=== PATIENT | male | born 1935 | race Caucasian/White ===

== ENCOUNTER 2016-07-12 19:54 | Inpatient (IN) | payer OTHER, BC ==
--- NOTE | 2016-07-12 19:59 | PDOC ---
History of Present Illness - General History Source: Family Exam Limitations: Other - History of Present Illness Initial Comments: 07/12/16 20:17 The patient is a 80 year old male, here with his and daughters with a significant past medical history of HTN, hypercholesterolemia, gout, anxiety, TIA, GI bleed, and depression, who presents to the emergency department with altered mental status since yesterday. The patients reports yesterday that the patient had an episode of choking where he turned blue. She reports the patient having respiratory distress and coughing during/after the choking episode. The notes that at around 10am today the patient was sleeping. His daughters later note that at around 4:00pm today they started to notice the patient was completely lethargic and had a lack of energy. It was also around this time where the daughter noticed the patient has had slurred/difficulty with speech since that was worse than his normal baseline. He denies chest pain and shortness of breath. He denies fever, chills, headache and dizziness. He denies nausea, vomit, diarrhea and constipation. He denies dysuria, frequency, urgency and hematuria. Allergies: Penicillin Social History: Nonsmoker PCP: Dr.Thomas Sears [phone] <Christopher Gallagher - Last Filed: 07/12/16 21:49> <Bobby Smith - Last Filed: 07/12/16 23:20> - General Stated Complaint: AMS Time Seen by Provider: 07/12/16 19:58 Past History <Christopher Gallagher - Last Filed: 07/12/16 21:49> - Past Medical History CVA: (TIA) GI Disorders: Yes (GI bleed) HTN: Yes Hypercholesterolemia: Yes Psychiatric Problems: Yes (AXIETY, DEPRESSION) - Immunization History Immunization Up to Date: Yes - Psycho/Social/Smoking Cessation Hx Anxiety: No Suicidal Ideation: No Smoking Status: No Smoking History: Never smoked Have you smoked in the past 12 months: No Number of Cigarettes Smoked Daily: 0 Hx Alcohol Use: No Drug/Substance Use Hx: No Substance Use Type: None Hx Substance Use Treatment: No <Bobby Smith - Last Filed: 07/12/16 23:20> - Past Medical History Allergies/Adverse Reactions: Allergies Allergy/AdvReac Type Severity Reaction Status Date / Time Penicillins Allergy Mild Nausea Verified 06/29/16 14:57 Home Medications: Ambulatory Orders Allopurinol [Zyloprim -] 300 mg PO DAILY 09/24/14 Atorvastatin Ca [Lipitor] 20 mg PO HS 09/24/14 Acetaminophen [Tylenol .Regular Strength -] 650 mg PO Q4H PRN #0 tablet Amlodipine Besylate [Norvasc -] 10 mg PO DAILY tablet 07/11/16 Aspirin [ASA -] 81 mg PO DAILY #0 tab.chew 07/11/16 Carvedilol [Coreg -] 25 mg PO BID #0 tablet 07/11/16 Fluoxetine HCl Liquid [Prozac 20mg/5mL Oral Solution -] 40 mg PO DAILY #0 ml Hydroxyurea [Hydrea 500Mg Capsule -] 500 mg PO BID@0600,1800 #0 capsule Risperidone [Risperdal -] 1 mg PO BID #0 tablet 07/11/16 Valsartan [Diovan] 160 mg PO DAILY #0 tablet 07/11/16 Alprazolam [Xanax] 1 mg PO QID PRN 07/12/16 Review of Systems - Review of Systems Comments:: 07/12/16 20:17 CONSTITUTIONAL: Yes: lethargic. No fever, no chills, no fatigue EYES: No visual changes ENT: No ear pain, no sore throat CARDIOVASCULAR: No chest pain, no palpitations RESPIRATORY: No cough, no SOB GI: No abdominal pain, no nausea, no vomiting, no constipation, no diarrhea GENITOURINARY: No dysuria, no frequency, no hematuria MUSKULOSKELETAL: No backpain, no joint pain, no myalgias SKIN: No rash NEURO: Yes: AMS. No headache <Christopher Gallagher - Last Filed: 07/12/16 21:49> *Physical Exam - Vital Signs Last Vital Signs Temp Pulse Resp BP Pulse Ox 99.8 F H 64 26 H 110/64 92 L 07/12/16 19:59 07/12/16 19:59 07/12/16 19:59 07/12/16 19:59 07/12/16 19:59 <Christopher Gallagher - Last Filed: 07/12/16 21:49> - Physical Exam Comments: 07/12/16 20:28 EXAMINATION CONSTITUTIONAL: Lethargic but arousable, moaning incoherently, morbidly obese, and mild to moderate respiratory distress HEAD: Normocephalic; atraumatic EYES: PERRL; EOM intact; no scleral icterus; conjunctivae were pink; ENMT: External appears normal; mm-dry NECK: Supple; non-tender; no bruits CARD: Normal S1, S2; no murmurs, rubs, or gallops RESP: Shallow respirations; + bilateral rhonchi (worse at the bases); ABD: Soft, non-distended; non-tender; no palpable organomegaly, no palpable hernias EXT: No edema; no deformity, non-tender to palpation; distal pulses intact SKIN: Warm, dry, no petechia NEURO: Patient is lethargic but arousable, moaning incoherently; follows simple Commands; I'm unable to test cranial nerves; + pronation drift on the left; motor: Right upper extremity-5/5; left upper extremity-4/5; right lower extremity-5/5; left lower extremity -3/5; Babinski is positive on the left; gait -deferred. <Bobby Smith - Last Filed: 07/12/16 23:20> Heart Score/ECG Review - ECG Impressions Comment:: 07/12/16 20:52 EKG impressions reported by at 8:43pm: Normal sinus rhythm at 64 bpm OR interval at 194 ms QTc 445 ms <Christopher Gallagher - Last Filed: 07/12/16 21:49> ED Treatment Course - LABORATORY CBC & Chemistry Diagram: 07/12/16 20:15 07/12/16 20:15 - RADIOLOGY Radiograph Interpretation: 07/12/16 21:49 EXAM: HEAD CT WITHOUT CONTRAST impression reported by Dr.[place] Byrd FINDINGS: No acute intracranial hemorrhage, midline shift or extra-axial collection. No acute territorial infarction. There is a small vessel ischemic change and atrophy. Bilateral ethmoid and maxillary sinus because of thickening. No acute calvarial fracture. EXAM: CT abdomen and CT pelvis without contrast impressions reported by Dr.[place] Byrd FINDINGS: Cardiomegaly. No pericardial effusion. No aortic aneurysm. The right lower lobe infiltrate and/or atelectasis. Atelectatic changes left base. Trace bilateral pleural effusions. 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 Patient had experienced a choking episode 24 hours previously during which he was noted to turn cyanotic. In the ER, patient is lethargic but arousable, moaning coherently, follows simple commands. Differential diagnoses includes aspiration pneumonia versus PE versus recurrent CVA. Patient is not a TPA candidate at this time given that last known well was approximately 18-24 hours prior to presentation. Will obtain repeat CT of head to rule out recurrent infarction. We'll perform a septic workup to evaluate for possible aspiration pneumonia. We will administer Combivent therapy. Will reassess. Likely admission. 07/12/16 22:41 Patient reassessed. Patient appears much more alert and awake, with more legible speech although it is still slurred. Patient follows commands. CT of head shows no evidence of acute intracranial pathology. CT of chest shows right lower lobe infiltrate, cardiomegaly and bilateral small pleural effusions. CBC reveals mild leukocytosis as well as persistent thrombocytosis. CMP reveals worsening BUN and creatinine likely related to acute renal insufficiency. Urinalysis within normal limit. ABG reveals severe hypoxemia on room air. I suspect aspiration pneumonia at this time. I discussed the case with Dr. Rishi eason. He recommends administration of ertapenem. Will admit to noncardiac telemetry for further treatment. <Bobby Smith - Last Filed: 07/12/16 23:20> *DC/Admit/Observation/Transfer - Attestations Scribe Attestion: 07/12/16 20:18 Documentation prepared by Christopher Gallagher, acting as biomedical manager for Bobby Smith MD. <Christopher Gallagher - Last Filed: 07/12/16 21:49> - Discharge Dispostion Admit: Yes - Attestations Physician Attestion: 07/12/16 20:58 The documentation was prepared by the scribe under my direct supervision. I have reviewed the documentation which correctly represents the findings, medical decision-making and critical action taken by me. <Bobby Smith - Last Filed: 07/12/16 23:20> Diagnosis at time of Disposition: Acute renal insufficiency Altered mental status Qualifiers: Altered mental status type: transient alteration of awareness Qualified Code(s) : R40.4 - Transient alteration of awareness Pneumonia Qualifiers: Pneumonia type: aspiration pneumonia Aspiration pneumonia type: unspecified Laterality: right Lung location: lower lobe of lung Qualified Code(s): J69.0 - Pneumonitis due to inhalation of food and vomit - Discharge Dispostion Condition at time of disposition: Guarded - Referrals Referrals: Homero Proctor MD [Primary Care Provider] -
[2016-07-12] MEDS ORDERED: SODIUM CHLORIDE 0.9% 1000 ML INFUS.BAG IV PRN (20:09)
[2016-07-12] MEDS ORDERED: ALBUTEROL SO4 2.5/IPRATROPIUM 0.5 INH SOL 3 ML VIAL.NEB. NEB ONE (20:10)
[2016-07-12 20:15] VITALS: BMI 31.0
[2016-07-12 20:31] LABS: WHITE BLOOD COUNT 14.3 K/mm3 (4.0-10.0)
[2016-07-12 20:37] LABS: VENOUS PH 7.29 (7.31-7.41)
[2016-07-12 20:39] LABS: VENOUS BLOOD GAS HCO3 23.1 meq/L (22-29)
[2016-07-12 20:45] LABS: INR 1.12 (0.82-1.09); PROTHROMBIN TIME (PATIENT) 12.4 SEC (9.98-11.88)
[2016-07-12 20:46] LABS: MCH 30.1 pg (25.7-33.7); MCHC 32.4 g/dl (32.0-35.9); MEAN CELL VOLUME 93.1 fl (80-96); MEAN PLT VOLUME 8.8 fl (7.5-11.1); PLATELET COUNT 638 K/MM3 (134-434)
[2016-07-12 20:48] LABS: ACTIVATED PTT 31.9 SECONDS (26.9-34.4)
[2016-07-12 20:56] LABS: ALBUMIN 3.1 g/dl (3.4-5.0); BILIRUBIN,TOTAL 0.6 mg/dL (0.2-1.0); CALCIUM 8.9 mg/dL (8.5-10.1); CREATININE 2.6 mg/dL (0.7-1.3); TOT PROT 6.7 g/dl (6.4-8.2)
[2016-07-12 20:58] LABS: TROPONIN I 0.02 ng/ml (0.00-0.05)
[2016-07-12 20:59] LABS: URINE APPEARANCE CLEAR; URINE BILIRUBIN NEGATIVE (NEGATIVE); URINE BLOOD NEGATIVE (NEGATIVE); URINE COLOR YELLOW; URINE GLUCOSE (UA) NEGATIVE (NEGATIVE); URINE KETONE NEGATIVE (NEGATIVE); URINE LEUK ESTERASE NEGATIVE (NEGATIVE); URINE NITRITE NEGATIVE (NEGATIVE); URINE PROTEIN NEGATIVE (NEGATIVE); URINE UROBILINOGEN 2.0 E.U/dl E.U./dl (0.2-1.0)
[2016-07-12 21:53] LABS: PLATELET COMMENT2 NO CLOTTING DETECTED; PLATELET COMMENT3 FEW LARGE PLTS; PLATELET ESTIMATE INCREASED (NORMAL)
[2016-07-12 21:57] LABS: ARTERIAL BLD GAS O2 SATURATION 84.9 % (90-98.9); ARTERIAL BLOOD GAS HCO3 25.8 meq/L (22-26); ARTERIAL BLOOD GAS pH 7.38 (7.35-7.45)
[2016-07-12 21:58] LABS: ALLENS TEST POSITIVE; METHEMOGLOBIN 1.4 % (0.4-1.5)
[2016-07-12 21:59] LABS: ART PUNCT SITE RIGHT RADIAL; LPM/O2% 21%; PT. ON O2? NO; TYPE OF O2 ROOM AIR
[2016-07-12 22:00] LABS: ARTERIAL BLOOD GAS PO2 52.3 mmHg (70-100)
[2016-07-12] MEDS ORDERED: SODIUM CHLORIDE 500 ML IV STA (22:08)
[2016-07-12] MEDS ORDERED: ERTAPENEM SODIUM 1 GM in SODIUM CHLORIDE 50 ML IVPB ONE (22:16)
[2016-07-12] MEDS ORDERED: ERTAPENEM SODIUM 1 GM VIAL ONE (22:39)
[2016-07-12] MEDS ORDERED: ALPRAZolam 2 MG TABLET ONE (22:55)
[2016-07-12] MEDS ORDERED: ATORVASTATIN CA 40 MG TABLET (FP) ONE (22:56)
--- NOTE | 2016-07-12 23:08 | PN ---
Teaching Attending Note Name of Resident: Rosa Pina ATTENDING PHYSICIAN STATEMENT I saw and evaluated the patient. I reviewed the resident's note and discussed the case with the resident. I agree with the resident's findings and plan as documented. SUBJECTIVE: OBJECTIVE: ASSESSMENT AND PLAN:
[2016-07-12] MEDS ORDERED: ATORVASTATIN CA 20 MG TABLET (FP) PO ONE (23:15)
[2016-07-13] MEDS ORDERED: D5-1/2NS+20 MEQ KCL - 1,000 ML IV SCH (00:50)
[2016-07-13 07:21] LABS: BASOPHIL 1.1 % (0-2.0); EOSINOPHIL 5.7 % (0-4.5); MCH 31.7 pg (25.7-33.7); MCHC 33.4 g/dl (32.0-35.9); MEAN CELL VOLUME 94.9 fl (80-96); MEAN PLT VOLUME 8.5 fl (7.5-11.1); NEUTROPHILS 62.6 % (42.8-82.8); PLATELET COUNT 573 K/MM3 (134-434); RDW 14.2 % (11.9-15.9); WHITE BLOOD COUNT 10.7 K/mm3 (4.0-10.0)
[2016-07-13 07:42] LABS: ALBUMIN 2.8 g/dl (3.4-5.0); CALCIUM 7.9 mg/dL (8.5-10.1); CREATININE 2.2 mg/dL (0.7-1.3)
[2016-07-13 07:45] LABS: BILIRUBIN,TOTAL 0.5 mg/dL (0.2-1.0); TOT PROT 6.1 g/dl (6.4-8.2); TROPONIN I 0.02 ng/ml (0.00-0.05)
--- NOTE | 2016-07-13 08:34 | PN ---
Progress Note, Physician Chief Complaint: ID Poorly responsive Sats in the low 90s Gave Ertepenem after discussion wit ER - Current Medication List Current Medications: Active Medications Potassium Chloride/Dextrose/Sod Cl (D5-1/2ns+20 Meq Kcl -) 1,000 mls @ 75 mls/ hr IV ASDIR LORENE Last Admin: 07/13/16 03:22 Dose: 75 mls/hr Ertapenem 1 gm/ Sodium (Chloride) 50 mls @ 100 mls/hr IVPB DAILY LORENE Influenza Virus Vaccine (Fluvirin) 45 mcg IM .ONCE ONE Stop: 07/13/16 09:01 Pneumococcal 13-Valent Conj Vacc (Prevnar 13 Syringe -) 0.5 ml IM .ONCE ONE Stop: 07/13/16 09:01 - Objective Vital Signs: Vital Signs Temperature 98.2 F 07/13/16 08:11 Pulse Rate 65 07/13/16 08:11 Respiratory Rate 20 07/13/16 08:11 Blood Pressure 124/67 07/13/16 08:11 O2 Sat by Pulse Oximetry (%) 92 L 07/13/16 01:41 Constitutional: Yes: Other (Unresponsive) Neck: Yes: WNL, Supple Cardiovascular: Yes: S1, S2, Varicosities Respiratory: Yes: WNL, CTA Bilaterally Gastrointestinal: Yes: WNL, Normal Bowel Sounds, Soft Edema: No Labs: CBC, BMP 07/13/16 06:00 07/13/16 06:00 INR, PTT INR 1.12 (0.82-1.09) 07/12/16 20:15 Problem List - Problems (1) Altered mental status Code(s): R41.82 - ALTERED MENTAL STATUS, UNSPECIFIED Qualifiers: Altered mental status type: transient alteration of awareness Qualified Code(s): R40.4 - Transient alteration of awareness (2) Sepsis Code(s): A41.9 - SEPSIS, UNSPECIFIED ORGANISM (3) Aspiration pneumonia Code(s): J69.0 - PNEUMONITIS DUE TO INHALATION OF FOOD AND VOMIT Assessment/Plan Laboratory Tests 07/12/16 07/12/16 07/12/16 20:15 20:15 20:15 WBC 14.3 H RBC 4.39 Hct 40.9 Plt Count 638 H ABG pH ABG pCO2 at Pt Temp ABG pO2 at Pt Temp POC VBG pCO2 49.2 BUN 45 H D Creatinine 2.6 H D Creat Clearance w eGFR 23.99 Lactic Acid 07/12/16 07/13/16 21:45 03:30 WBC RBC Hct Plt Count ABG pH 7.38 ABG pCO2 at Pt Temp 44.5 ABG pO2 at Pt Temp 52.3 L D POC VBG pCO2 BUN Creatinine Creat Clearance w eGFR Lactic Acid 4.142 H* Assessment Altered mental status toxic metabolic encephalopathy Aspiration PNA ANSELMO Thrombocytosis Plan Ertepenem Plan Ertepenem 1 gr daily PCN allergic Consider neuro evaluation and ICU transfer Ritu ÁLVAREZ
[2016-07-13] MEDS ORDERED: PNEUMOC 13-VAL CONJ-DIP CRM/PF 0.5 ML DISP.SYRIN IM ONE (09:00)
[2016-07-13] MEDS ORDERED: INFLUENZA VACCINE 45 MCG/0.5 ML (MDV 16-17) IM ONE (09:00)
--- NOTE | 2016-07-13 09:14 | HP ---
Admitting History and Physical - Admission History of Present Illness: 80 year old male with a significant past medical history of HTN, hypercholesterolemia, gout, anxiety, TIA, GI bleed, and depression, who presents to the emergency department with altered mental status since yesterday. The patients reports that the patient had an episode of choking where he turned blue. She reports the patient having respiratory distress and coughing during/after the choking episode. Due to lethargy and had a lack of energy he was sent to er. 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 Cardiovascular: Yes: HTN, Hyperlipdemia Psych: Yes: Anxiety, Depression - Smoking History Smoking history: Never smoked Have you smoked in the past 12 months: No Aproximately how many cigarettes per day: 0 - Alcohol/Substance Use Hx Alcohol Use: No Home Medications - Allergies Allergies/Adverse Reactions: Allergies Allergy/AdvReac Type Severity Reaction Status Date / Time Penicillins Allergy Mild Nausea Verified 06/29/16 14:57 - Home Medications Home Medications: Ambulatory Orders Allopurinol [Zyloprim -] 300 mg PO DAILY 09/24/14 Atorvastatin Ca [Lipitor] 20 mg PO HS 09/24/14 Acetaminophen [Tylenol .Regular Strength -] 650 mg PO Q4H PRN #0 tablet Amlodipine Besylate [Norvasc -] 10 mg PO DAILY tablet 07/11/16 Aspirin [ASA -] 81 mg PO DAILY #0 tab.chew 07/11/16 Carvedilol [Coreg -] 25 mg PO BID #0 tablet 07/11/16 Fluoxetine HCl Liquid [Prozac 20mg/5mL Oral Solution -] 40 mg PO DAILY #0 ml Hydroxyurea [Hydrea 500Mg Capsule -] 500 mg PO BID@0600,1800 #0 capsule Risperidone [Risperdal -] 1 mg PO BID #0 tablet 07/11/16 Valsartan [Diovan] 160 mg PO DAILY #0 tablet 07/11/16 Alprazolam [Xanax] 1 mg PO QID PRN 07/12/16 Review of Systems - Review of Systems Constitutional: reports: Lethargy Respiratory: reports: Cough Neurological: reports: Change in LOC, Weakness Physical Examination Vital Signs: Vital Signs Temperature 98.2 F 07/13/16 08:11 Pulse Rate 65 07/13/16 08:11 Respiratory Rate 20 07/13/16 08:11 Blood Pressure 124/67 07/13/16 08:11 O2 Sat by Pulse Oximetry (%) 92 L 07/13/16 01:41 Neck: Yes: Supple Cardiovascular: Yes: Regular Rate and Rhythm Respiratory: Yes: Rhonchi Gastrointestinal: Yes: Normal Bowel Sounds, Soft. No: Tenderness Edema: No Labs: CBC, BMP 07/13/16 06:00 07/13/16 06:00 Problem List - Problems (1) Sepsis Assessment/Plan: IV ABX MONITOR LACTIC ACID ID ON BOARD HYDRATION ICU EVAL Code(s): A41.9 - SEPSIS, UNSPECIFIED ORGANISM (2) Acute renal insufficiency Assessment/Plan: IVF WILL INCREASE FLUIDS TO DNS @ 125 MONITOR Code(s): N28.9 - DISORDER OF KIDNEY AND URETER, UNSPECIFIED (3) Altered mental status Assessment/Plan: MONITOR ON FLUIDS AND ABX AWAIT OFFICIAL CT RESULTS Code(s): R41.82 - ALTERED MENTAL STATUS, UNSPECIFIED Qualifiers: Altered mental status type: transient alteration of awareness Qualified Code(s): R40.4 - Transient alteration of awareness (4) Pneumonia Assessment/Plan: IV ABX D/W DR STREETER MONITOR LACTIC ACID Code(s): J18.9 - PNEUMONIA, UNSPECIFIED ORGANISM Qualifiers: Pneumonia type: aspiration pneumonia Aspiration pneumonia type: unspecified Laterality: right Lung location: lower lobe of lung Qualified Code(s): J69.0 - Pneumonitis due to inhalation of food and vomit (5) Anxiety and depression Assessment/Plan: HOLD MEDS DUE TO LETHARGY Code(s): F41.9 - ANXIETY DISORDER, UNSPECIFIED F32.9 - MAJOR DEPRESSIVE DISORDER, SINGLE EPISODE, UNSPECIFIED (6) DVT prophylaxis Assessment/Plan: SQ HEPARIN Code(s): [id number] - (7) Thrombocytosis Assessment/Plan: CONTINUE WIT MEDS Code(s): D47.3 - ESSENTIAL (HEMORRHAGIC) THROMBOCYTHEMIA
[2016-07-13] MEDS: FLUoxetine HCL 20 MG CAPSULE (FP) PO SCH (09:44)
[2016-07-13] MEDS: CARVEDILOL 25 MG TABLET (FP) PO SCH ×2 (09:44→21:44)
[2016-07-13] MEDS: ASPIRIN 81 MG CHEWABLE TABLETS PO SCH (09:44)
[2016-07-13] MEDS: ALLOPURINOL 300 MG TABLET (FP) PO SCH (09:45)
[2016-07-13] MEDS ORDERED: ERTAPENEM SODIUM 1 GM in SODIUM CHLORIDE 50 ML IVPB SCH (10:00)
[2016-07-13] MEDS: ERTAPENEM SODIUM 1 GM in SODIUM CHLORIDE 50 ML IVPB SCH (10:52)
[2016-07-13] MEDS: POTASSIUM CHLORIDE 10 MEQ in DEXTROSE 5%-NORMAL SALINE 1,000 ML IVPB SCH ×2 (10:52→19:45)
--- NOTE | 2016-07-13 11:41 | CONS ---
DATE OF CONSULTATION: DATE OF DICTATION: 07/13/2016 This is a 80-year-old male who I am asked to see, having discussed the case with Dr. Smith in the ER, for sepsis syndrome and pneumonia. The patient has a history of a thrombocytosis, for which he was recently seen and evaluated and discharged only several days ago to a half-way. He apparently has a history of an esophageal disorder with swallowing difficulty and is on a puree diet. Yesterday, he apparently tried to eat solid food and started choking and subsequently developed respiratory distress. He was then noted to be extremely lethargic and brought to the emergency room with the ER note indicating slurred and difficult speech. He had a CT scan of the head done, which is currently pending the report. He was also noted to be in respiratory failure with pneumonia and given a dose of ertapenem in the face of a PENICILLIN allergy. PAST MEDICAL HISTORY: Hypertension, hyperlipidemia, gout, TIA, GI bleeding, depression, and primary thrombocytosis. MEDICATIONS: Allopurinol, atorvastatin, amlodipine, aspirin, carvedilol, Prozac, hydroxyurea, Risperdal, Diovan, and Xanax. ALLERGIES: PENICILLIN. SOCIAL HISTORY: . Never smoked. No history of substance abuse. FAMILY HISTORY: Reviewed and noncontributory. REVIEW OF SYSTEMS: Respiratory: Tachypnea. No cough or hemoptysis. Cardiac: No chest pain, palpitations, syncope, murmur. Gastrointestinal: No abdominal pain, vomiting. Positive choking episode. No blood per rectum. Genitourinary: Currently incontinent of urine. No gross hematuria noted. PHYSICAL EXAMINATION: General: He was an elderly male, poorly responsive to verbal stimuli. Vital Signs: His temperature maximum was 99.8, but currently afebrile. Pulse 61, blood pressure 116/59, respirations 18, O2 saturation 92% on nasal cannula 2 L. Neck: Supple. Lungs: Clear to percussion and auscultation. Heart: S1, S2, regular rhythm without audible murmur. Abdomen: Soft, nontender without hepatosplenomegaly. Extremities: Without clubbing, cyanosis, or edema. The white count was 14.3, hemoglobin 13.2, platelets of 638 with 78% polyps, 5 lymphs, 5 monos, 6 eosinophils, 5 reactive lymphocytes. INR 1.2. ABG 7.38, 44, 58 on room air. BUN 40, creatinine 2.2. Liver enzymes within normal limits. Urinalysis screening negative for nitrites and leukocyte esterase. Two sets of blood cultures, urine culture pending. CT scan of the chest was reviewed and shows bilateral infiltrates, more pronounced on the right side with air bronchograms. CT of the head report pending. ASSESSMENT: A 80-year-old male recently discharged with history of subacute cerebrovascular accident and primary thrombocytosis, presents now following a choking episode on solid food, during which he probably aspirated. 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 He is PENICILLIN allergic and has been given ertapenem after discussion with Dr. Smith. At this point in time, we will await blood and urine cultures, continue ertapenem 1 g IV every 24 hours. Case was discussed with Dr. De Leon regarding the possible need for ICU transfer, in view of his depressed sensorium and severe hypoxemia. Neurology consult is considered. Awaiting head CT report. JEFFREY HORVATH M.D. [id number]
--- NOTE | 2016-07-13 12:36 | CONSULT ---
Consult Consult Specialty:: PULMONARY Reason for Consultation:: PNEUMONIA - History of Present Illness Chief Complaint: SOB/COUGH History of Present Illness: The patient is a 80 year old male, here with his and daughters with a significant past medical history of HTN, hypercholesterolemia, gout, anxiety, TIA, GI bleed, and depression, who presents to the emergency department with altered mental status since yesterday. The patients reports yesterday that the patient had an episode of choking where he turned blue. She reports the patient having respiratory distress and coughing during/after the choking episode. The notes that at around 10am today the patient was sleeping. His daughters later note that at around 4:00pm today they started to notice the patient was completely lethargic and had a lack of energy. It was also around this time where the daughter noticed the patient has had slurred/difficulty with speech since that was worse than his normal baseline. He denies chest pain and shortness of breath. He denies fever, chills, headache and dizziness. He denies nausea, vomit, diarrhea and constipation. He denies dysuria, frequency, urgency and hematuria. 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 Cardio/Vascular: Yes: HTN, Hyperlipdemia Psych: Yes: Anxiety, Depression - Alcohol/Substance Use Hx Alcohol Use: No - Smoking History Smoking history: Never smoked Have you smoked in the past 12 months: No Aproximately how many cigarettes per day: 0 - Social History Usual Living Arrangement: With Spouse Home Medications - Allergies Allergies/Adverse Reactions: Allergies Allergy/AdvReac Type Severity Reaction Status Date / Time Penicillins Allergy Mild Nausea Verified 06/29/16 14:57 - Home Medications Home Medications: Ambulatory Orders Allopurinol [Zyloprim -] 300 mg PO DAILY 09/24/14 Atorvastatin Ca [Lipitor] 20 mg PO HS 09/24/14 Acetaminophen [Tylenol .Regular Strength -] 650 mg PO Q4H PRN #0 tablet Amlodipine Besylate [Norvasc -] 10 mg PO DAILY tablet 07/11/16 Aspirin [ASA -] 81 mg PO DAILY #0 tab.chew 07/11/16 Carvedilol [Coreg -] 25 mg PO BID #0 tablet 07/11/16 Fluoxetine HCl Liquid [Prozac 20mg/5mL Oral Solution -] 40 mg PO DAILY #0 ml Hydroxyurea [Hydrea 500Mg Capsule -] 500 mg PO BID@0600,1800 #0 capsule Risperidone [Risperdal -] 1 mg PO BID #0 tablet 07/11/16 Valsartan [Diovan] 160 mg PO DAILY #0 tablet 07/11/16 Alprazolam [Xanax] 1 mg PO QID PRN 07/12/16 Family Disease History - Family Disease History Family History: Unable to Obtain Review of Systems Unable to obtain ROS, reason: UNABLE Physical Exam Vital Sings: Vital Signs Temperature 98.2 F 07/13/16 08:11 Pulse Rate 65 07/13/16 08:11 Respiratory Rate 20 07/13/16 08:11 Blood Pressure 124/67 07/13/16 08:11 O2 Sat by Pulse Oximetry (%) 92 L 07/13/16 01:41 Constitutional: Yes: Calm Eyes: Yes: EOM Intact HENT: Yes: Normocephalic Neck: Yes: Trachea Midline Cardiovascular: Yes: S1, S2 Respiratory: Yes: Diminished Gastrointestinal: Yes: Soft Edema: No Neurological: Yes: Pre-Existing Deficit Labs: CBC, BMP 07/13/16 06:00 07/13/16 06:00 ABG Results ABG pH 7.38 (7.35-7.45) 07/12/16 21:45 ABG pCO2 at Pt Temp 44.5 mmHg (35-45) 07/12/16 21:45 ABG pO2 at Pt Temp 52.3 mmHg (70-100) L D 07/12/16 21:45 ABG HCO3 25.8 meq/L (22-26) 07/12/16 21:45 ABG O2 Sat (Measured) 84.9 % (90-98.9) L 07/12/16 21:45 ABG O2 Content 14.4 % vol (15-22) L 07/12/16 21:45 ABG Base Excess 1.0 meq/l (-2-2) 07/12/16 21:45 Imaging - Results Chest X-ray: Image Reviewed Cat Scan: Image Reviewed Problem List - Problems (1) Acute renal insufficiency Code(s): N28.9 - DISORDER OF KIDNEY AND URETER, UNSPECIFIED (2) Altered mental status Code(s): R41.82 - ALTERED MENTAL STATUS, UNSPECIFIED Qualifiers: Altered mental status type: transient alteration of awareness Qualified Code(s): R40.4 - Transient alteration of awareness (3) Aspiration pneumonia Code(s): J69.0 - PNEUMONITIS DUE TO INHALATION OF FOOD AND VOMIT (4) Pneumonia Code(s): J18.9 - PNEUMONIA, UNSPECIFIED ORGANISM Qualifiers: Pneumonia type: aspiration pneumonia Aspiration pneumonia type: unspecified Laterality: right Lung location: lower lobe of lung Qualified Code(s): J69.0 - Pneumonitis due to inhalation of food and vomit (5) Sepsis Code(s): A41.9 - SEPSIS, UNSPECIFIED ORGANISM (6) Anxiety and depression Code(s): F41.9 - ANXIETY DISORDER, UNSPECIFIED F32.9 - MAJOR DEPRESSIVE DISORDER, SINGLE EPISODE, UNSPECIFIED Assessment/Plan GIVEN CLINICAL SCENARIO I AGREE WITH PRESUMPTIVE DIAGNOSIS OF ASPIRATION PNEUMONIA H/O HTN/TIA/HPL/GOUT/ANXIETY-DEPRESSIVE DISORDER/GI BLD AWAIT OFFICIAL REPORTS CT BRAIN/CHEST AGREE WITH ANTIBIOTICS/SUPPLEMENTAL O2/BRONCHODILATORS MONITOR ON TELE/CULTURES PENDING WILL FOLLOW Micah MCCORMICK MD
--- NOTE | 2016-07-13 13:20 | EKG ---
Test Reason : Blood Pressure : / mmHG Vent. Rate : 064 BPM Atrial Rate : 064 BPM P-R Int : 194 ms QRS Dur : 108 ms QT Int : 432 ms P-R-T Axes : 033 -24 109 degrees QTc Int : 445 ms NORMAL SINUS RHYTHM MINIMAL VOLTAGE CRITERIA FOR LVH, MAY BE NORMAL VARIANT T WAVE ABNORMALITY, CONSIDER LATERAL ISCHEMIA ABNORMAL ECG WHEN COMPARED WITH ECG OF 29-JUN-2016 14:55, MINIMAL CRITERIA FOR SEPTAL INFARCT ARE NO LONGER PRESENT Confirmed by MD MAJOR, PADMA ([id number]) on 07/13/2016 1:19:43 PM Referred By: Overread By: PADMA GONSALVES MD
--- NOTE | 2016-07-13 13:25 | EKG ---
Test Reason : Blood Pressure : / mmHG Vent. Rate : 064 BPM Atrial Rate : 064 BPM P-R Int : 192 ms QRS Dur : 108 ms QT Int : 420 ms P-R-T Axes : 034 -26 096 degrees QTc Int : 433 ms NORMAL SINUS RHYTHM T WAVE ABNORMALITY, CONSIDER LATERAL ISCHEMIA ABNORMAL ECG WHEN COMPARED WITH ECG OF 12-JUL-2016 20:40, NO SIGNIFICANT CHANGE WAS FOUND Confirmed by MD MAJOR, PADMA ([id number]) on 07/13/2016 1:25:17 PM Referred By: AILYN EID Overread By: PADMA GONSALVES MD
--- NOTE | 2016-07-13 18:35 | CONSULT ---
Consult Consult Specialty:: NEUROLOGY Reason for Consultation:: confusion, aphasia, lethargy - History of Present Illness History of Present Illness: 80 year old male,with a significant past medical history of right thalamic stroke two weeks ago, HTN, hypercholesterolemia, gout, anxiety, TIA, GI bleed, and depression, who presents to the emergency department with altered mental status for two days. The patients reports yesterday that the patient had an episode of choking where he turned blue. She reports the patient having respiratory distress and coughing during/after the choking episode. The notes that at around 10am today the patient was sleeping. His daughters later note that at around 4:00pm today they started to notice the patient was completely lethargic and had a lack of energy. It was also around this time where the daughter noticed the patient has had slurred/difficulty with speech since that was worse than his normal baseline. To note this patient was seen in [facility] two weeks ago on 2015 and MRI /MRA brain at that time was read as acute hemmorhagic infarct right peduncle and right thalamus. There are also chronic hypodensities bilaterally suggestive of chronic lacunar strokes. Per family they were not aware in the past ( before june) of patient having a stroke. 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, TIA Cardio/Vascular: Yes: HTN, Hyperlipdemia Psych: Yes: Anxiety, Depression - Alcohol/Substance Use Hx Alcohol Use: No - Smoking History Smoking history: Never smoked Have you smoked in the past 12 months: No Aproximately how many cigarettes per day: 0 - Social History Usual Living Arrangement: With Spouse Home Medications - Allergies Allergies/Adverse Reactions: Allergies Allergy/AdvReac Type Severity Reaction Status Date / Time Penicillins Allergy Mild Nausea Verified 06/29/16 14:57 - Home Medications Home Medications: Ambulatory Orders Allopurinol [Zyloprim -] 300 mg PO DAILY 09/24/14 Atorvastatin Ca [Lipitor] 20 mg PO HS 09/24/14 Acetaminophen [Tylenol .Regular Strength -] 650 mg PO Q4H PRN #0 tablet Amlodipine Besylate [Norvasc -] 10 mg PO DAILY tablet 07/11/16 Aspirin [ASA -] 81 mg PO DAILY #0 tab.chew 07/11/16 Carvedilol [Coreg -] 25 mg PO BID #0 tablet 07/11/16 Fluoxetine HCl Liquid [Prozac 20mg/5mL Oral Solution -] 40 mg PO DAILY #0 ml Hydroxyurea [Hydrea 500Mg Capsule -] 500 mg PO BID@0600,1800 #0 capsule Risperidone [Risperdal -] 1 mg PO BID #0 tablet 07/11/16 Valsartan [Diovan] 160 mg PO DAILY #0 tablet 07/11/16 Alprazolam [Xanax] 1 mg PO QID PRN 07/12/16 Review of Systems - Review of Systems Constitutional: reports: Chills, Diaphoresis, Fever, Lethargy Eyes: reports: No Symptoms HENT: reports: No Symptoms Neck: reports: No Symptoms Cardiovascular: reports: Edema Respiratory: reports: Cough Gastrointestinal: reports: No Symptoms Genitourinary: reports: No Symptoms Breasts: reports: No Symptoms Reported Musculoskeletal: reports: No Symptoms Neurological: reports: Change in LOC, Change in Speech, Confusion, Pre-Existing Deficit Endocrine: reports: No Symptoms Hematology/Lymphatic: reports: No Symptoms Psychiatric: reports: Other (confused, memory problems) Physical Exam-Neuro Vital Signs: Vital Signs Temperature 98.3 F 07/13/16 15:00 Pulse Rate 68 07/13/16 15:00 Respiratory Rate 20 07/13/16 15:00 Blood Pressure 133/72 07/13/16 15:00 O2 Sat by Pulse Oximetry (%) 92 L 07/13/16 01:41 Constitutional: Yes: Mild Distress Neck: Yes: Supple, Trachea Midline Cardiovascular: Yes: Regular Rate and Rhythm, S1, S2 Respiratory: Yes: Regular, CTA Bilaterally Gastrointestinal: Yes: Normal Bowel Sounds, Soft Renal/: Yes: WNL Musculoskeletal: Yes: WNL Edema: Yes Edema: LLE: 1+, RLE: 1+ Psychiatric: Yes: Alert Labs: CBC, BMP 07/13/16 06:00 07/13/16 06:00 INR, PTT INR 1.12 (0.82-1.09) 07/12/16 20:15 - Neuro Exam Level Of Consciousness: Yes: Alert, Oriented to Person Eyes: Yes: PERRLA Speech: Broca's Aphasia Dominant Hand: Right Cranial Nerves II-XII Intact: Yes Gag: Present DTR's: 1+ Left Bicep, 1+ Right Bicep, 1+ Left Tricep, 1+ Right Tricep, 1+ Left Brachioradialis, 1+ Right Brachioradialis, 1+ Left Achilles, 1+ Right Achilles Babinski: Absent Response to light touch: Normal Response to pain prick: Normal Response to temperature: Normal Movement Disorders: Spasticity Coordination: Normal: Finger to Nose (ataxia. NIHS is 7 p 2p ataxia FTN 1p one command, 1p one question answered, 1p aphasia, 1p dysarthria. 1p extinction) Motor Strength: 5/5: Left Arm, Right Arm, Left Leg, Right Leg Gait: Deferred Imaging - Results Ultrasound: Report Reviewed MRI: Report Reviewed, Image Reviewed EKG: Report Reviewed Problem List - Problems (1) Aspiration pneumonia Code(s): J69.0 - PNEUMONITIS DUE TO INHALATION OF FOOD AND VOMIT (2) Aphasia as late effect of cerebrovascular accident Code(s): I69.320 - APHASIA FOLLOWING CEREBRAL INFARCTION (3) Confusion state Code(s): F44.89 - OTHER DISSOCIATIVE AND CONVERSION DISORDERS (4) Dementia Code(s): F03.90 - UNSPECIFIED DEMENTIA WITHOUT BEHAVIORAL DISTURBANCE (5) Delirium due to another medical condition Code(s): F05 - DELIRIUM DUE TO KNOWN PHYSIOLOGICAL CONDITION Assessment/Plan 80 year old male,with a significant past medical history of right thalamic stroke two weeks ago, HTN, hypercholesterolemia, gout, anxiety, TIA, GI bleed, and depression, who presents to the emergency department with altered mental status for two days. The patients reports yesterday that the patient had an episode of choking where he turned blue. She reports the patient having respiratory distress and coughing during/after the choking episode. The notes that at around 10am today the patient was sleeping. His daughters later note that at around 4:00pm today they started to notice the patient was completely lethargic and had a lack of energy. It was also around this time where the daughter noticed the patient has had slurred/difficulty with speech since that was worse than his normal baseline. To note this patient was seen in [facility] two weeks ago on 2015 and MRI /MRA brain at that time was read as acute hemmorhagic infarct right peduncle and right thalamus. There are also chronic hypodensities bilaterally suggestive of chronic lacunar strokes. Per family they were not aware in the past ( before june) of patient having a stroke. Neurologic exam: patient is confused, expressive and receptive aphasia, follows intermittent one step commands. NIHS is 7p 1p for answering one question, 1p for follows one commands, 2p ataxia bilaterally UE. 1p aphasia, 1p dysarthria 1p extinction Impression: - global aphasia, delirium, baseline dementia, metabolic encephalopathy - possible new stroke ischemic. Plan: - repeat MRI brain stroke protocol but I would recommand contrast. I would request a radiology review of the MRI films as the lesion in the right peduncle is hyperintense on all modalities , which is not typical for hemmorhagic stroke. - PT/OT/ST - EEG to rule out seizures. - aspirations precautions - treat infection per medical team. - continues asa, statin, coreg. control BP - DVT prophylaxis. - echocardiogram, he already have stroke work up two weeks ago but he was never was evaluated by a neurologist. Thank you for this consult.
[2016-07-13] MEDS: ATORVASTATIN CA 20 MG TABLET (FP) PO SCH (21:44)
[2016-07-14] MEDS: POTASSIUM CHLORIDE 10 MEQ in DEXTROSE 5%-NORMAL SALINE 1,000 ML IVPB SCH ×3 (04:07→17:37)
[2016-07-14] MEDS: HYDROXYUREA 500 MG CAPSULE PO SCH ×4 (06:06→22:52)
[2016-07-14 06:57] LABS: BASOPHIL 1.4 % (0-2.0); EOSINOPHIL 7.4 % (0-4.5); MCH 31.6 pg (25.7-33.7); MCHC 33.2 g/dl (32.0-35.9); MEAN PLT VOLUME 8.5 fl (7.5-11.1); NEUTROPHILS 58.4 % (42.8-82.8); PLATELET COUNT 566 K/MM3 (134-434); WHITE BLOOD COUNT 8.4 K/mm3 (4.0-10.0)
[2016-07-14 07:20] LABS: ALBUMIN 2.8 g/dl (3.4-5.0); BILIRUBIN,TOTAL 0.6 mg/dL (0.2-1.0); CALCIUM 8.2 mg/dL (8.5-10.1); CREATININE 1.5 mg/dL (0.7-1.3); TOT PROT 6.4 g/dl (6.4-8.2)
[2016-07-14 07:22] LABS: TROPONIN I 0.02 ng/ml (0.00-0.05)
[2016-07-14] MEDS ORDERED: PT OWN MED DRAWER 7, Y5N ONE (09:09)
[2016-07-14] MEDS: FLUoxetine HCL 20 MG CAPSULE (FP) PO SCH (09:25)
[2016-07-14] MEDS: ALLOPURINOL 300 MG TABLET (FP) PO SCH (09:25)
[2016-07-14] MEDS: ERTAPENEM SODIUM 1 GM in SODIUM CHLORIDE 50 ML IVPB SCH (09:25)
[2016-07-14] MEDS: ASPIRIN 81 MG CHEWABLE TABLETS PO SCH (09:25)
[2016-07-14] MEDS: CARVEDILOL 25 MG TABLET (FP) PO SCH ×2 (09:25→22:52)
--- NOTE | 2016-07-14 09:37 | PN ---
Progress Note, Physician History of Present Illness: more awake periods of agitation - Current Medication List Current Medications: Active Medications Acetaminophen (Tylenol -) 650 mg PO Q4H PRN PRN Reason: FEVER OR PAIN Allopurinol (Zyloprim -) 300 mg PO DAILY [facility] Last Admin: 07/14/16 09:25 Dose: 300 mg Aspirin (Asa -) 81 mg PO DAILY [facility] Last Admin: 07/14/16 09:25 Dose: 81 mg Atorvastatin Calcium (Lipitor -) 20 mg PO HS [facility] Last Admin: 07/13/16 21:44 Dose: 20 mg Carvedilol (Coreg -) 25 mg PO BID [facility] Last Admin: 07/14/16 09:25 Dose: 25 mg Fluoxetine HCl (Prozac -) 40 mg PO DAILY [facility] Last Admin: 07/14/16 09:25 Dose: 40 mg Hydroxyurea (Hydrea -) 500 mg PO BID@0600,1800 [facility] Last Admin: 07/14/16 06:06 Dose: 500 mg Ertapenem 1 gm/ Sodium (Chloride) 50 mls @ 100 mls/hr IVPB DAILY [facility] Last Admin: 07/14/16 09:25 Dose: 100 mls/hr Potassium Chloride 10 meq/ (Dextrose/Sodium Chloride) 1,005 mls @ 125 mls/hr IVPB Q8H [facility] Last Admin: 07/14/16 08:55 Dose: Not Given - Objective Vital Signs: Vital Signs Temperature 97.8 F 07/14/16 06:00 Pulse Rate 72 07/14/16 06:00 Respiratory Rate 18 07/14/16 06:00 Blood Pressure 148/74 07/14/16 06:00 O2 Sat by Pulse Oximetry (%) 92 L 07/13/16 21:00 Cardiovascular: Yes: Regular Rate and Rhythm Respiratory: Yes: Diminished, On Nasal O2 Gastrointestinal: Yes: Normal Bowel Sounds, Soft Labs: CBC, BMP 07/14/16 05:00 07/14/16 05:00 INR, PTT INR 1.12 (0.82-1.09) 07/12/16 20:15 Problem List - Problems (1) Sepsis Assessment/Plan: IV ABX MONITOR LACTIC ACID ID ON BOARD HYDRATION ICU EVAL Code(s): A41.9 - SEPSIS, UNSPECIFIED ORGANISM (2) Acute renal insufficiency Assessment/Plan: IVF WILL INCREASE FLUIDS TO DNS @ 125 MONITOR Code(s): N28.9 - DISORDER OF KIDNEY AND URETER, UNSPECIFIED (3) Altered mental status Assessment/Plan: MONITOR ON FLUIDS AND ABX NEURO NOTED AWAIT MRI Code(s): R41.82 - ALTERED MENTAL STATUS, UNSPECIFIED Qualifiers: Altered mental status type: transient alteration of awareness Qualified Code(s): R40.4 - Transient alteration of awareness (4) Pneumonia Assessment/Plan: IV ABX D/W DR STREETER MONITOR LACTIC ACID Code(s): J18.9 - PNEUMONIA, UNSPECIFIED ORGANISM Qualifiers: Pneumonia type: aspiration pneumonia Aspiration pneumonia type: unspecified Laterality: right Lung location: lower lobe of lung Qualified Code(s): J69.0 - Pneumonitis due to inhalation of food and vomit (5) Anxiety and depression Assessment/Plan: RESUME SSRI HOLD RESPIRADOL MEDS DUE TO LETHARGY Code(s): F41.9 - ANXIETY DISORDER, UNSPECIFIED F32.9 - MAJOR DEPRESSIVE DISORDER, SINGLE EPISODE, UNSPECIFIED (6) DVT prophylaxis Assessment/Plan: SQ HEPARIN Code(s): [id number] - (7) Thrombocytosis Assessment/Plan: CONTINUE WIT MEDS Code(s): D47.3 - ESSENTIAL (HEMORRHAGIC) THROMBOCYTHEMIA (8) CVA (cerebral vascular accident) Assessment/Plan: R/O NEW EVENT MRI Code(s): I63.9 - CEREBRAL INFARCTION, UNSPECIFIED
--- NOTE | 2016-07-14 10:57 | PN ---
Progress Note, Physician History of Present Illness: pulmonary alert,comfortable,-resp distress - Current Medication List Current Medications: Active Medications Acetaminophen (Tylenol -) 650 mg PO Q4H PRN PRN Reason: FEVER OR PAIN Allopurinol (Zyloprim -) 300 mg PO DAILY [facility] Last Admin: 07/14/16 09:25 Dose: 300 mg Aspirin (Asa -) 81 mg PO DAILY [facility] Last Admin: 07/14/16 09:25 Dose: 81 mg Atorvastatin Calcium (Lipitor -) 20 mg PO HS [facility] Last Admin: 07/13/16 21:44 Dose: 20 mg Carvedilol (Coreg -) 25 mg PO BID [facility] Last Admin: 07/14/16 09:25 Dose: 25 mg Fluoxetine HCl (Prozac -) 40 mg PO DAILY [facility] Last Admin: 07/14/16 09:25 Dose: 40 mg Hydroxyurea (Hydrea -) 500 mg PO BID@0600,1800 [facility] Last Admin: 07/14/16 06:06 Dose: 500 mg Ertapenem 1 gm/ Sodium (Chloride) 50 mls @ 100 mls/hr IVPB DAILY [facility] Last Admin: 07/14/16 09:25 Dose: 100 mls/hr Potassium Chloride 10 meq/ (Dextrose/Sodium Chloride) 1,005 mls @ 125 mls/hr IVPB Q8H [facility] Last Admin: 07/14/16 08:55 Dose: Not Given - Objective Vital Signs: Vital Signs Temperature 98.1 F 07/14/16 09:00 Pulse Rate 65 07/14/16 09:00 Respiratory Rate 22 07/14/16 09:00 Blood Pressure 131/75 07/14/16 09:00 O2 Sat by Pulse Oximetry (%) 97 07/14/16 09:00 Constitutional: Yes: Well Nourished, Calm Eyes: Yes: WNL HENT: Yes: WNL Neck: Yes: WNL Cardiovascular: Yes: Regular Rate and Rhythm, S1, S2 Respiratory: Yes: Rales (bibasilar crackles) Gastrointestinal: Yes: Normal Bowel Sounds, Soft Extremities: Yes: WNL Edema: No Labs: CBC, BMP 07/14/16 05:00 07/14/16 05:00 INR, PTT INR 1.12 (0.82-1.09) 07/12/16 20:15 Problem List - Problems (1) Acute renal insufficiency Code(s): N28.9 - DISORDER OF KIDNEY AND URETER, UNSPECIFIED (2) Altered mental status Code(s): R41.82 - ALTERED MENTAL STATUS, UNSPECIFIED Qualifiers: Altered mental status type: transient alteration of awareness Qualified Code(s): R40.4 - Transient alteration of awareness (3) Aspiration pneumonia Code(s): J69.0 - PNEUMONITIS DUE TO INHALATION OF FOOD AND VOMIT (4) Pneumonia Code(s): J18.9 - PNEUMONIA, UNSPECIFIED ORGANISM Qualifiers: Pneumonia type: aspiration pneumonia Aspiration pneumonia type: unspecified Laterality: right Lung location: lower lobe of lung Qualified Code(s): J69.0 - Pneumonitis due to inhalation of food and vomit (5) Sepsis Code(s): A41.9 - SEPSIS, UNSPECIFIED ORGANISM (6) Anxiety and depression Code(s): F41.9 - ANXIETY DISORDER, UNSPECIFIED F32.9 - MAJOR DEPRESSIVE DISORDER, SINGLE EPISODE, UNSPECIFIED Assessment/Plan GIVEN CLINICAL SCENARIO I AGREE WITH PRESUMPTIVE DIAGNOSIS OF ASPIRATION PNEUMONIA H/O HTN/TIA/HPL/GOUT/ANXIETY-DEPRESSIVE DISORDER/GI BLD AWAIT OFFICIAL REPORTS CT BRAIN/CHEST AGREE WITH ANTIBIOTICS/SUPPLEMENTAL O2/BRONCHODILATORS MONITOR ON TELE/CULTURES PENDING WILL FOLLOW Micah MCCORMICK MD - ....Imaging Cat Scan: Report Reviewed, Image Reviewed Problem List - Problems (1) Acute respiratory failure with hypoxia Code(s): J96.01 - ACUTE RESPIRATORY FAILURE WITH HYPOXIA Assessment/Plan Problem List - Problems (1) Acute renal insufficiency Code(s): N28.9 - DISORDER OF KIDNEY AND URETER, UNSPECIFIED (2) Altered mental status Code(s): R41.82 - ALTERED MENTAL STATUS, UNSPECIFIED Qualifiers: Altered mental status type: transient alteration of awareness Qualified Code(s): R40.4 - Transient alteration of awareness (3) Aspiration pneumonia Code(s): J69.0 - PNEUMONITIS DUE TO INHALATION OF FOOD AND VOMIT (4) Pneumonia Code(s): J18.9 - PNEUMONIA, UNSPECIFIED ORGANISM Qualifiers: Pneumonia type: aspiration pneumonia Aspiration pneumonia type: unspecified Laterality: right Lung location: lower lobe of lung Qualified Code(s): J69.0 - Pneumonitis due to inhalation of food and vomit (5) Sepsis Code(s): A41.9 - SEPSIS, UNSPECIFIED ORGANISM (6) Anxiety and depression Code(s): F41.9 - ANXIETY DISORDER, UNSPECIFIED F32.9 - MAJOR DEPRESSIVE DISORDER, SINGLE EPISODE, UNSPECIFIED Assessment/Plan ACUTE HYPOXEMIC RESPIRATORY FAILURE LIKELY ASPIRATION PNEUMONIA HTN TIA HPL GOUT ANXIETY-DEPRESSIVE DISORDER GI BLD ANTIBIOTICS SUPPLEMENTAL O2 INHALED BRONCHODILATORS MONITOR ON TELE/CULTURES PENDING DR PRITCHARD
--- NOTE | 2016-07-14 11:10 | PN ---
Progress Note, Physician History of Present Illness: pulmonary awake,alert,comfortable,-resp distress - Current Medication List Current Medications: Active Medications Acetaminophen (Tylenol -) 650 mg PO Q4H PRN PRN Reason: FEVER OR PAIN Allopurinol (Zyloprim -) 300 mg PO DAILY [facility] Last Admin: 07/14/16 09:25 Dose: 300 mg Aspirin (Asa -) 81 mg PO DAILY [facility] Last Admin: 07/14/16 09:25 Dose: 81 mg Atorvastatin Calcium (Lipitor -) 20 mg PO HS [facility] Last Admin: 07/13/16 21:44 Dose: 20 mg Carvedilol (Coreg -) 25 mg PO BID [facility] Last Admin: 07/14/16 09:25 Dose: 25 mg Fluoxetine HCl (Prozac -) 40 mg PO DAILY [facility] Last Admin: 07/14/16 09:25 Dose: 40 mg Hydroxyurea (Hydrea -) 500 mg PO BID@0600,1800 [facility] Last Admin: 07/14/16 06:06 Dose: 500 mg Ertapenem 1 gm/ Sodium (Chloride) 50 mls @ 100 mls/hr IVPB DAILY [facility] Last Admin: 07/14/16 09:25 Dose: 100 mls/hr Potassium Chloride 10 meq/ (Dextrose/Sodium Chloride) 1,005 mls @ 125 mls/hr IVPB Q8H [facility] Last Admin: 07/14/16 08:55 Dose: Not Given - Objective Vital Signs: Vital Signs Temperature 98.1 F 07/14/16 09:00 Pulse Rate 65 07/14/16 09:00 Respiratory Rate 22 07/14/16 09:00 Blood Pressure 131/75 07/14/16 09:00 O2 Sat by Pulse Oximetry (%) 97 07/14/16 09:00 Constitutional: Yes: Well Nourished, Calm Eyes: Yes: WNL HENT: Yes: WNL Neck: Yes: WNL Cardiovascular: Yes: Regular Rate and Rhythm, S1, S2 Respiratory: Yes: Rales (BIBASILAR CRACKLES) Gastrointestinal: Yes: Normal Bowel Sounds, Soft Extremities: Yes: WNL Edema: No Labs: CBC, BMP 07/14/16 05:00 07/14/16 05:00 INR, PTT INR 1.12 (0.82-1.09) 07/12/16 20:15 Laboratory Tests 07/14/16 05:00 Lactic Acid 0.877 Problem List - Problems (1) Acute respiratory failure with hypoxia Code(s): J96.01 - ACUTE RESPIRATORY FAILURE WITH HYPOXIA (2) Acute respiratory failure with hypoxemia Code(s): J96.01 - ACUTE RESPIRATORY FAILURE WITH HYPOXIA Assessment/Plan Problem List - Problems (1) Acute renal insufficiency Code(s): N28.9 - DISORDER OF KIDNEY AND URETER, UNSPECIFIED (2) Altered mental status Code(s): R41.82 - ALTERED MENTAL STATUS, UNSPECIFIED Qualifiers: Altered mental status type: transient alteration of awareness Qualified Code(s): R40.4 - Transient alteration of awareness (3) Aspiration pneumonia Code(s): J69.0 - PNEUMONITIS DUE TO INHALATION OF FOOD AND VOMIT (4) Pneumonia Code(s): J18.9 - PNEUMONIA, UNSPECIFIED ORGANISM Qualifiers: Pneumonia type: aspiration pneumonia Aspiration pneumonia type: unspecified Laterality: right Lung location: lower lobe of lung Qualified Code(s): J69.0 - Pneumonitis due to inhalation of food and vomit (5) Sepsis Code(s): A41.9 - SEPSIS, UNSPECIFIED ORGANISM (6) Anxiety and depression Code(s): F41.9 - ANXIETY DISORDER, UNSPECIFIED F32.9 - MAJOR DEPRESSIVE DISORDER, SINGLE EPISODE, UNSPECIFIED Assessment/Plan ACUTE HYPOXEMIC RESPIRATORY FAILURE LIKELY ASPIRATION PNEUMONIA HTN TIA HPL GOUT ANXIETY-DEPRESSIVE DISORDER GI BLD PLAN ANTIBIOTICS SUPPLEMENTAL O2 INHALED BRONCHODILATORS F/U CHEST X-RAYS DR PRITCHARD
[2016-07-14] MEDS: ACETAMINOPHEN 325 MG TABLET (FP) PO PRN (12:02)
--- NOTE | 2016-07-14 12:18 | CONSULT ---
Admitting History and Physical - Primary Care Physician PCP: Jose De Leon - Admission History of Present Illness: - History of Present Illness History of Present Illness: 80 year old male,with a significant past medical history of right thalamic stroke two weeks ago, HTN, hypercholesterolemia, gout, anxiety, TIA, GI bleed, and depression, who presents to the emergency department with altered mental status for two days. The patients reports yesterday that the patient had an episode of choking where he turned blue. She reports the patient having respiratory distress and coughing during/after the choking episode. The notes that at around 10am today the patient was sleeping. His daughters later note that at around 4:00pm today they started to notice the patient was completely lethargic and had a lack of energy. It was also around this time where the daughter noticed the patient has had slurred/difficulty with speech since that was worse than his normal baseline. To note this patient was seen in [facility] two weeks ago on 2015 and MRI /MRA brain at that time was read as acute hemorrhagic infarct right peduncle and right thalamus. There are also chronic hypodensities bilaterally suggestive of chronic lacunar strokes. Per family they were not aware in the past ( before June 30, 2016) of patient having a stroke. Pt was recently d/c'd from [facility] on Dys ground/puree and nectar thick liquid.I contacted his , and pt's reported choking on diced chicken and diced carrots in bed. Turned blue and short of breath. The next day, his noted that he was disoriented. 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, TIA Cardiovascular: Yes: HTN, Hyperlipdemia Psych: Yes: Anxiety, Depression - Smoking History Smoking history: Never smoked Have you smoked in the past 12 months: No Aproximately how many cigarettes per day: 0 - Alcohol/Substance Use Hx Alcohol Use: No History - Admission Reason For Visit: ACUTE RENAL INSUFFICIENCY AMS PNEUMONI - Diagnostics CT Scan: Report Reviewed (RML consolidation) MRI: Pending - General Mental Status: Alert and Oriented (seems to vary?), Awake and Alert, Able to Follow Commands Attention: Distractible, Mild Impairment, Moderate Impairment Ability to Follow Directions: Good Head/Neck Control: Fair - Hearing Hearing: Normal Hearing Aide: No With Patient: No Speech Evaluation - Communication Primary Language: MONGOLIAN Communication: Yes: Dysarthria Oral Expression Ability: Yes: Mild Impairment, Moderate Impairment - Speech Production Dysarthria: Yes: Ataxic Able to Make Needs Known: Yes: Mildly Impaired, Moderately Impaired Intelligibility: Yes: Mildly Impaired, Moderately Impaired - Speech Characteristics Voice Loudness: Mildly Soft/Quiet Voice Pitch: Yes: Normal Voice Phonatory-based Quality: Yes: Normal Speech Pattern: Impaired Speech Clarity: < 50% Nasal Resonance: Normal Articulation: Yes: Imprecise Rate of Speech: Too Fast - Language/Auditory Comprehension Follows: Yes: 1 Stage Simple Commands Observation: Able to respond to yes/no queries: Yes, Yes/No Confusion: No, Comprehends Conversational Speech: Yes - Language/Verbal Expression Able to Communicate Wants and Needs: Yes: Mildly Impaired, Moderately Impaired Functional Communication Status: Yes: Mildly Impaired, Moderately Impaired - Memory/Perception FCI Memory: Yes: WNL Short Term Memory: Yes: WNL - Swallow Evaluation/Bedside Assessment Current Nutritional Intake: NPO Oral Secretions: Yes: WFL Dentition: Yes: Edentulous Facial Symmetry at Rest: Symmetrical Facial Symmetry on Retraction: Symmetrical Facial Movement: Controlled Pucker Lips: Normal Smile: Normal Lingual Movement: Normal Lingual Movement Characteristics: Normal Laryngeal Elevation: Impaired Laryngeal Movement: Able to Palpate, Labored,delay initiation Labial Seal: WFL Oral Prep Time: Increased A-P Transit: Impaired Timing of Swallow: Delayed Coughing/Throat Clear: No Change in Voice: No Recommendations - Speech Evaluation, Impression/Plan Impression: Recent MBS,06/30/16, with silent aspiration on thin liquid. Today, pt is awake, ataxic dysarthria. Delayed swallow onset. MRI results pending.RML cxonsolidation. Choked at [facility] on diced chicken, per pt's . - Dysphagia Impressions/Plan Swallowing Skills: Impaired Dysphagia Impressions: Ongoing Evaluation *Silent aspiration: cannot be R/O at bedside Recommendations: Modified Barium Swallow (repeat. r/o aspiration) - Recommendations Medication Administration: Crushed with applesauce
--- NOTE | 2016-07-14 12:18 | PN ---
Progress Note, Physician Chief Complaint: came back from MRIi In bed no distress - Current Medication List Current Medications: Active Medications Acetaminophen (Tylenol -) 650 mg PO Q4H PRN PRN Reason: FEVER OR PAIN Last Admin: 07/14/16 12:02 Dose: 650 mg Allopurinol (Zyloprim -) 300 mg PO DAILY [facility] Last Admin: 07/14/16 09:25 Dose: 300 mg Aspirin (Asa -) 81 mg PO DAILY [facility] Last Admin: 07/14/16 09:25 Dose: 81 mg Atorvastatin Calcium (Lipitor -) 20 mg PO HS [facility] Last Admin: 07/13/16 21:44 Dose: 20 mg Carvedilol (Coreg -) 25 mg PO BID [facility] Last Admin: 07/14/16 09:25 Dose: 25 mg Fluoxetine HCl (Prozac -) 40 mg PO DAILY [facility] Last Admin: 07/14/16 09:25 Dose: 40 mg Hydroxyurea (Hydrea -) 500 mg PO BID@0600,1800 [facility] Last Admin: 07/14/16 06:06 Dose: 500 mg Ertapenem 1 gm/ Sodium (Chloride) 50 mls @ 100 mls/hr IVPB DAILY [facility] Last Admin: 07/14/16 09:25 Dose: 100 mls/hr Potassium Chloride 10 meq/ (Dextrose/Sodium Chloride) 1,005 mls @ 125 mls/hr IVPB Q8H [facility] Last Admin: 07/14/16 08:55 Dose: Not Given - Objective Vital Signs: Vital Signs Temperature 98.1 F 07/14/16 09:00 Pulse Rate 65 07/14/16 09:00 Respiratory Rate 22 07/14/16 09:00 Blood Pressure 131/75 07/14/16 09:00 O2 Sat by Pulse Oximetry (%) 97 07/14/16 09:00 Constitutional: Yes: Calm Neck: Yes: Trachea Midline Cardiovascular: Yes: Regular Rate and Rhythm, S1, S2 Respiratory: Yes: CTA Bilaterally Gastrointestinal: Yes: Normal Bowel Sounds, Soft Edema: No Neurological: Yes: Alert, Confusion Labs: CBC, BMP 07/14/16 05:00 07/14/16 05:00 INR, PTT INR 1.12 (0.82-1.09) 07/12/16 20:15 Problem List - Problems (1) Altered mental status Assessment/Plan: possible sec to PNA vs intracranial pathology MRI done today report pendig iv abx wbc trending down so far cultures negative ct chest shows right mid lobe consolidation Code(s): R41.82 - ALTERED MENTAL STATUS, UNSPECIFIED Qualifiers: Altered mental status type: transient alteration of awareness Qualified Code(s): R40.4 - Transient alteration of awareness (2) Aspiration pneumonia Assessment/Plan: gurmeet angulo consult will order MBS if possible Code(s): J69.0 - PNEUMONITIS DUE TO INHALATION OF FOOD AND VOMIT (3) Depression Assessment/Plan: prozac Code(s): F32.9 - MAJOR DEPRESSIVE DISORDER, SINGLE EPISODE, UNSPECIFIED (4) Acute renal insufficiency Assessment/Plan: improved with hydration Code(s): N28.9 - DISORDER OF KIDNEY AND URETER, UNSPECIFIED (5) CVA (cerebral vascular accident) Assessment/Plan: PT eval neuro on board echo ordered Code(s): I63.9 - CEREBRAL INFARCTION, UNSPECIFIED
--- NOTE | 2016-07-14 13:16 | EKG ---
Test Reason : Blood Pressure : / mmHG Vent. Rate : 061 BPM Atrial Rate : 061 BPM P-R Int : 186 ms QRS Dur : 106 ms QT Int : 426 ms P-R-T Axes : 046 -32 099 degrees QTc Int : 428 ms NORMAL SINUS RHYTHM LEFT AXIS DEVIATION ABNORMAL QRS-T ANGLE, CONSIDER PRIMARY T WAVE ABNORMALITY ABNORMAL ECG WHEN COMPARED WITH ECG OF 13-JUL-2016 10:11, NO SIGNIFICANT CHANGE WAS FOUND Confirmed by BEATRICE ÁLVAREZ, RONDA ([id number]) on 07/14/2016 1:15:27 PM Referred By: Franky BARROW Overread By: RONDA BARRON MD
--- NOTE | 2016-07-14 14:37 | PN ---
Progress Note, Physician History of Present Illness: Awake but mildly confused Offers no complaints No acute distress Afebrile WBC improved- WNL Tolerating antibiotic without adverse rxn - Current Medication List Current Medications: Active Medications Acetaminophen (Tylenol -) 650 mg PO Q4H PRN PRN Reason: FEVER OR PAIN Last Admin: 07/14/16 12:02 Dose: 650 mg Allopurinol (Zyloprim -) 300 mg PO DAILY [facility] Last Admin: 07/14/16 09:25 Dose: 300 mg Aspirin (Asa -) 81 mg PO DAILY [facility] Last Admin: 07/14/16 09:25 Dose: 81 mg Atorvastatin Calcium (Lipitor -) 20 mg PO HS [facility] Last Admin: 07/13/16 21:44 Dose: 20 mg Carvedilol (Coreg -) 25 mg PO BID [facility] Last Admin: 07/14/16 09:25 Dose: 25 mg Fluoxetine HCl (Prozac -) 40 mg PO DAILY [facility] Last Admin: 07/14/16 09:25 Dose: 40 mg Hydroxyurea (Hydrea -) 500 mg PO BID@0600,1800 [facility] Last Admin: 07/14/16 06:06 Dose: 500 mg Ertapenem 1 gm/ Sodium (Chloride) 50 mls @ 100 mls/hr IVPB DAILY [facility] Last Admin: 07/14/16 09:25 Dose: 100 mls/hr Potassium Chloride 10 meq/ (Dextrose/Sodium Chloride) 1,005 mls @ 125 mls/hr IVPB Q8H [facility] Last Admin: 07/14/16 08:55 Dose: Not Given - Objective Vital Signs: Vital Signs Temperature 98.1 F 07/14/16 09:00 Pulse Rate 65 07/14/16 09:00 Respiratory Rate 22 07/14/16 09:00 Blood Pressure 131/75 07/14/16 09:00 O2 Sat by Pulse Oximetry (%) 97 07/14/16 09:00 Constitutional: Yes: No Distress Eyes: Yes: Conjunctiva Clear Cardiovascular: Yes: Regular Rate and Rhythm, S1, S2 Respiratory: Yes: CTA Bilaterally Gastrointestinal: Yes: Normal Bowel Sounds, Soft, Abdomen, Obese. No: Tenderness Edema: No Labs: CBC, BMP 07/14/16 05:00 07/14/16 05:00 INR, PTT INR 1.12 (0.82-1.09) 07/12/16 20:15 Assessment/Plan Probable aspiration RML pneumonia S/P CVA Possible toxic-metabolic encephalopathy PCN allergy Await c/s Continue empiric ertapenem
[2016-07-14] MEDS: ATORVASTATIN CA 20 MG TABLET (FP) PO SCH (22:52)
[2016-07-15] MEDS: POTASSIUM CHLORIDE 10 MEQ in DEXTROSE 5%-NORMAL SALINE 1,000 ML IVPB SCH ×2 (05:30→10:16)
[2016-07-15 07:26] LABS: BASOPHIL 1.8 % (0-2.0); EOSINOPHIL 8.1 % (0-4.5); MCH 31.7 pg (25.7-33.7); MCHC 33.4 g/dl (32.0-35.9); MEAN CELL VOLUME 94.9 fl (80-96); MEAN PLT VOLUME 8.2 fl (7.5-11.1); NEUTROPHILS 52.4 % (42.8-82.8); PLATELET COUNT 549 K/MM3 (134-434); RDW 14.1 % (11.9-15.9)
[2016-07-15] MEDS: HYDROXYUREA 500 MG CAPSULE PO SCH ×2 (07:27→17:48)
[2016-07-15 08:04] LABS: ALBUMIN 2.8 g/dl (3.4-5.0); BILIRUBIN,TOTAL 0.6 mg/dL (0.2-1.0); CALCIUM 8.5 mg/dL (8.5-10.1); CREATININE 1.3 mg/dL (0.7-1.3); TOT PROT 6.4 g/dl (6.4-8.2)
[2016-07-15] MEDS: ALLOPURINOL 300 MG TABLET (FP) PO SCH (10:16)
[2016-07-15] MEDS: CARVEDILOL 25 MG TABLET (FP) PO SCH ×2 (10:16→22:08)
[2016-07-15] MEDS: ASPIRIN 81 MG CHEWABLE TABLETS PO SCH (10:16)
[2016-07-15] MEDS: FLUoxetine HCL 20 MG CAPSULE (FP) PO SCH (10:16)
--- NOTE | 2016-07-15 12:15 | PN ---
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 Reviewed with nursing. Selected Entries 07/12/16 07/13/16 07/13/16 19:59 01:41 06:00 Breakfast Lunch Supper Temperature 99.8 F H 97.4 F L 97.8 F 07/13/16 07/13/16 07/13/16 08:11 15:00 17:00 Breakfast Lunch Supper Temperature 98.2 F 98.3 F 97.8 F 07/14/16 07/14/16 07/14/16 02:00 06:00 09:00 Breakfast NPO Lunch Supper Temperature 98.0 F 97.8 F 98.1 F 07/14/16 07/14/16 07/15/16 12:31 19:35 02:00 Breakfast NPO Lunch NPO Supper NPO Temperature 97.4 F L 07/15/16 08:38 Breakfast Lunch Supper Temperature 98.7 F MRI noted-acute cva periventricular region.
[2016-07-15] MEDS ORDERED: DEXTROSE 5%-0.45% SALINE 1,000 ML IV SCH (12:30)
--- NOTE | 2016-07-15 12:31 | PN ---
Progress Note, Physician Chief Complaint: got back from EEG MRI noted acute non hemorhagic infarct in right periventricular region getting ECHO now afebrile normal wbc - Current Medication List Current Medications: Active Medications Acetaminophen (Tylenol -) 650 mg PO Q4H PRN PRN Reason: FEVER OR PAIN Last Admin: 07/14/16 12:02 Dose: 650 mg Allopurinol (Zyloprim -) 300 mg PO DAILY [facility] Last Admin: 07/15/16 10:16 Dose: 300 mg Aspirin (Asa -) 81 mg PO DAILY [facility] Last Admin: 07/15/16 10:16 Dose: 81 mg Atorvastatin Calcium (Lipitor -) 20 mg PO HS [facility] Last Admin: 07/14/16 22:52 Dose: 20 mg Carvedilol (Coreg -) 25 mg PO BID [facility] Last Admin: 07/15/16 10:16 Dose: 25 mg Fluoxetine HCl (Prozac -) 40 mg PO DAILY [facility] Last Admin: 07/15/16 10:16 Dose: 40 mg Hydroxyurea (Hydrea -) 500 mg PO BID@0600,1800 [facility] Last Admin: 07/15/16 07:27 Dose: 500 mg Ertapenem 1 gm/ Sodium (Chloride) 50 mls @ 100 mls/hr IVPB DAILY [facility] Last Admin: 07/14/16 09:25 Dose: 100 mls/hr Potassium Chloride 10 meq/ (Dextrose/Sodium Chloride) 1,005 mls @ 125 mls/hr IVPB Q8H [facility] Last Admin: 07/15/16 10:16 Dose: 125 mls/hr - Objective Vital Signs: Vital Signs Temperature 98.7 F 07/15/16 08:38 Pulse Rate 68 07/15/16 08:38 Respiratory Rate 18 07/15/16 08:49 Blood Pressure 145/97 07/15/16 08:38 O2 Sat by Pulse Oximetry (%) 96 07/15/16 08:49 Constitutional: Yes: Calm Neck: Yes: Trachea Midline Cardiovascular: Yes: Regular Rate and Rhythm, S1, S2 Respiratory: Yes: CTA Bilaterally Gastrointestinal: Yes: Normal Bowel Sounds, Soft Neurological: Yes: Alert, Oriented (to name) Labs: CBC, BMP 07/15/16 05:35 07/15/16 05:35 INR, PTT INR 1.12 (0.82-1.09) 07/12/16 20:15 Problem List - Problems (1) Altered mental status Assessment/Plan: possible sec to PNA vs intracranial pathology MRI done acute non hemorhagic infarct in right periventricular region iv abx per ID wbc trending down so far cultures negative ct chest shows right mid lobe consolidation - to get MBS tmw Code(s): R41.82 - ALTERED MENTAL STATUS, UNSPECIFIED Qualifiers: Altered mental status type: transient alteration of awareness Qualified Code(s): R40.4 - Transient alteration of awareness (2) Aspiration pneumonia Assessment/Plan: gurmeet angulo consult will order MBS if possible afebrle wbc now normal will change to po abx once MBS is done Code(s): J69.0 - PNEUMONITIS DUE TO INHALATION OF FOOD AND VOMIT (3) Depression Assessment/Plan: prozac Code(s): F32.9 - MAJOR DEPRESSIVE DISORDER, SINGLE EPISODE, UNSPECIFIED (4) Acute renal insufficiency Assessment/Plan: improved with hydration Code(s): N28.9 - DISORDER OF KIDNEY AND URETER, UNSPECIFIED (5) CVA (cerebral vascular accident) Assessment/Plan: PT eval neuro on board echo ordered- getting done now got eeg today MRI noted acute non hemorhagic infarct in right periventricular region on iv fluids right now till gets MBS Code(s): I63.9 - CEREBRAL INFARCTION, UNSPECIFIED
--- NOTE | 2016-07-15 12:34 | PN ---
Progress Note, Physician History of Present Illness: Awake, responsive No complaints No acute distress Afebrile WBC WNL Blood, urine c/s no growth - Current Medication List Current Medications: Active Medications Acetaminophen (Tylenol -) 650 mg PO Q4H PRN PRN Reason: FEVER OR PAIN Last Admin: 07/14/16 12:02 Dose: 650 mg Allopurinol (Zyloprim -) 300 mg PO DAILY [facility] Last Admin: 07/15/16 10:16 Dose: 300 mg Aspirin (Asa -) 81 mg PO DAILY [facility] Last Admin: 07/15/16 10:16 Dose: 81 mg Atorvastatin Calcium (Lipitor -) 20 mg PO HS [facility] Last Admin: 07/14/16 22:52 Dose: 20 mg Carvedilol (Coreg -) 25 mg PO BID [facility] Last Admin: 07/15/16 10:16 Dose: 25 mg Fluoxetine HCl (Prozac -) 40 mg PO DAILY [facility] Last Admin: 07/15/16 10:16 Dose: 40 mg Hydroxyurea (Hydrea -) 500 mg PO BID@0600,1800 [facility] Last Admin: 07/15/16 07:27 Dose: 500 mg Ertapenem 1 gm/ Sodium (Chloride) 50 mls @ 100 mls/hr IVPB DAILY [facility] Last Admin: 07/14/16 09:25 Dose: 100 mls/hr Dextrose/Sodium Chloride (D5-1/2ns -) 1,000 mls @ 75 mls/hr IV ASDIR [facility] - Objective Vital Signs: Vital Signs Temperature 98.7 F 07/15/16 08:38 Pulse Rate 68 07/15/16 08:38 Respiratory Rate 18 07/15/16 08:49 Blood Pressure 145/97 07/15/16 08:38 O2 Sat by Pulse Oximetry (%) 96 07/15/16 08:49 Constitutional: Yes: No Distress Eyes: Yes: Conjunctiva Clear Cardiovascular: Yes: Regular Rate and Rhythm, S1, S2 Respiratory: Yes: CTA Bilaterally Gastrointestinal: Yes: Normal Bowel Sounds, Soft. No: Tenderness Edema: No Labs: CBC, BMP 07/15/16 05:35 07/15/16 05:35 INR, PTT INR 1.12 (0.82-1.09) 07/12/16 20:15 Assessment/Plan Probable aspiration RML pneumonia S/P CVA Possible toxic-metabolic encephalopathy-improved PCN allergy Awaiting swallow evaluation- switch to po antibiotics Continue empiric ertapenem
[2016-07-15] MEDS ORDERED: PT OWN MED DRAWER 7, Y5N ONE (13:21)
[2016-07-15] MEDS: ERTAPENEM SODIUM 1 GM in SODIUM CHLORIDE 50 ML IVPB SCH (13:24)
--- NOTE | 2016-07-15 13:27 | PN ---
Progress Note (short form) - Note Progress Note: NAD on NC O2. Awake and responsive. No acute events overnight. Intake & Output 07/12/16 07/13/16 07/14/16 07/15/16 23:59 23:59 23:59 23:59 Intake Total 1125 675 Balance 1125 675 Weight 210 lb 210 lb Last Vital Signs Temp Pulse Resp BP Pulse Ox 98.7 F 68 18 145/97 96 07/15/16 08:38 07/15/16 08:38 07/15/16 08:49 07/15/16 08:38 07/15/16 08:49 Active Medications Acetaminophen (Tylenol -) 650 mg PO Q4H PRN PRN Reason: FEVER OR PAIN Last Admin: 07/14/16 12:02 Dose: 650 mg Allopurinol (Zyloprim -) 300 mg PO DAILY [facility] Last Admin: 07/15/16 10:16 Dose: 300 mg Aspirin (Asa -) 81 mg PO DAILY [facility] Last Admin: 07/15/16 10:16 Dose: 81 mg Atorvastatin Calcium (Lipitor -) 20 mg PO HS [facility] Last Admin: 07/14/16 22:52 Dose: 20 mg Carvedilol (Coreg -) 25 mg PO BID [facility] Last Admin: 07/15/16 10:16 Dose: 25 mg Fluoxetine HCl (Prozac -) 40 mg PO DAILY [facility] Last Admin: 07/15/16 10:16 Dose: 40 mg Hydroxyurea (Hydrea -) 500 mg PO BID@0600,1800 [facility] Last Admin: 07/15/16 07:27 Dose: 500 mg Ertapenem 1 gm/ Sodium (Chloride) 50 mls @ 100 mls/hr IVPB DAILY [facility] Last Admin: 07/15/16 13:24 Dose: 100 mls/hr Dextrose/Sodium Chloride (D5-1/2ns -) 1,000 mls @ 75 mls/hr IV ASDIR [facility] Last Admin: 07/15/16 13:24 Dose: 75 mls/hr Constitutional: Yes: NAD Eyes: Yes: WNL HENT: Yes: WNL Neck: Yes: WNL Cardiovascular: Yes: Regular Rate and Rhythm, S1, S2 Respiratory: Yes: Bibasilar rhonchi Gastrointestinal: Yes: Normal Bowel Sounds, Soft Extremities: Yes: WNL Edema: No Labs: Laboratory Results - last 24 hr 07/12/16 07/15/16 07/15/16 20:02 05:35 05:35 WBC 7.0 RBC 4.04 Hgb 12.8 Hct 38.3 MCV 94.9 MCHC 33.4 RDW 14.1 Plt Count 549 H MPV 8.2 Neutrophils % 52.4 Lymphocytes % 25.0 D Monocytes % 12.7 H Eosinophils % 8.1 H Basophils % 1.8 Sodium 144 Potassium 4.8 Chloride 108 H Carbon Dioxide 30 Anion Gap 6 L BUN 21 H Creatinine 1.3 Creat Clearance w eGFR 53.39 POC Glucometer 119.79404 Random Glucose 79 Calcium 8.5 Total Bilirubin 0.6 AST 24 ALT 21 Alkaline Phosphatase 61 Total Protein 6.4 Albumin 2.8 L Problem List - Problems (1) Acute respiratory failure with hypoxia Code(s): J96.01 - ACUTE RESPIRATORY FAILURE WITH HYPOXIA (2) Acute renal insufficiency Code(s): N28.9 - DISORDER OF KIDNEY AND URETER, UNSPECIFIED (3) Altered mental status Code(s): R41.82 - ALTERED MENTAL STATUS, UNSPECIFIED Qualifiers: Altered mental status type: transient alteration of awareness Qualified Code(s): R40.4 - Transient alteration of awareness (4) Aspiration pneumonia Code(s): J69.0 - PNEUMONITIS DUE TO INHALATION OF FOOD AND VOMIT (5) Pneumonia Code(s): J18.9 - PNEUMONIA, UNSPECIFIED ORGANISM Qualifiers: Pneumonia type: aspiration pneumonia Aspiration pneumonia type: unspecified Laterality: right Lung location: lower lobe of lung Qualified Code(s): J69.0 - Pneumonitis due to inhalation of food and vomit (6) Sepsis Code(s): A41.9 - SEPSIS, UNSPECIFIED ORGANISM (7) Anxiety and depression Code(s): F41.9 - ANXIETY DISORDER, UNSPECIFIED F32.9 - MAJOR DEPRESSIVE DISORDER, SINGLE EPISODE, UNSPECIFIED Assessment/Plan ACUTE HYPOXEMIC RESPIRATORY FAILURE LIKELY ASPIRATION PNEUMONIA HTN TIA HPL GOUT ANXIETY-DEPRESSIVE DISORDER GI BLEED PLAN ANTIBIOTICS PER ID SUPPLEMENTAL O2 INHALED BRONCHODILATORS ASPIRATION PRECAUTIONS Dr Brooks
--- NOTE | 2016-07-15 13:41 | PN ---
Progress Note, Physician History of Present Illness: pt out of room for testing medical chart reviewed. 80 yo admitted with acute respiratory failure and likely aspiration pneumonia. The initial neurological consultation noted. The patient was recently discharged following an acute ICH due to infarct in the right thalamus. Recent MRI (07/15/15) demonstrated acute lacunar infarct in the right teer-ventricular while matter, likely related to long standing SMD associated with HTN and DM. - Current Medication List Current Medications: Active Medications Acetaminophen (Tylenol -) 650 mg PO Q4H PRN PRN Reason: FEVER OR PAIN Last Admin: 07/14/16 12:02 Dose: 650 mg Allopurinol (Zyloprim -) 300 mg PO DAILY [facility] Last Admin: 07/15/16 10:16 Dose: 300 mg Aspirin (Asa -) 81 mg PO DAILY [facility] Last Admin: 07/15/16 10:16 Dose: 81 mg Atorvastatin Calcium (Lipitor -) 20 mg PO HS [facility] Last Admin: 07/14/16 22:52 Dose: 20 mg Carvedilol (Coreg -) 25 mg PO BID [facility] Last Admin: 07/15/16 10:16 Dose: 25 mg Fluoxetine HCl (Prozac -) 40 mg PO DAILY [facility] Last Admin: 07/15/16 10:16 Dose: 40 mg Hydroxyurea (Hydrea -) 500 mg PO BID@0600,1800 [facility] Last Admin: 07/15/16 07:27 Dose: 500 mg Ertapenem 1 gm/ Sodium (Chloride) 50 mls @ 100 mls/hr IVPB DAILY [facility] Last Admin: 07/15/16 13:24 Dose: 100 mls/hr Dextrose/Sodium Chloride (D5-1/2ns -) 1,000 mls @ 75 mls/hr IV ASDIR [facility] Last Admin: 07/15/16 13:24 Dose: 75 mls/hr - Objective Vital Signs: Vital Signs Temperature 98.7 F 07/15/16 08:38 Pulse Rate 68 07/15/16 08:38 Respiratory Rate 18 07/15/16 08:49 Blood Pressure 145/97 07/15/16 08:38 O2 Sat by Pulse Oximetry (%) 96 07/15/16 08:49 Labs: CBC, BMP 07/15/16 05:35 07/15/16 05:35 INR, PTT INR 1.12 (0.82-1.09) 07/12/16 20:15 Assessment/Plan 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
[2016-07-15] MEDS: ACETAMINOPHEN 325 MG TABLET (FP) PO PRN (14:48)
--- NOTE | 2016-07-15 20:46 | CONSULT ---
Consult - text type - Consultation Consultation Note: NEUROLOGY CONSULTATION is greatly appreciated: Dr. Mensah's coverage consultation is greatly appreciated. Events reviewed. Patient examined with his grandson at the bedside. This 80 yo RH m man with h/o HTN, Chol, gout and thrombocytosis had his first stroke more than 10 years ago with excellent recovery. Admitted here 2-3 weeks ago with Right thalamic CVA and left sided complaints. At [place] developed difficulty swallowing and "turned blue." CT of head (reviewed) showed moderate, diffuse atrophy and diffuse, extensive confluent microvascular changes in both cerebral hemisphere white matter. MRI of brain (reviewed shows the atrophy and white matter changes as well as 2 discrete R cerebellar infarcts, a subacute Lacunar infarct in the R el[place], and R pyramidal tract in the mesencephalon and subacute R thalamic and BG infarcts with minimal hemorrhagic conversion. Admission WBC was 14.3. Started on imepenum. Platelet count was 638 K. On ASA 81 mg. GOVIND: No bruits. Cor reg. NEURO: Dysarthric. Decreased gag but swallows sips H2O without difficulty. Full EOM's Min Left drift. Prominent Left (sensory) hemidystaxia. Sl increased reflexes on Left. Toes downgoing. extinguishes DSS on Left leg. IMP: Progressive posterior fossa ischemia suggesting vertebrobasilar insufficency. Quantitative/qualitative platelet dysfunction may be contributing. Suggest: MR Angio or CT Angio of brain. Att: vertebrobasilar circulation. Hematology consultation Re: Thrombocytosis and possible Rx. Would expand antiplatelet Rx or even consider anticoagulation depending on the MRA and heme opinion. PM&R consultation for directed PT Out of bed to chair. After swallowing study can be fed a soft diet seated OO Bed in chair and observed. With unusual Left sided sensory dystaxia Patient will require transfer to [place] to regain useful function. Thank you very much, Osmani Hernandez MD
[2016-07-15] MEDS: ATORVASTATIN CA 20 MG TABLET (FP) PO SCH (22:08)
[2016-07-16] MEDS: HYDROXYUREA 500 MG CAPSULE PO SCH ×2 (06:39→17:56)
[2016-07-16 07:26] LABS: BASOPHIL 3.1 % (0-2.0); EOSINOPHIL 9.4 % (0-4.5); MCH 31.4 pg (25.7-33.7); MCHC 33.1 g/dl (32.0-35.9); MEAN CELL VOLUME 94.9 fl (80-96); NEUTROPHILS 50.9 % (42.8-82.8); PLATELET COUNT 523 K/MM3 (134-434); RDW 14.2 % (11.9-15.9); WHITE BLOOD COUNT 6.1 K/mm3 (4.0-10.0)
[2016-07-16 08:11] LABS: CALCIUM 8.8 mg/dL (8.5-10.1)
[2016-07-16 08:17] LABS: BILIRUBIN,TOTAL 0.7 mg/dL (0.2-1.0); CREATININE 1.2 mg/dL (0.7-1.3); TOT PROT 6.6 g/dl (6.4-8.2)
[2016-07-16] MEDS ORDERED: PT OWN MED DRAWER 7, Y5N ONE ×2 (08:21→22:16)
--- NOTE | 2016-07-16 09:32 | PN ---
Progress Note, Physician - Current Medication List Current Medications: Active Medications Acetaminophen (Tylenol -) 650 mg PO Q4H PRN PRN Reason: FEVER OR PAIN Last Admin: 07/15/16 14:48 Dose: 650 mg Allopurinol (Zyloprim -) 300 mg PO DAILY [facility] Last Admin: 07/15/16 10:16 Dose: 300 mg Aspirin (Asa -) 81 mg PO DAILY [facility] Last Admin: 07/15/16 10:16 Dose: 81 mg Atorvastatin Calcium (Lipitor -) 20 mg PO HS [facility] Last Admin: 07/15/16 22:08 Dose: 20 mg Carvedilol (Coreg -) 25 mg PO BID [facility] Last Admin: 07/15/16 22:08 Dose: 25 mg Fluoxetine HCl (Prozac -) 40 mg PO DAILY [facility] Last Admin: 07/15/16 10:16 Dose: 40 mg Hydroxyurea (Hydrea -) 500 mg PO BID@0600,1800 [facility] Last Admin: 07/16/16 06:39 Dose: 500 mg Ertapenem 1 gm/ Sodium (Chloride) 50 mls @ 100 mls/hr IVPB DAILY [facility] Last Admin: 07/15/16 13:24 Dose: 100 mls/hr - Objective Vital Signs: Vital Signs Temperature 97.9 F 07/16/16 07:53 Pulse Rate 75 07/16/16 07:53 Respiratory Rate 20 07/16/16 07:53 Blood Pressure 147/93 07/16/16 07:53 O2 Sat by Pulse Oximetry (%) 95 07/15/16 21:00 Labs: CBC, BMP 07/16/16 05:35 07/16/16 05:35 INR, PTT INR 1.12 (0.82-1.09) 07/12/16 20:15 Problem List - Problems (1) Sepsis Code(s): A41.9 - SEPSIS, UNSPECIFIED ORGANISM (2) Acute renal insufficiency Code(s): N28.9 - DISORDER OF KIDNEY AND URETER, UNSPECIFIED (3) Altered mental status Code(s): R41.82 - ALTERED MENTAL STATUS, UNSPECIFIED Qualifiers: Altered mental status type: transient alteration of awareness Qualified Code(s): R40.4 - Transient alteration of awareness (4) Pneumonia Code(s): J18.9 - PNEUMONIA, UNSPECIFIED ORGANISM Qualifiers: Pneumonia type: aspiration pneumonia Aspiration pneumonia type: unspecified Laterality: right Lung location: lower lobe of lung Qualified Code(s): J69.0 - Pneumonitis due to inhalation of food and vomit (5) Anxiety and depression Code(s): F41.9 - ANXIETY DISORDER, UNSPECIFIED F32.9 - MAJOR DEPRESSIVE DISORDER, SINGLE EPISODE, UNSPECIFIED (6) DVT prophylaxis Code(s): [id number] - (7) Thrombocytosis Code(s): D47.3 - ESSENTIAL (HEMORRHAGIC) THROMBOCYTHEMIA (8) CVA (cerebral vascular accident) Code(s): I63.9 - CEREBRAL INFARCTION, UNSPECIFIED Assessment/Plan - Problems (1) Altered mental status Assessment/Plan: possible sec to PNA vs intracranial pathology MRI done acute non hemorrhagic infarct in right periventricular region iv abx per ID wbc trending down so far cultures negative ct chest shows right mid lobe consolidation - to get MBS Code(s): R41.82 - ALTERED MENTAL STATUS, UNSPECIFIED Qualifiers: Altered mental status type: transient alteration of awareness Qualified Code(s): R40.4 - Transient alteration of awareness (2) Aspiration pneumonia Assessment/Plan: gurmeet angulo consult will order MBS if possible afebrle wbc now normal will change to po abx once MBS is done Code(s): J69.0 - PNEUMONITIS DUE TO INHALATION OF FOOD AND VOMIT (3) Depression Assessment/Plan: prozac add buspar for anxiety Code(s): F32.9 - MAJOR DEPRESSIVE DISORDER, SINGLE EPISODE, UNSPECIFIED (4) Acute renal insufficiency Assessment/Plan: improved with hydration Code(s): N28.9 - DISORDER OF KIDNEY AND URETER, UNSPECIFIED (5) CVA (cerebral vascular accident) Assessment/Plan: PT eval neuro on board echo noted got eeg today MRI noted acute non hemorhagic infarct in right periventricular region dc iv fluids Code(s): I63.9 - CEREBRAL INFARCTION, UNSPECIFIED
[2016-07-16] MEDS: FLUoxetine HCL 20 MG CAPSULE (FP) PO SCH (09:52)
[2016-07-16] MEDS: ASPIRIN 81 MG CHEWABLE TABLETS PO SCH (09:52)
[2016-07-16] MEDS: CARVEDILOL 25 MG TABLET (FP) PO SCH ×2 (09:52→23:00)
[2016-07-16] MEDS: ALLOPURINOL 300 MG TABLET (FP) PO SCH (09:53)
[2016-07-16] MEDS: ERTAPENEM SODIUM 1 GM in SODIUM CHLORIDE 50 ML IVPB SCH (12:26)
--- NOTE | 2016-07-16 12:45 | PN ---
Progress Note, Physician History of Present Illness: PULMONARY ALERT,NAD,-SOB,-COUGH,O2 SAT 98% RA - Current Medication List Current Medications: Active Medications Acetaminophen (Tylenol -) 650 mg PO Q4H PRN PRN Reason: FEVER OR PAIN Last Admin: 07/15/16 14:48 Dose: 650 mg Allopurinol (Zyloprim -) 300 mg PO DAILY [facility] Last Admin: 07/16/16 09:53 Dose: 300 mg Aspirin (Asa -) 81 mg PO DAILY [facility] Last Admin: 07/16/16 09:52 Dose: 81 mg Atorvastatin Calcium (Lipitor -) 20 mg PO HS [facility] Last Admin: 07/15/16 22:08 Dose: 20 mg Buspirone HCl (Buspar -) 5 mg PO TID [facility] Carvedilol (Coreg -) 25 mg PO BID [facility] Last Admin: 07/16/16 09:52 Dose: 25 mg Fluoxetine HCl (Prozac -) 40 mg PO DAILY [facility] Last Admin: 07/16/16 09:52 Dose: 40 mg Hydroxyurea (Hydrea -) 500 mg PO BID@0600,1800 [facility] Last Admin: 07/16/16 06:39 Dose: 500 mg Ertapenem 1 gm/ Sodium (Chloride) 50 mls @ 100 mls/hr IVPB DAILY [facility] Last Admin: 07/16/16 12:26 Dose: 100 mls/hr - Objective Vital Signs: Vital Signs Temperature 97.9 F 07/16/16 07:53 Pulse Rate 75 07/16/16 07:53 Respiratory Rate 20 07/16/16 07:53 Blood Pressure 147/93 07/16/16 07:53 O2 Sat by Pulse Oximetry (%) 95 07/15/16 21:00 Constitutional: Yes: Well Nourished, Calm Eyes: Yes: WNL HENT: Yes: WNL Neck: Yes: WNL Cardiovascular: Yes: Regular Rate and Rhythm, S1, S2 Respiratory: Yes: CTA Bilaterally Gastrointestinal: Yes: WNL Extremities: Yes: WNL Edema: No Labs: CBC, BMP 07/16/16 05:35 07/16/16 05:35 INR, PTT INR 1.12 (0.82-1.09) 07/12/16 20:15 Problem List - Problems (1) Acute respiratory failure with hypoxia Code(s): J96.01 - ACUTE RESPIRATORY FAILURE WITH HYPOXIA (2) Acute respiratory failure with hypoxemia Code(s): J96.01 - ACUTE RESPIRATORY FAILURE WITH HYPOXIA Assessment/Plan Problem List - Problems (1) Acute renal insufficiency Code(s): N28.9 - DISORDER OF KIDNEY AND URETER, UNSPECIFIED (2) Altered mental status Code(s): R41.82 - ALTERED MENTAL STATUS, UNSPECIFIED Qualifiers: Altered mental status type: transient alteration of awareness Qualified Code(s): R40.4 - Transient alteration of awareness (3) Aspiration pneumonia Code(s): J69.0 - PNEUMONITIS DUE TO INHALATION OF FOOD AND VOMIT (4) Pneumonia Code(s): J18.9 - PNEUMONIA, UNSPECIFIED ORGANISM Qualifiers: Pneumonia type: aspiration pneumonia Aspiration pneumonia type: unspecified Laterality: right Lung location: lower lobe of lung Qualified Code(s): J69.0 - Pneumonitis due to inhalation of food and vomit (5) Sepsis Code(s): A41.9 - SEPSIS, UNSPECIFIED ORGANISM (6) Anxiety and depression Code(s): F41.9 - ANXIETY DISORDER, UNSPECIFIED F32.9 - MAJOR DEPRESSIVE DISORDER, SINGLE EPISODE, UNSPECIFIED Assessment/Plan ACUTE HYPOXEMIC RESPIRATORY FAILURE IMPROVED LIKELY ASPIRATION PNEUMONIA HTN TIA HPL GOUT ANXIETY-DEPRESSIVE DISORDER GI BLD PLAN ANTIBIOTICS SUPPLEMENTAL O2 INHALED BRONCHODILATORS F/U CHEST X-RAYS DR PRITCHARD
[2016-07-16] MEDS: busPIRone HCL 5 MG TABLET PO SCH ×2 (14:05→23:00)
--- NOTE | 2016-07-16 16:29 | CONSULT ---
Consult - text type - Consultation Consultation Note: The patient is a 80 year old male, with a significant past medical history of HTN, hypercholesterolemia, gout, anxiety, TIA, GI bleed, and depression, who presents to the emergency department with altered mental status. The patients reports yesterday that the patient had an episode of choking where he turned blue. She reports the patient was having respiratory distress and coughing during/after the choking episode. He denies chest pain and shortness of breath. He denies fever, chills, headache and dizziness. He denies nausea, vomiting, diarrhea and constipation. He denies dysuria, frequency, urgency and hematuria. - History Source History Provided By: Patient, Family Member, Medical Record Limitations to Obtaining History: Clinical Condition - Past Medical History GIVING OFFICER: Yes: CVA, TIA Cardio/Vascular: Yes: HTN, Hyperlipdemia Psych: Yes: Anxiety, Depression dementia - Smoking History Smoking history: Never smoked - Social History Usual Living Arrangement: With Spouse Home Medications - Allergies Allergies/Adverse Reactions: Allergies Allergy/AdvReac Type Severity Reaction Status Date / Time Penicillins Allergy Mild Nausea Verified 06/29/16 14:57 - Home Medications Home Medications: Ambulatory Orders Allopurinol [Zyloprim -] 300 mg PO DAILY 09/24/14 Atorvastatin Ca [Lipitor] 20 mg PO HS 09/24/14 Acetaminophen [Tylenol .Regular Strength -] 650 mg PO Q4H PRN #0 tablet Amlodipine Besylate [Norvasc -] 10 mg PO DAILY tablet 07/11/16 Aspirin [ASA -] 81 mg PO DAILY #0 tab.chew 07/11/16 Carvedilol [Coreg -] 25 mg PO BID #0 tablet 07/11/16 Fluoxetine HCl Liquid [Prozac 20mg/5mL Oral Solution -] 40 mg PO DAILY #0 ml Hydroxyurea [Hydrea 500Mg Capsule -] 500 mg PO BID@0600,1800 #0 capsule Risperidone [Risperdal -] 1 mg PO BID #0 tablet 07/11/16 Valsartan [Diovan] 160 mg PO DAILY #0 tablet 07/11/16 Alprazolam [Xanax] 1 mg PO QID PRN 07/12/16 Current Medications Acetaminophen (Tylenol -) 650 mg PO Q4H PRN PRN Reason: FEVER OR PAIN Last Admin: 07/15/16 14:48 Dose: 650 mg Allopurinol (Zyloprim -) 300 mg PO DAILY [facility] Last Admin: 07/16/16 09:53 Dose: 300 mg Aspirin (Asa -) 81 mg PO DAILY [facility] Last Admin: 07/16/16 09:52 Dose: 81 mg Atorvastatin Calcium (Lipitor -) 20 mg PO HS [facility] Last Admin: 07/15/16 22:08 Dose: 20 mg Buspirone HCl (Buspar -) 5 mg PO TID [facility] Last Admin: 07/16/16 14:05 Dose: 5 mg Carvedilol (Coreg -) 25 mg PO BID [facility] Last Admin: 07/16/16 09:52 Dose: 25 mg Fluoxetine HCl (Prozac -) 40 mg PO DAILY [facility] Last Admin: 07/16/16 09:52 Dose: 40 mg Hydroxyurea (Hydrea -) 500 mg PO BID@0600,1800 [facility] Last Admin: 07/16/16 06:39 Dose: 500 mg Ertapenem 1 gm/ Sodium (Chloride) 50 mls @ 100 mls/hr IVPB DAILY [facility] Last Admin: 07/16/16 12:26 Dose: 100 mls/hr Family Disease History - Family Disease History Family History: Unable to Obtain Review of Systems Unable to obtain ROS, reason: UNABLE Physical Exam Vital Sings: Last Vital Signs Temp Pulse Resp BP Pulse Ox 97.6 F 74 20 146/94 95 07/16/16 14:43 07/16/16 14:43 07/16/16 14:43 07/16/16 14:43 07/15/16 21:00 Constitutional: Yes: Calm Eyes: Yes: EOM Intact HENT: Yes: Normocephalic Neck: Yes: Trachea Midline Cardiovascular: Yes: S1, S2 Respiratory: Yes: Diminished Gastrointestinal: Yes: Soft Abnormal Lab Results 07/16/16 07/16/16 05:35 05:35 Plt Count 523 H Monocytes % 11.4 H Eosinophils % 9.4 H Basophils % 3.1 H Anion Gap 6 L Albumin 3.0 L Imaging - Results Chest X-ray: Image Reviewed Cat Scan: Image Reviewed Problem List - Problems (1) Acute renal insufficiency Code(s): N28.9 - DISORDER OF KIDNEY AND URETER, UNSPECIFIED (2) Altered mental status Code(s): R41.82 - ALTERED MENTAL STATUS, UNSPECIFIED Qualifiers: Altered mental status type: transient alteration of awareness Qualified Code(s): R40.4 - Transient alteration of awareness (3) Aspiration pneumonia Code(s): J69.0 - PNEUMONITIS DUE TO INHALATION OF FOOD AND VOMIT (4) Pneumonia Code(s): J18.9 - PNEUMONIA, UNSPECIFIED ORGANISM Qualifiers: Pneumonia type: aspiration pneumonia Aspiration pneumonia type: unspecified Laterality: right Lung location: lower lobe of lung Qualified Code(s): J69.0 - Pneumonitis due to inhalation of food and vomit (5) Sepsis Code(s): A41.9 - SEPSIS, UNSPECIFIED ORGANISM (6) Anxiety and depression Code(s): F41.9 - ANXIETY DISORDER, UNSPECIFIED F32.9 - MAJOR DEPRESSIVE DISORDER, SINGLE EPISODE, UNSPECIFIED Assessment/Plan 80 y/o patient with h/o HTN, hyperlipidemia, gout, anxiety, TIA, recent admission for lacunar infarcts with petechial hemorrhages, also recently diagnosed with myeloproliferative disorder. Was discharged to intermediate-- choked on food--sent in for aspiration pneumonia. Treated with broad spectrum antibiotics MRI shows subacute , resolving hemorrhagic infarct right thalamus/cerebral peduncles and now nonhemorrhagic infarct in rt. periventricular region HAs been on hydrea since 07/05 Platelt count trending down 523,000 WBC also trending down --will change hydrea to 500mg daily On ASA VWF activity >100% will discuss with neurology
--- NOTE | 2016-07-16 18:20 | PN ---
Progress Note, Physician History of Present Illness: Awake, alert Eating soft diet No c/o dyspnea/ cough No fever/ chills - Current Medication List Current Medications: Active Medications Acetaminophen (Tylenol -) 650 mg PO Q4H PRN PRN Reason: FEVER OR PAIN Last Admin: 07/15/16 14:48 Dose: 650 mg Allopurinol (Zyloprim -) 300 mg PO DAILY [facility] Last Admin: 07/16/16 09:53 Dose: 300 mg Aspirin (Asa -) 81 mg PO DAILY [facility] Last Admin: 07/16/16 09:52 Dose: 81 mg Atorvastatin Calcium (Lipitor -) 20 mg PO HS [facility] Last Admin: 07/15/16 22:08 Dose: 20 mg Buspirone HCl (Buspar -) 5 mg PO TID [facility] Last Admin: 07/16/16 14:05 Dose: 5 mg Carvedilol (Coreg -) 25 mg PO BID [facility] Last Admin: 07/16/16 09:52 Dose: 25 mg Fluoxetine HCl (Prozac -) 40 mg PO DAILY [facility] Last Admin: 07/16/16 09:52 Dose: 40 mg Hydroxyurea (Hydrea -) 500 mg PO BID@0600,1800 [facility] Last Admin: 07/16/16 17:56 Dose: 500 mg Ertapenem 1 gm/ Sodium (Chloride) 50 mls @ 100 mls/hr IVPB DAILY [facility] Last Admin: 07/16/16 12:26 Dose: 100 mls/hr - Objective Vital Signs: Vital Signs Temperature 97.6 F 07/16/16 14:43 Pulse Rate 74 07/16/16 14:43 Respiratory Rate 20 07/16/16 14:43 Blood Pressure 146/94 07/16/16 14:43 O2 Sat by Pulse Oximetry (%) 95 07/15/16 21:00 Constitutional: Yes: No Distress Eyes: Yes: Conjunctiva Clear Cardiovascular: Yes: Regular Rate and Rhythm, S1, S2 Respiratory: Yes: Diminished Gastrointestinal: Yes: Normal Bowel Sounds, Soft, Abdomen, Obese. No: Tenderness Edema: Yes Labs: CBC, BMP 07/16/16 05:35 07/16/16 05:35 INR, PTT INR 1.12 (0.82-1.09) 07/12/16 20:15 Assessment/Plan Probable aspiration RML pneumonia S/P CVA Possible toxic-metabolic encephalopathy-improved PCN allergy Substitute po antibiotic am
[2016-07-16] MEDS: ATORVASTATIN CA 20 MG TABLET (FP) PO SCH (23:00)
[2016-07-17] MEDS: HYDROXYUREA 500 MG CAPSULE PO SCH ×2 (06:48→17:36)
[2016-07-17] MEDS: busPIRone HCL 5 MG TABLET PO SCH ×3 (06:48→21:16)
[2016-07-17 07:30] LABS: BASOPHIL 1.2 % (0-2.0); EOSINOPHIL 8.6 % (0-4.5); MCH 31.7 pg (25.7-33.7); MCHC 33.9 g/dl (32.0-35.9); MEAN CELL VOLUME 93.4 fl (80-96); MEAN PLT VOLUME 8.3 fl (7.5-11.1); NEUTROPHILS 59.4 % (42.8-82.8); PLATELET COUNT 531 K/MM3 (134-434); RDW 14.3 % (11.9-15.9); WHITE BLOOD COUNT 6.3 K/mm3 (4.0-10.0)
--- NOTE | 2016-07-17 07:59 | PN ---
Progress Note, Physician History of Present Illness: more awake periods of agitation at night at bedside - Current Medication List Current Medications: Active Medications Acetaminophen (Tylenol -) 650 mg PO Q4H PRN PRN Reason: FEVER OR PAIN Last Admin: 07/15/16 14:48 Dose: 650 mg Allopurinol (Zyloprim -) 300 mg PO DAILY [facility] Last Admin: 07/16/16 09:53 Dose: 300 mg Aspirin (Asa -) 81 mg PO DAILY [facility] Last Admin: 07/16/16 09:52 Dose: 81 mg Atorvastatin Calcium (Lipitor -) 20 mg PO HS [facility] Last Admin: 07/16/16 23:00 Dose: 20 mg Buspirone HCl (Buspar -) 5 mg PO TID [facility] Last Admin: 07/17/16 06:48 Dose: 5 mg Carvedilol (Coreg -) 25 mg PO BID [facility] Last Admin: 07/16/16 23:00 Dose: 25 mg Fluoxetine HCl (Prozac -) 40 mg PO DAILY [facility] Last Admin: 07/16/16 09:52 Dose: 40 mg Hydroxyurea (Hydrea -) 500 mg PO BID@0600,1800 [facility] Last Admin: 07/17/16 06:48 Dose: 500 mg Ertapenem 1 gm/ Sodium (Chloride) 50 mls @ 100 mls/hr IVPB DAILY [facility] Last Admin: 07/16/16 12:26 Dose: 100 mls/hr - Objective Vital Signs: Vital Signs Temperature 98.0 F 07/17/16 07:36 Pulse Rate 70 07/17/16 07:36 Respiratory Rate 20 07/17/16 07:36 Blood Pressure 143/79 07/17/16 07:36 O2 Sat by Pulse Oximetry (%) 98 07/17/16 07:32 Cardiovascular: Yes: Regular Rate and Rhythm Respiratory: Yes: Regular, CTA Bilaterally Gastrointestinal: Yes: Normal Bowel Sounds, Soft Labs: CBC, BMP 07/17/16 05:35 INR, PTT INR 1.12 (0.82-1.09) 07/12/16 20:15 Problem List - Problems (1) Sepsis Assessment/Plan: IV ABX LACTIC ACID Laboratory Tests 07/14/16 05:00 Lactic Acid 0.877 ID ON BOARD HYDRATION Code(s): A41.9 - SEPSIS, UNSPECIFIED ORGANISM (2) Acute renal insufficiency Assessment/Plan: dc IVF MONITOR Code(s): N28.9 - DISORDER OF KIDNEY AND URETER, UNSPECIFIED (3) Altered mental status Assessment/Plan: MONITOR IMPROVED BUT NOW WITH AGITATION--TRIAL OF SERAQUEL HS NEURO NOTED Code(s): R41.82 - ALTERED MENTAL STATUS, UNSPECIFIED Qualifiers: Altered mental status type: transient alteration of awareness Qualified Code(s): R40.4 - Transient alteration of awareness (4) Pneumonia Assessment/Plan: IV ABX ID F/O--PO? MONITOR LACTIC ACID Code(s): J18.9 - PNEUMONIA, UNSPECIFIED ORGANISM Qualifiers: Pneumonia type: aspiration pneumonia Aspiration pneumonia type: unspecified Laterality: right Lung location: lower lobe of lung Qualified Code(s): J69.0 - Pneumonitis due to inhalation of food and vomit (5) Anxiety and depression Assessment/Plan: RESUME SSRI AND START BUSPAR HOLD RESPIRADOL MEDS DUE TO LETHARGY Code(s): F41.9 - ANXIETY DISORDER, UNSPECIFIED F32.9 - MAJOR DEPRESSIVE DISORDER, SINGLE EPISODE, UNSPECIFIED (6) DVT prophylaxis Assessment/Plan: SQ HEPARIN Code(s): PRT0677 - (7) Thrombocytosis Assessment/Plan: CONTINUE WIT MEDS HEM ON BOARD DOSE ADJUSTED Code(s): D47.3 - ESSENTIAL (HEMORRHAGIC) THROMBOCYTHEMIA (8) CVA (cerebral vascular accident) Assessment/Plan: MRI CT AND NEURO NOTED Code(s): I63.9 - CEREBRAL INFARCTION, UNSPECIFIED
[2016-07-17 08:03] LABS: ALBUMIN 3.1 g/dl (3.4-5.0); CREATININE 1.3 mg/dL (0.7-1.3)
[2016-07-17 08:05] LABS: BILIRUBIN,TOTAL 0.8 mg/dL (0.2-1.0); TOT PROT 6.8 g/dl (6.4-8.2)
[2016-07-17] MEDS: ALLOPURINOL 300 MG TABLET (FP) PO SCH (09:40)
[2016-07-17] MEDS: CARVEDILOL 25 MG TABLET (FP) PO SCH ×2 (09:40→21:15)
[2016-07-17] MEDS: FLUoxetine HCL 20 MG CAPSULE (FP) PO SCH (09:40)
[2016-07-17] MEDS: ERTAPENEM SODIUM 1 GM in SODIUM CHLORIDE 50 ML IVPB SCH (09:40)
[2016-07-17] MEDS: ASPIRIN 81 MG CHEWABLE TABLETS PO SCH (09:40)
--- NOTE | 2016-07-17 10:27 | PN ---
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 Selected Entries 07/16/16 07/16/16 07/17/16 07:53 20:09 02:00 Breakfast Supper NPO 75% Temperature 98.2 F 07/17/16 07/17/16 06:00 07:36 Breakfast 100% Supper Temperature 97.4 F L Laboratory Tests 07/17/16 05:35 WBC 6.3 Needs assistance with all meals due to impulsivity and aspiration risk. Pt with impaired insight and memory. Speech production skills vary significantly b/n sessions. Monitor for increasing congestion, fever, elevated WBC,cough, throat clearing. Continue speech/swallowing tx upon discharge.
--- NOTE | 2016-07-17 11:35 | PN ---
Progress Note, Physician History of Present Illness: Awake, responsive No complaints Denies dyspnea/ cough No c/o fever/chills - Current Medication List Current Medications: Active Medications Acetaminophen (Tylenol -) 650 mg PO Q4H PRN PRN Reason: FEVER OR PAIN Last Admin: 07/15/16 14:48 Dose: 650 mg Allopurinol (Zyloprim -) 300 mg PO DAILY [facility] Last Admin: 07/17/16 09:40 Dose: 300 mg Aspirin (Asa -) 81 mg PO DAILY [facility] Last Admin: 07/17/16 09:40 Dose: 81 mg Atorvastatin Calcium (Lipitor -) 20 mg PO HS [facility] Last Admin: 07/16/16 23:00 Dose: 20 mg Buspirone HCl (Buspar -) 5 mg PO TID [facility] Last Admin: 07/17/16 06:48 Dose: 5 mg Carvedilol (Coreg -) 25 mg PO BID [facility] Last Admin: 07/17/16 09:40 Dose: 25 mg Fluoxetine HCl (Prozac -) 40 mg PO DAILY [facility] Last Admin: 07/17/16 09:40 Dose: 40 mg Hydroxyurea (Hydrea -) 500 mg PO BID@0600,1800 [facility] Last Admin: 07/17/16 06:48 Dose: 500 mg Ertapenem 1 gm/ Sodium (Chloride) 50 mls @ 100 mls/hr IVPB DAILY [facility] Last Admin: 07/17/16 09:40 Dose: 100 mls/hr Quetiapine Fumarate (Seroquel -) 25 mg PO [facility] - Objective Vital Signs: Vital Signs Temperature 98.0 F 07/17/16 07:36 Pulse Rate 70 07/17/16 07:36 Respiratory Rate 20 07/17/16 07:36 Blood Pressure 143/79 07/17/16 07:36 O2 Sat by Pulse Oximetry (%) 98 07/17/16 07:32 Constitutional: Yes: No Distress Eyes: Yes: Conjunctiva Clear Cardiovascular: Yes: Regular Rate and Rhythm, S1, S2 Respiratory: Yes: Diminished Gastrointestinal: Yes: Normal Bowel Sounds, Soft. No: Tenderness Edema: No Labs: CBC, BMP 07/17/16 05:35 07/17/16 05:35 INR, PTT INR 1.12 (0.82-1.09) 07/12/16 20:15 Assessment/Plan Probable aspiration RML pneumonia S/P CVA Possible toxic-metabolic encephalopathy-improved PCN allergy Day # 6 ertapenem Substitute po levaquin 500mg qd x 4d
--- NOTE | 2016-07-17 15:10 | PN ---
Progress Note (short form) - Note Progress Note: Resting in NAD. No acute events overnight. Intake & Output 07/14/16 07/15/16 07/16/16 07/17/16 23:59 23:59 23:59 23:59 Intake Total 675 0 490 900 Balance 675 0 490 900 Last Vital Signs Temp Pulse Resp BP Pulse Ox 98 F 66 20 162/86 98 07/17/16 15:02 07/17/16 15:02 07/17/16 15:02 07/17/16 15:02 07/17/16 07:32 Active Medications Acetaminophen (Tylenol -) 650 mg PO Q4H PRN PRN Reason: FEVER OR PAIN Last Admin: 07/15/16 14:48 Dose: 650 mg Allopurinol (Zyloprim -) 300 mg PO DAILY [facility] Last Admin: 07/17/16 09:40 Dose: 300 mg Aspirin (Asa -) 81 mg PO DAILY [facility] Last Admin: 07/17/16 09:40 Dose: 81 mg Atorvastatin Calcium (Lipitor -) [address] [facility] Last Admin: 07/16/16 23:00 Dose: 20 mg Buspirone HCl (Buspar -) 5 mg PO TID [facility] Last Admin: 07/17/16 13:39 Dose: 5 mg Carvedilol (Coreg -) 25 mg PO BID [facility] Last Admin: 07/17/16 09:40 Dose: 25 mg Fluoxetine HCl (Prozac -) 40 mg PO DAILY [facility] Last Admin: 07/17/16 09:40 Dose: 40 mg Hydroxyurea (Hydrea -) 500 mg PO BID@0600,1800 [facility] Last Admin: 07/17/16 06:48 Dose: 500 mg Levofloxacin (Levaquin -) 500 mg PO DAILY@0600 [facility] Quetiapine Fumarate (Seroquel -) [address] [facility] Constitutional: Yes: NAD Eyes: Yes: WNL HENT: Yes: WNL Neck: Yes: WNL Cardiovascular: Yes: Regular Rate and Rhythm, S1, S2 Respiratory: Yes: scattered rhonchi, no wheeze Gastrointestinal: Yes: WNL Extremities: Yes: WNL Edema: No Labs: Laboratory Results - last 24 hr 07/17/16 07/17/16 05:35 05:35 WBC 6.3 RBC 4.33 Hgb 13.7 Hct 40.5 MCV 93.4 MCHC 33.9 RDW 14.3 Plt Count 531 H MPV 8.3 Neutrophils % 59.4 Lymphocytes % 20.0 D Monocytes % 10.8 H Eosinophils % 8.6 H Basophils % 1.2 Sodium 137 Potassium 4.5 Chloride 103 Carbon Dioxide 29 Anion Gap 5 L BUN 18 Creatinine 1.3 Creat Clearance w eGFR 53.39 Random Glucose 78 Calcium 9.0 Total Bilirubin 0.8 AST 39 H D ALT 27 Alkaline Phosphatase 69 Total Protein 6.8 Albumin 3.1 L Assessment/Plan Problem List - Problems (1) Acute renal insufficiency Code(s): N28.9 - DISORDER OF KIDNEY AND URETER, UNSPECIFIED (2) Altered mental status Code(s): R41.82 - ALTERED MENTAL STATUS, UNSPECIFIED Qualifiers: Altered mental status type: transient alteration of awareness Qualified Code(s): R40.4 - Transient alteration of awareness (3) Aspiration pneumonia Code(s): J69.0 - PNEUMONITIS DUE TO INHALATION OF FOOD AND VOMIT (4) Pneumonia Code(s): J18.9 - PNEUMONIA, UNSPECIFIED ORGANISM Qualifiers: Pneumonia type: aspiration pneumonia Aspiration pneumonia type: unspecified Laterality: right Lung location: lower lobe of lung Qualified Code(s): J69.0 - Pneumonitis due to inhalation of food and vomit (5) Sepsis Code(s): A41.9 - SEPSIS, UNSPECIFIED ORGANISM (6) Anxiety and depression Code(s): F41.9 - ANXIETY DISORDER, UNSPECIFIED F32.9 - MAJOR DEPRESSIVE DISORDER, SINGLE EPISODE, UNSPECIFIED Assessment/Plan ACUTE HYPOXEMIC RESPIRATORY FAILURE IMPROVED LIKELY ASPIRATION PNEUMONIA HTN TIA HPL GOUT ANXIETY-DEPRESSIVE DISORDER GI BLEED PLAN ANTIBIOTICS PER SUPPLEMENTAL O2 INHALED BRONCHODILATORS D/C PLANNING DR BARRERA
--- NOTE | 2016-07-17 20:28 | PN ---
Progress Note (short form) - Note Progress Note: Patient seen and examined No new c/o had insomnia Last Vital Signs Temp Pulse Resp BP Pulse Ox 98.0 F 71 20 160/80 96 07/17/16 22:00 07/17/16 22:00 07/17/16 22:00 07/17/16 22:00 07/17/16 21:00 HEENT: ARMANDO, EOM Intact Cor: RSR, No murmurs, No gallops Lungs: Clear to P&A Abd: Soft, Normal bowel sounds, No organomegaly Ext:No significant edema Skin: No rashes, Integument intact Abnormal Lab Results 07/17/16 07/17/16 05:35 05:35 Plt Count 531 H Monocytes % 10.8 H Eosinophils % 8.6 H Anion Gap 5 L AST 39 H D Albumin 3.1 L Current Medications Acetaminophen (Tylenol -) 650 mg PO Q4H PRN PRN Reason: FEVER OR PAIN Last Admin: 07/17/16 21:16 Dose: 650 mg Allopurinol (Zyloprim -) 300 mg PO DAILY [facility] Last Admin: 07/17/16 09:40 Dose: 300 mg Aspirin (Asa -) 81 mg PO DAILY [facility] Last Admin: 07/17/16 09:40 Dose: 81 mg Atorvastatin Calcium (Lipitor -) 20 mg PO HS [facility] Last Admin: 07/17/16 21:16 Dose: 20 mg Buspirone HCl (Buspar -) 5 mg PO TID [facility] Last Admin: 07/17/16 21:16 Dose: 5 mg Carvedilol (Coreg -) 25 mg PO BID [facility] Last Admin: 07/17/16 21:15 Dose: 25 mg Fluoxetine HCl (Prozac -) 40 mg PO DAILY [facility] Last Admin: 07/17/16 09:40 Dose: 40 mg Hydroxyurea (Hydrea -) 500 mg PO BID@0600,1800 [facility] Last Admin: 07/17/16 17:36 Dose: 500 mg Levofloxacin (Levaquin -) 500 mg PO DAILY@0600 [facility] Quetiapine Fumarate (Seroquel -) 25 mg PO HS [facility] Last Admin: 07/17/16 21:17 Dose: 25 mg A/P 80 y/o patient with h/o HTN, hyperlipidemia, gout, anxiety, TIA, recent admission for lacunar infarcts with petechial hemorrhages, also recently diagnosed with myeloproliferative disorder. Was discharged to long-term-- choked on food--sent in for aspiration pneumonia. Treated with broad spectrum antibiotics MRI shows subacute , resolving hemorrhagic infarct right thalamus/cerebral peduncles and new nonhemorrhagic infarct in rt. periventricular region HAs been on hydrea since 07/05 Platelt count still [id number]--ncba increase to 1500mg daily WBC trended down but stable/ monitor On ASA VWF activity >100% will discuss with neurology discussed with family at bed side
[2016-07-17] MEDS: ATORVASTATIN CA 20 MG TABLET (FP) PO SCH (21:16)
[2016-07-17] MEDS: ACETAMINOPHEN 325 MG TABLET (FP) PO PRN (21:16)
[2016-07-17] MEDS: QUEtiapine FUMARATE 25 MG TABLET (FP) PO SCH (21:17)
[2016-07-18] MEDS: LEVOFLOXACIN 500 MG TABLET (FP) PO SCH (07:58)
[2016-07-18] MEDS: busPIRone HCL 5 MG TABLET PO SCH ×3 (08:00→21:34)
[2016-07-18] MEDS: HYDROXYUREA 500 MG CAPSULE PO SCH ×2 (08:00→17:24)
[2016-07-18] MEDS ORDERED: PT OWN MED DRAWER 7, Y5N ONE (08:00)
--- NOTE | 2016-07-18 08:38 | CONS ---
DATE OF CONSULTATION: 07/17/2016 PHYSICAL MEDICINE REHABILITATION CONSULTATION HISTORY OF PRESENT ILLNESS: The patient is 80-year-old male with past medical history of TIA, gout, anxiety and hypertension, who was seen in rehabilitation evaluation after admission from the halfway facility. The patient evidently had been admitted 3 weeks ago, on June 29, and was found to have an acute CVA. The patient subsequently was stabilized and transferred to a halfway facility, where he developed respiratory distress and was readmitted after only a day or two in the halfway facility. The patient underwent evaluation, including an MRI/MRA, as well as a modified barium swallow. The patient is on a limited diet due to dysphagia, and has had 2 discrete right cerebellar infarcts, a subacute lacunar infarct in the right eldon and right thalamic region, as well as basal ganglia infarcts with minimal hemorrhagic conversion. Currently the patient feels fairly well. Blood work had elevation in WBCs on admission of 14.3, but currently 6.3. Hemoglobin is stable, currently 13.7. Platelet count slightly elevated at 531. INR 1.12 on admission. Recent chemistry: On admission, the patient had elevation in BUN 40, creatinine 2.2, which have improved. Current BUN 18 and creatinine 1.3. AST is slightly elevated at 39. Chemistry also showed low albumin at 3.1. The patient was evaluated by Physical Therapy. He has limited mobility due to poor control of his left upper and left lower extremities. When seen today, the patient is moderate assist of two for standing only, minimal assist for transfer supine to sit. The patient also noted to have dysarthria and gargled speech at times. The patient is now seen in rehabilitation evaluation. PAST MEDICAL AND SURGICAL HISTORY: Review of past medical and surgical history as above. History of hypertension, gout, thrombocytosis, multiple CVAs, including recent right thalamic. SOCIAL HISTORY: Lives with his in a private house. There are a few steps to get into the home, and then there is a stair lift inside the house. Premorbidly he was using a cane, but currently unable to ambulate, as above. REVIEW OF SYSTEMS: No headache. No lightheadedness or dizziness. No blurry vision or double vision noted. No nausea or vomiting. He does demonstrate difficulty swallowing as well as some speech abnormalities. Difficulty controlling the left upper and left lower extremity. No right-sided weakness. No chest pain or current shortness of breath. No dyspnea on exertion, bowel or bladder incontinence, fever or chills. No complaints of numbness or tingling in the upper or lower extremities. No real joint arthralgias or underlying osteoarthritis, but he has had problems with his knees and toes due to gout in the past. PHYSICAL EXAMINATION: General: The patient is seen lying in bed. He is awake and cooperative. HEENT: He is normocephalic and atraumatic. His extraocular muscles appear intact. His speech is dysarthric. Extremities: Without any calf tenderness or pitting edema. Neuromuscular: He is awake, alert, oriented x3. He has diminished gag reflex, otherwise 2 through 12 appear grossly intact. He has good motor power in the upper and lower extremities but poor control involving the left upper, with poor [id number] in the left upper extremity, normal [id number] in the right upper extremity. He also has difficulty doing zhzy-iq-rnaz on the left and has flailing movements involving his left lower extremity at times. He has diminished sensation in both lower extremities distally. Unable to stand or ambulate him at this point. No gross arthritic change in the upper or lower extremities. OVERALL IMPRESSION: 1. Deficits in mobility and activities of daily living. 2. Left-sided discoordination with history of cerebrovascular accident, with 2 discrete infarcts in the right cerebellum, as well as subacute lacunar infarct in the right eldon and basal ganglia and right thalamic infarct. 3. Dysphagia. 4. Thrombocytosis. 5. Status post leukocytosis. 6. Status post acute renal insufficiency, resolving. 7. Elevated risk for deep venous thrombosis. 8. History of hypertension. 9. History of gout. 10. History of cerebrovascular accident in the past, which he apparently recovered from quite well. PLAN AND SUGGESTIONS: 1. Continue physical therapy while inpatient. 2. Speech pathology followup. 3. Dysphagia: Pureed diet with single sips of nectar-thickened liquids. 4. DVT prophylaxis per Hematology/Oncology. 5. Skin precautions. Monitor sacrum and heels. 6. Monitor bowels. 7. The patient will need further inpatient rehabilitation for physical and occupational therapy, as well as speech therapy. Thank you for this consultation. KATHLEEN MUJICA M.D. [id number]
[2016-07-18 09:02] LABS: BASOPHIL 0.9 % (0-2.0); EOSINOPHIL 5.4 % (0-4.5); MCH 31.2 pg (25.7-33.7); MCHC 33.4 g/dl (32.0-35.9); MEAN CELL VOLUME 93.6 fl (80-96); MEAN PLT VOLUME 7.8 fl (7.5-11.1); NEUTROPHILS 74.1 % (42.8-82.8); PLATELET COUNT 478 K/MM3 (134-434); WHITE BLOOD COUNT 7.2 K/mm3 (4.0-10.0)
--- NOTE | 2016-07-18 09:20 | PN ---
Progress Note, Physician History of Present Illness: more awake periods of agitation at night at bedside VOMITED YESTERDAY --NONE SINCE THEN - Current Medication List Current Medications: Active Medications Acetaminophen (Tylenol -) 650 mg PO Q4H PRN PRN Reason: FEVER OR PAIN Last Admin: 07/17/16 21:16 Dose: 650 mg Allopurinol (Zyloprim -) 300 mg PO DAILY [facility] Last Admin: 07/17/16 09:40 Dose: 300 mg Aspirin (Asa -) 81 mg PO DAILY [facility] Last Admin: 07/17/16 09:40 Dose: 81 mg Atorvastatin Calcium (Lipitor -) 20 mg PO [facility] Last Admin: 07/17/16 21:16 Dose: 20 mg Buspirone HCl (Buspar -) 5 mg PO TID [facility] Last Admin: 07/18/16 08:00 Dose: 5 mg Carvedilol (Coreg -) 25 mg PO BID [facility] Last Admin: 07/17/16 21:15 Dose: 25 mg Fluoxetine HCl (Prozac -) 40 mg PO DAILY [facility] Last Admin: 07/17/16 09:40 Dose: 40 mg Hydroxyurea (Hydrea -) 500 mg PO BID@0600,1800 [facility] Last Admin: 07/18/16 08:00 Dose: 500 mg Levofloxacin (Levaquin -) 500 mg PO DAILY@0600 [facility] Last Admin: 07/18/16 07:58 Dose: 500 mg Pantoprazole Sodium (Protonix -) 40 mg PO DAILY [facility] Quetiapine Fumarate (Seroquel -) 25 mg PO [facility] Last Admin: 07/17/16 21:17 Dose: 25 mg - Objective Vital Signs: Vital Signs Temperature 98.3 F 07/18/16 07:41 Pulse Rate 68 07/18/16 07:41 Respiratory Rate 20 07/18/16 07:46 Blood Pressure 154/80 07/18/16 07:41 O2 Sat by Pulse Oximetry (%) 100 07/18/16 07:46 Cardiovascular: Yes: Regular Rate and Rhythm Respiratory: Yes: Regular, CTA Bilaterally Gastrointestinal: Yes: Normal Bowel Sounds, Soft. No: Tenderness Labs: CBC, BMP 07/18/16 08:40 INR, PTT INR 1.12 (0.82-1.09) 07/12/16 20:15 Problem List - Problems (1) Sepsis Code(s): A41.9 - SEPSIS, UNSPECIFIED ORGANISM (2) Acute renal insufficiency Code(s): N28.9 - DISORDER OF KIDNEY AND URETER, UNSPECIFIED (3) Altered mental status Code(s): R41.82 - ALTERED MENTAL STATUS, UNSPECIFIED Qualifiers: Altered mental status type: transient alteration of awareness Qualified Code(s): R40.4 - Transient alteration of awareness (4) Pneumonia Code(s): J18.9 - PNEUMONIA, UNSPECIFIED ORGANISM Qualifiers: Pneumonia type: aspiration pneumonia Aspiration pneumonia type: unspecified Laterality: right Lung location: lower lobe of lung Qualified Code(s): J69.0 - Pneumonitis due to inhalation of food and vomit (5) Anxiety and depression Code(s): F41.9 - ANXIETY DISORDER, UNSPECIFIED F32.9 - MAJOR DEPRESSIVE DISORDER, SINGLE EPISODE, UNSPECIFIED (6) DVT prophylaxis Code(s): MHX3998 - (7) Thrombocytosis Code(s): D47.3 - ESSENTIAL (HEMORRHAGIC) THROMBOCYTHEMIA (8) CVA (cerebral vascular accident) Code(s): I63.9 - CEREBRAL INFARCTION, UNSPECIFIED Assessment/Plan - Problems (1) Altered mental status Assessment/Plan: possible sec to PNA vs intracranial pathology MRI done acute non hemorrhagic infarct in right periventricular region iv abx per ID wbc trending down so far cultures negative ct chest shows right mid lobe consolidation - to get MBS Code(s): R41.82 - ALTERED MENTAL STATUS, UNSPECIFIED Qualifiers: Altered mental status type: transient alteration of awareness Qualified Code(s): R40.4 - Transient alteration of awareness (2) Aspiration pneumonia Assessment/Plan: gurmeet angulo consult MBS NOTED--DIET ORDERED afebrle wbc now normal changed to po abx Code(s): J69.0 - PNEUMONITIS DUE TO INHALATION OF FOOD AND VOMIT (3) Depression Assessment/Plan: prozac buspar 10 tid for anxiety seraquel for agitation Code(s): F32.9 - MAJOR DEPRESSIVE DISORDER, SINGLE EPISODE, UNSPECIFIED (4) Acute renal insufficiency Assessment/Plan: improved with hydration Code(s): N28.9 - DISORDER OF KIDNEY AND URETER, UNSPECIFIED (5) CVA (cerebral vascular accident) Assessment/Plan: PT eval neuro on board echo noted got eeg today MRI noted acute non hemorhagic infarct in right periventricular region dc iv fluids Code(s): I63.9 - CEREBRAL INFARCTION, UNSPECIFIED
[2016-07-18 09:24] LABS: ALBUMIN 3.1 g/dl (3.4-5.0); BILIRUBIN,TOTAL 0.7 mg/dL (0.2-1.0); CALCIUM 8.9 mg/dL (8.5-10.1); CREATININE 1.6 mg/dL (0.7-1.3); TOT PROT 6.7 g/dl (6.4-8.2)
[2016-07-18] MEDS: FLUoxetine HCL 20 MG CAPSULE (FP) PO SCH (09:46)
[2016-07-18] MEDS: ALLOPURINOL 300 MG TABLET (FP) PO SCH (09:47)
[2016-07-18] MEDS: CARVEDILOL 25 MG TABLET (FP) PO SCH ×2 (09:47→21:34)
[2016-07-18] MEDS: ASPIRIN 81 MG CHEWABLE TABLETS PO SCH (09:47)
[2016-07-18] MEDS: PANTOPRAZOLE 40 MG TABLET (FP) PO SCH (09:50)
--- NOTE | 2016-07-18 15:59 | PN ---
Progress Note, SENIOR CENTER MANAGER - Note Progress Note: 80 yo male seen bedside for follow up dysphagia eval. Pt is at risk for aspiration secondary to impulsively. multimedia programmer Adiee reported that pt had an incident of vomiting (07/17/16) and was placed on clear liquids. This a.m. pt was placed on puree and nectar thicken liquids. Lunch intake was 100%. Pt given po trials of puree, thin and thicken liquids with assistance revealed good acceptance, bolus formation and transport is adequate. Pharyngeal swallow appears timely at this time. Recommendation Continue puree and nectar thicken liquids as tolerated. Slow rate of intake secondary to vomiting and risk of aspiration. Crush meds in puddings puree. Monitor nutritional intake and pulmonary status. SENIOR CENTER MANAGER to follow up for diet tolerate and possible upgrade.
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
[2016-07-18] MEDS: ACETAMINOPHEN 325 MG TABLET (FP) PO PRN (21:34)
[2016-07-18] MEDS: QUEtiapine FUMARATE 25 MG TABLET (FP) PO SCH (21:34)
[2016-07-18] MEDS: ATORVASTATIN CA 20 MG TABLET (FP) PO SCH (21:34)
[2016-07-19] MEDS: METOCLOPRAMIDE HCL 10 MG TABLET (FP) PO SCH ×3 (06:09→17:02)
[2016-07-19] MEDS: LEVOFLOXACIN 500 MG TABLET (FP) PO SCH (06:09)
[2016-07-19] MEDS: busPIRone HCL 5 MG TABLET PO SCH ×3 (06:10→21:44)
[2016-07-19] MEDS: HYDROXYUREA 500 MG CAPSULE PO SCH ×2 (06:10→17:04)
[2016-07-19] MEDS ORDERED: METOCLOPRAMIDE HCL 10 MG TABLET (FP) PO SCH (07:00)
[2016-07-19] MEDS ORDERED: SODIUM CHLORIDE 500 ML IV STA (08:54)
--- NOTE | 2016-07-19 08:55 | PN ---
Progress Note, Physician Chief Complaint: SITTING UP IN BED EATING WITH NO DISTRESS FEELS A LITTLE BETTER - Current Medication List Current Medications: Active Medications Acetaminophen (Tylenol -) 650 mg PO Q4H PRN PRN Reason: FEVER OR PAIN Last Admin: 07/18/16 21:34 Dose: 650 mg Allopurinol (Zyloprim -) 300 mg PO DAILY [facility] Last Admin: 07/18/16 09:47 Dose: 300 mg Aspirin (Asa -) 81 mg PO DAILY [facility] Last Admin: 07/18/16 09:47 Dose: 81 mg Atorvastatin Calcium (Lipitor -) 20 mg PO HS [facility] Last Admin: 07/18/16 21:34 Dose: 20 mg Buspirone HCl (Buspar -) 10 mg PO TID [facility] Last Admin: 07/19/16 06:10 Dose: 10 mg Carvedilol (Coreg -) 25 mg PO BID [facility] Last Admin: 07/18/16 21:34 Dose: 25 mg Fluoxetine HCl (Prozac -) 40 mg PO DAILY [facility] Last Admin: 07/18/16 09:46 Dose: 40 mg Hydroxyurea (Hydrea -) 500 mg PO BID@0600,1800 [facility] Last Admin: 07/19/16 06:10 Dose: 500 mg Levofloxacin (Levaquin -) 500 mg PO DAILY@0600 [facility] Last Admin: 07/19/16 06:09 Dose: 500 mg Metoclopramide HCl (Reglan -) 5 mg PO TIDAC [facility] Last Admin: 07/19/16 06:09 Dose: 5 mg Pantoprazole Sodium (Protonix -) 40 mg PO DAILY [facility] Last Admin: 07/18/16 09:50 Dose: 40 mg Quetiapine Fumarate (Seroquel -) 25 mg PO [facility] Last Admin: 07/18/16 21:34 Dose: 25 mg - Objective Vital Signs: Vital Signs Temperature 97.9 F 07/19/16 06:00 Pulse Rate 65 07/19/16 06:00 Respiratory Rate 20 07/19/16 06:00 Blood Pressure 152/59 07/19/16 06:00 O2 Sat by Pulse Oximetry (%) 100 07/18/16 21:00 Cardiovascular: Yes: Regular Rate and Rhythm, S1, S2 Respiratory: Yes: CTA Bilaterally Gastrointestinal: Yes: Normal Bowel Sounds, Soft Edema: No Labs: CBC, BMP 07/18/16 08:40 07/18/16 08:40 INR, PTT INR 1.12 (0.82-1.09) 07/12/16 20:15 Problem List - Problems (1) Aspiration pneumonia Code(s): J69.0 - PNEUMONITIS DUE TO INHALATION OF FOOD AND VOMIT (2) CVA (cerebral vascular accident) Code(s): I63.9 - CEREBRAL INFARCTION, UNSPECIFIED (3) Acute renal insufficiency Code(s): N28.9 - DISORDER OF KIDNEY AND URETER, UNSPECIFIED Assessment/Plan (1) Altered mental status Assessment/Plan: possible sec to PNA vs intracranial pathology MRI done acute non hemorrhagic infarct in right periventricular region iv abx per ID wbc trending down so far cultures negative ct chest shows right mid lobe consolidation - to get MBS appreciate st -> can eat with modifications Code(s): R41.82 - ALTERED MENTAL STATUS, UNSPECIFIED Qualifiers: Altered mental status type: transient alteration of awareness Qualified Code(s): R40.4 - Transient alteration of awareness (2) Aspiration pneumonia Assessment/Plan: gurmeet angulo consult MBS NOTED--DIET ORDERED afebrle wbc now normal changed to po abx Code(s): J69.0 - PNEUMONITIS DUE TO INHALATION OF FOOD AND VOMIT (3) Depression Assessment/Plan: prozac buspar 10 tid for anxiety seraquel for agitation Code(s): F32.9 - MAJOR DEPRESSIVE DISORDER, SINGLE EPISODE, UNSPECIFIED (4) Acute renal insufficiency Assessment/Plan: improved with hydration cr inc to 1.6 -> ns 500 bolus Code(s): N28.9 - DISORDER OF KIDNEY AND URETER, UNSPECIFIED (5) CVA (cerebral vascular accident) Assessment/Plan: PT eval neuro on board echo noted got eeg today -> as per gi has gastroparesis MRI noted acute non hemorhagic infarct in right periventricular region dc iv fluids Code(s): I63.9 - CEREBRAL INFARCTION, UNSPECIFIED ADVERTISING PRODUCTION MANAGER FM
[2016-07-19] MEDS: FLUoxetine HCL 20 MG CAPSULE (FP) PO SCH (10:04)
[2016-07-19] MEDS: ALLOPURINOL 300 MG TABLET (FP) PO SCH (10:04)
[2016-07-19] MEDS: PANTOPRAZOLE 40 MG TABLET (FP) PO SCH (10:04)
[2016-07-19] MEDS: CARVEDILOL 25 MG TABLET (FP) PO SCH ×2 (10:04→21:44)
[2016-07-19] MEDS: ASPIRIN 81 MG CHEWABLE TABLETS PO SCH (10:04)
--- NOTE | 2016-07-19 11:06 | PN ---
Progress Note, CAN DRAGGER - Note Progress Note: Pt seen as a follow up for diet tolerance with recommendation for dysphagia puree and sips of nectar thicken liquids. Nutritional intake reveals pt is consuming better than 75% of the meal. Laura Kemp reported that pt is eating / drinking without s/s of aspiration at this time. Continue dysphagia puree and sips of nectar thicken liquids. Observe standard aspiration precautions. Crush meds in pudding or puree. Results given to laura Kemp verbally and to pcp via chart.
--- NOTE | 2016-07-19 12:11 | PN ---
Progress Note (short form) - Note Progress Note: Patient seen and examined Offers no complaints of chest pain, SOB, dyspnea, dysphagia, odynophagia, constipation, diarrhea Last Vital Signs Temp Pulse Resp BP Pulse Ox 98.1 F 64 20 135/80 100 07/19/16 10:00 07/19/16 10:00 07/19/16 10:00 07/19/16 10:00 07/19/16 10:00 HEENT: ARMANDO, EOM Intact Oropharynx: No thrush, No mucositis Cor: RSR, No murmurs, No gallops Lungs: scattered rhonchi Abd: Soft, Normal bowel sounds, No organomegaly Ext:No significant edema Skin: No rashes, Integument intact CBC, BMP 07/18/16 08:40 07/18/16 08:40 Current Medications Generic Name Dose Route Start Last Admin Trade Name Freq PRN Reason Stop Dose Admin Acetaminophen 650 mg 07/13/16 09:08 07/18/16 21:34 Tylenol - PO 650 mg Q4H PRN Administration FEVER OR PAIN Allopurinol 300 mg 07/13/16 10:00 07/19/16 10:04 Zyloprim - PO 300 mg DAILY [facility] Administration Aspirin 81 mg 07/13/16 10:00 07/19/16 10:04 Asa - PO 81 mg DAILY [facility] Administration Atorvastatin Calcium 20 mg 07/13/16 22:00 07/18/16 21:34 Lipitor - PO 20 mg HS [facility] Administration Buspirone HCl 10 mg 07/18/16 09:58 07/19/16 06:10 Buspar - PO 10 mg TID [facility] Administration Carvedilol 25 mg 07/13/16 10:00 07/19/16 10:04 Coreg - PO 25 mg BID [facility] Administration Fluoxetine HCl 40 mg 07/13/16 10:00 07/19/16 10:04 Prozac - PO 40 mg DAILY [facility] Administration Hydroxyurea 500 mg 07/13/16 18:00 07/19/16 06:10 Hydrea - PO 500 mg BID@0600,1800 [facility] Administration Levofloxacin 500 mg 07/18/16 06:00 07/19/16 06:09 Levaquin - PO 500 mg DAILY@0600 [facility] Administration Metoclopramide HCl 5 mg 07/19/16 07:00 07/19/16 11:54 Reglan - PO 5 mg TIDAC [facility] Administration Pantoprazole Sodium 40 mg 07/18/16 10:00 07/19/16 10:04 Protonix - PO 40 mg DAILY [facility] Administration Quetiapine Fumarate 25 mg 07/17/16 22:00 07/18/16 21:34 Seroquel - PO 25 mg HS [facility] Administration Impression: \Non hemorrhagic periventricular infarct MPD Aspiration Plan: Continuing on ASA and hydrea for MPD.
[2016-07-19] MEDS ORDERED: PT OWN MED DRAWER 7, Y5N ONE ×3 (17:23→20:47)
[2016-07-19] MEDS: ATORVASTATIN CA 20 MG TABLET (FP) PO SCH (21:44)
[2016-07-19] MEDS: QUEtiapine FUMARATE 25 MG TABLET (FP) PO SCH (21:44)
[2016-07-20] MEDS ORDERED: PT OWN MED DRAWER 7, Y5N ONE ×2 (05:43→22:35)
[2016-07-20 06:33] LABS: BASOPHIL 0.9 % (0-2.0); EOSINOPHIL 6.2 % (0-4.5); MCH 31.7 pg (25.7-33.7); MCHC 33.8 g/dl (32.0-35.9); MEAN CELL VOLUME 93.7 fl (80-96); MEAN PLT VOLUME 8.2 fl (7.5-11.1); NEUTROPHILS 55.6 % (42.8-82.8); PLATELET COUNT 417 K/MM3 (134-434); RDW 14.2 % (11.9-15.9); WHITE BLOOD COUNT 6.1 K/mm3 (4.0-10.0)
[2016-07-20] MEDS: busPIRone HCL 5 MG TABLET PO SCH ×3 (06:44→22:39)
[2016-07-20] MEDS: METOCLOPRAMIDE HCL 10 MG TABLET (FP) PO SCH ×3 (06:45→17:41)
[2016-07-20] MEDS: LEVOFLOXACIN 500 MG TABLET (FP) PO SCH (06:45)
[2016-07-20] MEDS: HYDROXYUREA 500 MG CAPSULE PO SCH ×2 (06:45→17:41)
[2016-07-20 07:01] LABS: ALBUMIN 3.1 g/dl (3.4-5.0); BILIRUBIN,TOTAL 0.6 mg/dL (0.2-1.0); CALCIUM 8.8 mg/dL (8.5-10.1); CREATININE 1.6 mg/dL (0.7-1.3); TOT PROT 6.8 g/dl (6.4-8.2)
[2016-07-20] MEDS: CARVEDILOL 25 MG TABLET (FP) PO SCH ×2 (09:50→22:38)
[2016-07-20] MEDS: PANTOPRAZOLE 40 MG TABLET (FP) PO SCH (09:50)
[2016-07-20] MEDS: ASPIRIN 81 MG CHEWABLE TABLETS PO SCH (09:50)
[2016-07-20] MEDS: FLUoxetine HCL 20 MG CAPSULE (FP) PO SCH (09:50)
[2016-07-20] MEDS: ALLOPURINOL 300 MG TABLET (FP) PO SCH (09:50)
--- NOTE | 2016-07-20 11:34 | PN ---
Progress Note, Physician - Current Medication List Current Medications: Active Medications Acetaminophen (Tylenol -) 650 mg PO Q4H PRN PRN Reason: FEVER OR PAIN Last Admin: 07/18/16 21:34 Dose: 650 mg Allopurinol (Zyloprim -) 300 mg PO DAILY [facility] Last Admin: 07/20/16 09:50 Dose: 300 mg Aspirin (Asa -) 81 mg PO DAILY [facility] Last Admin: 07/20/16 09:50 Dose: 81 mg Atorvastatin Calcium (Lipitor -) 20 mg PO HS [facility] Last Admin: 07/19/16 21:44 Dose: 20 mg Buspirone HCl (Buspar -) 10 mg PO TID [facility] Last Admin: 07/20/16 06:44 Dose: 10 mg Carvedilol (Coreg -) 25 mg PO BID [facility] Last Admin: 07/20/16 09:50 Dose: 25 mg Fluoxetine HCl (Prozac -) 40 mg PO DAILY [facility] Last Admin: 07/20/16 09:50 Dose: 40 mg Hydroxyurea (Hydrea -) 500 mg PO BID@0600,1800 [facility] Last Admin: 07/20/16 06:45 Dose: 500 mg Levofloxacin (Levaquin -) 500 mg PO DAILY@0600 [facility] Last Admin: 07/20/16 06:45 Dose: 500 mg Metoclopramide HCl (Reglan -) 5 mg PO TIDAC [facility] Last Admin: 07/20/16 06:45 Dose: 5 mg Pantoprazole Sodium (Protonix -) 40 mg PO DAILY [facility] Last Admin: 07/20/16 09:50 Dose: 40 mg Quetiapine Fumarate (Seroquel -) 25 mg PO [facility] Last Admin: 07/19/16 21:44 Dose: 25 mg - Objective Vital Signs: Vital Signs Temperature 98.2 F 07/20/16 10:00 Pulse Rate 67 07/20/16 10:00 Respiratory Rate 18 07/20/16 10:00 Blood Pressure 138/78 07/20/16 10:00 O2 Sat by Pulse Oximetry (%) 100 07/20/16 10:00 Cardiovascular: Yes: Regular Rate and Rhythm, S1, S2 Respiratory: Yes: CTA Bilaterally Gastrointestinal: Yes: Normal Bowel Sounds, Soft Edema: No Labs: CBC, BMP 07/20/16 05:50 07/20/16 05:50 INR, PTT INR 1.12 (0.82-1.09) 07/12/16 20:15 Problem List - Problems (1) Aspiration pneumonia Code(s): J69.0 - PNEUMONITIS DUE TO INHALATION OF FOOD AND VOMIT (2) CVA (cerebral vascular accident) Code(s): I63.9 - CEREBRAL INFARCTION, UNSPECIFIED (3) Acute renal insufficiency Code(s): N28.9 - DISORDER OF KIDNEY AND URETER, UNSPECIFIED Assessment/Plan (1) Altered mental status Assessment/Plan: MRI done acute non hemorrhagic infarct in right periventricular region cultures negative ct chest shows right mid lobe consolidation - to get MBS appreciate st -> can eat with modifications Code(s): R41.82 - ALTERED MENTAL STATUS, UNSPECIFIED Qualifiers: Altered mental status type: transient alteration of awareness Qualified Code(s): R40.4 - Transient alteration of awareness (2) Aspiration pneumonia Assessment/Plan: gurmeet angulo consult MBS NOTED--DIET ORDERED changed to po abx Code(s): J69.0 - PNEUMONITIS DUE TO INHALATION OF FOOD AND VOMIT (3) Depression Assessment/Plan: prozac buspar 10 tid for anxiety seraquel for agitation Code(s): F32.9 - MAJOR DEPRESSIVE DISORDER, SINGLE EPISODE, UNSPECIFIED (4) Acute renal insufficiency Assessment/Plan: improved with hydration cr inc to 1.6 no improved with ivf hydration -> renal consult Code(s): N28.9 - DISORDER OF KIDNEY AND URETER, UNSPECIFIED (5) CVA (cerebral vascular accident) Assessment/Plan: PT eval neuro on board echo noted as per gi has gastroparesis MRI noted acute non hemorhagic infarct in right periventricular region Code(s): I63.9 - CEREBRAL INFARCTION, UNSPECIFIED [facility]ANQUET STEWARD FM
--- NOTE | 2016-07-20 12:30 | CONSULT ---
Consult Consult Specialty:: Nephrology ( Drs. Akers/ James) Referred by:: Dr. Urbina Reason for Consultation:: Thank you for the consult referral. The patient is a 80 y/o male admitted with Acute change in mentation. Has a periventricular Ischemic stroke. Has h/o Thrombocytosis on Hydroxyurea, Gout, Hypertension, Coronary artery disease, Hyperlipidemia. On IV antibiotics for Aspiration Pneumonia. Has elevated BUN/ CR and hence the renal consult. Patient's ambulatory status is compromised. Mostly bed ridden. Started on PT. 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 Cardio/Vascular: Yes: HTN, Hyperlipdemia Psych: Yes: Anxiety, Depression - Alcohol/Substance Use Hx Alcohol Use: No - Smoking History Smoking history: Never smoked Have you smoked in the past 12 months: No Aproximately how many cigarettes per day: 0 - Social History Usual Living Arrangement: With Spouse Home Medications - Allergies Allergies/Adverse Reactions: Allergies Allergy/AdvReac Type Severity Reaction Status Date / Time Penicillins Allergy Mild Nausea Verified 06/29/16 14:57 - Home Medications Home Medications: Ambulatory Orders Allopurinol [Zyloprim -] 300 mg PO DAILY 09/24/14 Atorvastatin Ca [Lipitor] 20 mg PO HS 09/24/14 Acetaminophen [Tylenol .Regular Strength -] 650 mg PO Q4H PRN #0 tablet Amlodipine Besylate [Norvasc -] 10 mg PO DAILY tablet 07/11/16 Aspirin [ASA -] 81 mg PO DAILY #0 tab.chew 07/11/16 Carvedilol [Coreg -] 25 mg PO BID #0 tablet 07/11/16 Fluoxetine HCl Liquid [Prozac 20mg/5mL Oral Solution -] 40 mg PO DAILY #0 ml Hydroxyurea [Hydrea 500Mg Capsule -] 500 mg PO BID@0600,1800 #0 capsule Risperidone [Risperdal -] 1 mg PO BID #0 tablet 07/11/16 Valsartan [Diovan] 160 mg PO DAILY #0 tablet 07/11/16 Alprazolam [Xanax] 1 mg PO QID PRN 07/12/16 Family Disease History - Family Disease History Family History: Unremarkable Review of Systems - Review of Systems Constitutional: reports: Other (Can take only pureed diet) Eyes: reports: No Symptoms HENT: reports: Difficult Swallowing Neck: reports: No Symptoms Cardiovascular: reports: No Symptoms Respiratory: reports: No Symptoms Gastrointestinal: reports: Constipation, Dysphagia Genitourinary: reports: No Symptoms. denies: Hematuria, Incontinence, Urgency Musculoskeletal: reports: No Symptoms Physical Exam Vital Signs: Vital Signs Temperature 98.2 F 07/20/16 10:00 Pulse Rate 67 07/20/16 10:00 Respiratory Rate 18 07/20/16 10:00 Blood Pressure 138/78 07/20/16 10:00 O2 Sat by Pulse Oximetry (%) 100 07/20/16 10:00 Constitutional: Yes: Well Nourished, No Distress, Calm Eyes: Yes: WNL, Conjunctiva Clear, EOM Intact HENT: Yes: WNL, Atraumatic, Normocephalic Neck: Yes: WNL, Supple, Trachea Midline Respiratory: Yes: WNL, Regular, CTA Bilaterally, Diminished Gastrointestinal: Yes: WNL, Normal Bowel Sounds, Soft Renal/: No: CVA Tenderness - Left Musculoskeletal: Yes: Muscle Weakness (of the lower extremities). No: Joint Stiffness Neurological: Yes: Alert, Oriented, Aphasia (miimal) ...Motor Strength: LLE (reduced), RLE (reduced) Psychiatric: Yes: Alert, Oriented Labs: CBC, BMP 07/20/16 05:50 07/20/16 05:50 Problem List - Problems (1) Acute renal insufficiency Code(s): N28.9 - DISORDER OF KIDNEY AND URETER, UNSPECIFIED (2) Altered mental status Code(s): R41.82 - ALTERED MENTAL STATUS, UNSPECIFIED Qualifiers: Altered mental status type: transient alteration of awareness Qualified Code(s): R40.4 - Transient alteration of awareness (3) CVA (cerebral vascular accident) Code(s): I63.9 - CEREBRAL INFARCTION, UNSPECIFIED (4) Pneumonia Code(s): J18.9 - PNEUMONIA, UNSPECIFIED ORGANISM Qualifiers: Pneumonia type: aspiration pneumonia Aspiration pneumonia type: unspecified Laterality: right Lung location: lower lobe of lung Qualified Code(s): J69.0 - Pneumonitis due to inhalation of food and vomit (5) Anxiety Code(s): F41.9 - ANXIETY DISORDER, UNSPECIFIED (6) HTN (hypertension) Code(s): I10 - ESSENTIAL (PRIMARY) HYPERTENSION Qualifiers: Hypertension type: essential hypertension Qualified Code(s): I10 - Essential (primary) hypertension (7) Multiple lacunar infarcts Code(s): I63.9 - CEREBRAL INFARCTION, UNSPECIFIED Assessment/Plan Acute Renal failure... Most likely Hemodynamic in etiology, in this patient with multiple active medical problems. Renal Hypoperfusion may be a factor at this point. But need to r/o other possible etiologic events such as Bladder outlet syndromes , Neurogenic bladder etc. Will obtain Renal/ Pelvic Sonogram. Monitor the Renal functions closely with you. Avoid Nephrotoxins as much as possible. Thanks again. Will follow with you. Britt Akers MD
[2016-07-20] MEDS: ATORVASTATIN CA 20 MG TABLET (FP) PO SCH (22:38)
[2016-07-20] MEDS: QUEtiapine FUMARATE 25 MG TABLET (FP) PO SCH (22:38)
[2016-07-20] MEDS: ACETAMINOPHEN 325 MG TABLET (FP) PO PRN (22:39)
[2016-07-21] MEDS ORDERED: PT OWN MED DRAWER 7, Y5N ONE ×4 (05:44→20:58)
[2016-07-21] MEDS: busPIRone HCL 5 MG TABLET PO SCH ×3 (05:45→21:08)
[2016-07-21] MEDS: LEVOFLOXACIN 500 MG TABLET (FP) PO SCH (05:45)
[2016-07-21] MEDS: METOCLOPRAMIDE HCL 10 MG TABLET (FP) PO SCH ×3 (06:03→18:03)
[2016-07-21] MEDS: HYDROXYUREA 500 MG CAPSULE PO SCH (06:04)
[2016-07-21 06:52] LABS: BASOPHIL 3.1 % (0-2.0); EOSINOPHIL 3.6 % (0-4.5); MCH 30.6 pg (25.7-33.7); MCHC 32.6 g/dl (32.0-35.9); MEAN CELL VOLUME 93.8 fl (80-96); MEAN PLT VOLUME 8.5 fl (7.5-11.1); NEUTROPHILS 52.6 % (42.8-82.8); PLATELET COUNT 422 K/MM3 (134-434); RDW 14.2 % (11.9-15.9); WHITE BLOOD COUNT 4.8 K/mm3 (4.0-10.0)
[2016-07-21 07:34] LABS: ALBUMIN 3.1 g/dl (3.4-5.0); BILIRUBIN,TOTAL 0.6 mg/dL (0.2-1.0); CALCIUM 8.8 mg/dL (8.5-10.1); CREATININE 1.5 mg/dL (0.7-1.3); TOT PROT 6.6 g/dl (6.4-8.2); URIC ACID 4.5 mg/dL (2.6-7.2)
[2016-07-21] MEDS: FLUoxetine HCL 20 MG CAPSULE (FP) PO SCH (10:06)
[2016-07-21] MEDS: ALLOPURINOL 300 MG TABLET (FP) PO SCH (10:06)
[2016-07-21] MEDS: PANTOPRAZOLE 40 MG TABLET (FP) PO SCH (10:07)
[2016-07-21] MEDS: CARVEDILOL 25 MG TABLET (FP) PO SCH ×2 (10:07→21:08)
[2016-07-21] MEDS: ASPIRIN 81 MG CHEWABLE TABLETS PO SCH (10:07)
--- NOTE | 2016-07-21 11:35 | PN ---
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
--- NOTE | 2016-07-21 12:07 | PN ---
Progress Note, Physician Chief Complaint: patient seen and examined to get renal sono today - Current Medication List Current Medications: Active Medications Acetaminophen (Tylenol -) 650 mg PO Q4H PRN PRN Reason: FEVER OR PAIN Last Admin: 07/20/16 22:39 Dose: 650 mg Allopurinol (Zyloprim -) 300 mg PO DAILY [facility] Last Admin: 07/21/16 10:06 Dose: 300 mg Alprazolam (Xanax -) 0.5 mg PO BID PRN PRN Reason: ANXIETY Aspirin (Asa -) 81 mg PO DAILY [facility] Last Admin: 07/21/16 10:07 Dose: 81 mg Atorvastatin Calcium (Lipitor -) 20 mg PO [facility] Last Admin: 07/20/16 22:38 Dose: 20 mg Buspirone HCl (Buspar -) 10 mg PO TID [facility] Last Admin: 07/21/16 05:45 Dose: 10 mg Carvedilol (Coreg -) 25 mg PO BID [facility] Last Admin: 07/21/16 10:07 Dose: 25 mg Fluoxetine HCl (Prozac -) 40 mg PO DAILY [facility] Last Admin: 07/21/16 10:06 Dose: 40 mg Hydroxyurea (Hydrea -) 500 mg PO BID@0600,1800 [facility] Last Admin: 07/21/16 06:04 Dose: 500 mg Levofloxacin (Levaquin -) 500 mg PO DAILY@0600 [facility] Last Admin: 07/21/16 05:45 Dose: 500 mg Metoclopramide HCl (Reglan -) 5 mg PO TIDAC [facility] Last Admin: 07/21/16 06:03 Dose: 5 mg Pantoprazole Sodium (Protonix -) 40 mg PO DAILY [facility] Last Admin: 07/21/16 10:07 Dose: 40 mg Quetiapine Fumarate (Seroquel -) 25 mg PO HS [facility] Last Admin: 07/20/16 22:38 Dose: 25 mg - Objective Vital Signs: Vital Signs Temperature 98.1 F 07/21/16 06:00 Pulse Rate 79 07/21/16 06:00 Respiratory Rate 20 07/21/16 06:00 Blood Pressure 134/70 07/21/16 06:00 O2 Sat by Pulse Oximetry (%) 95 07/20/16 21:00 Constitutional: Yes: Calm Cardiovascular: Yes: Regular Rate and Rhythm, S1, S2 Respiratory: Yes: CTA Bilaterally Gastrointestinal: Yes: Normal Bowel Sounds, Soft Labs: CBC, BMP 07/21/16 06:05 07/21/16 06:05 INR, PTT INR 1.12 (0.82-1.09) 07/12/16 20:15 Problem List - Problems (1) Altered mental status Assessment/Plan: possible sec to PNA vs intracranial pathology MRI done acute non hemorhagic infarct in right periventricular region iv abx per ID wbc trending down so far cultures negative ct chest shows right mid lobe consolidation - got MBS Code(s): R41.82 - ALTERED MENTAL STATUS, UNSPECIFIED Qualifiers: Altered mental status type: transient alteration of awareness Qualified Code(s): R40.4 - Transient alteration of awareness (2) Aspiration pneumonia Assessment/Plan: po levaquin Code(s): J69.0 - PNEUMONITIS DUE TO INHALATION OF FOOD AND VOMIT (3) Depression Assessment/Plan: prozac Code(s): F32.9 - MAJOR DEPRESSIVE DISORDER, SINGLE EPISODE, UNSPECIFIED (4) Acute renal insufficiency Assessment/Plan: renal consult noted renal sono pednig Code(s): N28.9 - DISORDER OF KIDNEY AND URETER, UNSPECIFIED (5) CVA (cerebral vascular accident) Assessment/Plan: nneds STRfamily doesnot want Adira to transfer to another [facility] Code(s): I63.9 - CEREBRAL INFARCTION, UNSPECIFIED
--- NOTE | 2016-07-21 16:10 | PN ---
Progress Note (short form) - Note Progress Note: Patient seen and examined No new c/o had insomnia Last Vital Signs Temp Pulse Resp BP Pulse Ox 98.9 F 71 18 132/72 96 07/21/16 15:00 07/21/16 15:00 07/21/16 15:00 07/21/16 15:00 07/21/16 09:00 HEENT: ARMANDO, EOM Intact Cor: RSR, No murmurs, No gallops Lungs: Clear to P&A Abd: Soft, Normal bowel sounds, No organomegaly Ext:No significant edema Skin: No rashes, Integument intact Abnormal Lab Results 07/21/16 07/21/16 06:05 06:05 Monocytes % 12.4 H Basophils % 3.1 H D BUN 29 H Creatinine 1.5 H AST 39 H Albumin 3.1 L Current Medications Acetaminophen (Tylenol -) 650 mg PO Q4H PRN PRN Reason: FEVER OR PAIN Last Admin: 07/20/16 22:39 Dose: 650 mg Allopurinol (Zyloprim -) 300 mg PO DAILY [facility] Last Admin: 07/21/16 10:06 Dose: 300 mg Alprazolam (Xanax -) 0.5 mg PO BID PRN PRN Reason: ANXIETY Aspirin (Asa -) 81 mg PO DAILY [facility] Last Admin: 07/21/16 10:07 Dose: 81 mg Atorvastatin Calcium (Lipitor -) 20 mg PO HS [facility] Last Admin: 07/20/16 22:38 Dose: 20 mg Buspirone HCl (Buspar -) 10 mg PO TID [facility] Last Admin: 07/21/16 14:30 Dose: 10 mg Carvedilol (Coreg -) 25 mg PO BID [facility] Last Admin: 07/21/16 10:07 Dose: 25 mg Fluoxetine HCl (Prozac -) 40 mg PO DAILY [facility] Last Admin: 07/21/16 10:06 Dose: 40 mg Hydroxyurea (Hydrea -) 500 mg PO DAILY [facility] Levofloxacin (Levaquin -) 500 mg PO DAILY@0600 [facility] Last Admin: 07/21/16 05:45 Dose: 500 mg Metoclopramide HCl (Reglan -) 5 mg PO TIDAC [facility] Last Admin: 07/21/16 12:08 Dose: Not Given Pantoprazole Sodium (Protonix -) 40 mg PO DAILY [facility] Last Admin: 07/21/16 10:07 Dose: 40 mg Quetiapine Fumarate (Seroquel -) 25 mg PO HS [facility] Last Admin: 07/20/16 22:38 Dose: 25 mg A/P 80 y/o patient with h/o HTN, hyperlipidemia, gout, anxiety, TIA, recent admission for lacunar infarcts with petechial hemorrhages, also recently diagnosed with myeloproliferative disorder. Was discharged to [facility]-- choked on food--sent in for aspiration pneumonia. Treated with broad spectrum antibiotics MRI shows subacute , resolving hemorrhagic infarct right thalamus/cerebral peduncles and new nonhemorrhagic infarct in rt. periventricular region HAs been on hydrea since 07/05 Platelt count trending down WBC trended down On ASA VWF activity >100% will reduce hydrea to 500mg daily
--- NOTE | 2016-07-21 18:07 | PN ---
Progress Note (short form) - Note Progress Note: Renal Follow up for ANSELMO Pt seen and examined at the bedside family at the bedside as well awake and alert Vital Signs Temperature 98.9 F 07/21/16 15:00 Pulse Rate 71 07/21/16 15:00 Respiratory Rate 18 07/21/16 15:00 Blood Pressure 132/72 07/21/16 15:00 O2 Sat by Pulse Oximetry (%) 96 07/21/16 09:00 Intake & Output 07/18/16 07/19/16 07/20/16 07/21/16 23:59 23:59 23:59 23:59 Intake Total 20 620 320 Output Total 75 Balance -55 620 320 Gen: NAD CVS: RRR Lungs: CTA Abd: soft NT/ND Ext: No edema CBC, BMP 07/21/16 06:05 07/21/16 06:05 Current Medications Acetaminophen (Tylenol -) 650 mg PO Q4H PRN PRN Reason: FEVER OR PAIN Last Admin: 07/20/16 22:39 Dose: 650 mg Allopurinol (Zyloprim -) 300 mg PO DAILY [facility] Last Admin: 07/21/16 10:06 Dose: 300 mg Alprazolam (Xanax -) 0.5 mg PO BID PRN PRN Reason: ANXIETY Aspirin (Asa -) 81 mg PO DAILY [facility] Last Admin: 07/21/16 10:07 Dose: 81 mg Atorvastatin Calcium (Lipitor -) 20 mg PO HS [facility] Last Admin: 07/20/16 22:38 Dose: 20 mg Buspirone HCl (Buspar -) 10 mg PO TID [facility] Last Admin: 07/21/16 14:30 Dose: 10 mg Carvedilol (Coreg -) 25 mg PO BID [facility] Last Admin: 07/21/16 10:07 Dose: 25 mg Fluoxetine HCl (Prozac -) 40 mg PO DAILY [facility] Last Admin: 07/21/16 10:06 Dose: 40 mg Hydroxyurea (Hydrea -) 500 mg PO DAILY [facility] Levofloxacin (Levaquin -) 500 mg PO DAILY@0600 [facility] Last Admin: 07/21/16 05:45 Dose: 500 mg Metoclopramide HCl (Reglan -) 5 mg PO TIDAC [facility] Last Admin: 07/21/16 12:08 Dose: Not Given Pantoprazole Sodium (Protonix -) 40 mg PO DAILY [facility] Last Admin: 07/21/16 10:07 Dose: 40 mg Quetiapine Fumarate (Seroquel -) 25 mg PO HS [facility] Last Admin: 07/20/16 22:38 Dose: 25 mg A/P 80 year old gentleman with PMhx of HLD, Gout, Anxiety, TIA, GIB who presented with AMS and found to have acute ischemic CVA with ANSELMO. #Acute Kidney Injury secondary to pre-renal azotemia/Volume depletion/ hemodynamic changes Renal function w/o significant improvement Renal US w/o obstruction Ua w/o protein or sediment Start isotonic saline at 84cc per hour Trend BUN/Cr and electrolytes Lee Ramirez DO
[2016-07-21] MEDS: SODIUM CHLORIDE 1,000 ML IV SCH (18:56)
[2016-07-21 19:39] LABS: URINE APPEARANCE CLEAR; URINE BILIRUBIN NEGATIVE (NEGATIVE); URINE BLOOD NEGATIVE (NEGATIVE); URINE COLOR YELLOW; URINE GLUCOSE (UA) NEGATIVE (NEGATIVE); URINE KETONE NEGATIVE (NEGATIVE); URINE LEUK ESTERASE NEGATIVE (NEGATIVE); URINE NITRITE NEGATIVE (NEGATIVE); URINE UROBILINOGEN 2.0 E.U/dl E.U./dl (0.2-1.0)
[2016-07-21 19:47] LABS: URINE PROTEIN 1+ (NEGATIVE)
[2016-07-21 20:06] LABS: URINE MUCUS RARE; URINE RBC 1 /hpf (0-3); URINE WBC 1 /hpf (3-5)
[2016-07-21] MEDS: ATORVASTATIN CA 20 MG TABLET (FP) PO SCH (21:08)
[2016-07-21] MEDS: QUEtiapine FUMARATE 25 MG TABLET (FP) PO SCH (21:09)
[2016-07-21] MEDS: ALPRAZolam 0.25 MG TABLET PO PRN (22:47)
[2016-07-22] MEDS: busPIRone HCL 5 MG TABLET PO SCH ×3 (06:43→23:13)
[2016-07-22] MEDS: LEVOFLOXACIN 500 MG TABLET (FP) PO SCH (06:43)
[2016-07-22] MEDS: METOCLOPRAMIDE HCL 10 MG TABLET (FP) PO SCH ×3 (06:43→17:03)
[2016-07-22] MEDS: SODIUM CHLORIDE 1,000 ML IV SCH (06:48)
[2016-07-22] MEDS ORDERED: PT OWN MED DRAWER 7, Y5N ONE ×3 (07:01→20:57)
[2016-07-22 07:23] LABS: BASOPHIL 1.6 % (0-2.0); EOSINOPHIL 2.9 % (0-4.5); MCH 32.1 pg (25.7-33.7); MEAN CELL VOLUME 94.4 fl (80-96); MEAN PLT VOLUME 8.3 fl (7.5-11.1); PLATELET COUNT 351 K/MM3 (134-434); RDW 14.2 % (11.9-15.9)
[2016-07-22 07:46] LABS: CALCIUM 8.6 mg/dL (8.5-10.1); CREATININE 1.4 mg/dL (0.7-1.3); MAGNESIUM 1.9 mg/dL (1.8-2.4); PHOSPHOROUS 2.8 mg/dL (2.5-4.9)
[2016-07-22] MEDS: ALPRAZolam 0.25 MG TABLET PO PRN (08:55)
[2016-07-22] MEDS: CARVEDILOL 25 MG TABLET (FP) PO SCH ×2 (09:00→23:13)
[2016-07-22] MEDS: FLUoxetine HCL 20 MG CAPSULE (FP) PO SCH (09:00)
[2016-07-22] MEDS: ASPIRIN 81 MG CHEWABLE TABLETS PO SCH (09:01)
[2016-07-22] MEDS: ALLOPURINOL 300 MG TABLET (FP) PO SCH (09:01)
[2016-07-22] MEDS: HYDROXYUREA 500 MG CAPSULE PO SCH (09:01)
[2016-07-22] MEDS: PANTOPRAZOLE 40 MG TABLET (FP) PO SCH (09:01)
--- NOTE | 2016-07-22 13:05 | PN ---
Progress Note (short form) - Note Progress Note: Renal Follow up for ANSELMO Pt seen and examined at the bedside no acute complaints denies any sob, chest pain, abd pain, N/V/D on IVF Vital Signs Temperature 98.3 F 07/22/16 10:00 Pulse Rate 66 07/22/16 10:00 Respiratory Rate 18 07/22/16 10:00 Blood Pressure 142/86 07/22/16 10:00 O2 Sat by Pulse Oximetry (%) 96 07/22/16 09:00 Intake & Output 07/19/16 07/20/16 07/21/16 07/22/16 23:59 23:59 23:59 23:59 Intake Total 620 693 130 4159 Output Total 300 Balance 620 318 828 7217 Gen: NAD CVS: RRR Lungs: CTA Abd: soft NT/ND Ext: No edema CBC, BMP 07/22/16 06:00 07/22/16 06:00 Current Medications Acetaminophen (Tylenol -) 650 mg PO Q4H PRN PRN Reason: FEVER OR PAIN Last Admin: 07/20/16 22:39 Dose: 650 mg Allopurinol (Zyloprim -) 300 mg PO DAILY [facility] Last Admin: 07/22/16 09:01 Dose: 300 mg Alprazolam (Xanax -) 0.5 mg PO BID PRN PRN Reason: ANXIETY Last Admin: 07/22/16 08:55 Dose: 0.5 mg Aspirin (Asa -) 81 mg PO DAILY [facility] Last Admin: 07/22/16 09:01 Dose: 81 mg Atorvastatin Calcium (Lipitor -) 20 mg PO HS [facility] Last Admin: 07/21/16 21:08 Dose: 20 mg Buspirone HCl (Buspar -) 10 mg PO TID [facility] Last Admin: 07/22/16 13:00 Dose: 10 mg Carvedilol (Coreg -) 25 mg PO BID [facility] Last Admin: 07/22/16 09:00 Dose: 25 mg Fluoxetine HCl (Prozac -) 40 mg PO DAILY [facility] Last Admin: 07/22/16 09:00 Dose: 40 mg Hydroxyurea (Hydrea -) 500 mg PO DAILY [facility] Last Admin: 07/22/16 09:01 Dose: 500 mg Sodium Chloride (Normal Saline -) 1,000 mls @ 83 mls/hr IV ASDIR [facility] Last Admin: 07/22/16 06:48 Dose: 83 mls/hr Levofloxacin (Levaquin -) 500 mg PO DAILY@0600 [facility] Last Admin: 07/22/16 06:43 Dose: 500 mg Metoclopramide HCl (Reglan -) 5 mg PO TIDAC [facility] Last Admin: 07/22/16 12:56 Dose: 5 mg Pantoprazole Sodium (Protonix -) 40 mg PO DAILY [facility] Last Admin: 07/22/16 09:01 Dose: 40 mg Quetiapine Fumarate (Seroquel -) 25 mg PO HS [facility] Last Admin: 07/21/16 21:09 Dose: 25 mg A/P 80 year old gentleman with PMhx of HLD, Gout, Anxiety, TIA, GIB who presented with AMS and found to have acute ischemic CVA with ANSELMO. 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
--- NOTE | 2016-07-22 13:29 | DS ---
Physical Examination Vital Signs: Vital Signs Temperature 98.3 F 07/22/16 10:00 Pulse Rate 66 07/22/16 10:00 Respiratory Rate 18 07/22/16 10:00 Blood Pressure 142/86 07/22/16 10:00 O2 Sat by Pulse Oximetry (%) 96 07/22/16 09:00 Labs: CBC, BMP 07/22/16 06:00 07/22/16 06:00 Discharge Summary Reason For Visit: ACUTE RENAL INSUFFICIENCY AMS PNEUMONI Current Active Problems Acute renal insufficiency (Acute) Acute respiratory failure with hypoxemia (Acute) Acute respiratory failure with hypoxia (Acute) Altered mental status (Acute) Aphasia as late effect of cerebrovascular accident (Acute) Aspiration pneumonia (Acute) CVA (cerebral vascular accident) (Acute) Confusion state (Acute) Delirium due to another medical condition (Acute) Dementia (Acute) GERD (gastroesophageal reflux disease) (Acute) Pneumonia (Acute) Sepsis (Acute) Hospital Course: 80 year old male with a significant past medical history of HTN, hypercholesterolemia, gout, anxiety, TIA, GI bleed, and depression, who presents to the emergency department with altered mental status since yesterday. The patients reports that the patient had an episode of choking where he turned blue. She reports the patient having respiratory distress and coughing during/after the choking episode. Due to lethargy and had a lack of energy he was sent to er. 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 Cardiovascular: Yes: HTN, Hyperlipdemia Psych: Yes: Anxiety, Depression - Smoking History Smoking history: Never smoked Have you smoked in the past 12 months: No Aproximately how many cigarettes per day: 0 MRI done shows non hemoorhagic infarct CT scan shows consolidation iv abx now po abx depression mood anxiety stable MPD on aspririn and hydroxurea patient going home with vns, hospital bed at [facility] Condition: Guarded - Instructions Diet, Activity, Other Instructions: levaquin for 4 days see PMD In 4 days Referrals: Homero Proctor MD [Staff Physician] - Jose De Leon MD [Primary Care Provider] - 1 Week Disposition: VNS/HOME HEALTH CARE - Home Medications Comprehensive Discharge Medication List: Ambulatory Orders Allopurinol [Zyloprim -] 300 mg PO DAILY 09/24/14 Atorvastatin Ca [Lipitor] 20 mg PO HS 09/24/14 Acetaminophen [Tylenol .Regular Strength -] 650 mg PO Q4H PRN #0 tablet Amlodipine Besylate [Norvasc -] 10 mg PO DAILY tablet 07/11/16 Aspirin [ASA -] 81 mg PO DAILY #0 tab.chew 07/11/16 Carvedilol [Coreg -] 25 mg PO BID #0 tablet 07/11/16 Fluoxetine HCl Liquid [Prozac 20mg/5mL Oral Solution -] 40 mg PO DAILY #0 ml Hydroxyurea [Hydrea 500Mg Capsule -] 500 mg PO BID@0600,1800 #0 capsule Risperidone [Risperdal -] 1 mg PO BID #0 tablet 07/11/16 Valsartan [Diovan] 160 mg PO DAILY #0 tablet 07/11/16 Alprazolam [Xanax] 1 mg PO QID PRN 07/12/16
[2016-07-22] MEDS: ATORVASTATIN CA 20 MG TABLET (FP) PO SCH (23:14)
[2016-07-22] MEDS: QUEtiapine FUMARATE 25 MG TABLET (FP) PO SCH (23:15)
[2016-07-23] MEDS: METOCLOPRAMIDE HCL 10 MG TABLET (FP) PO SCH ×3 (06:55→18:03)
[2016-07-23] MEDS: LEVOFLOXACIN 500 MG TABLET (FP) PO SCH (06:56)
[2016-07-23] MEDS: busPIRone HCL 5 MG TABLET PO SCH ×2 (06:56→13:24)
--- NOTE | 2016-07-23 09:18 | PN ---
Progress Note, Physician History of Present Illness: comfortable - Current Medication List Current Medications: Active Medications Acetaminophen (Tylenol -) 650 mg PO Q4H PRN PRN Reason: FEVER OR PAIN Last Admin: 07/20/16 22:39 Dose: 650 mg Allopurinol (Zyloprim -) 300 mg PO DAILY [facility] Last Admin: 07/22/16 09:01 Dose: 300 mg Alprazolam (Xanax -) 0.5 mg PO BID PRN PRN Reason: ANXIETY Last Admin: 07/22/16 08:55 Dose: 0.5 mg Aspirin (Asa -) 81 mg PO DAILY [facility] Last Admin: 07/22/16 09:01 Dose: 81 mg Atorvastatin Calcium (Lipitor -) 20 mg PO HS [facility] Last Admin: 07/22/16 23:14 Dose: Not Given Buspirone HCl (Buspar -) 10 mg PO TID [facility] Last Admin: 07/23/16 06:56 Dose: 10 mg Carvedilol (Coreg -) 25 mg PO BID [facility] Last Admin: 07/22/16 23:13 Dose: Not Given Fluoxetine HCl (Prozac -) 40 mg PO DAILY [facility] Last Admin: 07/22/16 09:00 Dose: 40 mg Hydroxyurea (Hydrea -) 500 mg PO DAILY [facility] Last Admin: 07/22/16 09:01 Dose: 500 mg Levofloxacin (Levaquin -) 500 mg PO DAILY@0600 [facility] Last Admin: 07/23/16 06:56 Dose: 500 mg Metoclopramide HCl (Reglan -) 5 mg PO TIDAC [facility] Last Admin: 07/23/16 06:55 Dose: 5 mg Pantoprazole Sodium (Protonix -) 40 mg PO DAILY [facility] Last Admin: 07/22/16 09:01 Dose: 40 mg Quetiapine Fumarate (Seroquel -) 25 mg PO HS [facility] Last Admin: 07/22/16 23:15 Dose: Not Given - Objective Vital Signs: Vital Signs Temperature 97.6 F 07/23/16 06:00 Pulse Rate 65 07/23/16 06:00 Respiratory Rate 16 07/23/16 06:00 Blood Pressure 155/93 07/23/16 06:00 O2 Sat by Pulse Oximetry (%) 94 L 07/22/16 21:00 Cardiovascular: Yes: Regular Rate and Rhythm Respiratory: Yes: Regular, CTA Bilaterally Gastrointestinal: Yes: Normal Bowel Sounds, Soft Labs: CBC, BMP 07/22/16 06:00 07/22/16 06:00 INR, PTT INR 1.12 (0.82-1.09) 07/12/16 20:15 Problem List - Problems (1) Sepsis Code(s): A41.9 - SEPSIS, UNSPECIFIED ORGANISM (2) Acute renal insufficiency Code(s): N28.9 - DISORDER OF KIDNEY AND URETER, UNSPECIFIED (3) Altered mental status Code(s): R41.82 - ALTERED MENTAL STATUS, UNSPECIFIED Qualifiers: Altered mental status type: transient alteration of awareness Qualified Code(s): R40.4 - Transient alteration of awareness (4) Pneumonia Code(s): J18.9 - PNEUMONIA, UNSPECIFIED ORGANISM Qualifiers: Pneumonia type: aspiration pneumonia Aspiration pneumonia type: unspecified Laterality: right Lung location: lower lobe of lung Qualified Code(s): J69.0 - Pneumonitis due to inhalation of food and vomit (5) Anxiety and depression Code(s): F41.9 - ANXIETY DISORDER, UNSPECIFIED F32.9 - MAJOR DEPRESSIVE DISORDER, SINGLE EPISODE, UNSPECIFIED (6) DVT prophylaxis Code(s): [id number] - (7) Thrombocytosis Code(s): D47.3 - ESSENTIAL (HEMORRHAGIC) THROMBOCYTHEMIA (8) CVA (cerebral vascular accident) Code(s): I63.9 - CEREBRAL INFARCTION, UNSPECIFIED Assessment/Plan - 80 year old male with a significant past medical history of HTN, hypercholesterolemia, gout, anxiety, TIA, GI bleed, and depression, who presents to the emergency department with altered mental status since yesterday. The patients reports that the patient had an episode of choking where he turned blue. She reports the patient having respiratory distress and coughing during/after the choking episode. Due to lethargy and had a lack of energy he was sent to er. 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 Cardiovascular: Yes: HTN, Hyperlipdemia Psych: Yes: Anxiety, Depression - Smoking History Smoking history: Never smoked Have you smoked in the past 12 months: No Aproximately how many cigarettes per day: 0 MRI done shows non hemoorhagic infarct CT scan shows consolidation iv abx now po abx depression mood anxiety stable MPD on aspririn and hydroxurea patient going home with vns, hospital bed at [facility] Problems (1) Altered mental status Assessment/Plan: possible sec to PNA vs intracranial pathology MRI done acute non hemorrhagic infarct in right periventricular region iv abx per ID wbc trending down so far cultures negative ct chest shows right mid lobe consolidation - to get MBS Code(s): R41.82 - ALTERED MENTAL STATUS, UNSPECIFIED Qualifiers: Altered mental status type: transient alteration of awareness Qualified Code(s): R40.4 - Transient alteration of awareness (2) Aspiration pneumonia Assessment/Plan: gurmeet angulo consult MBS NOTED--DIET ORDERED afebrle wbc now normal changed to po abx Code(s): J69.0 - PNEUMONITIS DUE TO INHALATION OF FOOD AND VOMIT (3) Depression Assessment/Plan: prozac buspar 10 tid for anxiety seraquel for agitation Code(s): F32.9 - MAJOR DEPRESSIVE DISORDER, SINGLE EPISODE, UNSPECIFIED (4) Acute renal insufficiency Assessment/Plan: improved with hydration Code(s): N28.9 - DISORDER OF KIDNEY AND URETER, UNSPECIFIED (5) CVA (cerebral vascular accident) Assessment/Plan: PT eval neuro on board echo noted got eeg today MRI noted acute non hemorhagic infarct in right periventricular region dc iv fluids Code(s): I63.9 - CEREBRAL INFARCTION, UNSPECIFIED
--- NOTE | 2016-07-23 10:14 | PN ---
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 Plan is for d/c home. Reviewed rec with again, regarding constant supervision/assistancew/ impulse control during PO intake, blenderizing food, thickened liquids. Pt' demonstrated understanding and compliance.
--- NOTE | 2016-07-23 10:41 | PN ---
Progress Note (short form) - Note Progress Note: Renal Follow up for ANSELMO Pt seen and examined at the bedside no complaints good urine output no N/V/D, SOB Vital Signs Temperature 97.6 F 07/23/16 06:00 Pulse Rate 65 07/23/16 06:00 Respiratory Rate 16 07/23/16 06:00 Blood Pressure 155/93 07/23/16 06:00 O2 Sat by Pulse Oximetry (%) 94 L 07/22/16 21:00 Intake & Output 07/20/16 07/21/16 07/22/16 07/23/16 23:59 23:59 23:59 23:59 Intake Total 248 900 6542 300 Output Total 300 Balance 893 213 2955 300 Gen: NAD CVS: RRR Lungs: CTA Abd: soft NT/ND Ext: No edema CBC, BMP 07/22/16 06:00 07/22/16 06:00 Current Medications Acetaminophen (Tylenol -) 650 mg PO Q4H PRN PRN Reason: FEVER OR PAIN Last Admin: 07/20/16 22:39 Dose: 650 mg Allopurinol (Zyloprim -) 300 mg PO DAILY [facility] Last Admin: 07/22/16 09:01 Dose: 300 mg Alprazolam (Xanax -) 0.5 mg PO BID PRN PRN Reason: ANXIETY Last Admin: 07/22/16 08:55 Dose: 0.5 mg Aspirin (Asa -) 81 mg PO DAILY [facility] Last Admin: 07/22/16 09:01 Dose: 81 mg Atorvastatin Calcium (Lipitor -) 20 mg PO HS [facility] Last Admin: 07/22/16 23:14 Dose: Not Given Buspirone HCl (Buspar -) 10 mg PO TID [facility] Last Admin: 07/23/16 06:56 Dose: 10 mg Carvedilol (Coreg -) 25 mg PO BID [facility] Last Admin: 07/22/16 23:13 Dose: Not Given Fluoxetine HCl (Prozac -) 40 mg PO DAILY [facility] Last Admin: 07/22/16 09:00 Dose: 40 mg Hydroxyurea (Hydrea -) 500 mg PO DAILY [facility] Last Admin: 07/22/16 09:01 Dose: 500 mg Levofloxacin (Levaquin -) 500 mg PO DAILY@0600 [facility] Last Admin: 07/23/16 06:56 Dose: 500 mg Metoclopramide HCl (Reglan -) 5 mg PO TIDAC [facility] Last Admin: 07/23/16 06:55 Dose: 5 mg Pantoprazole Sodium (Protonix -) 40 mg PO DAILY [facility] Last Admin: 07/22/16 09:01 Dose: 40 mg Quetiapine Fumarate (Seroquel -) 25 mg PO HS [facility] Last Admin: 07/22/16 23:15 Dose: Not Given A/P 80 year old gentleman with PMhx of HLD, Gout, Anxiety, TIA, GIB who presented with AMS and found to have acute ischemic CVA with ANSELMO. #Acute Kidney Injury secondary to pre-renal azotemia/Volume depletion/ hemodynamic changes Renal function stable s/p IVF UA without active sediment. UPCR did not show any significant proteinuria off IVF at this time Ok for discharge with outpatient renal follow up avoid nsaids, fleet enemas Lee Ramirez DO
[2016-07-23] MEDS: ASPIRIN 81 MG CHEWABLE TABLETS PO SCH (11:06)
[2016-07-23] MEDS: CARVEDILOL 25 MG TABLET (FP) PO SCH (11:06)
[2016-07-23] MEDS: PANTOPRAZOLE 40 MG TABLET (FP) PO SCH (11:07)
[2016-07-23] MEDS: HYDROXYUREA 500 MG CAPSULE PO SCH (11:07)
[2016-07-23] MEDS: FLUoxetine HCL 20 MG CAPSULE (FP) PO SCH (11:07)
[2016-07-23] MEDS: ALLOPURINOL 300 MG TABLET (FP) PO SCH (11:07)
[2016-07-23] MEDS: ALPRAZolam 0.25 MG TABLET PO PRN ×2 (11:08→18:59)
[2016-07-23 15:16] VITALS: PULSE 61
[2016-07-23 17:49] LABS: CALCIUM 8.5 mg/dL (8.5-10.1); CREATININE 1.7 mg/dL (0.7-1.3)
[2016-07-23 18:21] VITALS: BP 131/76; TEMP 97.8
--- NOTE | 2016-07-23 23:44 | PN ---
Progress Note (short form) - Note Progress Note: Patient seen and examined No new c/o watching TV and does not want to be disturbed denies any complaints Last Vital Signs Temp Pulse Resp BP Pulse Ox 97.8 F 61 18 131/76 96 07/23/16 18:18 07/23/16 18:18 07/23/16 18:18 07/23/16 18:18 07/23/16 09:00 HEENT: ARMANDO, EOM Intact Cor: RSR, No murmurs, No gallops Lungs: Clear to P&A Abd: Soft, Normal bowel sounds, No organomegaly Dysarthric. Decreased gag but swallows sips H2O without difficulty. Full EOM's Min Left drift. Prominent Left (sensory) hemidystaxia. Abnormal Lab Results 07/21/16 07/21/16 06:05 06:05 Monocytes % 12.4 H Basophils % 3.1 H D BUN 29 H Creatinine 1.5 H AST 39 H Albumin 3.1 L Current Medications Acetaminophen (Tylenol -) 650 mg PO Q4H PRN PRN Reason: FEVER OR PAIN Last Admin: 07/20/16 22:39 Dose: 650 mg Allopurinol (Zyloprim -) 300 mg PO DAILY [facility] Last Admin: 07/21/16 10:06 Dose: 300 mg Alprazolam (Xanax -) 0.5 mg PO BID PRN PRN Reason: ANXIETY Aspirin (Asa -) 81 mg PO DAILY [facility] Last Admin: 07/21/16 10:07 Dose: 81 mg Atorvastatin Calcium (Lipitor -) 20 mg PO HS [facility] Last Admin: 07/20/16 22:38 Dose: 20 mg Buspirone HCl (Buspar -) 10 mg PO TID [facility] Last Admin: 07/21/16 14:30 Dose: 10 mg Carvedilol (Coreg -) 25 mg PO BID [facility] Last Admin: 07/21/16 10:07 Dose: 25 mg Fluoxetine HCl (Prozac -) 40 mg PO DAILY [facility] Last Admin: 07/21/16 10:06 Dose: 40 mg Hydroxyurea (Hydrea -) 500 mg PO DAILY [facility] Levofloxacin (Levaquin -) 500 mg PO DAILY@0600 [facility] Last Admin: 07/21/16 05:45 Dose: 500 mg Metoclopramide HCl (Reglan -) 5 mg PO TIDAC [facility] Last Admin: 07/21/16 12:08 Dose: Not Given Pantoprazole Sodium (Protonix -) 40 mg PO DAILY [facility] Last Admin: 07/21/16 10:07 Dose: 40 mg Quetiapine Fumarate (Seroquel -) 25 mg PO HS [facility] Last Admin: 07/20/16 22:38 Dose: 25 mg A/P 80 y/o patient with h/o HTN, hyperlipidemia, gout, anxiety, TIA, recent admission for lacunar infarcts with petechial hemorrhages, also recently diagnosed with myeloproliferative disorder. Was discharged to halfway-- choked on food--sent in for aspiration pneumonia. Treated with broad spectrum antibiotics MRI shows subacute , resolving hemorrhagic infarct right thalamus/cerebral peduncles and new nonhemorrhagic infarct in rt. periventricular region HAs been on hydrea since 07/05 Platelt count trending down --normal WBC trended down hold hydrea---change to 500mg Tue-jaron--Sat. continue ASA VWF activity >100% will need close monitoring of CBC--disucssed this with patients daughters in great detail. contact no. garcia and asked them to follow up. discussed with Dr. De Leon---to arrange home CBC checks starting 07/28. discussed with patients daughter --signs and symptoms to watch for and [facility]. Need for f/ u/monitoring
== END 2016-07-23 19:10 | disposition home health service (06) | DRG 871 ==
LOC: JER 19:54 → SUPCPDRO 19:54 → JERBED 23:33 → J4W 07-13 01:23 → J4S 07-18 18:22
PROVIDERS: ADMIT Family Medicine; ATTEND Family Medicine
DX: A41.9 Sepsis, unspecified organism (principal); G92 Toxic encephalopathy; J69.0 Pneumonitis due to inhalation of food and vomit; J96.01 Acute respiratory failure with hypoxia; I63.9 Cerebral infarction, unspecified; N17.9 Acute kidney failure, unspecified; F05 Delirium due to known physiological condition; C94.6 Myelodysplastic disease, not elsewhere classified; E78.00 Pure hypercholesterolemia, unspecified; M10.9 Gout, unspecified; F41.8 Other specified anxiety disorders; I10 Essential (primary) hypertension; Z86.73 Personal history of transient ischemic attack (TIA), and cerebral infarction without residual deficits; D47.3 Essential (hemorrhagic) thrombocythemia; I69.320 Aphasia following cerebral infarction; K21.9 Gastro-esophageal reflux disease without esophagitis; I25.10 Atherosclerotic heart disease of native coronary artery without angina pectoris; Z74.01 Bed confinement status; Z88.0 Allergy status to penicillin
CPT/HCPCS: 36415; 36600; 70450-TC; 70544-TC; 70551-TC; 71010-TC; 71250-TC; 74000-TC; 74230-TC; 76775-TC; 76856-TC; 80048; 80053; 81003; 81015; 82375; 82550; 82553; 82570; 82803; 83050; 83605; 83735; 84100; 84156; 84300; 84484; 84540; 84550; 85025; 85610; 85730; 86850; 86900; 86901; 87040; 87086; 87205; 90670; 92611-GN; 93005; 93010; 93306-TC; 95816; 97116-GP; 97163-GP; 99282-25; G0008; J8999; Q2037

== ENCOUNTER 2016-08-02 06:07 | Inpatient (IN) | payer OTHER, BC ==
[2016-08-02 06:27] VITALS: BMI 33.4
[2016-08-02 07:12] LABS: MCHC 33.2 g/dl (32.0-35.9); MEAN CELL VOLUME 96.4 fl (80-96); MEAN PLT VOLUME 7.8 fl (7.5-11.1); PLATELET COUNT 339 K/MM3 (134-434); RDW 15.8 % (11.9-15.9); WHITE BLOOD COUNT 6.1 K/mm3 (4.0-10.0)
[2016-08-02 07:52] LABS: INR 1.02 (0.82-1.09); PROTHROMBIN TIME (PATIENT) 11.2 SEC (9.98-11.88)
[2016-08-02 08:07] LABS: ALBUMIN 3.3 g/dl (3.4-5.0); CALCIUM 8.8 mg/dL (8.5-10.1); CREATININE 1.3 mg/dL (0.7-1.3); TROPONIN I 0.02 ng/ml (0.00-0.05)
[2016-08-02 08:09] LABS: BILIRUBIN,TOTAL 0.4 mg/dL (0.2-1.0); TOT PROT 7.4 g/dl (6.4-8.2)
--- NOTE | 2016-08-02 08:12 | PDOC ---
History of Present Illness <Sumit Palomo - Last Filed: 08/02/16 09:05> - General History Source: Patient, Spouse Exam Limitations: No Limitations - History of Present Illness Initial Comments: 08/02/16 08:30 The patient is a 80 year old male, with a significant past medical history of CVA, HTN, hypercholesterolemia, gout, anxiety, TIA, GI bleed, and depression, who presents to the emergency department with complaining of difficulty breathing. As per the patient was wheezing during his sleep and she had difficulty waking him up. Patient also seems more confused and his speech is more slurred than usual. She also noted that patient was recently diagnosed with aspiration pneumonia and was on course of abx that he finished. He denies chest pain, headache and dizziness. He denies fever, chills, nausea, vomit, diarrhea and constipation. He denies dysuria, frequency, urgency and hematuria. Allergies:penicillin PCP - Dr. De Leon <Krista Paulino - Last Filed: 08/02/16 09:27> - General Chief Complaint: Respiratory Stated Complaint: DIFFICULTY BREATHING Time Seen by Provider: 08/02/16 07:11 NIH Stroke Scale - Initial Evaluation Level of consciousness: Alert Ask patient the month and their age: Answers both correctly Ask patient to open & close eyes; make fist and let go: Obeys both correctly Best gaze (horizontal eye movement): Normal Visual field testing: No visual field loss Facial paresis (Show teeth/raise eyebrows/close eyes tight): Minor paralysis ( flattened nasolabial fold, asymmetry on smiling) Motor Function: Left Arm: Normal Motor Function: Right Arm: Normal (extends arm 90 (or 45) degrees for 10 seconds without drift Motor Function: Left Leg: Normal (extends leg 30 degrees for 5 seconds without drift) Motor Function: Right Leg: Normal (extends leg 30 degrees for 5 seconds without drift) Limb Ataxia: Present in two limbs Sensory(Use pinprick test arms,legs,trunk,face/side to side): Normal Best language (Describe picture, name items, read sentences): Mild to moderate aphasia Dysarthria (read several words): Mild to moderate slurring of words Extinction and Inattention: No abnormality - Total Score NIH Stroke Scale Score: 5 <Sumit Palomo - Last Filed: 08/02/16 09:05> tPA Exclusion checklist 3-4.5h - Time Elapsed Date last known well: 07/31/16 - Thrombolytic Therapy Candidate Is patient eligible for thrombolytic therapy: No - Exclusion Criteria 3-4.5 hr SBP greater than 185 or DBP greater than 110mmHg despite tx: No Recent IC/spinal surgery,head trauma or stroke<3mos.: No Hx IC hemorrhage, IC neoplasm, AV malformation or aneurysm: No Active internal bleeding: No Blding diathesis(low plt ct, inc PTT,INR>1.7 or use of NOAC): No CT demonstrates multilobar infarct(>1/3 cerebral hemiphere): No Arterial puncture at noncompressible site in previous 7 days: No Blood glucose concentration less than 50mg/dL (2.7mmol/L): No - Relative Exclusion Criteria 3-4.5 hr Life expectancy <1 yr or severe co-morbid illness: No : No Patient/family refused: No Rapid improvement: No Stroke severity too mild: No Recent acute MD (w/in previous 3 months): No Seizure at onset with postictal residual neuro impairments: No Major surgery or serious trauma w/in previous 14 days: No Recent GI or hemorrhage (w/in previous 21 days): No - Add'l Relative Exclusion 3-4.5 hr Age > 80: No Hx of both diabetes AND prior ischemic stroke: No Taking an oral anticoagulant regardless of INR: No NIHSS >25: No - Ineligibility reason(s) Reasons No tPA given: Outside of window - delayed arrival <Sumit Palomo - Last Filed: 08/02/16 09:05> Past History - Past Medical History Anemia: No Asthma: No Cancer: No Cardiac Disorders: No CVA: Yes (TIA X2) COPD: No CHF: No Dementia: No Diabetes: No GI Disorders: Yes (GI bleed) Disorders: No HTN: Yes Hypercholesterolemia: Yes Liver Disease: No Psychiatric Problems: Yes (AXIETY, DEPRESSION) Seizures: No Thyroid Disease: No - Surgical History Abdominal Surgery: No Appendectomy: No Cardiac Surgery: No Cholecystectomy: No Lung Surgery: No Neurologic Surgery: No Orthopedic Surgery: No - Immunization History Immunization Up to Date: Yes - Psycho/Social/Smoking Cessation Hx Anxiety: No Suicidal Ideation: No Smoking Status: No Smoking History: Never smoked Have you smoked in the past 12 months: No Number of Cigarettes Smoked Daily: 0 Information on smoking cessation initiated: No Hx Alcohol Use: No Drug/Substance Use Hx: No Substance Use Type: None Hx Substance Use Treatment: No <Sumit Palomo - Last Filed: 08/02/16 09:05> <Krista Paulino - Last Filed: 08/02/16 09:27> - Past Medical History Allergies/Adverse Reactions: Allergies Allergy/AdvReac Type Severity Reaction Status Date / Time Penicillins Allergy Mild Nausea Verified 08/02/16 06:20 Home Medications: Ambulatory Orders Allopurinol [Zyloprim -] 300 mg PO DAILY 09/24/14 Atorvastatin Ca [Lipitor] 20 mg PO HS 09/24/14 Pantoprazole Sodium [Protonix -] 40 mg PO DAILY #14 tablet.ec 07/22/16 Quetiapine Fumarate [Seroquel -] 25 mg PO HS #20 tablet 07/22/16 Alprazolam [Xanax] 1 mg PO QID 08/02/16 Atenolol [Tenormin] 50 mg PO DAILY 08/02/16 Fluoxetine HCl Liquid [Prozac 20mg/5mL Oral Solution -] 60 mg PO DAILY 08/02/16 Hydroxyurea [Hydrea 500Mg Capsule -] 500 mg PO ASDIR 08/02/16 Review of Systems - Review of Systems Able to Perform ROS?: Yes Comments:: 08/02/16 08:31 CONSTITUTIONAL: Absent: fever, chills, diaphoresis, generalized weakness, malaise, loss of appetite HEENT: Absent: rhinorrhea, nasal congestion, throat pain, throat swelling, difficulty swallowing, mouth swelling, ear pain, eye pain, visual Changes CARDIOVASCULAR: Absent: chest pain, syncope, palpitations, irregular heart rate, lightheadedness , peripheral edema RESPIRATORY: Absent: cough, shortness of breath, dyspnea with exertion, orthopnea, wheezing, stridor, hemoptysis GASTROINTESTINAL: Absent: abdominal pain, abdominal distension, nausea, vomiting, diarrhea, constipation, melena, hematochezia GENITOURINARY: Absent: dysuria, frequency, urgency, hesitancy, hematuria, flank pain, genital pain MUSCULOSKELETAL: Absent: myalgia, arthralgia, joint swelling SKIN: Absent: rash, itching, pallor HEMATOLOGIC/IMMUNOLOGIC: Absent: easy bleeding, easy bruising, lymphadenopathy, frequent infections ENDOCRINE: Absent: unexplained weight gain, unexplained weight loss, heat intolerance, cold intolerance NEUROLOGIC: Absent: headache, focal weakness or paresthesias, dizziness, unsteady gait, seizure, mental status changes, bladder or bowel incontinence PSYCHIATRIC: Absent: anxiety, depression, suicidal or homicidal ideation, hallucinations. <Krista Paulino - Last Filed: 08/02/16 09:27> *Physical Exam - Vital Signs Last Vital Signs Temp Pulse Resp BP Pulse Ox 57 L 16 157/88 93 L 08/02/16 06:21 08/02/16 06:21 08/02/16 06:21 08/02/16 06:21 <Sumit Palomo - Last Filed: 08/02/16 09:05> - Vital Signs Last Vital Signs Temp Pulse Resp BP Pulse Ox 57 L 16 157/88 93 L 08/02/16 06:21 08/02/16 06:21 08/02/16 06:21 08/02/16 06:21 - Physical Exam Comments: 08/02/16 08:31 GENERAL: Well developed, well nourished. Awake and alert. In no acute distress. HEENT: Normocephalic, atraumatic. PERRLA, EOMI. No conjunctival pallor. Sclera are non- icteric. Moist mucous membranes. Oropharynx is clear. NECK: Supple. Full ROM. No JVD. Carotid pulses 2+ and symmetric, without bruits. No thyromegaly. No lymphadenopathy. CARDIOVASCULAR: Regular rate and rhythm. No murmurs, rubs, or gallops. Distal pulses are 2+ and symmetric. PULMONARY: No evidence of respiratory distress. Lungs clear to auscultation bilaterally. No wheezing, rales or rhonchi. ABDOMINAL: +Obese. Soft. Non-tender. Non-distended. No rebound or guarding. No organomegaly. Normoactive bowel sounds. MUSCULOSKELETAL Normal range of motion at all joints. No bony deformities or tenderness. No CVA tenderness. EXTREMITIES: No cyanosis. No clubbing. No edema. No calf tenderness. SKIN: Warm and dry. Normal capillary refill. No rashes. No jaundice. NEUROLOGICAL: +Slurred speech more than baseline. +5/5 strength bilaterally, bilateral straight leg raises. Alert, awake, appropriate. Cranial nerves 2-12 intact. No deficits to light touch and temperature in face, upper extremities and lower extremities. No motor deficits in the in face, upper extremities and lower extremities. Normoreflexic in the upper and lower extremities. Toes are downgoing bilaterally. PSYCHIATRIC: Cooperative. Good eye contact. Appropriate mood and affect. <Krista Paulino - Last Filed: 08/02/16 09:27> ED Treatment Course - LABORATORY CBC & Chemistry Diagram: 08/02/16 06:18 08/02/16 06:18 - ADDITIONAL ORDERS Additional order review: Laboratory Results 08/02/16 07:28 INR 1.02 PTT (Actin FS) 33.0 08/02/16 06:18 RBC 4.69 MCV 96.4 H MCHC 33.2 RDW 15.8 D MPV 7.8 Neutrophils % Y Lymphocytes % Y - RADIOLOGY Radiology Studies Ordered: Category Date Time Status HEAD CT WITHOUT CONTRAST [CT] Stat CT Scan 08/02/16 07:25 Taken <Sumit Palomo - Last Filed: 08/02/16 09:05> - LABORATORY CBC & Chemistry Diagram: 08/02/16 06:18 08/02/16 06:18 - ADDITIONAL ORDERS Additional order review: Laboratory Results 08/02/16 08/02/16 08/02/16 07:28 06:18 06:18 INR 1.02 PTT (Actin FS) 33.0 Sodium 141 Potassium 4.1 Chloride 104 Carbon Dioxide 32 Anion Gap 5 L BUN 19 H D Creatinine 1.3 D Creat Clearance w eGFR 53.39 Random Glucose 88 Calcium 8.8 Total Bilirubin 0.4 D AST 32 ALT 31 Alkaline Phosphatase 87 D Creatine Kinase 57 Troponin I 0.02 Total Protein 7.4 Albumin 3.3 L 08/02/16 06:18 RBC 4.69 MCV 96.4 H MCHC 33.2 RDW 15.8 D MPV 7.8 Neutrophils % Y Lymphocytes % Y - RADIOLOGY Radiology Studies Ordered: 08/02/16 08:34 EXAM#: CT/HEAD CT WITHOUT CONTRAST Cranial CT without contrast Clinical information: evaluate for CVA No intracranial hemorrhage is identified. There is no evidence of acute infarction within the limitations of CT. Small chronic bilateral thalamic and basal ganglia infarcts are noted as well as a small chronic right cerebellar hemispheric infarct. Moderate to marked periventricular and subcortical microvascular ischemic gliosis is seen. Generalized cerebral atrophy with corresponding ventricular dilatation. There is no extra-axial fluid collection. Impression: No definite CT evidence of acute infarction. Chronic supratentorial and infratentorial infarcts are noted. A MRI study of 07/14/2016 had identified at that time a punctate acute right basal ganglia infarct and resolving small late subacute hemorrhages within the right thalamus/cerebral peduncle. EXAM#: RAD/CHEST PA LAT Chest: Shortness of breath 2 views of the chest reveal no significant change since 07/17/2016. There is an elevated right hemidiaphragm with mamillation, clear lungs and prominent mediastinum with sclerotic unfolded aorta. Impression: No acute pathology. No significant change. <Krista Paulino - Last Filed: 08/02/16 09:27> Medical Decision Making - Medical Decision Making 08/02/16 08:40 A call was placed to Dr. De Leon at his service. Awaiting call back from Dr. Hinojosa. 08/02/16 09:[address] Hinojosa. 08/02/16 09:11 A call was placed to Dr. Bonilla at his service. Awaiting call back. 08/02/16 09:[address] Bonilla. <Krista Paulino - Last Filed: 08/02/16 09:27> *DC/Admit/Observation/Transfer - Discharge Dispostion Admit: Yes <Sumit Palomo - Last Filed: 08/02/16 09:05> - Attestations Scribe Attestion: 08/02/16 08:32 Documentation prepared by SERGO Diane, acting as biomedical electronics technician for Sumit Palomo MD. <Krista Paulino - Last Filed: 08/02/16 09:27> Diagnosis at time of Disposition: Confusion state, CVA (cerebral vascular accident), Multiple lacunar infarcts - Discharge Dispostion Condition at time of disposition: Guarded - Referrals
[2016-08-02 09:38] LABS: PLATELET COMMENT2 NO CLOTTING DETECTED; PLATELET COMMENT3 FEW LARGE PLTS; PLATELET ESTIMATE ADEQUATE (NORMAL); SMUDGE CELLS FEW
--- NOTE | 2016-08-02 13:20 | CON.NEURO ---
Consult Consult Specialty:: [facility] Referred by:: Ashish - History of Present Illness History of Present Illness: 80 man with hx of prior CVA Seen in the ER patient's and daughter at the bedside patient's reported that the patient became not himself confused no report of any seizure like activity no fever no head trauma no chest pain about dictation. I saw the patient in the emergency room patient had a CAT scan of the head which revealed no evidence of acute pathology Patient was being treated for questionable subacute stroke Patient was to be admitted to telemetry Patient was not a candidate for TPA PMH 1. CVA, 2. CAd 3. HTN, 4. hypercholesterolemia, 5. gout, 6. anxiety, 7. TIA, 8 GI bleed, 9. 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 Cardio/Vascular: Yes: HTN, Hyperlipdemia Psych: Yes: Anxiety, Depression - Alcohol/Substance Use Hx Alcohol Use: No - Smoking History Smoking history: Never smoked Have you smoked in the past 12 months: No Aproximately how many cigarettes per day: 0 - Social History Usual Living Arrangement: With Spouse Home Medications - Allergies Allergies/Adverse Reactions: Allergies Allergy/AdvReac Type Severity Reaction Status Date / Time Penicillins Allergy Mild Nausea Verified 08/02/16 06:20 - Home Medications Home Medications: Ambulatory Orders Allopurinol [Zyloprim -] 300 mg PO DAILY 09/24/14 Atorvastatin Ca [Lipitor] 20 mg PO HS 09/24/14 Pantoprazole Sodium [Protonix -] 40 mg PO DAILY #14 tablet.ec 07/22/16 Quetiapine Fumarate [Seroquel -] 25 mg PO HS #20 tablet 07/22/16 Alprazolam [Xanax] 1 mg PO QID 08/02/16 Aspirin [ASA -] 81 mg PO DAILY 08/02/16 Atenolol [Tenormin] 50 mg PO DAILY 08/02/16 Fluoxetine HCl Liquid [Prozac 20mg/5mL Oral Solution -] 60 mg PO DAILY 08/02/16 Hydroxyurea [Hydrea 500Mg Capsule -] 500 mg PO ASDIR 08/02/16 Family Disease History - Family Disease History Family History: Unable to Obtain Review of Systems - Review of Systems Constitutional: reports: No Symptoms Eyes: reports: No Symptoms Physical Exam-Neuro Vital Signs: Vital Signs Temperature Pulse Rate 60 08/02/16 09:20 Respiratory Rate 20 08/02/16 09:20 Blood Pressure 161/97 08/02/16 09:20 O2 Sat by Pulse Oximetry (%) 95 08/02/16 09:20 Constitutional: Yes: Well Nourished Neck: Yes: WNL Cardiovascular: Yes: WNL Labs: INR, PTT INR 1.02 (0.82-1.09) 08/02/16 07:28 - Neuro Exam Level Of Consciousness: Yes: Oriented to Person, Oriented to Place, Oriented to Time Eyes: Yes: PERRLA Speech: WNL Mini Mental Exam: 22 Cranial Nerves II-XII Intact: Yes Gag: Present DTR's: 1+ Left Bicep, 1+ Right Bicep, 1+ Left Brachioradialis, 1+ Right Brachioradialis Response to light touch: Abnormal Response to pain prick: Abnormal Response to temperature: Abnormal Motor Strength: 4/5: Left Arm, Right Arm, Left Leg, Right Leg Imaging - Results Cat Scan: Image Reviewed Problem List - Problems (1) CVA (cerebral vascular accident) Code(s): I63.9 - CEREBRAL INFARCTION, UNSPECIFIED Qualifiers: CVA mechanism: unspecified Qualified Code(s): I63.9 - Cerebral infarction, unspecified (2) Confusion state Code(s): F44.89 - OTHER DISSOCIATIVE AND CONVERSION DISORDERS Assessment/Plan No evidence of acute cVA Resolving Toxic metabolic encelopathy ?? TIA 1 .neuro checks q 2 2 .No need for Tele 3. Full ASA 4 .Results of MRI brain 5. Blood work 6. EEG Thank you fro the kind referral
--- NOTE | 2016-08-02 13:27 | CONSULT ---
Consult - text type - Consultation Consultation Note: CARDIOLOGY ASKED BY DR. Jane TO SEE PT. 80 YO MAN WHEEZING/DYSPNEA/CONFUSION. PT SEEN, EXAMINED. X RAYS, ECG'S REVIEWED. WORKING DX; ALTERED MENTAL STATUS TOXIC METABOLIC ?MEDICATION INDUCED WITH UNDERLYING DEMENTIA. DIFF DX CVA. NO EVIDENCE OF ACUTE CARDIAC EVENT/ISCHEMIA OR CHF REC: OBTAIN PRIOR RECORDS NOT PRESENTLY AVAILABLE W/U AND TREATMENT DIRECTED BY IM/NEURO THANKS. FULL NOTE DICTATED
--- NOTE | 2016-08-02 14:14 | CONS ---
DATE OF REQUEST AND DATE OF CONSULTATION: 08/02/2016 PATIENT PROFILE: The patient is a 80-year-old man admitted on August 02, 2016, because of confusion and shortness of breath. The patient has no history of a myocardial infarction, angina, or congestive heart failure. He has a previous history of cerebrovascular accident and is thought to have had aspiration pneumonia. He has known hypertension and hyperlipidemia. He is admitted now with 1-2 days of confusion, shortness of breath manifested by gurgling and wheezing without chest pain. He presently has no specific complaints, but has been confused in the emergency room. PRIOR MEDICAL HISTORY: Gout, depression, hyperlipidemia, hypertension, anxiety, gastrointestinal bleeding. MEDICATIONS: Hydroxyurea, Prozac, atenolol 15 mg per day, allopurinol 300 mg per day, Lipitor 20 mg per day, Protonix 40 mg per day, Seroquel, Xanax. SOCIAL HISTORY: He lives at home with his , who is the primary care-cvicu rn. He has a devoted family. He smokes cigars rarely in the past, but not most recently. There is no history of alcohol abuse. REVIEW OF SYSTEMS: General: No fever or shaking chills. Gastrointestinal: No melena, no vomiting. Pulmonary: No hemoptysis. Cardiac: No edema. PHYSICAL EXAMINATION: General: The patient is confused, lying flat, in no distress. Vital signs: The heart rate is at 60, the blood pressure is 157/88, respiratory rate is 18 per minute, the weight is 220 pounds, the oxygen saturation is 95% with 2 L of supplemental oxygen. Neck: There is no neck vein distension. Lungs: The lung perry are clear. Heart: The heart sounds are normal. There is a 1/6 systolic murmur at the left sternal border. The rhythm is regular. Abdomen: Is soft and nontender. There is no peripheral edema. There is no focal neurological deficit. DATA BASE: The electrocardiogram demonstrates sinus bradycardia 59 per minute, left axis deviation, premature ventricular depolarizations are noted. There are no acute ST and T-wave changes seen. The chest x-ray was reviewed. It demonstrates no infiltrate, effusion, or pulmonary venous congestion. It is a portable film, and the heart size cannot be accurately assessed due to the technique of the film. A brain MRI demonstrates ischemic changes in the eldon and white matter. There is no evidence of an acute infarction. IMPRESSION: The working diagnosis is altered mental status secondary to a toxic metabolic event. Laboratory studies, however, failed to demonstrate any clear etiology as the serum glucose was 88, electrolytes were normal. The possibility of medication-induced altered mental status with underlying dementia is raised as a distinct possibility as the patient is on multiple medications that can affect the mental status including Seroquel, Xanax, and Prozac. The differential diagnoses would include a cerebrovascular accident, however, the brain imaging failed to demonstrate evidence of an acute stroke. There is no evidence to suggest an acute cardiac event as reflected by the unremarkable electrocardiogram, chest x-ray, physical findings, and troponin level of 0.02. RECOMMENDATIONS: I recommend the following: Obtain prior records not presently available with regards to previous cardiac studies not presently available and workup and therapy as directed by Internal Medicine and Neurology. Thank you for allowing me to take part in the care of this pleasant patient. YAO SIDDIQI M.D. [id number] cc: MD Aminata Schulz MD
--- NOTE | 2016-08-02 15:27 | HP ---
Admitting History and Physical - Primary Care Physician PCP: Aminata Hinojosa - Admission Chief Complaint: altered mental status History of Present Illness: The patient is a 80 year old male, with a significant past medical history of CVA, HTN, hypercholesterolemia, gout, anxiety, TIA, GI bleed, and depression, who presents to the emergency department with complaining of difficulty breathing. As per the patient was wheezing during his sleep and she had difficulty waking him up. Patient also seems more confused and his speech is more slurred than usual. She also noted that patient was recently diagnosed with aspiration pneumonia and was on course of abx that he finished. He denies chest pain, headache and dizziness. He denies fever, chills, nausea, vomit, diarrhea and constipation. He denies dysuria, frequency, urgency and hematuria. CODE ANITRA CALLED WITH STAT MRI OF BRAIN History Source: Patient, Family Member, Medical Record - Past Medical History BUSINESS SERVICES INTERN: Yes: CVA, TIA Cardiovascular: Yes: HTN, Hyperlipdemia Psych: Yes: Anxiety, Depression - Smoking History Smoking history: Never smoked Have you smoked in the past 12 months: No Aproximately how many cigarettes per day: 0 - Alcohol/Substance Use Hx Alcohol Use: No Home Medications - Allergies Allergies/Adverse Reactions: Allergies Allergy/AdvReac Type Severity Reaction Status Date / Time Penicillins Allergy Mild Nausea Verified 08/02/16 06:20 - Home Medications Home Medications: Ambulatory Orders Allopurinol [Zyloprim -] 300 mg PO DAILY 09/24/14 Atorvastatin Ca [Lipitor] 20 mg PO HS 09/24/14 Pantoprazole Sodium [Protonix -] 40 mg PO DAILY #14 tablet.ec 07/22/16 Quetiapine Fumarate [Seroquel -] 25 mg PO HS #20 tablet 07/22/16 Alprazolam [Xanax] 1 mg PO QID 08/02/16 Aspirin [ASA -] 81 mg PO DAILY 08/02/16 Atenolol [Tenormin] 50 mg PO DAILY 08/02/16 Fluoxetine HCl Liquid [Prozac 20mg/5mL Oral Solution -] 60 mg PO DAILY 08/02/16 Hydroxyurea [Hydrea 500Mg Capsule -] 500 mg PO ASDIR 08/02/16 Review of Systems Findings/Remarks: AWAKE ALERT X 2 CONFUSED - Review of Systems Constitutional: reports: Weakness Eyes: reports: No Symptoms HENT: reports: No Symptoms Neck: reports: No Symptoms Cardiovascular: reports: No Symptoms Respiratory: reports: No Symptoms Gastrointestinal: reports: No Symptoms Genitourinary: reports: No Symptoms Musculoskeletal: reports: Muscle Weakness Integumentary: reports: No Symptoms Neurological: reports: Confusion, Incoordination, Weakness Endocrine: reports: No Symptoms Hematology/Lymphatic: reports: No Symptoms Psychiatric: reports: Other Physical Examination Vital Signs: Vital Signs Temperature 97.9 F 08/02/16 13:57 Pulse Rate 67 08/02/16 13:57 Respiratory Rate 20 08/02/16 13:57 Blood Pressure 154/83 08/02/16 13:57 O2 Sat by Pulse Oximetry (%) 95 08/02/16 09:20 Constitutional: Yes: Mild Distress Eyes: Yes: WNL HENT: Yes: WNL Neck: Yes: WNL Cardiovascular: Yes: WNL Gastrointestinal: Yes: WNL Renal/: Yes: WNL Musculoskeletal: Yes: Muscle Weakness Extremities: Yes: WNL Edema: Yes Edema: LLE: Trace, RLE: Trace Peripheral Pulses WNL: Yes Integumentary: Yes: WNL Wound/Incision: Yes: Clean/Dry Neurological: Yes: Confusion, Weakness ...Motor Strength: LLE, RLE Psychiatric: Yes: Agitated Imaging - Results Cat Scan: Report Reviewed MRI: Report Reviewed Problem List - Problems (1) CVA (cerebral vascular accident) Code(s): I63.9 - CEREBRAL INFARCTION, UNSPECIFIED Qualifiers: CVA mechanism: unspecified Qualified Code(s): I63.9 - Cerebral infarction, unspecified (2) Confusion state Code(s): F44.89 - OTHER DISSOCIATIVE AND CONVERSION DISORDERS (3) Multiple lacunar infarcts Code(s): I63.9 - CEREBRAL INFARCTION, UNSPECIFIED (4) Abnormal chest x-ray Code(s): R93.8 - ABNORMAL FINDINGS ON DIAGNOSTIC IMAGING OF BODY STRUCTURES (5) Altered mental status Code(s): R41.82 - ALTERED MENTAL STATUS, UNSPECIFIED Qualifiers: Altered mental status type: transient alteration of awareness Qualified Code(s): R40.4 - Transient alteration of awareness Assessment/Plan ACUTE CVA RULE OUT CODE AYOUB CALLED MRI BRAIN STAT NEUROLOGY EVAL WITH NEURO CHECKS FALL PRECAUTIONS CARDIOLOGY EVAL TELEMETRY VS ICU PENDING MRI RESULT
[2016-08-02] MEDS ORDERED: ACETAMINOPHEN 325 MG TABLET (FP) PO PRN (15:28)
[2016-08-02] MEDS ORDERED: ALPRAZolam 0.25 MG TABLET PO PRN (15:28)
[2016-08-02] MEDS: FLUoxetine HCL 20 MG CAPSULE (FP) PO SCH (17:35)
[2016-08-02] MEDS: ASPIRIN COATED 81 MG TABLET.EC PO SCH (17:35)
[2016-08-02] MEDS: PANTOPRAZOLE 40 MG TABLET (FP) PO SCH (17:35)
[2016-08-02] MEDS: ATENOLOL 50 MG TABLET (FP) PO SCH (17:35)
--- NOTE | 2016-08-02 21:41 | HOSP ---
Physical Examination Vital Signs: Vital Signs Temperature 98 F 08/02/16 17:44 Pulse Rate 67 08/02/16 17:44 Respiratory Rate 20 08/02/16 17:44 Blood Pressure 130/55 08/02/16 17:44 O2 Sat by Pulse Oximetry (%) 95 08/02/16 17:44 Hospitalist Encounter Assessment: I was notified by the RN that patient was found on the floor on his knees. Fall was unwitnessed but patient denies any head trauma, headaches, or loss of consciousness. When asking the patient what happened, he reports he went to go use the telephone to speak to his but states he has left leg weakness from his previous CVA and lost his balance. Patient states he fell on his knees and did not hit his head. Otherwise, patient denies any dizziness, acute vision, changes, chest pain, shortness of breath palpitations. PE: HEENT: No signs of trauma, bruising, hematoma, or abrasions to the head. (-) hemotympanum, (-) racoon eyes, (-) brown sign HEART: regular rate and rhythm LUNGS: Clear to auscultation bilaterally, no wheezes or crackles NEURO: No focal deficits with Motor strength 5/5 throughout except for 4/5 on left lower extremity. Sensory intact throughout, reflexes 2+ throughout, Cranial nerves II-XII intact. ABDOMEN: Soft, nontender, normoactive bowel sounds, no signs of trauma. Lower Extremity: No hematoma, erythema, swelling, or brusing of bilateral knees. Patient able to flex, extend and raise bilateral legs without difficulty or pain. No pain upon palpation of bilateral knees Vitals: 139/90 mmHg, 65 HR, 98% on room air PLAN: -Continue with fall precautions -Close observation -If patient begins to experience severe headache, vision changes, nausea, vomiting, will order a Head CT Visit type - Emergency Visit Emergency Visit: No - New Patient This patient is new to me today: Yes Date on this admission: 08/03/16 - Critical Care Critical Care patient: No
[2016-08-02] MEDS: HYDROXYUREA 500 MG CAPSULE PO SCH (21:53)
[2016-08-02] MEDS: ATORVASTATIN CA 10 MG TABLET (FP) PO SCH (21:53)
[2016-08-02] MEDS: QUEtiapine FUMARATE 25 MG TABLET (FP) PO SCH (21:54)
[2016-08-03] MEDS: QUEtiapine FUMARATE 25 MG TABLET (FP) PO SCH (05:07)
[2016-08-03] MEDS: ATORVASTATIN CA 10 MG TABLET (FP) PO SCH ×2 (05:08→21:40)
[2016-08-03] MEDS: HYDROXYUREA 500 MG CAPSULE PO SCH ×3 (05:08→21:40)
[2016-08-03] MEDS ORDERED: HALOPERIDOL LACTATE 5 MG/ML IM ONE (05:30)
[2016-08-03 09:31] LABS: MCH 31.8 pg (25.7-33.7); MCHC 33.8 g/dl (32.0-35.9); MEAN CELL VOLUME 94.2 fl (80-96); MEAN PLT VOLUME 7.9 fl (7.5-11.1); PLATELET COUNT 313 K/MM3 (134-434); RDW 15.6 % (11.9-15.9); WHITE BLOOD COUNT 6.8 K/mm3 (4.0-10.0)
[2016-08-03 10:08] LABS: ALBUMIN 3.2 g/dl (3.4-5.0); CALCIUM 8.4 mg/dL (8.5-10.1); CREATININE 1.2 mg/dL (0.7-1.3)
[2016-08-03 10:18] LABS: BILIRUBIN,TOTAL 0.9 mg/dL (0.2-1.0); THYROID STIMULATING HORMONE 3.53 uIU/ml (0.358-3.74); TOT PROT 7.1 g/dl (6.4-8.2)
[2016-08-03] MEDS: ASPIRIN COATED 81 MG TABLET.EC PO SCH (10:39)
[2016-08-03] MEDS: FLUoxetine HCL 20 MG CAPSULE (FP) PO SCH (10:40)
[2016-08-03] MEDS: ALLOPURINOL 300 MG TABLET (FP) PO SCH (10:40)
[2016-08-03] MEDS: ATENOLOL 50 MG TABLET (FP) PO SCH (10:40)
[2016-08-03] MEDS: PANTOPRAZOLE 40 MG TABLET (FP) PO SCH (10:46)
--- NOTE | 2016-08-03 11:39 | PN ---
Progress Note, Physician Chief Complaint: AWAKE, ALERT X 2 DOES NOT RECALL ANY EVENTS THAT OCCURRED LAST NIGHT +PSYCHOTIC EPISODE OVERNIGHT AND PATIENT THREW FECES - Current Medication List Current Medications: Active Medications Acetaminophen (Tylenol -) 650 mg PO Q6H PRN PRN Reason: FEVER OR PAIN Allopurinol (Zyloprim -) 300 mg PO DAILY [facility] Last Admin: 08/03/16 10:40 Dose: 300 mg Alprazolam (Xanax -) 1 mg PO Q8H PRN PRN Reason: ANXIETY Aspirin (Ecotrin -) 81 mg PO DAILY [facility] Last Admin: 08/03/16 10:39 Dose: 81 mg Atenolol (Tenormin -) 50 mg PO DAILY [facility] Last Admin: 08/03/16 10:40 Dose: 50 mg Atorvastatin Calcium (Lipitor -) 10 mg PO HS [facility] Last Admin: 08/03/16 05:08 Dose: Not Given Fluoxetine HCl (Prozac -) 60 mg PO DAILY [facility] Last Admin: 08/03/16 10:40 Dose: 60 mg Hydroxyurea (Hydrea -) 500 mg PO BID [facility] Last Admin: 08/03/16 10:40 Dose: 500 mg Pantoprazole Sodium (Protonix -) 40 mg PO DAILY [facility] Last Admin: 08/03/16 10:46 Dose: 40 mg Quetiapine Fumarate (Seroquel -) 25 mg PO HS [facility] Last Admin: 08/03/16 05:07 Dose: Not Given - Objective Vital Signs: Vital Signs Temperature 98 F 08/02/16 17:44 Pulse Rate 67 08/02/16 17:44 Respiratory Rate 20 08/02/16 21:00 Blood Pressure 130/55 08/02/16 17:44 O2 Sat by Pulse Oximetry (%) 94 L 08/02/16 21:00 Constitutional: Yes: Mild Distress Eyes: Yes: WNL HENT: Yes: WNL Neck: Yes: WNL Cardiovascular: Yes: WNL Respiratory: Yes: WNL Gastrointestinal: Yes: WNL Genitourinary: Yes: WNL Musculoskeletal: Yes: WNL Extremities: Yes: WNL Edema: No Peripheral Pulses WNL: Yes Integumentary: Yes: WNL Wound/Incision: Yes: Clean/Dry Neurological: Yes: Confusion, Pre-Existing Deficit ...Motor Strength: LLE, RLE Psychiatric: Yes: Agitated Labs: CBC, BMP 08/03/16 09:15 08/03/16 09:15 INR, PTT INR 1.02 (0.82-1.09) 08/02/16 07:28 Problem List - Problems (1) CVA (cerebral vascular accident) Code(s): I63.9 - CEREBRAL INFARCTION, UNSPECIFIED Qualifiers: CVA mechanism: unspecified Qualified Code(s): I63.9 - Cerebral infarction, unspecified (2) Confusion state Code(s): F44.89 - OTHER DISSOCIATIVE AND CONVERSION DISORDERS (3) Multiple lacunar infarcts Code(s): I63.9 - CEREBRAL INFARCTION, UNSPECIFIED (4) Abnormal chest x-ray Code(s): R93.8 - ABNORMAL FINDINGS ON DIAGNOSTIC IMAGING OF BODY STRUCTURES (5) Altered mental status Code(s): R41.82 - ALTERED MENTAL STATUS, UNSPECIFIED Qualifiers: Altered mental status type: transient alteration of awareness Qualified Code(s): R40.4 - Transient alteration of awareness Assessment/Plan MRI BRAIN NO ACUTE CVA NEUROLOGY EVAL PSYCHIATRY CONSULT [place] [facility] FOR PATIENT SAFETY MATTHEW BURTON
[2016-08-03] MEDS ORDERED: HALOPERIDOL LACTATE 5 MG/ML IM PRN (11:40)
--- NOTE | 2016-08-03 13:09 | CONSULT ---
Consult - text type - Consultation Consultation Note: 80 yr old white male admitted with acute confusion agitation and bizzare behaviour. patient apparantly had TIA. History of depression and anxiety. MS: alert, oriented to name and place. Some confusion still persists. appears less dispoganized and Psychotic this am. REc: Start [id number] po hs for psychotic behaviour, Continue with Prozac and xanax as ordered.
[2016-08-03] MEDS: ALPRAZolam 2 MG TABLET PO PRN (21:40)
[2016-08-03] MEDS ORDERED: OLANZapine 5 MG TABLET PO SCH (22:00)
--- NOTE | 2016-08-03 23:39 | EKG ---
Test Reason : Blood Pressure : / mmHG Vent. Rate : 059 BPM Atrial Rate : 059 BPM P-R Int : 162 ms QRS Dur : 098 ms QT Int : 444 ms P-R-T Axes : 030 -34 093 degrees QTc Int : 439 ms SINUS BRADYCARDIA WITH OCCASIONAL PREMATURE VENTRICULAR COMPLEXES LEFT AXIS DEVIATION NONSPECIFIC T WAVE ABNORMALITY ABNORMAL ECG WHEN COMPARED WITH ECG OF 14-JUL-2016 10:24, PREMATURE VENTRICULAR COMPLEXES ARE NOW PRESENT Confirmed by BEATRICE ÁLVAREZ, RONDA ([id number]) on 08/03/2016 11:39:05 PM Referred By: Confirmed By:RONDA BARRON MD
[2016-08-04 07:07] LABS: MCHC 33.8 g/dl (32.0-35.9); MEAN CELL VOLUME 94.6 fl (80-96); MEAN PLT VOLUME 7.8 fl (7.5-11.1); PLATELET COUNT 289 K/MM3 (134-434); RDW 15.5 % (11.9-15.9); WHITE BLOOD COUNT 6.6 K/mm3 (4.0-10.0)
--- NOTE | 2016-08-04 08:00 | PN ---
Progress Note, Physician History of Present Illness: IN BED NO SOB OR CP PERIODS OF CONFUSION [place] IN PLACE - Current Medication List Current Medications: Active Medications Acetaminophen (Tylenol -) 650 mg PO Q6H PRN PRN Reason: FEVER OR PAIN Last Admin: 08/03/16 14:51 Dose: 650 mg Allopurinol (Zyloprim -) 300 mg PO DAILY [facility] Last Admin: 08/03/16 10:40 Dose: 300 mg Alprazolam (Xanax -) 1 mg PO Q12H PRN PRN Reason: ANXIETY Last Admin: 08/03/16 21:40 Dose: 1 mg Aspirin (Ecotrin -) 81 mg PO DAILY [facility] Last Admin: 08/03/16 10:39 Dose: 81 mg Atenolol (Tenormin -) 50 mg PO DAILY [facility] Last Admin: 08/03/16 10:40 Dose: 50 mg Atorvastatin Calcium (Lipitor -) 10 mg PO HS [facility] Last Admin: 08/03/16 21:40 Dose: 10 mg Fluoxetine HCl (Prozac -) 60 mg PO DAILY [facility] Last Admin: 08/03/16 10:40 Dose: 60 mg Haloperidol (Haldol Injection (Fast Acting) -) 2 mg IM Q4H PRN PRN Reason: AGITATION Hydroxyurea (Hydrea -) 500 mg PO BID [facility] Last Admin: 08/03/16 21:40 Dose: 500 mg Olanzapine (Zyprexa -) 5 mg PO HS [facility] Last Admin: 08/03/16 21:40 Dose: 5 mg Pantoprazole Sodium (Protonix -) 40 mg PO DAILY [facility] Last Admin: 08/03/16 10:46 Dose: 40 mg - Objective Vital Signs: Vital Signs Temperature 97.6 F 08/04/16 06:00 Pulse Rate 56 L 08/04/16 06:00 Respiratory Rate 20 08/04/16 06:00 Blood Pressure 154/82 08/04/16 06:00 O2 Sat by Pulse Oximetry (%) 94 L 08/03/16 21:00 Cardiovascular: Yes: S1, S2 Respiratory: Yes: Regular, CTA Bilaterally Gastrointestinal: Yes: Normal Bowel Sounds, Soft Labs: CBC, BMP 08/04/16 05:35 INR, PTT INR 1.02 (0.82-1.09) 08/02/16 07:28 Problem List - Problems (1) CVA (cerebral vascular accident) Assessment/Plan: NEW EVIDENCE OF NEW EVENT NEURO ON CASE PT Code(s): I63.9 - CEREBRAL INFARCTION, UNSPECIFIED Qualifiers: CVA mechanism: unspecified Qualified Code(s): I63.9 - Cerebral infarction, unspecified (2) Confusion state Assessment/Plan: MONITOR Code(s): F44.89 - OTHER DISSOCIATIVE AND CONVERSION DISORDERS (3) Anxiety and depression Assessment/Plan: PSYCH ON MEDS Code(s): F41.9 - ANXIETY DISORDER, UNSPECIFIED F32.9 - MAJOR DEPRESSIVE DISORDER, SINGLE EPISODE, UNSPECIFIED (4) Frequent falls Assessment/Plan: PT Code(s): R29.6 - REPEATED FALLS (5) HTN (hypertension) Code(s): I10 - ESSENTIAL (PRIMARY) HYPERTENSION Qualifiers: Hypertension type: essential hypertension Qualified Code(s): I10 - Essential (primary) hypertension (6) Dyspnea Assessment/Plan: PULM CONSULT Code(s): R06.00 - DYSPNEA, UNSPECIFIED
[2016-08-04 08:08] LABS: ALBUMIN 3.2 g/dl (3.4-5.0); BILIRUBIN,TOTAL 0.7 mg/dL (0.2-1.0); CALCIUM 8.8 mg/dL (8.5-10.1); CREATININE 1.4 mg/dL (0.7-1.3); TOT PROT 6.6 g/dl (6.4-8.2)
[2016-08-04] MEDS: ALPRAZolam 2 MG TABLET PO PRN (10:00)
[2016-08-04] MEDS: FLUoxetine HCL 20 MG CAPSULE (FP) PO SCH (10:04)
[2016-08-04] MEDS: PANTOPRAZOLE 40 MG TABLET (FP) PO SCH (10:04)
[2016-08-04] MEDS: ALLOPURINOL 300 MG TABLET (FP) PO SCH (10:04)
[2016-08-04] MEDS: ASPIRIN COATED 81 MG TABLET.EC PO SCH (10:05)
[2016-08-04] MEDS: HYDROXYUREA 500 MG CAPSULE PO SCH ×2 (10:05→20:08)
[2016-08-04] MEDS: ATENOLOL 50 MG TABLET (FP) PO SCH ×2 (10:06→18:12)
--- NOTE | 2016-08-04 12:01 | PN ---
Progress Note (short form) - Note Progress Note: - History of Present Illness History of Present Illness: 80 year old man with history of prior stroke, CAD, htn, hypercholesterolemia, gout, anxiety, GI bleed, depression, presented to ED with history of acute confusion. On arrival, no head trauma, seizure like activity, recent illness or fever. Seen by Dr Bonilla yesterday who felt his symptoms could be related to toxic metabolic encephalopathy. 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 Cardio/Vascular: Yes: HTN, Hyperlipdemia Psych: Yes: Anxiety, Depression - Alcohol/Substance Use Hx Alcohol Use: No - Smoking History Smoking history: Never smoked Have you smoked in the past 12 months: No Aproximately how many cigarettes per day: 0 - Social History Usual Living Arrangement: With Spouse Home Medications - Allergies Allergies/Adverse Reactions: Allergies Allergy/AdvReac Type Severity Reaction Status Date / Time Penicillins Allergy Mild Nausea Verified 08/02/16 06:20 - Home Medications Home Medications: Ambulatory Orders Allopurinol [Zyloprim -] 300 mg PO DAILY 09/24/14 Atorvastatin Ca [Lipitor] 20 mg PO HS 09/24/14 Pantoprazole Sodium [Protonix -] 40 mg PO DAILY #14 tablet.ec 07/22/16 Quetiapine Fumarate [Seroquel -] 25 mg PO HS #20 tablet 07/22/16 Alprazolam [Xanax] 1 mg PO QID 08/02/16 Aspirin [ASA -] 81 mg PO DAILY 08/02/16 Atenolol [Tenormin] 50 mg PO DAILY 08/02/16 Fluoxetine HCl Liquid [Prozac 20mg/5mL Oral Solution -] 60 mg PO DAILY 08/02/16 Hydroxyurea [Hydrea 500Mg Capsule -] 500 mg PO ASDIR 08/02/16 Family Disease History - Family Disease History Family History: Unable to Obtain Review of Systems - Review of Systems Constitutional: reports: No Symptoms Eyes: reports: No Symptoms Physical Exam-Neuro Constitutional: Yes: Well Nourished Neck: Yes: WNL Cardiovascular: Yes: WNL - Neuro Exam Level Of Consciousness: Oriented to name, not age or place Eyes: Yes: PERRLA Speech: WNL Cranial Nerves II-XII Intact: Yes Gag: Present DTR's: 1+ Left Bicep, 1+ Right Bicep, 1+ Left Brachioradialis, 1+ Right Brachioradialis Response to light touch: normal Motor Strength: 4/5: Left Arm, Right Arm, Left Leg, Right Leg Imaging - Results Cat Scan: Image Reviewed Problem List - Problems (1) CVA (cerebral vascular accident) Code(s): I63.9 - CEREBRAL INFARCTION, UNSPECIFIED Qualifiers: CVA mechanism: unspecified Qualified Code(s): I63.9 - Cerebral infarction, unspecified (2) Confusion state Code(s): F44.89 - OTHER DISSOCIATIVE AND CONVERSION DISORDERS Assessment/Plan 80 year old man with history of prior stroke, CAD, htn, hypercholesterolemia, gout, anxiety, GI bleed, depression, presented to ED with history of acute confusion. On arrival, no head trauma, seizure like activity, recent illness or fever. Seen by Dr Bonilla yesterday who felt his symptoms could be related to toxic metabolic encephalopathy. Still appears confused, need to clarify patient's baseline. Remainder of exam non focal MRI brain complete shows no evidence of acute infarct Laboratory workup reveals elevated ammonia Metabolic encephalopathy? Recommend EEG Full aspirin Follow up cultures Supportive care
[2016-08-04] MEDS ORDERED: ALBUTEROL SO4 0.083% IH SOL 2.5 MG/3 ML VIAL.NEB. NEB PRN (12:23)
--- NOTE | 2016-08-04 12:23 | PN ---
Progress Note (short form) - Note Progress Note: PULMONARY CONSULTATION DICTATED 08/04/16 IMP CHEST CONGESTION ? ASPIRATION,? URI ALTERED MENTAL STATUS LIKELY TOXIC METABOLIC ? TIA S/P CVA HTN RECENT ASPIRATION PNEUMONIA GOUT PLAN NASAL O2 INHALED BRONCHODILATORS F/U CHEST X-RAY MONITOR LYTES NEURO CHECKS DR PRITCHARD Problem List - Problems (1) CVA (cerebral vascular accident) Code(s): I63.9 - CEREBRAL INFARCTION, UNSPECIFIED Qualifiers: CVA mechanism: unspecified Qualified Code(s): I63.9 - Cerebral infarction, unspecified (2) Confusion state Code(s): F44.89 - OTHER DISSOCIATIVE AND CONVERSION DISORDERS (3) Dyspnea Code(s): R06.00 - DYSPNEA, UNSPECIFIED (4) Multiple lacunar infarcts Code(s): I63.9 - CEREBRAL INFARCTION, UNSPECIFIED (5) Altered mental status Code(s): R41.82 - ALTERED MENTAL STATUS, UNSPECIFIED Qualifiers: Altered mental status type: transient alteration of awareness Qualified Code(s): R40.4 - Transient alteration of awareness (6) Aspiration pneumonia Code(s): J69.0 - PNEUMONITIS DUE TO INHALATION OF FOOD AND VOMIT (7) HLD (hyperlipidemia) Code(s): E78.5 - HYPERLIPIDEMIA, UNSPECIFIED Qualifiers: Hyperlipidemia type: pure hypercholesterolemia Qualified Code(s): E78.0 - Pure hypercholesterolemia (8) HTN (hypertension) Code(s): I10 - ESSENTIAL (PRIMARY) HYPERTENSION Qualifiers: Hypertension type: essential hypertension Qualified Code(s): I10 - Essential (primary) hypertension
--- NOTE | 2016-08-04 18:43 | CONS ---
DATE OF CONSULTATION: 08/04/2016 PULMONARY CONSULTATION REFERRING PHYSICIAN: Jose De Leon M.D. HISTORY OF PRESENT ILLNESS: The patient is a 80-year-old white male with a past medical history of CVA, hypertension, hypercholesterolemia, gout, TIA, anxiety, history of GI bleed, depression, recently hospitalized at [facility] secondary to likely aspiration pneumonia, treated with antibiotic therapy, was discharged home on p.o. antibiotics. Was doing well until day prior to admission when he started developing some mild confusion as well as increasing chest congestion. Day of admission, he started noticing increasing congestion, wheezing, and gurgling sound, at which time the brought patient to the hospital, to the ER. In the emergency room, had chest x-ray performed, showed no evidence of acute pathology. He was evaluated by Dr. Frazier for cardiology consultation. In the emergency room, he was treated with inhaled bronchodilators. He was transferred to the floor for further management. Patient denies any history of tobacco use, there is no history. 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 Denies a history of COPD, asthma in the past. There is no history of DVT or PE in the past. As per patient's , apparently the evening prior to admission the patient had no fever but had sweats and some chills. PAST MEDICAL HISTORY: Again, includes CVA, ASHD, hypertension, hypercholesterolemia, gout, anxiety, TIA, GI bleed, and depression. REVIEW OF SYSTEMS: No orthopnea. No PND. No chest pain. No palpitations. Currently no shortness of breath. Positive mild cough. No fevers, no chills. CURRENT MEDICATIONS: Include Tylenol, Prozac, Zyloprim, Hydrea, Haldol, Zyprexa, Xanax, Tenormin, Lipitor, Ecotrin, Protonix. PHYSICAL EXAMINATION: General: The patient is an elderly while male, well-developed, well-nourished, awake, alert, in no acute distress. Vital signs: He is afebrile. Heart rate is 54. Blood pressure 104/62, respiratory rate 20, O2 saturation is 95% on room air. HEENT: Head is normocephalic, atraumatic. Neck: Supple. Heart: Regular. S1, S2. Chest: A few crackles at the bases. Abdomen: Soft. Bowel sounds positive. Extremities: No cyanosis, edema. LABORATORY: WBC is 6.6, hemoglobin 14.4, hematocrit 42.7, platelet count 289,000. No blood gases. BUN 20, creatinine 1.4. Chest x-ray reveals of right hemidiaphragm, but no acute infiltrates or effusions. CT scan of the head, no acute pathology. Brain MRI revealed the patient has lateral ventricles, mild loss of volume both cerebral hemispheres, no evidence of acute intracerebral hemorrhage with subdural collection, no evidence of acute infarction. IMPRESSION: 1. Chest congestion, shortness of breath, possible aspiration. 2. Status post cerebrovascular accident. 3. Altered mental status. Possible toxic metabolic. 4. History of hypertension. 5. History of recent aspiration pneumonia. 6. Gout. PLAN: Inhaled bronchodilator, supplemental O2. Continue to monitor electrolytes, neurological workup as per neurology. Monitor blood pressure. Monitor mental status. EDEL PRITCHARD M.D. [id number]
[2016-08-04] MEDS: ALPRAZolam 2 MG TABLET PO SCH (20:08)
[2016-08-04] MEDS: ATORVASTATIN CA 10 MG TABLET (FP) PO SCH (20:09)
[2016-08-04] MEDS ORDERED: OLANZapine 5 MG TABLET PO SCH ×2 (20:15→22:00)
[2016-08-04] MEDS ORDERED: ALPRAZolam 2 MG TABLET PO SCH (22:00)
[2016-08-05 00:10] LABS: ALDOLASE 5.7 U/L (3.3-10.3)
--- NOTE | 2016-08-05 08:03 | DS ---
Physical Examination Vital Signs: Vital Signs Temperature 98 F 08/05/16 03:53 Pulse Rate 75 08/05/16 03:53 Respiratory Rate 18 08/05/16 03:53 Blood Pressure 175/76 08/05/16 03:53 O2 Sat by Pulse Oximetry (%) 95 08/04/16 20:17 Cardiovascular: Yes: Regular Rate and Rhythm Respiratory: Yes: Regular, CTA Bilaterally Gastrointestinal: Yes: Normal Bowel Sounds, Soft Neurological: Yes: Alert, Confusion, Pre-Existing Deficit Labs: CBC, BMP 08/04/16 05:35 08/04/16 05:35 Discharge Summary Reason For Visit: STROKE Current Active Problems CVA (cerebral vascular accident) (Acute) Confusion state (Acute) Dyspnea (Acute) Multiple lacunar infarcts (Acute) Hospital Course: The patient is a 80 year old male, with a significant past medical history of CVA, HTN, hypercholesterolemia, gout, anxiety, TIA, GI bleed, and depression, who presents to the emergency department with complaining of difficulty breathing. As per the patient was wheezing during his sleep and she had difficulty waking him up. Patient also seems more confused and his speech is more slurred than usual. She also noted that patient was recently diagnosed with aspiration pneumonia and was on course of abx that he finished. He denies chest pain, headache and dizziness. He denies fever, chills, nausea, vomit, diarrhea and constipation. He denies dysuria, frequency, urgency and hematuria. 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 Cardiovascular: Yes: HTN, Hyperlipdemia Psych: Yes: Anxiety, Depression Problems (1) CVA (cerebral vascular accident) Assessment/Plan: NEW EVIDENCE OF NEW EVENT NEURO ON CASE PT Code(s): I63.9 - CEREBRAL INFARCTION, UNSPECIFIED Qualifiers: CVA mechanism: unspecified Qualified Code(s): I63.9 - Cerebral infarction, unspecified (2) Confusion state Assessment/Plan: MONITOR Code(s): F44.89 - OTHER DISSOCIATIVE AND CONVERSION DISORDERS (3) Anxiety and depression Assessment/Plan: PSYCH ON MEDS Code(s): F41.9 - ANXIETY DISORDER, UNSPECIFIED F32.9 - MAJOR DEPRESSIVE DISORDER, SINGLE EPISODE, UNSPECIFIED (4) Frequent falls Assessment/Plan: PT Code(s): R29.6 - REPEATED FALLS (5) HTN (hypertension) Code(s): I10 - ESSENTIAL (PRIMARY) HYPERTENSION Qualifiers: Hypertension type: essential hypertension Qualified Code(s): I10 - Essential (primary) hypertension (6) Dyspnea Assessment/Plan: PULM CONSULT Code(s): R06.00 - DYSPNEA, UNSPECIFIED Condition: Improved - Instructions Referrals: Jose De Leon MD [Primary Care Provider] - Disposition: HOME - Home Medications Comprehensive Discharge Medication List: Ambulatory Orders Allopurinol [Zyloprim -] 300 mg PO DAILY 09/24/14 Atorvastatin Ca [Lipitor] 20 mg PO HS 09/24/14 Pantoprazole Sodium [Protonix -] 40 mg PO DAILY #14 tablet.ec 07/22/16 Quetiapine Fumarate [Seroquel -] 25 mg PO HS #20 tablet 07/22/16 Alprazolam [Xanax] 1 mg PO QID 08/02/16 Aspirin [ASA -] 81 mg PO DAILY 08/02/16 Atenolol [Tenormin] 50 mg PO DAILY 08/02/16 Fluoxetine HCl Liquid [Prozac 20mg/5mL Oral Solution -] 60 mg PO DAILY 08/02/16 Hydroxyurea [Hydrea 500Mg Capsule -] 500 mg PO ASDIR 08/02/16 Alprazolam [Xanax] 1 mg PO BID tablet MDD 2 08/05/16 Olanzapine [Zyprexa -] 10 mg PO HS #30 tablet 08/05/16
[2016-08-05 08:38] LABS: BASOPHIL 0.8 % (0-2.0); EOSINOPHIL 5.9 % (0-4.5); MCH 31.5 pg (25.7-33.7); MCHC 33.1 g/dl (32.0-35.9); MEAN CELL VOLUME 95.2 fl (80-96); MEAN PLT VOLUME 7.4 fl (7.5-11.1); NEUTROPHILS 44.8 % (42.8-82.8); PLATELET COUNT 291 K/MM3 (134-434); RDW 15.8 % (11.9-15.9); WHITE BLOOD COUNT 5.7 K/mm3 (4.0-10.0)
[2016-08-05 09:02] LABS: CALCIUM 8.9 mg/dL (8.5-10.1); CREATININE 1.5 mg/dL (0.7-1.3)
[2016-08-05] MEDS: ALPRAZolam 2 MG TABLET PO SCH ×2 (10:37→22:03)
[2016-08-05] MEDS: ATENOLOL 50 MG TABLET (FP) PO SCH (10:38)
[2016-08-05] MEDS: FLUoxetine HCL 20 MG CAPSULE (FP) PO SCH (10:38)
[2016-08-05] MEDS: ASPIRIN COATED 81 MG TABLET.EC PO SCH (10:39)
[2016-08-05] MEDS: PANTOPRAZOLE 40 MG TABLET (FP) PO SCH (10:39)
[2016-08-05] MEDS: ALLOPURINOL 300 MG TABLET (FP) PO SCH (10:43)
--- NOTE | 2016-08-05 10:59 | PN ---
Progress Note, Physician History of Present Illness: PULMONARY DROWSY,NAD,-CONGESTION - Current Medication List Current Medications: Active Medications Acetaminophen (Tylenol -) 650 mg PO Q6H PRN PRN Reason: FEVER OR PAIN Last Admin: 08/03/16 14:51 Dose: 650 mg Albuterol Sulfate (Ventolin 0.083% Nebulizer Soln -) 1 amp NEB Q4H PRN PRN Reason: SHORT OF BREATH/WHEEZING Allopurinol (Zyloprim -) 300 mg PO DAILY [facility] Last Admin: 08/05/16 10:43 Dose: 300 mg Alprazolam (Xanax -) 1 mg PO BID [facility] Last Admin: 08/05/16 10:37 Dose: Not Given Aspirin (Ecotrin -) 81 mg PO DAILY [facility] Last Admin: 08/05/16 10:39 Dose: 81 mg Atenolol (Tenormin -) 50 mg PO DAILY [facility] Last Admin: 08/05/16 10:38 Dose: Not Given Atorvastatin Calcium (Lipitor -) 10 mg PO HS [facility] Last Admin: 08/04/16 20:09 Dose: 10 mg Fluoxetine HCl (Prozac -) 60 mg PO DAILY [facility] Last Admin: 08/05/16 10:38 Dose: Not Given Olanzapine (Zyprexa -) 10 mg PO [facility] Pantoprazole Sodium (Protonix -) 40 mg PO DAILY [facility] Last Admin: 08/05/16 10:39 Dose: 40 mg - Objective Vital Signs: Vital Signs Temperature 97.9 F 08/05/16 08:08 Pulse Rate 59 L 08/05/16 08:08 Respiratory Rate 18 08/05/16 08:08 Blood Pressure 164/94 08/05/16 08:08 O2 Sat by Pulse Oximetry (%) 95 08/04/16 20:17 Constitutional: Yes: Well Nourished, Other (DROWSY) Eyes: Yes: WNL HENT: Yes: WNL Neck: Yes: WNL Cardiovascular: Yes: Regular Rate and Rhythm, S1, S2 Respiratory: Yes: Diminished Gastrointestinal: Yes: WNL Extremities: Yes: WNL Edema: No Labs: CBC, BMP 08/05/16 08:15 08/05/16 08:15 INR, PTT INR 1.02 (0.82-1.09) 08/02/16 07:28 Problem List - Problems (1) CVA (cerebral vascular accident) Code(s): I63.9 - CEREBRAL INFARCTION, UNSPECIFIED Qualifiers: CVA mechanism: unspecified Qualified Code(s): I63.9 - Cerebral infarction, unspecified (2) Confusion state Code(s): F44.89 - OTHER DISSOCIATIVE AND CONVERSION DISORDERS (3) Dyspnea Code(s): R06.00 - DYSPNEA, UNSPECIFIED (4) Multiple lacunar infarcts Code(s): I63.9 - CEREBRAL INFARCTION, UNSPECIFIED (5) Altered mental status Code(s): R41.82 - ALTERED MENTAL STATUS, UNSPECIFIED Qualifiers: Altered mental status type: transient alteration of awareness Qualified Code(s): R40.4 - Transient alteration of awareness (6) Aspiration pneumonia Code(s): J69.0 - PNEUMONITIS DUE TO INHALATION OF FOOD AND VOMIT (7) HLD (hyperlipidemia) Code(s): E78.5 - HYPERLIPIDEMIA, UNSPECIFIED Qualifiers: Hyperlipidemia type: pure hypercholesterolemia Qualified Code(s): E78.0 - Pure hypercholesterolemia (8) HTN (hypertension) Code(s): I10 - ESSENTIAL (PRIMARY) HYPERTENSION Qualifiers: Hypertension type: essential hypertension Qualified Code(s): I10 - Essential (primary) hypertension Assessment/Plan IMP CHEST CONGESTION IMPROVED ALTERED MENTAL STATUS LIKELY TOXIC METABOLIC ? TIA S/P CVA HTN RECENT ASPIRATION PNEUMONIA GOUT PLAN NASAL O2 INHALED BRONCHODILATORS MONITOR LYTES NEURO CHECKS DR PRITCHARD Problem List - Problems (1) CVA (cerebral vascular accident) Code(s): I63.9 - CEREBRAL INFARCTION, UNSPECIFIED Qualifiers: CVA mechanism: unspecified Qualified Code(s): I63.9 - Cerebral infarction, unspecified (2) Confusion state Code(s): F44.89 - OTHER DISSOCIATIVE AND CONVERSION DISORDERS (3) Dyspnea Code(s): R06.00 - DYSPNEA, UNSPECIFIED (4) Multiple lacunar infarcts Code(s): I63.9 - CEREBRAL INFARCTION, UNSPECIFIED (5) Altered mental status Code(s): R41.82 - ALTERED MENTAL STATUS, UNSPECIFIED Qualifiers: Altered mental status type: transient alteration of awareness Qualified Code(s): R40.4 - Transient alteration of awareness (6) Aspiration pneumonia Code(s): J69.0 - PNEUMONITIS DUE TO INHALATION OF FOOD AND VOMIT (7) HLD (hyperlipidemia) Code(s): E78.5 - HYPERLIPIDEMIA, UNSPECIFIED Qualifiers: Hyperlipidemia type: pure hypercholesterolemia Qualified Code(s): E78.0 - Pure hypercholesterolemia (8) HTN (hypertension) Code(s): I10 - ESSENTIAL (PRIMARY) HYPERTENSION Qualifiers: Hypertension type: essential hypertension Qualified Code(s): I10 - Essential (primary) hypertension
--- NOTE | 2016-08-05 20:58 | CONSULT ---
Consult Consult Specialty:: Oncology-hematology Referred by:: Dr. De Leon Reason for Consultation:: Abnormal hemogram - History of Present Illness Chief Complaint: Altered mental status on admission. Initial lab with eosinophilia and basophilia. 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 Cardio/Vascular: Yes: HTN, Hyperlipdemia Pulmonary: Yes: Asthma Psych: Yes: Anxiety, Depression - Alcohol/Substance Use Hx Alcohol Use: No - Smoking History Smoking history: Never smoked Have you smoked in the past 12 months: No Aproximately how many cigarettes per day: 0 - Social History Usual Living Arrangement: With Spouse Home Medications - Allergies Allergies/Adverse Reactions: Allergies Allergy/AdvReac Type Severity Reaction Status Date / Time Penicillins Allergy Mild Nausea Verified 08/02/16 06:20 - Home Medications Home Medications: Ambulatory Orders Allopurinol [Zyloprim -] 300 mg PO DAILY 09/24/14 Atorvastatin Ca [Lipitor] 20 mg PO HS 09/24/14 Pantoprazole Sodium [Protonix -] 40 mg PO DAILY #14 tablet.ec 07/22/16 Quetiapine Fumarate [Seroquel -] 25 mg PO HS #20 tablet 07/22/16 Alprazolam [Xanax] 1 mg PO QID 08/02/16 Aspirin [ASA -] 81 mg PO DAILY 08/02/16 Atenolol [Tenormin] 50 mg PO DAILY 08/02/16 Fluoxetine HCl Liquid [Prozac 20mg/5mL Oral Solution -] 60 mg PO DAILY 08/02/16 Hydroxyurea [Hydrea 500Mg Capsule -] 500 mg PO ASDIR 08/02/16 Alprazolam [Xanax] 1 mg PO BID tablet MDD 2 08/05/16 Olanzapine [Zyprexa -] 10 mg PO HS #30 tablet 08/05/16 Family Disease History - Family Disease History Family Disease History: Heart Disease: Mother (CHF) Other Family History: No history of ca or blood dyscrasia in family Review of Systems - Review of Systems Constitutional: denies: Loss of Appetite, Night Sweats, Unintentional Wgt. Loss Eyes: denies: Blind Spots, Double Vision HENT: reports: Difficult Swallowing. denies: Epistaxis, Other Neck: denies: Decreased ROM, Lumps, Pain on Movement Cardiovascular: denies: Shortness of Breath Respiratory: denies: Hemoptysis, SOB, SOB on Exertion, Wheezing Gastrointestinal: denies: Abdominal Pain, Diarrhea, Dysphagia, Melena, Nausea, Vomiting Genitourinary: denies: Dysuria, Flank Pain, Hematuria Musculoskeletal: denies: Extremity Pain, Joint Swelling Integumentary: denies: Bruising Neurological: reports: Confusion, Pre-Existing Deficit, Weakness Endocrine: reports: No Symptoms Hematology/Lymphatic: reports: No Symptoms Psychiatric: reports: No Symptoms Physical Exam Vital Signs: Vital Signs Temperature 97.3 F L 08/05/16 17:00 Pulse Rate 57 L 08/05/16 17:00 Respiratory Rate 20 08/05/16 17:00 Blood Pressure 127/76 08/05/16 17:00 O2 Sat by Pulse Oximetry (%) 96 08/05/16 09:00 Constitutional: Yes: No Distress Eyes: Yes: PERRL. No: Diplopia, Ptosis, Sclera Icterus HENT: Yes: Atraumatic, Normocephalic. No: Hoarseness, Nasal Congestion, Tonsillar Exudate Neck: Yes: Supple, Trachea Midline. No: Lymphadenopathy, Thyromegaly Cardiovascular: Yes: Regular Rate and Rhythm Respiratory: Yes: CTA Bilaterally Gastrointestinal: Yes: Normal Bowel Sounds, Soft. No: Hepatomegaly, Splenomegaly Renal/: No: CVA Tenderness - Left, CVA Tenderness - Right Musculoskeletal: No: Muscle Pain, Muscle Weakness Extremities: No: Calf Tenderness Edema: No Integumentary: No: Jaundice Neurological: Yes: Confusion, Unresponsive Psychiatric: Yes: WNL Labs: CBC, BMP 08/05/16 08:15 08/05/16 08:15 Imaging - Results X-ray: Report Reviewed Problem List - Problems (1) Confusion state Code(s): F44.89 - OTHER DISSOCIATIVE AND CONVERSION DISORDERS (2) Multiple lacunar infarcts Code(s): I63.9 - CEREBRAL INFARCTION, UNSPECIFIED (3) Altered mental status Code(s): R41.82 - ALTERED MENTAL STATUS, UNSPECIFIED Qualifiers: Altered mental status type: transient alteration of awareness Qualified Code(s): R40.4 - Transient alteration of awareness (4) Anxiety and depression Code(s): F41.9 - ANXIETY DISORDER, UNSPECIFIED F32.9 - MAJOR DEPRESSIVE DISORDER, SINGLE EPISODE, UNSPECIFIED (5) HLD (hyperlipidemia) Code(s): E78.5 - HYPERLIPIDEMIA, UNSPECIFIED Qualifiers: Hyperlipidemia type: pure hypercholesterolemia Qualified Code(s): E78.0 - Pure hypercholesterolemia (6) Stroke determined by clinical assessment Code(s): I63.9 - CEREBRAL INFARCTION, UNSPECIFIED (7) Basophilia Assessment/Plan: Initial CBC with 4% basophilia and 9% eosinophilia. This raise concern for underlying Myeloproliferative disorder. Will obtain PRADEEP-2 mutation and BCR-ABL by PCR. Code(s): D72.824 - BASOPHILIA (8) Hyperglobulinemia Assessment/Plan: Reverse a/g ratio. To evaluate for protein studies. Code(s): R77.1 - ABNORMALITY OF GLOBULIN
[2016-08-05] MEDS ORDERED: OLANZapine 5 MG TABLET PO SCH (22:00)
[2016-08-05] MEDS: ATORVASTATIN CA 10 MG TABLET (FP) PO SCH (22:03)
[2016-08-06 00:07] LABS: A/G RATIO 0.8 (0.7-1.7); GLOBULIN, TOTAL 3.7 g/dL (2.2-3.9); M-SPIKE Not Observed g/dL (Not Observed); MYOGLOBIN SERUM 108 ng/mL (28-72); TOTAL PROTEIN 6.7 g/dL (6.0-8.5)
--- NOTE | 2016-08-06 09:35 | DS ---
Physical Examination Vital Signs: Vital Signs Temperature 97.8 F 08/06/16 06:00 Pulse Rate 60 08/06/16 06:00 Respiratory Rate 20 08/06/16 06:00 Blood Pressure 125/89 08/06/16 06:00 O2 Sat by Pulse Oximetry (%) 95 08/05/16 21:00 Findings/Remarks: comfortable in bed eating bk Neck: Yes: Supple Cardiovascular: Yes: Regular Rate and Rhythm Respiratory: Yes: Regular, CTA Bilaterally Gastrointestinal: Yes: Normal Bowel Sounds, Soft Neurological: Yes: Alert, Oriented (with periods of confusion) Labs: CBC, BMP 08/05/16 08:15 Discharge Summary Reason For Visit: STROKE Current Active Problems Basophilia (Acute) CVA (cerebral vascular accident) (Acute) Confusion state (Acute) Dyspnea (Acute) Hyperglobulinemia (Acute) Multiple lacunar infarcts (Acute) Hospital Course: The patient is a 80 year old male, with a significant past medical history of CVA, HTN, hypercholesterolemia, gout, anxiety, TIA, GI bleed, and depression, who presents to the emergency department with complaining of difficulty breathing. As per the patient was wheezing during his sleep and she had difficulty waking him up. Patient also seems more confused and his speech is more slurred than usual. She also noted that patient was recently diagnosed with aspiration pneumonia and was on course of abx that he finished. He denies chest pain, headache and dizziness. He denies fever, chills, nausea, vomit, diarrhea and constipation. He denies dysuria, frequency, urgency and hematuria. 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 Cardiovascular: Yes: HTN, Hyperlipdemia Psych: Yes: Anxiety, Depression Problems (1) CVA (cerebral vascular accident) Assessment/Plan: No EVIDENCE OF NEW EVENT NEURO ON CASE PT Code(s): I63.9 - CEREBRAL INFARCTION, UNSPECIFIED Qualifiers: CVA mechanism: unspecified Qualified Code(s): I63.9 - Cerebral infarction, unspecified (2) Confusion state Assessment/Plan: MONITOR Code(s): F44.89 - OTHER DISSOCIATIVE AND CONVERSION DISORDERS (3) Anxiety and depression Assessment/Plan: PSYCH ON MEDS Code(s): F41.9 - ANXIETY DISORDER, UNSPECIFIED F32.9 - MAJOR DEPRESSIVE DISORDER, SINGLE EPISODE, UNSPECIFIED (4) Frequent falls Assessment/Plan: PT Code(s): R29.6 - REPEATED FALLS (5) HTN (hypertension) Code(s): I10 - ESSENTIAL (PRIMARY) HYPERTENSION Qualifiers: Hypertension type: essential hypertension Qualified Code(s): I10 - Essential (primary) hypertension (6) Dyspnea Assessment/Plan: PULM CONSULT Code(s): R06.00 - DYSPNEA, UNSPECIFIED Condition: Improved - Instructions Referrals: Jose De Leon MD [Primary Care Provider] - Disposition: HOME - Home Medications Comprehensive Discharge Medication List: Ambulatory Orders Allopurinol [Zyloprim -] 300 mg PO DAILY 09/24/14 Atorvastatin Ca [Lipitor] 20 mg PO HS 09/24/14 Pantoprazole Sodium [Protonix -] 40 mg PO DAILY #14 tablet.ec 07/22/16 Quetiapine Fumarate [Seroquel -] 25 mg PO HS #20 tablet 07/22/16 Alprazolam [Xanax] 1 mg PO QID 08/02/16 Aspirin [ASA -] 81 mg PO DAILY 08/02/16 Atenolol [Tenormin] 50 mg PO DAILY 08/02/16 Fluoxetine HCl Liquid [Prozac 20mg/5mL Oral Solution -] 60 mg PO DAILY 08/02/16 Hydroxyurea [Hydrea 500Mg Capsule -] 500 mg PO ASDIR 08/02/16 Alprazolam [Xanax] 1 mg PO BID tablet MDD 2 08/05/16 Olanzapine [Zyprexa -] 10 mg PO HS #30 tablet 08/05/16
[2016-08-06 09:37] LABS: CALCIUM 8.3 mg/dL (8.5-10.1)
[2016-08-06 09:38] LABS: CREATININE 1.4 mg/dL (0.7-1.3)
[2016-08-06] MEDS: ATENOLOL 50 MG TABLET (FP) PO SCH (10:00)
[2016-08-06] MEDS: FLUoxetine HCL 20 MG CAPSULE (FP) PO SCH (10:00)
[2016-08-06] MEDS: ALLOPURINOL 300 MG TABLET (FP) PO SCH (10:00)
[2016-08-06] MEDS: ASPIRIN COATED 81 MG TABLET.EC PO SCH (10:01)
[2016-08-06] MEDS: ALPRAZolam 2 MG TABLET PO SCH (10:01)
[2016-08-06] MEDS: PANTOPRAZOLE 40 MG TABLET (FP) PO SCH (10:01)
--- NOTE | 2016-08-06 11:29 | PN ---
Progress Note (short form) - Note Progress Note: - History of Present Illness History of Present Illness: 80 year old man with history of prior stroke, CAD, htn, hypercholesterolemia, gout, anxiety, GI bleed, depression, presented to ED with history of acute confusion. On arrival, no head trauma, seizure like activity, recent illness or fever. Seen by Dr Bonilla who felt his symptoms could be related to toxic metabolic encephalopathy. 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 Cardio/Vascular: Yes: HTN, Hyperlipdemia Psych: Yes: Anxiety, Depression - Alcohol/Substance Use Hx Alcohol Use: No - Smoking History Smoking history: Never smoked Have you smoked in the past 12 months: No Aproximately how many cigarettes per day: 0 - Social History Usual Living Arrangement: With Spouse Home Medications - Allergies Allergies/Adverse Reactions: Allergies Allergy/AdvReac Type Severity Reaction Status Date / Time Penicillins Allergy Mild Nausea Verified 08/02/16 06:20 - Home Medications Home Medications: Ambulatory Orders Allopurinol [Zyloprim -] 300 mg PO DAILY 09/24/14 Atorvastatin Ca [Lipitor] 20 mg PO HS 09/24/14 Pantoprazole Sodium [Protonix -] 40 mg PO DAILY #14 tablet.ec 07/22/16 Quetiapine Fumarate [Seroquel -] 25 mg PO HS #20 tablet 07/22/16 Alprazolam [Xanax] 1 mg PO QID 08/02/16 Aspirin [ASA -] 81 mg PO DAILY 08/02/16 Atenolol [Tenormin] 50 mg PO DAILY 08/02/16 Fluoxetine HCl Liquid [Prozac 20mg/5mL Oral Solution -] 60 mg PO DAILY 08/02/16 Hydroxyurea [Hydrea 500Mg Capsule -] 500 mg PO ASDIR 08/02/16 Family Disease History - Family Disease History Family History: Unable to Obtain Review of Systems - Review of Systems Constitutional: reports: No Symptoms Eyes: reports: No Symptoms Physical Exam-Neuro Constitutional: Yes: Well Nourished Neck: Yes: WNL Cardiovascular: Yes: WNL - Neuro Exam Level Of Consciousness: Oriented to name, age, month, not year Eyes: Yes: PERRLA Speech: WNL Cranial Nerves II-XII Intact: Yes Gag: Present DTR's: 1+ Left Bicep, 1+ Right Bicep, 1+ Left Brachioradialis, 1+ Right Brachioradialis Response to light touch: normal Motor Strength: 4/5: Left Arm, Right Arm, Left Leg, Right Leg Imaging - Results Cat Scan: Image Reviewed Problem List - Problems (1) CVA (cerebral vascular accident) Code(s): I63.9 - CEREBRAL INFARCTION, UNSPECIFIED Qualifiers: CVA mechanism: unspecified Qualified Code(s): I63.9 - Cerebral infarction, unspecified (2) Confusion state Code(s): F44.89 - OTHER DISSOCIATIVE AND CONVERSION DISORDERS Assessment/Plan 80 year old man with history of prior stroke, CAD, htn, hypercholesterolemia, gout, anxiety, GI bleed, depression, presented to ED with history of acute confusion. On arrival, no head trauma, seizure like activity, recent illness or fever. Seen by Dr Bonilla who felt his symptoms could be related to toxic metabolic encephalopathy. MRI brain complete shows no evidence of acute infarct Laboratory workup reveals elevated ammonia EEG mild slowing Metabolic encephalopathy? Recommend Mental status appears to have improved, some slight confusion but unclear patients baseline Follow up with neuro as outpatient 2-3 weeks
--- NOTE | 2016-08-06 14:56 | PN ---
Progress Note (short form) - Note Progress Note: PULMONARY CHART REVIEWED RECEIVED PROZAC/ZYPREXA AND XANAX AND IS NOW POORLY RESPONSIVE VSS/AFEBRILE ANICTERIC B/L RHONCHI S1S2 BS+ NO EDEMA LABS/MEDS/NOTES/IMAGING REVIEWED IMP CHEST CONGESTION/NO PNEUMONIA ALTERED MENTAL STATUS LIKELY DUE TO MEDICATION S/P CVA HTN RECENT ASPIRATION PNEUMONIA GOUT PLAN NASAL O2 INHALED BRONCHODILATORS MONITOR LYTES NEURO CHECKS RE-EVAL MEDICATIONS FOR OVER SEDATION Micah MCCORMICK MD
[2016-08-06 17:24] VITALS: BP 146/91; PULSE 52; TEMP 97.1
--- NOTE | 2016-08-06 18:18 | PN ---
Progress Note (short form) - Note Progress Note: PAtient seen and examined Comfortable. Mildly confused. Verbalizing. Following simple commands. Being discharged to [facility] Last Vital Signs Temp Pulse Resp BP Pulse Ox 97.1 F L 52 L 20 146/91 95 08/06/16 17:00 08/06/16 17:00 08/06/16 17:00 08/06/16 17:00 08/05/16 21:00 HEENT: ARMANDO, EOM Intact Oropharynx: No thrush, No mucositis Cor: RSR, No murmurs, No gallops Lungs: scattered rhonchi Abd: Soft, Normal bowel sounds, No organomegaly Ext:No significant edema Skin: No rashes, Integument intact Abnormal Lab Results 08/03/16 08/06/16 08/06/16 09:15 05:38 06:00 Anion Gap 7 L BUN 19 H Creatinine 1.4 H Calcium 8.3 L LD Total 322 H Myoglobin 108 H Current Medications Acetaminophen (Tylenol -) 650 mg PO Q6H PRN PRN Reason: FEVER OR PAIN Last Admin: 08/03/16 14:51 Dose: 650 mg Albuterol Sulfate (Ventolin 0.083% Nebulizer Soln -) 1 amp NEB Q4H PRN PRN Reason: SHORT OF BREATH/WHEEZING Allopurinol (Zyloprim -) 300 mg PO DAILY [facility] Last Admin: 08/06/16 10:00 Dose: 300 mg Alprazolam (Xanax -) 1 mg PO BID [facility] Last Admin: 08/06/16 10:01 Dose: 1 mg Aspirin (Ecotrin -) 81 mg PO DAILY [facility] Last Admin: 08/06/16 10:01 Dose: 81 mg Atenolol (Tenormin -) 50 mg PO DAILY [facility] Last Admin: 08/06/16 10:00 Dose: 50 mg Atorvastatin Calcium (Lipitor -) 10 mg PO HS [facility] Last Admin: 08/05/16 22:03 Dose: 10 mg Fluoxetine HCl (Prozac -) 60 mg PO DAILY [facility] Last Admin: 08/06/16 10:00 Dose: 60 mg Olanzapine (Zyprexa -) 10 mg PO HS [facility] Last Admin: 08/05/16 22:03 Dose: 10 mg Pantoprazole Sodium (Protonix -) 40 mg PO DAILY [facility] Last Admin: 08/06/16 10:01 Dose: 40 mg A/P 80 year old man with history of prior stroke, CAD, htn, hypercholesterolemia, gout, anxiety, GI bleed, depression, presented to ED with history of acute confusion. On arrival, no head trauma, seizure like activity, recent illness or fever. Seen by Dr Bonilla who felt his symptoms could be related to toxic metabolic encephalopathy. MRI brain complete shows no evidence of acute infarct Laboratory workup reveals elevated ammonia EEG mild slowing Metabolic encephalopathy? PAtient also with JAK2+ Myeloproliferative disorder --on ASA 81 mg daily On hydrea 500mg [facility] NEed to monitor CBC twice weekly MAy need to hold hydrea based on CBC Monitor CBC twice weekly Patient being transfered to [facility] Discussed with his and daughter
[2016-08-07 06:06] LABS: IGG IMMUNOGLOBULIN 1671 mg/dL (700-1600); IGM IMMUNOGLOBULIN 108 mg/dL (15-143)
[2016-08-08 00:09] LABS: A/G RATIO 0.9 (0.7-1.7); ALBUMIN 3.3 g/dL (2.9-4.4); GLOBULIN, TOTAL 3.7 g/dL (2.2-3.9); M-SPIKE Not Observed g/dL (Not Observed)
--- NOTE | 2016-08-08 16:31 | PATH ---
Surgical Pathology Report Patient Name: EDEL YEBOAH [facility]. Rec. #: [id number] /Age/Gender: 1935 (Age: 80) / M Account: [id number] Location: 4 W TELEMETRY U Taken: 08/06/2016 Received: 08/06/2016 Reported: 08/08/2016 Physicians: Keira Delgado M.D. 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 INTERPRETATION: POSITIVE FOR JAK2 V617F MUTATION. Comment: The acquired somatic V617F JAK2 mutation has been found in a majority of patients with Polycythemia Vera 9PV) 9<90%) and 30-50% of patients with either essential thrombocytopenia (ET) and or myelofibrosis (MF) according to t literature. The mutation is not detected in normal individuals. BCR-ABL GENE REARRANGEMENT-QUANTITATIVE REAL TIME PCR ANALYSIS (IS) PERFORMED AND INTERPRETED AT [facility], [place] ([id number]) SHOWED THE FOLLOWING: RESULTS: NEGATIVE BCR/ABL MAJOR BREAKPOINTS (b2a2 AND b3a2): NOT DETECTED. BCR/ABL MINOR BREAKPOINT (e1a2): NOT DETECTED. INTERPRETATION: NO BCR-ABL TRANSLOCATION WAS DETECTED IN THIS SAMPLE. Electronically Signed Catracho Johnson M.D. Gross Description ---- Received are 2 lavender top tubes of blood which are sent to [facility]. /08/06/2016 saudi/08/06/2016
== END 2016-08-06 19:15 | disposition home or self-care (01) | DRG 92 ==
LOC: JER 06:07 → JERBED 09:12 → J4W 15:33
PROVIDERS: ADMIT Family Medicine; ATTEND Family Medicine
PROC: 4A00X4Z Measurement of Central Nervous Electrical Activity, External Approach (ICD-10-PCS; principal; 2016-08-04)
DX: G92 Toxic encephalopathy (principal); F23 Brief psychotic disorder; F44.89 Other dissociative and conversion disorders; F41.9 Anxiety disorder, unspecified; F32.9 Major depressive disorder, single episode, unspecified; Z86.73 Personal history of transient ischemic attack (TIA), and cerebral infarction without residual deficits; I25.10 Atherosclerotic heart disease of native coronary artery without angina pectoris; R40.4 Transient alteration of awareness; R06.00 Dyspnea, unspecified; R77.1 Abnormality of globulin; D72.824 Basophilia; I10 Essential (primary) hypertension; E78.00 Pure hypercholesterolemia, unspecified
CPT/HCPCS: 36415; 70450-TC; 70551-TC; 71020-TC; 80048; 80053; 80061; 82085; 82140; 82550; 82607; 82784; 82977; 83605; 83615; 83721; 83874; 83883; 84155; 84165; 84443; 84484; 85025; 85027; 85610; 85651; 85730; 86038; 86618; 87040; 88300-TC; 93005; 93010; 95816; 97116-GP; 97162-PG; 99284-25; J8999

== ENCOUNTER 2016-08-07 23:23 | Inpatient (IN) | payer OTHER, BC ==
--- NOTE | 2016-08-07 23:54 | PDOC ---
History of Present Illness - General History Source: Patient, Spouse Exam Limitations: Dementia - History of Present Illness Initial Comments: 08/08/16 00:09 The patient is a 80 year old male, with a significant past medical history of CVA, HTN, hyperlipidemia, gout, anxiety/depression, TIA X2, ataxia, and GI bleed , who presents to the emergency department complaining of left knee pain for 1 day. As per , the patiently was recently treated for a CVA on 08/02/16 and discharged yesterday. Since the CVA, the patient has been unable to walk. She states the patient has been increasingly confused and increasingly aggressive with other [place] [facility] residents since yesterday. The reports the patient has been experiencing a cough, residual of recent pneumonia. The patient denies any fever, chills, headache, dizziness, or SOB. The patient denies any nausea, vomiting, diarrhea, constipation, or changes in urination patterns. Allergies: Penicillins Past Surgical History: None reported. Social History: Non-smoker. Denies alcohol or drug use. PCP: Dr. De Leon <Ankur Cespedes - Last Filed: 08/12/16 10:40> - General History Source: Spouse <Narayan Galeano - Last Filed: 08/12/16 19:37> - General Chief Complaint: Altered Mental Status Stated Complaint: ALTERED MENTAL STATUS Time Seen by Provider: 08/07/16 23:37 Past History <Ankur Cespedes - Last Filed: 08/12/16 10:40> - Past Medical History Anemia: No Asthma: No Cancer: No Cardiac Disorders: No CVA: Yes (TIA X2, Ataxia) COPD: No CHF: No Dementia: No Diabetes: No GI Disorders: Yes (GI bleed) Disorders: No HTN: Yes Hypercholesterolemia: Yes Liver Disease: No Psychiatric Problems: Yes (AXIETY, DEPRESSION) Seizures: No Thyroid Disease: No - Surgical History Abdominal Surgery: No Appendectomy: No Cardiac Surgery: No Cholecystectomy: No Lung Surgery: No Neurologic Surgery: No Orthopedic Surgery: No - Immunization History Immunization Up to Date: Yes - Psycho/Social/Smoking Cessation Hx Anxiety: No Suicidal Ideation: No Smoking Status: No Smoking History: Former smoker Have you smoked in the past 12 months: No Number of Cigarettes Smoked Daily: 0 Information on smoking cessation initiated: No Hx Alcohol Use: No Drug/Substance Use Hx: No Substance Use Type: None Hx Substance Use Treatment: No <Narayan Galeano - Last Filed: 08/12/16 19:37> - Past Medical History Allergies/Adverse Reactions: Allergies Allergy/AdvReac Type Severity Reaction Status Date / Time Penicillins Allergy Mild Nausea Verified 08/07/16 23:45 Home Medications: Ambulatory Orders Allopurinol [Zyloprim -] 300 mg PO DAILY 09/24/14 Atorvastatin Ca [Lipitor] 20 mg PO HS 09/24/14 Pantoprazole Sodium [Protonix -] 40 mg PO DAILY #14 tablet.ec 07/22/16 Aspirin [ASA -] 81 mg PO DAILY 08/02/16 Atenolol [Tenormin] 50 mg PO DAILY 08/02/16 Fluoxetine HCl Liquid [Prozac 20mg/5mL Oral Solution -] 60 mg PO DAILY 08/02/16 Alprazolam [Xanax] 1 mg PO BID tablet MDD 2 08/05/16 Hydroxyurea [Hydrea 500Mg Capsule -] 500 mg PO TuThSa capsule 08/12/16 Olanzapine [Zyprexa -] 15 mg PO HS #30 tablet 08/12/16 Review of Systems - Review of Systems Able to Perform ROS?: Yes Comments:: 08/08/16 00:09 CONSTITUTIONAL: Absent: fever, chills, diaphoresis, generalized weakness, malaise, loss of appetite HEENT: Absent: rhinorrhea, nasal congestion, throat pain, throat swelling, difficulty swallowing, mouth swelling, ear pain, eye pain, visual Changes CARDIOVASCULAR: Absent: chest pain, syncope, palpitations, irregular heart rate, lightheadedness , peripheral edema RESPIRATORY: Present: +cough Absent: shortness of breath, dyspnea with exertion, orthopnea, wheezing, stridor , hemoptysis GASTROINTESTINAL: Absent: abdominal pain, abdominal distension, nausea, vomiting, diarrhea, constipation, melena, hematochezia GENITOURINARY: Absent: dysuria, frequency, urgency, hesitancy, hematuria, flank pain, genital pain MUSCULOSKELETAL: Present: +Left knee pain Absent: joint swelling SKIN: Absent: rash, itching, pallor HEMATOLOGIC/IMMUNOLOGIC: Absent: easy bleeding, easy bruising, lymphadenopathy, frequent infections ENDOCRINE: Absent: unexplained weight gain, unexplained weight loss, heat intolerance, cold intolerance NEUROLOGIC: Present: +mental status change, +unsteady gait Absent: headache, focal weakness or paresthesias, dizziness, seizure, bladder or bowel incontinence PSYCHIATRIC: Absent: anxiety, depression, suicidal or homicidal ideation, hallucinations. <Ankur Cespedes - Last Filed: 08/12/16 10:40> *Physical Exam - Vital Signs Last Vital Signs Temp Pulse Resp BP Pulse Ox 98 F 83 22 154/70 94 L 08/07/16 23:41 08/07/16 23:41 08/07/16 23:41 08/07/16 23:41 08/07/16 23:41 - Physical Exam Comments: 08/08/16 00:10 GENERAL: Well developed, well nourished. Awake, alert, oriented x1. No acute distress. HEENT: Normocephalic, atraumatic. PERRLA, EOMI. No conjunctival pallor. Sclera are non- icteric. Moist mucous membranes. Oropharynx is clear. NECK: Supple. Full ROM. No JVD. Carotid pulses 2+ and symmetric, without bruits. No thyromegaly. No lymphadenopathy. CARDIOVASCULAR: Regular rate and rhythm. No murmurs, rubs, or gallops. Distal pulses are 2+ and symmetric. PULMONARY: No evidence of respiratory distress. Lungs clear to auscultation bilaterally. No wheezing, rales or rhonchi. ABDOMINAL: Soft. Non-tender. Non-distended. No rebound or guarding. No organomegaly. Normoactive bowel sounds. MUSCULOSKELETAL Normal range of motion at all joints. No bony deformities or tenderness. No CVA tenderness. EXTREMITIES: No cyanosis. No clubbing. No edema. No calf tenderness. SKIN: Warm and dry. Normal capillary refill. No rashes. No jaundice. NEUROLOGICAL: Alert, awake, appropriate. Cranial nerves 2-12 intact. No deficits to light touch and temperature in face, upper extremities and lower extremities. No motor deficits in the in face, upper extremities and lower extremities. Normoreflexic in the upper and lower extremities. Normal speech. Toes are down- going bilaterally. Gait is normal without ataxia. PSYCHIATRIC: Cooperative. Good eye contact. Appropriate mood and affect. <CespedesLulunorm - Last Filed: 08/12/16 10:40> - Vital Signs Last Vital Signs Temp Pulse Resp BP Pulse Ox 98 F 83 22 154/70 94 L 08/07/16 23:41 08/07/16 23:41 08/07/16 23:41 08/07/16 23:41 08/07/16 23:41 <Narayan Galeano - Last Filed: 08/12/16 19:37> Heart Score/ECG Review - ECG Impressions Comment:: 08/08/16 00:30 Vent. Rate: 65 bpm IMPRESSION: Normal sinus rhythm. Left axis deviation. Minimal voltage criteria for LVH. T wave abnormality, consider lateral ischemia. <Ankur Cespedes - Last Filed: 08/12/16 10:40> ED Treatment Course - LABORATORY CBC & Chemistry Diagram: 08/11/16 15:30 08/12/16 07:30 - RADIOLOGY Radiograph Interpretation: 08/08/16 06:49 EXAM: CXR INTERPRETED BY: Dr. aPrsons REVIEWED BY: Dr. Galeano IMPRESSION: No acute changes in the lungs EXAM: Head CT INTERPRETED BY: Dr. Parsons REVIEWED BY: Dr. Galeano IMPRESSION: No CT evidence of mass, hemorrhage or acute vascular territory infarction. <Ankur Cespedes - Last Filed: 08/12/16 10:40> - LABORATORY CBC & Chemistry Diagram: 08/11/16 15:30 08/12/16 07:30 <Narayan Galeano - Last Filed: 08/12/16 19:37> Medical Decision Making - Medical Decision Making 08/12/16 19:36 Dr. Galeano: The scribe's documentation has been prepared under my direction and personally reviewed by me in its entirery. I confirm that the note above accurately reflects all work, treatment, procedures, and medical decision making performed by me. <Narayan Galeano - Last Filed: 08/12/16 19:37> *DC/Admit/Observation/Transfer - Attestations Scribe Attestion: 08/08/16 00:10 Documentation prepared by Ankur Cespedes, acting as biomedical engineering aide for Narayan Galeano DO. <Ankur Cespedes - Last Filed: 08/12/16 10:40> - Discharge Dispostion Admit: Yes <Narayan Galeano - Last Filed: 08/12/16 19:37> Diagnosis at time of Disposition: Altered mental status Qualifiers: Altered mental status type: disorientation Qualified Code(s): R41.0 - Disorientation, unspecified Sinusitis Qualifiers: Sinusitis location: maxillary Chronicity: chronic Qualified Code(s): J32.0 - Chronic maxillary sinusitis - Discharge Dispostion Condition at time of disposition: Stable - Prescriptions - Referrals
[2016-08-08] MEDS ORDERED: HALOPERIDOL DECANOATE 100 MG/ML IM ONE ×2 (00:32→06:43)
[2016-08-08] MEDS ORDERED: LORAZEPAM CARPU-JECT 2 MG/ML DISP.SYRIN IM ONE (00:32)
[2016-08-08] MEDS ORDERED: HALOPERIDOL LACTATE 5 MG/ML ONE ×2 (00:34→06:39)
[2016-08-08] MEDS ORDERED: LORAZEPAM CARPU-JECT 2 MG/ML DISP.SYRIN ONE ×2 (00:34→06:00)
[2016-08-08] MEDS ORDERED: LEVOFLOXACIN 500 MG IVPB 100 ML IVPB ONE ×2 (02:37→02:46)
[2016-08-08 03:15] LABS: BASOPHIL 0.5 % (0-2.0); EOSINOPHIL 6.7 % (0-4.5); MCHC 33.7 g/dl (32.0-35.9); MEAN CELL VOLUME 94.8 fl (80-96); MEAN PLT VOLUME 8.3 fl (7.5-11.1); NEUTROPHILS 54.1 % (42.8-82.8); PLATELET COUNT 271 K/MM3 (134-434); RDW 16.1 % (11.9-15.9); WHITE BLOOD COUNT 9.7 K/mm3 (4.0-10.0)
[2016-08-08 03:38] LABS: ALBUMIN 3.2 g/dl (3.4-5.0); BILIRUBIN,TOTAL 0.9 mg/dL (0.2-1.0); CALCIUM 8.5 mg/dL (8.5-10.1); CREATININE 1.6 mg/dL (0.7-1.3)
[2016-08-08 03:40] LABS: TROPONIN I 0.02 ng/ml (0.00-0.05)
[2016-08-08] MEDS ORDERED: LORAZEPAM CARPU-JECT 2 MG/ML DISP.SYRIN IVPUSH ONE (05:55)
[2016-08-08] MEDS ORDERED: ACETAMINOPHEN 325 MG TABLET (FP) PO ONE (06:15)
[2016-08-08] MEDS ORDERED: ACETAMINOPHEN 325 MG TABLET (FP) ONE (06:41)
[2016-08-08] MEDS ORDERED: HALOPERIDOL LACTATE 5 MG/ML IM ONE (06:45)
--- NOTE | 2016-08-08 09:46 | HP ---
Admitting History and Physical - Primary Care Physician PCP: Jose De Leon - Admission History of Present Illness: The patient is a 80 year old male, with a significant past medical history of CVA, HTN, hyperlipidemia, gout, anxiety/depression, TIA X2, ataxia, and GI bleed , who presents to the emergency department complaining of left knee pain for 1 day. As per , the patiently was recently treated for a CVA on 08/02/16 and discharged yesterday. Since the CVA, the patient has been unable to walk. She states the patient has been increasingly confused and increasingly aggressive with other half-way residents since yesterday. The reports the patient has been experiencing a cough, residual of recent pneumonia. The patient denies any fever, chills, headache, dizziness, or SOB. The patient denies any nausea, vomiting, diarrhea, constipation, or changes in urination patterns. 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 Cardiovascular: Yes: HTN, Hyperlipdemia Pulmonary: Yes: Asthma Psych: Yes: Anxiety, Depression - Smoking History Smoking history: Former smoker Have you smoked in the past 12 months: No Aproximately how many cigarettes per day: 0 - Alcohol/Substance Use Hx Alcohol Use: No Home Medications - Allergies Allergies/Adverse Reactions: Allergies Allergy/AdvReac Type Severity Reaction Status Date / Time Penicillins Allergy Mild Nausea Verified 08/07/16 23:45 - Home Medications Home Medications: Ambulatory Orders Allopurinol [Zyloprim -] 300 mg PO DAILY 09/24/14 Atorvastatin Ca [Lipitor] 20 mg PO HS 09/24/14 Pantoprazole Sodium [Protonix -] 40 mg PO DAILY #14 tablet.ec 07/22/16 Quetiapine Fumarate [Seroquel -] 25 mg PO HS #20 tablet 07/22/16 Aspirin [ASA -] 81 mg PO DAILY 08/02/16 Atenolol [Tenormin] 50 mg PO DAILY 08/02/16 Fluoxetine HCl Liquid [Prozac 20mg/5mL Oral Solution -] 60 mg PO DAILY 08/02/16 Hydroxyurea [Hydrea 500Mg Capsule -] 500 mg PO ASDIR 08/02/16 Alprazolam [Xanax] 1 mg PO BID tablet MDD 2 08/05/16 Olanzapine [Zyprexa -] 10 mg PO HS #30 tablet 08/05/16 Family Disease History - Family Disease History Family Disease History: Heart Disease: Mother (CHF) Review of Systems Unable to obtain ROS, reason: change in mental status Physical Examination Vital Signs: Vital Signs Temperature 98.0 F 08/08/16 08:06 Pulse Rate 68 08/08/16 08:06 Respiratory Rate 20 08/08/16 08:06 Blood Pressure 142/92 08/08/16 08:06 O2 Sat by Pulse Oximetry (%) 94 L 08/07/16 23:41 Constitutional: Yes: Other (arms tied down) Neck: Yes: Trachea Midline Cardiovascular: Yes: Regular Rate and Rhythm, S1, S2 Respiratory: Yes: Diminished Gastrointestinal: Yes: Normal Bowel Sounds, Soft Edema: No Integumentary: Yes: Other (abrasion on both knees) Neurological: Yes: Alert (oriented to name doesnot know where he is) Imaging - Results Cat Scan: Report Reviewed (chronic sinus inflammation) Problem List - Problems (1) Hallucination, visual Assessment/Plan: psych eval r/o uti Code(s): R44.1 - VISUAL HALLUCINATIONS (2) Altered mental status Assessment/Plan: maybe sec to infectious eitology check UA psych eval wrist restraints abx possible uti? ct head no acute changes chronic sinusitis Code(s): R41.82 - ALTERED MENTAL STATUS, UNSPECIFIED Qualifiers: Altered mental status type: disorientation Qualified Code(s): R41.0 - Disorientation, unspecified (3) Sinusitis Assessment/Plan: chronic on ct scan Code(s): J32.9 - CHRONIC SINUSITIS, UNSPECIFIED Qualifiers: Sinusitis location: maxillary Chronicity: chronic Qualified Code(s) : J32.0 - Chronic maxillary sinusitis (4) Acute renal insufficiency Assessment/Plan: ivfluids Code(s): N28.9 - DISORDER OF KIDNEY AND URETER, UNSPECIFIED
[2016-08-08] MEDS ORDERED: HALOPERIDOL DECANOATE 100 MG/ML IM SCH (10:00)
--- NOTE | 2016-08-08 10:00 | EKG ---
Test Reason : Blood Pressure : / mmHG Vent. Rate : 065 BPM Atrial Rate : 065 BPM P-R Int : 178 ms QRS Dur : 098 ms QT Int : 458 ms P-R-T Axes : 034 -30 114 degrees QTc Int : 476 ms NORMAL SINUS RHYTHM LEFT AXIS DEVIATION MINIMAL VOLTAGE CRITERIA FOR LVH, MAY BE NORMAL VARIANT T WAVE ABNORMALITY, CONSIDER LATERAL ISCHEMIA ABNORMAL ECG Confirmed by COY HUNTLEY MD ([id number]) on 08/08/2016 9:59:34 AM Referred By: Confirmed By:COY HUNTLEY MD
[2016-08-08 10:30] LABS: TROPONIN I 0.05 ng/ml (0.00-0.05)
[2016-08-08] MEDS ORDERED: OLANZapine 7.5 MG TABLET PO ONE (12:02)
--- NOTE | 2016-08-08 12:06 | CON.PSY ---
Psychiatry Consult Chief Complaint: [facility] and [facility]. Symptoms: reports: Aggressivity - Previous Psychiatric Treatment Outpatient: Less than 6 mos ago - Previous Substance Abuse Treatment Outpatient: None - Reason for Previous Treatment Reason for Previous Treatment: Major Depression - Current Medications Current Medications: Active Medications Allopurinol (Zyloprim -) 300 mg PO DAILY [facility] Alprazolam (Xanax -) 1 mg PO BID [facility] Aspirin (Asa -) 81 mg PO DAILY [facility] Atenolol (Tenormin -) 50 mg PO DAILY [facility] Atorvastatin Calcium (Lipitor -) 20 mg PO HS [facility] Fluoxetine HCl (Prozac -) 60 mg PO DAILY [facility] Heparin Sodium (Porcine) (Heparin -) 5,000 unit SQ BID [facility] Hydroxyurea (Hydrea -) 500 mg PO BID [facility] Levofloxacin (Levaquin 250 Mg Premixed Ivpb -) 50 mls @ 50 mls/hr IVPB DAILY@ 0800 [facility] Olanzapine (Zyprexa -) 15 mg PO ONCE ONE Stop: 08/08/16 12:03 Pantoprazole Sodium (Protonix -) 40 mg PO DAILY [facility] - Allergies Allergies: Allergies Allergy/AdvReac Type Severity Reaction Status Date / Time Penicillins Allergy Mild Nausea Verified 08/07/16 23:45 - Current Living Status Usual Living Arrangement: Longterm - Current Mental Status Evaluation Appearance: Disheveled Attitude: Uncooperative - Affect Affect: Flat Appropriateness: Not Appropriate - Mood Mood: Irritable - Speech/Language Expressive: Delayed - Psychomotor Activity Psychomotor Activity: Hyperactive - Thought Process Thought Process: Circumstantial - Thought Content Hallucinations: Present Type: Visual Delusions: Absent - Self Perception Self Perception: Depersonalization - Cognition Attention: Diminished Orientation: Person Memory, Immediate Recall: Impaired Memory, Short Term: 2/3 Memory, Remote with Promptin/3 - Concentration Serial Sevens Intact: No Simple Calculations Intact: No - Abstraction Proverb Interpretation: Impaired Judgement: Severely Impaired - Insight Insight: Impaired - Impulse Control Impulse Control: Severly Impaired - Suicidal Ideation Suicidal Ideation: No - Homicidal Ideation Homicidal Ideation: No Assessment/Plan Increase Zyprexa 15mg po hs.
[2016-08-08] MEDS: PANTOPRAZOLE 40 MG TABLET (FP) PO SCH ×2 (12:52→21:47)
[2016-08-08] MEDS: ALLOPURINOL 300 MG TABLET (FP) PO SCH ×2 (12:52→21:48)
[2016-08-08] MEDS: ASPIRIN 81 MG CHEWABLE TABLETS PO SCH ×2 (12:52→21:47)
[2016-08-08] MEDS: FLUoxetine HCL 20 MG CAPSULE (FP) PO SCH (12:52)
[2016-08-08] MEDS: ATENOLOL 50 MG TABLET (FP) PO SCH ×2 (12:52→21:47)
[2016-08-08] MEDS ORDERED: ALPRAZolam 2 MG TABLET ONE (13:07)
[2016-08-08] MEDS ORDERED: HEPARIN NA (PORCINE) 5,000 UNITS/ML 1ML VIAL ONE (13:07)
--- NOTE | 2016-08-08 14:36 | PN ---
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
--- NOTE | 2016-08-08 15:28 | CONSULT ---
Consult Consult Specialty:: Neurology Reason for Consultation:: Confusion - History of Present Illness History of Present Illness: 80 year old man, history of stroke recently discharged, hypertension, hyperlipidemia, gout, TIAx2, GI bleed, presents to the ED with left knee pain for one day. Since the time of his stroke, patient has been unable to walk. She states that he has been increasingly confused, appears to be in a delirious state, seeing objects and bugs that aren't there. At times he becmoes aggressive and combative with staff at the nursing facility he was discharged to. No new weakness or new focal findings. 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 Cardio/Vascular: Yes: HTN, Hyperlipdemia Pulmonary: Yes: Asthma Psych: Yes: Anxiety, Depression - Alcohol/Substance Use Hx Alcohol Use: No - Smoking History Smoking history: Former smoker Have you smoked in the past 12 months: No Aproximately how many cigarettes per day: 0 - Social History Usual Living Arrangement: [facility] Home Medications - Allergies Allergies/Adverse Reactions: Allergies Allergy/AdvReac Type Severity Reaction Status Date / Time Penicillins Allergy Mild Nausea Verified 08/07/16 23:45 - Home Medications Home Medications: Ambulatory Orders Allopurinol [Zyloprim -] 300 mg PO DAILY 09/24/14 Atorvastatin Ca [Lipitor] 20 mg PO HS 09/24/14 Pantoprazole Sodium [Protonix -] 40 mg PO DAILY #14 tablet.ec 07/22/16 Quetiapine Fumarate [Seroquel -] 25 mg PO HS #20 tablet 07/22/16 Aspirin [ASA -] 81 mg PO DAILY 08/02/16 Atenolol [Tenormin] 50 mg PO DAILY 08/02/16 Fluoxetine HCl Liquid [Prozac 20mg/5mL Oral Solution -] 60 mg PO DAILY 08/02/16 Hydroxyurea [Hydrea 500Mg Capsule -] 500 mg PO ASDIR 08/02/16 Alprazolam [Xanax] 1 mg PO BID tablet MDD 2 08/05/16 Olanzapine [Zyprexa -] 10 mg PO HS #30 tablet 08/05/16 Family Disease History - Family Disease History Family Disease History: Heart Disease: Mother (CHF) Physical Exam Vital Signs: Vital Signs Temperature 98.0 F 08/08/16 08:06 Pulse Rate 68 08/08/16 08:06 Respiratory Rate 20 08/08/16 08:06 Blood Pressure 142/92 08/08/16 08:06 O2 Sat by Pulse Oximetry (%) 94 L 08/07/16 23:41 Constitutional: Yes: No Distress Eyes: Yes: Conjunctiva Clear, EOM Intact HENT: Yes: Atraumatic, Normocephalic Neurological: Yes: Cran Nerves II-XII Intact (sleeping, opens eyes to sternal rub, not following commands EOMI, blinks to visual thread, face symmetric, tongue in midline Moving all extremities spontaneously) Problem List - Problems (1) Altered mental status Code(s): R41.82 - ALTERED MENTAL STATUS, UNSPECIFIED Qualifiers: Altered mental status type: disorientation Qualified Code(s): R41.0 - Disorientation, unspecified (2) Hallucination, visual Code(s): R44.1 - VISUAL HALLUCINATIONS Assessment/Plan 80 year old man, history of stroke recently discharged, hypertension, hyperlipidemia, gout, TIAx2, GI bleed, presents to the ED with left knee pain for one day. Since the time of his stroke, patient has been unable to walk. She states that he has been increasingly confused, appears to be in a delirious state, seeing objects and bugs that aren't there. At times he becmoes aggressive and combative with staff at the nursing facility he was discharged to. No new weakness or new focal findings. CT head no acute findings Impression Delirium, possible metabolic encephalopathy Recommend repeating MRI brain to rule out new stroke Continue with aspirin and statin Continue supportive care
[2016-08-08 15:37] LABS: TROPONIN I 0.04 ng/ml (0.00-0.05)
[2016-08-08 16:26] VITALS: BMI 33.4
--- NOTE | 2016-08-08 16:37 | CONS ---
DATE OF CONSULTATION: DATE OF DICTATION: 08/08/2016 INFECTIOUS DISEASE CONSULTATION HISTORY OF PRESENT ILLNESS: The patient is a 80-year-old male with a recent history of stroke, multiple recent hospitalizations, now evaluated for possible sepsis. He was discharged from [facility] August 08, 2016, after a several-day stay for stroke. While at the jail facility, he had altered mental status, and the family reports he became very combative and was experiencing visual hallucinations. He was conversant however family reports he was not making sense. He was found on the floor and was noted to have abrasions to his knees bilaterally. He was evaluated in the emergency room where CAT scan of the head was negative for acute infarct or bleed. He was noted to have chronic ethmoids and maxillary sinusitis. According to family members, he was not complaining of any focal problem, and he was not complaining of chest pain, was not noted to be shortness of breath or coughing, no reports of vomiting or diarrhea, grossly purulent urine or infected decubitus ulcers. He has had several hospitalizations within the past 2 months for stroke and pneumonia. In the emergency room, he was afebrile with a normal white blood cell count. PAST MEDICAL HISTORY: Positive for stroke. History of presumed aspiration pneumonia, thrombocytosis recently started on Hydrea, esophageal disorder, hypertension, hyperlipidemia, gouty arthritis, TIA, GI bleed. ALLERGIES: PENICILLIN. Family reports generalized rash and swelling. MEDICATION: Include Levaquin, heparin, Prozac, Zyloprim, Hydrea, Zyprexa, Xanax, Tenormin, Lipitor, aspirin, Protonix. SOCIAL HISTORY: Was living at home previously with his significant other. Former smoker. SYSTEMS REVIEW: Neurologic: As per HPI. Cardiac: Negative chest pain or palpitations. Respiratory: Negative cough or sputum production. Gastrointestinal: Negative vomiting or diarrhea. Genitourinary: Negative for urinary tract infection. LABORATORY DATA: White count 9.7, with 54 neutrophils, 27 lymphocytes, 11 monocytes, 6 eosinophils. Hematocrit 39.9, platelet count 271, BUN 21, creatinine 1.6. Urinalysis pending. Chest x-ray negative for acute infiltrate. CAT scan of the head negative for acute infarct or bleed. PHYSICAL EXAMINATION: General: The patient now is somnolent in the emergency room having received medication. He is in no acute distress. Vital signs: Temperature 98.0, blood pressure 142/92, pulse 68 regular, respirations 18 per minute. HEENT: Sclerae anicteric. Neck: Supple. Cardiovascular: Heart sounds S1, S2. Respiratory: Lungs clear. Poor inspiratory effort. No rhonchi or wheezing. Abdomen: Soft. No tenderness elicited. No mass, rebound, or rigidity. Extremities: Negative for edema. Abrasions present on the knees bilaterally. IMPRESSION: 1. Altered mental status of unclear etiology, possible sepsis. 2. Chronic sinusitis by CAT scan. 3. PENICILLIN ALLERGY. 4. History of thrombocytosis. 5. Status post cerebrovascular accident. 6. History of chronic eosinophilia. Doubt primary METAL SMELTER infection. Cannot rule out toxic metabolic encephalopathy. Obtain cultures. Continue empiric Levaquin in this PENICILLIN allergic patient. Aspiration precautions. Case discussed with family members present at the time of the examination. Thank you for the kind referral. COY BEAL M.D. [id number]
[2016-08-08] MEDS ORDERED: PT OWN MED DRAWER 7, Y5N ONE (21:11)
[2016-08-08] MEDS: HEPARIN NA (PORCINE) 5,000 UNITS/ML 1ML VIAL SQ SCH (21:47)
[2016-08-08] MEDS: ATORVASTATIN CA 20 MG TABLET (FP) PO SCH (21:47)
[2016-08-08] MEDS: ALPRAZolam 2 MG TABLET PO SCH (21:48)
[2016-08-08] MEDS ORDERED: OLANZapine 7.5 MG TABLET PO SCH (22:00)
[2016-08-08] MEDS ORDERED: QUEtiapine FUMARATE 25 MG TABLET (FP) PO SCH (22:00)
[2016-08-08] MEDS ORDERED: OLANZapine 10 MG TABLET PO SCH (22:00)
[2016-08-08] MEDS: HYDROXYUREA 500 MG CAPSULE PO SCH (23:00)
[2016-08-09] MEDS ORDERED: PT OWN MED DRAWER 7, Y5N ONE ×2 (07:00→09:37)
[2016-08-09] MEDS: LEVOFLOXACIN 250 MG IVPB 50 ML IVPB SCH (08:22)
[2016-08-09 09:22] LABS: BASOPHIL 0.3 % (0-2.0); EOSINOPHIL 4.9 % (0-4.5); MCH 31.7 pg (25.7-33.7); MEAN CELL VOLUME 96.2 fl (80-96); MEAN PLT VOLUME 7.9 fl (7.5-11.1); NEUTROPHILS 53.4 % (42.8-82.8); PLATELET COUNT 244 K/MM3 (134-434); RDW 16.5 % (11.9-15.9); WHITE BLOOD COUNT 6.2 K/mm3 (4.0-10.0)
[2016-08-09] MEDS: ALPRAZolam 2 MG TABLET PO SCH ×2 (09:41→21:11)
[2016-08-09] MEDS: FLUoxetine HCL 20 MG CAPSULE (FP) PO SCH (09:41)
[2016-08-09] MEDS: ASPIRIN 81 MG CHEWABLE TABLETS PO SCH (09:42)
[2016-08-09] MEDS: HEPARIN NA (PORCINE) 5,000 UNITS/ML 1ML VIAL SQ SCH ×2 (09:43→21:10)
[2016-08-09] MEDS: ALLOPURINOL 300 MG TABLET (FP) PO SCH (09:43)
[2016-08-09] MEDS: PANTOPRAZOLE 40 MG TABLET (FP) PO SCH (09:43)
[2016-08-09] MEDS: ATENOLOL 50 MG TABLET (FP) PO SCH (09:43)
[2016-08-09] MEDS: HYDROXYUREA 500 MG CAPSULE PO SCH (09:43)
[2016-08-09 10:10] LABS: BILIRUBIN,TOTAL 0.7 mg/dL (0.2-1.0); CALCIUM 8.8 mg/dL (8.5-10.1); CREATININE 1.9 mg/dL (0.7-1.3); TOT PROT 6.7 g/dl (6.4-8.2)
[2016-08-09] MEDS ORDERED: HYDROXYUREA 500 MG CAPSULE PO SCH (10:15)
--- NOTE | 2016-08-09 11:36 | PN ---
Progress Note, Physician - Current Medication List Current Medications: Active Medications Allopurinol (Zyloprim -) 300 mg PO DAILY [facility] Last Admin: 08/09/16 09:43 Dose: 300 mg Alprazolam (Xanax -) 1 mg PO BID [facility] Last Admin: 08/09/16 09:41 Dose: 1 mg Aspirin (Asa -) 81 mg PO DAILY [facility] Last Admin: 08/09/16 09:42 Dose: 81 mg Atenolol (Tenormin -) 50 mg PO DAILY [facility] Last Admin: 08/09/16 09:43 Dose: 50 mg Atorvastatin Calcium (Lipitor -) 20 mg PO HS [facility] Last Admin: 08/08/16 21:47 Dose: 20 mg Fluoxetine HCl (Prozac -) 60 mg PO DAILY [facility] Last Admin: 08/09/16 09:41 Dose: 60 mg Heparin Sodium (Porcine) (Heparin -) 5,000 unit SQ BID [facility] Last Admin: 08/09/16 09:43 Dose: 5,000 unit Hydroxyurea (Hydrea -) 500 mg PO TuThSa [facility] Levofloxacin (Levaquin 250 Mg Premixed Ivpb -) 50 mls @ 50 mls/hr IVPB DAILY@ 0800 [facility] Last Admin: 08/09/16 08:22 Dose: 50 mls/hr Olanzapine (Zyprexa -) 15 mg PO [facility] Pantoprazole Sodium (Protonix -) 40 mg PO DAILY [facility] Last Admin: 08/09/16 09:43 Dose: 40 mg - Objective Vital Signs: Vital Signs Temperature 97.5 F L 08/09/16 08:00 Pulse Rate 58 L 08/09/16 08:00 Respiratory Rate 20 08/09/16 08:00 Blood Pressure 135/76 08/09/16 08:00 O2 Sat by Pulse Oximetry (%) 94 L 08/08/16 21:00 Cardiovascular: Yes: S1, S2 Respiratory: Yes: Regular, CTA Bilaterally Gastrointestinal: Yes: Normal Bowel Sounds, Soft Neurological: Yes: Alert Labs: CBC, BMP 08/09/16 09:10 08/09/16 09:10 INR, PTT INR Cancelled 08/08/16 02:58 Assessment/Plan - Problems (1) Hallucination, visual Assessment/Plan: psych eval r/o uti Code(s): R44.1 - VISUAL HALLUCINATIONS (2) Altered mental status Assessment/Plan: maybe sec to infectious eitology check UA psych eval wrist restraints abx possible uti? ct head no acute changes chronic sinusitis Code(s): R41.82 - ALTERED MENTAL STATUS, UNSPECIFIED Qualifiers: Altered mental status type: disorientation Qualified Code(s): R41.0 - Disorientation, unspecified (3) Sinusitis Assessment/Plan: chronic on ct scan Code(s): J32.9 - CHRONIC SINUSITIS, UNSPECIFIED Qualifiers: Sinusitis location: maxillary Chronicity: chronic Qualified Code(s) : J32.0 - Chronic maxillary sinusitis (4) Acute renal insufficiency Assessment/Plan: ivfluids Code(s): N28.9 - DISORDER OF KIDNEY AND URETER, UNSPECIFIED
--- NOTE | 2016-08-09 12:11 | PN ---
Progress Note (short form) - Note Progress Note: 08/09 Patient seen at bedside Still confused but slightly more calm than yesterday Knows name and follows commands 80 year old man, history of stroke recently discharged, hypertension, hyperlipidemia, gout, TIAx2, GI bleed, presents to the ED with left knee pain for one day. Since the time of his stroke, patient has been unable to walk. She states that he has been increasingly confused, appears to be in a delirious state, seeing objects and bugs that aren't there. At times he becmoes aggressive and combative with staff at the nursing facility he was discharged to. No new weakness or new focal findings. 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 Cardio/Vascular: Yes: HTN, Hyperlipdemia Pulmonary: Yes: Asthma Psych: Yes: Anxiety, Depression - Alcohol/Substance Use Hx Alcohol Use: No - Smoking History Smoking history: Former smoker Have you smoked in the past 12 months: No Aproximately how many cigarettes per day: 0 - Social History Usual Living Arrangement: Long-Term Home Medications - Allergies Allergies/Adverse Reactions: Allergies Allergy/AdvReac Type Severity Reaction Status Date / Time Penicillins Allergy Mild Nausea Verified 08/07/16 23:45 - Home Medications Home Medications: Ambulatory Orders Allopurinol [Zyloprim -] 300 mg PO DAILY 09/24/14 Atorvastatin Ca [Lipitor] 20 mg PO HS 09/24/14 Pantoprazole Sodium [Protonix -] 40 mg PO DAILY #14 tablet.ec 07/22/16 Quetiapine Fumarate [Seroquel -] 25 mg PO HS #20 tablet 07/22/16 Aspirin [ASA -] 81 mg PO DAILY 08/02/16 Atenolol [Tenormin] 50 mg PO DAILY 08/02/16 Fluoxetine HCl Liquid [Prozac 20mg/5mL Oral Solution -] 60 mg PO DAILY 08/02/16 Hydroxyurea [Hydrea 500Mg Capsule -] 500 mg PO ASDIR 08/02/16 Alprazolam [Xanax] 1 mg PO BID tablet MDD 2 08/05/16 Olanzapine [Zyprexa -] 10 mg PO HS #30 tablet 08/05/16 Family Disease History - Family Disease History Family Disease History: Heart Disease: Mother (CHF) Physical Exam Constitutional: Yes: No Distress Eyes: Yes: Conjunctiva Clear, EOM Intact HENT: Yes: Atraumatic, Normocephalic Neurological: Yes: Cran Nerves II-XII Intact (awake, alert, knows name, follows commands, EOMI, blinks to visual thread, face symmetric, tongue in midline Moving all extremities spontaneously) Problem List - Problems (1) Altered mental status Code(s): R41.82 - ALTERED MENTAL STATUS, UNSPECIFIED Qualifiers: Altered mental status type: disorientation Qualified Code(s): R41.0 - Disorientation, unspecified (2) Hallucination, visual Code(s): R44.1 - VISUAL HALLUCINATIONS Assessment/Plan 80 year old man, history of stroke recently discharged, hypertension, hyperlipidemia, gout, TIAx2, GI bleed, presents to the ED with left knee pain for one day. Since the time of his stroke, patient has been unable to walk. She states that he has been increasingly confused, appears to be in a delirious state, seeing objects and bugs that aren't there. At times he becmoes aggressive and combative with staff at the nursing facility he was discharged to. No new weakness or new focal findings. CT head no acute findings Some improvement in todays exam Impression Delirium, possible metabolic encephalopathy MRI brain pending Continue with aspirin and statin Continue supportive care Problem List - Problems (1) Altered mental status Code(s): R41.82 - ALTERED MENTAL STATUS, UNSPECIFIED Qualifiers: Altered mental status type: disorientation Qualified Code(s): R41.0 - Disorientation, unspecified (2) Hallucination, visual Code(s): R44.1 - VISUAL HALLUCINATIONS
--- NOTE | 2016-08-09 12:34 | PN ---
Progress Note (short form) - Note Progress Note: Psych:Patient appears to be responding to currant meds. Nurse reports that he has been talking normally and less agitated. not hallucinating at this time. Plan: continue with currant meds.
[2016-08-09] MEDS ORDERED: ACETAMINOPHEN 325 MG TABLET (FP) ONE (21:04)
[2016-08-09] MEDS: ATORVASTATIN CA 20 MG TABLET (FP) PO SCH (21:11)
[2016-08-09] MEDS: OLANZapine 5 MG TABLET PO SCH (21:11)
[2016-08-10] MEDS: LEVOFLOXACIN 250 MG IVPB 50 ML IVPB SCH (08:10)
[2016-08-10] MEDS: HEPARIN NA (PORCINE) 5,000 UNITS/ML 1ML VIAL SQ SCH ×2 (09:00→21:00)
[2016-08-10] MEDS: ASPIRIN 81 MG CHEWABLE TABLETS PO SCH (09:00)
[2016-08-10] MEDS: ALLOPURINOL 300 MG TABLET (FP) PO SCH (09:00)
[2016-08-10] MEDS: PANTOPRAZOLE 40 MG TABLET (FP) PO SCH (09:00)
[2016-08-10] MEDS: ALPRAZolam 2 MG TABLET PO SCH ×2 (09:00→21:00)
[2016-08-10] MEDS: ATENOLOL 50 MG TABLET (FP) PO SCH (09:00)
[2016-08-10] MEDS ORDERED: PT OWN MED DRAWER 7, Y5N ONE (09:07)
[2016-08-10] MEDS: FLUoxetine HCL 20 MG CAPSULE (FP) PO SCH (09:08)
[2016-08-10 09:41] LABS: BASOPHIL 1.2 % (0-2.0); EOSINOPHIL 8.4 % (0-4.5); MCHC 33.2 g/dl (32.0-35.9); MEAN CELL VOLUME 96.3 fl (80-96); MEAN PLT VOLUME 7.9 fl (7.5-11.1); NEUTROPHILS 50.8 % (42.8-82.8); PLATELET COUNT 242 K/MM3 (134-434); WHITE BLOOD COUNT 6.6 K/mm3 (4.0-10.0)
[2016-08-10 10:32] LABS: ALBUMIN 3.2 g/dl (3.4-5.0); BILIRUBIN,TOTAL 0.7 mg/dL (0.2-1.0); CALCIUM 8.7 mg/dL (8.5-10.1); CREATININE 1.9 mg/dL (0.7-1.3); TOT PROT 6.9 g/dl (6.4-8.2)
--- NOTE | 2016-08-10 12:23 | PN ---
Progress Note (short form) - Note Progress Note: 08/10 Patient appears calm More lucid today Knows name, and month, follows commands MRI brain no acute findings 08/09 Patient seen at bedside Still confused but slightly more calm than yesterday Knows name and follows commands 80 year old man, history of stroke recently discharged, hypertension, hyperlipidemia, gout, TIAx2, GI bleed, presents to the ED with left knee pain for one day. Since the time of his stroke, patient has been unable to walk. She states that he has been increasingly confused, appears to be in a delirious state, seeing objects and bugs that aren't there. At times he becmoes aggressive and combative with staff at the nursing facility he was discharged to. No new weakness or new focal findings. 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 Cardio/Vascular: Yes: HTN, Hyperlipdemia Pulmonary: Yes: Asthma Psych: Yes: Anxiety, Depression - Alcohol/Substance Use Hx Alcohol Use: No - Smoking History Smoking history: Former smoker Have you smoked in the past 12 months: No Aproximately how many cigarettes per day: 0 - Social History Usual Living Arrangement: Long Term Home Medications - Allergies Allergies/Adverse Reactions: Allergies Allergy/AdvReac Type Severity Reaction Status Date / Time Penicillins Allergy Mild Nausea Verified 08/07/16 23:45 - Home Medications Home Medications: Ambulatory Orders Allopurinol [Zyloprim -] 300 mg PO DAILY 09/24/14 Atorvastatin Ca [Lipitor] 20 mg PO HS 09/24/14 Pantoprazole Sodium [Protonix -] 40 mg PO DAILY #14 tablet.ec 07/22/16 Quetiapine Fumarate [Seroquel -] 25 mg PO HS #20 tablet 07/22/16 Aspirin [ASA -] 81 mg PO DAILY 08/02/16 Atenolol [Tenormin] 50 mg PO DAILY 08/02/16 Fluoxetine HCl Liquid [Prozac 20mg/5mL Oral Solution -] 60 mg PO DAILY 08/02/16 Hydroxyurea [Hydrea 500Mg Capsule -] 500 mg PO ASDIR 08/02/16 Alprazolam [Xanax] 1 mg PO BID tablet MDD 2 08/05/16 Olanzapine [Zyprexa -] 10 mg PO HS #30 tablet 08/05/16 Family Disease History - Family Disease History Family Disease History: Heart Disease: Mother (CHF) Physical Exam Constitutional: Yes: No Distress Eyes: Yes: Conjunctiva Clear, EOM Intact HENT: Yes: Atraumatic, Normocephalic Neurological: Yes: Cran Nerves II-XII Intact (awake, alert, knows name, follows commands, EOMI, blinks to visual thread, face symmetric, tongue in midline Moving all extremities spontaneously) Problem List - Problems (1) Altered mental status Code(s): R41.82 - ALTERED MENTAL STATUS, UNSPECIFIED Qualifiers: Altered mental status type: disorientation Qualified Code(s): R41.0 - Disorientation, unspecified (2) Hallucination, visual Code(s): R44.1 - VISUAL HALLUCINATIONS Assessment/Plan 80 year old man, history of stroke recently discharged, hypertension, hyperlipidemia, gout, TIAx2, GI bleed, presents to the ED with left knee pain for one day. Since the time of his stroke, patient has been unable to walk. She states that he has been increasingly confused, appears to be in a delirious state, seeing objects and bugs that aren't there. At times he becmoes aggressive and combative with staff at the nursing facility he was discharged to. No new weakness or new focal findings. CT head no acute findings MRI brain no acute infarct Impression Delirium, possible metabolic encephalopathy Mentation appears slowly improved Continue with aspirin and statin Continue supportive care Problem List - Problems (1) Altered mental status Code(s): R41.82 - ALTERED MENTAL STATUS, UNSPECIFIED Qualifiers: Altered mental status type: disorientation Qualified Code(s): R41.0 - Disorientation, unspecified (2) Hallucination, visual Code(s): R44.1 - VISUAL HALLUCINATIONS
--- NOTE | 2016-08-10 12:32 | PN ---
Progress Note, Physician - Current Medication List Current Medications: Active Medications Acetaminophen (Tylenol -) 650 mg PO Q4H PRN PRN Reason: FEVER OR PAIN Allopurinol (Zyloprim -) 300 mg PO DAILY [facility] Last Admin: 08/10/16 09:00 Dose: 300 mg Alprazolam (Xanax -) 1 mg PO BID [facility] Last Admin: 08/10/16 09:00 Dose: 1 mg Aspirin (Asa -) 81 mg PO DAILY [facility] Last Admin: 08/10/16 09:00 Dose: 81 mg Atenolol (Tenormin -) 50 mg PO DAILY [facility] Last Admin: 08/10/16 09:00 Dose: 50 mg Atorvastatin Calcium (Lipitor -) 20 mg PO HS [facility] Last Admin: 08/09/16 21:11 Dose: 20 mg Fluoxetine HCl (Prozac -) 60 mg PO DAILY [facility] Last Admin: 08/10/16 09:08 Dose: 60 mg Heparin Sodium (Porcine) (Heparin -) 5,000 unit SQ BID [facility] Last Admin: 08/10/16 09:00 Dose: 5,000 unit Hydroxyurea (Hydrea -) 500 mg PO TuTa [facility] Levofloxacin (Levaquin 250 Mg Premixed Ivpb -) 50 mls @ 50 mls/hr IVPB DAILY@ 0800 [facility] Last Admin: 08/10/16 08:10 Dose: 50 mls/hr Olanzapine (Zyprexa -) 15 mg PO HS [facility] Last Admin: 08/09/16 21:11 Dose: 15 mg Pantoprazole Sodium (Protonix -) 40 mg PO DAILY [facility] Last Admin: 08/10/16 09:00 Dose: 40 mg - Objective Vital Signs: Vital Signs Temperature 98.0 F 08/10/16 08:46 Pulse Rate 59 L 08/10/16 08:46 Respiratory Rate 18 08/10/16 08:46 Blood Pressure 165/70 08/10/16 08:46 O2 Sat by Pulse Oximetry (%) 94 L 08/10/16 09:00 Labs: CBC, BMP 08/10/16 09:20 08/10/16 09:20 INR, PTT INR Cancelled 08/08/16 02:58
--- NOTE | 2016-08-10 13:47 | PN ---
Progress Note, Physician History of Present Illness: NO CHANGE PERIODS OF AGITATION - Current Medication List Current Medications: Active Medications Acetaminophen (Tylenol -) 650 mg PO Q4H PRN PRN Reason: FEVER OR PAIN Allopurinol (Zyloprim -) 300 mg PO DAILY [facility] Last Admin: 08/10/16 09:00 Dose: 300 mg Alprazolam (Xanax -) 1 mg PO BID [facility] Last Admin: 08/10/16 09:00 Dose: 1 mg Aspirin (Asa -) 81 mg PO DAILY [facility] Last Admin: 08/10/16 09:00 Dose: 81 mg Atenolol (Tenormin -) 50 mg PO DAILY [facility] Last Admin: 08/10/16 09:00 Dose: 50 mg Atorvastatin Calcium (Lipitor -) 20 mg PO [facility] Last Admin: 08/09/16 21:11 Dose: 20 mg Fluoxetine HCl (Prozac -) 60 mg PO DAILY [facility] Last Admin: 08/10/16 09:08 Dose: 60 mg Heparin Sodium (Porcine) (Heparin -) 5,000 unit SQ BID [facility] Last Admin: 08/10/16 09:00 Dose: 5,000 unit Hydroxyurea (Hydrea -) 500 mg PO [facility] Levofloxacin (Levaquin 250 Mg Premixed Ivpb -) 50 mls @ 50 mls/hr IVPB DAILY@ 0800 [facility] Last Admin: 08/10/16 08:10 Dose: 50 mls/hr Olanzapine (Zyprexa -) 15 mg PO HS [facility] Last Admin: 08/09/16 21:11 Dose: 15 mg Pantoprazole Sodium (Protonix -) 40 mg PO DAILY [facility] Last Admin: 08/10/16 09:00 Dose: 40 mg - Objective Vital Signs: Vital Signs Temperature 98.0 F 08/10/16 08:46 Pulse Rate 59 L 08/10/16 08:46 Respiratory Rate 18 08/10/16 08:46 Blood Pressure 165/70 08/10/16 08:46 O2 Sat by Pulse Oximetry (%) 94 L 08/10/16 09:00 Cardiovascular: Yes: Regular Rate and Rhythm Respiratory: Yes: Regular, CTA Bilaterally Gastrointestinal: Yes: Normal Bowel Sounds, Soft Neurological: Yes: Alert, Confusion Labs: CBC, BMP 08/10/16 09:20 08/10/16 09:20 INR, PTT INR Cancelled 08/08/16 02:58 Assessment/Plan - Problems (1) Hallucination, visual Assessment/Plan: psych eval r/o uti Code(s): R44.1 - VISUAL HALLUCINATIONS (2) Altered mental status Assessment/Plan: maybe sec to infectious eitology check UA psych eval wrist restraints abx possible uti? ct head no acute changes chronic sinusitis MRI NO ACUTE CVA Code(s): R41.82 - ALTERED MENTAL STATUS, UNSPECIFIED Qualifiers: Altered mental status type: disorientation Qualified Code(s): R41.0 - Disorientation, unspecified (3) Sinusitis Assessment/Plan: chronic on ct scan FINISH COURSE OF [place]EVA[place]INN Code(s): J32.9 - CHRONIC SINUSITIS, UNSPECIFIED Qualifiers: Sinusitis location: maxillary Chronicity: chronic Qualified Code(s) : J32.0 - Chronic maxillary sinusitis (4) Acute renal insufficiency Assessment/Plan: DC iv fluids Code(s): N28.9 - DISORDER OF KIDNEY AND URETER, UNSPECIFIED
[2016-08-10 15:05] LABS: TROPONIN I 0.04 ng/ml (0.00-0.05)
[2016-08-10] MEDS: ATORVASTATIN CA 20 MG TABLET (FP) PO SCH (21:00)
[2016-08-10] MEDS: OLANZapine 5 MG TABLET PO SCH (21:00)
[2016-08-11] MEDS ORDERED: LEVOFLOXACIN 250 MG TABLET (FP) PO SCH (06:00)
[2016-08-11] MEDS: ALBUTEROL SO4 0.083% IH SOL 2.5 MG/3 ML VIAL.NEB. NEB PRN (07:11)
[2016-08-11] MEDS: ALLOPURINOL 300 MG TABLET (FP) PO SCH (09:29)
[2016-08-11] MEDS: ATENOLOL 50 MG TABLET (FP) PO SCH (09:29)
[2016-08-11] MEDS: PANTOPRAZOLE 40 MG TABLET (FP) PO SCH (09:30)
[2016-08-11] MEDS: ASPIRIN 81 MG CHEWABLE TABLETS PO SCH (09:30)
[2016-08-11] MEDS: ALPRAZolam 2 MG TABLET PO SCH ×3 (09:31→21:32)
[2016-08-11] MEDS: HEPARIN NA (PORCINE) 5,000 UNITS/ML 1ML VIAL SQ SCH ×3 (09:32→21:32)
[2016-08-11] MEDS ORDERED: PT OWN MED DRAWER 7, Y5N ONE ×2 (09:35→09:42)
[2016-08-11] MEDS: FLUoxetine HCL 20 MG CAPSULE (FP) PO SCH ×2 (09:41→11:03)
--- NOTE | 2016-08-11 11:58 | PN ---
Progress Note, Physician Chief Complaint: in bed sleepy but responds to his name, folllows commands estefanía rodriguez - Current Medication List Current Medications: Active Medications Acetaminophen (Tylenol -) 650 mg PO Q4H PRN PRN Reason: FEVER OR PAIN Albuterol Sulfate (Ventolin 0.083% Nebulizer Soln -) 1 amp NEB Q6H PRN PRN Reason: SHORT OF BREATH/WHEEZING Last Admin: 08/11/16 07:11 Dose: 1 amp Allopurinol (Zyloprim -) 300 mg PO DAILY [facility] Last Admin: 08/11/16 09:29 Dose: 300 mg Alprazolam (Xanax -) 1 mg PO BID [facility] Last Admin: 08/11/16 11:03 Dose: Not Given Aspirin (Asa -) 81 mg PO DAILY [facility] Last Admin: 08/11/16 09:30 Dose: 81 mg Atenolol (Tenormin -) 50 mg PO DAILY [facility] Last Admin: 08/11/16 09:29 Dose: 50 mg Atorvastatin Calcium (Lipitor -) 20 mg PO [facility] Last Admin: 08/10/16 21:00 Dose: 20 mg Fluoxetine HCl (Prozac -) 60 mg PO DAILY [facility] Last Admin: 08/11/16 11:03 Dose: Not Given Heparin Sodium (Porcine) (Heparin -) 5,000 unit SQ BID [facility] Last Admin: 08/11/16 11:02 Dose: Not Given Hydroxyurea (Hydrea -) 500 mg PO [facility] Levofloxacin (Levaquin -) 250 mg PO DAILY@0600 [facility] Last Admin: 08/11/16 06:21 Dose: 250 mg Olanzapine (Zyprexa -) 15 mg PO [facility] Last Admin: 08/10/16 21:00 Dose: 15 mg Pantoprazole Sodium (Protonix -) 40 mg PO DAILY [facility] Last Admin: 08/11/16 09:30 Dose: 40 mg - Objective Vital Signs: Vital Signs Temperature 97.8 F 08/11/16 10:00 Pulse Rate 62 08/11/16 10:00 Respiratory Rate 20 08/11/16 10:00 Blood Pressure 134/78 08/11/16 10:00 O2 Sat by Pulse Oximetry (%) 94 L 08/11/16 09:00 Constitutional: Yes: Calm Cardiovascular: Yes: Regular Rate and Rhythm, S1, S2 Respiratory: Yes: Rhonchi Gastrointestinal: Yes: Normal Bowel Sounds, Soft Edema: No Labs: CBC, BMP 08/10/16 09:20 08/10/16 09:20 INR, PTT INR Cancelled 08/08/16 02:58 Problem List - Problems (1) Abnormal chest x-ray Assessment/Plan: pulm eval Code(s): R93.8 - ABNORMAL FINDINGS ON DIAGNOSTIC IMAGING OF BODY STRUCTURES (2) Hallucination, visual Assessment/Plan: psych eval noted zyprexa imcreasd now more halicnations Code(s): R44.1 - VISUAL HALLUCINATIONS (3) Altered mental status Assessment/Plan: MRI shows no acute changes 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 Code(s): R41.82 - ALTERED MENTAL STATUS, UNSPECIFIED Qualifiers: Altered mental status type: disorientation Qualified Code(s): R41.0 - Disorientation, unspecified (4) Sinusitis Assessment/Plan: chronic on ct scan Code(s): J32.9 - CHRONIC SINUSITIS, UNSPECIFIED Qualifiers: Sinusitis location: maxillary Chronicity: chronic Qualified Code(s) : J32.0 - Chronic maxillary sinusitis (5) Acute renal insufficiency Assessment/Plan: renal sono renal eval Code(s): N28.9 - DISORDER OF KIDNEY AND URETER, UNSPECIFIED
--- NOTE | 2016-08-11 12:37 | CONSULT ---
Admitting History and Physical - Primary Care Physician PCP: Tish Naidu - Admission History of Present Illness: Per EMR: "Admitting History and Physical - Primary Care Physician PCP: Jose De Leon - Admission History of Present Illness: The patient is a 80 year old male, with a significant past medical history of CVA, HTN, hyperlipidemia, gout, anxiety/depression, TIA X2, ataxia, and GI bleed , who presents to the emergency department complaining of left knee pain for 1 day. As per , the patiently was recently treated for a CVA on 08/02/16 and discharged yesterday. Since the CVA, the patient has been unable to walk. She states the patient has been increasingly confused and increasingly aggressive with other custodial residents since yesterday. The reports the patient has been experiencing a cough, residual of recent pneumonia. The patient denies any fever, chills, headache, dizziness, or SOB. The patient denies any nausea, vomiting, diarrhea, constipation, or changes in urination patterns. per patient family he has been hallucinating and combative for last two days , seeing ants on the nielsen and other objects.he was sent in he was combative and was found on the floor with abrasion no both knees family concerned about this change in mental status in ER he got haldol and levaquin" Selected Entries 08/10/16 08/10/16 08/10/16 09:47 13:59 18:56 Breakfast 75% Diet Tolerated Well Well Intake, Oral 200 200 Amount Lunch 75% 75% Supper 75% 08/10/16 08/10/16 08/11/16 22:00 23:42 12:10 Breakfast 75% Diet Tolerated Well Well Well Intake, Oral 300 Amount Lunch 75% 75% Supper 75% 75% Laboratory Tests 08/09/16 08/10/16 09:10 09:20 WBC 6.2 D 6.6 "08/10/16 19:39 - Nursing Note by Edyta Goldstein Acct Num: [id number] : 1935 Patient Age: 80 PATIENT'S FAMILY IN ATTENDANCE AND FED PATIENT SOME DINNER. AFTER FAMILY NOTED PATIENT BECAME CONGESTED AND STARTED COUGHING. O2 SAT ON RA NOTED AT 91%, PATIENT REPOSITIONED AND O2 2L VIA NC APPLIED. DR. DE LEON NOTIFIED, ALBUTEROL 1 UNIT DOSE Q6H PRN, O2 2L VIA NC AND CXR IN AM ORDERED. PATIENT STATED FEELS BETTER. " Last seen by me 07/23/15 "Tolerating pureed diet and nectar thick liquid, with constant supervision needed due to impaired impulse control. Plan is for d/c home. Reviewed rec with again, regarding constant supervision/assistancew/ impulse control during PO intake, blenderizing food, thickened liquids. Pt' demonstrated understanding and compliance." Too lethargic to assess. To follow as becomes more alert. Hold PO unless sufficiently arousable. 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 Cardiovascular: Yes: HTN, Hyperlipdemia Pulmonary: Yes: Asthma Psych: Yes: Anxiety, Depression - Smoking History Smoking history: Former smoker Have you smoked in the past 12 months: No Aproximately how many cigarettes per day: 0 - Alcohol/Substance Use Hx Alcohol Use: No History - Admission Reason For Visit: AMS SINUSITIS - Diagnostics Modified Barium Swallow: Report Reviewed (07/16/15) - Hearing Hearing: Normal Hearing Aide: No Speech Evaluation - Communication Primary Language: TAMAZIGHT - Speech Characteristics Articulation: Yes: Imprecise - Language/Auditory Comprehension Observation: Comprehends Conversational Speech: Yes - Swallow Evaluation/Bedside Assessment Current Nutritional Intake: Dysphagia Pureed, [place] Textured Liquids A-P Transit: Impaired Recommendations - Speech Evaluation, Impression/Plan Impression: Chart reviewed. Attempted to evaluate pt. Too lethargic to assess. To follow as becomes more alert. Hold PO unless sufficiently arousable.
--- NOTE | 2016-08-11 13:25 | CONSULT ---
Consult Consult Specialty:: Nephrology ( Drs. Akers/ James) - History of Present Illness Chief Complaint: Thank you for the consult referral. This is a 80 y/o male admitted with acute confusion and altered mental status. The patient has h/o multiple hospitalizations, includinga recent discharge after an admission for CVA. The patient has past h/o HTN, Hyperlipidemia, Gout, TIA, Thrombocytosis. Renal evaluation for abnormal renal functions. The patient is on antibiotics for suspected UTI. 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 Cardio/Vascular: Yes: HTN, Hyperlipdemia Pulmonary: Yes: Asthma Infectious Disease: Yes: Other (UTI) Psych: Yes: Anxiety, Depression - Alcohol/Substance Use Hx Alcohol Use: No - Smoking History Smoking history: Former smoker Have you smoked in the past 12 months: No Aproximately how many cigarettes per day: 0 - Social History Usual Living Arrangement: Assisted Home Medications - Allergies Allergies/Adverse Reactions: Allergies Allergy/AdvReac Type Severity Reaction Status Date / Time Penicillins Allergy Mild Nausea Verified 08/07/16 23:45 - Home Medications Home Medications: Ambulatory Orders Allopurinol [Zyloprim -] 300 mg PO DAILY 09/24/14 Atorvastatin Ca [Lipitor] 20 mg PO HS 09/24/14 Pantoprazole Sodium [Protonix -] 40 mg PO DAILY #14 tablet.ec 07/22/16 Quetiapine Fumarate [Seroquel -] 25 mg PO HS #20 tablet 07/22/16 Aspirin [ASA -] 81 mg PO DAILY 08/02/16 Atenolol [Tenormin] 50 mg PO DAILY 08/02/16 Fluoxetine HCl Liquid [Prozac 20mg/5mL Oral Solution -] 60 mg PO DAILY 08/02/16 Hydroxyurea [Hydrea 500Mg Capsule -] 500 mg PO ASDIR 08/02/16 Alprazolam [Xanax] 1 mg PO BID tablet MDD 2 08/05/16 Olanzapine [Zyprexa -] 10 mg PO HS #30 tablet 08/05/16 Family Disease History - Family Disease History Family Disease History: Heart Disease: Mother (CHF) Review of Systems - Review of Systems Neck: denies: No Symptoms Cardiovascular: denies: Chest Pain Respiratory: denies: No Symptoms Genitourinary: denies: Burning Musculoskeletal: denies: Joint Pain (Knee) Neurological: reports: Change in Speech, Confusion, Incoordination, Weakness Psychiatric: reports: Anxiety Physical Exam Vital Signs: Vital Signs Temperature 97.8 F 08/11/16 10:00 Pulse Rate 62 08/11/16 10:00 Respiratory Rate 20 08/11/16 10:00 Blood Pressure 134/78 08/11/16 10:00 O2 Sat by Pulse Oximetry (%) 94 L 08/11/16 09:00 Constitutional: Yes: Calm, Anxious Eyes: Yes: Conjunctiva Clear HENT: Yes: Normocephalic Neck: Yes: Supple Cardiovascular: Yes: Regular Rate and Rhythm, S1, S2 Respiratory: Yes: Regular, CTA Bilaterally Gastrointestinal: Yes: Normal Bowel Sounds, Soft Renal/: Yes: Other (Normal abd/ exam) Neurological: Yes: Lethargy. No: Alert, Oriented Psychiatric: Yes: Agitated. No: Alert, Oriented Labs: CBC, BMP 08/10/16 09:20 08/10/16 09:20 Problem List - Problems (1) Altered mental status Code(s): R41.82 - ALTERED MENTAL STATUS, UNSPECIFIED Qualifiers: Altered mental status type: disorientation Qualified Code(s): R41.0 - Disorientation, unspecified (2) Hallucination, visual Code(s): R44.1 - VISUAL HALLUCINATIONS (3) Sinusitis Code(s): J32.9 - CHRONIC SINUSITIS, UNSPECIFIED Qualifiers: Sinusitis location: maxillary Chronicity: chronic Qualified Code(s) : J32.0 - Chronic maxillary sinusitis (4) Abnormal chest x-ray Code(s): R93.8 - ABNORMAL FINDINGS ON DIAGNOSTIC IMAGING OF BODY STRUCTURES (5) Acute renal insufficiency Code(s): N28.9 - DISORDER OF KIDNEY AND URETER, UNSPECIFIED (6) Anxiety and depression Code(s): F41.9 - ANXIETY DISORDER, UNSPECIFIED F32.9 - MAJOR DEPRESSIVE DISORDER, SINGLE EPISODE, UNSPECIFIED (7) CVA (cerebral vascular accident) Code(s): I63.9 - CEREBRAL INFARCTION, UNSPECIFIED Qualifiers: CVA mechanism: unspecified Qualified Code(s): I63.9 - Cerebral infarction, unspecified (8) Confusion state Code(s): F44.89 - OTHER DISSOCIATIVE AND CONVERSION DISORDERS (9) Dementia Code(s): F03.90 - UNSPECIFIED DEMENTIA WITHOUT BEHAVIORAL DISTURBANCE (10) HLD (hyperlipidemia) Code(s): E78.5 - HYPERLIPIDEMIA, UNSPECIFIED Qualifiers: Hyperlipidemia type: pure hypercholesterolemia Qualified Code(s): E78.0 - Pure hypercholesterolemia (11) HTN (hypertension) Code(s): I10 - ESSENTIAL (PRIMARY) HYPERTENSION Qualifiers: Hypertension type: essential hypertension Qualified Code(s): I10 - Essential (primary) hypertension (12) Knee pain Code(s): M25.569 - PAIN IN UNSPECIFIED KNEE (13) Thrombocytosis Code(s): D47.3 - ESSENTIAL (HEMORRHAGIC) THROMBOCYTHEMIA (14) Chronic kidney disease (CKD) Code(s): N18.9 - CHRONIC KIDNEY DISEASE, UNSPECIFIED Assessment/Plan 80 y/o male admitted with altered mental status. 1. Acute Kidney Injury, most likely hemodynamic effects of multiple systemic conditions occuring concurrently. 2. The patient has underlying Chronic Kideny disease. 3. Acute CVA and Organic mental syndrome...w/u in progress. 4. Hypertension... Reasonably well controlled. 5. Thrombocytosis...on Hydrxyurea. Plan: 1. Continue the antibx as ordered 2. Basic w/u as ordered. 3. Avoid Nephrotoxins wherever possible. 4. monitor the renal functions closely with you. Thanks again. Britt Akers MD
--- NOTE | 2016-08-11 13:55 | CONSULT ---
Consult Consult Specialty:: PULM/CCM Referred by:: DARIUS Reason for Consultation:: Abnormal CXR - History of Present Illness Chief Complaint: Initially admitted due to knee pain History of Present Illness: 80 M, with listed medical history. Initially admitted via the ER due to knee pain. Patient being worked up for confusion and AMS. Called for abnormal CXR: Rotated / poor inhalation / possible small left base effusion/atelectasis Patient is confused and is not able to provide an accurate history. 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 Cardio/Vascular: Yes: HTN, Hyperlipdemia Pulmonary: Yes: Asthma Infectious Disease: Yes: Other (UTI) Psych: Yes: Anxiety, Depression - Alcohol/Substance Use Hx Alcohol Use: No - Smoking History Smoking history: Former smoker Have you smoked in the past 12 months: No Aproximately how many cigarettes per day: 0 - Social History Usual Living Arrangement: [facility] Home Medications - Allergies Allergies/Adverse Reactions: Allergies Allergy/AdvReac Type Severity Reaction Status Date / Time Penicillins Allergy Mild Nausea Verified 08/07/16 23:45 - Home Medications Home Medications: Ambulatory Orders Allopurinol [Zyloprim -] 300 mg PO DAILY 09/24/14 Atorvastatin Ca [Lipitor] 20 mg PO HS 09/24/14 Pantoprazole Sodium [Protonix -] 40 mg PO DAILY #14 tablet.ec 07/22/16 Quetiapine Fumarate [Seroquel -] 25 mg PO HS #20 tablet 07/22/16 Aspirin [ASA -] 81 mg PO DAILY 08/02/16 Atenolol [Tenormin] 50 mg PO DAILY 08/02/16 Fluoxetine HCl Liquid [Prozac 20mg/5mL Oral Solution -] 60 mg PO DAILY 08/02/16 Hydroxyurea [Hydrea 500Mg Capsule -] 500 mg PO ASDIR 08/02/16 Alprazolam [Xanax] 1 mg PO BID tablet MDD 2 08/05/16 Olanzapine [Zyprexa -] 10 mg PO HS #30 tablet 08/05/16 Family Disease History - Family Disease History Family Disease History: Heart Disease: Mother (CHF) Review of Systems Unable to obtain ROS, reason: Not able to provide Physical Exam Vital Signs: Vital Signs Temperature 97.8 F 08/11/16 10:00 Pulse Rate 62 08/11/16 10:00 Respiratory Rate 20 08/11/16 10:00 Blood Pressure 134/78 08/11/16 10:00 O2 Sat by Pulse Oximetry (%) 94 L 08/11/16 09:00 Constitutional: Yes: No Distress, Other (confused) Eyes: Yes: Conjunctiva Clear, EOM Intact HENT: Yes: Atraumatic, Normocephalic Neck: Yes: Supple, Trachea Midline Cardiovascular: Yes: Regular Rate and Rhythm Respiratory: Yes: Diminished, On Nasal O2. No: Accessory Muscle Use, Rales, Rhonchi, SOB, Stridor, Tachypnea, Wheezes Gastrointestinal: Yes: Normal Bowel Sounds, Soft ...Rectal Exam: Yes: Deferred Renal/: Yes: WNL Musculoskeletal: Yes: WNL Extremities: Yes: WNL Edema: No Peripheral Pulses WNL: Yes Integumentary: Yes: WNL Neurological: Yes: Alert Psychiatric: Yes: Alert Labs: CBC, BMP 08/10/16 09:20 08/10/16 09:20 Imaging - Results Chest X-ray: Report Reviewed, Image Reviewed Problem List - Problems (1) Altered mental status Code(s): R41.82 - ALTERED MENTAL STATUS, UNSPECIFIED Qualifiers: Altered mental status type: disorientation Qualified Code(s): R41.0 - Disorientation, unspecified (2) Chronic kidney disease (CKD) Code(s): N18.9 - CHRONIC KIDNEY DISEASE, UNSPECIFIED (3) Hallucination, visual Code(s): R44.1 - VISUAL HALLUCINATIONS (4) Sinusitis Code(s): J32.9 - CHRONIC SINUSITIS, UNSPECIFIED Qualifiers: Sinusitis location: maxillary Chronicity: chronic Qualified Code(s) : J32.0 - Chronic maxillary sinusitis (5) Abnormal chest x-ray Code(s): R93.8 - ABNORMAL FINDINGS ON DIAGNOSTIC IMAGING OF BODY STRUCTURES (6) Acute renal insufficiency Code(s): N28.9 - DISORDER OF KIDNEY AND URETER, UNSPECIFIED (7) Anxiety and depression Code(s): F41.9 - ANXIETY DISORDER, UNSPECIFIED F32.9 - MAJOR DEPRESSIVE DISORDER, SINGLE EPISODE, UNSPECIFIED (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 Code(s): I69.320 - APHASIA FOLLOWING CEREBRAL INFARCTION (9) CVA (cerebral vascular accident) Code(s): I63.9 - CEREBRAL INFARCTION, UNSPECIFIED Qualifiers: CVA mechanism: unspecified Qualified Code(s): I63.9 - Cerebral infarction, unspecified (10) Confusion state Code(s): F44.89 - OTHER DISSOCIATIVE AND CONVERSION DISORDERS (11) Dementia Code(s): F03.90 - UNSPECIFIED DEMENTIA WITHOUT BEHAVIORAL DISTURBANCE (12) Frequent falls Code(s): R29.6 - REPEATED FALLS (13) GERD (gastroesophageal reflux disease) Code(s): K21.9 - GASTRO-ESOPHAGEAL REFLUX DISEASE WITHOUT ESOPHAGITIS (14) Knee pain Code(s): M25.569 - PAIN IN UNSPECIFIED KNEE (15) Multiple lacunar infarcts Code(s): I63.9 - CEREBRAL INFARCTION, UNSPECIFIED Assessment/Plan PLAN: Do not suspect PNA. No UA but do not have a high suspicion for UTI -> Will D/C levaquin Monitor fever curve / symptoms O2 as needed Fall precautions AMS workup ongoing Doubt patient will be able to perform IS effectively Will follow Depending on SX may repeat CXR in a few days Will follow Thank you. Dr Brooks
--- NOTE | 2016-08-11 15:49 | PN ---
Progress Note, Physician History of Present Illness: Family reports pt remains confused, agitated Wearing estefanía vest Answers simple questions by nodding or shaking head Afebrile WBC WNL BC (-) CXR atelectatic changes - Current Medication List Current Medications: Active Medications Acetaminophen (Tylenol -) 650 mg PO Q4H PRN PRN Reason: FEVER OR PAIN Albuterol Sulfate (Ventolin 0.083% Nebulizer Soln -) 1 amp NEB Q6H PRN PRN Reason: SHORT OF BREATH/WHEEZING Last Admin: 08/11/16 07:11 Dose: 1 amp Allopurinol (Zyloprim -) 300 mg PO DAILY [facility] Last Admin: 08/11/16 09:29 Dose: 300 mg Alprazolam (Xanax -) 1 mg PO BID [facility] Last Admin: 08/11/16 11:03 Dose: Not Given Aspirin (Asa -) 81 mg PO DAILY [facility] Last Admin: 08/11/16 09:30 Dose: 81 mg Atenolol (Tenormin -) 50 mg PO DAILY [facility] Last Admin: 08/11/16 09:29 Dose: 50 mg Atorvastatin Calcium (Lipitor -) 20 mg PO [facility] Last Admin: 08/10/16 21:00 Dose: 20 mg Fluoxetine HCl (Prozac -) 60 mg PO DAILY [facility] Last Admin: 08/11/16 11:03 Dose: Not Given Heparin Sodium (Porcine) (Heparin -) 5,000 unit SQ BID [facility] Last Admin: 08/11/16 11:02 Dose: Not Given Hydroxyure[facility]yd[facility] -) [facility] Olanzapine (Zyprexa -) 15 mg PO [facility] Last Admin: 08/10/16 21:00 Dose: 15 mg Pantoprazole Sodium (Protonix -) 40 mg PO DAILY [facility] Last Admin: 08/11/16 09:30 Dose: 40 mg - Objective Vital Signs: Vital Signs Temperature 98.2 F 08/11/16 15:41 Pulse Rate 53 L 08/11/16 15:41 Respiratory Rate 20 08/11/16 15:41 Blood Pressure 134/78 08/11/16 10:00 O2 Sat by Pulse Oximetry (%) 94 L 08/11/16 09:00 Constitutional: Yes: No Distress, Obese Cardiovascular: Yes: Regular Rate and Rhythm, S1, S2 Respiratory: Yes: CTA Bilaterally Gastrointestinal: Yes: Normal Bowel Sounds, Soft. No: Tenderness Edema: No Labs: CBC, BMP 08/10/16 09:20 08/10/16 09:20 INR, PTT INR Cancelled 08/08/16 02:58 Assessment/Plan Altered mental status, unclear etiology MRI multiple chronic infarcts Agree with stopping levaquin If continued altered mentation would consider LP, but doubt acute bacterial meningitis
[2016-08-11 16:41] LABS: BASOPHIL 1.4 % (0-2.0); EOSINOPHIL 13.4 % (0-4.5); MCH 31.7 pg (25.7-33.7); MCHC 33.2 g/dl (32.0-35.9); MEAN CELL VOLUME 95.5 fl (80-96); MEAN PLT VOLUME 8.5 fl (7.5-11.1); NEUTROPHILS 45.8 % (42.8-82.8); PLATELET COUNT 276 K/MM3 (134-434); RDW 16.9 % (11.9-15.9); WHITE BLOOD COUNT 7.7 K/mm3 (4.0-10.0)
[2016-08-11] MEDS: ACETAMINOPHEN 325 MG TABLET (FP) PO PRN (21:31)
[2016-08-11] MEDS: OLANZapine 5 MG TABLET PO SCH (21:32)
[2016-08-11] MEDS: ATORVASTATIN CA 20 MG TABLET (FP) PO SCH (21:32)
[2016-08-12 08:36] LABS: CALCIUM 8.8 mg/dL (8.5-10.1)
[2016-08-12 08:41] LABS: BILIRUBIN,TOTAL 0.8 mg/dL (0.2-1.0); CREATININE 1.7 mg/dL (0.7-1.3); TOT PROT 6.8 g/dl (6.4-8.2)
--- NOTE | 2016-08-12 09:52 | PN ---
Progress Note, Physician Chief Complaint: more alert awake today know his name and where he is afebrile - Current Medication List Current Medications: Active Medications Acetaminophen (Tylenol -) 650 mg PO Q4H PRN PRN Reason: FEVER OR PAIN Last Admin: 08/11/16 21:31 Dose: 650 mg Albuterol Sulfate (Ventolin 0.083% Nebulizer Soln -) 1 amp NEB Q6H PRN PRN Reason: SHORT OF BREATH/WHEEZING Last Admin: 08/11/16 07:11 Dose: 1 amp Allopurinol (Zyloprim -) 300 mg PO DAILY [facility] Last Admin: 08/11/16 09:29 Dose: 300 mg Alprazolam (Xanax -) 1 mg PO BID [facility] Last Admin: 08/11/16 21:32 Dose: 1 mg Aspirin (Asa -) 81 mg PO DAILY [facility] Last Admin: 08/11/16 09:30 Dose: 81 mg Atenolol (Tenormin -) 50 mg PO DAILY [facility] Last Admin: 08/11/16 09:29 Dose: 50 mg Atorvastatin Calcium (Lipitor -) 20 mg PO [facility] Last Admin: 08/11/16 21:32 Dose: 20 mg Fluoxetine HCl (Prozac -) 60 mg PO DAILY [facility] Last Admin: 08/11/16 11:03 Dose: Not Given Heparin Sodium (Porcine) (Heparin -) 5,000 unit SQ BID [facility] Last Admin: 08/11/16 21:32 Dose: 5,000 unit Hydroxyure[facility] (Hyd[facility] -) [facility] Olanzapine (Zyprexa -) 15 mg PO [facility] Last Admin: 08/11/16 21:32 Dose: 15 mg Pantoprazole Sodium (Protonix -) 40 mg PO DAILY [facility] Last Admin: 08/11/16 09:30 Dose: 40 mg - Objective Vital Signs: Vital Signs Temperature 97.8 F 08/12/16 02:00 Pulse Rate 64 08/12/16 02:00 Respiratory Rate 18 08/12/16 02:00 Blood Pressure 145/63 08/12/16 02:00 O2 Sat by Pulse Oximetry (%) 95 08/11/16 20:00 Constitutional: Yes: Calm Neck: Yes: Trachea Midline Cardiovascular: Yes: Regular Rate and Rhythm, S1, S2 Respiratory: Yes: CTA Bilaterally, Diminished (at bases) Gastrointestinal: Yes: Normal Bowel Sounds, Soft Edema: No Neurological: Yes: Alert, Oriented (to name and place) Labs: CBC, BMP 08/11/16 15:30 08/12/16 07:30 INR, PTT INR Cancelled 08/08/16 02:58 Problem List - Problems (1) Altered mental status Assessment/Plan: much better today MRI shows no acute changes 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 stop abx estefanía vest remove today Code(s): R41.82 - ALTERED MENTAL STATUS, UNSPECIFIED Qualifiers: Altered mental status type: disorientation Qualified Code(s): R41.0 - Disorientation, unspecified (2) Abnormal chest x-ray Assessment/Plan: pulm eval noted Code(s): R93.8 - ABNORMAL FINDINGS ON DIAGNOSTIC IMAGING OF BODY STRUCTURES (3) Hallucination, visual Assessment/Plan: psych eval noted zyprexa imcreasd no more halicnations Code(s): R44.1 - VISUAL HALLUCINATIONS (4) Sinusitis Assessment/Plan: chronic on ct scan Code(s): J32.9 - CHRONIC SINUSITIS, UNSPECIFIED Qualifiers: Sinusitis location: maxillary Chronicity: chronic Qualified Code(s) : J32.0 - Chronic maxillary sinusitis (5) Acute renal insufficiency Assessment/Plan: improving renal eval noted Code(s): N28.9 - DISORDER OF KIDNEY AND URETER, UNSPECIFIED Assessment/Plan remove estefanía vest if calm and stable the dc to SNF
[2016-08-12] MEDS ORDERED: PT OWN MED DRAWER 7, Y5N ONE (09:53)
[2016-08-12] MEDS: ATENOLOL 50 MG TABLET (FP) PO SCH (09:57)
[2016-08-12] MEDS: HEPARIN NA (PORCINE) 5,000 UNITS/ML 1ML VIAL SQ SCH ×2 (09:58→21:38)
[2016-08-12] MEDS: ALLOPURINOL 300 MG TABLET (FP) PO SCH (09:58)
[2016-08-12] MEDS: ALPRAZolam 2 MG TABLET PO SCH ×2 (09:58→21:38)
[2016-08-12] MEDS: ASPIRIN 81 MG CHEWABLE TABLETS PO SCH (09:58)
[2016-08-12] MEDS: PANTOPRAZOLE 40 MG TABLET (FP) PO SCH (09:58)
[2016-08-12] MEDS: FLUoxetine HCL 20 MG CAPSULE (FP) PO SCH (09:58)
[2016-08-12] MEDS: HYDROXYUREA 500 MG CAPSULE PO SCH (09:58)
--- NOTE | 2016-08-12 09:58 | DS ---
Physical Examination Vital Signs: Vital Signs Temperature 97.8 F 08/12/16 02:00 Pulse Rate 64 08/12/16 02:00 Respiratory Rate 18 08/12/16 02:00 Blood Pressure 145/63 08/12/16 02:00 O2 Sat by Pulse Oximetry (%) 95 08/11/16 20:00 Constitutional: Yes: Calm Neck: Yes: Trachea Midline Cardiovascular: Yes: Regular Rate and Rhythm, S1, S2 Respiratory: Yes: CTA Bilaterally, Diminished (at bases) Gastrointestinal: Yes: Normal Bowel Sounds, Soft Edema: No Neurological: Yes: Alert, Oriented (to name and place) Labs: CBC, BMP 08/11/16 15:30 08/12/16 07:30 Discharge Summary Reason For Visit: AMS SINUSITIS Current Active Problems Altered mental status (Acute) Chronic kidney disease (CKD) (Acute) Hallucination, visual (Acute) Sinusitis (Acute) Hospital Course: PCP: Jose De Leon - Admission History of Present Illness: The patient is a 80 year old male, with a significant past medical history of CVA, HTN, hyperlipidemia, gout, anxiety/depression, TIA X2, ataxia, and GI bleed , who presents to the emergency department complaining of left knee pain for 1 day. As per , the patiently was recently treated for a CVA on 08/02/16 and discharged yesterday. Since the CVA, the patient has been unable to walk. She states the patient has been increasingly confused and increasingly aggressive with other correction residents since yesterday. The reports the patient has been experiencing a cough, residual of recent pneumonia. The patient denies any fever, chills, headache, dizziness, or SOB. The patient denies any nausea, vomiting, diarrhea, constipation, or changes in urination patterns. 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 Cardiovascular: Yes: HTN, Hyperlipdemia Pulmonary: Yes: Asthma Psych: Yes: Anxiety, Depression hospital course: change in mental status: brain MRI shows mulitple chronic infarcts seen by psych junga dose increased no more hallucinations stop seroquel stop abx culture negative no fever no wbc pleural effusion NTD seen by pulm mental status much improved no more estefanía vest needed CKD renal function is stable thrombocytosis: on hydroxyurea - Instructions Diet, Activity, Other Instructions: hydroxyurea on ,,and thursday 500mg po daily Referrals: Jose De Leon MD [Primary Care Provider] - Disposition: RETIREMENT FACILITY - Home Medications Comprehensive Discharge Medication List: Ambulatory Orders Allopurinol [Zyloprim -] 300 mg PO DAILY 09/24/14 Atorvastatin Ca [Lipitor] 20 mg PO HS 09/24/14 Pantoprazole Sodium [Protonix -] 40 mg PO DAILY #14 tablet.ec 07/22/16 Quetiapine Fumarate [Seroquel -] 25 mg PO HS #20 tablet 07/22/16 Aspirin [ASA -] 81 mg PO DAILY 08/02/16 Atenolol [Tenormin] 50 mg PO DAILY 08/02/16 Fluoxetine HCl Liquid [Prozac 20mg/5mL Oral Solution -] 60 mg PO DAILY 08/02/16 Hydroxyurea [Hydrea 500Mg Capsule -] 500 mg PO ASDIR 08/02/16 Alprazolam [Xanax] 1 mg PO BID tablet MDD 2 08/05/16 Olanzapine [Zyprexa -] 10 mg PO HS #30 tablet 08/05/16
--- NOTE | 2016-08-12 10:50 | PN ---
Progress Note (short form) - Note Progress Note: Mental status appears better today. No acute events overnight. Intake & Output 08/09/16 08/10/16 08/11/16 08/12/16 23:59 23:59 23:59 23:59 Intake Total 450 450 600 50 Output Total 0 Balance 450 450 600 50 Last Vital Signs Temp Pulse Resp BP Pulse Ox 97.8 F 64 18 145/63 95 08/12/16 02:00 08/12/16 02:00 08/12/16 02:00 08/12/16 02:00 08/11/16 20:00 Active Medications Acetaminophen (Tylenol -) 650 mg PO Q4H PRN PRN Reason: FEVER OR PAIN Last Admin: 08/11/16 21:31 Dose: 650 mg Albuterol Sulfate (Ventolin 0.083% Nebulizer Soln -) 1 amp NEB Q6H PRN PRN Reason: SHORT OF BREATH/WHEEZING Last Admin: 08/11/16 07:11 Dose: 1 amp Allopurinol (Zyloprim -) 300 mg PO DAILY [facility] Last Admin: 08/12/16 09:58 Dose: 300 mg Alprazolam (Xanax -) 1 mg PO BID [facility] Last Admin: 08/12/16 09:58 Dose: 1 mg Aspirin (Asa -) 81 mg PO DAILY [facility] Last Admin: 08/12/16 09:58 Dose: 81 mg Atenolol (Tenormin -) 50 mg PO DAILY [facility] Last Admin: 08/12/16 09:57 Dose: 50 mg Atorvastatin Calcium (Lipitor -) 20 mg PO HS [facility] Last Admin: 08/11/16 21:32 Dose: 20 mg Fluoxetine HCl (Prozac -) 60 mg PO DAILY [facility] Last Admin: 08/12/16 09:58 Dose: 60 mg Heparin Sodium (Porcine) (Heparin -) 5,000 unit SQ BID [facility] Last Admin: 08/12/16 09:58 Dose: 5,000 unit Hydroxyurea (Hydrea -) 500 mg PO TuThSa [facility] Last Admin: 08/12/16 09:58 Dose: 500 mg Olanzapine (Zyprexa -) 15 mg PO HS [facility] Last Admin: 08/11/16 21:32 Dose: 15 mg Pantoprazole Sodium (Protonix -) 40 mg PO DAILY [facility] Last Admin: 08/12/16 09:58 Dose: 40 mg Constitutional: Yes: NAD Neck: Yes: Trachea Midline Cardiovascular: Yes: Regular Rate and Rhythm, S1, S2 Respiratory: Yes: Clear, Diminished at bases Gastrointestinal: Yes: Normal Bowel Sounds, Soft Edema: No Neurological: Yes: Alert, Oriented (to name and place) Labs: Laboratory Results - last 24 hr 08/11/16 08/12/16 15:30 07:30 WBC 7.7 RBC 3.93 L Hgb 12.5 Hct 37.5 MCV 95.5 MCHC 33.2 RDW 16.9 H Plt Count 276 MPV 8.5 Neutrophils % 45.8 Lymphocytes % 25.2 Monocytes % 14.2 H Eosinophils % 13.4 H Basophils % 1.4 Sodium 144 Potassium 4.0 Chloride 105 Carbon Dioxide 33 H Anion Gap 6 L BUN 24 H Creatinine 1.7 H Creat Clearance w eGFR 39.18 Random Glucose 90 D Calcium 8.8 Total Bilirubin 0.8 AST 35 D ALT 27 Alkaline Phosphatase 64 Total Protein 6.8 Albumin 3.0 L Problem List - Problems (1) Altered mental status Assessment/Plan: Code(s): R41.82 - ALTERED MENTAL STATUS, UNSPECIFIED Qualifiers: Altered mental status type: disorientation Qualified Code(s): R41.0 - Disorientation, unspecified (2) Abnormal chest x-ray Assessment/Plan: Code(s): R93.8 - ABNORMAL FINDINGS ON DIAGNOSTIC IMAGING OF BODY STRUCTURES (3) Hallucination, visual Assessment/Plan: Code(s): R44.1 - VISUAL HALLUCINATIONS (4) Sinusitis Assessment/Plan: Code(s): J32.9 - CHRONIC SINUSITIS, UNSPECIFIED Qualifiers: Sinusitis location: maxillary Chronicity: chronic Qualified Code(s) : J32.0 - Chronic maxillary sinusitis (5) Acute renal insufficiency Assessment/Plan: Code(s): N28.9 - DISORDER OF KIDNEY AND URETER, UNSPECIFIED Assessment/Plan Can repeat CXR as outpatient if there are any respiratory clinical symptoms Fall precautions No Pulmonary contraindication for D/C Dr Brooks Problem List - Problems (1) Altered mental status Code(s): R41.82 - ALTERED MENTAL STATUS, UNSPECIFIED Qualifiers: Altered mental status type: disorientation Qualified Code(s): R41.0 - Disorientation, unspecified (2) Chronic kidney disease (CKD) Code(s): N18.9 - CHRONIC KIDNEY DISEASE, UNSPECIFIED (3) Hallucination, visual Code(s): R44.1 - VISUAL HALLUCINATIONS (4) Sinusitis Code(s): J32.9 - CHRONIC SINUSITIS, UNSPECIFIED Qualifiers: Sinusitis location: maxillary Chronicity: chronic Qualified Code(s) : J32.0 - Chronic maxillary sinusitis (5) Abnormal chest x-ray Code(s): R93.8 - ABNORMAL FINDINGS ON DIAGNOSTIC IMAGING OF BODY STRUCTURES (6) Acute renal insufficiency Code(s): N28.9 - DISORDER OF KIDNEY AND URETER, UNSPECIFIED (7) Anxiety and depression Code(s): F41.9 - ANXIETY DISORDER, UNSPECIFIED F32.9 - MAJOR DEPRESSIVE DISORDER, SINGLE EPISODE, UNSPECIFIED (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 Code(s): I69.320 - APHASIA FOLLOWING CEREBRAL INFARCTION (9) CVA (cerebral vascular accident) Code(s): I63.9 - CEREBRAL INFARCTION, UNSPECIFIED Qualifiers: CVA mechanism: unspecified Qualified Code(s): I63.9 - Cerebral infarction, unspecified (10) Confusion state Code(s): F44.89 - OTHER DISSOCIATIVE AND CONVERSION DISORDERS (11) Dementia Code(s): F03.90 - UNSPECIFIED DEMENTIA WITHOUT BEHAVIORAL DISTURBANCE (12) Frequent falls Code(s): R29.6 - REPEATED FALLS (13) GERD (gastroesophageal reflux disease) Code(s): K21.9 - GASTRO-ESOPHAGEAL REFLUX DISEASE WITHOUT ESOPHAGITIS (14) Knee pain Code(s): M25.569 - PAIN IN UNSPECIFIED KNEE (15) Multiple lacunar infarcts Code(s): I63.9 - CEREBRAL INFARCTION, UNSPECIFIED
--- NOTE | 2016-08-12 11:25 | PN ---
Progress Note (short form) - Note Progress Note: Renal Follow up for ANSELMO/CKD Pt seen and examined at the bedside no acute complaints denies any sob, chest pain, Abd pain, N/V good urine output Vital Signs Temperature 97.8 F 08/12/16 02:00 Pulse Rate 64 08/12/16 02:00 Respiratory Rate 18 08/12/16 02:00 Blood Pressure 145/63 08/12/16 02:00 O2 Sat by Pulse Oximetry (%) 95 08/11/16 20:00 Intake & Output 08/09/16 08/10/16 08/11/16 08/12/16 23:59 23:59 23:59 23:59 Intake Total 450 450 600 50 Output Total 0 Balance 450 450 600 50 Gen: NAD CVS: RRR, No M/R Lungs: CTA, dec BS lung bases Abd: soft NT/ND Ext: No edema, clubbing or cyanosis : No bladder distension CBC, BMP 08/11/16 15:30 08/12/16 07:30 Current Medications Acetaminophen (Tylenol -) 650 mg PO Q4H PRN PRN Reason: FEVER OR PAIN Last Admin: 08/11/16 21:31 Dose: 650 mg Albuterol Sulfate (Ventolin 0.083% Nebulizer Soln -) 1 amp NEB Q6H PRN PRN Reason: SHORT OF BREATH/WHEEZING Last Admin: 08/11/16 07:11 Dose: 1 amp Allopurinol (Zyloprim -) 300 mg PO DAILY [facility] Last Admin: 08/12/16 09:58 Dose: 300 mg Alprazolam (Xanax -) 1 mg PO BID [facility] Last Admin: 08/12/16 09:58 Dose: 1 mg Aspirin (Asa -) 81 mg PO DAILY [facility] Last Admin: 08/12/16 09:58 Dose: 81 mg Atenolol (Tenormin -) 50 mg PO DAILY [facility] Last Admin: 08/12/16 09:57 Dose: 50 mg Atorvastatin Calcium (Lipitor -) 20 mg PO HS [facility] Last Admin: 08/11/16 21:32 Dose: 20 mg Fluoxetine HCl (Prozac -) 60 mg PO DAILY [facility] Last Admin: 08/12/16 09:58 Dose: 60 mg Heparin Sodium (Porcine) (Heparin -) 5,000 unit SQ BID [facility] Last Admin: 08/12/16 09:58 Dose: 5,000 unit Hydroxyurea (Hydrea -) 500 mg PO TuThSa [facility] Last Admin: 08/12/16 09:58 Dose: 500 mg Olanzapine (Zyprexa -) 15 mg PO HS [facility] Last Admin: 08/11/16 21:32 Dose: 15 mg Pantoprazole Sodium (Protonix -) 40 mg PO DAILY [facility] Last Admin: 08/12/16 09:58 Dose: 40 mg A/P 80 year old Gentleman with PMhx of CVA/TIA, CKD (baseline Cr 1.6), Hypertension presented with AMS/Fall s/p revent CVA. #ANSELMO/CKD Renal function essentially stable this admission Urine studies are still pending - pt did not supply sample Renal US pending, can d/c bladder Us because pt is incontinent If pt to be discharged can continue work up as outpatient Thank you Lee Ramirez DO
--- NOTE | 2016-08-12 12:00 | PN ---
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 Nursing reports pt self feeding nectar thick liquids with cough repsone. Last mbs with aspiration on nectar thick when impulsive with spillage over BOT into the airway. For u/s Selected Entries 08/11/16 08/11/16 08/11/16 12:10 15:40 20:56 Breakfast 75% Lunch 25% Supper 25% Temperature 08/12/16 02:00 Breakfast Lunch Supper Temperature 97.8 F Laboratory Tests 08/11/16 15:30 WBC 7.7 Pt on pureed diet and nectar thick liquid. Asking for thomason and sausage. REC: No self feeding. MBS to r/o aspiration and determine more liberal diet that pt can tolerate.
--- NOTE | 2016-08-12 16:31 | PN ---
Progress Note (short form) - Note Progress Note: staff and rep[orts increased agitation and hallucinations and delusions. Unable to do any testys at this time. patient had been on Xanax 1mg pom qid.
[2016-08-12] MEDS ORDERED: HALOPERIDOL 5 MG TABLET (FP) PO PRN (16:32)
[2016-08-12] MEDS ORDERED: HALOPERIDOL LACTATE 5 MG/ML IM STA (17:37)
[2016-08-12] MEDS: ATORVASTATIN CA 20 MG TABLET (FP) PO SCH (21:38)
--- NOTE | 2016-08-13 09:25 | DS ---
Physical Examination Vital Signs: Vital Signs Temperature 98.6 F 08/13/16 06:00 Pulse Rate 74 08/13/16 06:00 Respiratory Rate 18 08/13/16 06:00 Blood Pressure 160/84 08/13/16 06:00 O2 Sat by Pulse Oximetry (%) 95 08/12/16 21:00 Findings/Remarks: in bed having breakfast calm Cardiovascular: Yes: Regular Rate and Rhythm Respiratory: Yes: Regular, CTA Bilaterally Gastrointestinal: Yes: Normal Bowel Sounds, Soft Labs: CBC, BMP 08/11/16 15:30 08/12/16 07:30 Discharge Summary Reason For Visit: AMS SINUSITIS Current Active Problems Altered mental status (Acute) Chronic kidney disease (CKD) (Acute) Hallucination, visual (Acute) Sinusitis (Acute) Hospital Course: The patient is a 80 year old male, with a significant past medical history of CVA, HTN, hyperlipidemia, gout, anxiety/depression, TIA X2, ataxia, and GI bleed , who presents to the emergency department complaining of left knee pain for 1 day. As per , the patiently was recently treated for a CVA on 08/02/16 and discharged yesterday. Since the CVA, the patient has been unable to walk. She states the patient has been increasingly confused and increasingly aggressive with other halfway residents since yesterday. The reports the patient has been experiencing a cough, residual of recent pneumonia. The patient denies any fever, chills, headache, dizziness, or SOB. The patient denies any nausea, vomiting, diarrhea, constipation, or changes in urination patterns. 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 Cardiovascular: Yes: HTN, Hyperlipdemia Pulmonary: Yes: Asthma Psych: Yes: Anxiety, Depression hospital course: change in mental status: brain MRI shows mulitple chronic infarcts seen by psych zyrexa dose increased no more hallucinations stop seroquel stop abx culture negative no fever no wbc pleural effusion NTD seen by pulm mental status much improved no more estefanía vest needed CKD renal function is stable thrombocytosis: on hydroxyurea - Problems (1) Altered mental status Assessment/Plan: much better today MRI shows no acute changes 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 stop abx estefanía vest Code(s): R41.82 - ALTERED MENTAL STATUS, UNSPECIFIED Qualifiers: Altered mental status type: disorientation Qualified Code(s): R41.0 - Disorientation, unspecified (2) Abnormal chest x-ray Assessment/Plan: pulm eval noted Code(s): R93.8 - ABNORMAL FINDINGS ON DIAGNOSTIC IMAGING OF BODY STRUCTURES (3) Hallucination, visual Assessment/Plan: psych eval noted zyprexa imcreasd no more halicnations Code(s): R44.1 - VISUAL HALLUCINATIONS (4) Sinusitis Assessment/Plan: chronic on ct scan Code(s): J32.9 - CHRONIC SINUSITIS, UNSPECIFIED Qualifiers: Sinusitis location: maxillary Chronicity: chronic Qualified Code(s) : J32.0 - Chronic maxillary sinusitis (5) Acute renal insufficiency Assessment/Plan: improving renal eval noted Code(s): N28.9 - DISORDER OF KIDNEY AND URETER, UNSPECIFIED Condition: Stable - Instructions Diet, Activity, Other Instructions: hydroxyurea on ,,and thursday 500mg po daily Referrals: Jose De Leon MD [Primary Care Provider] - Disposition: [facility] - Home Medications Comprehensive Discharge Medication List: Ambulatory Orders Allopurinol [Zyloprim -] 300 mg PO DAILY 09/24/14 Atorvastatin Ca [Lipitor] 20 mg PO HS 09/24/14 Pantoprazole Sodium [Protonix -] 40 mg PO DAILY #14 tablet.ec 07/22/16 Aspirin [ASA -] 81 mg PO DAILY 08/02/16 Atenolol [Tenormin] 50 mg PO DAILY 08/02/16 Fluoxetine HCl Liquid [Prozac 20mg/5mL Oral Solution -] 60 mg PO DAILY 08/02/16 Alprazolam [Xanax] 1 mg PO BID tablet MDD 2 08/05/16 Hydroxyurea [Hydrea 500Mg Capsule -] 500 mg PO TuThSa capsule 08/12/16 Olanzapine [Zyprexa -] 15 mg PO HS #30 tablet 08/12/16
[2016-08-13] MEDS ORDERED: PT OWN MED DRAWER 7, Y5N ONE (09:38)
[2016-08-13] MEDS: HEPARIN NA (PORCINE) 5,000 UNITS/ML 1ML VIAL SQ SCH ×2 (09:39→22:43)
[2016-08-13] MEDS: ASPIRIN 81 MG CHEWABLE TABLETS PO SCH (09:39)
[2016-08-13] MEDS: ATENOLOL 50 MG TABLET (FP) PO SCH (09:39)
[2016-08-13] MEDS: ALPRAZolam 2 MG TABLET PO SCH ×2 (09:40→22:43)
[2016-08-13] MEDS: ALLOPURINOL 300 MG TABLET (FP) PO SCH (09:40)
[2016-08-13] MEDS: PANTOPRAZOLE 40 MG TABLET (FP) PO SCH (09:40)
[2016-08-13] MEDS: FLUoxetine HCL 20 MG CAPSULE (FP) PO SCH (09:40)
--- NOTE | 2016-08-13 11:23 | PN ---
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 Reaching in the air for his phone. Confused.
--- NOTE | 2016-08-13 11:33 | PN ---
Progress Note (short form) - Note Progress Note: Renal Follow up for ANSELMO/CKD Pt seen and examined at the bedside confused this am denies any sob or chest pain reports pain in b/l shoulders no N/V/D Vital Signs Temperature 99.1 F 08/13/16 09:33 Pulse Rate 74 08/13/16 09:33 Respiratory Rate 20 08/13/16 09:33 Blood Pressure 152/83 08/13/16 09:33 O2 Sat by Pulse Oximetry (%) 95 08/12/16 21:00 Intake & Output 08/10/16 08/11/16 08/12/16 08/13/16 23:59 23:59 23:59 23:59 Intake Total 450 600 650 450 Output Total 0 Balance 450 600 650 450 Gen: NAD CVS: RRR, No M/R Lungs: CTA, dec BS lung bases Abd: soft NT/ND Ext: No edema, clubbing or cyanosis : No bladder distension CBC, BMP 08/11/16 15:30 08/12/16 07:30 Current Medications Acetaminophen (Tylenol -) 650 mg PO Q4H PRN PRN Reason: FEVER OR PAIN Last Admin: 08/11/16 21:31 Dose: 650 mg Albuterol Sulfate (Ventolin 0.083% Nebulizer Soln -) 1 amp NEB Q6H PRN PRN Reason: SHORT OF BREATH/WHEEZING Last Admin: 08/11/16 07:11 Dose: 1 amp Allopurinol (Zyloprim -) 300 mg PO DAILY [facility] Last Admin: 08/13/16 09:40 Dose: 300 mg Alprazolam (Xanax -) 1 mg PO BID [facility] Last Admin: 08/13/16 09:40 Dose: 1 mg Aspirin (Asa -) 81 mg PO DAILY [facility] Last Admin: 08/13/16 09:39 Dose: 81 mg Atenolol (Tenormin -) 50 mg PO DAILY [facility] Last Admin: 08/13/16 09:39 Dose: 50 mg Atorvastatin Calcium (Lipitor -) 20 mg PO HS [facility] Last Admin: 08/12/16 21:38 Dose: 20 mg Fluoxetine HCl (Prozac -) 60 mg PO DAILY [facility] Last Admin: 08/13/16 09:40 Dose: 60 mg Haloperidol (Haldol -) 5 mg PO BID PRN PRN Reason: AGITATION Last Admin: 08/12/16 17:44 Dose: 5 mg Heparin Sodium (Porcine) (Heparin -) 5,000 unit SQ BID [facility] Last Admin: 08/13/16 09:39 Dose: 5,000 unit Hydroxyurea (Hydrea -) 500 mg PO TuThSa [facility] Last Admin: 08/12/16 09:58 Dose: 500 mg Pantoprazole Sodium (Protonix -) 40 mg PO DAILY [facility] Last Admin: 08/13/16 09:40 Dose: 40 mg A/P 80 year old Gentleman with PMhx of CVA/TIA, CKD (baseline Cr 1.6), Hypertension presented with AMS/Fall s/p revent CVA. #ANSELMO/CKD Renal function stable Renal Us showed normal size kidneys w/o evidence of obstruction or stones Urine studies are still pending (pt not cooperative) continue current management does not need IVF at this time Can continue to monitor as outpatient #Recent CVA/Agitation MRI w/o any new acute infarcts Neurology and Psych following Thank you Lee Ramirez DO
[2016-08-13] MEDS: ACETAMINOPHEN 325 MG TABLET (FP) PO PRN (18:54)
[2016-08-13] MEDS: ATORVASTATIN CA 20 MG TABLET (FP) PO SCH (22:43)
[2016-08-14] MEDS: ALBUTEROL SO4 0.083% IH SOL 2.5 MG/3 ML VIAL.NEB. NEB PRN ×3 (03:20→19:04)
--- NOTE | 2016-08-14 10:54 | PN ---
Progress Note (short form) - Note Progress Note: o acute events overnight. NAD. Confusion. Intake & Output 08/11/16 08/12/16 08/13/16 08/14/16 23:59 23:59 23:59 23:59 Intake Total 584 911 6520 Output Total 0 Balance 235 318 9115 Last Vital Signs Temp Pulse Resp BP Pulse Ox 98.4 F 62 24 125/58 96 08/14/16 05:30 08/14/16 05:30 08/14/16 05:30 08/14/16 05:30 08/13/16 21:00 Active Medications Acetaminophen (Tylenol -) 650 mg PO Q4H PRN PRN Reason: FEVER OR PAIN Last Admin: 08/13/16 18:54 Dose: 650 mg Albuterol Sulfate (Ventolin 0.083% Nebulizer Soln -) 1 amp NEB Q6H PRN PRN Reason: SHORT OF BREATH/WHEEZING Last Admin: 08/14/16 03:20 Dose: 1 amp Allopurinol (Zyloprim -) 300 mg PO DAILY [facility] Last Admin: 08/13/16 09:40 Dose: 300 mg Alprazolam (Xanax -) 1 mg PO BID [facility] Last Admin: 08/13/16 22:43 Dose: 1 mg Aspirin (Asa -) 81 mg PO DAILY [facility] Last Admin: 08/13/16 09:39 Dose: 81 mg Atenolol (Tenormin -) 50 mg PO DAILY [facility] Last Admin: 08/13/16 09:39 Dose: 50 mg Atorvastatin Calcium (Lipitor -) 20 mg PO HS [facility] Last Admin: 08/13/16 22:43 Dose: 20 mg Fluoxetine HCl (Prozac -) 60 mg PO DAILY [facility] Last Admin: 08/13/16 09:40 Dose: 60 mg Haloperidol (Haldol -) 5 mg PO BID PRN PRN Reason: AGITATION Last Admin: 08/12/16 17:44 Dose: 5 mg Heparin Sodium (Porcine) (Heparin -) 5,000 unit SQ BID [facility] Last Admin: 08/13/16 22:43 Dose: 5,000 unit Hydroxyurea (Hydrea -) 500 mg PO TuThSa [facility] Last Admin: 08/12/16 09:58 Dose: 500 mg Pantoprazole Sodium (Protonix -) 40 mg PO DAILY [facility] Last Admin: 08/13/16 09:40 Dose: 40 mg Constitutional: Yes: NAD Neck: Yes: Trachea Midline Cardiovascular: Yes: Regular Rate and Rhythm, S1, S2 Respiratory: Yes: Clear, Diminished at bases Gastrointestinal: Yes: Normal Bowel Sounds, Soft Edema: No Neurological: Yes: Alert, Oriented (to name and place) Labs: Problem List - Problems (1) Altered mental status Assessment/Plan: Code(s): R41.82 - ALTERED MENTAL STATUS, UNSPECIFIED Qualifiers: Altered mental status type: disorientation Qualified Code(s): R41.0 - Disorientation, unspecified (2) Abnormal chest x-ray Assessment/Plan: Code(s): R93.8 - ABNORMAL FINDINGS ON DIAGNOSTIC IMAGING OF BODY STRUCTURES (3) Hallucination, visual Assessment/Plan: Code(s): R44.1 - VISUAL HALLUCINATIONS (4) Sinusitis Assessment/Plan: Code(s): J32.9 - CHRONIC SINUSITIS, UNSPECIFIED Qualifiers: Sinusitis location: maxillary Chronicity: chronic Qualified Code(s) : J32.0 - Chronic maxillary sinusitis (5) Acute renal insufficiency Assessment/Plan: Code(s): N28.9 - DISORDER OF KIDNEY AND URETER, UNSPECIFIED Assessment/Plan Can repeat CXR as outpatient if there are any respiratory clinical symptoms Fall precautions No Pulmonary contraindication for D/C Dr Brooks Problem List - Problems (1) Altered mental status Code(s): R41.82 - ALTERED MENTAL STATUS, UNSPECIFIED Qualifiers: Altered mental status type: disorientation Qualified Code(s): R41.0 - Disorientation, unspecified (2) Chronic kidney disease (CKD) Code(s): N18.9 - CHRONIC KIDNEY DISEASE, UNSPECIFIED (3) Hallucination, visual Code(s): R44.1 - VISUAL HALLUCINATIONS (4) Sinusitis Code(s): J32.9 - CHRONIC SINUSITIS, UNSPECIFIED Qualifiers: Sinusitis location: maxillary Chronicity: chronic Qualified Code(s) : J32.0 - Chronic maxillary sinusitis (5) Abnormal chest x-ray Code(s): R93.8 - ABNORMAL FINDINGS ON DIAGNOSTIC IMAGING OF BODY STRUCTURES (6) Acute renal insufficiency Code(s): N28.9 - DISORDER OF KIDNEY AND URETER, UNSPECIFIED (7) Anxiety and depression Code(s): F41.9 - ANXIETY DISORDER, UNSPECIFIED F32.9 - MAJOR DEPRESSIVE DISORDER, SINGLE EPISODE, UNSPECIFIED (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 Code(s): I69.320 - APHASIA FOLLOWING CEREBRAL INFARCTION (9) CVA (cerebral vascular accident) Code(s): I63.9 - CEREBRAL INFARCTION, UNSPECIFIED Qualifiers: CVA mechanism: unspecified Qualified Code(s): I63.9 - Cerebral infarction, unspecified (10) Confusion state Code(s): F44.89 - OTHER DISSOCIATIVE AND CONVERSION DISORDERS (11) Dementia Code(s): F03.90 - UNSPECIFIED DEMENTIA WITHOUT BEHAVIORAL DISTURBANCE (12) Frequent falls Code(s): R29.6 - REPEATED FALLS (13) GERD (gastroesophageal reflux disease) Code(s): K21.9 - GASTRO-ESOPHAGEAL REFLUX DISEASE WITHOUT ESOPHAGITIS (14) Knee pain Code(s): M25.569 - PAIN IN UNSPECIFIED KNEE (15) Multiple lacunar infarcts Code(s): I63.9 - CEREBRAL INFARCTION, UNSPECIFIED
[2016-08-14] MEDS ORDERED: PT OWN MED DRAWER 7, Y5N ONE ×3 (12:01→19:32)
[2016-08-14] MEDS: ATENOLOL 50 MG TABLET (FP) PO SCH (12:04)
[2016-08-14] MEDS: PANTOPRAZOLE 40 MG TABLET (FP) PO SCH (12:04)
[2016-08-14] MEDS: ASPIRIN 81 MG CHEWABLE TABLETS PO SCH (12:04)
[2016-08-14] MEDS: FLUoxetine HCL 20 MG CAPSULE (FP) PO SCH (12:04)
[2016-08-14] MEDS: HEPARIN NA (PORCINE) 5,000 UNITS/ML 1ML VIAL SQ SCH ×2 (12:04→21:03)
[2016-08-14] MEDS: ALLOPURINOL 300 MG TABLET (FP) PO SCH (12:04)
[2016-08-14] MEDS: ALPRAZolam 2 MG TABLET PO SCH ×2 (12:05→21:02)
[2016-08-14] MEDS: HYDROXYUREA 500 MG CAPSULE PO SCH (12:05)
--- NOTE | 2016-08-14 12:56 | PN ---
Progress Note, Physician Chief Complaint: spoke to family in detail regarding his conditon spoke to Dr momin as well - Current Medication List Current Medications: Active Medications Acetaminophen (Tylenol -) 650 mg PO Q4H PRN PRN Reason: FEVER OR PAIN Last Admin: 08/13/16 18:54 Dose: 650 mg Albuterol Sulfate (Ventolin 0.083% Nebulizer Soln -) 1 amp NEB Q6H PRN PRN Reason: SHORT OF BREATH/WHEEZING Last Admin: 08/14/16 12:27 Dose: 1 amp Allopurinol (Zyloprim -) 300 mg PO DAILY [facility] Last Admin: 08/14/16 12:04 Dose: 300 mg Alprazolam (Xanax -) 1 mg PO BID [facility] Last Admin: 08/14/16 12:05 Dose: 1 mg Aspirin (Asa -) 81 mg PO DAILY [facility] Last Admin: 08/14/16 12:04 Dose: 81 mg Atenolol (Tenormin -) 50 mg PO DAILY [facility] Last Admin: 08/14/16 12:04 Dose: 50 mg Atorvastatin Calcium (Lipitor -) 20 mg PO HS [facility] Last Admin: 08/13/16 22:43 Dose: 20 mg Fluoxetine HCl (Prozac -) 60 mg PO DAILY [facility] Last Admin: 08/14/16 12:04 Dose: 60 mg Haloperidol (Haldol -) 2.5 mg PO BID [facility] Heparin Sodium (Porcine) (Heparin -) 5,000 unit SQ BID [facility] Last Admin: 08/14/16 12:04 Dose: 5,000 unit Hydroxyurea (Hydrea -) 500 mg PO TuThSa [facility] Last Admin: 08/14/16 12:05 Dose: 500 mg Pantoprazole Sodium (Protonix -) 40 mg PO DAILY [facility] Last Admin: 08/14/16 12:04 Dose: 40 mg - Objective Vital Signs: Vital Signs Temperature 98.7 F 08/14/16 10:00 Pulse Rate 60 08/14/16 10:00 Respiratory Rate 20 08/14/16 10:00 Blood Pressure 129/60 08/14/16 10:00 O2 Sat by Pulse Oximetry (%) 95 08/14/16 09:00 Constitutional: Yes: Calm Neck: Yes: Trachea Midline Cardiovascular: Yes: Regular Rate and Rhythm, S1, S2 Respiratory: Yes: CTA Bilaterally Gastrointestinal: Yes: Normal Bowel Sounds, Soft Edema: No Neurological: Yes: Other (oriented to name and ) Labs: CBC, BMP 08/11/16 15:30 08/12/16 07:30 INR, PTT INR Cancelled 08/08/16 02:58 Problem List - Problems (1) Altered mental status Assessment/Plan: psych saw patient and stopped zyprexa as patient was still agitated on it and started haldol which was prn medication spoke to psych today he wants haldol to be standing bid dose 2.5mg po bid rather than 5mg po bid and monitor for any facial twitching or any drooling spoke to family will hold of discharge for today and monitor on standig dose of haldol and see how he does on this dose of 2.5mg po bid and if he gets agitated on this dose then will have to increase the dose to 5mg po bid family has filed an appeal for discharge,i have DC the discharge order for atleast 24 hrs to see how patient does on this Code(s): R41.82 - ALTERED MENTAL STATUS, UNSPECIFIED Qualifiers: Altered mental status type: disorientation Qualified Code(s): R41.0 - Disorientation, unspecified (2) Abnormal chest x-ray Assessment/Plan: pulm eval no contraindication for discharge can get outpatient cxr if he his respiratory status worsens Code(s): R93.8 - ABNORMAL FINDINGS ON DIAGNOSTIC IMAGING OF BODY STRUCTURES (3) Hallucination, visual Assessment/Plan: d/w dr momin haldol standing dose 2.5 mg po bid will monitor for agressive behavior MRI noted chronic infarcts noted no new acute pathology Code(s): R44.1 - VISUAL HALLUCINATIONS (4) Sinusitis Assessment/Plan: chronic on ct scan Code(s): J32.9 - CHRONIC SINUSITIS, UNSPECIFIED Qualifiers: Sinusitis location: maxillary Chronicity: chronic Qualified Code(s) : J32.0 - Chronic maxillary sinusitis (5) Acute renal insufficiency Assessment/Plan: improving renal eval noted has baseline cr 1.5-1.7 renal and bladder ultrasound noted no acute pathology, normal kindey and bladder Code(s): N28.9 - DISORDER OF KIDNEY AND URETER, UNSPECIFIED
--- NOTE | 2016-08-14 13:10 | PN ---
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 Pt quite lethargic today. Etiology? No PO intake provided by staff. Pt is on pureed diet and nectar thick liquid,assisted with PO intake. Pt should not be feeding himself, due to impulsivity and increased aspiration risk. Selected Entries 08/12/16 08/12/16 08/13/16 14:28 21:50 10:51 Breakfast 75% 75% Lunch Supper 25% 08/13/16 08/13/16 14:20 23:00 Breakfast Lunch 25% Supper 25% Laboratory Tests 08/11/16 15:30 WBC 7.7 Consider PEG insertion for times of lethargy, to provide consistent nutritional intake, hydration, medication as supplement to PO intake.
[2016-08-14] MEDS ORDERED: HALOPERIDOL 5 MG TABLET (FP) PO SCH (13:45)
--- NOTE | 2016-08-14 15:10 | PN ---
Progress Note (short form) - Note Progress Note: Renal Follow up for ANSELMO/CKD Pt seen and examined at the bedside more lethargic this am Vital Signs Temperature 98.1 F 08/14/16 14:49 Pulse Rate 61 08/14/16 14:49 Respiratory Rate 20 08/14/16 10:00 Blood Pressure 112/64 08/14/16 14:49 O2 Sat by Pulse Oximetry (%) 95 08/14/16 09:00 Intake & Output 08/11/16 08/12/16 08/13/16 08/14/16 23:59 23:59 23:59 23:59 Intake Total 401 428 8365 300 Output Total 0 Balance 308 895 4027 300 Gen: NAD CVS: RRR, No M/R Lungs: CTA, dec BS lung bases Abd: soft NT/ND Ext: No edema, clubbing or cyanosis : No bladder distension CBC, BMP 08/11/16 15:30 08/12/16 07:30 Current Medications Acetaminophen (Tylenol -) 650 mg PO Q4H PRN PRN Reason: FEVER OR PAIN Last Admin: 08/13/16 18:54 Dose: 650 mg Albuterol Sulfate (Ventolin 0.083% Nebulizer Soln -) 1 amp NEB Q6H PRN PRN Reason: SHORT OF BREATH/WHEEZING Last Admin: 08/14/16 12:27 Dose: 1 amp Allopurinol (Zyloprim -) 300 mg PO DAILY [facility] Last Admin: 08/14/16 12:04 Dose: 300 mg Alprazolam (Xanax -) 1 mg PO BID [facility] Last Admin: 08/14/16 12:05 Dose: 1 mg Aspirin (Asa -) 81 mg PO DAILY [facility] Last Admin: 08/14/16 12:04 Dose: 81 mg Atenolol (Tenormin -) 50 mg PO DAILY [facility] Last Admin: 08/14/16 12:04 Dose: 50 mg Atorvastatin Calcium (Lipitor -) 20 mg PO HS [facility] Last Admin: 08/13/16 22:43 Dose: 20 mg Fluoxetine HCl (Prozac -) 60 mg PO DAILY [facility] Last Admin: 08/14/16 12:04 Dose: 60 mg Haloperidol (Haldol -) 2.5 mg PO BID [facility] Last Admin: 08/14/16 14:04 Dose: 2.5 mg Heparin Sodium (Porcine) (Heparin -) 5,000 unit SQ BID [facility] Last Admin: 08/14/16 12:04 Dose: 5,000 unit Hydroxyurea (Hydrea -) 500 mg PO TuThSa [facility] Last Admin: 08/14/16 12:05 Dose: 500 mg Pantoprazole Sodium (Protonix -) 40 mg PO DAILY [facility] Last Admin: 08/14/16 12:04 Dose: 40 mg A/P 80 year old Gentleman with PMhx of CVA/TIA, CKD (baseline Cr 1.6), Hypertension presented with AMS/Fall s/p revent CVA. #ANSELMO/CKD Renal function stable Renal Us showed normal size kidneys w/o evidence of obstruction or stones at baseline Cr as per Dr. Treadwell notes Urine studies not collected ok for discharge from renal perspective -> need work up as outpatient #Recent CVA/Agitation MRI w/o any new acute infarcts Neurology and Psych following Started On standing haldol as per Psych Thank you Lee Ramirez DO
[2016-08-14 16:50] LABS: EOSINOPHIL 4.7 % (0-4.5); MCHC 33.2 g/dl (32.0-35.9); MEAN CELL VOLUME 96.3 fl (80-96); MEAN PLT VOLUME 8.3 fl (7.5-11.1); PLATELET COUNT 297 K/MM3 (134-434); RDW 17.3 % (11.9-15.9); WHITE BLOOD COUNT 9.8 K/mm3 (4.0-10.0)
[2016-08-14 17:22] LABS: ALBUMIN 2.9 g/dl (3.4-5.0); CALCIUM 8.9 mg/dL (8.5-10.1)
[2016-08-14 17:24] LABS: BILIRUBIN,TOTAL 0.7 mg/dL (0.2-1.0); TOT PROT 6.6 g/dl (6.4-8.2)
[2016-08-14] MEDS: ATORVASTATIN CA 20 MG TABLET (FP) PO SCH (21:02)
[2016-08-14] MEDS: HALOPERIDOL 1 MG TABLET (FP) PO SCH (21:03)
[2016-08-15] MEDS: ALBUTEROL SO4 0.083% IH SOL 2.5 MG/3 ML VIAL.NEB. NEB PRN
[2016-08-15] MEDS: ACETAMINOPHEN 325 MG TABLET (FP) PO PRN ×2 (02:49→18:11)
[2016-08-15 07:38] LABS: BASOPHIL 0.9 % (0-2.0); EOSINOPHIL 1.1 % (0-4.5); MCHC 33.1 g/dl (32.0-35.9); MEAN CELL VOLUME 96.6 fl (80-96); MEAN PLT VOLUME 8.2 fl (7.5-11.1); NEUTROPHILS 64.9 % (42.8-82.8); PLATELET COUNT 263 K/MM3 (134-434); RDW 16.9 % (11.9-15.9); WHITE BLOOD COUNT 14.3 K/mm3 (4.0-10.0)
--- NOTE | 2016-08-15 07:46 | PN ---
Progress Note, Physician Chief Complaint: CALM - Current Medication List Current Medications: Active Medications Acetaminophen (Tylenol -) 650 mg PO Q4H PRN PRN Reason: FEVER OR PAIN Last Admin: 08/15/16 02:49 Dose: 650 mg Albuterol Sulfate (Ventolin 0.083% Nebulizer Soln -) 1 amp NEB Q6H PRN PRN Reason: SHORT OF BREATH/WHEEZING Last Admin: 08/15/16 00:00 Dose: 1 amp Allopurinol (Zyloprim -) 300 mg PO DAILY [facility] Last Admin: 08/14/16 12:04 Dose: 300 mg Alprazolam (Xanax -) 1 mg PO BID [facility] Last Admin: 08/14/16 21:02 Dose: 1 mg Aspirin (Asa -) 81 mg PO DAILY [facility] Last Admin: 08/14/16 12:04 Dose: 81 mg Atenolol (Tenormin -) 50 mg PO DAILY [facility] Last Admin: 08/14/16 12:04 Dose: 50 mg Atorvastatin Calcium (Lipitor -) 20 mg PO HS [facility] Last Admin: 08/14/16 21:02 Dose: 20 mg Fluoxetine HCl (Prozac -) 60 mg PO DAILY [facility] Last Admin: 08/14/16 12:04 Dose: 60 mg Haloperidol (Haldol -) 1 mg PO BID [facility] Last Admin: 08/14/16 21:03 Dose: 1 mg Heparin Sodium (Porcine) (Heparin -) 5,000 unit SQ BID [facility] Last Admin: 08/14/16 21:03 Dose: 5,000 unit Hydroxyurea (Hydrea -) 500 mg PO TuThSa [facility] Last Admin: 08/14/16 12:05 Dose: 500 mg Pantoprazole Sodium (Protonix -) 40 mg PO DAILY [facility] Last Admin: 08/14/16 12:04 Dose: 40 mg - Objective Vital Signs: Vital Signs Temperature 97.9 F 08/15/16 05:30 Pulse Rate 87 08/15/16 05:30 Respiratory Rate 24 08/15/16 05:30 Blood Pressure 139/88 08/15/16 05:30 O2 Sat by Pulse Oximetry (%) 95 08/14/16 21:00 Cardiovascular: Yes: WNL Respiratory: Yes: WNL Gastrointestinal: Yes: WNL Labs: INR, PTT INR Cancelled 08/08/16 02:58 Problem List - Problems (1) Altered mental status Code(s): R41.82 - ALTERED MENTAL STATUS, UNSPECIFIED Qualifiers: Altered mental status type: disorientation Qualified Code(s): R41.0 - Disorientation, unspecified (2) Hallucination, visual Code(s): R44.1 - VISUAL HALLUCINATIONS (3) Sinusitis Code(s): J32.9 - CHRONIC SINUSITIS, UNSPECIFIED Qualifiers: Sinusitis location: maxillary Chronicity: chronic Qualified Code(s) : J32.0 - Chronic maxillary sinusitis (4) Abnormal chest x-ray Code(s): R93.8 - ABNORMAL FINDINGS ON DIAGNOSTIC IMAGING OF BODY STRUCTURES (5) Acute renal insufficiency Code(s): N28.9 - DISORDER OF KIDNEY AND URETER, UNSPECIFIED Assessment/Plan (1) Altered mental status Assessment/Plan: psych saw patient and stopped zyprexa as patient was still agitated on it and started haldol which was prn medication psych wants haldol to be standing bid dose 2.5mg po bid rather than 5mg po bid and monitor for any facial twitching or any drooling spoke to family held discharge family has filed an appeal for discharge patient sedated throughout day -> haldol decreased to 1bid Code(s): R41.82 - ALTERED MENTAL STATUS, UNSPECIFIED Qualifiers: Altered mental status type: disorientation Qualified Code(s): R41.0 - Disorientation, unspecified (2) Abnormal chest x-ray Assessment/Plan: pulm eval no contraindication for discharge can get outpatient cxr if he his respiratory status worsens Code(s): R93.8 - ABNORMAL FINDINGS ON DIAGNOSTIC IMAGING OF BODY STRUCTURES (3) Hallucination, visual Assessment/Plan: d/w dr momin will monitor for agressive behavior MRI noted chronic infarcts noted no new acute pathology Code(s): R44.1 - VISUAL HALLUCINATIONS (4) Sinusitis Assessment/Plan: chronic on ct scan Code(s): J32.9 - CHRONIC SINUSITIS, UNSPECIFIED Qualifiers: Sinusitis location: maxillary Chronicity: chronic Qualified Code(s) : J32.0 - Chronic maxillary sinusitis (5) Acute renal insufficiency Assessment/Plan: improving renal eval noted has baseline cr 1.5-1.7 renal and bladder ultrasound noted no acute pathology, normal kindey and bladder Code(s): N28.9 - DISORDER OF KIDNEY AND URETER, UNSPECIFIED 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
[2016-08-15 08:18] LABS: ALBUMIN 2.9 g/dl (3.4-5.0); CALCIUM 8.8 mg/dL (8.5-10.1)
[2016-08-15 08:20] LABS: BILIRUBIN,TOTAL 0.7 mg/dL (0.2-1.0); TOT PROT 6.7 g/dl (6.4-8.2)
[2016-08-15] MEDS ORDERED: PT OWN MED DRAWER 7, Y5N ONE ×3 (09:18→22:24)
[2016-08-15] MEDS: ATENOLOL 50 MG TABLET (FP) PO SCH (09:21)
[2016-08-15] MEDS: FLUoxetine HCL 20 MG CAPSULE (FP) PO SCH (09:21)
[2016-08-15] MEDS: PANTOPRAZOLE 40 MG TABLET (FP) PO SCH (09:21)
[2016-08-15] MEDS: HALOPERIDOL 1 MG TABLET (FP) PO SCH ×2 (09:21→22:26)
[2016-08-15] MEDS: ASPIRIN 81 MG CHEWABLE TABLETS PO SCH (09:21)
[2016-08-15] MEDS: ALLOPURINOL 300 MG TABLET (FP) PO SCH (09:21)
[2016-08-15] MEDS: HEPARIN NA (PORCINE) 5,000 UNITS/ML 1ML VIAL SQ SCH ×2 (09:22→22:26)
[2016-08-15] MEDS: ALPRAZolam 2 MG TABLET PO SCH (09:22)
--- NOTE | 2016-08-15 10:05 | PN ---
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 Had breakfast. Fed using swallowing compensatory strategies by ER TECH. Pt with responsive cough on nectar thick liquid on a tsp. Last CXR 08/11. Pt was not cooperative for last MBS, and it was not done. Pt just given Haldol. Verbal. Confused. REC: Honey thick liquid on a tsp Consider repeat CXR. r/o aspiration MBS Thursday, if dysphagia persists.
--- NOTE | 2016-08-15 15:41 | PN ---
Progress Note (short form) - Note Progress Note: Renal Follow up for ANSELMO/CKD Pt seen and examined at the bedside more lethargic s/p haldol this am is arouseable however denies any sob, chest pain Vital Signs Temperature 98.4 F 08/15/16 14:32 Pulse Rate 68 08/15/16 14:32 Respiratory Rate 18 08/15/16 07:57 Blood Pressure 132/65 08/15/16 14:32 O2 Sat by Pulse Oximetry (%) 95 08/15/16 09:00 Intake & Output 08/12/16 08/13/16 08/14/16 08/15/16 23:59 23:59 23:59 23:59 Intake Total 650 1050 1050 500 Balance 650 1050 1050 500 Gen: NAD CVS: RRR, No M/R Lungs: CTA, dec BS lung bases Abd: soft NT/ND Ext: No edema, clubbing or cyanosis : No bladder distension CBC, BMP 08/15/16 06:00 08/15/16 06:00 Current Medications Acetaminophen (Tylenol -) 650 mg PO Q4H PRN PRN Reason: FEVER OR PAIN Last Admin: 08/15/16 02:49 Dose: 650 mg Albuterol Sulfate (Ventolin 0.083% Nebulizer Soln -) 1 amp NEB Q6H PRN PRN Reason: SHORT OF BREATH/WHEEZING Last Admin: 08/15/16 00:00 Dose: 1 amp Allopurinol (Zyloprim -) 300 mg PO DAILY [facility] Last Admin: 08/15/16 09:21 Dose: 300 mg Aspirin (Asa -) 81 mg PO DAILY [facility] Last Admin: 08/15/16 09:21 Dose: 81 mg Atenolol (Tenormin -) 50 mg PO DAILY [facility] Last Admin: 08/15/16 09:21 Dose: 50 mg Atorvastatin Calcium (Lipitor -) 20 mg PO HS [facility] Last Admin: 08/14/16 21:02 Dose: 20 mg Fluoxetine HCl (Prozac -) 60 mg PO DAILY [facility] Last Admin: 08/15/16 09:21 Dose: 60 mg Haloperidol (Haldol -) 1 mg PO BID [facility] Last Admin: 08/15/16 09:21 Dose: 1 mg Heparin Sodium (Porcine) (Heparin -) 5,000 unit SQ BID [facility] Last Admin: 08/15/16 09:22 Dose: 5,000 unit Hydroxyurea (Hydrea -) 500 mg PO TuThSa [facility] Last Admin: 08/14/16 12:05 Dose: 500 mg Pantoprazole Sodium (Protonix -) 40 mg PO DAILY [facility] Last Admin: 08/15/16 09:21 Dose: 40 mg Polyethylene Glycol (Miralax (For Daily Use) -) 17 gm PO DAILY [facility] A/P 80 year old Gentleman with PMhx of CVA/TIA, CKD (baseline Cr 1.6), Hypertension presented with AMS/Fall s/p revent CVA. #ANSELMO/CKD Renal function stable Renal Us showed normal size kidneys w/o evidence of obstruction or stones continue to trend renal function urine studies not collected full work up as outpatient #Recent CVA/Agitation MRI w/o any new acute infarcts Neurology and Psych following Started On standing haldol as per Psych Thank you Lee Ramirez DO
[2016-08-15] MEDS: ATORVASTATIN CA 20 MG TABLET (FP) PO SCH (22:26)
[2016-08-16 08:14] LABS: EOSINOPHIL 10.4 % (0-4.5); MCH 32.3 pg (25.7-33.7); MCHC 33.5 g/dl (32.0-35.9); MEAN CELL VOLUME 96.4 fl (80-96); MEAN PLT VOLUME 8.5 fl (7.5-11.1); NEUTROPHILS 50.8 % (42.8-82.8); PLATELET COUNT 316 K/MM3 (134-434); RDW 17.4 % (11.9-15.9)
[2016-08-16] MEDS: HYDROXYUREA 500 MG CAPSULE PO SCH (09:11)
[2016-08-16] MEDS: FLUoxetine HCL 20 MG CAPSULE (FP) PO SCH (09:11)
[2016-08-16] MEDS: PANTOPRAZOLE 40 MG TABLET (FP) PO SCH (09:11)
[2016-08-16] MEDS: HALOPERIDOL 1 MG TABLET (FP) PO SCH ×2 (09:11→22:00)
[2016-08-16] MEDS ORDERED: PT OWN MED DRAWER 7, Y5N ONE ×2 (09:11→20:53)
[2016-08-16] MEDS: ALLOPURINOL 300 MG TABLET (FP) PO SCH (09:11)
[2016-08-16] MEDS: ATENOLOL 50 MG TABLET (FP) PO SCH (09:11)
[2016-08-16] MEDS: ASPIRIN 81 MG CHEWABLE TABLETS PO SCH (09:11)
[2016-08-16] MEDS: HEPARIN NA (PORCINE) 5,000 UNITS/ML 1ML VIAL SQ SCH ×2 (09:12→22:00)
[2016-08-16] MEDS: POLYETHYLENE GLYCOL 3350 119 GM BTL PO SCH (09:12)
[2016-08-16 09:31] LABS: BILIRUBIN,TOTAL 0.9 mg/dL (0.2-1.0); TOT PROT 7.2 g/dl (6.4-8.2)
--- NOTE | 2016-08-16 11:07 | PN ---
Progress Note (short form) - Note Progress Note: No acute events overnight. Resting in NAD. No significant change from yesterday. Intake & Output 08/13/16 08/14/16 08/15/16 08/16/16 23:59 23:59 23:59 23:59 Intake Total 1050 1050 500 Balance 1050 1050 500 Last Vital Signs Temp Pulse Resp BP Pulse Ox 97.7 F 65 20 135/74 95 08/16/16 08:00 08/16/16 08:00 08/16/16 08:00 08/16/16 08:00 08/15/16 21:00 Active Medications Acetaminophen (Tylenol -) 650 mg PO Q4H PRN PRN Reason: FEVER OR PAIN Last Admin: 08/15/16 18:11 Dose: 650 mg Albuterol Sulfate (Ventolin 0.083% Nebulizer Soln -) 1 amp NEB Q6H PRN PRN Reason: SHORT OF BREATH/WHEEZING Last Admin: 08/15/16 00:00 Dose: 1 amp Allopurinol (Zyloprim -) 300 mg PO DAILY [facility] Last Admin: 08/16/16 09:11 Dose: 300 mg Aspirin (Asa -) 81 mg PO DAILY [facility] Last Admin: 08/16/16 09:11 Dose: 81 mg Atenolol (Tenormin -) 50 mg PO DAILY [facility] Last Admin: 08/16/16 09:11 Dose: 50 mg Atorvastatin Calcium (Lipitor -) 20 mg PO HS [facility] Last Admin: 08/15/16 22:26 Dose: 20 mg Fluoxetine HCl (Prozac -) 60 mg PO DAILY [facility] Last Admin: 08/16/16 09:11 Dose: 60 mg Haloperidol (Haldol -) 1 mg PO BID [facility] Last Admin: 08/16/16 09:11 Dose: 1 mg Heparin Sodium (Porcine) (Heparin -) 5,000 unit SQ BID [facility] Last Admin: 08/16/16 09:12 Dose: 5,000 unit Hydroxyurea (Hydrea -) 500 mg PO TuThSa [facility] Last Admin: 08/16/16 09:11 Dose: 500 mg Pantoprazole Sodium (Protonix -) 40 mg PO DAILY [facility] Last Admin: 08/16/16 09:11 Dose: 40 mg Polyethylene Glycol (Miralax (For Daily Use) -) 17 gm PO DAILY [facility] Last Admin: 08/16/16 09:12 Dose: 17 gm Constitutional: Yes: NAD Neck: Yes: Trachea Midline Cardiovascular: Yes: Regular Rate and Rhythm, S1, S2 Respiratory: Yes: Clear, Diminished at bases Gastrointestinal: Yes: Normal Bowel Sounds, Soft Edema: No Neurological: Yes: Alert, Oriented (to name and place) Labs: Problem List - Problems (1) Altered mental status Assessment/Plan: Code(s): R41.82 - ALTERED MENTAL STATUS, UNSPECIFIED Qualifiers: Altered mental status type: disorientation Qualified Code(s): R41.0 - Disorientation, unspecified (2) Abnormal chest x-ray Assessment/Plan: Code(s): R93.8 - ABNORMAL FINDINGS ON DIAGNOSTIC IMAGING OF BODY STRUCTURES (3) Hallucination, visual Assessment/Plan: Code(s): R44.1 - VISUAL HALLUCINATIONS (4) Sinusitis Assessment/Plan: Code(s): J32.9 - CHRONIC SINUSITIS, UNSPECIFIED Qualifiers: Sinusitis location: maxillary Chronicity: chronic Qualified Code(s) : J32.0 - Chronic maxillary sinusitis (5) Acute renal insufficiency Assessment/Plan: Code(s): N28.9 - DISORDER OF KIDNEY AND URETER, UNSPECIFIED Assessment/Plan Can repeat CXR as outpatient if there are any respiratory clinical symptoms Fall precautions No Pulmonary contraindication for D/C Dr Brooks Problem List - Problems (1) Altered mental status Code(s): R41.82 - ALTERED MENTAL STATUS, UNSPECIFIED Qualifiers: Altered mental status type: disorientation Qualified Code(s): R41.0 - Disorientation, unspecified (2) Chronic kidney disease (CKD) Code(s): N18.9 - CHRONIC KIDNEY DISEASE, UNSPECIFIED (3) Hallucination, visual Code(s): R44.1 - VISUAL HALLUCINATIONS (4) Sinusitis Code(s): J32.9 - CHRONIC SINUSITIS, UNSPECIFIED Qualifiers: Sinusitis location: maxillary Chronicity: chronic Qualified Code(s) : J32.0 - Chronic maxillary sinusitis (5) Abnormal chest x-ray Code(s): R93.8 - ABNORMAL FINDINGS ON DIAGNOSTIC IMAGING OF BODY STRUCTURES (6) Acute renal insufficiency Code(s): N28.9 - DISORDER OF KIDNEY AND URETER, UNSPECIFIED (7) Anxiety and depression Code(s): F41.9 - ANXIETY DISORDER, UNSPECIFIED F32.9 - MAJOR DEPRESSIVE DISORDER, SINGLE EPISODE, UNSPECIFIED (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 Code(s): I69.320 - APHASIA FOLLOWING CEREBRAL INFARCTION (9) CVA (cerebral vascular accident) Code(s): I63.9 - CEREBRAL INFARCTION, UNSPECIFIED Qualifiers: CVA mechanism: unspecified Qualified Code(s): I63.9 - Cerebral infarction, unspecified (10) Confusion state Code(s): F44.89 - OTHER DISSOCIATIVE AND CONVERSION DISORDERS (11) Dementia Code(s): F03.90 - UNSPECIFIED DEMENTIA WITHOUT BEHAVIORAL DISTURBANCE (12) Frequent falls Code(s): R29.6 - REPEATED FALLS (13) GERD (gastroesophageal reflux disease) Code(s): K21.9 - GASTRO-ESOPHAGEAL REFLUX DISEASE WITHOUT ESOPHAGITIS (14) Knee pain Code(s): M25.569 - PAIN IN UNSPECIFIED KNEE (15) Multiple lacunar infarcts Code(s): I63.9 - CEREBRAL INFARCTION, UNSPECIFIED
--- NOTE | 2016-08-16 12:29 | PN ---
Progress Note, Physician Chief Complaint: HAD D/W FAMILY MEMBER MULTIPLE REQUESTS MULTIPLE QUESTIONS - Current Medication List Current Medications: Active Medications Acetaminophen (Tylenol -) 650 mg PO Q4H PRN PRN Reason: FEVER OR PAIN Last Admin: 08/15/16 18:11 Dose: 650 mg Albuterol Sulfate (Ventolin 0.083% Nebulizer Soln -) 1 amp NEB Q6H PRN PRN Reason: SHORT OF BREATH/WHEEZING Last Admin: 08/15/16 00:00 Dose: 1 amp Allopurinol (Zyloprim -) 300 mg PO DAILY [facility] Last Admin: 08/16/16 09:11 Dose: 300 mg Aspirin (Asa -) 81 mg PO DAILY [facility] Last Admin: 08/16/16 09:11 Dose: 81 mg Atenolol (Tenormin -) 50 mg PO DAILY [facility] Last Admin: 08/16/16 09:11 Dose: 50 mg Atorvastatin Calcium (Lipitor -) 20 mg PO HS [facility] Last Admin: 08/15/16 22:26 Dose: 20 mg Fluoxetine HCl (Prozac -) 60 mg PO DAILY [facility] Last Admin: 08/16/16 09:11 Dose: 60 mg Haloperidol (Haldol -) 1 mg PO BID [facility] Last Admin: 08/16/16 09:11 Dose: 1 mg Heparin Sodium (Porcine) (Heparin -) 5,000 unit SQ BID [facility] Last Admin: 08/16/16 09:12 Dose: 5,000 unit Hydroxyurea (Hydrea -) 500 mg PO TuThSa [facility] Last Admin: 08/16/16 09:11 Dose: 500 mg Pantoprazole Sodium (Protonix -) 40 mg PO DAILY [facility] Last Admin: 08/16/16 09:11 Dose: 40 mg Polyethylene Glycol (Miralax (For Daily Use) -) 17 gm PO DAILY [facility] Last Admin: 08/16/16 09:12 Dose: 17 gm - Objective Vital Signs: Vital Signs Temperature 97.7 F 08/16/16 08:00 Pulse Rate 65 08/16/16 08:00 Respiratory Rate 20 08/16/16 08:00 Blood Pressure 135/74 08/16/16 08:00 O2 Sat by Pulse Oximetry (%) 95 08/15/16 21:00 Constitutional: Yes: Calm Cardiovascular: Yes: Regular Rate and Rhythm, S1, S2 Respiratory: Yes: CTA Bilaterally Gastrointestinal: Yes: Normal Bowel Sounds, Soft Edema: No Neurological: Yes: Other (MILD AGITATION. ANSWERS MY QUESTIONS & FOLLOWS COMMANDS. ASKED FOR MY BUSINESS CARD.) Labs: CBC, BMP 08/16/16 06:15 08/16/16 06:15 INR, PTT INR Cancelled 08/08/16 02:58 Problem List - Problems (1) Altered mental status Code(s): R41.82 - ALTERED MENTAL STATUS, UNSPECIFIED Qualifiers: Altered mental status type: disorientation Qualified Code(s): R41.0 - Disorientation, unspecified (2) Hallucination, visual Code(s): R44.1 - VISUAL HALLUCINATIONS (3) Sinusitis Code(s): J32.9 - CHRONIC SINUSITIS, UNSPECIFIED Qualifiers: Sinusitis location: maxillary Chronicity: chronic Qualified Code(s) : J32.0 - Chronic maxillary sinusitis (4) Abnormal chest x-ray Code(s): R93.8 - ABNORMAL FINDINGS ON DIAGNOSTIC IMAGING OF BODY STRUCTURES (5) Acute renal insufficiency Code(s): N28.9 - DISORDER OF KIDNEY AND URETER, UNSPECIFIED Assessment/Plan (1) Altered mental status Assessment/Plan: psych saw patient family has filed an appeal for discharge patient sedated throughout day -> haldol decreased to 1bid seems less sedated & less agitated on haldol 1bid only Code(s): R41.82 - ALTERED MENTAL STATUS, UNSPECIFIED Qualifiers: Altered mental status type: disorientation Qualified Code(s): R41.0 - Disorientation, unspecified (2) Abnormal chest x-ray Assessment/Plan: pulm eval no contraindication for discharge can get outpatient cxr if he his respiratory status worsens Code(s): R93.8 - ABNORMAL FINDINGS ON DIAGNOSTIC IMAGING OF BODY STRUCTURES (3) Hallucination, visual Assessment/Plan: d/w dr momin will monitor for agressive behavior MRI noted chronic infarcts noted no new acute pathology Code(s): R44.1 - VISUAL HALLUCINATIONS (4) Sinusitis Assessment/Plan: chronic on ct scan Code(s): J32.9 - CHRONIC SINUSITIS, UNSPECIFIED Qualifiers: Sinusitis location: maxillary Chronicity: chronic Qualified Code(s) : J32.0 - Chronic maxillary sinusitis (5) Acute renal insufficiency Assessment/Plan: improving renal eval noted has baseline cr 1.5-1.7 renal and bladder ultrasound noted no acute pathology, normal kindey and bladder Code(s): N28.9 - DISORDER OF KIDNEY AND URETER, 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
--- NOTE | 2016-08-16 13:22 | PN ---
Progress Note (short form) - Note Progress Note: Renal Follow up for ANSELMO/CKD Pt seen and examined at the bedside more awake and alert today has some cough and congestion denies sob, chest pain Vital Signs Temperature 97.7 F 08/16/16 08:00 Pulse Rate 65 08/16/16 08:00 Respiratory Rate 20 08/16/16 08:00 Blood Pressure 135/74 08/16/16 08:00 O2 Sat by Pulse Oximetry (%) 95 08/15/16 21:00 Intake & Output 08/13/16 08/14/16 08/15/16 08/16/16 23:59 23:59 23:59 23:59 Intake Total 1050 1050 500 Balance 1050 1050 500 Gen: NAD CVS: RRR, No M/R Lungs: CTA, dec BS lung bases Abd: soft NT/ND Ext: No edema, clubbing or cyanosis : No bladder distension CBC, BMP 08/16/16 06:15 08/16/16 06:15 Current Medications Acetaminophen (Tylenol -) 650 mg PO Q4H PRN PRN Reason: FEVER OR PAIN Last Admin: 08/15/16 18:11 Dose: 650 mg Albuterol Sulfate (Ventolin 0.083% Nebulizer Soln -) 1 amp NEB Q6H PRN PRN Reason: SHORT OF BREATH/WHEEZING Last Admin: 08/15/16 00:00 Dose: 1 amp Allopurinol (Zyloprim -) 300 mg PO DAILY [facility] Last Admin: 08/16/16 09:11 Dose: 300 mg Aspirin (Asa -) 81 mg PO DAILY [facility] Last Admin: 08/16/16 09:11 Dose: 81 mg Atenolol (Tenormin -) 50 mg PO DAILY [facility] Last Admin: 08/16/16 09:11 Dose: 50 mg Atorvastatin Calcium (Lipitor -) 20 mg PO HS [facility] Last Admin: 08/15/16 22:26 Dose: 20 mg Fluoxetine HCl (Prozac -) 60 mg PO DAILY [facility] Last Admin: 08/16/16 09:11 Dose: 60 mg Haloperidol (Haldol -) 1 mg PO BID [facility] Last Admin: 08/16/16 09:11 Dose: 1 mg Heparin Sodium (Porcine) (Heparin -) 5,000 unit SQ BID [facility] Last Admin: 08/16/16 09:12 Dose: 5,000 unit Hydroxyurea (Hydrea -) 500 mg PO TuThSa [facility] Last Admin: 08/16/16 09:11 Dose: 500 mg Pantoprazole Sodium (Protonix -) 40 mg PO DAILY [facility] Last Admin: 08/16/16 09:11 Dose: 40 mg Polyethylene Glycol (Miralax (For Daily Use) -) 17 gm PO DAILY [facility] Last Admin: 08/16/16 09:12 Dose: 17 gm A/P 80 year old Gentleman with PMhx of CVA/TIA, CKD (baseline Cr 1.6), Hypertension presented with AMS/Fall s/p revent CVA. #ANSELMO/CKD Renal function remains stable Renal Us showed normal size kidneys w/o evidence of obstruction or stones continue current management avoid NSAIDs, IV Contrast, Fleet enemas Pt may benifit from BARRY/ARB, can plan to start as outpatient #Recent CVA/Agitation MRI w/o any new acute infarcts Neurology and Psych following standing haldol as per Psych #Hypertension BP is at goal on Atenolol Thank you Lee Ramirez DO
[2016-08-16] MEDS ORDERED: HALOPERIDOL 5 MG TABLET (FP) PO SCH (15:11)
[2016-08-16] MEDS: ALPRAZolam 0.25 MG TABLET PO PRN (15:29)
[2016-08-16] MEDS: ATORVASTATIN CA 20 MG TABLET (FP) PO SCH (22:00)
[2016-08-17 08:16] LABS: ALBUMIN 3.1 g/dl (3.4-5.0); BILIRUBIN,TOTAL 0.7 mg/dL (0.2-1.0); CALCIUM 9.4 mg/dL (8.5-10.1); CREATININE 1.6 mg/dL (0.7-1.3)
[2016-08-17 08:46] LABS: BASOPHIL 2.1 % (0-2.0); EOSINOPHIL 12.4 % (0-4.5); MCH 32.3 pg (25.7-33.7); MCHC 33.4 g/dl (32.0-35.9); MEAN CELL VOLUME 96.7 fl (80-96); MEAN PLT VOLUME 8.3 fl (7.5-11.1); NEUTROPHILS 44.1 % (42.8-82.8); PLATELET COUNT 335 K/MM3 (134-434); RDW 17.2 % (11.9-15.9); WHITE BLOOD COUNT 9.4 K/mm3 (4.0-10.0)
--- NOTE | 2016-08-17 09:41 | PN ---
Progress Note, Physician Chief Complaint: SITTING IN [place] NO DISTRESS - Current Medication List Current Medications: Active Medications Acetaminophen (Tylenol -) 650 mg PO Q4H PRN PRN Reason: FEVER OR PAIN Last Admin: 08/15/16 18:11 Dose: 650 mg Albuterol Sulfate (Ventolin 0.083% Nebulizer Soln -) 1 amp NEB Q6H PRN PRN Reason: SHORT OF BREATH/WHEEZING Last Admin: 08/15/16 00:00 Dose: 1 amp Allopurinol (Zyloprim -) 300 mg PO DAILY [facility] Last Admin: 08/16/16 09:11 Dose: 300 mg Alprazolam (Xanax -) 1 mg PO BID PRN PRN Reason: AGITATION Last Admin: 08/16/16 15:29 Dose: 1 mg Aspirin (Asa -) 81 mg PO DAILY [facility] Last Admin: 08/16/16 09:11 Dose: 81 mg Atenolol (Tenormin -) 50 mg PO DAILY [facility] Last Admin: 08/16/16 09:11 Dose: 50 mg Atorvastatin Calcium (Lipitor -) 20 mg PO HS [facility] Last Admin: 08/16/16 22:00 Dose: 20 mg Fluoxetine HCl (Prozac -) 60 mg PO DAILY [facility] Last Admin: 08/16/16 09:11 Dose: 60 mg Haloperidol (Haldol -) 1 mg PO BID [facility] Last Admin: 08/16/16 22:00 Dose: 1 mg Heparin Sodium (Porcine) (Heparin -) 5,000 unit SQ BID [facility] Last Admin: 08/16/16 22:00 Dose: 5,000 unit Hydroxyurea (Hydrea -) 500 mg PO [facility] Last Admin: 08/16/16 09:11 Dose: 500 mg Pantoprazole Sodium (Protonix -) 40 mg PO DAILY [facility] Last Admin: 08/16/16 09:11 Dose: 40 mg Polyethylene Glycol (Miralax (For Daily Use) -) 17 gm PO DAILY [facility] Last Admin: 08/16/16 09:12 Dose: 17 gm - Objective Vital Signs: Vital Signs Temperature 98.1 F 08/17/16 06:31 Pulse Rate 61 08/17/16 06:31 Respiratory Rate 20 08/17/16 06:31 Blood Pressure 149/88 08/17/16 06:31 O2 Sat by Pulse Oximetry (%) 94 L 08/16/16 21:00 Cardiovascular: Yes: WNL Respiratory: Yes: WNL Gastrointestinal: Yes: WNL Edema: No Labs: CBC, BMP 08/17/16 06:20 08/17/16 06:20 INR, PTT INR Cancelled 08/08/16 02:58 Problem List - Problems (1) Altered mental status Code(s): R41.82 - ALTERED MENTAL STATUS, UNSPECIFIED Qualifiers: Altered mental status type: disorientation Qualified Code(s): R41.0 - Disorientation, unspecified (2) Hallucination, visual Code(s): R44.1 - VISUAL HALLUCINATIONS (3) Sinusitis Code(s): J32.9 - CHRONIC SINUSITIS, UNSPECIFIED Qualifiers: Sinusitis location: maxillary Chronicity: chronic Qualified Code(s) : J32.0 - Chronic maxillary sinusitis (4) Abnormal chest x-ray Code(s): R93.8 - ABNORMAL FINDINGS ON DIAGNOSTIC IMAGING OF BODY STRUCTURES (5) Acute renal insufficiency Code(s): N28.9 - DISORDER OF KIDNEY AND URETER, UNSPECIFIED Assessment/Plan (1) Altered mental status Assessment/Plan: psych saw patient family has filed an appeal for discharge family very involved psych rx changed to family requested doses -> resistant to dc Code(s): R41.82 - ALTERED MENTAL STATUS, UNSPECIFIED Qualifiers: Altered mental status type: disorientation Qualified Code(s): R41.0 - Disorientation, unspecified (2) Abnormal chest x-ray Assessment/Plan: pulm eval no contraindication for discharge can get outpatient cxr if he his respiratory status worsens Code(s): R93.8 - ABNORMAL FINDINGS ON DIAGNOSTIC IMAGING OF BODY STRUCTURES (3) Hallucination, visual Assessment/Plan: d/w dr momin will monitor for agressive behavior MRI noted chronic infarcts noted no new acute pathology Code(s): R44.1 - VISUAL HALLUCINATIONS (4) Sinusitis Assessment/Plan: chronic on ct scan Code(s): J32.9 - CHRONIC SINUSITIS, UNSPECIFIED Qualifiers: Sinusitis location: maxillary Chronicity: chronic Qualified Code(s) : J32.0 - Chronic maxillary sinusitis (5) Acute renal insufficiency Assessment/Plan: improving renal eval noted has baseline cr 1.5-1.7 renal and bladder ultrasound noted no acute pathology, normal kindey and bladder Code(s): N28.9 - DISORDER OF KIDNEY AND URETER, UNSPECIFIED DISCHARGE [employer] [facility]
[2016-08-17] MEDS ORDERED: PT OWN MED DRAWER 7, Y5N ONE ×2 (09:53→20:55)
[2016-08-17] MEDS: ALLOPURINOL 300 MG TABLET (FP) PO SCH (09:54)
[2016-08-17] MEDS: HEPARIN NA (PORCINE) 5,000 UNITS/ML 1ML VIAL SQ SCH ×2 (09:54→21:59)
[2016-08-17] MEDS: FLUoxetine HCL 20 MG CAPSULE (FP) PO SCH (09:54)
[2016-08-17] MEDS: HALOPERIDOL 1 MG TABLET (FP) PO SCH ×2 (09:54→21:59)
[2016-08-17] MEDS: POLYETHYLENE GLYCOL 3350 119 GM BTL PO SCH (09:54)
[2016-08-17] MEDS: ASPIRIN 81 MG CHEWABLE TABLETS PO SCH (09:54)
[2016-08-17] MEDS: PANTOPRAZOLE 40 MG TABLET (FP) PO SCH (09:54)
[2016-08-17] MEDS: ATENOLOL 50 MG TABLET (FP) PO SCH (09:54)
--- NOTE | 2016-08-17 11:57 | PN ---
Progress Note (short form) - Note Progress Note: No acute events overnight. Resting in NAD. No significant change from yesterday. Intake & Output 08/14/16 08/15/16 08/16/16 08/17/16 23:59 23:59 23:59 23:59 Intake Total 1050 500 Balance 1050 500 Last Vital Signs Temp Pulse Resp BP Pulse Ox 98.1 F 62 18 157/75 94 L 08/17/16 10:00 08/17/16 10:00 08/17/16 10:00 08/17/16 10:00 08/16/16 21:00 Active Medications Acetaminophen (Tylenol -) 650 mg PO Q4H PRN PRN Reason: FEVER OR PAIN Last Admin: 08/15/16 18:11 Dose: 650 mg Albuterol Sulfate (Ventolin 0.083% Nebulizer Soln -) 1 amp NEB Q6H PRN PRN Reason: SHORT OF BREATH/WHEEZING Last Admin: 08/15/16 00:00 Dose: 1 amp Allopurinol (Zyloprim -) 300 mg PO DAILY [facility] Last Admin: 08/17/16 09:54 Dose: 300 mg Alprazolam (Xanax -) 1 mg PO BID PRN PRN Reason: AGITATION Last Admin: 08/16/16 15:29 Dose: 1 mg Aspirin (Asa -) 81 mg PO DAILY [facility] Last Admin: 08/17/16 09:54 Dose: 81 mg Atenolol (Tenormin -) 50 mg PO DAILY [facility] Last Admin: 08/17/16 09:54 Dose: 50 mg Atorvastatin Calcium (Lipitor -) 20 mg PO HS [facility] Last Admin: 08/16/16 22:00 Dose: 20 mg Fluoxetine HCl (Prozac -) 60 mg PO DAILY [facility] Last Admin: 08/17/16 09:54 Dose: 60 mg Haloperidol (Haldol -) 1 mg PO BID [facility] Last Admin: 08/17/16 09:54 Dose: 1 mg Heparin Sodium (Porcine) (Heparin -) 5,000 unit SQ BID [facility] Last Admin: 08/17/16 09:54 Dose: 5,000 unit Hydroxyurea (Hydrea -) 500 mg PO TuThSa [facility] Last Admin: 08/16/16 09:11 Dose: 500 mg Pantoprazole Sodium (Protonix -) 40 mg PO DAILY [facility] Last Admin: 08/17/16 09:54 Dose: 40 mg Polyethylene Glycol (Miralax (For Daily Use) -) 17 gm PO DAILY [facility] Last Admin: 08/17/16 09:54 Dose: 17 gm Constitutional: Yes: NAD Neck: Yes: Trachea Midline Cardiovascular: Yes: Regular Rate and Rhythm, S1, S2 Respiratory: Yes: Clear, Diminished at bases Gastrointestinal: Yes: Normal Bowel Sounds, Soft Edema: No Neurological: Yes: Alert, Oriented (to name and place) Labs: Laboratory Results - last 24 hr 08/17/16 08/17/16 06:20 06:20 WBC 9.4 RBC 3.97 L Hgb 12.8 Hct 38.4 MCV 96.7 H MCHC 33.4 RDW 17.2 H Plt Count 335 MPV 8.3 Neutrophils % 44.1 Lymphocytes % 24.9 Monocytes % 16.5 H Eosinophils % 12.4 H Basophils % 2.1 H Sodium 147 H Potassium 4.6 Chloride 108 H Carbon Dioxide 31 Anion Gap 8 BUN 40 H Creatinine 1.6 H Creat Clearance w eGFR 42.01 Random Glucose 84 Calcium 9.4 Total Bilirubin 0.7 D AST 31 ALT 24 Alkaline Phosphatase 65 Total Protein 7.0 Albumin 3.1 L Problem List - Problems (1) Altered mental status Assessment/Plan: Code(s): R41.82 - ALTERED MENTAL STATUS, UNSPECIFIED Qualifiers: Altered mental status type: disorientation Qualified Code(s): R41.0 - Disorientation, unspecified (2) Abnormal chest x-ray Assessment/Plan: Code(s): R93.8 - ABNORMAL FINDINGS ON DIAGNOSTIC IMAGING OF BODY STRUCTURES (3) Hallucination, visual Assessment/Plan: Code(s): R44.1 - VISUAL HALLUCINATIONS (4) Sinusitis Assessment/Plan: Code(s): J32.9 - CHRONIC SINUSITIS, UNSPECIFIED Qualifiers: Sinusitis location: maxillary Chronicity: chronic Qualified Code(s) : J32.0 - Chronic maxillary sinusitis (5) Acute renal insufficiency Assessment/Plan: Code(s): N28.9 - DISORDER OF KIDNEY AND URETER, UNSPECIFIED Assessment/Plan Fall precautions No Pulmonary contraindication for D/C Dr Brooks Problem List - Problems (1) Altered mental status Code(s): R41.82 - ALTERED MENTAL STATUS, UNSPECIFIED Qualifiers: Altered mental status type: disorientation Qualified Code(s): R41.0 - Disorientation, unspecified (2) Chronic kidney disease (CKD) Code(s): N18.9 - CHRONIC KIDNEY DISEASE, UNSPECIFIED (3) Hallucination, visual Code(s): R44.1 - VISUAL HALLUCINATIONS (4) Sinusitis Code(s): J32.9 - CHRONIC SINUSITIS, UNSPECIFIED Qualifiers: Sinusitis location: maxillary Chronicity: chronic Qualified Code(s) : J32.0 - Chronic maxillary sinusitis (5) Abnormal chest x-ray Code(s): R93.8 - ABNORMAL FINDINGS ON DIAGNOSTIC IMAGING OF BODY STRUCTURES (6) Acute renal insufficiency Code(s): N28.9 - DISORDER OF KIDNEY AND URETER, UNSPECIFIED (7) Anxiety and depression Code(s): F41.9 - ANXIETY DISORDER, UNSPECIFIED F32.9 - MAJOR DEPRESSIVE DISORDER, SINGLE EPISODE, UNSPECIFIED (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 Code(s): I69.320 - APHASIA FOLLOWING CEREBRAL INFARCTION (9) CVA (cerebral vascular accident) Code(s): I63.9 - CEREBRAL INFARCTION, UNSPECIFIED Qualifiers: CVA mechanism: unspecified Qualified Code(s): I63.9 - Cerebral infarction, unspecified (10) Confusion state Code(s): F44.89 - OTHER DISSOCIATIVE AND CONVERSION DISORDERS (11) Dementia Code(s): F03.90 - UNSPECIFIED DEMENTIA WITHOUT BEHAVIORAL DISTURBANCE (12) Frequent falls Code(s): R29.6 - REPEATED FALLS (13) GERD (gastroesophageal reflux disease) Code(s): K21.9 - GASTRO-ESOPHAGEAL REFLUX DISEASE WITHOUT ESOPHAGITIS (14) Knee pain Code(s): M25.569 - PAIN IN UNSPECIFIED KNEE (15) Multiple lacunar infarcts Code(s): I63.9 - CEREBRAL INFARCTION, UNSPECIFIED
--- NOTE | 2016-08-17 13:39 | PN ---
Progress Note, BUSINESS INTERN - Note Progress Note: 80 year old male seen a bedside as a follow up to [facility] (08/15/16) with LLiss with a recommendation of puree and honey thicken liquids. Appetite records indicates that patient is consuming meals with poor intake. Pt is verbal with poor articulation, edentulous, and able to answer y/n questions reliably. education manager Steven reported occasional coughing with meals. Pt given po trial of puree with total assistance revealed good acceptance, bolus control, formation and transport is adequate. Pharyngeal swallow appears delayed (2-3 seconds) at times with no change in voicing or respiration. Honey thicken liquids trials were unremarkable for dysphagia and or aspiration at this time. Recommendations: Continue dysphagia puree and honey thicken liquids as tolerated. Per [facility], reduce distractions, remind pt to swallow with each bite. No independent feeding or drinking. Feed pt only when he is alert. Observe standard aspiration precautions. Results given verbally to extension service specialist in charge Steven and to pcp via chart.
[2016-08-17] MEDS: ATORVASTATIN CA 20 MG TABLET (FP) PO SCH (21:59)
[2016-08-18 07:20] LABS: BASOPHIL 1.4 % (0-2.0); EOSINOPHIL 7.1 % (0-4.5); MCH 32.6 pg (25.7-33.7); MCHC 33.6 g/dl (32.0-35.9); MEAN CELL VOLUME 97.1 fl (80-96); MEAN PLT VOLUME 8.4 fl (7.5-11.1); NEUTROPHILS 47.3 % (42.8-82.8); PLATELET COUNT 347 K/MM3 (134-434); RDW 17.9 % (11.9-15.9); WHITE BLOOD COUNT 8.8 K/mm3 (4.0-10.0)
[2016-08-18 07:31] LABS: BILIRUBIN,TOTAL 0.7 mg/dL (0.2-1.0); CALCIUM 9.1 mg/dL (8.5-10.1); CREATININE 1.8 mg/dL (0.7-1.3); TOT PROT 6.8 g/dl (6.4-8.2)
--- NOTE | 2016-08-18 08:53 | DS ---
Physical Examination Vital Signs: Vital Signs Temperature 97.9 F 08/18/16 06:00 Pulse Rate 63 08/18/16 06:00 Respiratory Rate 18 08/18/16 06:00 Blood Pressure 112/72 08/18/16 06:00 O2 Sat by Pulse Oximetry (%) 95 08/17/16 21:00 Findings/Remarks: calm this am eating Cardiovascular: Yes: Regular Rate and Rhythm Respiratory: Yes: Regular, CTA Bilaterally Gastrointestinal: Yes: Normal Bowel Sounds, Soft Neurological: Yes: Alert, Pre-Existing Deficit Labs: CBC, BMP 08/18/16 06:30 08/18/16 06:30 Discharge Summary Reason For Visit: AMS SINUSITIS Current Active Problems Altered mental status (Acute) Chronic kidney disease (CKD) (Acute) Hallucination, visual (Acute) Sinusitis (Acute) Hospital Course: (1) Altered mental status Assessment/Plan: psych saw patient family has filed an appeal for discharge family very involved psych rx changed to family requested doses -> resistant to dc Code(s): R41.82 - ALTERED MENTAL STATUS, UNSPECIFIED Qualifiers: Altered mental status type: disorientation Qualified Code(s): R41.0 - Disorientation, unspecified (2) Abnormal chest x-ray Assessment/Plan: pulm eval no contraindication for discharge can get outpatient cxr if he his respiratory status worsens Code(s): R93.8 - ABNORMAL FINDINGS ON DIAGNOSTIC IMAGING OF BODY STRUCTURES (3) Hallucination, visual Assessment/Plan: d/w dr momin will monitor for aggressive behavior MRI noted chronic infarcts noted no new acute pathology Code(s): R44.1 - VISUAL HALLUCINATIONS (4) Sinusitis Assessment/Plan: chronic on ct scan Code(s): J32.9 - CHRONIC SINUSITIS, UNSPECIFIED Qualifiers: Sinusitis location: maxillary Chronicity: chronic Qualified Code(s) : J32.0 - Chronic maxillary sinusitis (5) Acute renal insufficiency Assessment/Plan: improving renal eval noted has baseline cr 1.5-1.7 renal and bladder ultrasound noted no acute pathology, normal kindey and bladder Code(s): N28.9 - DISORDER OF KIDNEY AND URETER, UNSPECIFIED DISCHARGE Condition: Stable - Instructions Diet, Activity, Other Instructions: hydroxyurea on ,,and thursday 500mg po daily Referrals: Jose De Leon MD [Primary Care Provider] - Disposition: [facility] - Home Medications Comprehensive Discharge Medication List: Ambulatory Orders Allopurinol [Zyloprim -] 300 mg PO DAILY 09/24/14 Atorvastatin Ca [Lipitor] 20 mg PO HS 09/24/14 Pantoprazole Sodium [Protonix -] 40 mg PO DAILY #14 tablet.ec 07/22/16 Aspirin [ASA -] 81 mg PO DAILY 08/02/16 Atenolol [Tenormin] 50 mg PO DAILY 08/02/16 Fluoxetine HCl Liquid [Prozac 20mg/5mL Oral Solution -] 60 mg PO DAILY 08/02/16 Hydroxyurea [Hydrea 500Mg Capsule -] 500 mg PO TuThSa capsule 08/12/16 Acetaminophen [Tylenol .Regular Strength -] 650 mg PO Q6H PRN #0 tablet Albuterol 0.083% Nebulizer Nohemi [Ventolin 0.083% Nebulizer Soln -] 1 amp NEB Q6H PRN #0 amp 08/16/16 Alprazolam [Xanax] 1 mg PO BID PRN #60 tablet MDD 2 08/16/16 Haloperidol [Haldol -] 2.5 mg PO BID tablet 08/16/16 Heparin - 5,000 unit SQ BID vial 08/16/16 Polyethylene Glycol 3350 [Miralax 119 gm Btl -] 17 gm PO DAILY bottle 08/16/16
[2016-08-18] MEDS ORDERED: PT OWN MED DRAWER 7, Y5N ONE ×2 (09:26→20:45)
[2016-08-18] MEDS: HALOPERIDOL 1 MG TABLET (FP) PO SCH ×2 (09:27→21:01)
[2016-08-18] MEDS: FLUoxetine HCL 20 MG CAPSULE (FP) PO SCH (09:27)
[2016-08-18] MEDS: ALLOPURINOL 300 MG TABLET (FP) PO SCH (09:27)
[2016-08-18] MEDS: ASPIRIN 81 MG CHEWABLE TABLETS PO SCH (09:28)
[2016-08-18] MEDS: POLYETHYLENE GLYCOL 3350 119 GM BTL PO SCH (09:28)
[2016-08-18] MEDS: ATENOLOL 50 MG TABLET (FP) PO SCH (09:28)
[2016-08-18] MEDS: PANTOPRAZOLE 40 MG TABLET (FP) PO SCH (09:28)
[2016-08-18] MEDS: HEPARIN NA (PORCINE) 5,000 UNITS/ML 1ML VIAL SQ SCH ×2 (09:28→21:01)
--- NOTE | 2016-08-18 11:52 | PN ---
Progress Note (short form) - Note Progress Note: Renal Follow up for ANSELMO/CKD Pt seen and examined at the bedside awake and alert no acute complaints wants to eat more solid foods Vital Signs Temperature 98.4 F 08/18/16 10:00 Pulse Rate 59 L 08/18/16 10:00 Respiratory Rate 18 08/18/16 10:00 Blood Pressure 116/95 08/18/16 10:00 O2 Sat by Pulse Oximetry (%) 95 08/17/16 21:00 Intake & Output 08/15/16 08/16/16 08/17/16 08/18/16 23:59 23:59 23:59 23:59 Intake Total 500 100 200 Balance 500 100 200 Gen: NAD CVS: RRR, No M/R Lungs: CTA, dec BS lung bases Abd: soft NT/ND Ext: No edema, clubbing or cyanosis : No bladder distension CBC, BMP 08/18/16 06:30 08/18/16 06:30 Current Medications Acetaminophen (Tylenol -) 650 mg PO Q4H PRN PRN Reason: FEVER OR PAIN Last Admin: 08/15/16 18:11 Dose: 650 mg Albuterol Sulfate (Ventolin 0.083% Nebulizer Soln -) 1 amp NEB Q6H PRN PRN Reason: SHORT OF BREATH/WHEEZING Last Admin: 08/15/16 00:00 Dose: 1 amp Allopurinol (Zyloprim -) 300 mg PO DAILY [facility] Last Admin: 08/18/16 09:27 Dose: 300 mg Alprazolam (Xanax -) 1 mg PO BID PRN PRN Reason: AGITATION Last Admin: 08/16/16 15:29 Dose: 1 mg Aspirin (Asa -) 81 mg PO DAILY [facility] Last Admin: 08/18/16 09:28 Dose: 81 mg Atenolol (Tenormin -) 50 mg PO DAILY [facility] Last Admin: 08/18/16 09:28 Dose: 50 mg Atorvastatin Calcium (Lipitor -) 20 mg PO HS [facility] Last Admin: 08/17/16 21:59 Dose: 20 mg Fluoxetine HCl (Prozac -) 60 mg PO DAILY [facility] Last Admin: 08/18/16 09:27 Dose: 60 mg Haloperidol (Haldol -) 1 mg PO BID [facility] Last Admin: 08/18/16 09:27 Dose: 1 mg Heparin Sodium (Porcine) (Heparin -) 5,000 unit SQ BID [facility] Last Admin: 08/18/16 09:28 Dose: 5,000 unit Hydroxyurea (Hydrea -) 500 mg PO TuThSa [facility] Last Admin: 08/16/16 09:11 Dose: 500 mg Pantoprazole Sodium (Protonix -) 40 mg PO DAILY [facility] Last Admin: 08/18/16 09:28 Dose: 40 mg Polyethylene Glycol (Miralax (For Daily Use) -) 17 gm PO DAILY [facility] Last Admin: 08/18/16 09:28 Dose: Not Given A/P 80 year old Gentleman with PMhx of CVA/TIA, CKD (baseline Cr 1.6), Hypertension presented with AMS/Fall s/p revent CVA. #ANSELMO/CKD Renal function stable Pt likely with CKD Will need to trend as outpatient #Hypernatremia encouraged oral hydration via thickened liquids #Recent CVA/Agitation MRI w/o any new acute infarcts Neurology and Psych following standing haldol as per Psych #Hypertension BP is at goal on Atenolol Thank you Lee Ramirez DO
--- NOTE | 2016-08-18 11:57 | PN ---
Progress Note (short form) - Note Progress Note: PULMONARY Confused but denies shortness of breath or chest pain. Last Vital Signs Temp Pulse Resp BP Pulse Ox 98.4 F 59 L 18 116/95 95 08/18/16 10:00 08/18/16 10:00 08/18/16 10:00 08/18/16 10:00 08/17/16 21:00 Gen: NAD at rest Heart: RRR Lung: decreased breath sounds at the bases Abd: soft, nontender Ext no edema CBC, BMP 08/18/16 06:30 08/18/16 06:30 Active Medications Acetaminophen (Tylenol -) 650 mg PO Q4H PRN PRN Reason: FEVER OR PAIN Last Admin: 08/15/16 18:11 Dose: 650 mg Albuterol Sulfate (Ventolin 0.083% Nebulizer Soln -) 1 amp NEB Q6H PRN PRN Reason: SHORT OF BREATH/WHEEZING Last Admin: 08/15/16 00:00 Dose: 1 amp Allopurinol (Zyloprim -) 300 mg PO DAILY [facility] Last Admin: 08/18/16 09:27 Dose: 300 mg Alprazolam (Xanax -) 1 mg PO BID PRN PRN Reason: AGITATION Last Admin: 08/16/16 15:29 Dose: 1 mg Aspirin (Asa -) 81 mg PO DAILY [facility] Last Admin: 08/18/16 09:28 Dose: 81 mg Atenolol (Tenormin -) 50 mg PO DAILY [facility] Last Admin: 08/18/16 09:28 Dose: 50 mg Atorvastatin Calcium (Lipitor -) 20 mg PO HS [facility] Last Admin: 08/17/16 21:59 Dose: 20 mg Fluoxetine HCl (Prozac -) 60 mg PO DAILY [facility] Last Admin: 08/18/16 09:27 Dose: 60 mg Haloperidol (Haldol -) 1 mg PO BID [facility] Last Admin: 08/18/16 09:27 Dose: 1 mg Heparin Sodium (Porcine) (Heparin -) 5,000 unit SQ BID [facility] Last Admin: 08/18/16 09:28 Dose: 5,000 unit Hydroxyurea (Hydrea -) 500 mg PO TuThSa [facility] Last Admin: 08/16/16 09:11 Dose: 500 mg Pantoprazole Sodium (Protonix -) 40 mg PO DAILY [facility] Last Admin: 08/18/16 09:28 Dose: 40 mg Polyethylene Glycol (Miralax (For Daily Use) -) 17 gm PO DAILY [facility] Last Admin: 08/18/16 09:28 Dose: Not Given A/P Altered Mental Status Atelectasis h/o CVA HTN Acute on Chronic Renal Failure improved - aspiration precautions - incentive spirometry if able to follow directions - DVT prophylaxis - d/c planning
[2016-08-18] MEDS: ALPRAZolam 0.25 MG TABLET PO PRN (15:47)
[2016-08-18] MEDS: ATORVASTATIN CA 20 MG TABLET (FP) PO SCH (21:01)
[2016-08-19 06:12] LABS: URINE APPEARANCE CLEAR; URINE BILIRUBIN NEGATIVE (NEGATIVE); URINE BLOOD NEGATIVE (NEGATIVE); URINE COLOR AMBER; URINE GLUCOSE (UA) NEGATIVE (NEGATIVE); URINE KETONE NEGATIVE (NEGATIVE); URINE LEUK ESTERASE NEGATIVE (NEGATIVE); URINE NITRITE NEGATIVE (NEGATIVE); URINE UROBILINOGEN 4.0 E.U/dl E.U./dl (0.2-1.0)
[2016-08-19] MEDS: ALPRAZolam 2 MG TABLET PO PRN (06:14)
[2016-08-19 06:19] LABS: URINE PROTEIN 1+ (NEGATIVE)
[2016-08-19 06:21] LABS: URINE HYALINE CAST 4 /lpf; URINE MUCUS RARE; URINE RBC 1 /hpf (0-3); URINE WBC <1 /hpf (3-5)
[2016-08-19] MEDS ORDERED: PT OWN MED DRAWER 7, Y5N ONE (10:41)
[2016-08-19] MEDS: ATENOLOL 50 MG TABLET (FP) PO SCH (10:57)
[2016-08-19] MEDS: FLUoxetine HCL 20 MG CAPSULE (FP) PO SCH (10:57)
[2016-08-19] MEDS: HEPARIN NA (PORCINE) 5,000 UNITS/ML 1ML VIAL SQ SCH ×2 (10:58→21:01)
[2016-08-19] MEDS: HYDROXYUREA 500 MG CAPSULE PO SCH (10:58)
[2016-08-19] MEDS: PANTOPRAZOLE 40 MG TABLET (FP) PO SCH (10:58)
[2016-08-19] MEDS: ASPIRIN 81 MG CHEWABLE TABLETS PO SCH (10:58)
[2016-08-19] MEDS: HALOPERIDOL 1 MG TABLET (FP) PO SCH ×2 (10:59→21:01)
[2016-08-19] MEDS: ALLOPURINOL 300 MG TABLET (FP) PO SCH (10:59)
[2016-08-19] MEDS: POLYETHYLENE GLYCOL 3350 119 GM BTL PO SCH (11:01)
--- NOTE | 2016-08-19 11:26 | PN ---
Progress Note (short form) - Note Progress Note: PULMONARY Denies shortness of breath or chest pain. Remains confused. Last Vital Signs Temp Pulse Resp BP Pulse Ox 97.8 F 54 L 20 156/73 90 L 08/19/16 06:00 08/19/16 06:00 08/19/16 06:00 08/19/16 06:00 08/18/16 20:38 Gen: NAD at rest Heart: RRR Lung: decreased breath sounds at the bases Abd: soft, nontender Ext no edema CBC, BMP 08/18/16 06:30 08/18/16 06:30 Active Medications Acetaminophen (Tylenol -) 650 mg PO Q4H PRN PRN Reason: FEVER OR PAIN Last Admin: 08/15/16 18:11 Dose: 650 mg Albuterol Sulfate (Ventolin 0.083% Nebulizer Soln -) 1 amp NEB Q6H PRN PRN Reason: SHORT OF BREATH/WHEEZING Last Admin: 08/15/16 00:00 Dose: 1 amp Allopurinol (Zyloprim -) 300 mg PO DAILY [facility] Last Admin: 08/19/16 10:59 Dose: 300 mg Alprazolam (Xanax -) 1 mg PO Q12H PRN Last Admin: 08/19/16 06:14 Dose: 1 mg Aspirin (Asa -) 81 mg PO DAILY [facility] Last Admin: 08/19/16 10:58 Dose: 81 mg Atenolol (Tenormin -) 50 mg PO DAILY [facility] Last Admin: 08/19/16 10:57 Dose: 50 mg Atorvastatin Calcium (Lipitor -) 20 mg PO HS [facility] Last Admin: 08/18/16 21:01 Dose: 20 mg Fluoxetine HCl (Prozac -) 60 mg PO DAILY [facility] Last Admin: 08/19/16 10:57 Dose: 60 mg Haloperidol (Haldol -) 1 mg PO BID [facility] Last Admin: 08/19/16 10:59 Dose: 1 mg Heparin Sodium (Porcine) (Heparin -) 5,000 unit SQ BID [facility] Last Admin: 08/19/16 10:58 Dose: 5,000 unit Hydroxyurea (Hydrea -) 500 mg PO TuThSa [facility] Last Admin: 08/19/16 10:58 Dose: 500 mg Pantoprazole Sodium (Protonix -) 40 mg PO DAILY [facility] Last Admin: 08/19/16 10:58 Dose: 40 mg Polyethylene Glycol (Miralax (For Daily Use) -) 17 gm PO DAILY [facility] Last Admin: 08/19/16 11:01 Dose: Not Given A/P Altered Mental Status/Dementia Atelectasis h/o CVA HTN Acute on Chronic Renal Failure improved - aspiration precautions - incentive spirometry if able to follow directions - DVT prophylaxis - d/c planning
--- NOTE | 2016-08-19 11:30 | DS ---
Physical Examination Vital Signs: Vital Signs Temperature 97.8 F 08/19/16 06:00 Pulse Rate 54 L 08/19/16 06:00 Respiratory Rate 20 08/19/16 06:00 Blood Pressure 156/73 08/19/16 06:00 O2 Sat by Pulse Oximetry (%) 90 L 08/18/16 20:38 Cardiovascular: Yes: Regular Rate and Rhythm Respiratory: Yes: Regular, CTA Bilaterally Gastrointestinal: Yes: Normal Bowel Sounds, Soft Labs: CBC, BMP 08/18/16 06:30 08/18/16 06:30 Discharge Summary Reason For Visit: AMS SINUSITIS Current Active Problems Altered mental status (Acute) Chronic kidney disease (CKD) (Acute) Hallucination, visual (Acute) Sinusitis (Acute) Hospital Course: Hospital Course: (1) Altered mental status Assessment/Plan: psych saw patient family has filed an appeal for discharge family very involved psych rx changed to family requested doses -> resistant to dc Code(s): R41.82 - ALTERED MENTAL STATUS, UNSPECIFIED Qualifiers: Altered mental status type: disorientation Qualified Code(s): R41.0 - Disorientation, unspecified (2) Abnormal chest x-ray Assessment/Plan: pulm eval no contraindication for discharge can get outpatient cxr if he his respiratory status worsens Code(s): R93.8 - ABNORMAL FINDINGS ON DIAGNOSTIC IMAGING OF BODY STRUCTURES (3) Hallucination, visual Assessment/Plan: d/w dr momin will monitor for aggressive behavior MRI noted chronic infarcts noted no new acute pathology Code(s): R44.1 - VISUAL HALLUCINATIONS (4) Sinusitis Assessment/Plan: chronic on ct scan Code(s): J32.9 - CHRONIC SINUSITIS, UNSPECIFIED Qualifiers: Sinusitis location: maxillary Chronicity: chronic Qualified Code(s) : J32.0 - Chronic maxillary sinusitis (5) Acute renal insufficiency Assessment/Plan: improving renal eval noted has baseline cr 1.5-1.7 renal and bladder ultrasound noted no acute pathology, normal kindey and bladder Code(s): N28.9 - DISORDER OF KIDNEY AND URETER, UNSPECIFIED DISCHARGE Condition: Stable Condition: Stable - Instructions Diet, Activity, Other Instructions: hydroxyurea on ,,and thursday 500mg po daily Referrals: Jose De Leon MD [Primary Care Provider] - Disposition: [facility] - Home Medications Comprehensive Discharge Medication List: Ambulatory Orders Allopurinol [Zyloprim -] 300 mg PO DAILY 09/24/14 Atorvastatin Ca [Lipitor] 20 mg PO HS 09/24/14 Pantoprazole Sodium [Protonix -] 40 mg PO DAILY #14 tablet.ec 07/22/16 Aspirin [ASA -] 81 mg PO DAILY 08/02/16 Atenolol [Tenormin] 50 mg PO DAILY 08/02/16 Fluoxetine HCl Liquid [Prozac 20mg/5mL Oral Solution -] 60 mg PO DAILY 08/02/16 Hydroxyurea [Hydrea 500Mg Capsule -] 500 mg PO TuThSa capsule 08/12/16 Acetaminophen [Tylenol .Regular Strength -] 650 mg PO Q6H PRN #0 tablet Albuterol 0.083% Nebulizer Nohemi [Ventolin 0.083% Nebulizer Soln -] 1 amp NEB Q6H PRN #0 amp 08/16/16 Alprazolam [Xanax] 1 mg PO BID PRN #60 tablet MDD 2 08/16/16 Haloperidol [Haldol -] 2.5 mg PO BID tablet 08/16/16 Heparin - 5,000 unit SQ BID vial 08/16/16 Polyethylene Glycol 3350 [Miralax 119 gm Btl -] 17 gm PO DAILY bottle 08/16/16
--- NOTE | 2016-08-19 11:35 | PN ---
Progress Note (short form) - Note Progress Note: Renal Follow up for ANSELMO/CKD Pt seen and examined at the bedside sleeping but arouseable + cough + secretions in mouth Vital Signs Temperature 97.9 F 08/19/16 10:00 Pulse Rate 59 L 08/19/16 10:00 Respiratory Rate 18 08/19/16 10:00 Blood Pressure 142/74 08/19/16 10:00 O2 Sat by Pulse Oximetry (%) 90 L 08/18/16 20:38 Intake & Output 08/16/16 08/17/16 08/18/16 08/19/16 23:59 23:59 23:59 23:59 Intake Total 100 420 Output Total 250 Balance 100 170 Gen: NAD CVS: RRR, No M/R Lungs: CTA, dec BS lung bases Abd: soft NT/ND Ext: No edema, clubbing or cyanosis : No bladder distension CBC, BMP 08/18/16 06:30 08/18/16 06:30 Current Medications Acetaminophen (Tylenol -) 650 mg PO Q4H PRN PRN Reason: FEVER OR PAIN Last Admin: 08/15/16 18:11 Dose: 650 mg Albuterol Sulfate (Ventolin 0.083% Nebulizer Soln -) 1 amp NEB Q6H PRN PRN Reason: SHORT OF BREATH/WHEEZING Last Admin: 08/15/16 00:00 Dose: 1 amp Allopurinol (Zyloprim -) 300 mg PO DAILY [facility] Last Admin: 08/19/16 10:59 Dose: 300 mg Alprazolam (Xanax -) 1 mg PO Q12H PRN Last Admin: 08/19/16 06:14 Dose: 1 mg Aspirin (Asa -) 81 mg PO DAILY [facility] Last Admin: 08/19/16 10:58 Dose: 81 mg Atenolol (Tenormin -) 50 mg PO DAILY [facility] Last Admin: 08/19/16 10:57 Dose: 50 mg Atorvastatin Calcium (Lipitor -) 20 mg PO HS [facility] Last Admin: 08/18/16 21:01 Dose: 20 mg Fluoxetine HCl (Prozac -) 60 mg PO DAILY [facility] Last Admin: 08/19/16 10:57 Dose: 60 mg Haloperidol (Haldol -) 1 mg PO BID [facility] Last Admin: 08/19/16 10:59 Dose: 1 mg Heparin Sodium (Porcine) (Heparin -) 5,000 unit SQ BID [facility] Last Admin: 08/19/16 10:58 Dose: 5,000 unit Hydroxyurea (Hydrea -) 500 mg PO TuThSa [facility] Last Admin: 08/19/16 10:58 Dose: 500 mg Pantoprazole Sodium (Protonix -) 40 mg PO DAILY [facility] Last Admin: 08/19/16 10:58 Dose: 40 mg Polyethylene Glycol (Miralax (For Daily Use) -) 17 gm PO DAILY [facility] Last Admin: 08/19/16 11:01 Dose: Not Given A/P 80 year old Gentleman with PMhx of CVA/TIA, CKD (baseline Cr 1.6), Hypertension presented with AMS/Fall s/p revent CVA. #ANSELMO/CKD Renal function stable this is likely his baseline kidney function liseth follow up as outpatient avoid nsaids and nephrotoxins #Hypernatremia encouraged oral hydration via thickened liquids repeat BMP as outpatient #Recent CVA/Agitation MRI w/o any new acute infarcts Neurology and Psych following standing haldol as per Psych #Hypertension BP is at goal on Atenolol Thank you Lee Ramirez DO
[2016-08-19] MEDS: ATORVASTATIN CA 20 MG TABLET (FP) PO SCH (21:01)
--- NOTE | 2016-08-20 09:14 | DS ---
Physical Examination Vital Signs: Vital Signs Temperature 97.8 F 08/20/16 06:00 Pulse Rate 52 L 08/20/16 06:00 Respiratory Rate 20 08/20/16 06:00 Blood Pressure 128/85 08/20/16 06:00 O2 Sat by Pulse Oximetry (%) 96 08/19/16 21:00 Cardiovascular: Yes: Regular Rate and Rhythm Respiratory: Yes: Regular, CTA Bilaterally Gastrointestinal: Yes: Normal Bowel Sounds, Soft Labs: CBC, BMP 08/18/16 06:30 08/18/16 06:30 Discharge Summary Reason For Visit: AMS SINUSITIS Current Active Problems Altered mental status (Acute) Chronic kidney disease (CKD) (Acute) Hallucination, visual (Acute) Sinusitis (Acute) Hospital Course: (1) Altered mental status Assessment/Plan: psych saw patient family has filed an appeal for discharge family very involved psych rx changed to family requested doses -> resistant to dc Code(s): R41.82 - ALTERED MENTAL STATUS, UNSPECIFIED Qualifiers: Altered mental status type: disorientation Qualified Code(s): R41.0 - Disorientation, unspecified (2) Abnormal chest x-ray Assessment/Plan: pulm eval no contraindication for discharge can get outpatient cxr if he his respiratory status worsens Code(s): R93.8 - ABNORMAL FINDINGS ON DIAGNOSTIC IMAGING OF BODY STRUCTURES (3) Hallucination, visual Assessment/Plan: d/w dr momin will monitor for aggressive behavior MRI noted chronic infarcts noted no new acute pathology Code(s): R44.1 - VISUAL HALLUCINATIONS (4) Sinusitis Assessment/Plan: chronic on ct scan Code(s): J32.9 - CHRONIC SINUSITIS, UNSPECIFIED Qualifiers: Sinusitis location: maxillary Chronicity: chronic Qualified Code(s) : J32.0 - Chronic maxillary sinusitis (5) Acute renal insufficiency Assessment/Plan: improving renal eval noted has baseline cr 1.5-1.7 renal and bladder ultrasound noted no acute pathology, normal kindey and bladder Code(s): N28.9 - DISORDER OF KIDNEY AND URETER, UNSPECIFIED Condition: Stable - Instructions Diet, Activity, Other Instructions: hydroxyurea on ,,and thursday 500mg po daily Referrals: Jose De Leon MD [Primary Care Provider] - Disposition: [facility]ILITY - Home Medications Comprehensive Discharge Medication List: Ambulatory Orders Allopurinol [Zyloprim -] 300 mg PO DAILY 09/24/14 Atorvastatin Ca [Lipitor] 20 mg PO HS 09/24/14 Pantoprazole Sodium [Protonix -] 40 mg PO DAILY #14 tablet.ec 07/22/16 Aspirin [ASA -] 81 mg PO DAILY 08/02/16 Atenolol [Tenormin] 50 mg PO DAILY 08/02/16 Fluoxetine HCl Liquid [Prozac 20mg/5mL Oral Solution -] 60 mg PO DAILY 08/02/16 Hydroxyurea [Hydrea 500Mg Capsule -] 500 mg PO TuThSa capsule 08/12/16 Acetaminophen [Tylenol .Regular Strength -] 650 mg PO Q6H PRN #0 tablet Albuterol 0.083% Nebulizer Nohemi [Ventolin 0.083% Nebulizer Soln -] 1 amp NEB Q6H PRN #0 amp 08/16/16 Alprazolam [Xanax] 1 mg PO BID PRN #60 tablet MDD 2 08/16/16 Haloperidol [Haldol -] 2.5 mg PO BID tablet 08/16/16 Heparin - 5,000 unit SQ BID vial 08/16/16 Polyethylene Glycol 3350 [Miralax 119 gm Btl -] 17 gm PO DAILY bottle 08/16/16
[2016-08-20] MEDS: ALLOPURINOL 300 MG TABLET (FP) PO SCH (10:01)
[2016-08-20] MEDS: ATENOLOL 50 MG TABLET (FP) PO SCH (10:01)
[2016-08-20] MEDS: PANTOPRAZOLE 40 MG TABLET (FP) PO SCH (10:02)
[2016-08-20] MEDS: HALOPERIDOL 1 MG TABLET (FP) PO SCH ×2 (10:02→22:45)
[2016-08-20] MEDS: FLUoxetine HCL 20 MG CAPSULE (FP) PO SCH (10:02)
[2016-08-20] MEDS: ASPIRIN 81 MG CHEWABLE TABLETS PO SCH (10:02)
[2016-08-20] MEDS: POLYETHYLENE GLYCOL 3350 119 GM BTL PO SCH (10:02)
[2016-08-20] MEDS: HEPARIN NA (PORCINE) 5,000 UNITS/ML 1ML VIAL SQ SCH ×2 (10:03→21:04)
--- NOTE | 2016-08-20 10:52 | PN ---
Progress Note, [employer] - Note Progress Note: Selected Entries 08/19/16 08/19/16 08/19/16 06:00 10:00 13:32 Breakfast Lunch 50% Supper Temperature 97.8 F 97.9 F 08/19/16 08/20/16 08/20/16 22:35 06:00 09:58 Breakfast 50% Lunch Supper 50% Temperature 98.1 F 97.8 F Confusion persists. Tolerating diet fairly well with assistance. Pending transfer to [place].
--- NOTE | 2016-08-20 12:05 | PN ---
Progress Note (short form) - Note Progress Note: PULMONARY APPEARS STABLE LESS CONFUSED VSS/AFEBRILE ANICTERIC CHEST CLEAR B/L S1S2 BS+ SOFT NO EDEMA LABS/MEDS/NOTES/IMAGING REVIEWED Altered Mental Status/Dementia Atelectasis h/o CVA HTN Acute on Chronic Renal Failure improved - aspiration precautions - incentive spirometry - DVT prophylaxis - d/c planning Micah MCCORMICK MD
[2016-08-20] MEDS: ALPRAZolam 2 MG TABLET PO PRN (15:33)
--- NOTE | 2016-08-20 16:35 | PN ---
Progress Note (short form) - Note Progress Note: Renal Follow up for ANSELMO/CKD Pt seen and examined at the bedside no acute complaints today Vital Signs Temperature 97.8 F 08/20/16 13:01 Pulse Rate 66 08/20/16 13:01 Respiratory Rate 20 08/20/16 13:01 Blood Pressure 126/85 08/20/16 13:01 O2 Sat by Pulse Oximetry (%) 96 08/19/16 21:00 Intake & Output 08/17/16 08/18/16 08/19/16 08/20/16 23:59 23:59 23:59 23:59 Intake Total 100 420 400 600 Output Total 250 Balance 100 170 400 600 Gen: NAD CVS: RRR, No M/R Lungs: CTA, dec BS lung bases Abd: soft NT/ND Ext: No edema, clubbing or cyanosis : No bladder distension CBC, BMP 08/18/16 06:30 08/18/16 06:30 Current Medications Acetaminophen (Tylenol -) 650 mg PO Q4H PRN PRN Reason: FEVER OR PAIN Last Admin: 08/15/16 18:11 Dose: 650 mg Albuterol Sulfate (Ventolin 0.083% Nebulizer Soln -) 1 amp NEB Q6H PRN PRN Reason: SHORT OF BREATH/WHEEZING Last Admin: 08/15/16 00:00 Dose: 1 amp Allopurinol (Zyloprim -) 300 mg PO DAILY [facility] Last Admin: 08/20/16 10:01 Dose: 300 mg Alprazolam (Xanax -) 1 mg PO Q12H PRN Last Admin: 08/20/16 15:33 Dose: 1 mg Aspirin (Asa -) 81 mg PO DAILY [facility] Last Admin: 08/20/16 10:02 Dose: 81 mg Atenolol (Tenormin -) 50 mg PO DAILY [facility] Last Admin: 08/20/16 10:01 Dose: 50 mg Atorvastatin Calcium (Lipitor -) 20 mg PO HS [facility] Last Admin: 08/19/16 21:01 Dose: 20 mg Fluoxetine HCl (Prozac -) 60 mg PO DAILY [facility] Last Admin: 08/20/16 10:02 Dose: 60 mg Haloperidol (Haldol -) 1 mg PO BID [facility] Last Admin: 08/20/16 10:02 Dose: 1 mg Heparin Sodium (Porcine) (Heparin -) 5,000 unit SQ BID [facility] Last Admin: 08/20/16 10:03 Dose: 5,000 unit Hydroxyurea (Hydrea -) 500 mg PO TuThSa [facility] Last Admin: 08/19/16 10:58 Dose: 500 mg Pantoprazole Sodium (Protonix -) 40 mg PO DAILY [facility] Last Admin: 08/20/16 10:02 Dose: 40 mg Polyethylene Glycol (Miralax (For Daily Use) -) 17 gm PO DAILY [facility] Last Admin: 08/20/16 10:02 Dose: Not Given A/P 80 year old Gentleman with PMhx of CVA/TIA, CKD (baseline Cr 1.6), Hypertension presented with AMS/Fall s/p revent CVA. #ANSELMO/CKD Renal function stable oral hydration as tolerated if Cr remains stable as outpatient would consider starting BARRY/ARB Follow up in 1 month #Hypernatremia encouraged oral hydration via thickened liquids repeat BMP as outpatient #Recent CVA/Agitation MRI w/o any new acute infarcts Neurology and Psych following standing haldol as per Psych #Hypertension BP is at goal on Atenolol Thank you Lee Ramirez DO
[2016-08-20] MEDS ORDERED: PT OWN MED DRAWER 7, Y5N ONE (21:02)
[2016-08-20] MEDS: ATORVASTATIN CA 20 MG TABLET (FP) PO SCH (21:04)
[2016-08-21] MEDS: ALPRAZolam 2 MG TABLET PO PRN (11:00)
[2016-08-21] MEDS: ATENOLOL 50 MG TABLET (FP) PO SCH (11:00)
[2016-08-21] MEDS: ALLOPURINOL 300 MG TABLET (FP) PO SCH (11:00)
[2016-08-21] MEDS: PANTOPRAZOLE 40 MG TABLET (FP) PO SCH (11:00)
[2016-08-21] MEDS: ASPIRIN 81 MG CHEWABLE TABLETS PO SCH (11:00)
[2016-08-21] MEDS: HEPARIN NA (PORCINE) 5,000 UNITS/ML 1ML VIAL SQ SCH (11:01)
[2016-08-21] MEDS: FLUoxetine HCL 20 MG CAPSULE (FP) PO SCH (11:02)
[2016-08-21] MEDS: HALOPERIDOL 1 MG TABLET (FP) PO SCH ×2 (11:02→21:16)
[2016-08-21] MEDS: HYDROXYUREA 500 MG CAPSULE PO SCH (11:02)
[2016-08-21] MEDS: POLYETHYLENE GLYCOL 3350 119 GM BTL PO SCH (11:03)
--- NOTE | 2016-08-21 11:58 | PN ---
Progress Note (short form) - Note Progress Note: Renal Follow up for ANSELMO/CKD Pt seen and examined at the bedside no acute complaints awaiting discharge Vital Signs Temperature 98.0 F 08/21/16 05:44 Pulse Rate 60 08/21/16 05:44 Respiratory Rate 20 08/21/16 05:44 Blood Pressure 136/82 08/21/16 05:44 O2 Sat by Pulse Oximetry (%) 96 08/20/16 20:04 Intake & Output 08/18/16 08/19/16 08/20/16 08/21/16 23:59 23:59 23:59 23:59 Intake Total 420 400 800 Output Total 250 Balance 170 400 800 Gen: NAD CVS: RRR, No M/R Lungs: CTA, dec BS lung bases Abd: soft NT/ND Ext: No edema, clubbing or cyanosis : No bladder distension CBC, BMP 08/18/16 06:30 08/18/16 06:30 Current Medications Acetaminophen (Tylenol -) 650 mg PO Q4H PRN PRN Reason: FEVER OR PAIN Last Admin: 08/15/16 18:11 Dose: 650 mg Albuterol Sulfate (Ventolin 0.083% Nebulizer Soln -) 1 amp NEB Q6H PRN PRN Reason: SHORT OF BREATH/WHEEZING Last Admin: 08/15/16 00:00 Dose: 1 amp Allopurinol (Zyloprim -) 300 mg PO DAILY [facility] Last Admin: 08/21/16 11:00 Dose: 300 mg Alprazolam (Xanax -) 1 mg PO Q12H PRN Last Admin: 08/21/16 11:00 Dose: 1 mg Aspirin (Asa -) 81 mg PO DAILY [facility] Last Admin: 08/21/16 11:00 Dose: 81 mg Atenolol (Tenormin -) 50 mg PO DAILY [facility] Last Admin: 08/21/16 11:00 Dose: 50 mg Atorvastatin Calcium (Lipitor -) 20 mg PO HS [facility] Last Admin: 08/20/16 21:04 Dose: 20 mg Fluoxetine HCl (Prozac -) 60 mg PO DAILY [facility] Last Admin: 08/21/16 11:02 Dose: 60 mg Haloperidol (Haldol -) 1 mg PO BID [facility] Last Admin: 08/21/16 11:02 Dose: 1 mg Heparin Sodium (Porcine) (Heparin -) 5,000 unit SQ BID [facility] Last Admin: 08/21/16 11:01 Dose: 5,000 unit Hydroxyurea (Hydrea -) 500 mg PO TuThSa [facility] Last Admin: 08/21/16 11:02 Dose: 500 mg Pantoprazole Sodium (Protonix -) 40 mg PO DAILY [facility] Last Admin: 08/21/16 11:00 Dose: 40 mg Polyethylene Glycol (Miralax (For Daily Use) -) 17 gm PO DAILY [facility] Last Admin: 08/21/16 11:03 Dose: Not Given A/P 80 year old Gentleman with PMhx of CVA/TIA, CKD (baseline Cr 1.6), Hypertension presented with AMS/Fall s/p revent CVA. #ANSELMO/CKD Renal function stable Will need renal follow u as outpatient #Hypernatremia oral hydration with thickend liquids #Recent CVA/Agitation MRI w/o any new acute infarcts Neurology and Psych following standing haldol as per Psych #Hypertension BP is at goal on Atenolol Thank you Lee Ramirez DO
--- NOTE | 2016-08-21 12:48 | PN ---
Progress Note (short form) - Note Progress Note: PULMONARY APPEARS STABLE/ CONFUSED VSS/AFEBRILE ANICTERIC CHEST CLEAR B/L S1S2 BS+ SOFT NO EDEMA LABS/MEDS/NOTES/IMAGING REVIEWED Altered Mental Status/Dementia Atelectasis h/o CVA HTN Acute on Chronic Renal Failure improved - aspiration precautions - incentive spirometry - DVT prophylaxis - d/c planning Micah MCCORMICK MD
--- NOTE | 2016-08-21 15:57 | DS ---
Physical Examination Vital Signs: Vital Signs Temperature 98.0 F 08/21/16 05:44 Pulse Rate 76 08/21/16 10:00 Respiratory Rate 22 08/21/16 10:00 Blood Pressure 138/78 08/21/16 10:00 O2 Sat by Pulse Oximetry (%) 96 08/21/16 09:00 Cardiovascular: Yes: Regular Rate and Rhythm Respiratory: Yes: Regular, CTA Bilaterally Gastrointestinal: Yes: Normal Bowel Sounds, Soft Neurological: Yes: Pre-Existing Deficit Labs: CBC, BMP 08/18/16 06:30 08/18/16 06:30 Discharge Summary Reason For Visit: AMS SINUSITIS Current Active Problems Altered mental status (Acute) Chronic kidney disease (CKD) (Acute) Hallucination, visual (Acute) Sinusitis (Acute) Hospital Course: Hospital Course: (1) Altered mental status Assessment/Plan: psych saw patient family has filed an appeal for discharge family very involved psych rx changed to family requested doses -> resistant to dc Code(s): R41.82 - ALTERED MENTAL STATUS, UNSPECIFIED Qualifiers: Altered mental status type: disorientation Qualified Code(s): R41.0 - Disorientation, unspecified (2) Abnormal chest x-ray Assessment/Plan: pulm eval no contraindication for discharge can get outpatient cxr if he his respiratory status worsens Code(s): R93.8 - ABNORMAL FINDINGS ON DIAGNOSTIC IMAGING OF BODY STRUCTURES (3) Hallucination, visual Assessment/Plan: d/w dr momin will monitor for aggressive behavior MRI noted chronic infarcts noted no new acute pathology Code(s): R44.1 - VISUAL HALLUCINATIONS (4) Sinusitis Assessment/Plan: chronic on ct scan Code(s): J32.9 - CHRONIC SINUSITIS, UNSPECIFIED Qualifiers: Sinusitis location: maxillary Chronicity: chronic Qualified Code(s) : J32.0 - Chronic maxillary sinusitis (5) Acute renal insufficiency Assessment/Plan: improving renal eval noted has baseline cr 1.5-1.7 renal and bladder ultrasound noted no acute pathology, normal kindey and bladder Code(s): N28.9 - DISORDER OF KIDNEY AND URETER, UNSPECIFIED Condition: Stable - Instructions Diet, Activity, Other Instructions: hydroxyurea on ,,and thursday 500mg po daily Referrals: Jose De Leon MD [Primary Care Provider] - Disposition: [facility]IDENTIAL FACILITY - Home Medications Comprehensive Discharge Medication List: Ambulatory Orders Allopurinol [Zyloprim -] 300 mg PO DAILY 09/24/14 Atorvastatin Ca [Lipitor] 20 mg PO HS 09/24/14 Pantoprazole Sodium [Protonix -] 40 mg PO DAILY #14 tablet.ec 07/22/16 Aspirin [ASA -] 81 mg PO DAILY 08/02/16 Atenolol [Tenormin] 50 mg PO DAILY 08/02/16 Fluoxetine HCl Liquid [Prozac 20mg/5mL Oral Solution -] 60 mg PO DAILY 08/02/16 Hydroxyurea [Hydrea 500Mg Capsule -] 500 mg PO TuThSa capsule 08/12/16 Acetaminophen [Tylenol .Regular Strength -] 650 mg PO Q6H PRN #0 tablet Albuterol 0.083% Nebulizer Nohemi [Ventolin 0.083% Nebulizer Soln -] 1 amp NEB Q6H PRN #0 amp 08/16/16 Alprazolam [Xanax] 1 mg PO BID PRN #60 tablet MDD 2 08/16/16 Haloperidol [Haldol -] 2.5 mg PO BID tablet 08/16/16 Heparin - 5,000 unit SQ BID vial 08/16/16 Polyethylene Glycol 3350 [Miralax 119 gm Btl -] 17 gm PO DAILY bottle 08/16/16
[2016-08-21] MEDS ORDERED: PT OWN MED DRAWER 7, Y5N ONE (20:59)
[2016-08-21] MEDS: ATORVASTATIN CA 20 MG TABLET (FP) PO SCH (21:16)
[2016-08-22] MEDS ORDERED: PT OWN MED DRAWER 7, Y5N ONE (10:17)
[2016-08-22] MEDS: FLUoxetine HCL 20 MG CAPSULE (FP) PO SCH (10:23)
[2016-08-22] MEDS: HALOPERIDOL 1 MG TABLET (FP) PO SCH (10:23)
[2016-08-22] MEDS: ATENOLOL 50 MG TABLET (FP) PO SCH (10:23)
[2016-08-22] MEDS: POLYETHYLENE GLYCOL 3350 119 GM BTL PO SCH (10:23)
[2016-08-22] MEDS: ALLOPURINOL 300 MG TABLET (FP) PO SCH (10:23)
[2016-08-22] MEDS: PANTOPRAZOLE 40 MG TABLET (FP) PO SCH (10:23)
[2016-08-22] MEDS: ASPIRIN 81 MG CHEWABLE TABLETS PO SCH (10:23)
--- NOTE | 2016-08-22 10:37 | DS ---
Physical Examination Vital Signs: Vital Signs Temperature 97.3 F L 08/21/16 21:53 Pulse Rate 59 L 08/21/16 21:53 Respiratory Rate 20 08/21/16 21:53 Blood Pressure 156/77 08/21/16 21:53 O2 Sat by Pulse Oximetry (%) 96 08/21/16 20:21 Findings/Remarks: IN BED NAD NO COMPLAINTS Cardiovascular: Yes: Regular Rate and Rhythm Respiratory: Yes: Regular, CTA Bilaterally Gastrointestinal: Yes: Normal Bowel Sounds, Soft Labs: CBC, BMP 08/18/16 06:30 08/18/16 06:30 Discharge Summary Reason For Visit: AMS SINUSITIS Current Active Problems Altered mental status (Acute) Chronic kidney disease (CKD) (Acute) Hallucination, visual (Acute) Sinusitis (Acute) Hospital Course: (1) Altered mental status Assessment/Plan: psych saw patient family has filed an appeal for discharge family very involved psych rx changed to family requested doses -> resistant to dc Code(s): R41.82 - ALTERED MENTAL STATUS, UNSPECIFIED Qualifiers: Altered mental status type: disorientation Qualified Code(s): R41.0 - Disorientation, unspecified (2) Abnormal chest x-ray Assessment/Plan: pulm eval no contraindication for discharge can get outpatient cxr if he his respiratory status worsens Code(s): R93.8 - ABNORMAL FINDINGS ON DIAGNOSTIC IMAGING OF BODY STRUCTURES (3) Hallucination, visual Assessment/Plan: d/w dr momin will monitor for aggressive behavior MRI noted chronic infarcts noted no new acute pathology Code(s): R44.1 - VISUAL HALLUCINATIONS (4) Sinusitis Assessment/Plan: chronic on ct scan Code(s): J32.9 - CHRONIC SINUSITIS, UNSPECIFIED Qualifiers: Sinusitis location: maxillary Chronicity: chronic Qualified Code(s) : J32.0 - Chronic maxillary sinusitis (5) Acute renal insufficiency Assessment/Plan: improving renal eval noted has baseline cr 1.5-1.7 renal and bladder ultrasound noted no acute pathology, normal kindey and bladder Code(s): N28.9 - DISORDER OF KIDNEY AND URETER, UNSPECIFIED Condition: Stable Condition: Stable - Instructions Diet, Activity, Other Instructions: hydroxyurea on ,,and thursday 500mg po daily Referrals: Jose De Leon MD [Primary Care Provider] - Disposition: [facility] FACILITY - Home Medications Comprehensive Discharge Medication List: Ambulatory Orders Allopurinol [Zyloprim -] 300 mg PO DAILY 09/24/14 Atorvastatin Ca [Lipitor] 20 mg PO HS 09/24/14 Pantoprazole Sodium [Protonix -] 40 mg PO DAILY #14 tablet.ec 07/22/16 Aspirin [ASA -] 81 mg PO DAILY 08/02/16 Atenolol [Tenormin] 50 mg PO DAILY 08/02/16 Fluoxetine HCl Liquid [Prozac 20mg/5mL Oral Solution -] 60 mg PO DAILY 08/02/16 Hydroxyurea [Hydrea 500Mg Capsule -] 500 mg PO TuThSa capsule 08/12/16 Acetaminophen [Tylenol .Regular Strength -] 650 mg PO Q6H PRN #0 tablet Albuterol 0.083% Nebulizer Nohemi [Ventolin 0.083% Nebulizer Soln -] 1 amp NEB Q6H PRN #0 amp 08/16/16 Alprazolam [Xanax] 1 mg PO BID PRN #60 tablet MDD 2 08/16/16 Haloperidol [Haldol -] 2.5 mg PO BID tablet 08/16/16 Heparin - 5,000 unit SQ BID vial 08/16/16 Polyethylene Glycol 3350 [Miralax 119 gm Btl -] 17 gm PO DAILY bottle 08/16/16
[2016-08-22 11:26] VITALS: BP 164/91; PULSE 56; TEMP 98
--- NOTE | 2016-08-22 12:50 | PN ---
Progress Note (short form) - Note Progress Note: Renal Follow up for ANSELMO/CKD Pt seen and examined at the bedside no complaints awaiting discharge Vital Signs Temperature 98.0 F 08/22/16 08:00 Pulse Rate 56 L 08/22/16 08:00 Respiratory Rate 20 08/22/16 08:00 Blood Pressure 164/91 08/22/16 08:00 O2 Sat by Pulse Oximetry (%) 95 08/22/16 08:00 Intake & Output 08/19/16 08/20/16 08/21/16 08/22/16 23:59 23:59 23:59 23:59 Intake Total 400 800 200 Balance 400 800 200 Gen: NAD CVS: RRR, No M/R Lungs: CTA, dec BS lung bases Abd: soft NT/ND Ext: No edema, clubbing or cyanosis : No bladder distension CBC, BMP 08/18/16 06:30 08/18/16 06:30 Current Medications Acetaminophen (Tylenol -) 650 mg PO Q4H PRN PRN Reason: FEVER OR PAIN Last Admin: 08/15/16 18:11 Dose: 650 mg Albuterol Sulfate (Ventolin 0.083% Nebulizer Soln -) 1 amp NEB Q6H PRN PRN Reason: SHORT OF BREATH/WHEEZING Last Admin: 08/15/16 00:00 Dose: 1 amp Allopurinol (Zyloprim -) 300 mg PO DAILY [facility] Last Admin: 08/22/16 10:23 Dose: 300 mg Aspirin (Asa -) 81 mg PO DAILY [facility] Last Admin: 08/22/16 10:23 Dose: 81 mg Atenolol (Tenormin -) 50 mg PO DAILY [facility] Last Admin: 08/22/16 10:23 Dose: 50 mg Atorvastatin Calcium (Lipitor -) 20 mg PO HS [facility] Last Admin: 08/21/16 21:16 Dose: 20 mg Fluoxetine HCl (Prozac -) 60 mg PO DAILY [facility] Last Admin: 08/22/16 10:23 Dose: 60 mg Haloperidol (Haldol -) 1 mg PO BID [facility] Last Admin: 08/22/16 10:23 Dose: 1 mg Hydroxyurea (Hydrea -) 500 mg PO TuThSa [facility] Last Admin: 08/21/16 11:02 Dose: 500 mg Pantoprazole Sodium (Protonix -) 40 mg PO DAILY [facility] Last Admin: 08/22/16 10:23 Dose: 40 mg Polyethylene Glycol (Miralax (For Daily Use) -) 17 gm PO DAILY [facility] Last Admin: 08/22/16 10:23 Dose: 17 gm A/P 80 year old Gentleman with PMhx of CVA/TIA, CKD (baseline Cr 1.6), Hypertension presented with AMS/Fall s/p revent CVA. #ANSELMO/CKD Stable renal function outpatient follow up #Hypernatremia oral hydration as tolerated #Recent CVA/Agitation MRI w/o any new acute infarcts Neurology and Psych following #Hypertension elevated this am before getting meds BP is at goal on Atenolol low salt diet Thank you Lee Ramirez DO
[2016-08-22] MEDS ORDERED: ALPRAZolam 2 MG TABLET PO SCH (13:30)
== END 2016-08-22 15:36 | DRG 71 ==
LOC: JER 23:23 → JERBED 08-08 06:17 → UNDOADMIN 08-08 06:19 → JERBED 08-08 06:19 → J6S 08-08 18:20
PROVIDERS: ADMIT Family Medicine; ATTEND Family Medicine
DX: G93.41 Metabolic encephalopathy (principal); N17.9 Acute kidney failure, unspecified; E87.0 Hyperosmolality and hypernatremia; J98.11 Atelectasis; E78.5 Hyperlipidemia, unspecified; M10.9 Gout, unspecified; F41.9 Anxiety disorder, unspecified; F32.9 Major depressive disorder, single episode, unspecified; J32.0 Chronic maxillary sinusitis; R44.1 Visual hallucinations; Z88.0 Allergy status to penicillin; Z87.891 Personal history of nicotine dependence; R41.0 Disorientation, unspecified; I69.320 Aphasia following cerebral infarction; F03.90 Unspecified dementia, unspecified severity, without behavioral disturbance, psychotic disturbance, mood disturbance, and anxiety; K21.9 Gastro-esophageal reflux disease without esophagitis; I12.9 Hypertensive chronic kidney disease with stage 1 through stage 4 chronic kidney disease, or unspecified chronic kidney disease; N18.9 Chronic kidney disease, unspecified; E66.9 Obesity, unspecified; Z68.33 Body mass index [BMI] 33.0-33.9, adult; R29.6 Repeated falls
CPT/HCPCS: 36415; 70450-TC; 70551-TC; 71010-TC; 74230-TC; 76775-TC; 76856-TC; 80053; 81003; 81015; 82140; 82550; 82553; 84484; 85025; 87040; 92611-GN; 93005; 93010; 94640; 94761; 97116-GP; 97162-PG; 99281-25; J1644; J8999

== ENCOUNTER 2016-12-25 23:15 | Inpatient (IN) | payer OTHER, BC ==
[2016-12-26] MEDS ORDERED: ACETAMINOPHEN INJECTION 100 ML IVPB ONE (00:12)
[2016-12-26 00:25] LABS: BASOPHIL 0.4 % (0-2.0); EOSINOPHIL 1.4 % (0-4.5); MCH 32.6 pg (25.7-33.7); MCHC 32.6 g/dl (32.0-35.9); MEAN CELL VOLUME 99.9 fl (80-96); MEAN PLT VOLUME 8.4 fl (7.5-11.1); NEUTROPHILS 84.4 % (42.8-82.8); PLATELET COUNT 351 K/MM3 (134-434); RDW 16.8 % (11.9-15.9); WHITE BLOOD COUNT 17.4 K/mm3 (4.0-10.0)
[2016-12-26 00:31] LABS: URINE APPEARANCE CLEAR; URINE BILIRUBIN NEGATIVE (NEGATIVE); URINE BLOOD NEGATIVE (NEGATIVE); URINE COLOR YELLOW; URINE GLUCOSE (UA) NEGATIVE (NEGATIVE); URINE KETONE NEGATIVE (NEGATIVE); URINE LEUK ESTERASE NEGATIVE (NEGATIVE); URINE NITRITE NEGATIVE (NEGATIVE); URINE PROTEIN NEGATIVE (NEGATIVE); URINE UROBILINOGEN NEGATIVE E.U./dl (0.2-1.0)
[2016-12-26 00:36] LABS: INR 1.21 (0.82-1.09); PROTHROMBIN TIME (PATIENT) 13.4 SEC (9.98-11.88)
[2016-12-26 00:48] LABS: ALBUMIN 3.3 g/dl (3.4-5.0); ANION GAP 11 (8-16); CALCIUM 9.1 mg/dL (8.5-10.1); CO2 25 mmol/L (21-32); GLUCOSE,RANDOM 160 mg/dL (74-106)
[2016-12-26 00:53] LABS: ALK PHOS 76 U/L (45-117); BILIRUBIN,TOTAL 0.5 mg/dL (0.2-1.0); CREATININE 1.3 mg/dL (0.7-1.3); SGOT/AST 23 U/L (15-37); SGPT/ALT 20 U/L (12-78); TOT PROT 7.3 g/dl (6.4-8.2); TROPONIN I 0.02 ng/ml (0.00-0.05)
[2016-12-26] MEDS ORDERED: LEVOFLOXACIN 750 MG IVPB 150 ML IVPB ONE ×2 (01:06→01:08)
[2016-12-26] MEDS ORDERED: METRONIDAZOLE 500 MG PREMIXED 100 ML IVPB ONE (01:17)
--- NOTE | 2016-12-26 01:19 | PDOC ---
History of Present Illness - History of Present Illness Initial Comments: 12/26/16 01:26 Patient is a 81 year old male with significant medical hx of HTN, HLD, CVA, TIA x 2, essential thrombocytosis and GI bleed who is presenting to the ED with one day of fever, lethargy and cough. Patient is unable to provide history and history was given by family members. reports the patient had a low grade oral temp today of 99.9. He also had a dry, non-productive cough and has been more lethargic than usual. notes that the patient had high blood pressure today; she remembers that his diastolic went as high as 115 but does not remember the systolic pressure. The patient is non-ambulatory at baseline, he goes between the bed and the wheelchair. states that the patient can answer questions verbally but very minimal, he often is able to respond with body language. The patient is noted to follow commands on interview. Allergies: Penicillins Past Surgical History: None reported. Social History: Non-smoker. Denies alcohol or drug use. PCP: Manuel Galloway MD <Annika Hernandez - Last Filed: 12/26/16 01:25> - General History Source: Family Exam Limitations: Clinical Condition <Bobby Smith - Last Filed: 12/26/16 02:18> - General Chief Complaint: Altered Mental Status Stated Complaint: POSSIBLE STROKE Time Seen by Provider: 12/26/16 00:01 Past History <Annika Hernandez - Last Filed: 12/26/16 01:25> - Past Medical History Anemia: No Asthma: No Cancer: No Cardiac Disorders: No CVA: Yes (TIA X2, Ataxia) COPD: No CHF: No Dementia: No Diabetes: No GI Disorders: Yes (GI bleed) Disorders: No HTN: Yes Hypercholesterolemia: Yes Liver Disease: No Psychiatric Problems: Yes (AXIETY, DEPRESSION) Seizures: No Thyroid Disease: No - Surgical History Abdominal Surgery: No Appendectomy: No Cardiac Surgery: No Cholecystectomy: No Lung Surgery: No Neurologic Surgery: No Orthopedic Surgery: No - Immunization History Immunization Up to Date: Yes - Psycho/Social/Smoking Cessation Hx Anxiety: No Suicidal Ideation: No Smoking Status: No Smoking History: Unknown if ever smoked Have you smoked in the past 12 months: No Number of Cigarettes Smoked Daily: 0 Information on smoking cessation initiated: No Hx Alcohol Use: No Drug/Substance Use Hx: No Substance Use Type: None Hx Substance Use Treatment: No <Bobby Smith - Last Filed: 12/26/16 02:18> - Past Medical History Allergies/Adverse Reactions: Allergies Allergy/AdvReac Type Severity Reaction Status Date / Time Penicillins Allergy Mild Nausea Verified 12/25/16 23:48 Home Medications: Ambulatory Orders Allopurinol [Zyloprim -] 300 mg PO DAILY 09/24/14 Atorvastatin Ca [Lipitor] 20 mg PO HS 09/24/14 Pantoprazole Sodium [Protonix -] 40 mg PO DAILY #14 tablet.ec 07/22/16 Aspirin [ASA -] 81 mg PO DAILY 08/02/16 Atenolol [Tenormin] 50 mg PO DAILY 08/02/16 Fluoxetine HCl Liquid [Prozac 20mg/5mL Oral Solution -] 60 mg PO DAILY 08/02/16 Hydroxyurea [Hydrea 500Mg Capsule -] 500 mg PO TuThSa capsule 08/12/16 Acetaminophen [Tylenol .Regular Strength -] 650 mg PO Q6H PRN #0 tablet Albuterol 0.083% Nebulizer Nohemi [Ventolin 0.083% Nebulizer Soln -] 1 amp NEB Q6H PRN #0 amp 08/16/16 Alprazolam [Xanax] 1 mg PO BID PRN #60 tablet MDD 2 08/16/16 Haloperidol [Haldol -] 2.5 mg PO BID tablet 08/16/16 Heparin - 5,000 unit SQ BID vial 08/16/16 Polyethylene Glycol 3350 [Miralax 119 gm Btl -] 17 gm PO DAILY bottle 08/16/16 Review of Systems - Review of Systems Comments:: 12/26/16 01:26 CONSTITUTIONAL: Lethargy, fever. No chills EYES: No visual changes ENT: No ear pain, no sore throat CARDIOVASCULAR: No chest pain, no palpitations RESPIRATORY: Cough. No SOB GI: No abdominal pain, no nausea, no vomiting, no constipation, no diarrhea GENITOURINARY: No dysuria, no frequency, no hematuria MUSKULOSKELETAL: No backpain, no joint pain, no myalgias SKIN: No rash NEURO: No headache <Annika Hernandez - Last Filed: 12/26/16 01:25> *Physical Exam - Vital Signs Last Vital Signs Temp Pulse Resp BP Pulse Ox 101.8 F H 64 16 123/62 96 12/25/16 23:48 12/25/16 23:48 12/25/16 23:48 12/25/16 23:48 12/25/16 23:48 <MaryAnnika - Last Filed: 12/26/16 01:25> - Vital Signs Last Vital Signs Temp Pulse Resp BP Pulse Ox 101.8 F H 64 16 123/62 96 12/25/16 23:48 12/25/16 23:48 12/25/16 23:48 12/25/16 23:48 12/25/16 23:48 - Physical Exam Comments: 12/26/16 02:13 EXAMINATION CONSTITUTIONAL: Lethargic, arousable to verbal stimuli; follows simple commands ; in no apparent distress HEAD: Normocephalic; atraumatic EYES: PERRL; conj-pink, no scleral icterus ENMT: External appears normal; mm-dry NECK: Supple; non-tender; no jvd CARD: Normal S1, S2; no murmurs, rubs, or gallops RESP:shallow chest excursion with respiration; breath sounds clear and equal bilaterally; no wheezes, rhonchi, or rales ABD: Soft, non-distended; non-tender; no palpable organomegaly, no palpable hernias EXT: no obvious deform; non-tender to palpation; distal pulses intact; gait- defferd SKIN: Warm, dry, no petechiae NEURO: lethargic, arousable to verbal stimuli; moving all extr; gait-deffered <Bobby Smith - Last Filed: 12/26/16 02:18> ED Treatment Course - LABORATORY CBC & Chemistry Diagram: 12/26/16 00:05 12/26/16 00:05 - ADDITIONAL ORDERS Additional order review: Laboratory Results 12/26/16 12/26/16 12/26/16 00:05 00:05 00:01 INR 1.21 H Sodium 140 Potassium 4.2 Chloride 104 Carbon Dioxide 25 Anion Gap 11 BUN 19 H D Creatinine 1.3 D Creat Clearance w eGFR 53.25 Random Glucose 160 H D Lactic Acid 2.5 H* Calcium 9.1 Total Bilirubin 0.5 D AST 23 ALT 20 Alkaline Phosphatase 76 D Creatine Kinase 39 Troponin I 0.02 D Total Protein 7.3 Albumin 3.3 L Urine Color Urine Appearance Urine pH Urine Protein Urine Glucose (UA) Urine Ketones Urine Blood Urine Nitrite Urine Bilirubin Urine Urobilinogen Ur Leukocyte Esterase 12/25/16 00:45 INR Sodium Potassium Chloride Carbon Dioxide Anion Gap BUN Creatinine Creat Clearance w eGFR Random Glucose Lactic Acid Calcium Total Bilirubin AST ALT Alkaline Phosphatase Creatine Kinase Troponin I Total Protein Albumin Urine Color Yellow Urine Appearance Clear Urine pH 5.0 Urine Protein Negative Urine Glucose (UA) Negative Urine Ketones Negative Urine Blood Negative Urine Nitrite Negative Urine Bilirubin Negative Urine Urobilinogen Negative Ur Leukocyte Esterase Negative 12/26/16 00:05 RBC 4.22 MCV 99.9 H MCHC 32.6 RDW 16.8 H MPV 8.4 Neutrophils % 84.4 H D Lymphocytes % 5.0 L D Monocytes % 8.8 Eosinophils % 1.4 D Basophils % 0.4 - RADIOLOGY Radiograph Interpretation: 12/26/16 01:[address] Impression: No evidence of acute intracranial pathology. Reported By: Maximino Ford MD <Annika Hernandez - Last Filed: 12/26/16 01:25> - LABORATORY CBC & Chemistry Diagram: 12/26/16 00:05 12/26/16 00:05 - ADDITIONAL ORDERS Additional order review: Laboratory Results 12/26/16 12/26/16 12/26/16 00:05 00:05 00:01 INR 1.21 H Sodium 140 Potassium 4.2 Chloride 104 Carbon Dioxide 25 Anion Gap 11 BUN 19 H D Creatinine 1.3 D Creat Clearance w eGFR 53.25 Random Glucose 160 H D Lactic Acid 2.5 H* Calcium 9.1 Total Bilirubin 0.5 D AST 23 ALT 20 Alkaline Phosphatase 76 D Creatine Kinase 39 Troponin I 0.02 D Total Protein 7.3 Albumin 3.3 L Urine Color Urine Appearance Urine pH Urine Protein Urine Glucose (UA) Urine Ketones Urine Blood Urine Nitrite Urine Bilirubin Urine Urobilinogen Ur Leukocyte Esterase 12/25/16 00:45 INR Sodium Potassium Chloride Carbon Dioxide Anion Gap BUN Creatinine Creat Clearance w eGFR Random Glucose Lactic Acid Calcium Total Bilirubin AST ALT Alkaline Phosphatase Creatine Kinase Troponin I Total Protein Albumin Urine Color Yellow Urine Appearance Clear Urine pH 5.0 Urine Protein Negative Urine Glucose (UA) Negative Urine Ketones Negative Urine Blood Negative Urine Nitrite Negative Urine Bilirubin Negative Urine Urobilinogen Negative Ur Leukocyte Esterase Negative 12/26/16 00:05 RBC 4.22 MCV 99.9 H MCHC 32.6 RDW 16.8 H MPV 8.4 Neutrophils % 84.4 H D Lymphocytes % 5.0 L D Monocytes % 8.8 Eosinophils % 1.4 D Basophils % 0.4 - RADIOLOGY Radiology Studies Ordered: Category Date Time Status HEAD CT (STROKE) [CT] Stat CT Scan 12/25/16 23:26 Completed CHEST X-RAY PORTABLE* [RAD] Stat Radiology 12/25/16 23:36 Taken <Bobby Smith - Last Filed: 12/26/16 02:18> Medical Decision Making - Medical Decision Making 12/26/16 02:17 Patient is a 81-year-old male with history of essential thrombocytosis, CVA is brought in by his family for decreased alertness, increased nonproductive cough and a low-grade fever. In the ER, patient is lethargic, easily arousable, follows simple commands. Patient is febrile to 101.8. CBC reveals significant leukocytosis with predominance of neutrophils. Chest x-ray reveals no evidence of obvious infiltrate. Urinalysis within normal limit. Lactic acid is minimally elevated. I suspect aspiration pneumonia in this patient with recurrent chronic aspiration. We will cover with Levaquin as patient is pen ALLERGIC as well as Flagyl for anaerobic coverage. Case discussed with Dr. Galloway. Agrees with plan of care. <Bobby Smith - Last Filed: 12/26/16 02:18> *DC/Admit/Observation/Transfer - Attestations Scribe Attestion: 12/26/16 01:27 Documentation prepared by Annika Hernandez, acting as medical insurance clerk for Bobby Smith MD. <Annika Hernandez - Last Filed: 12/26/16 01:25> - Discharge Dispostion Admit: Yes <Bobby Smith - Last Filed: 12/26/16 02:18> Diagnosis at time of Disposition: Pneumonia Qualifiers: Pneumonia type: aspiration pneumonia Aspiration pneumonia type: unspecified Laterality: unspecified laterality Lung location: unspecified part of lung Qualified Code(s): J69.0 - Pneumonitis due to inhalation of food and vomit Fever Qualifiers: Fever type: unspecified Qualified Code(s): R50.9 - Fever, unspecified - Referrals
[2016-12-26] MEDS ORDERED: ALPRAZolam 0.25 MG TABLET PO PRN ×2 (01:30→17:41)
[2016-12-26] MEDS: SODIUM CHLORIDE 1,000 ML IV SCH (02:18)
[2016-12-26] MEDS: METRONIDAZOLE 500 MG PREMIXED 100 ML IVPB SCH ×3 (02:18→17:39)
[2016-12-26] MEDS: ALBUTEROL SO4 2.5/IPRATROPIUM 0.5 INH SOL 3 ML VIAL.NEB. NEB SCH ×3 (05:54→22:52)
[2016-12-26 06:19] LABS: MCH 32.9 pg (25.7-33.7); MCHC 32.8 g/dl (32.0-35.9); MEAN CELL VOLUME 100.3 fl (80-96); MEAN PLT VOLUME 8.2 fl (7.5-11.1); PLATELET COUNT 335 K/MM3 (134-434); RDW 16.7 % (11.9-15.9); WHITE BLOOD COUNT 17.7 K/mm3 (4.0-10.0)
[2016-12-26 06:43] LABS: ANION GAP 7 (8-16); CALCIUM 8.4 mg/dL (8.5-10.1); CO2 27 mmol/L (21-32); CREATININE 1.1 mg/dL (0.7-1.3); GLUCOSE,RANDOM 100 mg/dL (74-106)
[2016-12-26] MEDS: ACETAMINOPHEN 650 MG/20.3 ML ORAL SOLUTION (CUPS) PO PRN (06:47)
--- NOTE | 2016-12-26 09:35 | EKG ---
Test Reason : Blood Pressure : / mmHG Vent. Rate : 063 BPM Atrial Rate : 063 BPM P-R Int : 198 ms QRS Dur : 094 ms QT Int : 416 ms P-R-T Axes : 030 -50 091 degrees QTc Int : 425 ms NORMAL SINUS RHYTHM LEFT ANTERIOR FASCICULAR BLOCK NONSPECIFIC ST ABNORMALITY ABNORMAL ECG Confirmed by COY HUNTLEY MD ([id number]) on 12/26/2016 9:35:12 AM Referred By: Confirmed By:OCY HUNTLEY MD
[2016-12-26] MEDS: FLUoxetine HCL 20 MG CAPSULE (FP) PO SCH (10:59)
[2016-12-26] MEDS: HYDROXYUREA 500 MG CAPSULE PO SCH (10:59)
[2016-12-26] MEDS: ASPIRIN COATED 81 MG TABLET.EC PO SCH (10:59)
[2016-12-26] MEDS: HEPARIN NA (PORCINE) 5,000 UNITS/ML 1ML VIAL SQ SCH ×2 (10:59→21:12)
[2016-12-26] MEDS: FAMOTIDINE 20 MG/50 ML IVPB 50 ML IVPB SCH (10:59)
[2016-12-26] MEDS: ATENOLOL 25 MG TABLET (FP) PO SCH (11:00)
[2016-12-26] MEDS ORDERED: PT OWN MED DRAWER 7, Y5N ONE (12:38)
[2016-12-26 13:54] VITALS: BMI 24.8
--- NOTE | 2016-12-26 15:22 | HP ---
Admitting History and Physical - Primary Care Physician PCP: Manuel Galloway - Admission Chief Complaint: weakness & cough History of Present Illness: Patient is a 81 year old home-bound male with significant medical hx of HTN, HLD , multiple CVA's with hx of depression and agitated Dementia, essential thrombocytosis and Hx of GI bleed who is presenting to the ED with one day of fever, lethargy and cough. 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 notes that the patient had high blood pressure on day of admission. The patient is non-ambulatory at baseline, he goes between the bed and the wheelchair. states that the patient can answer questions verbally but very minimal, he often is able to respond with body language. He c/o being "achy" and particularly in both shoulders; his cough is less today. He denied any N-v, diarrhea, abd or CP. There was no report of coughing during his food intake. 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 Cardiovascular: Yes: HTN, Hyperlipdemia Pulmonary: Yes: Asthma Gastrointestinal: Yes: GI Bleed (History of) Renal/: Yes: Renal Inusuff (mild) Heme/Onc: Yes: Other (thrombocytopenia) Infectious Disease: Yes: Other (UTI) Psych: Yes: Anxiety, Depression Musculoskeletal: Yes: Other (Gait dysfunction likely 2nd old CVA) - Smoking History Smoking history: Unknown if ever smoked Have you smoked in the past 12 months: No Aproximately how many cigarettes per day: 0 - Alcohol/Substance Use Hx Alcohol Use: No History of Substance Use: reports: None - Social History Usual Living Arrangement: Yes: With Spouse ADL: Family Assistance History of Recent Travel: No Home Medications - Allergies Allergies/Adverse Reactions: Allergies Allergy/AdvReac Type Severity Reaction Status Date / Time Penicillins Allergy Mild Nausea Verified 12/25/16 23:48 - Home Medications Home Medications: Ambulatory Orders Allopurinol [Zyloprim -] 300 mg PO DAILY 09/24/14 Atorvastatin Ca [Lipitor] 20 mg PO HS 09/24/14 Pantoprazole Sodium [Protonix -] 40 mg PO DAILY #14 tablet.ec 01/10/17 Aspirin [ASA -] 81 mg PO DAILY 08/02/16 Atenolol [Tenormin] 50 mg PO DAILY 08/02/16 Fluoxetine HCl Liquid [Prozac 20mg/5mL Oral Solution -] 60 mg PO DAILY 08/02/16 Hydroxyurea [Hydrea 500Mg Capsule -] 500 mg PO TuThSa capsule 08/12/16 Acetaminophen [Tylenol .Regular Strength -] 650 mg PO Q6H PRN #0 tablet Albuterol 0.083% Nebulizer Nohemi [Ventolin 0.083% Nebulizer Soln -] 1 amp NEB Q6H PRN #0 amp 08/16/16 Alprazolam [Xanax] 1 mg PO BID PRN #60 tablet MDD 2 08/16/16 Haloperidol [Haldol -] 2.5 mg PO BID tablet 08/16/16 Heparin - 5,000 unit SQ BID vial 08/16/16 Polyethylene Glycol 3350 [Miralax 119 gm Btl -] 17 gm PO DAILY bottle 08/16/16 Family Disease History - Family Disease History Family History: Unremarkable Family Disease History: Heart Disease: Mother (CHF) Review of Systems - Review of Systems Constitutional: reports: Weakness Eyes: reports: No Symptoms HENT: reports: No Symptoms Neck: reports: No Symptoms Cardiovascular: reports: No Symptoms Respiratory: reports: Cough Gastrointestinal: reports: No Symptoms Genitourinary: reports: No Symptoms Musculoskeletal: reports: Joint Pain (shoulders) Integumentary: reports: No Symptoms Neurological: reports: Pre-Existing Deficit, Weakness Endocrine: reports: No Symptoms Hematology/Lymphatic: reports: No Symptoms Psychiatric: reports: Depression, Other (anxiety disorder with bouts of agitation) Physical Examination Vital Signs: Vital Signs Temperature 97.5 F L 12/26/16 12:00 Pulse Rate 49 L 12/26/16 12:00 Respiratory Rate 18 12/26/16 12:00 Blood Pressure 103/59 12/26/16 12:00 O2 Sat by Pulse Oximetry (%) 99 12/26/16 13:39 Findings/Remarks: awake, alert lying in bed in NAD skin--no acute lesions eyes--midline; EOMI oral--edentulous; no droop neck--supple, no masses, nodes or goiter lungs--subopt inspiration, but unalabored, no wheezing rales or rhonchi heard heart--RR distant abd--obese, soft, BS+, NT, ND --unremarkable extr--(+) pain on shoulder ROM, R>L; no swelling, redness. No pain on Leg ROM; no CCE neuro--alert, awake, coherent but is cognitively impoverished though is able to answer very basic questions. he does recall being acutely ill, but cannot provide specific details. Good eye contact; follows commands; can lift arms & legs against gravity. No definite oniel-plegia appreciated. No droop of the mouth. No foot clonus. Muscle tone not rigid. No tremors. Plantars equivocal Labs: CBC, BMP 12/26/16 06:03 12/26/16 06:03 Imaging - Results Chest X-ray: Report Reviewed Cat Scan: Report Reviewed EKG: Report Reviewed Problem List - Problems (1) Sepsis Assessment/Plan: with high WBC and left shift; source unclear. Upper resp seems likely though CXR does not reveal any infiltrates yet. KIRSTEN: cont dysph diet; IV Abs and Neb Tx Code(s): A41.9 - SEPSIS, UNSPECIFIED ORGANISM Qualifiers: Sepsis type: sepsis due to unspecified organism Qualified Code(s): A41.9 - Sepsis, unspecified organism (2) Benign hypertensive renal disease Assessment/Plan: BP on low end of NL; will reduce dose of BB, and Cont IVF support Code(s): I12.9 - HYPERTENSIVE CHRONIC KIDNEY DISEASE W STG 1-4/UNSP CHR KDNY (3) History of cerebrovascular accident with residual deficit Assessment/Plan: Hx of multiple strokes; with cogn impairemnet & mobility impairments. Normally non ambulatory. Code(s): I69.30 - UNSPECIFIED SEQUELAE OF CEREBRAL INFARCTION (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 Assessment/Plan: chronic; is on dysphagia diet; will continue. Concern for aspiration being considered. Code(s): I69.991 - DYSPHAGIA FOLLOWING UNSPECIFIED CEREBROVASCULAR DISEASE (5) Bronchitis, chronic Assessment/Plan: stable at present; will Rx Neb Tx Code(s): J42 - UNSPECIFIED CHRONIC BRONCHITIS Qualifiers: Chronic bronchitis type: unspecified Qualified Code(s): J42 - Unspecified chronic bronchitis (6) Dementia with behavioral disturbance Assessment/Plan: due to past CVA; but has underlying depression as well. Prone to bouts of agitation for which he gets Haldol and prn Xanax. Will avoid Haldol for now, and use Seroquel Code(s): F03.91 - UNSPECIFIED DEMENTIA WITH BEHAVIORAL DISTURBANCE Qualifiers : Dementia type: vascular dementia Qualified Code(s): F01.51 - Vascular dementia with behavioral disturbance (7) Essential thrombocythemia Assessment/Plan: controlled with Hydrea. Code(s): D47.3 - ESSENTIAL (HEMORRHAGIC) THROMBOCYTHEMIA (8) Hyperuricemia Assessment/Plan: 2nd use of Hydrea? will check levels Code(s): E79.0 - HYPERURICEMIA W/O SIGNS OF INFLAM ARTHRIT AND TOPHACEOUS DIS (9) Depression Assessment/Plan: chronic; Tx with prozac as per past Psychiatrists Code(s): F32.9 - MAJOR DEPRESSIVE DISORDER, SINGLE EPISODE, UNSPECIFIED Qualifiers: Depression Type: unspecified Qualified Code(s): F32.9 - Major depressive disorder, single episode, unspecified (10) Mobility impaired Assessment/Plan: 2nd past CVA Code(s): Z74.09 - OTHER REDUCED MOBILITY (11) HLD (hyperlipidemia) Assessment/Plan: has been on statin Code(s): E78.5 - HYPERLIPIDEMIA, UNSPECIFIED Qualifiers: Hyperlipidemia type: pure hypercholesterolemia (12) Shoulder pain, bilateral Assessment/Plan: R> L; cause artthritic; will Xray Code(s): M25.511 - PAIN IN RIGHT SHOULDER M25.512 - PAIN IN LEFT SHOULDER Qualifiers: Chronicity: acute Qualified Code(s): M25.511 - Pain in right shoulder; M25.512 - Pain in left shoulder Assessment/Plan 81 Y/O acutely ill cogn impaired male; who presents with septic syndrome, and who will need IVF, IV ABS, and monitoring. ~~~~~~~~~~~~~~~~ dr Galloway.......................1 Hr
[2016-12-26] MEDS: LEVOFLOXACIN 500 MG IVPB 100 ML IVPB SCH (20:04)
[2016-12-26] MEDS: HALOPERIDOL LACTATE 5 MG/ML IM PRN (20:15)
[2016-12-26] MEDS ORDERED: MIRTAZAPINE 15 MG TABLET (FP) PO SCH (22:00)
[2016-12-27] MEDS: SODIUM CHLORIDE 1,000 ML IV SCH (01:45)
[2016-12-27] MEDS: METRONIDAZOLE 500 MG PREMIXED 100 ML IVPB SCH ×3 (02:37→17:19)
[2016-12-27] MEDS: ALBUTEROL SO4 2.5/IPRATROPIUM 0.5 INH SOL 3 ML VIAL.NEB. NEB SCH ×4 (06:58→22:20)
[2016-12-27 08:59] LABS: MCH 33.2 pg (25.7-33.7); MCHC 33.4 g/dl (32.0-35.9); MEAN CELL VOLUME 99.5 fl (80-96); MEAN PLT VOLUME 7.8 fl (7.5-11.1); PLATELET COUNT 344 K/MM3 (134-434); RDW 16.7 % (11.9-15.9); WHITE BLOOD COUNT 11.2 K/mm3 (4.0-10.0)
[2016-12-27 09:26] LABS: ANION GAP 11 (8-16); CALCIUM 9.2 mg/dL (8.5-10.1); CO2 27 mmol/L (21-32); GLUCOSE,RANDOM 98 mg/dL (74-106); URIC ACID 3.4 mg/dL (2.6-7.2)
[2016-12-27 09:35] LABS: THYROID STIMULATING HORMONE 2.07 uIU/ml (0.358-3.74)
[2016-12-27] MEDS ORDERED: PT OWN MED DRAWER 7, Y5N ONE ×2 (09:53→10:04)
[2016-12-27] MEDS: HEPARIN NA (PORCINE) 5,000 UNITS/ML 1ML VIAL SQ SCH ×2 (09:59→21:04)
[2016-12-27] MEDS: ASPIRIN COATED 81 MG TABLET.EC PO SCH (09:59)
[2016-12-27] MEDS: HYDROXYUREA 500 MG CAPSULE PO SCH (09:59)
[2016-12-27] MEDS: ATENOLOL 25 MG TABLET (FP) PO SCH (09:59)
[2016-12-27] MEDS: LEVOFLOXACIN 500 MG IVPB 100 ML IVPB SCH (10:00)
[2016-12-27] MEDS: FAMOTIDINE 20 MG/50 ML IVPB 50 ML IVPB SCH (10:00)
[2016-12-27] MEDS: FLUoxetine HCL 20 MG CAPSULE (FP) PO SCH (10:04)
[2016-12-27 10:28] LABS: ERYTHROCYTE SEDIMENTATION RATE 65 mm/hr (0-20)
--- NOTE | 2016-12-27 13:34 | PN ---
Progress Note (short form) - Note Progress Note: Current Medications Acetaminophen (Tylenol Oral Solution -) 650 mg PO Q6H PRN PRN Reason: FEVER Last Admin: 12/26/16 06:47 Dose: 650 mg Albuterol/Ipratropium (Duoneb -) 1 amp NEB TIDR [facility] Last Admin: 12/27/16 12:22 Dose: 1 amp Alprazolam (Xanax -) 0.5 mg PO BID PRN PRN Reason: ANXIETY Aspirin (Ecotrin -) 81 mg PO DAILY [facility] Last Admin: 12/27/16 09:59 Dose: 81 mg Atorvastatin Calcium (Lipitor -) 10 mg PO HS [facility] Fluoxetine HCl (Prozac -) 40 mg PO DAILY [facility] Last Admin: 12/27/16 10:04 Dose: 40 mg Guaifenesin (Robitussin Dm -) 10 ml PO BID [facility] Haloperidol (Haldol Injection (Fast Acting) -) 2 mg IM HS PRN PRN Reason: AGITATION Last Admin: 12/26/16 20:15 Dose: 2 mg Heparin Sodium (Porcine) (Heparin -) 5,000 unit SQ BID [facility] Last Admin: 12/27/16 09:59 Dose: 5,000 unit Hydroxyurea (Hydrea -) 500 mg PO DAILY [facility] Last Admin: 12/27/16 09:59 Dose: 500 mg Metronidazole (Flagyl 500mg Premixed Ivpb -) 100 mls @ 100 mls/hr IVPB Q8H-IV [facility] Last Admin: 12/27/16 10:00 Dose: 100 mls/hr Levofloxacin (Levaquin 500 Mg Premixed Ivpb -) 100 mls @ 100 mls/hr IVPB DAILY [facility] Last Admin: 12/27/16 10:00 Dose: 100 mls/hr Famotidine/Sodium Chloride (Pepcid 20 Mg Premixed Ivpb -) 50 mls @ 100 mls/hr IVPB DAILY [facility] Last Admin: 12/27/16 10:00 Dose: 100 mls/hr Metoprolol Succinate (Toprol Xl -) 12.5 mg PO DAILY [facility] Laboratory Results - last 24 hr 12/27/16 12/27/16 12/27/16 08:40 08:40 10:10 WBC 11.2 H D RBC 4.40 Hgb 14.6 D Hct 43.8 MCV 99.5 H MCHC 33.4 RDW 16.7 H Plt Count 344 MPV 7.8 ESR 65 H Sodium 147 H Potassium 3.6 Chloride 109 H Carbon Dioxide 27 Anion Gap 11 BUN 10 D Creatinine 1.0 Random Glucose 98 Lactic Acid 1.9 Uric Acid 3.4 D Calcium 9.2 TSH 2.07 D Vital Signs Temperature 98.0 F 12/27/16 11:18 Pulse Rate 68 12/27/16 12:34 Respiratory Rate 18 12/27/16 12:34 Blood Pressure 118/67 12/27/16 12:34 O2 Sat by Pulse Oximetry (%) 93 L 12/27/16 12:23 CC: cough ``````````````` skin--good color eyes--midline; EOMI neck--no stridor lungs--few rhonchi; unlabored heart--Slow RR abd--soft, NT ext--no edema neuro--sluggish but awake & aware; cognition is impoverished. Able to move all extrems ````````````````````` Summ > fever/leukocytosis--sepsis state; now afebrile and WBC normalizing; await cultures. 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 PLAN : Prn Xanax and if very combative, will need Prn Haldol ~~~~~~~~~~~~~~~ Dr Galloway Problem List - Problems (1) Sepsis Code(s): A41.9 - SEPSIS, UNSPECIFIED ORGANISM Qualifiers: Sepsis type: sepsis due to unspecified organism Qualified Code(s): A41.9 - Sepsis, unspecified organism (2) Benign hypertensive renal disease Code(s): I12.9 - HYPERTENSIVE CHRONIC KIDNEY DISEASE W STG 1-4/UNSP CHR KDNY (3) History of cerebrovascular accident with residual deficit Code(s): I69.30 - UNSPECIFIED SEQUELAE OF CEREBRAL INFARCTION (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 Code(s): I69.991 - DYSPHAGIA FOLLOWING UNSPECIFIED CEREBROVASCULAR DISEASE (5) Bronchitis, chronic Code(s): J42 - UNSPECIFIED CHRONIC BRONCHITIS Qualifiers: Chronic bronchitis type: unspecified Qualified Code(s): J42 - Unspecified chronic bronchitis (6) Dementia with behavioral disturbance Code(s): F03.91 - UNSPECIFIED DEMENTIA WITH BEHAVIORAL DISTURBANCE Qualifiers : Dementia type: vascular dementia Qualified Code(s): F01.51 - Vascular dementia with behavioral disturbance (7) Essential thrombocythemia Code(s): D47.3 - ESSENTIAL (HEMORRHAGIC) THROMBOCYTHEMIA (8) Hyperuricemia Code(s): E79.0 - HYPERURICEMIA W/O SIGNS OF INFLAM ARTHRIT AND TOPHACEOUS DIS (9) Depression Code(s): F32.9 - MAJOR DEPRESSIVE DISORDER, SINGLE EPISODE, UNSPECIFIED Qualifiers: Depression Type: unspecified Qualified Code(s): F32.9 - Major depressive disorder, single episode, unspecified (10) Mobility impaired Code(s): Z74.09 - OTHER REDUCED MOBILITY (11) HLD (hyperlipidemia) Code(s): E78.5 - HYPERLIPIDEMIA, UNSPECIFIED Qualifiers: Hyperlipidemia type: pure hypercholesterolemia (12) Shoulder pain, bilateral Code(s): M25.511 - PAIN IN RIGHT SHOULDER M25.512 - PAIN IN LEFT SHOULDER Qualifiers: Chronicity: acute Qualified Code(s): M25.511 - Pain in right shoulder; M25.512 - Pain in left shoulder
[2016-12-27] MEDS ORDERED: POTASSIUM CHLORIDE 10 MEQ in SODIUM CHLORIDE 0.45% 1,000 ML IVPB SCH (20:30)
[2016-12-27] MEDS: ACETAMINOPHEN 650 MG/20.3 ML ORAL SOLUTION (CUPS) PO PRN (21:02)
[2016-12-27] MEDS: ATORVASTATIN CA 10 MG TABLET (FP) PO SCH (21:04)
[2016-12-27] MEDS: guaiFENesin/D-METHORPHAN HB 10 ML UNIT-DOSE CUPS PO SCH (21:04)
[2016-12-28] MEDS: METRONIDAZOLE 500 MG PREMIXED 100 ML IVPB SCH ×3 (02:48→17:45)
[2016-12-28] MEDS: ALBUTEROL SO4 2.5/IPRATROPIUM 0.5 INH SOL 3 ML VIAL.NEB. NEB SCH ×5 (06:56→21:55)
[2016-12-28 08:22] LABS: MCH 33.8 pg (25.7-33.7); MCHC 33.6 g/dl (32.0-35.9); MEAN CELL VOLUME 100.7 fl (80-96); MEAN PLT VOLUME 8.1 fl (7.5-11.1); PLATELET COUNT 320 K/MM3 (134-434); RDW 17.6 % (11.9-15.9); WHITE BLOOD COUNT 15.7 K/mm3 (4.0-10.0)
[2016-12-28 08:46] LABS: ANION GAP 10 (8-16); CO2 27 mmol/L (21-32); CREATININE 2.3 mg/dL (0.7-1.3); GLUCOSE,RANDOM 112 mg/dL (74-106)
--- NOTE | 2016-12-28 09:08 | PN ---
Progress Note, Physician Chief Complaint: Covering for Dr Galloway Spoke with nurse Events noted Pt lethargic today-- was more awake yesterday Says "yes " and " no" only on ventimask-- O2 sat 90 % - Current Medication List Current Medications: Active Medications Acetaminophen (Tylenol Oral Solution -) 650 mg PO Q6H PRN PRN Reason: FEVER Last Admin: 12/27/16 21:02 Dose: 650 mg Albuterol/Ipratropium (Duoneb -) 1 amp NEB TIDR [facility] Last Admin: 12/28/16 06:56 Dose: 1 amp Alprazolam (Xanax -) 0.5 mg PO BID PRN PRN Reason: ANXIETY Aspirin (Ecotrin -) 81 mg PO DAILY [facility] Last Admin: 12/27/16 09:59 Dose: 81 mg Atorvastatin Calcium (Lipitor -) 10 mg PO HS [facility] Last Admin: 12/27/16 21:04 Dose: 10 mg Fluoxetine HCl (Prozac -) 40 mg PO DAILY [facility] Last Admin: 12/27/16 10:04 Dose: 40 mg Guaifenesin (Robitussin Dm -) 10 ml PO BID [facility] Last Admin: 12/27/16 21:04 Dose: 10 ml Haloperidol (Haldol Injection (Fast Acting) -) 2 mg IM HS PRN PRN Reason: AGITATION Last Admin: 12/26/16 20:15 Dose: 2 mg Heparin Sodium (Porcine) (Heparin -) 5,000 unit SQ BID [facility] Last Admin: 12/27/16 21:04 Dose: 5,000 unit Hydroxyurea (Hydrea -) 500 mg PO DAILY [facility] Last Admin: 12/27/16 09:59 Dose: 500 mg Metronidazole (Flagyl 500mg Premixed Ivpb -) 100 mls @ 100 mls/hr IVPB Q8H-IV [facility] Last Admin: 12/28/16 02:48 Dose: 100 mls/hr Levofloxacin (Levaquin 500 Mg Premixed Ivpb -) 100 mls @ 100 mls/hr IVPB DAILY [facility] Last Admin: 12/27/16 10:00 Dose: 100 mls/hr Famotidine/Sodium Chloride (Pepcid 20 Mg Premixed Ivpb -) 50 mls @ 100 mls/hr IVPB DAILY [facility] Last Admin: 12/27/16 10:00 Dose: 100 mls/hr Potassium Chloride 10 meq/ (Sodium Chloride) 1,005 mls @ 42 mls/hr IVPB Q24H [facility] Last Admin: 12/27/16 22:45 Dose: 42 mls/hr Metoprolol Succinate (Toprol Xl -) 12.5 mg PO DAILY [facility] - Objective Vital Signs: Vital Signs Temperature 99.7 F H 12/28/16 06:00 Pulse Rate 69 12/28/16 06:00 Respiratory Rate 18 12/28/16 06:00 Blood Pressure 138/67 12/28/16 06:00 O2 Sat by Pulse Oximetry (%) 98 12/27/16 21:00 Constitutional: Yes: No Distress Cardiovascular: Yes: Regular Rate and Rhythm Respiratory: Yes: Diminished. No: Rales, Rhonchi Gastrointestinal: Yes: Normal Bowel Sounds, Soft. No: Distention, Tenderness Edema: No Psychiatric: Yes: Other (lethargic) Labs: CBC, BMP 12/28/16 06:30 12/28/16 06:30 INR, PTT INR 1.21 (0.82-1.09) H 12/26/16 00:05 - ....Imaging Chest X-ray: Image Reviewed (no infiltrates) Problem List - Problems (1) Dementia with behavioral disturbance Code(s): F03.91 - UNSPECIFIED DEMENTIA WITH BEHAVIORAL DISTURBANCE Qualifiers : Dementia type: vascular dementia Qualified Code(s): F01.51 - Vascular dementia with behavioral disturbance (2) Dysphagia as late effect of cerebrovascular disease Code(s): I69.991 - DYSPHAGIA FOLLOWING UNSPECIFIED CEREBROVASCULAR DISEASE (3) Essential thrombocythemia Code(s): D47.3 - ESSENTIAL (HEMORRHAGIC) THROMBOCYTHEMIA (4) Fever Code(s): R50.9 - FEVER, UNSPECIFIED Qualifiers: Fever type: unspecified Qualified Code(s): R50.9 - Fever, unspecified (5) Sepsis Code(s): A41.9 - SEPSIS, UNSPECIFIED ORGANISM Qualifiers: Sepsis type: sepsis due to unspecified organism Qualified Code(s): A41.9 - Sepsis, unspecified organism (6) Renal failure Code(s): N19 - UNSPECIFIED KIDNEY FAILURE Assessment/Plan PLAN check stat Lactate and ABG as O2 sat is low and lethargic Low grade temp Blood culture negative and urine culture negative check bladder scan ID eval IV fluids increase check renal sono continue with antibiotics-- unsure if he needs Flagyl , dose Levaquin according to renal function DVT prophylaxis-- Heparin sc
[2016-12-28] MEDS: HEPARIN NA (PORCINE) 5,000 UNITS/ML 1ML VIAL SQ SCH ×2 (10:07→21:47)
[2016-12-28] MEDS: FAMOTIDINE 20 MG/50 ML IVPB 50 ML IVPB SCH (10:07)
[2016-12-28] MEDS: HYDROXYUREA 500 MG CAPSULE PO SCH ×2 (10:08→11:46)
[2016-12-28] MEDS: METOPROLOL SUCCINATE 25 MG TAB.SR.24H (FP) PO SCH ×2 (10:09→11:52)
[2016-12-28] MEDS: guaiFENesin/D-METHORPHAN HB 10 ML UNIT-DOSE CUPS PO SCH ×3 (10:09→21:48)
[2016-12-28] MEDS: FLUoxetine HCL 20 MG CAPSULE (FP) PO SCH ×2 (10:09→11:47)
[2016-12-28] MEDS ORDERED: PT OWN MED DRAWER 7, Y5N ONE (11:27)
[2016-12-28] MEDS: ASPIRIN COATED 81 MG TABLET.EC PO SCH (11:46)
[2016-12-28] MEDS: ACETAMINOPHEN 650 MG/20.3 ML ORAL SOLUTION (CUPS) PO PRN ×2 (11:52→17:45)
[2016-12-28] MEDS: LEVOFLOXACIN 500 MG IVPB 100 ML IVPB SCH (11:58)
[2016-12-28 13:08] LABS: ARTERIAL BLD GAS O2 SATURATION 96.3 % (90-98.9); ARTERIAL BLOOD GAS BASE EXCESS -0.5 meq/l (-2-2); ARTERIAL BLOOD GAS HCO3 23.6 meq/L (22-26)
[2016-12-28 13:09] LABS: ALLENS TEST POSITIVE; ART PUNCT SITE RIGHT RADIAL; PT. ON O2? YES; TYPE OF O2 NASAL CANNULA
[2016-12-28] MEDS: POTASSIUM CHLORIDE 10 MEQ in SODIUM CHLORIDE 0.45% 1,000 ML IVPB SCH (14:07)
[2016-12-28] MEDS: ATORVASTATIN CA 10 MG TABLET (FP) PO SCH (21:47)
[2016-12-29] MEDS: ALBUTEROL SO4 2.5/IPRATROPIUM 0.5 INH SOL 3 ML VIAL.NEB. NEB SCH ×6 (02:00→22:01)
[2016-12-29] MEDS: METRONIDAZOLE 500 MG PREMIXED 100 ML IVPB SCH ×2 (02:50→11:58)
[2016-12-29 08:10] LABS: MCH 33.7 pg (25.7-33.7); MCHC 33.6 g/dl (32.0-35.9); MEAN CELL VOLUME 100.3 fl (80-96); MEAN PLT VOLUME 7.6 fl (7.5-11.1); PLATELET COUNT 309 K/MM3 (134-434); RDW 17.8 % (11.9-15.9); WHITE BLOOD COUNT 16.7 K/mm3 (4.0-10.0)
[2016-12-29 09:03] LABS: ALBUMIN 2.6 g/dl (3.4-5.0); ANION GAP 9 (8-16); BILIRUBIN,TOTAL 0.5 mg/dL (0.2-1.0); CALCIUM 8.8 mg/dL (8.5-10.1); CO2 27 mmol/L (21-32); CREATININE 1.6 mg/dL (0.7-1.3); GLUCOSE,RANDOM 96 mg/dL (74-106); SGOT/AST 20 U/L (15-37); SGPT/ALT 14 U/L (12-78)
[2016-12-29 09:04] LABS: ALK PHOS 51 U/L (45-117)
[2016-12-29] MEDS ORDERED: LEVOFLOXACIN 250 MG IVPB 50 ML IVPB SCH (10:00)
[2016-12-29] MEDS ORDERED: PT OWN MED DRAWER 7, Y5N ONE ×2 (11:31→19:45)
--- NOTE | 2016-12-29 11:37 | CONSULT ---
Admitting History and Physical - Primary Care Physician PCP: Manuel Galloway - Admission History of Present Illness: Per H&P- "Chief Complaint: weakness & cough History of Present Illness: Patient is a 81 year old home-bound male with significant medical hx of HTN, HLD , multiple CVA's with hx of depression and agitated Dementia, essential thrombocytosis and Hx of GI bleed who is presenting to the ED with one day of fever, lethargy and cough. 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 notes that the patient had high blood pressure on day of admission. The patient is non-ambulatory at baseline, he goes between the bed and the wheelchair. states that the patient can answer questions verbally but very minimal, he often is able to respond with body language. He c/o being "achy" and particularly in both shoulders; his cough is less today. He denied any N-v, diarrhea, abd or CP. There was no report of coughing during his food intake." Selected Entries 12/27/16 12/27/16 12/28/16 14:00 23:00 06:00 Breakfast 25% Lunch 0 Supper 0 Temperature 99.7 F H 12/28/16 12/28/16 12/28/16 09:00 14:00 18:00 Breakfast 0 Lunch 25% Supper Temperature 100.4 F H 100.4 F H 98.3 F 12/28/16 12/29/16 12/29/16 23:23 02:00 05:55 Breakfast Lunch Supper 25% Temperature 98.5 F 98.3 F Laboratory Tests 12/26/16 12/27/16 12/28/16 00:05 08:40 06:30 WBC 17.4 H D 11.2 H D 15.7 H D 12/29/16 06:00 WBC 16.7 H Reported to be more lethargic on 12/28am, but improved, eating and some speech. New right base changes on CXR today. Pt awake/alert, establishing eye contact. Not speaking or accepting PO trials. I was able to elicit repetition of "hello". Pt's reported that he had been on puree and honey liquids here, and at rehab. He has been home for 4 months, and tolerated some regular food eg chicken sandwich, and "slightly thickened " liquids, tolerating diet and eating well. She said he could not get his Haldol and Xanax here and that is why he is not verbally engaging. She reports he has been doing fairly well, intermittently confused at times in am or middle of that night. 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 Cardiovascular: Yes: HTN, Hyperlipdemia Pulmonary: Yes: Asthma Gastrointestinal: Yes: GI Bleed (History of) Renal/: Yes: Renal Inusuff (mild) Heme/Onc: Yes: Other (thrombocytopenia) Infectious Disease: Yes: Other (UTI) Psych: Yes: Anxiety, Depression Musculoskeletal: Yes: Other (Gait dysfunction likely 2nd old CVA) - Smoking History Smoking history: Unknown if ever smoked Have you smoked in the past 12 months: No Aproximately how many cigarettes per day: 0 - Alcohol/Substance Use Hx Alcohol Use: No History of Substance Use: reports: None - Social History ADL: Family Assistance History of Recent Travel: No History - Admission Reason For Visit: (+) FEVER - Diagnostics X-ray: Report Reviewed (New right base changes) Modified Barium Swallow: Report Reviewed (Last MBS 08/15/16 Intermittent aspiration, seemimgly related to distractibility. Dys puree/honey thick rec. Pt needed to be fed to increase focus and reduce aspiration.) - General Mental Status: Flat Affect - Hearing Hearing: Normal Hearing Aide: No Speech Evaluation - Communication Primary Language: LIBERIAN Communication: Yes: Non-Communicable (today, but not baseline. Elicited "Hello". ) - Speech Production Intelligibility: Yes: WNL - Speech Characteristics Voice Loudness: Normal Voice Pitch: Yes: Normal Voice Phonatory-based Quality: Yes: Normal Articulation: Yes: Precise - Language/Auditory Comprehension Observation: Comprehends Conversational Speech: Yes - Swallow Evaluation/Bedside Assessment Current Nutritional Intake: Dysphagia Minced, Honey Textured Liquids Dentition: Yes: Edentulous Facial Symmetry at Rest: Symmetrical A-P Transit: Impaired Recommendations - Speech Evaluation, Impression/Plan Impression: Limited cooperation this am. Case discussed with staff/. Pt's agreed to downgrade diet for now. - Dysphagia Impressions/Plan Dysphagia Impressions: Ongoing Evaluation *Silent aspiration: cannot be R/O at bedside - Recommendations Diet Consistency: Dysphagia Pureed Medication Administration: Crushed with applesauce Liquids: Honey Thick Supplement: Magic Cup
[2016-12-29] MEDS: FAMOTIDINE 20 MG/50 ML IVPB 50 ML IVPB SCH (11:57)
[2016-12-29] MEDS: HEPARIN NA (PORCINE) 5,000 UNITS/ML 1ML VIAL SQ SCH ×2 (11:58→22:25)
[2016-12-29] MEDS: HALOPERIDOL LACTATE 5 MG/ML IM PRN (11:58)
[2016-12-29] MEDS: HYDROXYUREA 500 MG CAPSULE PO SCH (11:59)
[2016-12-29] MEDS: ASPIRIN COATED 81 MG TABLET.EC PO SCH (11:59)
[2016-12-29] MEDS: METOPROLOL SUCCINATE 25 MG TAB.SR.24H (FP) PO SCH (12:00)
[2016-12-29] MEDS: FLUoxetine HCL 20 MG CAPSULE (FP) PO SCH (12:00)
[2016-12-29] MEDS: guaiFENesin/D-METHORPHAN HB 10 ML UNIT-DOSE CUPS PO SCH ×2 (12:00→22:26)
--- NOTE | 2016-12-29 13:49 | PN ---
Progress Note (short form) - Note Progress Note: ID consult dictated imp/reccd sedated from Haldol- history from family at bedside 81 year old man admitted from home with cough and leukocytosis and fever treated with levaquin/flagyl 12/25 to now now with new right basilar infiltrate and persistent leukocytosis, recurrent fever to 100.4 pen allergy but has tolerated ertapenem in the past (jul 2016) ?aspiration/HAP cultures pending will switch to ertapenem adjusted for renal insufficiency Problem List - Problems (1) Pneumonia Code(s): J18.9 - PNEUMONIA, UNSPECIFIED ORGANISM Qualifiers: Pneumonia type: aspiration pneumonia Aspiration pneumonia type: unspecified Laterality: unspecified laterality Lung location: unspecified part of lung Qualified Code(s): J69.0 - Pneumonitis due to inhalation of food and vomit (2) Renal insufficiency Code(s): N28.9 - DISORDER OF KIDNEY AND URETER, UNSPECIFIED (3) Penicillin allergy Code(s): Z88.0 - ALLERGY STATUS TO PENICILLIN
[2016-12-29] MEDS: POTASSIUM CHLORIDE 10 MEQ in SODIUM CHLORIDE 0.45% 1,000 ML IVPB SCH (15:20)
--- NOTE | 2016-12-29 16:48 | CONSULT ---
Consult - text type - Consultation Consultation Note: Renal Consult for ANSELMO This is a 81 year old Gentleman wit PMhx of HTN, HLD, CVA, TIA x 2, CKD ( baseline Cr 1.6) who presented with Fever and found to have PNA with ANSELMO during hospital course. Pt seen and examined at the bedside. Pt is groggy, and not answering questions, however is awake. is at the bedside as well. Pt had been getting sedation. Cr trend as follows: Laboratory Tests 12/26/16 12/27/16 12/28/16 00:05 08:40 06:30 Creatinine 1.3 D 1.0 2.3 H D 12/29/16 07:20 Creatinine 1.6 H D Pt is non-oliguric and has a [place] cather in place. On IVF. No contrast exposure this admission. Was on Levaquin. No overt hypotension. PMhx: as above Allergies: NKDA Family Hx: NC Social Hx: No T/A/D ROS: unable to obtain because of clinical status Home Meds: Home Medications Medication Instructions Recorded Allopurinol [Zyloprim -] 300 mg PO DAILY 09/24/14 Atorvastatin Ca [Lipitor] 20 mg PO HS 09/24/14 Pantoprazole Sodium [Protonix -] 40 mg PO DAILY #14 tablet.ec 07/22/16 Aspirin [ASA -] 81 mg PO DAILY 08/02/16 Atenolol [Tenormin] 50 mg PO DAILY 08/02/16 Fluoxetine HCl Liquid [Prozac 60 mg PO DAILY 08/02/16 20mg/5mL Oral Solution -] Hydroxyurea [Hydrea 500Mg Capsule 500 mg PO TuThSa capsule 08/12/16 -] Acetaminophen [Tylenol .Regular 650 mg PO Q6H PRN #0 tablet 08/16/16 Strength -] Albuterol 0.083% Nebulizer Nohemi 1 amp NEB Q6H PRN #0 amp 08/16/16 [Ventolin 0.083% Nebulizer Soln -] Alprazolam [Xanax] 1 mg PO BID PRN #60 tablet MDD 2 08/16/16 Haloperidol [Haldol -] 2.5 mg PO BID tablet 08/16/16 Heparin - 5,000 unit SQ BID vial 08/16/16 Polyethylene Glycol 3350 [Miralax 17 gm PO DAILY bottle 08/16/16 119 gm Btl -] Vital Signs Temperature 99.0 F 12/29/16 14:59 Pulse Rate 62 12/29/16 14:59 Respiratory Rate 19 12/29/16 05:55 Blood Pressure 162/84 12/29/16 05:55 O2 Sat by Pulse Oximetry (%) 94 L 12/28/16 21:00 Intake & Output 12/26/16 12/27/16 12/28/16 12/29/16 23:59 23:59 23:59 23:59 Intake Total 991 694 6710 720 Output Total 100 700 Balance 349 903 9322 20 Weight 163 lb 9.6 oz CBC, BMP 12/29/16 06:00 12/29/16 07:20 Laboratory Tests 12/25/16 00:45 Urine pH 5.0 Ur Specific [place] 1.020 Urine Protein Negative Urine Blood Negative Current Medications Acetaminophen (Tylenol Oral Solution -) 650 mg PO Q6H PRN PRN Reason: FEVER Last Admin: 12/28/16 17:45 Dose: 650 mg Albuterol/Ipratropium (Duoneb -) 1 amp NEB Q4HPO [facility] Last Admin: 12/29/16 14:23 Dose: 1 amp Alprazolam (Xanax -) 0.5 mg PO BID PRN PRN Reason: ANXIETY Last Admin: 12/28/16 21:47 Dose: 0.5 mg Aspirin (Ecotrin -) 81 mg PO DAILY [facility] Last Admin: 12/29/16 11:59 Dose: Not Given Atorvastatin Calcium (Lipitor -) 10 mg PO HS [facility] Last Admin: 12/28/16 21:47 Dose: 10 mg Fluoxetine HCl (Prozac -) 40 mg PO DAILY [facility] Last Admin: 12/29/16 12:00 Dose: Not Given Guaifenesin (Robitussin Dm -) 10 ml PO BID [facility] Last Admin: 12/29/16 12:00 Dose: Not Given Haloperidol (Haldol Injection (Fast Acting) -) 2 mg IM HS PRN PRN Reason: AGITATION Last Admin: 12/29/16 11:58 Dose: 2 mg Heparin Sodium (Porcine) (Heparin -) 5,000 unit SQ BID [facility] Last Admin: 12/29/16 11:58 Dose: 5,000 unit Hydroxyurea (Hydrea -) 500 mg PO DAILY [facility] Last Admin: 12/29/16 11:59 Dose: Not Given Famotidine/Sodium Chloride (Pepcid 20 Mg Premixed Ivpb -) 50 mls @ 100 mls/hr IVPB DAILY [facility] Last Admin: 12/29/16 11:57 Dose: 100 mls/hr Potassium Chloride 10 meq/ (Sodium Chloride) 1,005 mls @ 60 mls/hr IVPB Q24H [facility] Last Admin: 12/29/16 15:20 Dose: Not Given Ertapenem 1 gm/ Sodium (Chloride) 50 mls @ 100 mls/hr IVPB DAILY [facility] PRN Reason: Protocol Metoprolol Succinate (Toprol Xl -) 12.5 mg PO DAILY [facility] Last Admin: 12/29/16 12:00 Dose: Not Given A/P 81 year old Gentleman wit PMhx of HTN, HLD, CVA, TIA x 2, CKD (baseline Cr 1.6) who presented with Fever and found to have PNA with ANSELMO during hospital course. #Acute on Chronic Renal Insufficiency etiolgy unclear but differential includes AIN, hemodynamic changes in setting of sepsis, intermittent obstruction Check Urien studies for FeNa, UPCR Renal US w/o obstruction at this time Cr improving with Isotonic saline continue IVF at current rate Trend BUN/Cr no indication for PEGGER DOBBY LOOMS off Levaquin #PNA/Fever continue Abx as per ID supportive care #Hypertension Continue metoprolol if BP very high can add CCB like Amlodpine Gaol BP < 140/90 no BARRY/ARB at this time given acute renal insufficiency Thank you for this referral Will follow Lee Ramirez DO
--- NOTE | 2016-12-29 17:26 | PN ---
Progress Note (short form) - Note Progress Note: Current Medications Acetaminophen (Tylenol Oral Solution -) 650 mg PO Q6H PRN PRN Reason: FEVER Last Admin: 12/28/16 17:45 Dose: 650 mg Albuterol/Ipratropium (Duoneb -) 1 amp NEB Q4HPO [facility] Last Admin: 12/29/16 14:23 Dose: 1 amp Alprazolam (Xanax -) 0.5 mg PO BID PRN PRN Reason: ANXIETY Last Admin: 12/28/16 21:47 Dose: 0.5 mg Aspirin (Ecotrin -) 81 mg PO DAILY [facility] Last Admin: 12/29/16 11:59 Dose: Not Given Atorvastatin Calcium (Lipitor -) 10 mg PO HS [facility] Last Admin: 12/28/16 21:47 Dose: 10 mg Fluoxetine HCl (Prozac -) 40 mg PO DAILY [facility] Last Admin: 12/29/16 12:00 Dose: Not Given Guaifenesin (Robitussin Dm -) 10 ml PO BID [facility] Last Admin: 12/29/16 12:00 Dose: Not Given Haloperidol (Haldol Injection (Fast Acting) -) 2 mg IM HS PRN PRN Reason: AGITATION Last Admin: 12/29/16 11:58 Dose: 2 mg Heparin Sodium (Porcine) (Heparin -) 5,000 unit SQ BID [facility] Last Admin: 12/29/16 11:58 Dose: 5,000 unit Hydroxyurea (Hydrea -) 500 mg PO DAILY [facility] Last Admin: 12/29/16 11:59 Dose: Not Given Famotidine/Sodium Chloride (Pepcid 20 Mg Premixed Ivpb -) 50 mls @ 100 mls/hr IVPB DAILY [facility] Last Admin: 12/29/16 11:57 Dose: 100 mls/hr Potassium Chloride 10 meq/ (Sodium Chloride) 1,005 mls @ 60 mls/hr IVPB Q24H [facility] Last Admin: 12/29/16 15:20 Dose: Not Given Ertapenem 1 gm/ Sodium (Chloride) 50 mls @ 100 mls/hr IVPB DAILY [facility] PRN Reason: Protocol Metoprolol Succinate (Toprol Xl -) 12.5 mg PO DAILY [facility] Last Admin: 12/29/16 12:00 Dose: Not Given Quetiapine Fumarate (Seroquel -) 25 mg PO BID [facility] Laboratory Results - last 24 hr 12/27/16 12/29/16 12/29/16 08:40 06:00 07:20 WBC 16.7 H RBC 3.53 L Hgb 11.9 Hct 35.4 MCV 100.3 H MCHC 33.6 RDW 17.8 H Plt Count 309 MPV 7.6 Sodium 143 Potassium 3.7 Chloride 107 Carbon Dioxide 27 Anion Gap 9 BUN 25 H Creatinine 1.6 H D Creat Clearance w eGFR 41.90 Random Glucose 96 Calcium 8.8 Total Bilirubin 0.5 AST 20 ALT 14 D Alkaline Phosphatase 51 D Total Protein 6.0 L Albumin 2.6 L D Cortisol AM Sample 14.7 Vital Signs Temp 99.0 F 12/29/16 14:59 Pulse 62 12/29/16 14:59 Resp 19 12/29/16 05:55 BP 162/84 12/29/16 05:55 Pulse Ox 94 L 12/28/16 21:00 Intake & Output 12/28/16 12/29/16 12/29/16 23:59 11:59 23:59 Intake Total 1620 520 200 Output Total 100 300 400 Balance 1520 220 -200 Intake: IV 740 420 NS W/KCL 10 meq. @ 60cc/ 740 420 hr IVPB 300 100 Oral 580 200 Output: Urine 100 300 400 Void 0 300 Straight Cath 100 400 Other: Voiding Method Incontinent External Catheter # Unmeasured Voids Void 0 Bowel Movement No No No # Bowel Movements 1 CC: reports agitation ``````````````` skin--good color eyes--midline neck--no stridor lungs--unlabored heart--Slow RR abd--soft, NT ext--no edema neuro--drowsy but rousable; confused, cognition is impoverished. Able to move all extrems ````````````````````` Summ > fever/leukocytosis--BC neg to date, had recurred on 12/29/16; CXR now reveals RLL density/consolidation to further suggest aspiration; ID note and med changes noted. 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 PLAN : has needed Prn Haldol IM, got PO xanax last PM; will now start Seroquel 25mg BID ```````````````````````````````````````````````````````````````````````````````` Misc: condition and oputlook discussed with who was at bedside ~~~~~~~~~~~~~~~ Dr Galloway Problem List - Problems (1) Sepsis Code(s): A41.9 - SEPSIS, UNSPECIFIED ORGANISM Qualifiers: Qualified Code(s): A41.9 - Sepsis, unspecified organism (2) Benign hypertensive renal disease Code(s): I12.9 - HYPERTENSIVE CHRONIC KIDNEY DISEASE W STG 1-4/UNSP CHR KDNY (3) History of cerebrovascular accident with residual deficit Code(s): I69.30 - UNSPECIFIED SEQUELAE OF CEREBRAL INFARCTION (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 Code(s): I69.991 - DYSPHAGIA FOLLOWING UNSPECIFIED CEREBROVASCULAR DISEASE (5) Bronchitis, chronic Code(s): J42 - UNSPECIFIED CHRONIC BRONCHITIS Qualifiers: Qualified Code(s): J42 - Unspecified chronic bronchitis (6) Dementia with behavioral disturbance Code(s): F03.91 - UNSPECIFIED DEMENTIA WITH BEHAVIORAL DISTURBANCE Qualifiers : Qualified Code(s): F01.51 - Vascular dementia with behavioral disturbance (7) Essential thrombocythemia Code(s): D47.3 - ESSENTIAL (HEMORRHAGIC) THROMBOCYTHEMIA (8) Hyperuricemia Code(s): E79.0 - HYPERURICEMIA W/O SIGNS OF INFLAM ARTHRIT AND TOPHACEOUS DIS (9) Depression Code(s): F32.9 - MAJOR DEPRESSIVE DISORDER, SINGLE EPISODE, UNSPECIFIED Qualifiers: Qualified Code(s): F32.9 - Major depressive disorder, single episode, unspecified (10) Mobility impaired Code(s): Z74.09 - OTHER REDUCED MOBILITY (11) HLD (hyperlipidemia) Code(s): E78.5 - HYPERLIPIDEMIA, UNSPECIFIED Qualifiers: Qualified Code(s): E78.00 - Pure hypercholesterolemia, unspecified; E78.0 - Pure hypercholesterolemia (12) Shoulder pain, bilateral Code(s): M25.511 - PAIN IN RIGHT SHOULDER M25.512 - PAIN IN LEFT SHOULDER Qualifiers: Qualified Code(s): M25.511 - Pain in right shoulder; M25.512 - Pain in left shoulder
[2016-12-29] MEDS: ERTAPENEM SODIUM 1 GM in SODIUM CHLORIDE 50 ML IVPB SCH (17:31)
[2016-12-29] MEDS: ATORVASTATIN CA 10 MG TABLET (FP) PO SCH (22:26)
[2016-12-29] MEDS: QUEtiapine FUMARATE 25 MG TABLET (FP) PO SCH (22:26)
--- NOTE | 2016-12-30 01:41 | CONS ---
DATE OF CONSULTATION: DATE OF DICTATION: 12/29/2016 INFECTIOUS DISEASE CONSULTATION REQUESTING PHYSICIAN: Manuel Galloway M.D. CONSULTING PHYSICIAN: Sabrina Stevenson M.D. HISTORY OF PRESENT ILLNESS: This is a 81-year-old man who lives at home with his family with a past medical history significant for multiple CVAs with depression and agitated dementia. He was admitted on the . He presented to the emergency room on the with a 1-day history of fever and cough and lethargy. He had a dry cough at home. His took his temperature. She noted it was 99.9. He complained of being achy and had pain in both his shoulders and she took his blood pressure, because she was worried that he was unwell. She noted the diastolic pressure was very high, over 100, and she called 911, and he presented to the emergency room. Currently he is sedated. He received Haldol this morning, and he is unable to participate in the exam. He is fast asleep. History is from his . His hospital stay from the has been notable for intermittent agitation which requires Haldol and Xanax p.r.n. There is no history of nausea, vomiting, diarrhea, abdominal, or chest pain. PAST MEDICAL HISTORY: Notable for multiple CVAs. He has a history of hypertension, hyperlipidemia, asthma, GI bleed, renal insufficiency. He has had UTI in the past, he had pneumonia in July of this year, in which he was treated with ertapenem. He is not ambulatory at baseline. He has a history as well of hyperlipidemia and depression and agitated dementia. FAMILY HISTORY: Noncontributory. ALLERGIES: He is allergic to PENICILLIN but in July tolerated ertapenem without any difficulty. HOME MEDICATIONS: Include allopurinol, atorvastatin, Protonix, aspirin, atenolol, Prozac, Hydrea, alprazolam, Haldol, heparin, and Miralax. He has a past medical history as well of thrombocytosis. FAMILY HISTORY: Unremarkable. His mother had heart disease. SOCIAL HISTORY: He is , lives at home with his family. He is able to sit up in a wheelchair. He does not walk independently. His son lives there with them and helps with his father. REVIEW OF SYSTEMS: As per HPI. They report they were told his renal function was not good. He now has a [place] catheter and improved urine output. PHYSICAL EXAMINATION: Vital signs: On the , his temperature was 101.8. He was afebrile until the when he had fever or 100.4. Current temperature is 98.3, pulse 65, blood pressure 162/84, respiratory rate 19. He is saturating 94% on 3 L. HEENT: Normocephalic. He is sleeping but can open his eyes. Neck: Supple. Lungs: Diminished breath sounds at the bases. Heart: Regular rate and rhythm. Abdomen: Soft, nontender. Extremities: Without edema. LABORATORY: Notable for a white count of 16.7, hemoglobin 11.9, platelets of 309. His chemistries: BUN and creatinine are 25 and 1.6, which are improved from 22 and 2.3 yesterday. At baseline his kidneys are improved. His urinalysis is negative. His cultures are pending from admission, the cultures are negative. His chest x-ray reveals a new right basilar infiltrate. IMPRESSION: In summary, this is a 81-year-old man with PENICILLIN allergy, admitted with fevers and cough who now has a right lower lobe infiltrate, possibly aspiration. He has been on Levaquin and Flagyl with no real improvement for the last 72 hours. I doubt he has an atypical pneumonia, with legionella urinary antigen is pending. Admission blood cultures are negative, repeats are pending. Would suggest to switch to ertapenem which he tolerated in July of this year for possible aspiration, possible hospital acquired pneumonia, and follow up his cultures. Will adjust his ertapenem dosing for his renal insufficiency. SABRINA STEVENSON M.D. [id number]
[2016-12-30] MEDS: ALBUTEROL SO4 2.5/IPRATROPIUM 0.5 INH SOL 3 ML VIAL.NEB. NEB SCH ×6 (02:20→22:16)
[2016-12-30] MEDS: POTASSIUM CHLORIDE 10 MEQ in SODIUM CHLORIDE 0.45% 1,000 ML IVPB SCH ×2 (02:58→21:24)
[2016-12-30 07:12] LABS: BASOPHIL 0.6 % (0-2.0); EOSINOPHIL 3.9 % (0-4.5); MCH 33.5 pg (25.7-33.7); MCHC 33.2 g/dl (32.0-35.9); MEAN CELL VOLUME 100.9 fl (80-96); NEUTROPHILS 63.1 % (42.8-82.8); PLATELET COUNT 301 K/MM3 (134-434); WHITE BLOOD COUNT 11.9 K/mm3 (4.0-10.0)
[2016-12-30 07:38] LABS: ALBUMIN 2.5 g/dl (3.4-5.0); ALK PHOS 47 U/L (45-117); ANION GAP 8 (8-16); BILIRUBIN,TOTAL 0.5 mg/dL (0.2-1.0); CALCIUM 8.7 mg/dL (8.5-10.1); CO2 27 mmol/L (21-32); CREATININE 1.1 mg/dL (0.7-1.3); GLUCOSE,RANDOM 81 mg/dL (74-106); MAGNESIUM 1.7 mg/dL (1.8-2.4); SGOT/AST 21 U/L (15-37); SGPT/ALT 15 U/L (12-78); TOT PROT 5.9 g/dl (6.4-8.2)
[2016-12-30] MEDS ORDERED: PT OWN MED DRAWER 7, Y5N ONE ×2 (10:55→14:23)
[2016-12-30] MEDS: HYDROXYUREA 500 MG CAPSULE PO SCH (11:00)
[2016-12-30] MEDS: ASPIRIN COATED 81 MG TABLET.EC PO SCH (11:00)
[2016-12-30] MEDS: ERTAPENEM SODIUM 1 GM in SODIUM CHLORIDE 50 ML IVPB SCH (11:01)
[2016-12-30] MEDS: HEPARIN NA (PORCINE) 5,000 UNITS/ML 1ML VIAL SQ SCH ×2 (11:01→21:28)
[2016-12-30] MEDS: FLUoxetine HCL 20 MG CAPSULE (FP) PO SCH (11:02)
[2016-12-30] MEDS: QUEtiapine FUMARATE 25 MG TABLET (FP) PO SCH ×2 (11:02→21:28)
[2016-12-30] MEDS: METOPROLOL SUCCINATE 25 MG TAB.SR.24H (FP) PO SCH (11:02)
[2016-12-30] MEDS: guaiFENesin/D-METHORPHAN HB 10 ML UNIT-DOSE CUPS PO SCH ×2 (11:02→21:28)
[2016-12-30] MEDS: FAMOTIDINE 20 MG/50 ML IVPB 50 ML IVPB SCH (11:08)
[2016-12-30] MEDS ORDERED: MAGNESIUM SULF 50% (8.12 MEQ/2 ML-1 GM VIAL) IVPB ONE (11:39)
--- NOTE | 2016-12-30 11:39 | PN ---
Progress Note, DENTAL PRACTICE MANAGER - Note Progress Note: Selected Entries 12/29/16 12/29/16 12/29/16 02:00 05:55 09:00 Breakfast Supper Temperature 98.5 F 98.3 F 99.0 F 12/29/16 12/29/16 12/29/16 12:21 14:59 20:49 Breakfast 0 Supper 50% Temperature 99.0 F 12/29/16 12/30/16 12/30/16 22:29 05:44 11:19 Breakfast 25% Supper Temperature 98.9 F 98.4 F Laboratory Tests 12/28/16 12/29/16 12/30/16 06:30 06:00 06:35 WBC 15.7 H D 16.7 H 11.9 H Pt more alert. Calm and comfortable. Limited speech initiation. Oriented to hospital, July, yo. Overtly tolerates puree/honey thick liquid. Silent aspiration can not be r/o at bedside. Suggest MBS to r/o aspiration. Discussed with PMD.
--- NOTE | 2016-12-30 11:43 | PN ---
Progress Note (short form) - Note Progress Note: Renal follow up for ANSELMO Pt seen and examined at the bedside sleeping at the bedside no overnight events Vital Signs Temperature 98.4 F 12/30/16 05:44 Pulse Rate 68 12/30/16 05:44 Respiratory Rate 20 12/30/16 05:44 Blood Pressure 151/77 12/30/16 05:44 O2 Sat by Pulse Oximetry (%) 96 12/29/16 21:00 Intake & Output 12/27/16 12/28/16 12/29/16 12/30/16 23:59 23:59 23:59 23:59 Intake Total 700 1972 1620 970 Output Total 300 1110 400 Balance 700 1672 510 570 Gen: NAD, Sleeping CVS: RRR, No M/R Lungs: CTA anterior exam Abd: soft NT/ND Ext: No edema, clubbing or cyanosis CBC, BMP 12/30/16 06:35 12/30/16 06:35 Laboratory Tests 12/30/16 06:35 Calcium 8.7 Phosphorus 3.0 Magnesium 1.7 L Current Medications Acetaminophen (Tylenol Oral Solution -) 650 mg PO Q6H PRN PRN Reason: FEVER Last Admin: 12/28/16 17:45 Dose: 650 mg Albuterol/Ipratropium (Duoneb -) 1 amp NEB Q4HPO [facility] Last Admin: 12/30/16 10:45 Dose: 1 amp Alprazolam (Xanax -) 0.5 mg PO BID PRN PRN Reason: ANXIETY Last Admin: 12/28/16 21:47 Dose: 0.5 mg Aspirin (Ecotrin -) 81 mg PO DAILY [facility] Last Admin: 12/30/16 11:00 Dose: 81 mg Atorvastatin Calcium (Lipitor -) 10 mg PO HS [facility] Last Admin: 12/29/16 22:26 Dose: 10 mg Fluoxetine HCl (Prozac -) 40 mg PO DAILY [facility] Last Admin: 12/30/16 11:02 Dose: 40 mg Guaifenesin (Robitussin Dm -) 10 ml PO BID [facility] Last Admin: 12/30/16 11:02 Dose: 10 ml Haloperidol (Haldol Injection (Fast Acting) -) 2 mg IM HS PRN PRN Reason: AGITATION Last Admin: 12/29/16 11:58 Dose: 2 mg Heparin Sodium (Porcine) (Heparin -) 5,000 unit SQ BID [facility] Last Admin: 12/30/16 11:01 Dose: 5,000 unit Hydroxyurea (Hydrea -) 500 mg PO DAILY [facility] Last Admin: 12/30/16 11:00 Dose: 500 mg Famotidine/Sodium Chloride (Pepcid 20 Mg Premixed Ivpb -) 50 mls @ 100 mls/hr IVPB DAILY [facility] Last Admin: 12/30/16 11:08 Dose: 100 mls/hr Potassium Chloride 10 meq/ (Sodium Chloride) 1,005 mls @ 60 mls/hr IVPB Q24H [facility] Last Admin: 12/30/16 02:58 Dose: 60 mls/hr Ertapenem 1 gm/ Sodium (Chloride) 50 mls @ 100 mls/hr IVPB DAILY [facility] PRN Reason: Protocol Last Admin: 12/30/16 11:01 Dose: 100 mls/hr Magnesium Sulfate (Magnesium Sulfate) 2 gm IVPB ONCE ONE Stop: 12/30/16 11:40 Metoprolol Succinate (Toprol Xl -) 12.5 mg PO DAILY [facility] Last Admin: 12/30/16 11:02 Dose: 12.5 mg Quetiapine Fumarate (Seroquel -) 25 mg PO BID [facility] Last Admin: 12/30/16 11:02 Dose: 25 mg A/P 81 year old Gentleman wit PMhx of HTN, HLD, CVA, TIA x 2, CKD (baseline Cr 1.6) who presented with Fever and found to have PNA with ANSELMO during hospital course. #Acute on Chronic Renal Insufficiency Renal function improving with conservative IVF continue isotonic saline for now FeNa was 0.18% indicating pre-renal injury, UPC was 0.27 Trend BUN/Cr avoid Nephrotoxins such as NSAIDs, IV contrast for now #PNA/Fever continue Abx as per ID supportive care #Hypertension Continue metoprolol BP is above goal start Amlodipine 5mg Daily in addition Lee Ramirez DO
--- NOTE | 2016-12-30 13:44 | PN ---
Progress Note (short form) - Note Progress Note: alert, nad Vital Signs Period Temp Pulse Resp BP Sys/Peña Pulse Ox Last 24 Hr 98.4 F-99.0 F 62-78 20-22 134-151/70-77 96 cor-rrr lungs decreased bs at bases abd soft,nt ext no edema CBC, BMP 12/30/16 06:35 12/30/16 06:35 imp/reccd pneumonia ?aspiration/HAP cultures pending continue ertapenem day #2 Problem List - Problems (1) Pneumonia Code(s): J18.9 - PNEUMONIA, UNSPECIFIED ORGANISM Qualifiers: Pneumonia type: aspiration pneumonia Aspiration pneumonia type: unspecified Laterality: unspecified laterality Lung location: unspecified part of lung Qualified Code(s): J69.0 - Pneumonitis due to inhalation of food and vomit (2) Renal insufficiency Code(s): N28.9 - DISORDER OF KIDNEY AND URETER, UNSPECIFIED (3) Penicillin allergy Code(s): Z88.0 - ALLERGY STATUS TO PENICILLIN
[2016-12-30] MEDS: ACETAMINOPHEN 650 MG/20.3 ML ORAL SOLUTION (CUPS) PO PRN (15:31)
[2016-12-30] MEDS ORDERED: ALPRAZolam 0.25 MG TABLET PO STA (16:53)
--- NOTE | 2016-12-30 17:12 | PN ---
Progress Note (short form) - Note Progress Note: Current Medications Acetaminophen (Tylenol Oral Solution -) 650 mg PO Q6H PRN PRN Reason: FEVER Last Admin: 12/30/16 15:31 Dose: 650 mg Albuterol/Ipratropium (Duoneb -) 1 amp NEB Q4HPO [facility] Last Admin: 12/30/16 14:15 Dose: 1 amp Aspirin (Ecotrin -) 81 mg PO DAILY [facility] Last Admin: 12/30/16 11:00 Dose: 81 mg Atorvastatin Calcium (Lipitor -) 10 mg PO HS [facility] Last Admin: 12/29/16 22:26 Dose: 10 mg Fluoxetine HCl (Prozac -) 40 mg PO DAILY [facility] Last Admin: 12/30/16 11:02 Dose: 40 mg Guaifenesin (Robitussin Dm -) 10 ml PO BID [facility] Last Admin: 12/30/16 11:02 Dose: 10 ml Haloperidol (Haldol Injection (Fast Acting) -) 1 mg IM BID PRN PRN Reason: AGITATION Heparin Sodium (Porcine) (Heparin -) 5,000 unit SQ BID [facility] Last Admin: 12/30/16 11:01 Dose: 5,000 unit Hydroxyurea (Hydrea -) 500 mg PO DAILY [facility] Last Admin: 12/30/16 11:00 Dose: 500 mg Famotidine/Sodium Chloride (Pepcid 20 Mg Premixed Ivpb -) 50 mls @ 100 mls/hr IVPB DAILY [facility] Last Admin: 12/30/16 11:08 Dose: 100 mls/hr Potassium Chloride 10 meq/ (Sodium Chloride) 1,005 mls @ 60 mls/hr IVPB Q24H [facility] Last Admin: 12/30/16 02:58 Dose: 60 mls/hr Ertapenem 1 gm/ Sodium (Chloride) 50 mls @ 100 mls/hr IVPB DAILY [facility] PRN Reason: Protocol Last Admin: 12/30/16 11:01 Dose: 100 mls/hr Metoprolol Succinate (Toprol Xl -) 12.5 mg PO DAILY [facility] Last Admin: 12/30/16 11:02 Dose: 12.5 mg Quetiapine Fumarate (Seroquel -) 25 mg PO TID [facility] Laboratory Results - last 24 hr 12/29/16 12/29/16 12/29/16 18:50 19:18 19:18 WBC RBC Hgb Hct MCV MCHC RDW Plt Count MPV Neutrophils % Lymphocytes % Monocytes % Eosinophils % Basophils % Sodium Potassium Chloride Carbon Dioxide Anion Gap BUN Creatinine Creat Clearance w eGFR Random Glucose Calcium Phosphorus Magnesium Total Bilirubin AST ALT Alkaline Phosphatase Total Protein Albumin U Random Total Protein 77 H Ur Random Sodium 39 Ur Random Urea Nitrogn 942 Urine Creatinine 12/29/16 12/30/16 12/30/16 19:18 06:35 06:35 WBC 11.9 H RBC 3.54 L Hgb 11.9 Hct 35.7 MCV 100.9 H MCHC 33.2 RDW 18.0 H Plt Count 301 MPV 8.0 Neutrophils % 63.1 D Lymphocytes % 21.6 D Monocytes % 10.8 H Eosinophils % 3.9 D Basophils % 0.6 Sodium 142 Potassium 3.8 Chloride 107 Carbon Dioxide 27 Anion Gap 8 BUN 19 H D Creatinine 1.1 D Creat Clearance w eGFR > 60 Random Glucose 81 Calcium 8.7 Phosphorus 3.0 Magnesium 1.7 L Total Bilirubin 0.5 AST 21 ALT 15 Alkaline Phosphatase 47 Total Protein 5.9 L Albumin 2.5 L U Random Total Protein Ur Random Sodium Ur Random Urea Nitrogn Urine Creatinine 277.0 Vital Signs Temperature 97.7 F 12/30/16 13:53 Pulse Rate 72 12/30/16 14:42 Respiratory Rate 18 12/30/16 09:00 Blood Pressure 119/64 12/30/16 13:53 O2 Sat by Pulse Oximetry (%) 94 L 12/30/16 14:42 Vital Signs Temp 97.7 F 12/30/16 13:53 Pulse 72 12/30/16 14:42 Resp 18 12/30/16 09:00 BP 119/64 12/30/16 13:53 Pulse Ox 94 L 12/30/16 14:42 Intake & Output 12/29/16 12/30/16 12/30/16 23:59 11:59 23:59 Intake Total 1100 970 425 Output Total 810 400 Balance 290 570 425 Intake: IV 400 720 NS W/KCL 10 meq. @ 60cc/ 400 720 hr IVPB 300 Oral 400 250 425 Output: Urine 810 400 External Catheter 810 [place] 400 Other: Voiding Method External Catheter External Catheter # Unmeasured Voids External Catheter 100 [place] 2 2 Bowel Movement Yes No # Bowel Movements 1 CC: again reports agitation ``````````````` skin--good color eyes--midline neck--no stridor lungs--unlabored heart--Slow RR abd--soft, NT ext--no edema neuro--alert, verbal, good eye contact, cognition is impoverished. Able to move all extrems ````````````````````` Summ > fever/leukocytosis--abated, less ill appearing. > PNA--aspiration; RLL; will repeat CXR; cont Invanz as per ID > Dysphagia--s/p MBS, showing no gross aspiration on puree & thick liquids; will cont as per [employer]IAN recommendations > renal insuff--improving; US reveal medical renal Dz; no obstruction > Bradycardia--not new; 2nd to BB > Htn--BP high at mid-day; started on CCB > thrombocythemia--essential?; cont Hydrea (keep plt under 400K) > Low Mag--replenish as needed > dementia--with depression & bouts of agitation. PLAN : has Prn Haldol IM for severe agitation; will up Seroquel to 25mg TID ```````````````````````````````````````````````````````````````````````````````` Misc: condition discussed with who was at bedside ~~~~~~~~~~~~~~~ Dr Galloway Problem List - Problems (1) Sepsis Code(s): A41.9 - SEPSIS, UNSPECIFIED ORGANISM Qualifiers: Sepsis type: sepsis due to unspecified organism Qualified Code(s): A41.9 - Sepsis, unspecified organism (2) Benign hypertensive renal disease Code(s): I12.9 - HYPERTENSIVE CHRONIC KIDNEY DISEASE W STG 1-4/UNSP CHR KDNY (3) History of cerebrovascular accident with residual deficit Code(s): I69.30 - UNSPECIFIED SEQUELAE OF CEREBRAL INFARCTION (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 Code(s): I69.991 - DYSPHAGIA FOLLOWING UNSPECIFIED CEREBROVASCULAR DISEASE (5) Bronchitis, chronic Code(s): J42 - UNSPECIFIED CHRONIC BRONCHITIS Qualifiers: Chronic bronchitis type: unspecified Qualified Code(s): J42 - Unspecified chronic bronchitis (6) Dementia with behavioral disturbance Code(s): F03.91 - UNSPECIFIED DEMENTIA WITH BEHAVIORAL DISTURBANCE Qualifiers : Dementia type: vascular dementia Qualified Code(s): F01.51 - Vascular dementia with behavioral disturbance (7) Essential thrombocythemia Code(s): D47.3 - ESSENTIAL (HEMORRHAGIC) THROMBOCYTHEMIA (8) Hyperuricemia Code(s): E79.0 - HYPERURICEMIA W/O SIGNS OF INFLAM ARTHRIT AND TOPHACEOUS DIS (9) Depression Code(s): F32.9 - MAJOR DEPRESSIVE DISORDER, SINGLE EPISODE, UNSPECIFIED Qualifiers: Depression Type: unspecified Qualified Code(s): F32.9 - Major depressive disorder, single episode, unspecified (10) Mobility impaired Code(s): Z74.09 - OTHER REDUCED MOBILITY (11) HLD (hyperlipidemia) Code(s): E78.5 - HYPERLIPIDEMIA, UNSPECIFIED Qualifiers: Hyperlipidemia type: pure hypercholesterolemia (12) Shoulder pain, bilateral Code(s): M25.511 - PAIN IN RIGHT SHOULDER M25.512 - PAIN IN LEFT SHOULDER Qualifiers: Chronicity: acute Qualified Code(s): M25.511 - Pain in right shoulder; M25.512 - Pain in left shoulder
[2016-12-30] MEDS: AMINO ACIDS/PROTEIN HYDROLYS 30 ML LIQUID.PKT PO SCH (18:03)
[2016-12-30] MEDS: HALOPERIDOL LACTATE 5 MG/ML IM PRN (21:27)
[2016-12-30] MEDS: ATORVASTATIN CA 10 MG TABLET (FP) PO SCH (21:28)
[2016-12-31] MEDS: ALBUTEROL SO4 2.5/IPRATROPIUM 0.5 INH SOL 3 ML VIAL.NEB. NEB SCH ×6 (02:20→23:20)
[2016-12-31] MEDS: QUEtiapine FUMARATE 25 MG TABLET (FP) PO SCH ×3 (05:56→21:07)
[2016-12-31 08:03] LABS: BASOPHIL 0.9 % (0-2.0); EOSINOPHIL 6.5 % (0-4.5); MCH 34.6 pg (25.7-33.7); MCHC 34.5 g/dl (32.0-35.9); MEAN CELL VOLUME 100.2 fl (80-96); MEAN PLT VOLUME 7.8 fl (7.5-11.1); NEUTROPHILS 56.3 % (42.8-82.8); PLATELET COUNT 307 K/MM3 (134-434); RDW 17.6 % (11.9-15.9); WHITE BLOOD COUNT 7.1 K/mm3 (4.0-10.0)
[2016-12-31 08:20] LABS: ANION GAP 8 (8-16); CALCIUM 8.7 mg/dL (8.5-10.1); CO2 27 mmol/L (21-32); CREATININE 0.8 mg/dL (0.7-1.3); GLUCOSE,RANDOM 89 mg/dL (74-106); MAGNESIUM 1.7 mg/dL (1.8-2.4); PHOSPHOROUS 2.8 mg/dL (2.5-4.9)
[2016-12-31] MEDS: AMINO ACIDS/PROTEIN HYDROLYS 30 ML LIQUID.PKT PO SCH ×2 (08:33→17:57)
[2016-12-31] MEDS ORDERED: PT OWN MED DRAWER 7, Y5N ONE (09:19)
[2016-12-31] MEDS: FAMOTIDINE 20 MG/50 ML IVPB 50 ML IVPB SCH (09:23)
[2016-12-31] MEDS: guaiFENesin/D-METHORPHAN HB 10 ML UNIT-DOSE CUPS PO SCH ×2 (09:24→21:07)
[2016-12-31] MEDS: HEPARIN NA (PORCINE) 5,000 UNITS/ML 1ML VIAL SQ SCH ×2 (09:25→21:07)
[2016-12-31] MEDS: ASPIRIN COATED 81 MG TABLET.EC PO SCH (09:28)
[2016-12-31] MEDS: ERTAPENEM SODIUM 1 GM in SODIUM CHLORIDE 50 ML IVPB SCH (09:37)
[2016-12-31] MEDS: HYDROXYUREA 500 MG CAPSULE PO SCH (09:38)
[2016-12-31] MEDS: METOPROLOL SUCCINATE 25 MG TAB.SR.24H (FP) PO SCH (09:38)
[2016-12-31] MEDS: FLUoxetine HCL 20 MG CAPSULE (FP) PO SCH (09:39)
--- NOTE | 2016-12-31 12:26 | PN ---
Progress Note (short form) - Note Progress Note: Renal follow up for ANSELMO Pt seen and examined at the bedside awake and alert reports poor apetite for lunch but ate breakfast well no fever, chills, cough Vital Signs Temperature 98.1 F 12/31/16 09:05 Pulse Rate 70 12/31/16 10:44 Respiratory Rate 18 12/31/16 09:05 Blood Pressure 128/75 12/31/16 09:05 O2 Sat by Pulse Oximetry (%) 93 L 12/31/16 10:44 Intake & Output 12/28/16 12/29/16 12/30/16 12/31/16 23:59 23:59 23:59 23:59 Intake Total 1972 1620 1695 920 Output Total 300 1110 400 Balance 7060 417 9945 920 Gen: NAD CVS: RRR, No M/R Lungs: CTA anterior exam Abd: soft NT/ND Ext: No edema, clubbing or cyanosis CBC, BMP 12/31/16 07:15 12/31/16 07:15 Laboratory Tests 12/31/16 07:15 Calcium 8.7 Phosphorus 2.8 Magnesium 1.7 L Current Medications Acetaminophen (Tylenol Oral Solution -) 650 mg PO Q6H PRN PRN Reason: FEVER Last Admin: 12/30/16 15:31 Dose: 650 mg Albuterol/Ipratropium (Duoneb -) 1 amp NEB Q4HPO [facility] Last Admin: 12/31/16 10:43 Dose: 1 amp Amino Acids (Prosource No Carb Liquid Pkt) 30 ml PO BID@0800,1730 [facility] Last Admin: 12/31/16 08:33 Dose: 30 ml Aspirin (Ecotrin -) 81 mg PO DAILY [facility] Last Admin: 12/31/16 09:28 Dose: 81 mg Atorvastatin Calcium (Lipitor -) 10 mg PO HS [facility] Last Admin: 12/30/16 21:28 Dose: 10 mg Fluoxetine HCl (Prozac -) 40 mg PO DAILY [facility] Last Admin: 12/31/16 09:39 Dose: 40 mg Guaifenesin (Robitussin Dm -) 10 ml PO BID [facility] Last Admin: 12/31/16 09:24 Dose: 10 ml Haloperidol (Haldol Injection (Fast Acting) -) 1 mg IM BID PRN PRN Reason: AGITATION Last Admin: 12/30/16 21:27 Dose: 1 mg Heparin Sodium (Porcine) (Heparin -) 5,000 unit SQ BID [facility] Last Admin: 12/31/16 09:25 Dose: 5,000 unit Hydroxyurea (Hydrea -) 500 mg PO DAILY [facility] Last Admin: 12/31/16 09:38 Dose: 500 mg Famotidine/Sodium Chloride (Pepcid 20 Mg Premixed Ivpb -) 50 mls @ 100 mls/hr IVPB DAILY [facility] Last Admin: 12/31/16 09:23 Dose: 100 mls/hr Potassium Chloride 10 meq/ (Sodium Chloride) 1,005 mls @ 60 mls/hr IVPB Q24H [facility] Last Admin: 12/30/16 21:24 Dose: 60 mls/hr Ertapenem 1 gm/ Sodium (Chloride) 50 mls @ 100 mls/hr IVPB DAILY [facility] PRN Reason: Protocol Last Admin: 12/31/16 09:37 Dose: 100 mls/hr Magnesium Sulfate 4 gm/ (Miscellaneous) 100 mls @ 100 mls/hr IVPB ONCE ONE Stop: 12/31/16 13:23 Metoprolol Succinate (Toprol Xl -) 12.5 mg PO DAILY [facility] Last Admin: 12/31/16 09:38 Dose: 12.5 mg Quetiapine Fumarate (Seroquel -) 25 mg PO TID [facility] Last Admin: 12/31/16 05:56 Dose: 25 mg A/P 81 year old Gentleman wit PMhx of HTN, HLD, CVA, TIA x 2, CKD (baseline Cr 1.6) who presented with Fever and found to have PNA with ANSELMO during hospital course. #Acute on Chronic Renal Insufficiency Renal function now improved to baseline pt appears evolemic d/c IVF today Trend BUN/cr oral intake as tolerated #PNA/Fever continue Abx as per ID supportive care #Hypertension Continue metoprolol BP is improved today Lee Ramirez DO
[2016-12-31] MEDS: HALOPERIDOL LACTATE 5 MG/ML IM PRN (13:24)
[2016-12-31] MEDS ORDERED: MAGNESIUM 4GM/H20 - 100 ML IVPB ONE (14:00)
--- NOTE | 2016-12-31 15:23 | PN ---
Progress Note (short form) - Note Progress Note: alert, nad ate breakfast well poor appetite for lunch still with some cough Vital Signs Period Temp Pulse Resp BP Sys/Peña Pulse Ox Last 24 Hr 97.6 F-98.1 F 64-85 18-18 128-141/68-81 93-95 cor-rrr lungs decreased bs at bases abd soft,nt ext no edema CBC, BMP 12/31/16 07:15 12/31/16 07:15 Microbiology 12/26/16 00:01 Blood - Peripheral Venous Blood Culture - Final NO GROWTH AFTER 5 DAYS INCUBATION 12/26/16 00:10 Blood - Peripheral Venous Blood Culture - Final NO GROWTH AFTER 5 DAYS INCUBATION 12/28/16 19:15 Blood - Peripheral Venous Blood Culture - Preliminary NO GROWTH OBTAINED AFTER 48 HOURS, INCUBATION TO CONTINUE FOR 3 DAYS. 12/28/16 19:00 Blood - Peripheral Venous Blood Culture - Preliminary NO GROWTH OBTAINED AFTER 48 HOURS, INCUBATION TO CONTINUE FOR 3 DAYS. 12/29/16 05:50 Urine For Antigen Detection Legionella Antigen - Final 12/25/16 00:45 Urine - Urine Clean Catch Urine Culture - Final NO GROWTH OBTAINED imp/reccd pneumonia penicillin allergy renal insuff- resolved ?aspiration/HAP cultures pending continue ertapenem day #3 Problem List - Problems (1) Pneumonia Code(s): J18.9 - PNEUMONIA, UNSPECIFIED ORGANISM Qualifiers: Pneumonia type: aspiration pneumonia Aspiration pneumonia type: unspecified Laterality: unspecified laterality Lung location: unspecified part of lung Qualified Code(s): J69.0 - Pneumonitis due to inhalation of food and vomit (2) Renal insufficiency Code(s): N28.9 - DISORDER OF KIDNEY AND URETER, UNSPECIFIED (3) Penicillin allergy Code(s): Z88.0 - ALLERGY STATUS TO PENICILLIN
--- NOTE | 2016-12-31 16:07 | PN ---
Progress Note (short form) - Note Progress Note: Current Medications Acetaminophen (Tylenol Oral Solution -) 650 mg PO Q6H PRN PRN Reason: FEVER Last Admin: 12/30/16 15:31 Dose: 650 mg Albuterol/Ipratropium (Duoneb -) 1 amp NEB Q4HPO [facility] Last Admin: 12/31/16 13:54 Dose: 1 amp Amino Acids (Prosource No Carb Liquid Pkt) 30 ml PO BID@0800,1730 [facility] Last Admin: 12/31/16 08:33 Dose: 30 ml Aspirin (Ecotrin -) 81 mg PO DAILY [facility] Last Admin: 12/31/16 09:28 Dose: 81 mg Atorvastatin Calcium (Lipitor -) 10 mg PO HS [facility] Last Admin: 12/30/16 21:28 Dose: 10 mg Fluoxetine HCl (Prozac -) 40 mg PO DAILY [facility] Last Admin: 12/31/16 09:39 Dose: 40 mg Guaifenesin (Robitussin Dm -) 10 ml PO BID [facility] Last Admin: 12/31/16 09:24 Dose: 10 ml Haloperidol (Haldol Injection (Fast Acting) -) 1 mg IM BID PRN PRN Reason: AGITATION Last Admin: 12/31/16 13:24 Dose: 1 mg Heparin Sodium (Porcine) (Heparin -) 5,000 unit SQ BID [facility] Last Admin: 12/31/16 09:25 Dose: 5,000 unit Hydroxyurea (Hydrea -) 500 mg PO DAILY [facility] Last Admin: 12/31/16 09:38 Dose: 500 mg Famotidine/Sodium Chloride (Pepcid 20 Mg Premixed Ivpb -) 50 mls @ 100 mls/hr IVPB DAILY [facility] Last Admin: 12/31/16 09:23 Dose: 100 mls/hr Ertapenem 1 gm/ Sodium (Chloride) 50 mls @ 100 mls/hr IVPB DAILY [facility] PRN Reason: Protocol Last Admin: 12/31/16 09:37 Dose: 100 mls/hr Magnesium Sulfate (Magnesium 4gm/H20 -) 100 mls @ 33.333 mls/hr IVPB ONCE ONE Stop: 12/31/16 16:59 Last Admin: 12/31/16 13:22 Dose: 33.333 mls/hr Metoprolol Succinate (Toprol Xl -) 12.5 mg PO DAILY [facility] Last Admin: 12/31/16 09:38 Dose: 12.5 mg Quetiapine Fumarate (Seroquel -) 50 mg PO BID [facility] Laboratory Results - last 24 hr 12/31/16 12/31/16 07:15 07:15 WBC 7.1 D RBC 3.67 L Hgb 12.7 Hct 36.7 MCV 100.2 H MCHC 34.5 RDW 17.6 H Plt Count 307 MPV 7.8 Neutrophils % 56.3 Lymphocytes % 24.4 Monocytes % 11.9 H Eosinophils % 6.5 H Basophils % 0.9 Sodium 144 Potassium 3.5 Chloride 109 H Carbon Dioxide 27 Anion Gap 8 BUN 14 D Creatinine 0.8 D Random Glucose 89 Calcium 8.7 Phosphorus 2.8 Magnesium 1.7 L Vital Signs Temp 98.1 F 12/31/16 14:27 Pulse 85 12/31/16 14:27 Resp 18 12/31/16 09:05 BP 132/71 12/31/16 14:27 Pulse Ox 93 L 12/31/16 10:44 Intake & Output 12/30/16 12/31/16 12/31/16 23:59 11:59 23:59 Intake Total 725 1020 1114 Balance 725 1020 1114 Intake: IV 720 360 NS W/KCL 10 meq. @ 60cc/ 720 360 hr IVPB 100 100 Oral 725 200 654 Other: Voiding Method External Catheter Incontinent Incontinent # Unmeasured Voids External Catheter 300 3 [place] 2 3 Bowel Movement Yes Yes No CC: episodes of agitation ``````````````` skin--good color eyes--midline neck--no stridor lungs--unlabored heart--Slow RR abd--soft, NT ext--no edema neuro--groggy, good eye contact, cognition is impoverished. Able to move all extrems ````````````````````` Summ > PNA--aspiration; RLL; CXR improved; cont Invanz as per ID > Dysphagia--s/p MBS, showing no gross aspiration on puree & thick liquids; will cont as per [employer] PROFESSOR [employer]GERY recommendations > renal insuff--normalized, renal function tests; US reveal medical renal Dz; no obstruction > Htn--in good range > thrombocythemia--essential?; cont Hydrea (keep plt under 400K) > Low Mag--replenish as needed > dementia--with depression & bouts of agitation. PLAN : has Prn Haldol IM for severe agitation; will up Seroquel to 50mg BID ```````````````````````````````````````````````````````````````````````````````` Misc: condition discussed with who was at bedside ~~~~~~~~~~~~~~~ Dr Galloway Problem List - Problems (1) Sepsis Code(s): A41.9 - SEPSIS, UNSPECIFIED ORGANISM Qualifiers: Sepsis type: sepsis due to unspecified organism Qualified Code(s): A41.9 - Sepsis, unspecified organism (2) Benign hypertensive renal disease Code(s): I12.9 - HYPERTENSIVE CHRONIC KIDNEY DISEASE W STG 1-4/UNSP CHR KDNY (3) History of cerebrovascular accident with residual deficit Code(s): I69.30 - UNSPECIFIED SEQUELAE OF CEREBRAL INFARCTION (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 Code(s): I69.991 - DYSPHAGIA FOLLOWING UNSPECIFIED CEREBROVASCULAR DISEASE (5) Bronchitis, chronic Code(s): J42 - UNSPECIFIED CHRONIC BRONCHITIS Qualifiers: Chronic bronchitis type: unspecified Qualified Code(s): J42 - Unspecified chronic bronchitis (6) Dementia with behavioral disturbance Code(s): F03.91 - UNSPECIFIED DEMENTIA WITH BEHAVIORAL DISTURBANCE Qualifiers : Dementia type: vascular dementia Qualified Code(s): F01.51 - Vascular dementia with behavioral disturbance (7) Essential thrombocythemia Code(s): D47.3 - ESSENTIAL (HEMORRHAGIC) THROMBOCYTHEMIA (8) Hyperuricemia Code(s): E79.0 - HYPERURICEMIA W/O SIGNS OF INFLAM ARTHRIT AND TOPHACEOUS DIS (9) Depression Code(s): F32.9 - MAJOR DEPRESSIVE DISORDER, SINGLE EPISODE, UNSPECIFIED Qualifiers: Depression Type: unspecified Qualified Code(s): F32.9 - Major depressive disorder, single episode, unspecified (10) Mobility impaired Code(s): Z74.09 - OTHER REDUCED MOBILITY (11) HLD (hyperlipidemia) Code(s): E78.5 - HYPERLIPIDEMIA, UNSPECIFIED Qualifiers: Hyperlipidemia type: pure hypercholesterolemia (12) Shoulder pain, bilateral Code(s): M25.511 - PAIN IN RIGHT SHOULDER M25.512 - PAIN IN LEFT SHOULDER Qualifiers: Chronicity: acute Qualified Code(s): M25.511 - Pain in right shoulder; M25.512 - Pain in left shoulder
[2016-12-31] MEDS: ATORVASTATIN CA 10 MG TABLET (FP) PO SCH (21:07)
[2017-01-01] MEDS: ALBUTEROL SO4 2.5/IPRATROPIUM 0.5 INH SOL 3 ML VIAL.NEB. NEB SCH ×6 (02:05→22:10)
[2017-01-01 08:45] LABS: ANION GAP 8 (8-16); CALCIUM 8.7 mg/dL (8.5-10.1); CO2 28 mmol/L (21-32); GLUCOSE,RANDOM 86 mg/dL (74-106)
[2017-01-01] MEDS ORDERED: PT OWN MED DRAWER 7, Y5N ONE ×2 (09:57→23:09)
--- NOTE | 2017-01-01 10:06 | PN ---
Progress Note, Physician Chief Complaint: The patient seen in his bed. Lethargic, poorly responsive. IV antibiotics infusing. Afebrile. Maintains good urine out put. - Current Medication List Current Medications: Active Medications Acetaminophen (Tylenol Oral Solution -) 650 mg PO Q6H PRN PRN Reason: FEVER Last Admin: 12/30/16 15:31 Dose: 650 mg Albuterol/Ipratropium (Duoneb -) 1 amp NEB Q4HPO [facility] Last Admin: 01/01/17 06:57 Dose: 1 amp Amino Acids (Prosource No Carb Liquid Pkt) 30 ml PO BID@0800,1730 [facility] Last Admin: 12/31/16 17:57 Dose: Not Given Aspirin (Ecotrin -) 81 mg PO DAILY [facility] Last Admin: 12/31/16 09:28 Dose: 81 mg Atorvastatin Calcium (Lipitor -) 10 mg PO HS [facility] Last Admin: 12/31/16 21:07 Dose: 10 mg Fluoxetine HCl (Prozac -) 40 mg PO DAILY [facility] Last Admin: 12/31/16 09:39 Dose: 40 mg Guaifenesin (Robitussin Dm -) 10 ml PO BID [facility] Last Admin: 12/31/16 21:07 Dose: 10 ml Haloperidol (Haldol Injection (Fast Acting) -) 1 mg IM BID PRN PRN Reason: AGITATION Last Admin: 12/31/16 13:24 Dose: 1 mg Heparin Sodium (Porcine) (Heparin -) 5,000 unit SQ BID [facility] Last Admin: 12/31/16 21:07 Dose: 5,000 unit Hydroxyurea (Hydrea -) 500 mg PO DAILY [facility] Last Admin: 12/31/16 09:38 Dose: 500 mg Famotidine/Sodium Chloride (Pepcid 20 Mg Premixed Ivpb -) 50 mls @ 100 mls/hr IVPB DAILY [facility] Last Admin: 12/31/16 09:23 Dose: 100 mls/hr Ertapenem 1 gm/ Sodium (Chloride) 50 mls @ 100 mls/hr IVPB DAILY [facility] PRN Reason: Protocol Last Admin: 12/31/16 09:37 Dose: 100 mls/hr Metoprolol Succinate (Toprol Xl -) 12.5 mg PO DAILY [facility] Last Admin: 12/31/16 09:38 Dose: 12.5 mg Quetiapine Fumarate (Seroquel -) 50 mg PO BID [facility] Last Admin: 12/31/16 21:07 Dose: 50 mg - Objective Vital Signs: Vital Signs Temperature 98.5 F 01/01/17 05:52 Pulse Rate 72 01/01/17 05:52 Respiratory Rate 20 01/01/17 05:52 Blood Pressure 118/76 01/01/17 05:52 O2 Sat by Pulse Oximetry (%) 96 12/31/16 20:23 Constitutional: Yes: Calm HENT: Yes: Normocephalic Neck: Yes: Trachea Midline Cardiovascular: Yes: S1, S2 Respiratory: Yes: CTA Bilaterally Gastrointestinal: Yes: Normal Bowel Sounds, Soft Neurological: Yes: Aphasia, Confusion, Unresponsive Labs: CBC, BMP 12/31/16 07:15 01/01/17 07:00 INR, PTT INR 1.21 (0.82-1.09) H 12/26/16 00:05 Problem List - Problems (1) Benign hypertensive renal disease Code(s): I12.9 - HYPERTENSIVE CHRONIC KIDNEY DISEASE W STG 1-4/UNSP CHR KDNY (2) Dementia with behavioral disturbance Code(s): F03.91 - UNSPECIFIED DEMENTIA WITH BEHAVIORAL DISTURBANCE Qualifiers : Dementia type: vascular dementia Qualified Code(s): F01.51 - Vascular dementia with behavioral disturbance (3) Fever Code(s): R50.9 - FEVER, UNSPECIFIED Qualifiers: Fever type: unspecified Qualified Code(s): R50.9 - Fever, unspecified (4) Pneumonia Code(s): J18.9 - PNEUMONIA, UNSPECIFIED ORGANISM Qualifiers: Pneumonia type: aspiration pneumonia Aspiration pneumonia type: unspecified Laterality: unspecified laterality Lung location: unspecified part of lung Qualified Code(s): J69.0 - Pneumonitis due to inhalation of food and vomit (5) Acute renal insufficiency Code(s): N28.9 - DISORDER OF KIDNEY AND URETER, UNSPECIFIED (6) CVA (cerebral vascular accident) Code(s): I63.9 - CEREBRAL INFARCTION, UNSPECIFIED Qualifiers: CVA mechanism: unspecified Qualified Code(s): I63.9 - Cerebral infarction, unspecified (7) Confusion state Code(s): F44.89 - OTHER DISSOCIATIVE AND CONVERSION DISORDERS (8) HLD (hyperlipidemia) Code(s): E78.5 - HYPERLIPIDEMIA, UNSPECIFIED Qualifiers: Hyperlipidemia type: pure hypercholesterolemia (9) HTN (hypertension) Code(s): I10 - ESSENTIAL (PRIMARY) HYPERTENSION Qualifiers: Hypertension type: essential hypertension Qualified Code(s): I10 - Essential (primary) hypertension Assessment/Plan 81 y/o male with Hypertension, TIA, CVA, HLD, Psychiatric disorders, admitted with Fever, Pneumonia and ANSELMO. The renal functions have resolved slowly to his baseline. Mental status reportedly fluctuant, between agitation and unresponsiveness. Maintains good urine output. Will maintain hydration and euvolemia. IV antibiotics to continue. Britt Akers MD
[2017-01-01] MEDS: FAMOTIDINE 20 MG/50 ML IVPB 50 ML IVPB SCH (10:18)
[2017-01-01] MEDS: guaiFENesin/D-METHORPHAN HB 10 ML UNIT-DOSE CUPS PO SCH ×2 (10:18→21:01)
[2017-01-01] MEDS: HEPARIN NA (PORCINE) 5,000 UNITS/ML 1ML VIAL SQ SCH ×2 (10:19→21:01)
[2017-01-01] MEDS: AMINO ACIDS/PROTEIN HYDROLYS 30 ML LIQUID.PKT PO SCH ×2 (10:19→17:57)
[2017-01-01] MEDS: ASPIRIN COATED 81 MG TABLET.EC PO SCH (10:19)
[2017-01-01] MEDS: QUEtiapine FUMARATE 25 MG TABLET (FP) PO SCH (10:20)
[2017-01-01] MEDS: ERTAPENEM SODIUM 1 GM in SODIUM CHLORIDE 50 ML IVPB SCH (10:20)
[2017-01-01] MEDS: METOPROLOL SUCCINATE 25 MG TAB.SR.24H (FP) PO SCH (10:21)
--- NOTE | 2017-01-01 10:50 | PN ---
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 Pt is on Pureed diet and honey thick liquid. Pt can be upgraded to nectar thick liquid for improved hydration. Arousable but not initiating speech, which occurs intermittently.
[2017-01-01] MEDS: ACETAMINOPHEN 650 MG/20.3 ML ORAL SOLUTION (CUPS) PO PRN (11:21)
--- NOTE | 2017-01-01 11:23 | PN ---
Progress Note, Physician Chief Complaint: ID Ertepenem Resting NAD - Current Medication List Current Medications: Active Medications Acetaminophen (Tylenol Oral Solution -) 650 mg PO Q6H PRN PRN Reason: FEVER Last Admin: 12/30/16 15:31 Dose: 650 mg Albuterol/Ipratropium (Duoneb -) 1 amp NEB Q4HPO [facility] Last Admin: 01/01/17 10:20 Dose: 1 amp Amino Acids (Prosource No Carb Liquid Pkt) 30 ml PO BID@0800,1730 [facility] Last Admin: 01/01/17 10:19 Dose: Not Given Aspirin (Ecotrin -) 81 mg PO DAILY [facility] Last Admin: 01/01/17 10:19 Dose: 81 mg Atorvastatin Calcium (Lipitor -) 10 mg PO HS [facility] Last Admin: 12/31/16 21:07 Dose: 10 mg Fluoxetine HCl (Prozac -) 40 mg PO DAILY [facility] Last Admin: 12/31/16 09:39 Dose: 40 mg Guaifenesin (Robitussin Dm -) 10 ml PO BID [facility] Last Admin: 01/01/17 10:18 Dose: 10 ml Haloperidol (Haldol Injection (Fast Acting) -) 1 mg IM BID PRN PRN Reason: AGITATION Last Admin: 12/31/16 13:24 Dose: 1 mg Heparin Sodium (Porcine) (Heparin -) 5,000 unit SQ BID [facility] Last Admin: 01/01/17 10:19 Dose: 5,000 unit Hydroxyurea (Hydrea -) 500 mg PO DAILY [facility] Last Admin: 12/31/16 09:38 Dose: 500 mg Famotidine/Sodium Chloride (Pepcid 20 Mg Premixed Ivpb -) 50 mls @ 100 mls/hr IVPB DAILY [facility] Last Admin: 01/01/17 10:18 Dose: 100 mls/hr Ertapenem 1 gm/ Sodium (Chloride) 50 mls @ 100 mls/hr IVPB DAILY [facility] PRN Reason: Protocol Last Admin: 01/01/17 10:20 Dose: 100 mls/hr Metoprolol Succinate (Toprol Xl -) 12.5 mg PO DAILY [facility] Last Admin: 01/01/17 10:21 Dose: 12.5 mg Quetiapine Fumarate (Seroquel -) 50 mg PO BID [facility] Last Admin: 01/01/17 10:20 Dose: 50 mg - Objective Vital Signs: Vital Signs Temperature 98.5 F 01/01/17 05:52 Pulse Rate 72 01/01/17 05:52 Respiratory Rate 20 01/01/17 05:52 Blood Pressure 118/76 01/01/17 05:52 O2 Sat by Pulse Oximetry (%) 96 12/31/16 20:23 Constitutional: Yes: Well Nourished, No Distress HENT: Yes: WNL, Atraumatic Neck: Yes: WNL, Supple Cardiovascular: Yes: S1, S2 Respiratory: Yes: WNL, Regular, CTA Bilaterally Gastrointestinal: Yes: WNL, Normal Bowel Sounds, Soft Labs: CBC, BMP 12/31/16 07:15 01/01/17 07:00 INR, PTT INR 1.21 (0.82-1.09) H 12/26/16 00:05 Assessment/Plan Microbiology 12/29/16 05:50 Urine For Antigen Detection Legionella Antigen - Final 12/26/16 00:10 Blood - Peripheral Venous Blood Culture - Final NO GROWTH AFTER 5 DAYS INCUBATION 12/26/16 00:01 Blood - Peripheral Venous Blood Culture - Final NO GROWTH AFTER 5 DAYS INCUBATION 12/25/16 00:45 Urine - Urine Clean Catch Urine Culture - Final NO GROWTH OBTAINED 12/28/16 19:15 Blood - Peripheral Venous Blood Culture - Preliminary NO GROWTH OBTAINED AFTER 72 HOURS, INCUBATION TO CONTINUE FOR 2 DAYS. 12/28/16 19:00 Blood - Peripheral Venous Blood Culture - Preliminary NO GROWTH OBTAINED AFTER 72 HOURS, INCUBATION TO CONTINUE FOR 2 DAYS. Laboratory Tests 12/31/16 01/01/17 07:15 07:00 WBC 7.1 D Hgb 12.7 Hct 36.7 Plt Count 307 BUN 17 D Creatinine 1.0 D Assessment Aspiration PNA Day 4 Ertepenem Plan Antibiotics can be stopped after tomorrow dose Ritu ÁLVAREZ
[2017-01-01] MEDS: FLUoxetine HCL 20 MG CAPSULE (FP) PO SCH (11:28)
[2017-01-01] MEDS: HYDROXYUREA 500 MG CAPSULE PO SCH (11:28)
[2017-01-01] MEDS ORDERED: ACETAMINOPHEN 325 MG TABLET (FP) PO PRN (14:34)
--- NOTE | 2017-01-01 14:41 | PN ---
Problem List - Problems (1) Sepsis Code(s): A41.9 - SEPSIS, UNSPECIFIED ORGANISM Qualifiers: Sepsis type: sepsis due to unspecified organism Qualified Code(s): A41.9 - Sepsis, unspecified organism (2) Benign hypertensive renal disease Code(s): I12.9 - HYPERTENSIVE CHRONIC KIDNEY DISEASE W STG 1-4/UNSP CHR KDNY (3) History of cerebrovascular accident with residual deficit Code(s): I69.30 - UNSPECIFIED SEQUELAE OF CEREBRAL INFARCTION (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 Code(s): I69.991 - DYSPHAGIA FOLLOWING UNSPECIFIED CEREBROVASCULAR DISEASE (5) Bronchitis, chronic Code(s): J42 - UNSPECIFIED CHRONIC BRONCHITIS Qualifiers: Chronic bronchitis type: unspecified Qualified Code(s): J42 - Unspecified chronic bronchitis (6) Dementia with behavioral disturbance Code(s): F03.91 - UNSPECIFIED DEMENTIA WITH BEHAVIORAL DISTURBANCE Qualifiers : Dementia type: vascular dementia Qualified Code(s): F01.51 - Vascular dementia with behavioral disturbance (7) Essential thrombocythemia Code(s): D47.3 - ESSENTIAL (HEMORRHAGIC) THROMBOCYTHEMIA (8) Hyperuricemia Code(s): E79.0 - HYPERURICEMIA W/O SIGNS OF INFLAM ARTHRIT AND TOPHACEOUS DIS (9) Depression Code(s): F32.9 - MAJOR DEPRESSIVE DISORDER, SINGLE EPISODE, UNSPECIFIED Qualifiers: Depression Type: unspecified Qualified Code(s): F32.9 - Major depressive disorder, single episode, unspecified (10) Mobility impaired Code(s): Z74.09 - OTHER REDUCED MOBILITY (11) HLD (hyperlipidemia) Code(s): E78.5 - HYPERLIPIDEMIA, UNSPECIFIED Qualifiers: Hyperlipidemia type: pure hypercholesterolemia (12) Shoulder pain, bilateral Code(s): M25.511 - PAIN IN RIGHT SHOULDER M25.512 - PAIN IN LEFT SHOULDER Qualifiers: Chronicity: acute Qualified Code(s): M25.511 - Pain in right shoulder; M25.512 - Pain in left shoulder
--- NOTE | 2017-01-01 14:50 | PN ---
Progress Note (short form) - Note Progress Note: Current Medications Acetaminophen (Tylenol -) 650 mg PO Q6H PRN PRN Reason: FEVER OR PAIN Albuterol/Ipratropium (Duoneb -) 1 amp NEB Q4HPO [facility] Last Admin: 01/01/17 14:18 Dose: 1 amp Amino Acids (Prosource No Carb Liquid Pkt) 30 ml PO BID@0800,1730 [facility] Last Admin: 01/01/17 10:19 Dose: Not Given Aspirin (Ecotrin -) 81 mg PO DAILY [facility] Last Admin: 01/01/17 10:19 Dose: 81 mg Atorvastatin Calcium (Lipitor -) 10 mg PO HS [facility] Last Admin: 12/31/16 21:07 Dose: 10 mg Fluoxetine HCl (Prozac -) 40 mg PO DAILY [facility] Last Admin: 01/01/17 11:28 Dose: 40 mg Guaifenesin (Robitussin Dm -) 10 ml PO BID [facility] Last Admin: 01/01/17 10:18 Dose: 10 ml Haloperidol (Haldol Injection (Fast Acting) -) 1 mg IM BID PRN PRN Reason: AGITATION Last Admin: 12/31/16 13:24 Dose: 1 mg Heparin Sodium (Porcine) (Heparin -) 5,000 unit SQ BID [facility] Last Admin: 01/01/17 10:19 Dose: 5,000 unit Hydroxyurea (Hydrea -) 500 mg PO DAILY [facility] Last Admin: 01/01/17 11:28 Dose: 500 mg Famotidine/Sodium Chloride (Pepcid 20 Mg Premixed Ivpb -) 50 mls @ 100 mls/hr IVPB DAILY [facility] Last Admin: 01/01/17 10:18 Dose: 100 mls/hr Ertapenem 1 gm/ Sodium (Chloride) 50 mls @ 100 mls/hr IVPB DAILY [facility] PRN Reason: Protocol Last Admin: 01/01/17 10:20 Dose: 100 mls/hr Metoprolol Succinate (Toprol Xl -) 12.5 mg PO DAILY [facility] Last Admin: 01/01/17 10:21 Dose: 12.5 mg Quetiapine Fumarate (Seroquel -) 50 mg PO HS [facility] Quetiapine Fumarate (Seroquel -) 25 mg PO BID [facility] Laboratory Results - last 24 hr 01/01/17 07:00 Sodium 144 Potassium 3.7 Chloride 108 H Carbon Dioxide 28 Anion Gap 8 BUN 17 D Creatinine 1.0 D Random Glucose 86 Calcium 8.7 Vital Signs Temperature 98.6 F 01/01/17 14:31 Pulse Rate 73 01/01/17 14:31 Respiratory Rate 20 01/01/17 05:52 Blood Pressure 142/72 01/01/17 14:31 O2 Sat by Pulse Oximetry (%) 96 12/31/16 20:23 CC: drowsy today ``````````````` skin--good color; IV site okay eyes--midline neck--no stridor lungs--unlabored heart--Slow RR abd--soft, NT ext--no edema neuro--rousable, good eye contact, cognition is impoverished. Able to move all extrems ````````````````````` Summ > PNA--aspiration; RLL; CXR improved; cont Invanz x 1 other day > Dysphagia--s/p MBS, showing no gross aspiration on puree & thick liquids; will cont as per [employer] recommendations > renal insuff--normalized, renal function tests; US reveal medical renal Dz; no obstruction > Htn--in good range > thrombocythemia--essential?; cont Hydrea (keep plt under 400K) > Low Mag--replenish as needed; recheck > dementia--with depression & bouts of agitation. PLAN : appears drowsy today; has Prn Haldol IM for severe agitation; will adjust seroquel ```````````````````````````````````````````````````````````````````````````````` Misc: condition discussed with who was at bedside ~~~~~~~~~~~~~~~ Dr Galloway Problem List - Problems (1) Sepsis Code(s): A41.9 - SEPSIS, UNSPECIFIED ORGANISM Qualifiers: Sepsis type: sepsis due to unspecified organism Qualified Code(s): A41.9 - Sepsis, unspecified organism (2) Benign hypertensive renal disease Code(s): I12.9 - HYPERTENSIVE CHRONIC KIDNEY DISEASE W STG 1-4/UNSP CHR KDNY (3) History of cerebrovascular accident with residual deficit Code(s): I69.30 - UNSPECIFIED SEQUELAE OF CEREBRAL INFARCTION (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 Code(s): I69.991 - DYSPHAGIA FOLLOWING UNSPECIFIED CEREBROVASCULAR DISEASE (5) Bronchitis, chronic Code(s): J42 - UNSPECIFIED CHRONIC BRONCHITIS Qualifiers: Chronic bronchitis type: unspecified Qualified Code(s): J42 - Unspecified chronic bronchitis (6) Dementia with behavioral disturbance Code(s): F03.91 - UNSPECIFIED DEMENTIA WITH BEHAVIORAL DISTURBANCE Qualifiers : Dementia type: vascular dementia Qualified Code(s): F01.51 - Vascular dementia with behavioral disturbance (7) Essential thrombocythemia Code(s): D47.3 - ESSENTIAL (HEMORRHAGIC) THROMBOCYTHEMIA (8) Hyperuricemia Code(s): E79.0 - HYPERURICEMIA W/O SIGNS OF INFLAM ARTHRIT AND TOPHACEOUS DIS (9) Depression Code(s): F32.9 - MAJOR DEPRESSIVE DISORDER, SINGLE EPISODE, UNSPECIFIED Qualifiers: Depression Type: unspecified Qualified Code(s): F32.9 - Major depressive disorder, single episode, unspecified (10) Mobility impaired Code(s): Z74.09 - OTHER REDUCED MOBILITY (11) HLD (hyperlipidemia) Code(s): E78.5 - HYPERLIPIDEMIA, UNSPECIFIED Qualifiers: Hyperlipidemia type: pure hypercholesterolemia (12) Shoulder pain, bilateral Code(s): M25.511 - PAIN IN RIGHT SHOULDER M25.512 - PAIN IN LEFT SHOULDER Qualifiers: Chronicity: acute Qualified Code(s): M25.511 - Pain in right shoulder; M25.512 - Pain in left shoulder
[2017-01-01] MEDS ORDERED: QUEtiapine FUMARATE 25 MG TABLET (FP) ONE (20:57)
[2017-01-01] MEDS: ATORVASTATIN CA 10 MG TABLET (FP) PO SCH (21:01)
[2017-01-01] MEDS ORDERED: QUEtiapine FUMARATE 50 MG TABLET PO SCH (22:00)
[2017-01-02] MEDS: ALBUTEROL SO4 2.5/IPRATROPIUM 0.5 INH SOL 3 ML VIAL.NEB. NEB SCH ×4 (02:25→14:10)
[2017-01-02] MEDS: AMINO ACIDS/PROTEIN HYDROLYS 30 ML LIQUID.PKT PO SCH (08:05)
[2017-01-02 08:38] LABS: ANION GAP 9 (8-16); CO2 29 mmol/L (21-32); CREATININE 0.9 mg/dL (0.7-1.3); GLUCOSE,RANDOM 79 mg/dL (74-106)
[2017-01-02] MEDS ORDERED: PT OWN MED DRAWER 7, Y5N ONE ×2 (08:48→08:58)
--- NOTE | 2017-01-02 08:49 | PN ---
Progress Note, Physician Chief Complaint: ID Ertepenem day 5 Rx In bed comfortable - Current Medication List Current Medications: Active Medications Acetaminophen (Tylenol -) 650 mg PO Q6H PRN PRN Reason: FEVER OR PAIN Last Admin: 01/01/17 17:56 Dose: 650 mg Albuterol/Ipratropium (Duoneb -) 1 amp NEB Q4HPO [facility] Last Admin: 01/02/17 06:40 Dose: 1 amp Amino Acids (Prosource No Carb Liquid Pkt) 30 ml PO BID@0800,1730 [facility] Last Admin: 01/02/17 08:05 Dose: 30 ml Aspirin (Ecotrin -) 81 mg PO DAILY [facility] Last Admin: 01/01/17 10:19 Dose: 81 mg Atorvastatin Calcium (Lipitor -) 10 mg PO HS [facility] Last Admin: 01/01/17 21:01 Dose: 10 mg Fluoxetine HCl (Prozac -) 40 mg PO DAILY [facility] Last Admin: 01/01/17 11:28 Dose: 40 mg Guaifenesin (Robitussin Dm -) 10 ml PO BID [facility] Last Admin: 01/01/17 21:01 Dose: 10 ml Haloperidol (Haldol Injection (Fast Acting) -) 1 mg IM BID PRN PRN Reason: AGITATION Last Admin: 12/31/16 13:24 Dose: 1 mg Heparin Sodium (Porcine) (Heparin -) 5,000 unit SQ BID [facility] Last Admin: 01/01/17 21:01 Dose: 5,000 unit Hydroxyurea (Hydrea -) 500 mg PO DAILY [facility] Last Admin: 01/01/17 11:28 Dose: 500 mg Famotidine/Sodium Chloride (Pepcid 20 Mg Premixed Ivpb -) 50 mls @ 100 mls/hr IVPB DAILY [facility] Last Admin: 01/01/17 10:18 Dose: 100 mls/hr Ertapenem 1 gm/ Sodium (Chloride) 50 mls @ 100 mls/hr IVPB DAILY [facility] PRN Reason: Protocol Last Admin: 01/01/17 10:20 Dose: 100 mls/hr Metoprolol Succinate (Toprol Xl -) 12.5 mg PO DAILY [facility] Last Admin: 01/01/17 10:21 Dose: 12.5 mg Quetiapine Fumarate (Seroquel -) 50 mg PO HS [facility] Last Admin: 01/01/17 21:05 Dose: 50 mg Quetiapine Fumarate (Seroquel -) 25 mg PO BID [facility] - Objective Vital Signs: Vital Signs Temperature 98.0 F 01/02/17 05:41 Pulse Rate 77 01/02/17 05:41 Respiratory Rate 20 01/02/17 05:41 Blood Pressure 138/95 01/02/17 05:41 O2 Sat by Pulse Oximetry (%) 96 01/01/17 21:00 Constitutional: Yes: Well Nourished, No Distress HENT: Yes: WNL, Atraumatic Neck: Yes: WNL, Supple Cardiovascular: Yes: Regular Rate and Rhythm, S1, S2 Respiratory: Yes: WNL, Regular, CTA Bilaterally, Diminished Gastrointestinal: Yes: WNL, Normal Bowel Sounds, Soft. No: Tenderness Labs: CBC, BMP 12/31/16 07:15 01/02/17 07:30 INR, PTT INR 1.21 (0.82-1.09) H 12/26/16 00:05 Assessment/Plan Microbiology 12/29/16 05:50 Urine For Antigen Detection Legionella Antigen - Final 12/26/16 00:10 Blood - Peripheral Venous Blood Culture - Final NO GROWTH AFTER 5 DAYS INCUBATION 12/26/16 00:01 Blood - Peripheral Venous Blood Culture - Final NO GROWTH AFTER 5 DAYS INCUBATION 12/25/16 00:45 Urine - Urine Clean Catch Urine Culture - Final NO GROWTH OBTAINED 12/28/16 19:15 Blood - Peripheral Venous Blood Culture - Preliminary NO GROWTH OBTAINED AFTER 96 HOURS, INCUBATION TO CONTINUE FOR 1 DAYS. 12/28/16 19:00 Blood - Peripheral Venous Blood Culture - Preliminary NO GROWTH OBTAINED AFTER 96 HOURS, INCUBATION TO CONTINUE FOR 1 DAYS. Laboratory Tests 12/31/16 01/02/17 07:15 07:30 WBC 7.1 D Hgb 12.7 Hct 36.7 Plt Count 307 BUN 16 Creatinine 0.9 Assessment Pneumonia ? ( aspiiration) Empiric therapy Plan Plan as outlined Kindly recall as needed Ritu ÁLVAREZ
[2017-01-02 08:53] LABS: CALCIUM 9.1 mg/dL (8.5-10.1)
[2017-01-02] MEDS: FAMOTIDINE 20 MG/50 ML IVPB 50 ML IVPB SCH ×2 (09:02→10:18)
[2017-01-02] MEDS: METOPROLOL SUCCINATE 25 MG TAB.SR.24H (FP) PO SCH (09:02)
[2017-01-02] MEDS: ASPIRIN COATED 81 MG TABLET.EC PO SCH (09:03)
[2017-01-02] MEDS: guaiFENesin/D-METHORPHAN HB 10 ML UNIT-DOSE CUPS PO SCH (09:03)
[2017-01-02] MEDS: FLUoxetine HCL 20 MG CAPSULE (FP) PO SCH (09:03)
[2017-01-02] MEDS: HEPARIN NA (PORCINE) 5,000 UNITS/ML 1ML VIAL SQ SCH (09:03)
[2017-01-02] MEDS: HYDROXYUREA 500 MG CAPSULE PO SCH (09:04)
[2017-01-02] MEDS ORDERED: QUEtiapine FUMARATE 25 MG TABLET (FP) PO SCH (10:00)
[2017-01-02] MEDS: ERTAPENEM SODIUM 1 GM in SODIUM CHLORIDE 50 ML IVPB SCH (10:18)
--- NOTE | 2017-01-02 13:18 | DS ---
Physical Examination Vital Signs: Vital Signs Temperature 98.3 F 01/02/17 09:21 Pulse Rate 67 01/02/17 09:21 Respiratory Rate 20 01/02/17 09:21 Blood Pressure 154/93 01/02/17 09:21 O2 Sat by Pulse Oximetry (%) 94 L 01/02/17 09:00 Constitutional: Yes: Well Nourished, No Distress Eyes: Yes: Conjunctiva Clear Cardiovascular: Yes: Regular Rate and Rhythm Respiratory: Yes: Regular Gastrointestinal: Yes: Normal Bowel Sounds, Soft Edema: No Integumentary: Yes: WNL Neurological: Yes: Alert ...Motor Strength: WNL Psychiatric: Yes: Other (confused) Labs: CBC, BMP 12/31/16 07:15 01/02/17 07:30 Discharge Summary Reason For Visit: (+) FEVER Current Active Problems Benign hypertensive renal disease (Acute) Bronchitis, chronic (Acute) Dementia with behavioral disturbance (Acute) Dysphagia as late effect of cerebrovascular disease (Acute) Essential thrombocythemia (Acute) Fever (Acute) History of cerebrovascular accident with residual deficit (Acute) Hyperuricemia (Acute) Mobility impaired (Acute) Penicillin allergy (Acute) Pneumonia (Acute) Renal failure (Acute) Renal insufficiency (Acute) Shoulder pain, bilateral (Acute) Procedures: Principal: modified barium swallow Hospital Course: admitted for fever, cough malaise. initial CXR showed no infiltrates, the UA was WNL. he was started on IV Abs for presumed aspiration. His fever resolved and WBC started to [place]mal[place], but he again spiked a Temp in the days that followed. ID was called and regimen was changed. CXR then revealed a RLL infiltrate suggesting aspiration. His Creat became acutely elevated but then normalized prior to d/c. He had episodes of agitation (as he did in previous stays) and was Tx accordingly. He was seen by DYER ASSISTANT who did a MBS and concluded that he can take purred foods with thickened liquids. He will cont his usual meds and advised to call if he re-develops more coughing. Condition: Improved - Instructions Diet, Activity, Other Instructions: thicken all liquids to honey; soft foods. Allow time to swallow; feed upright; no straws. Try not to use Haloperidol (HALDOL) for agitation. Use new medication (seroquel ) at night Use Xanax only if very agitated. Referrals: Manuel Galloway MD [Primary Care Provider] - Disposition: [facility]/HOME HEALTH CARE - Home Medications Comprehensive Discharge Medication List: Ambulatory Orders Allopurinol [Zyloprim -] 300 mg PO DAILY 09/24/14 Atorvastatin Ca [Lipitor] 20 mg PO HS 09/24/14 Pantoprazole Sodium [Protonix -] 40 mg PO DAILY #14 tablet.ec 07/22/16 Aspirin [ASA -] 81 mg PO DAILY 08/02/16 Atenolol [Tenormin] 50 mg PO DAILY 08/02/16 Fluoxetine HCl Liquid [Prozac 20mg/5mL Oral Solution -] 60 mg PO DAILY 08/02/16 Albuterol 0.083% Nebulizer Nohemi [Ventolin 0.083% Nebulizer Soln -] 1 amp NEB Q6H PRN #0 amp 08/16/16 Polyethylene Glycol 3350 [Miralax 119 gm Btl -] 17 gm PO DAILY bottle 08/16/16 Alprazolam 1 mg PO DAILY PRN #30 tablet MDD 1 01/02/17 Hydroxyurea [Hydrea 500Mg Capsule -] 500 mg PO DAILY #30 cap MDD 1 01/02/17 Quetiapine Fumarate [Quetiapine Fumarate ER] 50 mg PO HS #30 tab.er.24h
--- NOTE | 2017-01-02 13:23 | DS ---
Physical Examination Vital Signs: Vital Signs Temperature 98.3 F 01/02/17 09:21 Pulse Rate 67 01/02/17 09:21 Respiratory Rate 20 01/02/17 09:21 Blood Pressure 154/93 01/02/17 09:21 O2 Sat by Pulse Oximetry (%) 94 L 01/02/17 09:00 Labs: CBC, BMP 12/31/16 07:15 01/02/17 07:30 Discharge Summary Reason For Visit: (+) FEVER Current Active Problems Benign hypertensive renal disease (Acute) Bronchitis, chronic (Acute) Dementia with behavioral disturbance (Acute) Dysphagia as late effect of cerebrovascular disease (Acute) Essential thrombocythemia (Acute) Fever (Acute) History of cerebrovascular accident with residual deficit (Acute) Hyperuricemia (Acute) Mobility impaired (Acute) Penicillin allergy (Acute) Pneumonia (Acute) Renal failure (Acute) Renal insufficiency (Acute) Shoulder pain, bilateral (Acute) Condition: Improved - Instructions Diet, Activity, Other Instructions: thicken all liquids to honey; soft foods. Allow time to swallow; feed upright; no straws. Try not to use Haloperidol (HALDOL) for agitation. Use new medication (seroquel ) at night Use Xanax only if very agitated. Referrals: Manuel Galloway MD [Primary Care Provider] - Disposition: [facility]/HOME HEALTH CARE - Home Medications Comprehensive Discharge Medication List: Ambulatory Orders Allopurinol [Zyloprim -] 300 mg PO DAILY 09/24/14 Atorvastatin Ca [Lipitor] 20 mg PO HS 09/24/14 Pantoprazole Sodium [Protonix -] 40 mg PO DAILY #14 tablet.ec 07/22/16 Aspirin [ASA -] 81 mg PO DAILY 08/02/16 Atenolol [Tenormin] 50 mg PO DAILY 08/02/16 Fluoxetine HCl Liquid [Prozac 20mg/5mL Oral Solution -] 60 mg PO DAILY 08/02/16 Albuterol 0.083% Nebulizer Nohemi [Ventolin 0.083% Nebulizer Soln -] 1 amp NEB Q6H PRN #0 amp 08/16/16 Polyethylene Glycol 3350 [Miralax 119 gm Btl -] 17 gm PO DAILY bottle 08/16/16 Alprazolam 1 mg PO DAILY PRN #30 tablet MDD 1 01/02/17 Hydroxyurea [Hydrea 500Mg Capsule -] 500 mg PO DAILY #30 cap MDD 1 01/02/17 Quetiapine Fumarate [Quetiapine Fumarate ER] 50 mg PO HS #30 tab.er.24h Quality Measures-Exclusions - Pneumonia Reason PT evaluation not done: Test/procedure in Progress (had bedside PT) - SCIP Reason Abernathy catheter not removed by post-op day 2: Fluid volume imbalance
[2017-01-02 13:36] VITALS: BP 146/87; PULSE 68; TEMP 99
== END 2017-01-02 15:42 | disposition home health service (06) | DRG 178 ==
LOC: JER 23:15 → JERBED 12-26 01:19 → UNDOADMIN 12-26 01:25 → J6S 12-26 11:32
PROVIDERS: ADMIT Internal Medicine; ATTEND Internal Medicine
DX: J69.0 Pneumonitis due to inhalation of food and vomit (principal); F03.91 Unspecified dementia, unspecified severity, with behavioral disturbance; N17.9 Acute kidney failure, unspecified; D47.3 Essential (hemorrhagic) thrombocythemia; E83.42 Hypomagnesemia; E78.5 Hyperlipidemia, unspecified; F32.9 Major depressive disorder, single episode, unspecified; I12.9 Hypertensive chronic kidney disease with stage 1 through stage 4 chronic kidney disease, or unspecified chronic kidney disease; N18.9 Chronic kidney disease, unspecified; M25.511 Pain in right shoulder; M25.512 Pain in left shoulder; Z88.0 Allergy status to penicillin; D72.829 Elevated white blood cell count, unspecified; R00.1 Bradycardia, unspecified; I69.391 Dysphagia following cerebral infarction; R13.10 Dysphagia, unspecified
CPT/HCPCS: 36415; 36600; 70450-TC; 71010-TC; 74230-TC; 76775-TC; 76856-TC; 80048; 80053; 81003; 82533; 82550; 82570; 82803; 83605; 83735; 84100; 84156; 84300; 84443; 84484; 84540; 84550; 85025; 85027; 85610; 85651; 86850; 86900; 86901; 87040; 87086; 87205; 87899; 92611-GN; 93005; 93010; 94640; 97116-GP; 97161-GP; 99284-25; J1644; J8999

== ENCOUNTER 2017-05-13 12:28 | Inpatient (IN) | payer OTHER, BC ==
[2017-05-13 14:20] LABS: BASOPHIL 1.1 % (0-2.0); EOSINOPHIL 8.7 % (0-4.5); MCH 37.6 pg (25.7-33.7); MCHC 33.7 g/dl (32.0-35.9); MEAN CELL VOLUME 111.4 fl (80-96); MEAN PLT VOLUME 7.5 fl (7.5-11.1); NEUTROPHILS 57.1 % (42.8-82.8); PLATELET COUNT 361 K/MM3 (134-434); RDW 14.8 % (11.9-15.9); WHITE BLOOD COUNT 8.5 K/mm3 (4.0-10.0)
[2017-05-13 14:41] LABS: ALBUMIN 2.9 g/dl (3.4-5.0); ALK PHOS 65 U/L (45-117); ANION GAP 5 (8-16); BILIRUBIN,TOTAL 0.5 mg/dL (0.2-1.0); CALCIUM 8.6 mg/dL (8.5-10.1); CO2 29 mmol/L (21-32); GLUCOSE,RANDOM 86 mg/dL (74-106); SGPT/ALT 25 U/L (12-78); TOT PROT 6.7 g/dl (6.4-8.2)
[2017-05-13 14:44] LABS: SGOT/AST 39 U/L (15-37)
[2017-05-13] MEDS ORDERED: LEVOFLOXACIN 500 MG IVPB 100 ML IVPB ONE ×2 (14:59→16:09)
--- NOTE | 2017-05-13 15:03 | PDOC ---
History of Present Illness - General Chief Complaint: Cold Symptoms Stated Complaint: SICK Time Seen by Provider: 05/13/17 12:58 - History of Present Illness Initial Comments: 05/13/17 15:01 "81 year old male, with significant past medical history of HTN, HLD, CVA, TIA x 2, agitated dementia, essential thrombocytosis, and GI bleed, who presents to the emergency room BIBA from home with his and children who state that the patient has been congested and coughing over the past 3 days, seems out of it, and more tired than usual. As per , the patient is bedridden, but usually more alert. He has been sleeping more frequently over the past couple of days. The cough is nonproductive, but wet. The patient has been taking robitussin and tylenol without relief. Denies fever, chills, nausea, vomiting, diarrhea. Denies chest pain, SOB. Denies abdominal pain. Allergies: penicillins PMD: Dr. Galloway " Past History - Past Medical History Allergies/Adverse Reactions: Allergies Allergy/AdvReac Type Severity Reaction Status Date / Time Penicillins Allergy Mild Nausea Verified 05/13/17 13:08 Home Medications: Ambulatory Orders Allopurinol [Zyloprim -] 300 mg PO DAILY 09/24/14 Atorvastatin Ca [Lipitor] 20 mg PO HS 09/24/14 Pantoprazole Sodium [Protonix -] 40 mg PO DAILY #14 tablet.ec 07/22/16 Aspirin [ASA -] 81 mg PO DAILY 08/02/16 Atenolol [Tenormin] 50 mg PO DAILY 08/02/16 Alprazolam 1 mg PO DAILY PRN #30 tablet MDD 1 01/02/17 Hydroxyurea [Hydrea 500Mg Capsule -] 500 mg PO DAILY #30 cap MDD 1 01/02/17 Quetiapine Fumarate [Quetiapine Fumarate ER] 50 mg PO HS #30 tab.er.24h Docusate Sodium [Colace -] 100 mg PO BID 05/13/17 Fluoxetine HCl 20 mg PO DAILY 05/13/17 Haloperidol [Haldol -] 2 mg PO BID 05/13/17 Anemia: No Asthma: No Cancer: No Cardiac Disorders: No CVA: Yes (TIA X2, Ataxia) COPD: No CHF: No Dementia: No Diabetes: No GI Disorders: Yes (GI bleed) Disorders: No HTN: Yes Hypercholesterolemia: Yes Liver Disease: No Psychiatric Problems: Yes (AXIETY, DEPRESSION) Seizures: No Thyroid Disease: No - Surgical History Abdominal Surgery: No Appendectomy: No Cardiac Surgery: No Cholecystectomy: No Lung Surgery: No Neurologic Surgery: No Orthopedic Surgery: No - Immunization History Immunization Up to Date: Yes - Suicide/Smoking/Psychosocial Hx Smoking Status: No Smoking History: Never smoked Have you smoked in the past 12 months: No Number of Cigarettes Smoked Daily: 0 Information on smoking cessation initiated: No Hx Alcohol Use: No Drug/Substance Use Hx: No Substance Use Type: None Hx Substance Use Treatment: No Review of Systems - Review of Systems Comments:: 05/13/17 15:02 " GENERAL/CONSTITUTIONAL: No fever or chills. No weakness. HEAD, EYES, EARS, NOSE AND THROAT: No change in vision. No ear pain or discharge. No sore throat. CARDIOVASCULAR: No chest pain or shortness of breath. RESPIRATORY: +cough. No wheezing, or hemoptysis. GASTROINTESTINAL: No nausea, vomiting, diarrhea or constipation. GENITOURINARY: No dysuria, frequency, or change in urination. MUSCULOSKELETAL: No joint or muscle swelling or pain. No neck or back pain. SKIN: No rash NEUROLOGIC: No headache, vertigo, loss of consciousness, or change in strength/ sensation. ENDOCRINE: No increased thirst. No abnormal weight change. HEMATOLOGIC/LYMPHATIC: No anemia, easy bleeding, or history of blood clots. ALLERGIC/IMMUNOLOGIC: No hives or skin allergy. " *Physical Exam - Vital Signs Last Vital Signs Temp Pulse Resp BP Pulse Ox 97.9 F 66 18 132/66 96 05/13/17 12:30 05/13/17 12:30 05/13/17 12:30 05/13/17 12:30 05/13/17 12:30 - Physical Exam Comments: 05/13/17 15:02 "GENERAL: Awake, alert, and fully oriented, in no acute distress HEAD: No signs of trauma EYES: PERRLA, EOMI, sclera anicteric, conjunctiva clear ENT: Auricles normal inspection, hearing grossly normal, nares patent, oropharynx clear without exudates. Moist mucosa NECK: Nontender, no stepoffs, Normal ROM, supple, no lymphadenopathy, JVD, or masses LUNGS: + diffuse rhonchi. No wheezes, and no crackles HEART: Regular rate and rhythm, normal S1 and S2, no murmurs, rubs or gallops ABDOMEN: Soft, nontender, normoactive bowel sounds. No guarding, no rebound. No masses EXTREMITIES: Normal range of motion, no edema. No clubbing or cyanosis. No cords , erythema, or tenderness NEUROLOGICAL: Cranial nerves II through XII intact. 5/5 strength and sensation in all extremities, Normal speech, normal gait SKIN: Warm, Dry, normal turgor, no rashes or lesions noted. " \\ ED Treatment Course - LABORATORY CBC & Chemistry Diagram: 05/13/17 14:00 05/13/17 14:00 - ADDITIONAL ORDERS Additional order review: Laboratory Results 05/13/17 14:00 Sodium 142 Potassium 4.4 Chloride 108 H Carbon Dioxide 29 Anion Gap 5 L BUN 22 H D Creatinine 1.0 Creat Clearance w eGFR > 60 Random Glucose 86 Calcium 8.6 Total Bilirubin 0.5 AST 39 H D ALT 25 D Alkaline Phosphatase 65 D Total Protein 6.7 Albumin 2.9 L 05/13/17 14:00 RBC 3.29 L MCV 111.4 H MCHC 33.7 RDW 14.8 D MPV 7.5 Neutrophils % 57.1 Lymphocytes % 22.1 Monocytes % 11.0 H Eosinophils % 8.7 H Basophils % 1.1 - RADIOLOGY Radiology Studies Ordered: Category Date Time Status CHEST X-RAY PORTABLE* [RAD] Stat Radiology 05/13/17 13:27 Completed Medical Decision Making - Medical Decision Making 05/13/17 15:04 81 M with cough and weakness x 3 days. Concerning for PNA given rhonchorous lung sounds. Pt afebrile in ER but clinically appears infected. Also consider viral syndrome. Pt did not get flu shot this year. - Labs, CXR, UA - BCx, UCx - Flu swab - IVF, abx - Admit 05/13/17 15:27 CXR without obvious consolidation. Will obtain CT to better evaluate. Empirically started on levaquin for presumed PNA. Spoke with Dr. Galloway, who has agreed to admit patient. Case discussed in detail with admitting physician including history, physical exam and ancillary studies. Admitting physician has assumed care for the patient and will follow all pending diagnostics and complete the evaluation and treatment. *DC/Admit/Observation/Transfer Diagnosis at time of Disposition: Aspiration pneumonia - Discharge Dispostion Admit: Yes - Attestations Physician Attestion: 05/13/17 15:30 I, Dr. Sim Egan MD, attest that this document has been prepared under my direction and personally reviewed by me in its entirety. I further attest, that it accurately reflects all work, treatment, procedures and medical decision -making performed by me.
[2017-05-13] MEDS ORDERED: SODIUM CHLORIDE 1,000 ML IV STA (15:29)
--- NOTE | 2017-05-13 18:13 | HP ---
Admitting History and Physical - Primary Care Physician PCP: Manuel Galloway - Admission Chief Complaint: weakness History of Present Illness: 81 year old home bound/bedridden male, with significant past medical history of HTN, HLD, multiple CVA'a, agitated dementia, essential thrombocytosis, and Hx of GI bleed, who presents to the emergency room TIMO from home with his and children who state that the patient has been congested and coughing over the past 3 days, and has grown more and more listless to the point where he hasn 't been eating or drinking in the past 1-2 days. As per , the patient is bedridden, but usually more alert and verbal. He has been drowsy much of the time since he began feeling ill. He has developed a moist cough over the past couple of days. The cough is nonproductive. The patient has been taking robitussin and tylenol without relief. There is no report of nausea/vomiting; restlessness, aches or pains, diarrhea. She did notice a red rash on the buttock a few days ago. 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 Cardiovascular: Yes: HTN, Hyperlipdemia Pulmonary: Yes: Bronchitis Gastrointestinal: Yes: GI Bleed (History of) Renal/: Yes: Renal Inusuff (mild) Heme/Onc: Yes: Other (thrombocytopenia) Infectious Disease: Yes: Other (UTI) Psych: Yes: Anxiety, Depression Musculoskeletal: Yes: Other (Gait dysfunction likely 2nd old CVA) Rheumatology: Yes: Gout - Smoking History Smoking history: Never smoked Have you smoked in the past 12 months: No Aproximately how many cigarettes per day: 0 - Alcohol/Substance Use Hx Alcohol Use: No History of Substance Use: reports: None - Social History Usual Living Arrangement: Yes: With Spouse 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 Home Medications - Allergies Allergies/Adverse Reactions: Allergies Allergy/AdvReac Type Severity Reaction Status Date / Time Penicillins Allergy Mild Nausea Verified 05/13/17 13:08 - Home Medications Home Medications: Ambulatory Orders Allopurinol [Zyloprim -] 300 mg PO DAILY 09/24/14 Atorvastatin Ca [Lipitor] 20 mg PO HS 09/24/14 Pantoprazole Sodium [Protonix -] 40 mg PO DAILY #14 tablet.ec 07/22/16 Aspirin [ASA -] 81 mg PO DAILY 08/02/16 Atenolol [Tenormin] 50 mg PO DAILY 08/02/16 Alprazolam 1 mg PO DAILY PRN #30 tablet MDD 1 01/02/17 Hydroxyurea [Hydrea 500Mg Capsule -] 500 mg PO DAILY #30 cap MDD 1 01/02/17 Quetiapine Fumarate [Quetiapine Fumarate ER] 50 mg PO HS #30 tab.er.24h Docusate Sodium [Colace -] 100 mg PO BID 05/13/17 Fluoxetine HCl 20 mg PO DAILY 05/13/17 Haloperidol [Haldol -] 2 mg PO BID 05/13/17 Family Disease History - Family Disease History Family Disease History: Heart Disease: Mother (CHF) Review of Systems Findings/Remarks: not able to reliably obtain from patient as he says "no" to every question Physical Examination Vital Signs: Vital Signs Temperature 97.9 F 05/13/17 12:30 Pulse Rate 66 05/13/17 12:30 Respiratory Rate 18 05/13/17 12:30 Blood Pressure 132/66 05/13/17 12:30 O2 Sat by Pulse Oximetry (%) 96 05/13/17 12:30 Constitutional: Yes: No Distress Eyes: Yes: Conjunctiva Clear HENT: Yes: Atraumatic, Other (tongue coated; edentulous) Neck: Yes: Supple Cardiovascular: Yes: Regular Rate and Rhythm Respiratory: Yes: Regular Gastrointestinal: Yes: Normal Bowel Sounds, Soft ...Rectal Exam: Yes: Deferred Musculoskeletal: Yes: WNL Extremities: Yes: WNL Edema: No Peripheral Pulses WNL: Yes Peripheral Pulses: Left Doralis Pedis: 1+, Right Dorsalis Pedis: 1+ Integumentary: Yes: Skin Tear (excoriated buttock sore; bilateral) Neurological: Yes: Confusion, Weakness, Other (awake but drowsy; listless; has good eye contact, responds to his name; able to follow some commands; strenght is reduced; Lt side weaker than Rt) Psychiatric: Yes: Other (drowsy, but rousable) Labs: CBCD WBC 8.5 K/mm3 (4.0-10.0) 05/13/17 14:00 RBC 3.29 M/mm3 (4.00-5.60) L 05/13/17 14:00 Hgb 12.3 GM/dL (11.7-16.9) 05/13/17 14:00 Hct 36.6 % (35.4-49) 05/13/17 14:00 MCV 111.4 fl (80-96) H 05/13/17 14:00 MCHC 33.7 g/dl (32.0-35.9) 05/13/17 14:00 RDW 14.8 % (11.9-15.9) D 05/13/17 14:00 Plt Count 361 K/MM3 (134-434) 05/13/17 14:00 MPV 7.5 fl (7.5-11.1) 05/13/17 14:00 CMP Sodium 142 mmol/L (136-145) 05/13/17 14:00 Potassium 4.4 mmol/L (3.5-5.1) 05/13/17 14:00 Chloride 108 mmol/L (98-107) H 05/13/17 14:00 Carbon Dioxide 29 mmol/L (21-32) 05/13/17 14:00 Anion Gap 5 (8-16) L 05/13/17 14:00 BUN 22 mg/dL (7-18) H D 05/13/17 14:00 Creatinine 1.0 mg/dL (0.7-1.3) 05/13/17 14:00 Creat Clearance w eGFR > 60 (>60) 05/13/17 14:00 Random Glucose 86 mg/dL (74-106) 05/13/17 14:00 Calcium 8.6 mg/dL (8.5-10.1) 05/13/17 14:00 Total Bilirubin 0.5 mg/dL (0.2-1.0) 05/13/17 14:00 AST 39 U/L (15-37) H D 05/13/17 14:00 ALT 25 U/L (12-78) D 05/13/17 14:00 Alkaline Phosphatase 65 U/L (45-117) D 05/13/17 14:00 Total Protein 6.7 g/dl (6.4-8.2) 05/13/17 14:00 Albumin 2.9 g/dl (3.4-5.0) L 05/13/17 14:00 Imaging - Results Chest X-ray: Report Reviewed Cat Scan: Report Reviewed Problem List - Problems (1) Cough due to bronchospasm Assessment/Plan: displays respiratory tract symptoms in association with physical debility below his baseline. Chest CT reveals fluid/phlegm within the trachea to suggest a bronchitis or aspiration; which likely accounts for his moist cough. PLAN: to keep npo except meds; get FLAME CUTTING SUPERVISOR eval; Neb Tx; and Rx IV Abs Code(s): J98.01 - ACUTE BRONCHOSPASM (2) Benign hypertensive renal disease Assessment/Plan: maintained on dual agents; BB and CCB; but will see if he needs both or not Code(s): I12.9 - HYPERTENSIVE CHRONIC KIDNEY DISEASE W STG 1-4/UNSP CHR KDNY (3) CVA (cerebral vascular accident) Assessment/Plan: Not new; s/p multiple events with resultant cognitive impairment/cerebral dysfunction to the point where he is physically limited and significantly impoverished mentally. He requires near total asist in his ADLs Code(s): I63.9 - CEREBRAL INFARCTION, UNSPECIFIED Qualifiers: CVA mechanism: unspecified Qualified Code(s): I63.9 - Cerebral infarction, unspecified; I63.9 - Cerebral infarction, unspecified; I63.9 - Cerebral infarction, unspecified; I63.9 - Cerebral infarction, unspecified (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 Assessment/Plan: not new; 2nd old CVA; uses thickened liquids, but will need to get FLAME CUTTING SUPERVISOR, as his current debilitated state may make it difficult for him to be fed. Code(s): I69.991 - DYSPHAGIA FOLLOWING UNSPECIFIED CEREBROVASCULAR DISEASE (5) Bronchitis, chronic Assessment/Plan: as noted by CT; now may have an acute process superimposed. PLAN: Neb Tx; And Abs Code(s): J42 - UNSPECIFIED CHRONIC BRONCHITIS Qualifiers: Chronic bronchitis type: unspecified Qualified Code(s): J42 - Unspecified chronic bronchitis; J42 - Unspecified chronic bronchitis; J42 - Unspecified chronic bronchitis; J42 - Unspecified chronic bronchitis (6) Dementia with behavioral disturbance Assessment/Plan: longstanding; 2nd CVA; often becomes agitated to the point where he needs PRN anxiolytics; on top of his maintenence antipsychotic agent and SSRI Code(s): F03.91 - UNSPECIFIED DEMENTIA WITH BEHAVIORAL DISTURBANCE Qualifiers : Dementia type: vascular dementia Qualified Code(s): F01.51 - Vascular dementia with behavioral disturbance; F01.51 - Vascular dementia with behavioral disturbance; F01.51 - Vascular dementia with behavioral disturbance (7) Essential thrombocythemia Assessment/Plan: controlled with Hydrea Code(s): D47.3 - ESSENTIAL (HEMORRHAGIC) THROMBOCYTHEMIA (8) GERD (gastroesophageal reflux disease) Assessment/Plan: with past Hx of GI bleed; will cont the PPI Code(s): K21.9 - GASTRO-ESOPHAGEAL REFLUX DISEASE WITHOUT ESOPHAGITIS Qualifiers: Esophagitis presence: esophagitis presence not specified Qualified Code(s): K21.9 - Gastro-esophageal reflux disease without esophagitis; K21.9 - Gastro-esophageal reflux disease without esophagitis; K21.9 - Gastro-esophageal reflux disease without esophagitis (9) Generalized weakness Assessment/Plan: as a result of his acute process Code(s): R53.1 - WEAKNESS (10) Confusion state Assessment/Plan: worse than baseline; likley toxic metabolic effect of infected state Code(s): F44.89 - OTHER DISSOCIATIVE AND CONVERSION DISORDERS (11) Mobility impaired Assessment/Plan: 2nd to COUNTERINTELLIGENCE ANALYST dysfunction as outlined; has semi-electric Hosp bed and supportive devices at home; may need more appropriate mattress. Code(s): Z74.09 - OTHER REDUCED MOBILITY (12) Decubitus skin ulcer Assessment/Plan: bilaterally excoriated skin; will need protective covering Code(s): L89.90 - PRESSURE ULCER OF UNSPECIFIED SITE, UNSPECIFIED STAGE Qualifiers: Pressure ulcer location: buttock Pressure ulcer stage: stage 2 Assessment/Plan debilitated male with underlying mobility & cogn impairment who has grown more lethargic in the past 2 days in the midst of an acute infective process. ~~~~~~~~~~~~~~~~~~~ Dr Galloway
[2017-05-13 18:52] LABS: URINE APPEARANCE CLEAR; URINE BILIRUBIN NEGATIVE (NEGATIVE); URINE BLOOD NEGATIVE (NEGATIVE); URINE COLOR YELLOW; URINE GLUCOSE (UA) NEGATIVE (NEGATIVE); URINE KETONE NEGATIVE (NEGATIVE); URINE NITRITE NEGATIVE (NEGATIVE); URINE PROTEIN NEGATIVE (NEGATIVE); URINE UROBILINOGEN NEGATIVE mg/dL (0.2-1.0)
[2017-05-13 19:05] VITALS: BMI 24.5
[2017-05-13] MEDS: DEXTROSE 5%-0.45% SALINE 1,000 ML IV SCH (20:43)
[2017-05-13 21:08] LABS: URINE LEUK ESTERASE Negative (NEGATIVE)
[2017-05-13] MEDS: HEPARIN NA (PORCINE) 5,000 UNITS/ML 1ML VIAL SQ SCH (21:13)
[2017-05-13] MEDS: ALBUTEROL SO4 2.5/IPRATROPIUM 0.5 INH SOL 3 ML VIAL.NEB. NEB SCH (22:30)
[2017-05-14] MEDS: ALBUTEROL SO4 2.5/IPRATROPIUM 0.5 INH SOL 3 ML VIAL.NEB. NEB SCH ×3 (07:15→22:06)
[2017-05-14] MEDS ORDERED: PT OWN MED DRAWER 7, Y5N ONE (09:19)
[2017-05-14] MEDS: amLODIPine BESYLATE 2.5 MG TABLET (FP) PO SCH (09:30)
[2017-05-14] MEDS: LEVOFLOXACIN 250 MG IVPB 50 ML IVPB SCH (09:31)
[2017-05-14] MEDS: HEPARIN NA (PORCINE) 5,000 UNITS/ML 1ML VIAL SQ SCH ×2 (09:31→21:02)
[2017-05-14] MEDS: ALPRAZolam 0.25 MG TABLET PO PRN ×2 (09:32→20:33)
[2017-05-14] MEDS: ASPIRIN 81 MG CHEWABLE TABLETS PO SCH (09:32)
[2017-05-14] MEDS: ESCITALOPRAM OXALATE 10 MG TABLET (FP) PO SCH (09:32)
[2017-05-14] MEDS: ATENOLOL 25 MG TABLET (FP) PO SCH (09:32)
[2017-05-14] MEDS: ALLOPURINOL 300 MG TABLET (FP) PO SCH (09:32)
[2017-05-14] MEDS: PANTOPRAZOLE SODIUM 40 MG VIAL IVPUSH SCH (09:33)
[2017-05-14] MEDS: HYDROXYUREA 500 MG CAPSULE PO SCH (09:33)
[2017-05-14 10:05] LABS: MCH 37.1 pg (25.7-33.7); MCHC 33.7 g/dl (32.0-35.9); MEAN CELL VOLUME 110.2 fl (80-96); MEAN PLT VOLUME 7.1 fl (7.5-11.1); PLATELET COUNT 386 K/MM3 (134-434); RDW 14.6 % (11.9-15.9); WHITE BLOOD COUNT 9.9 K/mm3 (4.0-10.0)
--- NOTE | 2017-05-14 10:18 | CONSULT ---
Admitting History and Physical - Primary Care Physician PCP: Manuel Galloway - Admission History of Present Illness: Per emr: History of Present Illness: 81 year old home bound/bedridden male, with significant past medical history of HTN, HLD, multiple CVA'a, agitated dementia, essential thrombocytosis, and Hx of GI bleed, who presents to the emergency room BIBA from home with his and children who state that the patient has been congested and coughing over the past 3 days, and has grown more and more listless to the point where he hasn 't been eating or drinking in the past 1-2 days. As per , the patient is bedridden, but usually more alert and verbal. He has been drowsy much of the time since he began feeling ill. He has developed a moist cough over the past couple of days. The cough is nonproductive. The patient has been taking robitussin and tylenol without relief. There is no report of nausea/vomiting; restlessness, aches or pains, diarrhea. She did notice a red rash on the buttock a few days ago. Selected Entries 05/13/17 05/13/17 05/14/17 12:30 22:04 02:00 Temperature 97.9 F 98 F 98.0 F 05/14/17 06:11 Temperature 99.2 F Laboratory Tests 05/13/17 05/14/17 14:00 09:35 WBC 8.5 9.9 Pt known to me from previous admissions. I last worked with him in December 2016, and was discharged on puree and nectar thick liquid. I spoke with pt's , Taylor, who said pt was eating regular, soft food, cut up, eg sausage, pasta, and slightly thickened liquids. Recently, he was coughing and she thought he had a cold. He coughed responsively on thick liquid from a cup, and needed it given on a tsp to tolerate it. 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 Cardiovascular: Yes: HTN, Hyperlipdemia Pulmonary: Yes: Bronchitis Gastrointestinal: Yes: GI Bleed (History of) Renal/: Yes: Renal Inusuff (mild) Heme/Onc: Yes: Other (thrombocytopenia) Infectious Disease: Yes: Other (UTI) Psych: Yes: Anxiety, Depression Musculoskeletal: Yes: Other (Gait dysfunction likely 2nd old CVA) Rheumatology: Yes: Gout - Smoking History Smoking history: Never smoked Have you smoked in the past 12 months: No Aproximately how many cigarettes per day: 0 - Alcohol/Substance Use Hx Alcohol Use: No History of Substance Use: reports: None - Social 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 History - Admission Reason For Visit: ASPIRATION PNEUMONIA - Diagnostics X-ray: Report Reviewed CT Scan: Report Reviewed (Pulmonary nodules) Modified Barium Swallow: Report Reviewed (Last MBS 12/2016, spillage over base of tongue with risk of aspiration.) - General Mental Status: Alert and Oriented ("hospital" Thought he had a stroke.), Awake and Alert, Able to Follow Commands, Vague Attention: Distractible, Mild Impairment Ability to Follow Directions: Fair Head/Neck Control: Good - Hearing Hearing: Normal Speech Evaluation - Communication Primary Language: PASHTO Communication: Yes: Simple Responses - Speech Production Able to Make Needs Known: Yes: Mildly Impaired Intelligibility: Yes: WNL - Speech Characteristics Voice Loudness: Normal Voice Pitch: Yes: Normal Voice Phonatory-based Quality: Yes: Normal Speech Pattern: Normal Speech Clarity: < 100% Nasal Resonance: Normal Articulation: Yes: Precise - Language/Auditory Comprehension Follows: Yes: 1 Stage Simple Commands Observation: Comprehends Conversational Speech: Yes - Language/Verbal Expression Functional Communication Status: Yes: Mildly Impaired - Swallow Evaluation/Bedside Assessment Current Nutritional Intake: Dysphagia Pureed, Honey Textured Liquids Oral Secretions: Yes: WFL Dentition: Yes: Edentulous Facial Symmetry at Rest: Symmetrical Facial Symmetry on Retraction: Symmetrical Against Resistance Opening: Normal Pucker Lips: Normal Smile: Normal Lingual Movement: Normal, Symmetric (slight white coating on lateral portions of tongue) Lingual Speed of Movement: Normal Lingual Movement Strgth Against Opposition: Normal Lingual Movement Characteristics: Normal Velopharyngeal Movement: Normal Laryngeal Movement: Able to Palpate, Labored,delay initiation Rate of Intake: Slow/Holding Bolus Size: WFL Oral Prep Time: Increased A-P Transit: Impaired Timing of Swallow: Delayed Coughing/Throat Clear: No (with trial puree and nectar thick liquid) Change in Voice: No Recommendations - Speech Evaluation, Impression/Plan Impression: Overtly tolerating with trial puree and nectar thick liquid. Awake, verbal, vague, slow to respond, similar to previous baseline. Per pt's , pt was tolerating soft solids and slightly thickened liquid until recently, when he seemed to have "a cold and coughed while drinking thick liquid from a cup.". r/o aspiration - Dysphagia Impressions/Plan Dysphagia Impressions: Mild Impairment, Risk of Aspiration *Silent aspiration: cannot be R/O at bedside Recommendations: Modified Barium Swallow (to r/o aspiration and determine most liberal diet that pt can tolerate.) - Recommendations Diet Consistency: Dysphagia Pureed Medication Administration: Crushed with applesauce Liquids: [place] Thick Supplement: Magic Cup
[2017-05-14 10:38] LABS: ANION GAP 8 (8-16); CALCIUM 8.9 mg/dL (8.5-10.1); CO2 26 mmol/L (21-32); GLUCOSE,RANDOM 121 mg/dL (74-106)
[2017-05-14 10:49] LABS: CREATININE 0.8 mg/dL (0.7-1.3); THYROID STIMULATING HORMONE 1.74 uIU/ml (0.358-3.74)
[2017-05-14] MEDS ORDERED: ACETAMINOPHEN 325 MG TABLET (FP) PO ONE (16:45)
--- NOTE | 2017-05-14 17:06 | EKG ---
Test Reason : Blood Pressure : / mmHG Vent. Rate : 054 BPM Atrial Rate : 054 BPM P-R Int : 190 ms QRS Dur : 096 ms QT Int : 448 ms P-R-T Axes : 035 -49 065 degrees QTc Int : 424 ms SINUS BRADYCARDIA LEFT ANTERIOR FASCICULAR BLOCK ABNORMAL ECG WHEN COMPARED WITH ECG OF 26-DEC-2016 00:12, CRITERIA FOR SEPTAL INFARCT ARE NO LONGER PRESENT ST NO LONGER DEPRESSED IN LATERAL LEADS NONSPECIFIC T WAVE ABNORMALITY HAS REPLACED INVERTED T WAVES IN LATERAL LEADS Confirmed by CARLOS FITZGERALD MD ([id number]) on 05/14/2017 5:06:49 PM Referred By: Confirmed By:CARLOS FITZGERALD MD
--- NOTE | 2017-05-14 20:05 | PN ---
Progress Note (short form) - Note Progress Note: medical ^^^^^^^^^^^^^^^^^ Current Medications Albuterol/Ipratropium (Duoneb -) 1 amp NEB TIDR [facility] Last Admin: 05/14/17 14:30 Dose: Not Given Allopurinol (Zyloprim -) 300 mg PO DAILY [facility] Last Admin: 05/14/17 09:32 Dose: 300 mg Alprazolam (Xanax -) 0.5 mg PO Q12H PRN PRN Reason: AGITATION Last Admin: 05/14/17 09:32 Dose: 0.5 mg Amlodipine Besylate (Norvasc -) 2.5 mg PO DAILY [facility] Last Admin: 05/14/17 09:30 Dose: 2.5 mg Aspirin (Asa -) 81 mg PO DAILY [facility] Last Admin: 05/14/17 09:32 Dose: 81 mg Atenolol (Tenormin -) 25 mg PO DAILY [facility] Last Admin: 05/14/17 09:32 Dose: 25 mg Escitalopram Oxalate (Lexapro -) 10 mg PO DAILY [facility] Last Admin: 05/14/17 09:32 Dose: 10 mg Haloperidol (Haldol Injection (Fast Acting) -) 2.5 mg IM Q6H PRN PRN Reason: AGITATION Heparin Sodium (Porcine) (Heparin -) 5,000 unit SQ BID [facility] Last Admin: 05/14/17 09:31 Dose: 5,000 unit Hydroxyurea (Hydrea -) 500 mg PO DAILY [facility] Last Admin: 05/14/17 09:33 Dose: 500 mg Levofloxacin (Levaquin 250 Mg Premixed Ivpb -) 50 mls @ 50 mls/hr IVPB DAILY [facility] Last Admin: 05/14/17 09:31 Dose: 50 mls/hr Dextrose/Sodium Chloride (D5-1/2ns -) 1,000 mls @ 50 mls/hr IV ASDIR [facility] Last Admin: 05/13/17 20:43 Dose: 50 mls/hr Pantoprazole Sodium (Protonix Iv) 40 mg IVPUSH DAILY [facility] Last Admin: 05/14/17 09:33 Dose: 40 mg Risperidone (Risperdal -) 0.25 mg PO Q12H [facility] Laboratory Results - last 24 hr 05/13/17 05/14/17 05/14/17 18:39 09:35 09:35 WBC 9.9 RBC 3.41 L Hgb 12.7 Hct 37.6 MCV 110.2 H MCH 37.1 H MCHC 33.7 RDW 14.6 Plt Count 386 MPV 7.1 L Sodium 140 Potassium 3.9 Chloride 106 Carbon Dioxide 26 Anion Gap 8 BUN 14 D Creatinine 0.8 Random Glucose 121 H D Hemoglobin A1c % Calcium 8.9 TSH 1.74 D Urine Color Yellow Urine Appearance Clear Urine pH 5.0 Ur Specific [place] 1.024 Urine Protein Negative Urine Glucose (UA) Negative Urine Ketones Negative Urine Blood Negative Urine Nitrite Negative Urine Bilirubin Negative Urine Urobilinogen Negative Ur Leukocyte Esterase Negative 05/14/17 09:35 WBC RBC Hgb Hct MCV MCH MCHC RDW Plt Count MPV Sodium Potassium Chloride Carbon Dioxide Anion Gap BUN Creatinine Random Glucose Hemoglobin A1c % 5.2 D Calcium TSH Urine Color Urine Appearance Urine pH Ur Specific [place] Urine Protein Urine Glucose (UA) Urine Ketones Urine Blood Urine Nitrite Urine Bilirubin Urine Urobilinogen Ur Leukocyte Esterase Vital Signs Temperature 98.1 F 05/14/17 18:00 Pulse Rate 60 05/14/17 18:00 Respiratory Rate 16 05/14/17 18:00 Blood Pressure 141/74 05/14/17 18:00 O2 Sat by Pulse Oximetry (%) 96 05/14/17 13:32 CC: poorly expressive `````````````````````````` skin-- rash on neck crease head--NC eyes--midline oral--tongue coated lungs--poosr insp; but non labored; no wheezes rhonchi heard heart--RR 2/6 syst M abd--soft, NT ext--no edema neuro--listless, cognitively limited/impaired and poorly mobile; not fully able to make his needs met; he is able to move extremities on command (to a degree). No gross motor deficits, tremors. `````````````````````````````````````````````` Summ > Cough--2nd aspiration (as shown on CT....and confirmed by MBS) to thinner liquids. This is superimposed on chronic bronchitis and chronic dysphagia ( likely as a result of past CVA's). PLAN: cont current Neb Tx; IV Abs; Dysph diet ; IVF Support. > Htn--Bp seems adequately controlled with lower dose BB & CCB > Decubitus ulcer--buttock; due to immobility and inability to self position and lack of awareness. he is getting topical Treatment at this time, but at the time of D/c home; he will greatly benefit from an Air-mattress; which will serve to help in the healing; and to better off-load body pressure in a situation where frequent position changes cannot be effective in the healing process on a regular mattress. This will also serve to avoid complications and further re-admissions as a result. > Dementia--with agitation; quelled with either Haldol or xanax; at home he receives an SSRI which is not at all effective on its own. He did not fare well using Seroquel as it produced lethargy in modest doses to control his outbursts. PLAN: will now try use of Risperidal but will still need xanax or Haldol on a Prn basis > Thrombocythemia--essential?; counts controlled with Hydrea > Dysphagia--longstanding; see above > Fail thrive--exacerbating cause possibly due to a state of infection of unknown organism. 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 Code(s): I69.991 - DYSPHAGIA FOLLOWING UNSPECIFIED CEREBROVASCULAR DISEASE (5) Bronchitis, chronic Code(s): J42 - UNSPECIFIED CHRONIC BRONCHITIS Qualifiers: Chronic bronchitis type: unspecified Qualified Code(s): J42 - Unspecified chronic bronchitis; J42 - Unspecified chronic bronchitis; J42 - Unspecified chronic bronchitis; J42 - Unspecified chronic bronchitis (6) Dementia with behavioral disturbance Code(s): F03.91 - UNSPECIFIED DEMENTIA WITH BEHAVIORAL DISTURBANCE Qualifiers : Dementia type: vascular dementia Qualified Code(s): F01.51 - Vascular dementia with behavioral disturbance; F01.51 - Vascular dementia with behavioral disturbance; F01.51 - Vascular dementia with behavioral disturbance (7) Essential thrombocythemia Code(s): D47.3 - ESSENTIAL (HEMORRHAGIC) THROMBOCYTHEMIA (8) GERD (gastroesophageal reflux disease) Code(s): K21.9 - GASTRO-ESOPHAGEAL REFLUX DISEASE WITHOUT ESOPHAGITIS Qualifiers: Esophagitis presence: esophagitis presence not specified Qualified Code(s): K21.9 - Gastro-esophageal reflux disease without esophagitis; K21.9 - Gastro-esophageal reflux disease without esophagitis; K21.9 - Gastro-esophageal reflux disease without esophagitis (9) Generalized weakness Code(s): R53.1 - WEAKNESS (10) Confusion state Code(s): F44.89 - OTHER DISSOCIATIVE AND CONVERSION DISORDERS (11) Mobility impaired Code(s): Z74.09 - OTHER REDUCED MOBILITY (12) Decubitus skin ulcer Code(s): L89.90 - PRESSURE ULCER OF UNSPECIFIED SITE, UNSPECIFIED STAGE Qualifiers: Pressure ulcer location: buttock Pressure ulcer stage: stage 2
[2017-05-14] MEDS: DEXTROSE 5%-0.45% SALINE 1,000 ML IV SCH (20:35)
[2017-05-15] MEDS: ALBUTEROL SO4 2.5/IPRATROPIUM 0.5 INH SOL 3 ML VIAL.NEB. NEB SCH ×2 (06:06→13:40)
[2017-05-15] MEDS: risperiDONE 0.25 MG TABLET (FP) PO SCH ×2 (08:23→20:20)
[2017-05-15] MEDS ORDERED: HYDROCORTISONE 2.5% TOPICAL CREAM 30 GM TUBE TP SCH (10:00)
[2017-05-15] MEDS: LEVOFLOXACIN 250 MG IVPB 50 ML IVPB SCH (10:01)
[2017-05-15] MEDS: PANTOPRAZOLE SODIUM 40 MG VIAL IVPUSH SCH (10:01)
[2017-05-15] MEDS: ALLOPURINOL 300 MG TABLET (FP) PO SCH (10:02)
[2017-05-15] MEDS: ESCITALOPRAM OXALATE 10 MG TABLET (FP) PO SCH (10:02)
[2017-05-15] MEDS: ASPIRIN 81 MG CHEWABLE TABLETS PO SCH (10:02)
[2017-05-15] MEDS: amLODIPine BESYLATE 2.5 MG TABLET (FP) PO SCH (10:02)
[2017-05-15] MEDS: HYDROXYUREA 500 MG CAPSULE PO SCH (10:02)
[2017-05-15] MEDS: ALPRAZolam 0.25 MG TABLET PO PRN ×2 (10:02→22:08)
[2017-05-15] MEDS: HYDROCORTISONE 0.5% TOPICAL CREAM 30 GM TUBE TP SCH (10:03)
[2017-05-15] MEDS: HEPARIN NA (PORCINE) 5,000 UNITS/ML 1ML VIAL SQ SCH ×2 (10:03→22:08)
[2017-05-15] MEDS: ATENOLOL 25 MG TABLET (FP) PO SCH (10:03)
--- NOTE | 2017-05-15 11:49 | PN ---
Progress Note, [employer] - Note Progress Note: MBS reviewed with pt's who is in agreement with honey thick liquid and puree at this time. Silent aspiration identified on mbs, with no pt awareness or cough response when liquid enters the airway. Selected Entries 05/14/17 05/14/17 05/14/17 02:00 06:11 13:57 Breakfast 25% Lunch 50% Supper Temperature 98.0 F 99.2 F 98.2 F 05/14/17 05/14/17 05/15/17 18:00 22:00 06:00 Breakfast Lunch Supper 25% Temperature 98.1 F 98.2 F 98.1 F Laboratory Tests 05/14/17 09:35 WBC 9.9 Monitor pulmonary/nutrional status. Magic cup for supplement b/n meals, as indicated.
[2017-05-15] MEDS ORDERED: DOCUSATE NA 100 MG/10 ML UNIT-DOSE CUPS PO PRN (15:21)
--- NOTE | 2017-05-15 18:18 | PN ---
Progress Note (short form) - Note Progress Note: ^^^^^^^^^^ Medical Current Medications Albuterol/Ipratropium (Duoneb -) 1 amp NEB TIDR [facility] Last Admin: 05/15/17 13:40 Dose: 1 amp Allopurinol (Zyloprim -) 300 mg PO DAILY [facility] Last Admin: 05/15/17 10:02 Dose: 300 mg Alprazolam (Xanax -) 0.5 mg PO Q12H PRN PRN Reason: AGITATION Last Admin: 05/15/17 10:02 Dose: 0.5 mg Amlodipine Besylate (Norvasc -) 2.5 mg PO DAILY [facility] Last Admin: 05/15/17 10:02 Dose: 2.5 mg Aspirin (Asa -) 81 mg PO DAILY [facility] Last Admin: 05/15/17 10:02 Dose: 81 mg Atenolol (Tenormin -) 25 mg PO DAILY [facility] Last Admin: 05/15/17 10:03 Dose: 25 mg Docusate Sodium (Colace Liquid -) 200 mg PO DAILY PRN PRN Reason: CONSTIPATION Escitalopram Oxalate (Lexapro -) 10 mg PO DAILY [facility] Last Admin: 05/15/17 10:02 Dose: 10 mg Haloperidol (Haldol Injection (Fast Acting) -) 2.5 mg IM Q6H PRN PRN Reason: AGITATION Heparin Sodium (Porcine) (Heparin -) 5,000 unit SQ BID [facility] Last Admin: 05/15/17 10:03 Dose: 5,000 unit Hydrocortisone (Hytone 0.5% Cream -) 1 applic TP DAILY [facility] Last Admin: 05/15/17 10:03 Dose: 1 applic Hydroxyurea (Hydrea -) 500 mg PO DAILY [facility] Last Admin: 05/15/17 10:02 Dose: 500 mg Levofloxacin (Levaquin 250 Mg Premixed Ivpb -) 50 mls @ 50 mls/hr IVPB DAILY [facility] Last Admin: 05/15/17 10:01 Dose: 50 mls/hr Dextrose/Sodium Chloride (D5-1/2ns -) 1,000 mls @ 50 mls/hr IV ASDIR [facility] Last Admin: 05/14/17 20:35 Dose: 50 mls/hr Pantoprazole Sodium (Protonix Iv) 40 mg IVPUSH DAILY [facility] Last Admin: 05/15/17 10:01 Dose: 40 mg Risperidone (Risperdal -) 0.25 mg PO Q12H [facility] Last Admin: 05/15/17 08:23 Dose: 0.25 mg Vital Signs Temperature 98.2 F 05/15/17 14:43 Pulse Rate 53 L 05/15/17 14:43 Respiratory Rate 16 05/15/17 14:43 Blood Pressure 131/65 05/15/17 14:43 O2 Sat by Pulse Oximetry (%) 96 05/15/17 10:00 CC: poorly expressive `````````````````````````` skin-- rash on neck crease; buttock sore head--NC eyes--midline oral--tongue coated lungs--poor insp; but non labored; no wheezes rhonchi heard heart--RR 2/6 syst M abd--soft, NT ext--no edema neuro--listless, cognitively limited/impaired and poorly mobile; not fully able to make his needs met; he is able to move extremities on command (to a degree). No gross motor deficits, tremors. `````````````````````````````````````````````` Summ > Cough--2nd aspiration (as shown on CT....and confirmed by MBS) to thinner liquids. This is superimposed on chronic bronchitis and chronic dysphagia ( likely as a result of past CVA's). PLAN: cont current Neb Tx; IV Abs; Dysph diet ; IVF Support. > Htn--Bp seems adequately controlled with lower dose BB & CCB > Decubitus ulcer--buttock; due to immobility and inability to self position and lack of awareness. he is getting topical Treatment at this time, but at the time of D/c home; he will greatly benefit from an Air-mattress; which will serve to help in the healing; and to better off-load body pressure in a situation where frequent position changes cannot be effective in the healing process on a regular mattress. This will also serve to avoid complications and further re-admissions as a result. > Dementia--with agitation; quelled with either Haldol or xanax; at home he receives an SSRI which is not at all effective on its own. He did not fare well using Seroquel as it produced lethargy in modest doses to control his outbursts. PLAN: will now try use of Risperidal but will still need xanax or Haldol on a Prn basis > Thrombocythemia--essential?; counts controlled with Hydrea > Dysphagia--longstanding; has "SILENT" aspiration to thin liquids; will check CXR to see if any new infiltrates have since developed > Fail thrive--exacerbating cause possibly due to a state of infection of unknown organism. 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 Code(s): I69.991 - DYSPHAGIA FOLLOWING UNSPECIFIED CEREBROVASCULAR DISEASE (5) Bronchitis, chronic Code(s): J42 - UNSPECIFIED CHRONIC BRONCHITIS Qualifiers: Chronic bronchitis type: unspecified Qualified Code(s): J42 - Unspecified chronic bronchitis; J42 - Unspecified chronic bronchitis; J42 - Unspecified chronic bronchitis; J42 - Unspecified chronic bronchitis (6) Dementia with behavioral disturbance Code(s): F03.91 - UNSPECIFIED DEMENTIA WITH BEHAVIORAL DISTURBANCE Qualifiers : Dementia type: vascular dementia Qualified Code(s): F01.51 - Vascular dementia with behavioral disturbance; F01.51 - Vascular dementia with behavioral disturbance; F01.51 - Vascular dementia with behavioral disturbance (7) Essential thrombocythemia Code(s): D47.3 - ESSENTIAL (HEMORRHAGIC) THROMBOCYTHEMIA (8) GERD (gastroesophageal reflux disease) Code(s): K21.9 - GASTRO-ESOPHAGEAL REFLUX DISEASE WITHOUT ESOPHAGITIS Qualifiers: Esophagitis presence: esophagitis presence not specified Qualified Code(s): K21.9 - Gastro-esophageal reflux disease without esophagitis; K21.9 - Gastro-esophageal reflux disease without esophagitis; K21.9 - Gastro-esophageal reflux disease without esophagitis (9) Generalized weakness Code(s): R53.1 - WEAKNESS (10) Confusion state Code(s): F44.89 - OTHER DISSOCIATIVE AND CONVERSION DISORDERS (11) Mobility impaired Code(s): Z74.09 - OTHER REDUCED MOBILITY (12) Decubitus skin ulcer Code(s): L89.90 - PRESSURE ULCER OF UNSPECIFIED SITE, UNSPECIFIED STAGE Qualifiers: Pressure ulcer location: buttock Pressure ulcer stage: stage 2
[2017-05-15] MEDS ORDERED: PT OWN MED DRAWER 7, Y5N ONE (22:01)
[2017-05-16] MEDS: ALBUTEROL SO4 2.5/IPRATROPIUM 0.5 INH SOL 3 ML VIAL.NEB. NEB SCH ×4 (00:13→23:22)
[2017-05-16 09:19] LABS: ANION GAP 7 (8-16); CALCIUM 8.8 mg/dL (8.5-10.1); CO2 27 mmol/L (21-32); GLUCOSE,RANDOM 102 mg/dL (74-106)
[2017-05-16 09:22] LABS: CREATININE 0.9 mg/dL (0.7-1.3)
[2017-05-16] MEDS: risperiDONE 0.25 MG TABLET (FP) PO SCH ×2 (10:02→22:36)
[2017-05-16] MEDS: HYDROXYUREA 500 MG CAPSULE PO SCH (10:02)
[2017-05-16] MEDS: ALLOPURINOL 300 MG TABLET (FP) PO SCH (10:03)
[2017-05-16] MEDS: HEPARIN NA (PORCINE) 5,000 UNITS/ML 1ML VIAL SQ SCH ×2 (10:03→22:36)
[2017-05-16] MEDS: ASPIRIN 81 MG CHEWABLE TABLETS PO SCH (10:04)
[2017-05-16] MEDS: ESCITALOPRAM OXALATE 10 MG TABLET (FP) PO SCH (10:04)
[2017-05-16] MEDS: LEVOFLOXACIN 250 MG IVPB 50 ML IVPB SCH (10:04)
[2017-05-16] MEDS: amLODIPine BESYLATE 2.5 MG TABLET (FP) PO SCH (10:04)
[2017-05-16] MEDS: ATENOLOL 25 MG TABLET (FP) PO SCH (10:04)
[2017-05-16] MEDS: PANTOPRAZOLE SODIUM 40 MG VIAL IVPUSH SCH (10:05)
[2017-05-16] MEDS: HYDROCORTISONE 0.5% TOPICAL CREAM 30 GM TUBE TP SCH (10:05)
[2017-05-16] MEDS: HALOPERIDOL LACTATE 5 MG/ML IM PRN (13:51)
[2017-05-16] MEDS ORDERED: FLU VACCINE QUAD 60 MCG/0.5 ML (MDV 17-18) IM ONE ×2 (18:16→18:30)
--- NOTE | 2017-05-16 18:16 | PN ---
Progress Note (short form) - Note Progress Note: medical Current Medications Albuterol/Ipratropium (Duoneb -) 1 amp NEB TIDR [facility] Last Admin: 05/16/17 14:36 Dose: 1 amp Allopurinol (Zyloprim -) 300 mg PO DAILY [facility] Last Admin: 05/16/17 10:03 Dose: 300 mg Alprazolam (Xanax -) 0.5 mg PO Q12H PRN PRN Reason: AGITATION Last Admin: 05/15/17 22:08 Dose: 0.5 mg Amlodipine Besylate (Norvasc -) 2.5 mg PO DAILY [facility] Last Admin: 05/16/17 10:04 Dose: 2.5 mg Aspirin (Asa -) 81 mg PO DAILY [facility] Last Admin: 05/16/17 10:04 Dose: 81 mg Atenolol (Tenormin -) 25 mg PO DAILY [facility] Last Admin: 05/16/17 10:04 Dose: 25 mg Docusate Sodium (Colace Liquid -) 200 mg PO DAILY PRN PRN Reason: CONSTIPATION Escitalopram Oxalate (Lexapro -) 10 mg PO DAILY [facility] Last Admin: 05/16/17 10:04 Dose: 10 mg Haloperidol (Haldol Injection (Fast Acting) -) 2.5 mg IM Q6H PRN PRN Reason: AGITATION Last Admin: 05/16/17 13:51 Dose: 2.5 mg Heparin Sodium (Porcine) (Heparin -) 5,000 unit SQ BID [facility] Last Admin: 05/16/17 10:03 Dose: 5,000 unit Hydrocortisone (Hytone 0.5% Cream -) 1 applic TP DAILY [facility] Last Admin: 05/16/17 10:05 Dose: 1 applic Hydroxyurea (Hydrea -) 500 mg PO DAILY [facility] Last Admin: 05/16/17 10:02 Dose: 500 mg Levofloxacin (Levaquin 250 Mg Premixed Ivpb -) 50 mls @ 50 mls/hr IVPB DAILY [facility] Last Admin: 05/16/17 10:04 Dose: 50 mls/hr Dextrose/Sodium Chloride (D5-1/2ns -) 1,000 mls @ 50 mls/hr IV ASDIR [facility] Last Admin: 05/14/17 20:35 Dose: 50 mls/hr Pantoprazole Sodium (Protonix Iv) 40 mg IVPUSH DAILY [facility] Last Admin: 05/16/17 10:05 Dose: 40 mg Risperidone (Risperdal -) 0.25 mg PO Q12H [facility] Last Admin: 05/16/17 10:02 Dose: 0.25 mg Laboratory Results - last 24 hr 05/16/17 08:00 Sodium 141 Potassium 3.9 Chloride 107 Carbon Dioxide 27 Anion Gap 7 L BUN 14 Creatinine 0.9 Random Glucose 102 Calcium 8.8 Vital Signs Temperature 98.9 F 05/16/17 15:43 Pulse Rate 61 05/16/17 15:43 Respiratory Rate 18 05/16/17 15:43 Blood Pressure 130/60 05/16/17 15:43 O2 Sat by Pulse Oximetry (%) 97 05/16/17 08:52 CC: poorly expressive `````````````````````````` skin-- rash on neck crease; buttock sore head--NC eyes--midline oral--tongue coated lungs--poor insp; but non labored; no wheezes rhonchi heard heart--RR 2/6 syst M abd--soft, NT ext--no edema neuro--alert cognitively limited/impaired and poorly mobile; not fully able to make his needs met; he is able to move extremities on command (to a degree). No gross motor deficits, tremors. `````````````````````````````````````````````` Summ > Cough--2nd aspiration to thinner liquids; f/u CXR stable. This is superimposed on chronic bronchitis and chronic dysphagia (likely as a result of past CVA's). PLAN: cont current Neb Tx; IV Abs; Dysph diet; incentive spirometry ; hope to d/c in AM. > Htn--Bp seems adequately controlled with lower dose BB & CCB > Decubitus ulcer--buttock; due to immobility and inability to self position and lack of awareness. he is getting topical Treatment at this time, but at the time of D/c home; he will greatly benefit from an Air-mattress; which will serve to help in the healing; and to better off-load body pressure in a situation where frequent position changes cannot be effective in the healing process on a regular mattress. This will also serve to avoid complications and further re-admissions as a result. Will get VNS at discharge time > Dementia--with agitation; quelled with either Haldol or xanax; became agitated this AM; did not take much pf his AM meds; now seems calmer. > Thrombocythemia--essential?; counts controlled with Hydrea > Dysphagia--longstanding; has "SILENT" aspiration to thin liquids. > Fail thrive--exacerbating cause possibly due to a state of infection of unknown organism. 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 Code(s): I69.991 - DYSPHAGIA FOLLOWING UNSPECIFIED CEREBROVASCULAR DISEASE (5) Bronchitis, chronic Code(s): J42 - UNSPECIFIED CHRONIC BRONCHITIS Qualifiers: Chronic bronchitis type: unspecified Qualified Code(s): J42 - Unspecified chronic bronchitis; J42 - Unspecified chronic bronchitis; J42 - Unspecified chronic bronchitis; J42 - Unspecified chronic bronchitis (6) Dementia with behavioral disturbance Code(s): F03.91 - UNSPECIFIED DEMENTIA WITH BEHAVIORAL DISTURBANCE Qualifiers : Dementia type: vascular dementia Qualified Code(s): F01.51 - Vascular dementia with behavioral disturbance; F01.51 - Vascular dementia with behavioral disturbance; F01.51 - Vascular dementia with behavioral disturbance (7) Essential thrombocythemia Code(s): D47.3 - ESSENTIAL (HEMORRHAGIC) THROMBOCYTHEMIA (8) GERD (gastroesophageal reflux disease) Code(s): K21.9 - GASTRO-ESOPHAGEAL REFLUX DISEASE WITHOUT ESOPHAGITIS Qualifiers: Esophagitis presence: esophagitis presence not specified Qualified Code(s): K21.9 - Gastro-esophageal reflux disease without esophagitis; K21.9 - Gastro-esophageal reflux disease without esophagitis; K21.9 - Gastro-esophageal reflux disease without esophagitis (9) Generalized weakness Code(s): R53.1 - WEAKNESS (10) Confusion state Code(s): F44.89 - OTHER DISSOCIATIVE AND CONVERSION DISORDERS (11) Mobility impaired Code(s): Z74.09 - OTHER REDUCED MOBILITY (12) Decubitus skin ulcer Code(s): L89.90 - PRESSURE ULCER OF UNSPECIFIED SITE, UNSPECIFIED STAGE Qualifiers: Pressure ulcer location: buttock Pressure ulcer stage: stage 2
[2017-05-16] MEDS: DEXTROSE 5%-0.45% SALINE 1,000 ML IV SCH (18:39)
[2017-05-16] MEDS ORDERED: PT OWN MED DRAWER 7, Y5N ONE (22:24)
[2017-05-17] MEDS: ALBUTEROL SO4 2.5/IPRATROPIUM 0.5 INH SOL 3 ML VIAL.NEB. NEB SCH ×2 (06:33→13:58)
[2017-05-17 09:14] VITALS: BP 133/66; PULSE 64; TEMP 97.2
[2017-05-17] MEDS ORDERED: PT OWN MED DRAWER 7, Y5N ONE ×2 (09:48→09:50)
[2017-05-17] MEDS: PANTOPRAZOLE SODIUM 40 MG VIAL IVPUSH SCH (09:53)
[2017-05-17] MEDS: LEVOFLOXACIN 250 MG IVPB 50 ML IVPB SCH (09:53)
[2017-05-17] MEDS: amLODIPine BESYLATE 2.5 MG TABLET (FP) PO SCH (09:58)
[2017-05-17] MEDS: ALLOPURINOL 300 MG TABLET (FP) PO SCH (09:58)
[2017-05-17] MEDS: ESCITALOPRAM OXALATE 10 MG TABLET (FP) PO SCH (09:58)
[2017-05-17] MEDS: HYDROXYUREA 500 MG CAPSULE PO SCH (09:58)
[2017-05-17] MEDS: risperiDONE 0.25 MG TABLET (FP) PO SCH (09:59)
[2017-05-17] MEDS: ATENOLOL 25 MG TABLET (FP) PO SCH (09:59)
[2017-05-17] MEDS: ASPIRIN 81 MG CHEWABLE TABLETS PO SCH (10:00)
[2017-05-17] MEDS: HEPARIN NA (PORCINE) 5,000 UNITS/ML 1ML VIAL SQ SCH (10:12)
[2017-05-17] MEDS: HYDROCORTISONE 0.5% TOPICAL CREAM 30 GM TUBE TP SCH (10:13)
--- NOTE | 2017-05-17 12:21 | DS ---
Physical Examination Vital Signs: Vital Signs Temperature 97.2 F L 05/17/17 09:13 Pulse Rate 64 05/17/17 09:13 Respiratory Rate 18 05/17/17 09:13 Blood Pressure 133/66 05/17/17 09:13 O2 Sat by Pulse Oximetry (%) 94 L 05/16/17 21:00 Constitutional: Yes: No Distress, Calm Eyes: Yes: Conjunctiva Clear Cardiovascular: Yes: Regular Rate and Rhythm, Murmur Respiratory: Yes: Diminished (unlabored) Gastrointestinal: Yes: Soft Extremities: Yes: WNL Edema: LUE: Trace, RUE: Trace, LLE: Trace, RLE: Trace Integumentary: Yes: Rash (buttock) Neurological: Yes: Alert (cognition impaired) Labs: CBC, BMP 05/14/17 09:35 05/16/17 08:00 Discharge Summary Reason For Visit: ASPIRATION PNEUMONIA Current Active Problems aspiration bronchitis Cough due to bronchospasm (Acute) Decubitus skin ulcer (Acute) HTN dementia with behavior componenet lipidemia thrombocytosis dysphagia s/p multiple CVA immobility toxic metabolic MS changes Other Procedures: modified barium swallow Hospital Course: Came to the emergency room BIBA from home with his and children who state that the patient has been congested and coughing over the past 3 days, and has grown more and more listless to the point where he hasn't been eating or drinking in the past 1-2 days. The cough was moist. No fever was taken. The W/u revealed no radiographic PNA but tracheal secretions noted on chest CT. he was seen by [facility], and had MBS showing aspiration to thin & nectar liquids. he was upgraded to honey consistency & puree diet. Blood work was benign, as were his VS. His behavior fluctuated and required PRN anxiolytics. He was found to have a pressure sore of the buttock and a foam dressing was applied, an air-matress was ordered for home. VNS was ordered to f/u. Condition: Improved - Instructions Diet, Activity, Other Instructions: honey thickened liquids; feed as upright as possible change buttock dressing daily use incentive spirometer crush all medications when possible 2 new pills ordered and dressing for bed sore Use lowest doses of the 2 blood pressure pills Referrals: Manuel Galloway MD [Primary Care Provider] - Disposition: HOME - Home Medications Comprehensive Discharge Medication List: Ambulatory Orders Allopurinol [Zyloprim -] 300 mg PO DAILY 09/24/14 Atorvastatin Ca [Lipitor] 20 mg PO HS 09/24/14 Pantoprazole Sodium [Protonix -] 40 mg PO DAILY #14 tablet.ec 07/22/16 Aspirin [ASA -] 81 mg PO DAILY 08/02/16 Atenolol [Tenormin] 50 mg PO DAILY 08/02/16 Alprazolam 1 mg PO DAILY PRN #30 tablet MDD 1 01/02/17 Hydroxyurea [Hydrea 500Mg Capsule -] 500 mg PO DAILY #30 cap MDD 1 01/02/17 Docusate Sodium [Colace -] 100 mg PO BID 05/13/17 Risperidone .25mg Qd Haloperidol [Haldol -] 2 mg PO BID PRN107/13/16 Lexapro 20mg Qd Prn
[2017-05-17] MEDS: HALOPERIDOL LACTATE 5 MG/ML IM PRN (12:53)
== END 2017-05-17 14:44 | disposition home or self-care (01) | DRG 206 ==
LOC: JER 12:28 → JERBED 15:30 → OBSVTOIN 15:30 → J6S 18:48
PROVIDERS: ADMIT Internal Medicine; ATTEND Internal Medicine
DX: J68.0 Bronchitis and pneumonitis due to chemicals, gases, fumes and vapors (principal); F03.91 Unspecified dementia, unspecified severity, with behavioral disturbance; I12.9 Hypertensive chronic kidney disease with stage 1 through stage 4 chronic kidney disease, or unspecified chronic kidney disease; N18.9 Chronic kidney disease, unspecified; I69.991 Dysphagia following unspecified cerebrovascular disease; D47.3 Essential (hemorrhagic) thrombocythemia; K21.9 Gastro-esophageal reflux disease without esophagitis; R53.1 Weakness; R62.7 Adult failure to thrive
CPT/HCPCS: 36415; 71010-TC; 71250-TC; 74230-TC; 80048; 80053; 81003; 83036; 83605; 84443; 85025; 85027; 87040; 87086; 87804; 90688; 92611-GN; 93005; 93010; 94640; 99283-25; G0008; J1644; J8999

== ENCOUNTER 2017-09-15 17:11 | Inpatient (IN) | payer OTHER, BC ==
[2017-09-15] MEDS ORDERED: RAPID SEQUENCE INTUBATION KIT NR ONE (17:19)
[2017-09-15] MEDS ORDERED: AZTREONAM 2 GM in DEXTROSE 5%-WATER - 100 ML IV ONE (17:28)
--- NOTE | 2017-09-15 17:34 | PDOC ---
Attending Attestation - HPI HPI: 09/15/17 19:03 The patient is a 81-year-old male with a significant past medical history of CVA , hypertension, hyperlipidemia, and aspiration pneumonia, who presents to the emergency department for respiratory distress since this afternoon. As per EMS, the patient was found unresponsive at the scene, with a red substance around his mouth. As per family members, the patient had difficulty breathing last night but notes that his O2 sat stabilized when he went to bed. Family also states the patient was hypotensive yesterday. Family states that the patient was sleeping and unresponsive this morning, but notes that when he woke up he began to cough and the O2 level dropped. EMS states they put him on CPAP but his O2 sat continued to drop. Upon arrival patient is being bagged. Patient has no history of intubations, smoking, COPD. Patient was intubated in the ED. - Physicial Exam PE: 09/15/17 19:08 General Appearance: well nourished well developed, (+) Unresponsive. (+) Moaning. Head: Atraumatic, normocephalic Eyes: Pupils equal reactive round Cardiac: Regular rate and rhythm, no murmurs, no rubs, no gallops, Lungs: (+) Decreased breath sounds on the left. (+) Agonal respirations. Abdomen: Soft, nondistended, normal bowel sounds Extremities: no cyanosis, clubbing, or edema Skin: Warm and dry, no rashes or lesions, no petechiae Neuro: (+) Withdraws to pain only. - Medical Decision Making 09/15/17 19:01 ICU CONSULTED AND ACCEPTED ADMISSION AT 6:16 (spoke with DR. RICK) 09/15/17 19:12 Dr. Galloway was paged at 6:37pm, 6:54 pm, and 7:14pm. Waiting for call back. <Olivia Wakefield - Last Filed: 09/15/17 19:12> - Resident Resident Name: Rocky Klein - ED Attending Attestation I have performed the following: I have examined & evaluated the patient, The case was reviewed & discussed with the resident, I agree w/resident's findings & plan, Exceptions are as noted - Critical Care Time Total Critical Care Time: 95 Critical Care Statement: The care of this patient involved high complexity decision making to prevent further life threatening deterioration of the patient 's condition and/or to evaluate & treat vital organ system(s) failure or risk of failure. - Medical Decision Making 81 years old past medical history significant for multiple CVAs hypertension hyperlipidemia multiple admissions for aspiration pneumonia presents to the emergency department with 2 day history of cough progressively worsening respiratory depression and today with altered mental status unresponsive. EMS called to house upon arrival to the emergency Department patient with agonal respirations responding only to painful stimulation decision made to intubate patient Pt. intubated via RSI with succinylcholine and etomidate patient's, intubated with no complications Sepsis order set initiated head CT chest x-ray initiated Large amount vomited noted in patient's airway patient empirically started with Aztreonam and vancomycin for presumed aspiration pneumonia 30 mL per Kg fluid bolus ordered Head CT ordered with no acute findings Chest x-ray demonstrates aspiration pneumonia Interpreted by me EKG performed at 1854 demonstrates rate of 79, rhythm of sinus rhythm, axis equal to normal. No ST elevations no T-wave inversions Interpreted by me Nilesh Gruber called back 7:45 PM accepted Pt Admit to ICU for definitive management. <Mu Ruelas - Last Filed: 09/15/17 20:01>
[2017-09-15] MEDS ORDERED: SODIUM CHLORIDE 0.9% 1000 ML INFUS.BAG IV STA (17:52)
[2017-09-15 18:07] LABS: BASO % 0.4 % (0-2.0); EOS % 0.5 % (0-4.5); HEMATOCRIT 36.6 % (35.4-49); HEMOGLOBIN 12.3 GM/dL (11.7-16.9); LYMPH % 6.7 % (8-40); MCH 37.9 pg (25.7-33.7); MCHC 33.5 g/dl (32.0-35.9); MEAN CELL VOLUME 112.9 fl (80-96); MEAN PLT VOLUME 8.7 fl (7.5-11.1); MONO % 4.9 % (3.8-10.2); NEUT % 87.5 % (42.8-82.8); PLATELET COUNT 385 K/MM3 (134-434); RBC 3.24 M/mm3 (4.00-5.60); RDW 15.1 % (11.9-15.9); WHITE BLOOD COUNT 18.1 K/mm3 (4.0-10.0)
[2017-09-15 18:16] LABS: ADD RBC MORPHOLOGY YES
[2017-09-15 18:25] LABS: INR 1.18 (0.82-1.09); PROTHROMBIN TIME (PATIENT) 13.3 SEC (9.98-11.88)
--- NOTE | 2017-09-15 18:25 | PDOC ---
History of Present Illness - General Chief Complaint: Shortness of Breath Stated Complaint: RESPIRATORY DISTRESS Time Seen by Provider: 09/15/17 17:19 History Source: EMS, Old Records Exam Limitations: Clinical Condition - History of Present Illness Initial Comments: 09/15/17 18:49 Patient is a 81M with history of HTN, CVA, multiple aspiration pneumonias, HLD, agitated dementia, GI bleed here today with respiratory distress. EMS reports the patient was found in the field with an spO2 of 78%. CPAP was attempted in the field, but the patient was not able to comply. IV access was lost in the field so RSI was not attempted. Patient was placed on BVM. Vomit was noted around patient's mouth. Past History - Past Medical History Allergies/Adverse Reactions: Allergies Allergy/AdvReac Type Severity Reaction Status Date / Time Penicillins Allergy Mild Nausea Verified 05/13/17 13:08 Home Medications: Ambulatory Orders Allopurinol [Zyloprim -] 300 mg PO DAILY 09/24/14 Atorvastatin Ca [Lipitor] 20 mg PO HS 09/24/14 Pantoprazole Sodium [Protonix -] 40 mg PO DAILY #14 tablet.ec 07/22/16 Aspirin [ASA -] 81 mg PO DAILY 08/02/16 Atenolol [Tenormin] 50 mg PO DAILY 08/02/16 Alprazolam 1 mg PO DAILY PRN #30 tablet MDD 1 01/02/17 Hydroxyurea [Hydrea 500Mg Capsule -] 500 mg PO DAILY #30 cap MDD 1 01/02/17 Docusate Sodium [Colace -] 100 mg PO BID 05/13/17 Haloperidol [Haldol -] 2 mg PO BID 05/13/17 Escitalopram Oxalate [Lexapro -] 20 mg PO DAILY #30 tablet 05/17/17 Foam Bandage [Optifoam] 1 each TP DAILY #30 bandage 05/17/17 Risperidone [Risperdal -] 0.25 mg PO BID #60 tablet 05/17/17 Anemia: No Asthma: No Cancer: No Cardiac Disorders: No CVA: Yes (TIA X2, Ataxia) COPD: No CHF: No Dementia: No Diabetes: No GI Disorders: Yes (GI bleed) Disorders: No HTN: Yes Hypercholesterolemia: Yes Liver Disease: No Psychiatric Problems: Yes (AXIETY, DEPRESSION) Seizures: No Thyroid Disease: No - Surgical History Abdominal Surgery: No Appendectomy: No Cardiac Surgery: No Cholecystectomy: No Lung Surgery: No Neurologic Surgery: No Orthopedic Surgery: No - Immunization History Immunization Up to Date: Yes - Suicide/Smoking/Psychosocial Hx Smoking Status: No Smoking History: Unknown if ever smoked Have you smoked in the past 12 months: No Number of Cigarettes Smoked Daily: 0 Information on smoking cessation initiated: No Hx Alcohol Use: No Drug/Substance Use Hx: No Substance Use Type: None Hx Substance Use Treatment: No Review of Systems - Review of Systems Able to Perform ROS?: No (2/2 clinical condition) *Physical Exam - Vital Signs Last Vital Signs Temp Pulse Resp BP Pulse Ox 89 22 133/79 90 L 09/15/17 17:15 09/15/17 17:52 09/15/17 17:15 09/15/17 17:15 - Physical Exam Comments: 09/15/17 18:52 GENERAL: Minimally responsive, vomit around mouth HEAD: No signs of trauma, normocephalic, atraumatic EYES: PERRLA, EOMI, sclera anicteric, conjunctiva clear ENT: Auricles normal inspection, hearing grossly normal, nares patent, oropharynx with yellow vomit NECK: Normal ROM, supple, no lymphadenopathy, JVD, or masses LUNGS: Tachypneic, bilateral rales HEART: Regular rate and rhythm, normal S1 and S2, no murmurs, rubs or gallops, peripheral pulses normal and equal bilaterally. ABDOMEN: Soft, nontender, normoactive bowel sounds. No guarding, no rebound. No masses NEUROLOGICAL: Moves all extremities from pain, eyes closed, no comprehensible words SKIN: Warm, Dry, normal turgor, no rashes or lesions noted. Procedures - Intubation Time of Intubation: 17:30 Intubation Method: nasotracheal Blade used: Patel Tube Size (Fr): 7.5 Medications: Etomidate, Succinylcholine Tube position @ lip (cm): 22 Tube position confirmed by: Direct visualization, CO2 detector, Chest x-ray, Breath sounds Breath Sounds after Intubation: equal Intubation Complications: no complications Post Intubation Xray: Yes (LLL pneumonia, tube appropriately placed) ED Treatment Course - LABORATORY CBC & Chemistry Diagram: 09/15/17 17:45 09/15/17 17:45 - ADDITIONAL ORDERS Additional order review: Laboratory Results 09/15/17 17:35 Anticoagulation Therapy No Result Required. O2 Delivery Device No Result Required. Oxygen Flow Rate No Result Required. Vent Mode No Result Required. Vent Rate No Result Required. Mechanical Rate No Result Required. Pressure Support Vent No Result Required. 09/15/17 17:45 RBC 3.24 L MCV 112.9 H MCHC 33.5 RDW 15.1 MPV 8.7 D Neutrophils % 87.5 H D Lymphocytes % 6.7 L D Monocytes % 4.9 Eosinophils % 0.5 D Basophils % 0.4 Medical Decision Making - Critical Care Time Total Critical Care Time (minutes): 90 Critical Care Statement: The care of this patient involved high complexity decision making to prevent further life threatening deterioration of the patient 's condition and/or to evaluate & treat vital organ system(s) failure or risk of failure. - Medical Decision Making 09/15/17 18:58 Patient is a 81M with history of HTN, CVA, aspiration PNA, HLD, agitated dementia and GI bleed presented in respiratory distress. A: Patient not protecting his airway, getting BVM on 100% 15L B: Equal breath sounds bilaterally, rales bilaterally C: 2 IV lines placed, labs drawn, BP stable D: Lethargic, moving from pain E: No obvious injuries noted Patient was intubated for airway protection and respiratory failure. NG tube placed. BP 170/110, agitated, given 50mcg of propofol for sedation. Repeat BP 90 /60. Planned propofol drip held, 2L fluids given. Repeat BPs stable. Taken to CT. My wet read of CT head showed no acute bleed. Patient taken back to resuscitation bay. CXR shows appropriately placed ET tube with lower left lobe pneumonia. Aztreonam started for aspiration pneumonia. Patient still not requiring propofol drip for sedation. EKG shows normal sinus rhythm, left anterior fascicular block. No st elevations/ depressions. Inverted t wave in aVL. Normal rate. Normal ID, QRS, QTc intervals. 09/15/17 19:11 Laboratory Tests 09/15/17 09/15/17 09/15/17 17:35 17:45 17:45 WBC 18.1 H D Hgb 12.3 Hct 36.6 Plt Count 385 INR 1.18 H ABG pCO2 at Pt Temp 42.6 ABG pO2 at Pt Temp 80.0 Lactic Acid 09/15/17 17:45 WBC Hgb Hct Plt Count INR ABG pCO2 at Pt Temp ABG pO2 at Pt Temp Lactic Acid 1.8 CBC shows leukocytosis. ABG shows normal pco2 and po2 levels, with low po2 on vbg, suggests large amount oxygen demand. Lactic acid normal. CMP hemolyzed, pending redraw. 09/15/17 19:43 Admitted to ICU via Dr Llanes. *DC/Admit/Observation/Transfer Diagnosis at time of Disposition: Sepsis - Discharge Dispostion Condition at time of disposition: Critical Admit: Yes - Referrals Referrals: Manuel Galloway MD [Primary Care Provider] - - Patient Instructions - Post Discharge Activity
[2017-09-15 18:27] LABS: VENOUS PC02 54.6 mmHg (38-52); VENOUS PH 7.35 (7.32-7.42)
[2017-09-15 18:28] LABS: VENOUS PO2 23.5 mmHg (28-48)
[2017-09-15 18:28] LABS: ACTIVATED PTT 31.8 SECONDS (26.9-34.4)
[2017-09-15 18:30] LABS: ARTERIAL BLD GAS O2 SATURATION 95.2 % (90-98.9); ARTERIAL BLOOD GAS BASE EXCESS 2.1 meq/l (-2-2); ARTERIAL BLOOD GAS PCO2 42.6 mmHg (35-45); ARTERIAL BLOOD GAS pH 7.41 (7.35-7.45); CARBOXYHEMOGLOBIN 1.4 gm% (0.5-2.0)
[2017-09-15 18:31] LABS: ALLENS TEST POSITIVE
[2017-09-15] MEDS ORDERED: VANCOMYCIN 1,000 MG in DEXTROSE 5%-WATER - 250 ML IVPB ONE (18:36)
[2017-09-15] MEDS ORDERED: ACETAMINOPHEN 1000 MG/100 ML VIAL (NON FORMULARY) IVPB ONE (19:10)
[2017-09-15 19:49] LABS: ALBUMIN 2.5 g/dl (3.4-5.0); ANION GAP 9 (8-16); BILIRUBIN,TOTAL 1.3 mg/dL (0.2-1.0); BLOOD UREA NITROGEN 44 mg/dL (7-18); CALCIUM 8.6 mg/dL (8.5-10.1); CHLORIDE 108 mmol/L (98-107); CO2 27 mmol/L (21-32); CREATININE 1.4 mg/dL (0.7-1.3); GLUCOSE,RANDOM 124 mg/dL (74-106); POTASSIUM 4.1 mmol/L (3.5-5.1); SGOT/AST 99 U/L (15-37); SGPT/ALT 57 U/L (12-78); SODIUM 144 mmol/L (136-145)
[2017-09-15 19:53] LABS: ALK PHOS 80 U/L (45-117); TOT PROT 6.8 g/dl (6.4-8.2)
[2017-09-15] MEDS ORDERED: ACETAMINOPHEN INJECTION 100 ML IVPB ONE (19:53)
[2017-09-15] MEDS ORDERED: VANCOMYCIN 1 GRAM (PRE-DOCKED) 1,000 MG/250 ML BAG IVPB ONE (19:53)
[2017-09-15 20:26] LABS: URINE APPEARANCE SLCLOUDY; URINE BILIRUBIN NEGATIVE (NEGATIVE); URINE BLOOD NEGATIVE (NEGATIVE); URINE COLOR YELLOW; URINE GLUCOSE (UA) NEGATIVE (NEGATIVE); URINE KETONE NEGATIVE (NEGATIVE); URINE NITRITE NEGATIVE (NEGATIVE); URINE PROTEIN NEGATIVE (NEGATIVE); URINE UROBILINOGEN NEGATIVE mg/dL (0.2-1.0)
[2017-09-15] MEDS: PROPOFOL 1,000,000 MCG/100 ML VIAL IVPB SCH ×2 (20:28→22:26)
[2017-09-15 20:30] LABS: URINE LEUK ESTERASE 2+ (NEGATIVE)
[2017-09-15 20:32] LABS: EPI CELLS RARE /HPF (FEW); URINE BACTERIA RARE /hpf (NONE SEEN); URINE MUCUS RARE
[2017-09-15] MEDS ORDERED: ETOMIDATE 20 MG/10 ML AMPUL IVPUSH ONE (21:00)
[2017-09-15] MEDS ORDERED: SUCCINYLCHOLINE CHLORIDE 200 MG/10 ML VIAL IVPUSH ONE (21:00)
--- NOTE | 2017-09-15 21:25 | HP ---
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 History of Present Illness: Patient is a cognitively impaired & homebound 81M (functional quadroplegic)of multiple ischemic CVA's, HTn, lipidemia, with Hx of multiple aspiration pneumonias, past Hx GI bleed here today with abrupt respiratory distress and increased obtundation since the early AM today. Family called EMS ([phone]) when he grew unresponsive and BP began to drop. He himself did not express any specific complaint. En route to the ER, he became unstable (low BP and O2 desat). Upon arrival, he was intubated and placed on [facility] ventilation. He was found to be febrile. He was pancultured and IV Abs administered. He was admitted various times in the past for states of infection which cause him either to become lethargic or severely agitated that he cannot be managed at home. 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 Cardiovascular: Yes: HTN, Hyperlipdemia Pulmonary: Yes: Bronchitis Gastrointestinal: Yes: GI Bleed (History of) Renal/: Yes: Renal Inusuff (mild), UTI Heme/Onc: Yes: Other (essential thrombocythemia) Infectious Disease: Yes: Other (UTI; asp PNA) Psych: Yes: Anxiety, Depression, Other (dementia with behavior component) Musculoskeletal: Yes: Other (Gait dysfunction likely 2nd old CVA) Rheumatology: Yes: Gout - Smoking History Smoking history: Unknown if ever smoked Have you smoked in the past 12 months: No Aproximately how many cigarettes per day: 0 - Alcohol/Substance Use Hx Alcohol Use: No History of Substance Use: reports: None - Social History Usual Living Arrangement: Yes: With Spouse 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 Home Medications - Allergies Allergies/Adverse Reactions: Allergies Allergy/AdvReac Type Severity Reaction Status Date / Time Penicillins Allergy Mild Nausea Verified 05/13/17 13:08 - Home Medications Home Medications: Ambulatory Orders Allopurinol [Zyloprim -] 300 mg PO DAILY 09/24/14 Atorvastatin Ca [Lipitor] 20 mg PO HS 09/24/14 Pantoprazole Sodium [Protonix -] 40 mg PO DAILY #14 tablet.ec 07/22/16 Aspirin [ASA -] 81 mg PO DAILY 08/02/16 Atenolol [Tenormin] 50 mg PO DAILY 08/02/16 Alprazolam 1 mg PO DAILY PRN #30 tablet MDD 1 01/02/17 Hydroxyurea [Hydrea 500Mg Capsule -] 500 mg PO DAILY #30 cap MDD 1 01/02/17 Docusate Sodium [Colace -] 100 mg PO BID 05/13/17 Haloperidol [Haldol -] 2 mg PO BID 05/13/17 Escitalopram Oxalate [Lexapro -] 20 mg PO DAILY #30 tablet 05/17/17 Foam Bandage [Optifoam] 1 each TP DAILY #30 bandage 05/17/17 Risperidone [Risperdal -] 0.25 mg PO BID #60 tablet 05/17/17 Family Disease History - Family Disease History Family Disease History: Heart Disease: Mother (CHF) Review of Systems Findings/Remarks: unable to obtain 2nd lethargy & endotracheal intubation. Physical Examination Vital Signs: Vital Signs Temperature 102.7 F H 09/15/17 17:11 Pulse Rate 80 09/15/17 18:29 Respiratory Rate 22 09/15/17 17:52 Blood Pressure 113/67 09/15/17 18:29 O2 Sat by Pulse Oximetry (%) 90 L 09/15/17 17:15 Findings/Remarks: skin--no acute lesions appreciated head--Nc eyes--midline oral--with ET tube nose--with NGT neck--no palp masses lungs--bilat BS heard; vented heart--RR abd--BS quiet; soft, NT, ND --NL anatomy for age; with Abernathy in place draining urine back--no soft tissue or cain tenderness appreciated ext--bilat atrophic musculature of the LE's; no soft tissue tenderness; no pain on ROM; periph pulses felt but weak; no acute ischemia; edema or cyanosis Neuro--awake but somewhat stuperous; able to react to presence of others at bedside; does not follow commands; sedate (not combative or agitated) no hypertonicity of musculature; no gross abnl reflexes; no clonus appreciated; (+ ) corneal reflex. Labs: CBC, BMP 09/15/17 17:45 09/15/17 18:47 Imaging - Results Chest X-ray: Report Reviewed Cat Scan: Report Reviewed Problem List - Problems (1) Delirium due to another medical condition Assessment/Plan: altered MS; confusion followed by unstable VS--likely due to state of infection. PLAN: Vent support; Abs; fluids Code(s): F05 - DELIRIUM DUE TO KNOWN PHYSIOLOGICAL CONDITION (2) Aspiration pneumonia Assessment/Plan: With acute resp failure requring intubation; has previous past Hx; based on past CVA which has resulted in swallowing dysf. PLAN: Abs; vent support; Pulm consult Code(s): J69.0 - PNEUMONITIS DUE TO INHALATION OF FOOD AND VOMIT (3) Acute respiratory failure with hypoxemia Assessment/Plan: see above: PLAN vent support; Abs; Pulm consult Code(s): J96.01 - ACUTE RESPIRATORY FAILURE WITH HYPOXIA (4) Sepsis Assessment/Plan: presents with "septic" appearance; cultures taken PLAN: IV Abs; ID consult Code(s): A41.9 - SEPSIS, UNSPECIFIED ORGANISM Qualifiers: (5) Benign hypertensive renal disease Assessment/Plan: BP usually well controlled; has home BP machine and monitors it frequently Code(s): I12.9 - HYPERTENSIVE CHRONIC KIDNEY DISEASE W STG 1-4/UNSP CHR KDNY (6) CVA (cerebral vascular accident) Assessment/Plan: multiple lacune infarcts over a long period of time; has resulted in dimnished cognition; motor impairment; dysphagia; impaired judgment, and gen'l dependence with all ADLs. He is cared for by his who seems to be meeting all his basic needs at home. Code(s): I63.9 - CEREBRAL INFARCTION, UNSPECIFIED Qualifiers: Qualified Code(s): I63.9 - Cerebral infarction, unspecified (7) Dementia with behavioral disturbance Assessment/Plan: has bouts of acute agitation, outbursts which are quelled by use of Haldol & Xanax prn (this regimen has been in place for many yrs) Code(s): F03.91 - UNSPECIFIED DEMENTIA WITH BEHAVIORAL DISTURBANCE Qualifiers: Qualified Code(s): F01.51 - Vascular dementia with behavioral disturbance (8) Dysphagia as late effect of cerebrovascular disease Assessment/Plan: on pureed with thickened liquids to honey Code(s): I69.991 - DYSPHAGIA FOLLOWING UNSPECIFIED CEREBROVASCULAR DISEASE (9) Essential thrombocythemia Assessment/Plan: not new; controlled with Hydrea Code(s): D47.3 - ESSENTIAL (HEMORRHAGIC) THROMBOCYTHEMIA Assessment/Plan Patient is an acutely ill 81M with resp failure; septic syndrome; azotemia; bacturia; mild rhabdo; probably triggered by acute lung infection. He is now intubated and needs to be cared for in the ICU. Family present and discussed condition & prognosis. They wish for him to be a "full code". No advanced directives in place ~~~~~~~~~~~~~~~~~~~~~~~~~~~~~ Dr Galloway
[2017-09-15] MEDS ORDERED: PNEUMOC 13-VAL CONJ-DIP CRM/PF 0.5 ML DISP.SYRIN IM ONE (22:01)
[2017-09-15 22:02] VITALS: BMI 22.6
[2017-09-15] MEDS ORDERED: HALOPERIDOL LACTATE 5 MG/ML IM PRN (22:05)
[2017-09-15] MEDS ORDERED: METOPROLOL TARTRATE 5 MG/5 ML VIAL IVPB PRN (22:07)
[2017-09-15 22:12] LABS: MACROCYTOSIS 3+; PLATELET ESTIMATE ADEQUATE
[2017-09-15] MEDS: LACTATED RINGERS SOLUTION 1,000 ML/1,000 ML INFUS.BAG IV SCH (22:25)
[2017-09-15 22:46] LABS: ALLENS TEST POSITIVE; ARTERIAL BLD GAS O2 SATURATION 99.9 % (90-98.9); ARTERIAL BLOOD GAS BASE EXCESS 0.6 meq/l (-2-2); ARTERIAL BLOOD GAS PCO2 37.3 mmHg (35-45); ARTERIAL BLOOD GAS pH 7.43 (7.35-7.45)
--- NOTE | 2017-09-15 22:54 | CONSULT ---
Consult Consult Specialty:: PULM/CCM Referred by:: Dr. Manuel Galloway Reason for Consultation:: Resp Fail - History of Present Illness Chief Complaint: Resp FAIL History of Present Illness: Mr. 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 A/p report, the family called EMS (911) when he grew unresponsive and BP began to plummet. En route to the ER, the pt became completely unstable ( low BP and O2 desat). U/A he was intubated and placed on mech ventilation. He was found to be febrile. He was pancultured & started on Abx. Of note, the pt has been admitted various times in the past w/ AMS in multiple different states of infection. The pt is admitted to the ICU now w/ hypoxic Resp Fail m/l 2/2 asp pna given applesauce suctioned out of ETT. 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 Cardio/Vascular: Yes: HTN, Hyperlipdemia Pulmonary: Yes: Bronchitis Gastrointestinal: Yes: GI Bleed (History of) Renal/: Yes: Renal Inusuff (mild), UTI Infectious Disease: Yes: Other (UTI; asp PNA) Psych: Yes: Anxiety, Depression, Other (dementia with behavior component) Musculoskeletal: Yes: Other (Gait dysfunction likely 2nd old CVA) Rheumatology: Yes: Gout - Alcohol/Substance Use Hx Alcohol Use: No History of Substance Use: reports: None - Smoking History Smoking history: Unknown if ever smoked Have you smoked in the past 12 months: No Aproximately how many cigarettes per day: 0 - Social History Usual Living Arrangement: Senior Care 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 Home Medications - Allergies Allergies/Adverse Reactions: Allergies Allergy/AdvReac Type Severity Reaction Status Date / Time Penicillins Allergy Mild Nausea Verified 05/13/17 13:08 - Home Medications Home Medications: Ambulatory Orders Allopurinol [Zyloprim -] 300 mg PO DAILY 09/24/14 Atorvastatin Ca [Lipitor] 20 mg PO HS 09/24/14 Pantoprazole Sodium [Protonix -] 40 mg PO DAILY #14 tablet.ec 07/22/16 Aspirin [ASA -] 81 mg PO DAILY 08/02/16 Atenolol [Tenormin] 50 mg PO DAILY 08/02/16 Alprazolam 1 mg PO DAILY PRN #30 tablet MDD 1 01/02/17 Hydroxyurea [Hydrea 500Mg Capsule -] 500 mg PO DAILY #30 cap MDD 1 01/02/17 Docusate Sodium [Colace -] 100 mg PO BID 05/13/17 Haloperidol [Haldol -] 2 mg PO BID 05/13/17 Escitalopram Oxalate [Lexapro -] 20 mg PO DAILY #30 tablet 05/17/17 Foam Bandage [Optifoam] 1 each TP DAILY #30 bandage 05/17/17 Risperidone [Risperdal -] 0.25 mg PO BID #60 tablet 05/17/17 Family Disease History - Family Disease History Family History: Unable to Obtain (Intubated n the Vent) Family Disease History: Heart Disease: Mother (CHF) Review of Systems Unable to obtain ROS, reason: Intubated/sedated on Vent Physical Exam Vital Signs: Vital Signs Temperature 99.6 F 09/15/17 21:51 Pulse Rate 67 09/15/17 21:51 Respiratory Rate 18 09/15/17 21:51 Blood Pressure 111/65 09/15/17 21:51 O2 Sat by Pulse Oximetry (%) 100 09/15/17 20:30 Constitutional: Yes: Well Nourished, Poor Hygeine Eyes: Yes: WNL, PERRL HENT: Yes: WNL, Atraumatic, Normocephalic Neck: Yes: WNL, Supple, Trachea Midline Cardiovascular: Yes: WNL, Regular Rate and Rhythm Respiratory: Yes: WNL, CTA Bilaterally, Intubated, Mechanically Ventilated Gastrointestinal: Yes: Hypoactive Bowel Sounds ...Rectal Exam: Yes: Deferred Renal/: Yes: WNL Breast(s): Yes: WNL Musculoskeletal: Yes: WNL Extremities: Yes: WNL Edema: No Peripheral Pulses WNL: Yes Neurological: Yes: Other (Sedated on The Vent) ...Motor Strength: WNL Psychiatric: Yes: WNL Labs: CBC, BMP 09/15/17 17:45 09/15/17 18:47 Laboratory Tests 09/15/17 09/15/17 09/15/17 17:35 17:45 17:45 WBC 18.1 H D RBC 3.24 L Hgb 12.3 Hct 36.6 MCV 112.9 H MCH 37.9 H MCHC 33.5 RDW 15.1 Plt Count 385 MPV 8.7 D Neutrophils % 87.5 H D Lymphocytes % 6.7 L D Monocytes % 4.9 Eosinophils % 0.5 D Basophils % 0.4 Platelet Estimate Adequate Platelet Comment No clotting detected Macrocytosis 3+ PT with INR 13.30 H INR 1.18 H PTT (Actin FS) 31.8 Anticoagulation Therapy No Result Required. Puncture Site Left radial ABG pH 7.41 ABG pCO2 at Pt Temp 42.6 ABG pO2 at Pt Temp 80.0 ABG HCO3 26.5 H ABG O2 Sat (Measured) 95.2 ABG O2 Content 16.9 ABG Base Excess 2.1 H Markie Test Positive VBG pH POC VBG pCO2 POC VBG pO2 Mixed VBG HCO3 Carboxyhemoglobin 1.4 Methemoglobin 1.0 O2 Delivery Device No Result Required. Oxygen Flow Rate 100% fio2 Vent Mode No Result Required. Vent Rate No Result Required. Mechanical Rate No Result Required. PEEP Pressure Support Vent No Result Required. Sodium Potassium Chloride Carbon Dioxide Anion Gap BUN Creatinine Creat Clearance w eGFR Random Glucose Lactic Acid Calcium Total Bilirubin AST ALT Alkaline Phosphatase Creatine Kinase Creatine Kinase Index CK-MB (CK-2) Troponin I Total Protein Albumin Urine Color Urine Appearance Urine pH Ur Specific [place] Urine Protein Urine Glucose (UA) Urine Ketones Urine Blood Urine Nitrite Urine Bilirubin Urine Urobilinogen Ur Leukocyte Esterase Urine WBC (Auto) Urine RBC (Auto) Ur Epithelial Cells Urine Bacteria Urine Mucus 09/15/17 09/15/17 09/15/17 17:45 17:45 17:45 WBC RBC Hgb Hct MCV MCH MCHC RDW Plt Count MPV Neutrophils % Lymphocytes % Monocytes % Eosinophils % Basophils % Platelet Estimate Platelet Comment Macrocytosis PT with INR INR PTT (Actin FS) Anticoagulation Therapy Puncture Site ABG pH ABG pCO2 at Pt Temp ABG pO2 at Pt Temp ABG HCO3 ABG O2 Sat (Measured) ABG O2 Content ABG Base Excess Markie Test VBG pH POC VBG pCO2 POC VBG pO2 Mixed VBG HCO3 Carboxyhemoglobin Methemoglobin O2 Delivery Device Oxygen Flow Rate Vent Mode Vent Rate Mechanical Rate PEEP Pressure Support Vent Sodium Cancelled Potassium Cancelled Chloride Cancelled Carbon Dioxide Cancelled Anion Gap Cancelled BUN Cancelled Creatinine Cancelled Creat Clearance w eGFR Cancelled Random Glucose Cancelled Lactic Acid 1.8 Calcium Cancelled Total Bilirubin Cancelled AST Cancelled ALT Cancelled Alkaline Phosphatase Cancelled Creatine Kinase Creatine Kinase Index CK-MB (CK-2) Troponin I Cancelled Total Protein Cancelled Albumin Cancelled Urine Color Urine Appearance Urine pH Ur Specific [place] Urine Protein Urine Glucose (UA) Urine Ketones Urine Blood Urine Nitrite Urine Bilirubin Urine Urobilinogen Ur Leukocyte Esterase Urine WBC (Auto) Urine RBC (Auto) Ur Epithelial Cells Urine Bacteria Urine Mucus 09/15/17 09/15/17 09/15/17 17:47 18:47 20:10 WBC RBC Hgb Hct MCV MCH MCHC RDW Plt Count MPV Neutrophils % Lymphocytes % Monocytes % Eosinophils % Basophils % Platelet Estimate Platelet Comment Macrocytosis PT with INR INR PTT (Actin FS) Anticoagulation Therapy Puncture Site ABG pH ABG pCO2 at Pt Temp ABG pO2 at Pt Temp ABG HCO3 ABG O2 Sat (Measured) ABG O2 Content ABG Base Excess Markie Test VBG pH 7.35 POC VBG pCO2 54.6 H POC VBG pO2 23.5 L D Mixed VBG HCO3 29.4 H Carboxyhemoglobin Methemoglobin O2 Delivery Device Oxygen Flow Rate Vent Mode Vent Rate Mechanical Rate PEEP Pressure Support Vent Sodium 144 Potassium 4.1 Chloride 108 H Carbon Dioxide 27 Anion Gap 9 BUN 44 H D Creatinine 1.4 H D Creat Clearance w eGFR 48.89 Random Glucose 124 H D Lactic Acid Calcium 8.6 Total Bilirubin 1.3 H D AST 99 H D ALT 57 D Alkaline Phosphatase 80 D Creatine Kinase 566 H Creatine Kinase Index 0.1 CK-MB (CK-2) 1.037 Troponin I 0.05 D Total Protein 6.8 Albumin 2.5 L Urine Color Yellow Urine Appearance Slcloudy Urine pH 6.0 Ur Specific [place] 1.011 Urine Protein Negative Urine Glucose (UA) Negative Urine Ketones Negative Urine Blood Negative Urine Nitrite Negative Urine Bilirubin Negative Urine Urobilinogen Negative Ur Leukocyte Esterase 2+ H Urine WBC (Auto) 50 Urine RBC (Auto) 2 Ur Epithelial Cells Rare Urine Bacteria Rare Urine Mucus Rare 03/06/18 22:35 WBC RBC Hgb Hct MCV MCH MCHC RDW Plt Count MPV Neutrophils % Lymphocytes % Monocytes % Eosinophils % Basophils % Platelet Estimate Platelet Comment Macrocytosis PT with INR INR PTT (Actin FS) Anticoagulation Therapy Puncture Site Left radial ABG pH 7.43 ABG pCO2 at Pt Temp 37.3 ABG pO2 at Pt Temp 190.0 H* D ABG HCO3 24.3 ABG O2 Sat (Measured) 99.9 H* ABG O2 Content 15.2 ABG Base Excess 0.6 Markie Test Positive VBG pH POC VBG pCO2 POC VBG pO2 Mixed VBG HCO3 Carboxyhemoglobin Methemoglobin O2 Delivery Device Mech vent Oxygen Flow Rate 100% Vent Mode A/c Vent Rate 14 Mechanical Rate Yes PEEP 5.0 Pressure Support Vent 450 Sodium Potassium Chloride Carbon Dioxide Anion Gap BUN Creatinine Creat Clearance w eGFR Random Glucose Lactic Acid Calcium Total Bilirubin AST ALT Alkaline Phosphatase Creatine Kinase Creatine Kinase Index CK-MB (CK-2) Troponin I Total Protein Albumin Urine Color Urine Appearance Urine pH Ur Specific [place] Urine Protein Urine Glucose (UA) Urine Ketones Urine Blood Urine Nitrite Urine Bilirubin Urine Urobilinogen Ur Leukocyte Esterase Urine WBC (Auto) Urine RBC (Auto) Ur Epithelial Cells Urine Bacteria Urine Mucus Imaging - Results X-ray: Image Reviewed ([facility]XR 09/15: 1. No definite interval change from 12/25/[address] No acute intracranial hemorrhage, mass effects or hydrocephalus. No compelling evidence of acute transcortical infarction at this time. MRI is more sensitive in detecting acute infarction. 2. Generalized, age-related volume loss, moderate microvascular ischemic changes and chronic lacunar infarcts as above, similar to 12/25/2016. 3. Left maxillary sinus disease, as above. Please correlate clinically for acute sinusitis.) Cat Scan: Image Reviewed ([facility] 09/[facility]: 1. No definite interval change from [address] No acute intracranial hemorrhage, mass effects or hydrocephalus. No compelling evidence of acute transcortical infarction at this time. MRI is more sensitive in detecting acute infarction. 2. Generalized, age-related volume loss, moderate microvascular ischemic changes and chronic lacunar infarcts as above, similar to 12/25/2016. 3. Left maxillary sinus disease, as above. Please correlate clinically for acute sinusitis.) Problem List - Problems (1) Acute respiratory failure with hypoxemia Code(s): J96.01 - ACUTE RESPIRATORY FAILURE WITH HYPOXIA (2) Anxiety Code(s): F41.9 - ANXIETY DISORDER, UNSPECIFIED (3) Aspiration pneumonia Code(s): J69.0 - PNEUMONITIS DUE TO INHALATION OF FOOD AND VOMIT (4) CVA (cerebral vascular accident) Code(s): I63.9 - CEREBRAL INFARCTION, UNSPECIFIED Qualifiers: CVA mechanism: unspecified Qualified Code(s): I63.9 - Cerebral infarction, unspecified (5) Chronic kidney disease (CKD) Code(s): N18.9 - CHRONIC KIDNEY DISEASE, UNSPECIFIED (6) Dementia with behavioral disturbance Code(s): F03.91 - UNSPECIFIED DEMENTIA WITH BEHAVIORAL DISTURBANCE Qualifiers: Dementia type: vascular dementia Qualified Code(s): F01.51 - Vascular dementia with behavioral disturbance (7) Dysphagia as late effect of cerebrovascular disease Code(s): I69.991 - DYSPHAGIA FOLLOWING UNSPECIFIED CEREBROVASCULAR DISEASE (8) History of cerebrovascular accident with residual deficit Code(s): I69.30 - UNSPECIFIED SEQUELAE OF CEREBRAL INFARCTION (9) Multiple lacunar infarcts Code(s): I63.9 - CEREBRAL INFARCTION, UNSPECIFIED Assessment/Plan ASSESS: This is a 81 y/o Man w/ hypoxic resp failure; septic syndrome; azotemia ; bacturia; & mild rhabdo; m/l 2/2 asp pna. PLAN: -LPV Support -Nebs -Sedate for Vent Sync -F/u ABG -[place] Clxr -Abx -IVFs -Strict I's & O's -Ternd BUN/Cr -Replete e-lytes prn -PPI (Vent) -SQH -SCD's -Extubate & Transfer--> Med Sug in the AM DGL, ACNP-BC [facility] ICU PULM/CCM
[2017-09-16 07:12] LABS: HEMATOCRIT 30.4 % (35.4-49); HEMOGLOBIN 10.3 GM/dL (11.7-16.9); MCH 38.6 pg (25.7-33.7); MEAN CELL VOLUME 113.5 fl (80-96); MEAN PLT VOLUME 8.4 fl (7.5-11.1); PLATELET COUNT 307 K/MM3 (134-434); RBC 2.68 M/mm3 (4.00-5.60); WHITE BLOOD COUNT 19.8 K/mm3 (4.0-10.0)
[2017-09-16 07:13] LABS: ANION GAP 9 (8-16); BLOOD UREA NITROGEN 38 mg/dL (7-18); CALCIUM 7.8 mg/dL (8.5-10.1); CHLORIDE 109 mmol/L (98-107); CO2 24 mmol/L (21-32); CREATININE 0.9 mg/dL (0.7-1.3); GLUCOSE,RANDOM 102 mg/dL (74-106); POTASSIUM 3.7 mmol/L (3.5-5.1); SGOT/AST 63 U/L (15-37); SGPT/ALT 47 U/L (12-78); SODIUM 142 mmol/L (136-145)
[2017-09-16 07:23] LABS: ALK PHOS 63 U/L (45-117); BILIRUBIN,TOTAL 0.9 mg/dL (0.2-1.0); TOT PROT 5.7 g/dl (6.4-8.2)
--- NOTE | 2017-09-16 08:03 | CON.ID ---
Consult Consult Specialty:: Infectious Disease Referred by:: Primary Team Reason for Consultation:: Sepsis, PNA - History of Present Illness History of Present Illness: 81 y.o. M with pmh of HTN, HLD, ischemic CVA 1 year ago with cognitive impairment and functional impairment, multiple aspiration pna presented with increased respiratory distress, hypoxia, and obtundation yesterday morning. states she checks the patient's o2 status daily. Yesterday morning, the patient began becoming increasingly unresponsive and his O2 sat was dropping quickly. Family called EMS and en route patient become hypotensive and increasingly hypoxic. Patient was intubated and found to be febrile. He was bass cultured and started on IV abx. Patient has never been intubated in the past. 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 Cardio/Vascular: Yes: HTN, Hyperlipdemia Pulmonary: Yes: Bronchitis Gastrointestinal: Yes: GI Bleed (History of) Renal/: Yes: Renal Inusuff (mild), UTI Infectious Disease: Yes: Other (UTI; asp PNA) Psych: Yes: Anxiety, Depression, Other (dementia with behavior component) Musculoskeletal: Yes: Other (Gait dysfunction likely 2nd old CVA) Rheumatology: Yes: Gout - Alcohol/Substance Use Hx Alcohol Use: No History of Substance Use: reports: None - Smoking History Smoking history: Unknown if ever smoked Have you smoked in the past 12 months: No Aproximately how many cigarettes per day: 0 - Social History Usual Living Arrangement: [facility] 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 Home Medications - Allergies Allergies/Adverse Reactions: Allergies Allergy/AdvReac Type Severity Reaction Status Date / Time Penicillins Allergy Mild Nausea Verified 05/13/17 13:08 - Home Medications Home Medications: Ambulatory Orders Allopurinol [Zyloprim -] 300 mg PO DAILY 09/24/14 Atorvastatin Ca [Lipitor] 20 mg PO HS 09/24/14 Pantoprazole Sodium [Protonix -] 40 mg PO DAILY #14 tablet.ec 07/22/16 Aspirin [ASA -] 81 mg PO DAILY 08/02/16 Atenolol [Tenormin] 50 mg PO DAILY 08/02/16 Alprazolam 1 mg PO DAILY PRN #30 tablet MDD 1 01/02/17 Hydroxyurea [Hydrea 500Mg Capsule -] 500 mg PO DAILY #30 cap MDD 1 01/02/17 Docusate Sodium [Colace -] 100 mg PO BID 05/13/17 Haloperidol [Haldol -] 2 mg PO BID 05/13/17 Escitalopram Oxalate [Lexapro -] 20 mg PO DAILY #30 tablet 05/17/17 Foam Bandage [Optifoam] 1 each TP DAILY #30 bandage 05/17/17 Risperidone [Risperdal -] 0.25 mg PO BID #60 tablet 05/17/17 Family Disease History - Family Disease History Family Disease History: Heart Disease: Mother (CHF) Review of Systems Unable to obtain ROS, reason: Intubated/Sedated Physical Exam Vital Signs: Vital Signs Temperature 99.0 F 09/16/17 06:00 Pulse Rate 64 09/16/17 06:00 Respiratory Rate 14 09/16/17 06:38 Blood Pressure 122/63 09/16/17 06:00 O2 Sat by Pulse Oximetry (%) 100 09/15/17 21:00 Constitutional: Intubated/Sedated on pressors HEENT: normocephalic/atraumatic CV: S1 S2 RRR Resp: Bilateral breath sounds equal, mechanically vented, no crackles/rales/ rhonchi appreciated Abd: Soft, no organomegaly Ext: atrophic lower extremities, TEDs in place Labs: CBC, BMP 09/16/17 06:30 09/16/17 06:30 Imaging - Results Chest X-ray: Report Reviewed Cat Scan: Report Reviewed Assessment/Plan Assessment: 1. Sepsis, Suspect Aspiration PNA 2. UTI Plan: - Vancomycin 1g BID - Ertapenem 1g Daily - Sputum Cultures - Urine for legionella antigen - F/u Bcx, Urine Cx
--- NOTE | 2017-09-16 08:29 | PN ---
Progress Note, Physician History of Present Illness: Chief Complaint: Respiratory failure and sepsis, likely aspiration PNA, also likely UTI Primary attending: Konrad History of Present Illness Per ICU consult note, Mr. Kc is a 81 YOM with h/o HTN, HLD, dementia, multiple ischemic CVA, bronchitis, GI bleed, renal insufficiency, UTI, anxiety, depression, and gout BIBA from SNF fro abrupt respiratory distress and increased obtundation since the early AM yesterday in the setting of reported applesauce aspiration. A/p report, the family called EMS ([phone]) when he grew unresponsive and BP began to plummet. En route to the ER, the pt became completely unstable (low BP and O2 desat). U/A [facility]. He was found to be febrile. He was pancultured & started on Abx. Of note, the pt has been admitted various times in the past w/ AMS in multiple different states of infection. The pt is admitted to the ICU now w/ hypoxic Resp Fail m/l 2/2 asp pna given applesauce suctioned out of ETT. qSOFA was 3. SUBJECTIVE N/A INTAKE & OUTPUT Intake: ~1.5 liters Outpus: 450cc via [place] LINES/TUBES/DRAINS [place] placed 09/15/17 ET Tube placed 09/15/17 - Current Medication List Current Medications: Active Medications Acetaminophen (Tylenol Suppository -) 650 mg VT Q6H PRN PRN Reason: FEVER Chlorhexidine Gluconate (Peridex -) 15 ml MM BID LORENE Haloperidol (Haldol Injection (Fast Acting) -) 2.5 mg IM Q6H PRN PRN Reason: AGITATION Propofol (Diprivan -) 1,000,000 mcg in 100 mls @ 2.313 mls/hr IVPB TITR LORENE; 5 MCG/KG/MIN PRN Reason: Protocol Last Admin: 09/15/17 22:26 Dose: 10 mcg/kg/min, 4.627 mls/hr Lactated Ringer's (Lactated Ringers Solution) 1,000 ml in 1,000 mls @ 83 mls/ hr IV ASDIR LORENE Last Admin: 09/15/17 22:25 Dose: 83 mls/hr Lorazepam (Ativan Injection -) 0.5 mg IVPUSH TID PRN PRN Reason: ANXIETY Metoprolol Tartrate (Lopressor Injection -) 5 mg IVPB Q4H PRN PRN Reason: HYPERTENSION Mupirocin (Bactroban Ointment (For Decolonization) -) 1 applic NS BID [facility] Stop: 09/21/17 09:59 Pantoprazole Sodium (Protonix Iv) 40 mg IVPUSH DAILY [facility] - Objective Vital Signs: Vital Signs Temperature 99.0 F 09/16/17 06:00 Pulse Rate 64 09/16/17 06:00 Respiratory Rate 14 09/16/17 06:38 Blood Pressure 122/63 09/16/17 06:00 O2 Sat by Pulse Oximetry (%) 100 09/15/17 21:00 Constitutional: Yes: No Distress, Calm, Other (intubaed, lightly sedated, appears tired but does interact somewhat with examiner and family, tracks with eyes, family at bedside is supportive) Eyes: Yes: Conjunctiva Clear, EOM Intact HENT: Yes: Atraumatic, Normocephalic Neck: Yes: WNL, Supple, Trachea Midline Cardiovascular: Yes: Regular Rate and Rhythm Respiratory: Yes: Regular, Intubated, Mechanically Ventilated, Other (slight diminished lung sounds at left apex, mild left-sided crackles, otherwise lungs CTA) Gastrointestinal: Yes: Normal Bowel Sounds, Soft Extremities: Yes: WNL. No: Calf Tenderness, Cool, Delayed Capillary Refill, Erythema Peripheral Pulses: Left Doralis Pedis: 2+, Right Dorsalis Pedis: 2+ Integumentary: Yes: WNL. No: Erythema, Jaundice Neurological: Yes: Other (light sedated but opens eyes to voice easily, tracks with eyes, does not squeeze hands when commanded, does not hold up extremities when commanded) Labs: CBC, BMP 09/16/17 06:30 09/16/17 06:30 INR, PTT INR 1.18 (0.82-1.09) H 09/15/17 17:45 - ....Imaging Chest X-ray: Report Reviewed, Image Reviewed, Other (NG tube tip in appropriate position, no interval change in LM consolidation and left base consolidation.) Assessment/Plan 81 YOM with h/o HTN, HLD, dementia, multiple ischemic CVA, bronchitis, GI bleed , renal insufficiency, UTI, anxiety, depression, and gout BIBA from SNF for AMS and respiratory failure after applesauce aspiration event, intubated, copious secretions. NEURO #Focal weakness LUE. states that since the onset of symptoms yesterday he has not been moving his left arm. He does have residual deficits from multiple prior ischemic CVA per reported history, but never had this severe of deficit in LUE. Head CT without obvious bleed or other acute process. -Full neuro exam when no longer sedated -MRI brain likely when extubated -Neuro consult likely when extubated #AMS. Patient with h/o dementia and resides in SNF but reportedly altered all day yesterday. RESP #Hypoxic respiratory failure, acute. Patient reportedly aspirated apple sauce, was intubated via EMS, extubated and re-intubated in ED, copious applesaucy secretions suctioned. CXR much improve this morning, likely LM aspiration pneumonitis rather than PNA at this time. Patient doing breathing well on CPAP but not following commands, not lifting head off bed. Will not attempt extubation today. -Wean vent today, attempt to extubate tomorrow -Speech/swallow eval when able -DuoNeb treatments prn HEENT Dysphagia. Multiple prior ischemic CVA. Had head CT in ED. -Speech/swallow eval when able RENAL #ANSELMO on CKD, improving. Likely d/t hypoperfusion 2/2 sepsis, also UTI. Patient had mild CK elevation but unlikely this mild elevation would cause renal failure , there is no e/o myoglobinuria. -Trend BUN/Cr -Hydrate ID #Aspiration PNA. Received vancomycin and aztreonam in the ED. -Continue ertapenem and vancomycin -ID following -F/U bass culture #UTI, recurrent. UA with leukocyte esterase and 50 WBC, cath'ed specimen. Received vancomycin and aztreonam in the ED. -Start ertapenem per ID -Continue vancomycin per ID -ID following FEN -Follow CMP, Mg, Phos -Replace lytes prn PPX DVT: SQH, TEDs, SCDs GI: PPI PT: When able DISPO Further ICU care
--- NOTE | 2017-09-16 08:59 | PN ---
Teaching Attending Note Name of Resident: German To ATTENDING PHYSICIAN STATEMENT I saw and evaluated the patient. I reviewed the resident's note and discussed the case with the resident. I agree with the resident's findings and plan as documented. SUBJECTIVE: intubated OBJECTIVE: Vital Signs Period Temp Pulse Resp BP Sys/Peña Pulse Ox Last 24 Hr 99.0 F-102.7 F 62-89 7-22 66-178/44-127 90-100 cor-rrr lungs decreased bs at bases abd soft,nt ext no edema soriano CBC, BMP 09/16/17 06:30 09/16/17 06:30 cxray LLL.LM infiltrate ua with 50 WBCs ASSESSMENT AND PLAN: respiratory failure sepsis pneumonia (aspiration) UTI pen allergy Problem List - Problems (1) Sepsis Code(s): A41.9 - SEPSIS, UNSPECIFIED ORGANISM Qualifiers: (2) Respiratory failure Code(s): J96.90 - RESPIRATORY FAILURE, UNSP, UNSP W HYPOXIA OR HYPERCAPNIA (3) Pneumonia Code(s): J18.9 - PNEUMONIA, UNSPECIFIED ORGANISM Qualifiers: Pneumonia type: aspiration pneumonia Aspiration pneumonia type: unspecified Laterality: unspecified laterality Lung location: unspecified part of lung Qualified Code(s): J69.0 - Pneumonitis due to inhalation of food and vomit (4) UTI (urinary tract infection) Code(s): N39.0 - URINARY TRACT INFECTION, SITE NOT SPECIFIED (5) Penicillin allergy Code(s): Z88.0 - ALLERGY STATUS TO PENICILLIN
[2017-09-16] MEDS: CHLORHEXIDINE GLUCONATE 0.12% 15ML CUP MM SCH ×2 (09:38→22:38)
[2017-09-16] MEDS: ERTAPENEM SODIUM 1 GM in SODIUM CHLORIDE 100 ML IVPB SCH (09:38)
[2017-09-16] MEDS: MUPIROCIN 2% TOPICAL OINTMENT FOR DECOLONIZATION NS SCH ×2 (09:38→22:38)
[2017-09-16] MEDS: VANCOMYCIN 1,000 MG in DEXTROSE 5%-WATER - 250 ML IVPB SCH ×2 (09:38→22:41)
[2017-09-16] MEDS: PANTOPRAZOLE SODIUM 40 MG VIAL IVPUSH SCH (09:39)
[2017-09-16 09:44] LABS: ANISOCYTOSIS 1+; MACROCYTOSIS 3+; PLATELET ESTIMATE NORMAL
--- NOTE | 2017-09-16 09:50 | PN ---
Progress Note (short form) - Note Progress Note: ^^^^^^^^^^^^^^^ medical ICU Current Medications Acetaminophen (Tylenol Suppository -) 650 mg AL Q6H PRN PRN Reason: FEVER Chlorhexidine Gluconate (Peridex -) 15 ml MM BID [facility] Last Admin: 09/16/17 09:38 Dose: 15 ml Haloperidol (Haldol Injection (Fast Acting) -) 2.5 mg IM Q6H PRN PRN Reason: AGITATION Propofol (Diprivan -) 1,000,000 mcg in 100 mls @ 2.313 mls/hr IVPB TITR [facility]; 5 MCG/KG/MIN PRN Reason: Protocol Last Admin: 09/15/17 22:26 Dose: 10 mcg/kg/min, 4.627 mls/hr Lactated Ringer's (Lactated Ringers Solution) 1,000 ml in 1,000 mls @ 83 mls/ hr IV ASDIR [facility] Last Admin: 09/15/17 22:25 Dose: 83 mls/hr Vancomycin HCl 1,000 mg/ (Dextrose) 250 mls @ 250 mls/hr IVPB BID [facility] PRN Reason: Protocol Last Admin: 09/16/17 09:38 Dose: 250 mls/hr Ertapenem 1 gm/ Sodium (Chloride) 100 mls @ 200 mls/hr IVPB DAILY [facility] Last Admin: 09/16/17 09:38 Dose: 200 mls/hr Lorazepam (Ativan Injection -) 0.5 mg IVPUSH TID PRN PRN Reason: ANXIETY Metoprolol Tartrate (Lopressor Injection -) 5 mg IVPB Q4H PRN PRN Reason: HYPERTENSION Mupirocin (Bactroban Ointment (For Decolonization) -) 1 applic NS BID [facility] Stop: 09/21/17 09:59 Last Admin: 09/16/17 09:38 Dose: 1 applic Pantoprazole Sodium (Protonix Iv) 40 mg IVPUSH DAILY [facility] Last Admin: 09/16/17 09:39 Dose: 40 mg Laboratory Results - last 24 hr 09/15/17 09/15/17 09/15/17 17:35 17:45 17:45 WBC 18.1 H D RBC 3.24 L Hgb 12.3 Hct 36.6 MCV 112.9 H MCH 37.9 H MCHC 33.5 RDW 15.1 Plt Count 385 MPV 8.7 D Neutrophils % 87.5 H D Lymphocytes % 6.7 L D Monocytes % 4.9 Eosinophils % 0.5 D Basophils % 0.4 Platelet Estimate Adequate Platelet Comment No clotting detected Macrocytosis 3+ PT with INR 13.30 H INR 1.18 H PTT (Actin FS) 31.8 Anticoagulation Therapy No Result Required. Puncture Site Left radial ABG pH 7.41 ABG pCO2 at Pt Temp 42.6 ABG pO2 at Pt Temp 80.0 ABG HCO3 26.5 H ABG O2 Sat (Measured) 95.2 ABG O2 Content 16.9 ABG Base Excess 2.1 H Markie Test Positive VBG pH POC VBG pCO2 POC VBG pO2 Mixed VBG HCO3 Carboxyhemoglobin 1.4 Methemoglobin 1.0 O2 Delivery Device No Result Required. Oxygen Flow Rate 100% fio2 Vent Mode No Result Required. Vent Rate No Result Required. Mechanical Rate No Result Required. PEEP Pressure Support Vent No Result Required. Sodium Potassium Chloride Carbon Dioxide Anion Gap BUN Creatinine Creat Clearance w eGFR Random Glucose Lactic Acid Calcium Total Bilirubin AST ALT Alkaline Phosphatase Creatine Kinase Creatine Kinase Index CK-MB (CK-2) Troponin I Total Protein Albumin TSH Urine Color Urine Appearance Urine pH Ur Specific [place] Urine Protein Urine Glucose (UA) Urine Ketones Urine Blood Urine Nitrite Urine Bilirubin Urine Urobilinogen Ur Leukocyte Esterase Urine WBC (Auto) Urine RBC (Auto) Ur Epithelial Cells Urine Bacteria Urine Mucus 09/15/17 09/15/17 09/15/17 17:45 17:45 17:45 WBC RBC Hgb Hct MCV MCH MCHC RDW Plt Count MPV Neutrophils % Lymphocytes % Monocytes % Eosinophils % Basophils % Platelet Estimate Platelet Comment Macrocytosis PT with INR INR PTT (Actin FS) Anticoagulation Therapy Puncture Site ABG pH ABG pCO2 at Pt Temp ABG pO2 at Pt Temp ABG HCO3 ABG O2 Sat (Measured) ABG O2 Content ABG Base Excess Markie Test VBG pH POC VBG pCO2 POC VBG pO2 Mixed VBG HCO3 Carboxyhemoglobin Methemoglobin O2 Delivery Device Oxygen Flow Rate Vent Mode Vent Rate Mechanical Rate PEEP Pressure Support Vent Sodium Cancelled Potassium Cancelled Chloride Cancelled Carbon Dioxide Cancelled Anion Gap Cancelled BUN Cancelled Creatinine Cancelled Creat Clearance w eGFR Cancelled Random Glucose Cancelled Lactic Acid 1.8 Calcium Cancelled Total Bilirubin Cancelled AST Cancelled ALT Cancelled Alkaline Phosphatase Cancelled Creatine Kinase Creatine Kinase Index CK-MB (CK-2) Troponin I Cancelled Total Protein Cancelled Albumin Cancelled TSH Urine Color Urine Appearance Urine pH Ur Specific [place] Urine Protein Urine Glucose (UA) Urine Ketones Urine Blood Urine Nitrite Urine Bilirubin Urine Urobilinogen Ur Leukocyte Esterase Urine WBC (Auto) Urine RBC (Auto) Ur Epithelial Cells Urine Bacteria Urine Mucus 09/15/17 09/15/17 09/15/17 17:47 18:47 20:10 WBC RBC Hgb Hct MCV MCH MCHC RDW Plt Count MPV Neutrophils % Lymphocytes % Monocytes % Eosinophils % Basophils % Platelet Estimate Platelet Comment Macrocytosis PT with INR INR PTT (Actin FS) Anticoagulation Therapy Puncture Site ABG pH ABG pCO2 at Pt Temp ABG pO2 at Pt Temp ABG HCO3 ABG O2 Sat (Measured) ABG O2 Content ABG Base Excess Markie Test VBG pH 7.35 POC VBG pCO2 54.6 H POC VBG pO2 23.5 L D Mixed VBG HCO3 29.4 H Carboxyhemoglobin Methemoglobin O2 Delivery Device Oxygen Flow Rate Vent Mode Vent Rate Mechanical Rate PEEP Pressure Support Vent Sodium 144 Potassium 4.1 Chloride 108 H Carbon Dioxide 27 Anion Gap 9 BUN 44 H D Creatinine 1.4 H D Creat Clearance w eGFR 48.89 Random Glucose 124 H D Lactic Acid Calcium 8.6 Total Bilirubin 1.3 H D AST 99 H D ALT 57 D Alkaline Phosphatase 80 D Creatine Kinase 566 H Creatine Kinase Index 0.1 CK-MB (CK-2) 1.037 Troponin I 0.05 D Total Protein 6.8 Albumin 2.5 L TSH Urine Color Yellow Urine Appearance Slcloudy Urine pH 6.0 Ur Specific [place] 1.011 Urine Protein Negative Urine Glucose (UA) Negative Urine Ketones Negative Urine Blood Negative Urine Nitrite Negative Urine Bilirubin Negative Urine Urobilinogen Negative Ur Leukocyte Esterase 2+ H Urine WBC (Auto) 50 Urine RBC (Auto) 2 Ur Epithelial Cells Rare Urine Bacteria Rare Urine Mucus Rare 09/15/17 09/16/17 09/16/17 22:35 06:30 06:30 WBC 19.8 H RBC 2.68 L Hgb 10.3 L D Hct 30.4 L D MCV 113.5 H MCH 38.6 H MCHC 34.0 RDW 15.0 Plt Count 307 D MPV 8.4 Neutrophils % No Result Required. Lymphocytes % No Result Required. Monocytes % Eosinophils % Basophils % Platelet Estimate Platelet Comment Macrocytosis PT with INR INR PTT (Actin FS) Anticoagulation Therapy Puncture Site Left radial ABG pH 7.43 ABG pCO2 at Pt Temp 37.3 ABG pO2 at Pt Temp 190.0 H* D ABG HCO3 24.3 ABG O2 Sat (Measured) 99.9 H* ABG O2 Content 15.2 ABG Base Excess 0.6 Markie Test Positive VBG pH POC VBG pCO2 POC VBG pO2 Mixed VBG HCO3 Carboxyhemoglobin Methemoglobin O2 Delivery Device Mech vent Oxygen Flow Rate 100% Vent Mode A/c Vent Rate 14 Mechanical Rate Yes PEEP 5.0 Pressure Support Vent 450 Sodium 142 Potassium 3.7 Chloride 109 H Carbon Dioxide 24 Anion Gap 9 BUN 38 H Creatinine 0.9 D Creat Clearance w eGFR > 60 Random Glucose 102 Lactic Acid Calcium 7.8 L Total Bilirubin 0.9 D AST 63 H D ALT 47 Alkaline Phosphatase 63 D Creatine Kinase 229 Creatine Kinase Index 0.4 CK-MB (CK-2) < 1.000 Troponin I Total Protein 5.7 L Albumin 2.0 L TSH 0.95 D Urine Color Urine Appearance Urine pH Ur Specific [place] Urine Protein Urine Glucose (UA) Urine Ketones Urine Blood Urine Nitrite Urine Bilirubin Urine Urobilinogen Ur Leukocyte Esterase Urine WBC (Auto) Urine RBC (Auto) Ur Epithelial Cells Urine Bacteria Urine Mucus 09/16/17 06:30 WBC RBC Hgb Hct MCV MCH MCHC RDW Plt Count MPV Neutrophils % Lymphocytes % Monocytes % Eosinophils % Basophils % Platelet Estimate Platelet Comment Macrocytosis PT with INR INR PTT (Actin FS) Anticoagulation Therapy Puncture Site ABG pH ABG pCO2 at Pt Temp ABG pO2 at Pt Temp ABG HCO3 ABG O2 Sat (Measured) ABG O2 Content ABG Base Excess Markie Test VBG pH POC VBG pCO2 POC VBG pO2 Mixed VBG HCO3 Carboxyhemoglobin Methemoglobin O2 Delivery Device Oxygen Flow Rate Vent Mode Vent Rate Mechanical Rate PEEP Pressure Support Vent Sodium Potassium Chloride Carbon Dioxide Anion Gap BUN Creatinine Creat Clearance w eGFR Random Glucose Lactic Acid Calcium Total Bilirubin AST ALT Alkaline Phosphatase Creatine Kinase Cancelled Creatine Kinase Index CK-MB (CK-2) Troponin I Cancelled Total Protein Albumin TSH Urine Color Urine Appearance Urine pH Ur Specific [place] Urine Protein Urine Glucose (UA) Urine Ketones Urine Blood Urine Nitrite Urine Bilirubin Urine Urobilinogen Ur Leukocyte Esterase Urine WBC (Auto) Urine RBC (Auto) Ur Epithelial Cells Urine Bacteria Urine Mucus Vital Signs Temperature 99.0 F 09/16/17 06:00 Pulse Rate 66 09/16/17 08:00 Respiratory Rate 16 09/16/17 09:00 Blood Pressure 131/67 09/16/17 08:00 O2 Sat by Pulse Oximetry (%) 100 09/15/17 21:00 CC: intubated ```````````````````` skin--no acute lesions lungs--BS vented heart--RR abd--soft, BS quiet ext--no edema neuro--rousable; sensorium clouded but calm & non combative ``````````````````````````````````` Impression > Resp failure--2nd asp PNA (as described); on Vent; mgmt as per Pulm > Asp PNA--with underlying Hx of dysphagia; on dual Abs (see ID note) > dehydration--improved with IVF > Rhabdo--minimal CK coming down > dementia--with behavior component; has been calm thus far > Leukocytosis--?sepsis; no hemodynamic instability thus far; on dual Abs; await cultures > Bacturia--await cultures ~~~~~~~~~~~~~ Dr Galloway Problem List - Problems (1) Delirium due to another medical condition Code(s): F05 - DELIRIUM DUE TO KNOWN PHYSIOLOGICAL CONDITION (2) Aspiration pneumonia Code(s): J69.0 - PNEUMONITIS DUE TO INHALATION OF FOOD AND VOMIT (3) Acute respiratory failure with hypoxemia Code(s): J96.01 - ACUTE RESPIRATORY FAILURE WITH HYPOXIA (4) Sepsis Code(s): A41.9 - SEPSIS, UNSPECIFIED ORGANISM Qualifiers: (5) Benign hypertensive renal disease Code(s): I12.9 - HYPERTENSIVE CHRONIC KIDNEY DISEASE W STG 1-4/UNSP CHR KDNY (6) CVA (cerebral vascular accident) Code(s): I63.9 - CEREBRAL INFARCTION, UNSPECIFIED Qualifiers: CVA mechanism: unspecified Qualified Code(s): I63.9 - Cerebral infarction, unspecified (7) Dementia with behavioral disturbance Code(s): F03.91 - UNSPECIFIED DEMENTIA WITH BEHAVIORAL DISTURBANCE Qualifiers: Dementia type: vascular dementia Qualified Code(s): F01.51 - Vascular dementia with behavioral disturbance (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
[2017-09-16] MEDS ORDERED: ERTAPENEM SODIUM 1 GM/50 ML PRE-DOCKED IVPB SCH (10:00)
--- NOTE | 2017-09-16 10:39 | EKG ---
Test Reason : Blood Pressure : / mmHG Vent. Rate : 079 BPM Atrial Rate : 079 BPM P-R Int : 152 ms QRS Dur : 090 ms QT Int : 374 ms P-R-T Axes : 038 -53 092 degrees QTc Int : 428 ms NORMAL SINUS RHYTHM LEFT ANTERIOR FASCICULAR BLOCK ABNORMAL QRS-T ANGLE, CONSIDER PRIMARY T WAVE ABNORMALITY ABNORMAL ECG WHEN COMPARED WITH ECG OF 13-MAY-2017 13:09, NO SIGNIFICANT CHANGE WAS FOUND Confirmed by ADITI BARKER MD ([id number]) on 09/16/2017 10:39:15 AM Referred By: Confirmed By:ADITI BARKER MD
--- NOTE | 2017-09-16 11:58 | PN ---
Teaching Attending Note Name of Resident: Leti Topete ATTENDING PHYSICIAN STATEMENT I saw and evaluated the patient. I reviewed the resident's note and discussed the case with the resident. I agree with the resident's findings and plan as documented. SUBJECTIVE: Patient seen and examined in the ICU. Intubated and sedated. No pressors. No pressors. CXR: some improvement in left infiltrates Intake & Output 09/13/17 09/14/17 09/15/17 09/16/17 23:59 23:59 23:59 23:59 Intake Total 435 612.5 Output Total 300 150 Balance 135 462.5 Weight 149 lb 3 oz 149 lb 3 oz Last Vital Signs Temp Pulse Resp BP Pulse Ox 99.3 F 74 16 147/70 100 09/16/17 10:00 09/16/17 11:29 09/16/17 11:29 09/16/17 11:29 09/15/17 21:00 Active Medications Acetaminophen (Tylenol Suppository -) 650 mg SD Q6H PRN PRN Reason: FEVER Chlorhexidine Gluconate (Peridex -) 15 ml MM BID [facility] Last Admin: 09/16/17 09:38 Dose: 15 ml Haloperidol (Haldol Injection (Fast Acting) -) 2.5 mg IM Q6H PRN PRN Reason: AGITATION Propofol (Diprivan -) 1,000,000 mcg in 100 mls @ 2.313 mls/hr IVPB TITR [facility]; 5 MCG/KG/MIN PRN Reason: Protocol Last Admin: 09/15/17 22:26 Dose: 10 mcg/kg/min, 4.627 mls/hr Lactated Ringer's (Lactated Ringers Solution) 1,000 ml in 1,000 mls @ 83 mls/ hr IV ASDIR [facility] Last Admin: 09/15/17 22:25 Dose: 83 mls/hr Vancomycin HCl 1,000 mg/ (Dextrose) 250 mls @ 250 mls/hr IVPB BID [facility] PRN Reason: Protocol Last Admin: 09/16/17 09:38 Dose: 250 mls/hr Ertapenem 1 gm/ Sodium (Chloride) 100 mls @ 200 mls/hr IVPB DAILY [facility] Last Admin: 09/16/17 09:38 Dose: 200 mls/hr Lorazepam (Ativan Injection -) 0.5 mg IVPUSH TID PRN PRN Reason: ANXIETY Metoprolol Tartrate (Lopressor Injection -) 5 mg IVPB Q4H PRN PRN Reason: HYPERTENSION Mupirocin (Bactroban Ointment (For Decolonization) -) 1 applic NS BID [facility] Stop: 09/21/17 09:59 Last Admin: 09/16/17 09:38 Dose: 1 applic Pantoprazole Sodium (Protonix Iv) 40 mg IVPUSH DAILY [facility] Last Admin: 09/16/17 09:39 Dose: 40 mg Constitutional: Yes: Intubated and sedated Eyes: Yes: WNL, PERRL HENT: Yes: WNL, Atraumatic, Normocephalic Neck: Yes: WNL, Supple, Trachea Midline Cardiovascular: Yes: WNL, Regular Rate and Rhythm Respiratory: Yes: Intubated, Mechanically Ventilated, Basilar rhonchi Left > Right Gastrointestinal: Yes: (+) Bowel Sounds ...Rectal Exam: Yes: Deferred Renal/: Yes: WNL Breast(s): Yes: WNL Musculoskeletal: Yes: WNL Extremities: Yes: WNL Edema: No Peripheral Pulses WNL: Yes Neurological: Yes: Other (Sedated on The Vent) ...Motor Strength: WNL Psychiatric: Yes: WNL Labs: Laboratory Results - last 24 hr 09/15/17 09/15/17 09/15/17 17:35 17:45 17:45 WBC 18.1 H D RBC 3.24 L Hgb 12.3 Hct 36.6 MCV 112.9 H MCH 37.9 H MCHC 33.5 RDW 15.1 Plt Count 385 MPV 8.7 D Neutrophils % 87.5 H D Neutrophils % (Manual) Band Neutrophils % Lymphocytes % 6.7 L D Lymphocytes % (Manual) Monocytes % 4.9 Monocytes % (Manual) Eosinophils % 0.5 D Eosinophils % (Manual) Basophils % 0.4 Basophils % (Manual) Myelocytes % (Man) Promyelocytes % (Man) Blast Cells % (Manual) Nucleated RBC % Metamyelocytes Platelet Estimate Adequate Platelet Comment No clotting detected Anisocytosis Macrocytosis 3+ PT with INR 13.30 H INR 1.18 H PTT (Actin FS) 31.8 Anticoagulation Therapy No Result Required. Puncture Site Left radial ABG pH 7.41 ABG pCO2 at Pt Temp 42.6 ABG pO2 at Pt Temp 80.0 ABG HCO3 26.5 H ABG O2 Sat (Measured) 95.2 ABG O2 Content 16.9 ABG Base Excess 2.1 H Markie Test Positive VBG pH POC VBG pCO2 POC VBG pO2 Mixed VBG HCO3 Carboxyhemoglobin 1.4 Methemoglobin 1.0 O2 Delivery Device No Result Required. Oxygen Flow Rate 100% fio2 Vent Mode No Result Required. Vent Rate No Result Required. Mechanical Rate No Result Required. PEEP Pressure Support Vent No Result Required. Sodium Potassium Chloride Carbon Dioxide Anion Gap BUN Creatinine Creat Clearance w eGFR Random Glucose Lactic Acid Calcium Total Bilirubin AST ALT Alkaline Phosphatase Creatine Kinase Creatine Kinase Index CK-MB (CK-2) Troponin I Total Protein Albumin TSH Urine Color Urine Appearance Urine pH Ur Specific [place] Urine Protein Urine Glucose (UA) Urine Ketones Urine Blood Urine Nitrite Urine Bilirubin Urine Urobilinogen Ur Leukocyte Esterase Urine WBC (Auto) Urine RBC (Auto) Ur Epithelial Cells Urine Bacteria Urine Mucus 09/15/17 09/15/17 09/15/17 17:45 17:45 17:45 WBC RBC Hgb Hct MCV MCH MCHC RDW Plt Count MPV Neutrophils % Neutrophils % (Manual) Band Neutrophils % Lymphocytes % Lymphocytes % (Manual) Monocytes % Monocytes % (Manual) Eosinophils % Eosinophils % (Manual) Basophils % Basophils % (Manual) Myelocytes % (Man) Promyelocytes % (Man) Blast Cells % (Manual) Nucleated RBC % Metamyelocytes Platelet Estimate Platelet Comment Anisocytosis Macrocytosis PT with INR INR PTT (Actin FS) Anticoagulation Therapy Puncture Site ABG pH ABG pCO2 at Pt Temp ABG pO2 at Pt Temp ABG HCO3 ABG O2 Sat (Measured) ABG O2 Content ABG Base Excess Markie Test VBG pH POC VBG pCO2 POC VBG pO2 Mixed VBG HCO3 Carboxyhemoglobin Methemoglobin O2 Delivery Device Oxygen Flow Rate Vent Mode Vent Rate Mechanical Rate PEEP Pressure Support Vent Sodium Cancelled Potassium Cancelled Chloride Cancelled Carbon Dioxide Cancelled Anion Gap Cancelled BUN Cancelled Creatinine Cancelled Creat Clearance w eGFR Cancelled Random Glucose Cancelled Lactic Acid 1.8 Calcium Cancelled Total Bilirubin Cancelled AST Cancelled ALT Cancelled Alkaline Phosphatase Cancelled Creatine Kinase Creatine Kinase Index CK-MB (CK-2) Troponin I Cancelled Total Protein Cancelled Albumin Cancelled TSH Urine Color Urine Appearance Urine pH Ur Specific [place] Urine Protein Urine Glucose (UA) Urine Ketones Urine Blood Urine Nitrite Urine Bilirubin Urine Urobilinogen Ur Leukocyte Esterase Urine WBC (Auto) Urine RBC (Auto) Ur Epithelial Cells Urine Bacteria Urine Mucus 09/15/17 09/15/17 09/15/17 17:47 18:47 20:10 WBC RBC Hgb Hct MCV MCH MCHC RDW Plt Count MPV Neutrophils % Neutrophils % (Manual) Band Neutrophils % Lymphocytes % Lymphocytes % (Manual) Monocytes % Monocytes % (Manual) Eosinophils % Eosinophils % (Manual) Basophils % Basophils % (Manual) Myelocytes % (Man) Promyelocytes % (Man) Blast Cells % (Manual) Nucleated RBC % Metamyelocytes Platelet Estimate Platelet Comment Anisocytosis Macrocytosis PT with INR INR PTT (Actin FS) Anticoagulation Therapy Puncture Site ABG pH ABG pCO2 at Pt Temp ABG pO2 at Pt Temp ABG HCO3 ABG O2 Sat (Measured) ABG O2 Content ABG Base Excess Markie Test VBG pH 7.35 POC VBG pCO2 54.6 H POC VBG pO2 23.5 L D Mixed VBG HCO3 29.4 H Carboxyhemoglobin Methemoglobin O2 Delivery Device Oxygen Flow Rate Vent Mode Vent Rate Mechanical Rate PEEP Pressure Support Vent Sodium 144 Potassium 4.1 Chloride 108 H Carbon Dioxide 27 Anion Gap 9 BUN 44 H D Creatinine 1.4 H D Creat Clearance w eGFR 48.89 Random Glucose 124 H D Lactic Acid Calcium 8.6 Total Bilirubin 1.3 H D AST 99 H D ALT 57 D Alkaline Phosphatase 80 D Creatine Kinase 566 H Creatine Kinase Index 0.1 CK-MB (CK-2) 1.037 Troponin I 0.05 D Total Protein 6.8 Albumin 2.5 L TSH Urine Color Yellow Urine Appearance Slcloudy Urine pH 6.0 Ur Specific [place] 1.011 Urine Protein Negative Urine Glucose (UA) Negative Urine Ketones Negative Urine Blood Negative Urine Nitrite Negative Urine Bilirubin Negative Urine Urobilinogen Negative Ur Leukocyte Esterase 2+ H Urine WBC (Auto) 50 Urine RBC (Auto) 2 Ur Epithelial Cells Rare Urine Bacteria Rare Urine Mucus Rare 09/15/17 09/16/17 09/16/17 22:35 06:30 06:30 WBC 19.8 H RBC 2.68 L Hgb 10.3 L D Hct 30.4 L D MCV 113.5 H MCH 38.6 H MCHC 34.0 RDW 15.0 Plt Count 307 D MPV 8.4 Neutrophils % No Result Required. Neutrophils % (Manual) 87.0 H Band Neutrophils % 1.0 Lymphocytes % No Result Required. Lymphocytes % (Manual) 4.0 L Monocytes % Monocytes % (Manual) 8 Eosinophils % Eosinophils % (Manual) 0.0 Basophils % Basophils % (Manual) 0.0 Myelocytes % (Man) 0 Promyelocytes % (Man) 0 Blast Cells % (Manual) 0 Nucleated RBC % 0 Metamyelocytes 0 Platelet Estimate Normal Platelet Comment Anisocytosis 1+ Macrocytosis 3+ PT with INR INR PTT (Actin FS) Anticoagulation Therapy Puncture Site Left radial ABG pH 7.43 ABG pCO2 at Pt Temp 37.3 ABG pO2 at Pt Temp 190.0 H* D ABG HCO3 24.3 ABG O2 Sat (Measured) 99.9 H* ABG O2 Content 15.2 ABG Base Excess 0.6 Markie Test Positive VBG pH POC VBG pCO2 POC VBG pO2 Mixed VBG HCO3 Carboxyhemoglobin Methemoglobin O2 Delivery Device Mech vent Oxygen Flow Rate 100% Vent Mode A/c Vent Rate 14 Mechanical Rate Yes PEEP 5.0 Pressure Support Vent 450 Sodium 142 Potassium 3.7 Chloride 109 H Carbon Dioxide 24 Anion Gap 9 BUN 38 H Creatinine 0.9 D Creat Clearance w eGFR > 60 Random Glucose 102 Lactic Acid Calcium 7.8 L Total Bilirubin 0.9 D AST 63 H D ALT 47 Alkaline Phosphatase 63 D Creatine Kinase 229 Creatine Kinase Index 0.4 CK-MB (CK-2) < 1.000 Troponin I Total Protein 5.7 L Albumin 2.0 L TSH 0.95 D Urine Color Urine Appearance Urine pH Ur Specific [place] Urine Protein Urine Glucose (UA) Urine Ketones Urine Blood Urine Nitrite Urine Bilirubin Urine Urobilinogen Ur Leukocyte Esterase Urine WBC (Auto) Urine RBC (Auto) Ur Epithelial Cells Urine Bacteria Urine Mucus 09/16/17 06:30 WBC RBC Hgb Hct MCV MCH MCHC RDW Plt Count MPV Neutrophils % Neutrophils % (Manual) Band Neutrophils % Lymphocytes % Lymphocytes % (Manual) Monocytes % Monocytes % (Manual) Eosinophils % Eosinophils % (Manual) Basophils % Basophils % (Manual) Myelocytes % (Man) Promyelocytes % (Man) Blast Cells % (Manual) Nucleated RBC % Metamyelocytes Platelet Estimate Platelet Comment Anisocytosis Macrocytosis PT with INR INR PTT (Actin FS) Anticoagulation Therapy Puncture Site ABG pH ABG pCO2 at Pt Temp ABG pO2 at Pt Temp ABG HCO3 ABG O2 Sat (Measured) ABG O2 Content ABG Base Excess Markie Test VBG pH POC VBG pCO2 POC VBG pO2 Mixed VBG HCO3 Carboxyhemoglobin Methemoglobin O2 Delivery Device Oxygen Flow Rate Vent Mode Vent Rate Mechanical Rate PEEP Pressure Support Vent Sodium Potassium Chloride Carbon Dioxide Anion Gap BUN Creatinine Creat Clearance w eGFR Random Glucose Lactic Acid Calcium Total Bilirubin AST ALT Alkaline Phosphatase Creatine Kinase Cancelled Creatine Kinase Index CK-MB (CK-2) Troponin I Cancelled Total Protein Albumin TSH Urine Color Urine Appearance Urine pH Ur Specific [place] Urine Protein Urine Glucose (UA) Urine Ketones Urine Blood Urine Nitrite Urine Bilirubin Urine Urobilinogen Ur Leukocyte Esterase Urine WBC (Auto) Urine RBC (Auto) Ur Epithelial Cells Urine Bacteria Urine Mucus Problem List - Problems (1) Acute respiratory failure with hypoxemia Code(s): J96.01 - ACUTE RESPIRATORY FAILURE WITH HYPOXIA (2) Anxiety Code(s): F41.9 - ANXIETY DISORDER, UNSPECIFIED (3) Aspiration pneumonia Code(s): J69.0 - PNEUMONITIS DUE TO INHALATION OF FOOD AND VOMIT (4) CVA (cerebral vascular accident) Code(s): I63.9 - CEREBRAL INFARCTION, UNSPECIFIED Qualifiers: CVA mechanism: unspecified Qualified Code(s): I63.9 - Cerebral infarction, unspecified (5) Chronic kidney disease (CKD) Code(s): N18.9 - CHRONIC KIDNEY DISEASE, UNSPECIFIED (6) Dementia with behavioral disturbance Code(s): F03.91 - UNSPECIFIED DEMENTIA WITH BEHAVIORAL DISTURBANCE Qualifiers: Dementia type: vascular dementia Qualified Code(s): F01.51 - Vascular dementia with behavioral disturbance (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 PLAN: Sedation vacation ABX coverage BD TX Follow cultures IVF Replete lytes VTE prophylaxis Wean trials to extubate within next [address] Brooks Critical care time spent in reviewing chart, evaluating patient and formulating plan - 36 minutes.
[2017-09-16] MEDS: PROPOFOL 1,000,000 MCG/100 ML VIAL IVPB SCH (22:37)
[2017-09-16] MEDS: ACETAMINOPHEN 650 MG SUPP.RECT PR PRN (22:39)
[2017-09-16] MEDS ORDERED: PT OWN MED DRAWER 7, Y5N ONE (22:40)
[2017-09-16] MEDS: LACTATED RINGERS SOLUTION 1,000 ML/1,000 ML INFUS.BAG IV SCH (22:41)
[2017-09-17 06:30] LABS: HEMATOCRIT 29.2 % (35.4-49); HEMOGLOBIN 9.9 GM/dL (11.7-16.9); MCH 38.1 pg (25.7-33.7); MEAN CELL VOLUME 111.9 fl (80-96); MEAN PLT VOLUME 8.3 fl (7.5-11.1); PLATELET COUNT 294 K/MM3 (134-434); RBC 2.61 M/mm3 (4.00-5.60); RDW 14.9 % (11.9-15.9); WHITE BLOOD COUNT 12.8 K/mm3 (4.0-10.0)
[2017-09-17 06:39] LABS: INR 1.28 (0.82-1.09); PROTHROMBIN TIME (PATIENT) 14.5 SEC (9.98-11.88)
[2017-09-17 06:41] LABS: ACTIVATED PTT 30.8 SECONDS (26.9-34.4)
[2017-09-17 06:53] LABS: ALBUMIN 1.7 g/dl (3.4-5.0); ANION GAP 13 (8-16); BILIRUBIN,TOTAL 0.7 mg/dL (0.2-1.0); BLOOD UREA NITROGEN 27 mg/dL (7-18); CALCIUM 7.9 mg/dL (8.5-10.1); CHLORIDE 107 mmol/L (98-107); CO2 22 mmol/L (21-32); CREATININE 0.6 mg/dL (0.7-1.3); GLUCOSE,RANDOM 79 mg/dL (74-106); MAGNESIUM 1.9 mg/dL (1.8-2.4); PHOSPHOROUS 2.3 mg/dL (2.5-4.9); POTASSIUM 3.4 mmol/L (3.5-5.1); SGOT/AST 48 U/L (15-37); SGPT/ALT 40 U/L (12-78); SODIUM 142 mmol/L (136-145); URIC ACID 4.4 mg/dL (2.6-7.2)
[2017-09-17 06:55] LABS: ALK PHOS 59 U/L (45-117); TOT PROT 5.3 g/dl (6.4-8.2)
--- NOTE | 2017-09-17 08:24 | PN ---
Progress Note, Physician History of Present Illness: Chief Complaint: Respiratory failure and sepsis, likely aspiration PNA, also likely UTI Primary attending: Konrad History of Present Illness Per ICU consult note, Mr. Kc is a 81 YOM with h/o HTN, HLD, dementia, multiple ischemic CVA, bronchitis, GI bleed, renal insufficiency, UTI, anxiety, depression, and gout BIBA from SNF fro abrupt respiratory distress and increased obtundation since the early AM yesterday in the setting of reported applesauce aspiration. A/p report, the family called EMS ([id number]) when he grew unresponsive and BP began to plummet. En route to the ER, the pt became completely unstable (low BP and O2 desat). U/A [facility]. He was found to be febrile. He was pancultured & started on Abx. Of note, the pt has been admitted various times in the past w/ AMS in multiple different states of infection. The pt is admitted to the ICU now w/ hypoxic Resp Fail m/l 2/2 asp pna given applesauce suctioned out of ETT. qSOFA was 3. 24 HOUR EVENTS Attempted to extubate yesterday and patient was not clinically ready on exam. Attempting again today. Now moving all extremities with decreased sedation, following commands, better than yesterday. WBC improving. SUBJECTIVE Patient weaned off sedation and preparing for extubation but at this time still unable to provide subjective report. INTAKE & OUTPUT Intake: 861cc Output: 600cc Net: 261cc BM: None reported LINES/TUBES/DRAINS Abernathy placed 09/15/17 ET Tube placed 09/15/17 - Current Medication List Current Medications: Active Medications Acetaminophen (Tylenol Suppository -) 650 mg [place] Q6H PRN PRN Reason: FEVER Last Admin: 09/16/17 22:39 Dose: 650 mg Chlorhexidine Gluconate (Peridex -) 15 ml MM BID [facility] Last Admin: 09/16/17 22:38 Dose: 15 ml Haloperidol (Haldol Injection (Fast Acting) -) 2.5 mg IM Q6H PRN PRN Reason: AGITATION Propofol (Diprivan -) 1,000,000 mcg in 100 mls @ 2.313 mls/hr IVPB TITR [facility]; 5 MCG/KG/MIN PRN Reason: Protocol Last Titration: 09/17/17 07:52 Dose: 0 mcg/kg/min, 0 mls/hr Lactated Ringer's (Lactated Ringers Solution) 1,000 ml in 1,000 mls @ 83 mls/ hr IV ASDIR [facility] Last Admin: 09/16/17 22:41 Dose: 83 mls/hr Vancomycin HCl 1,000 mg/ (Dextrose) 250 mls @ 250 mls/hr IVPB BID [facility] PRN Reason: Protocol Last Admin: 09/16/17 22:41 Dose: 250 mls/hr Ertapenem 1 gm/ Sodium (Chloride) 100 mls @ 200 mls/hr IVPB DAILY [facility] Last Admin: 09/16/17 09:38 Dose: 200 mls/hr Lorazepam (Ativan Injection -) 0.5 mg IVPUSH TID PRN PRN Reason: ANXIETY Metoprolol Tartrate (Lopressor Injection -) 5 mg IVPB Q4H PRN PRN Reason: HYPERTENSION Mupirocin (Bactroban Ointment (For Decolonization) -) 1 applic NS BID [facility] Stop: 09/21/17 09:59 Last Admin: 09/16/17 22:38 Dose: 1 applic Pantoprazole Sodium (Protonix Iv) 40 mg IVPUSH DAILY [facility] Last Admin: 09/16/17 09:39 Dose: 40 mg - Objective Vital Signs: Vital Signs Temperature 98.6 F 09/17/17 08:00 Pulse Rate 62 09/17/17 08:00 Respiratory Rate 15 09/17/17 08:00 Blood Pressure 157/78 09/17/17 08:00 O2 Sat by Pulse Oximetry (%) 98 09/17/17 08:00 Constitutional: Yes: Well Nourished, No Distress, Calm, Other (initially sedated and intubated, but coming off sedation patient is able to squeeze both hands equally and wiggle both toes on command, no distress but otherwise non- communicative) Eyes: Yes: WNL, Conjunctiva Clear, EOM Intact HENT: Yes: WNL, Atraumatic, Normocephalic Neck: Yes: WNL, Supple, Trachea Midline. No: Lymphadenopathy, Rigid Cardiovascular: Yes: Regular Rate and Rhythm Respiratory: Yes: WNL, Regular, Intubated, Mechanically Ventilated, Other (mild crackles left upper lung). No: Diminished Gastrointestinal: Yes: WNL, Normal Bowel Sounds, Soft. No: Tenderness Genitourinary: Yes: Abernathy Present Extremities: Yes: WNL. No: Calf Tenderness, Cold, Cyanosis, Delayed Capillary Refill, Erythema Edema: No Peripheral Pulses: Left Doralis Pedis: 2+, Right Dorsalis Pedis: 2+ Integumentary: Yes: WNL. No: Erythema, Jaundice, Rash Neurological: Yes: Alert, Other (moving all extremities, PERRLA, no facial droop ). No: Oriented (unable to converse), Lethargy Labs: CBC, BMP 09/17/17 05:56 09/17/17 05:56 INR, PTT INR 1.28 (0.82-1.09) H 09/17/17 05:56 - ....Imaging Chest X-ray: Report Reviewed, Image Reviewed (no significant change from prior study), Other Assessment/Plan 81 YOM with h/o HTN, HLD, dementia, multiple ischemic CVA, bronchitis, GI bleed , renal insufficiency, UTI, anxiety, depression, and gout BIBA from SNF for AMS and respiratory failure after applesauce aspiration event, intubated, copious secretions. NEURO #Focal weakness LUE, resolved. stated had not been moving LUE on 09/15 and 09/16/17. Yesterday had weakness of LUE>RUE but was difficult exam as he was somehwat sedated, not following commands. This has since resolved today as he is off sedation and preparing for extubation. He does have residual deficits from multiple prior ischemic CVA per reported history. Head CT without obvious bleed or other acute process. -Full neuro exam when no longer sedated -MRI brain likely when extubated -Neuro consult likely when extubated #AMS. Patient with h/o dementia and resides in SNF but reportedly altered all day yesterday. RESP #Hypoxic respiratory failure, acute. Patient reportedly aspirated apple sauce, was intubated via EMS, extubated and re-intubated in ED, copious applesaucy secretions suctioned. CXR much improve this morning, likely LM aspiration pneumonitis versus PNA. Now extubated. -Speech/swallow eval when able tomorrow -DuoNeb treatments prn -ID is following -Continue antibiotics per ID recs HEENT Dysphagia. Multiple prior ischemic CVA. Had head CT in ED. -Speech/swallow eval when able tomorrow -NPO for now RENAL #ANSELMO on CKD, improving. Likely d/t hypoperfusion 2/2 sepsis, also UTI. Patient had mild CK elevation but unlikely this mild elevation would cause renal failure , there is no e/o myoglobinuria. -Trend BUN/Cr -Hydrate ID #Aspiration PNA. Versus pneumonitis. Received vancomycin and aztreonam in the ED. -Continue ertapenem and vancomycin -ID following -F/U bass culture #UTI, recurrent. UA with leukocyte esterase and 50 WBC, cath'ed specimen. Received vancomycin and aztreonam in the ED. -Start ertapenem per ID -Continue vancomycin per ID -ID following FEN -Follow CMP, Mg, Phos -Replace lytes prn PPX DVT: SQH, TEDs, SCDs GI: PPI PT: When able DISPO Tomorrow can transfer if continues to improve
--- NOTE | 2017-09-17 08:33 | PN ---
Progress Note, Physician Chief Complaint: Id Intubated Alert Afebrile - Current Medication List Current Medications: Active Medications Acetaminophen (Tylenol Suppository -) 650 mg [place] Q6H PRN PRN Reason: FEVER Last Admin: 09/16/17 22:39 Dose: 650 mg Chlorhexidine Gluconate (Peridex -) 15 ml MM BID [facility] Last Admin: 09/16/17 22:38 Dose: 15 ml Haloperidol (Haldol Injection (Fast Acting) -) 2.5 mg IM Q6H PRN PRN Reason: AGITATION Propofol (Diprivan -) 1,000,000 mcg in 100 mls @ 2.313 mls/hr IVPB TITR [facility]; 5 MCG/KG/MIN PRN Reason: Protocol Last Titration: 09/17/17 07:52 Dose: 0 mcg/kg/min, 0 mls/hr Lactated Ringer's (Lactated Ringers Solution) 1,000 ml in 1,000 mls @ 83 mls/ hr IV ASDIR [facility] Last Admin: 09/16/17 22:41 Dose: 83 mls/hr Vancomycin HCl 1,000 mg/ (Dextrose) 250 mls @ 250 mls/hr IVPB BID [facility] PRN Reason: Protocol Last Admin: 09/16/17 22:41 Dose: 250 mls/hr Ertapenem 1 gm/ Sodium (Chloride) 100 mls @ 200 mls/hr IVPB DAILY [facility] Last Admin: 09/16/17 09:38 Dose: 200 mls/hr Lorazepam (Ativan Injection -) 0.5 mg IVPUSH TID PRN PRN Reason: ANXIETY Metoprolol Tartrate (Lopressor Injection -) 5 mg IVPB Q4H PRN PRN Reason: HYPERTENSION Mupirocin (Bactroban Ointment (For Decolonization) -) 1 applic NS BID [facility] Stop: 09/21/17 09:59 Last Admin: 09/16/17 22:38 Dose: 1 applic Pantoprazole Sodium (Protonix Iv) 40 mg IVPUSH DAILY [facility] Last Admin: 09/16/17 09:39 Dose: 40 mg - Objective Vital Signs: Vital Signs Temperature 98.6 F 09/17/17 08:00 Pulse Rate 62 09/17/17 08:00 Respiratory Rate 15 09/17/17 08:00 Blood Pressure 157/78 09/17/17 08:00 O2 Sat by Pulse Oximetry (%) 98 09/17/17 08:00 Constitutional: Yes: Other (INtubated) Cardiovascular: Yes: S1, S2 Respiratory: Yes: WNL, Regular, CTA Bilaterally, Diminished Gastrointestinal: Yes: WNL, Normal Bowel Sounds, Soft. No: Tenderness, Tenderness, Rebound Edema: No Labs: CBC, BMP 09/17/17 05:56 09/17/17 05:56 INR, PTT INR 1.28 (0.82-1.09) H 09/17/17 05:56 Assessment/Plan Microbiology 09/15/17 17:45 Blood - Peripheral Venous Blood Culture - Preliminary NO GROWTH OBTAINED AFTER 24 HOURS, INCUBATION TO CONTINUE FOR 4 DAYS. 09/15/17 17:45 Blood - Peripheral Venous Blood Culture - Preliminary NO GROWTH OBTAINED AFTER 24 HOURS, INCUBATION TO CONTINUE FOR 4 DAYS. Laboratory Tests 09/15/17 09/16/17 09/17/17 20:10 06:30 05:56 WBC 19.8 H 12.8 H D Hgb 9.9 L MCV 111.9 H BUN Creatinine Total Bilirubin AST ALT Urine WBC (Auto) 50 09/17/17 05:56 WBC Hgb MCV BUN 27 H D Creatinine 0.6 L D Total Bilirubin 0.7 D AST 48 H D ALT 40 Urine WBC (Auto) Assessment Respiratory failure Sepsis syndrome Pneumonitis UTI Plan Continue current antibiotics pending final c/s ? nature of PCN allergy Mercedez ÁLVAREZ
[2017-09-17] MEDS ORDERED: PT OWN MED DRAWER 7, Y5N ONE (10:10)
[2017-09-17] MEDS: ERTAPENEM SODIUM 1 GM in SODIUM CHLORIDE 100 ML IVPB SCH (10:13)
[2017-09-17] MEDS: PANTOPRAZOLE SODIUM 40 MG VIAL IVPUSH SCH (10:18)
[2017-09-17] MEDS: MUPIROCIN 2% TOPICAL OINTMENT FOR DECOLONIZATION NS SCH ×2 (10:22→21:15)
[2017-09-17] MEDS: CHLORHEXIDINE GLUCONATE 0.12% 15ML CUP MM SCH ×2 (10:22→21:00)
[2017-09-17] MEDS: VANCOMYCIN 1,000 MG in DEXTROSE 5%-WATER - 250 ML IVPB SCH ×2 (10:56→21:15)
[2017-09-17] MEDS ORDERED: ALBUTEROL SO4 0.042% IH SOL 1.25 MG/3 ML VIAL.NEB NEB PRN ×2 (14:08→21:21)
--- NOTE | 2017-09-17 14:08 | PN ---
Progress Note (short form) - Note Progress Note: ^^^^^^^^^^^^^^^ medical (icu) note Laboratory Results - last 24 hr 09/17/17 09/17/17 09/17/17 05:56 05:56 05:56 WBC 12.8 H D RBC 2.61 L Hgb 9.9 L Hct 29.2 L MCV 111.9 H MCH 38.1 H MCHC 34.0 RDW 14.9 Plt Count 294 MPV 8.3 PT with INR 14.50 H INR 1.28 H PTT (Actin FS) 30.8 Sodium 142 Potassium 3.4 L Chloride 107 Carbon Dioxide 22 Anion Gap 13 BUN 27 H D Creatinine 0.6 L D Creat Clearance w eGFR > 60 Random Glucose 79 D Uric Acid 4.4 D Calcium 7.9 L Phosphorus 2.3 L Magnesium 1.9 Total Bilirubin 0.7 D AST 48 H D ALT 40 Alkaline Phosphatase 59 Total Protein 5.3 L Albumin 1.7 L Current Medications Acetaminophen (Tylenol Suppository -) 650 mg [place] Q6H PRN PRN Reason: FEVER Last Admin: 09/16/17 22:39 Dose: 650 mg Chlorhexidine Gluconate (Peridex -) 15 ml MM BID [facility] Last Admin: 09/17/17 10:22 Dose: 15 ml Haloperidol (Haldol Injection (Fast Acting) -) 2.5 mg IM Q6H PRN PRN Reason: AGITATION Propofol (Diprivan -) 1,000,000 mcg in 100 mls @ 2.313 mls/hr IVPB TITR [facility]; 5 MCG/KG/MIN PRN Reason: Protocol Last Titration: 09/17/17 07:52 Dose: 0 mcg/kg/min, 0 mls/hr Lactated Ringer's (Lactated Ringers Solution) 1,000 ml in 1,000 mls @ 83 mls/ hr IV ASDIR [facility] Last Admin: 09/16/17 22:41 Dose: 83 mls/hr Vancomycin HCl 1,000 mg/ (Dextrose) 250 mls @ 250 mls/hr IVPB BID [facility] PRN Reason: Protocol Last Admin: 09/17/17 10:56 Dose: 250 mls/hr Ertapenem 1 gm/ Sodium (Chloride) 100 mls @ 200 mls/hr IVPB DAILY [facility] Last Admin: 09/17/17 10:13 Dose: 200 mls/hr Lorazepam (Ativan Injection -) 0.5 mg IVPUSH TID PRN PRN Reason: ANXIETY Metoprolol Tartrate (Lopressor Injection -) 5 mg IVPB Q4H PRN PRN Reason: HYPERTENSION Mupirocin (Bactroban Ointment (For Decolonization) -) 1 applic NS BID [facility] Stop: 09/21/17 09:59 Last Admin: 09/17/17 10:22 Dose: 1 applic Pantoprazole Sodium (Protonix Iv) 40 mg IVPUSH DAILY [facility] Last Admin: 09/17/17 10:18 Dose: 40 mg Vital Signs Temperature 100.2 F H 09/17/17 13:31 Pulse Rate 66 09/17/17 13:31 Respiratory Rate 14 09/17/17 13:31 Blood Pressure 135/69 09/17/17 13:31 O2 Sat by Pulse Oximetry (%) 98 09/17/17 08:00 CC: awake; extubated ```````````````````` skin--no acute lesions lungs--BS vented heart--RR abd--soft, BS quiet ext--no edema neuro--rousable; sensorium clouded but calm & non combative ``````````````````````````````````` Impression > Resp failure--2nd asp PNA (as described); now extubated Vent; mgmt as per Pulm > Asp PNA--with underlying Hx of dysphagia; on dual Abs (see ID note); keep NPO > dehydration--improved with IVF > dementia--with behavior component; has been calm thus far > Leukocytosis--?sepsis; no hemodynamic instability thus far; wBC improved, on dual Abs > Bacturia--await cultures ~~~~~~~~~~~~~ Dr Galloway Problem List - Problems (1) Delirium due to another medical condition Code(s): F05 - DELIRIUM DUE TO KNOWN PHYSIOLOGICAL CONDITION (2) Aspiration pneumonia Code(s): J69.0 - PNEUMONITIS DUE TO INHALATION OF FOOD AND VOMIT (3) Acute respiratory failure with hypoxemia Code(s): J96.01 - ACUTE RESPIRATORY FAILURE WITH HYPOXIA (4) Sepsis Code(s): A41.9 - SEPSIS, UNSPECIFIED ORGANISM Qualifiers: (5) Benign hypertensive renal disease Code(s): I12.9 - HYPERTENSIVE CHRONIC KIDNEY DISEASE W STG 1-4/UNSP CHR KDNY (6) CVA (cerebral vascular accident) Code(s): I63.9 - CEREBRAL INFARCTION, UNSPECIFIED Qualifiers: Qualified Code(s): I63.9 - Cerebral infarction, unspecified (7) Dementia with behavioral disturbance Code(s): F03.91 - UNSPECIFIED DEMENTIA WITH BEHAVIORAL DISTURBANCE Qualifiers: Qualified Code(s): F01.51 - Vascular dementia with behavioral disturbance (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
--- NOTE | 2017-09-17 15:04 | PN ---
Teaching Attending Note Name of Resident: Leti Topete ATTENDING PHYSICIAN STATEMENT I saw and evaluated the patient. I reviewed the resident's note and discussed the case with the resident. I agree with the resident's findings and plan as documented. SUBJECTIVE: Patient seen and examined in the ICU. Intubated. Awake and interactive. AC Mode of vent, 45% FiO2. No pressors. CXR: No gross change in left infiltrates Intake & Output 09/14/17 09/15/17 09/16/17 09/17/17 23:59 23:59 23:59 23:59 Intake Total 435 861.5 1294 Output Total 300 600 100 Balance 135 261.5 1194 Weight 149 lb 3 oz 149 lb 3 oz 149 lb 4.047 oz Last Vital Signs Temp Pulse Resp BP Pulse Ox 100.2 F H 66 14 135/69 98 09/17/17 13:31 09/17/17 13:31 09/17/17 13:31 09/17/17 13:31 09/17/17 08:00 Active Medications Acetaminophen (Tylenol Suppository -) 650 mg [place] Q6H PRN PRN Reason: FEVER Last Admin: 09/16/17 22:39 Dose: 650 mg Albuterol Sulfate (Ventolin 0.042trength) -) 1 amp NEB Q4H PRN PRN Reason: SHORT OF BREATH/WHEEZING Chlorhexidine Gluconate (Peridex -) 15 ml MM BID [facility] Last Admin: 09/17/17 10:22 Dose: 15 ml Haloperidol (Haldol Injection (Fast Acting) -) 2.5 mg IM Q6H PRN PRN Reason: AGITATION Propofol (Diprivan -) 1,000,000 mcg in 100 mls @ 2.313 mls/hr IVPB TITR [facility]; 5 MCG/KG/MIN PRN Reason: Protocol Last Titration: 09/17/17 07:52 Dose: 0 mcg/kg/min, 0 mls/hr Lactated Ringer's (Lactated Ringers Solution) 1,000 ml in 1,000 mls @ 83 mls/ hr IV ASDIR [facility] Last Admin: 09/16/17 22:41 Dose: 83 mls/hr Vancomycin HCl 1,000 mg/ (Dextrose) 250 mls @ 250 mls/hr IVPB BID [facility] PRN Reason: Protocol Last Admin: 09/17/17 10:56 Dose: 250 mls/hr Ertapenem 1 gm/ Sodium (Chloride) 100 mls @ 200 mls/hr IVPB DAILY [facility] Last Admin: 09/17/17 10:13 Dose: 200 mls/hr Lorazepam (Ativan Injection -) 0.5 mg IVPUSH TID PRN PRN Reason: ANXIETY Metoprolol Tartrate (Lopressor Injection -) 5 mg IVPB Q4H PRN PRN Reason: HYPERTENSION Mupirocin (Bactroban Ointment (For Decolonization) -) 1 applic NS BID [facility] Stop: 09/21/17 09:59 Last Admin: 09/17/17 10:22 Dose: 1 applic Pantoprazole Sodium (Protonix Iv) 40 mg IVPUSH DAILY [facility] Last Admin: 09/17/17 10:18 Dose: 40 mg Constitutional: Yes: Intubated and awake Eyes: Yes: WNL, PERRL HENT: Yes: WNL, Atraumatic, Normocephalic Neck: Yes: WNL, Supple, Trachea Midline Cardiovascular: Yes: WNL, Regular Rate and Rhythm Respiratory: Yes: Intubated, Mechanically Ventilated, Basilar rhonchi Left > Right Gastrointestinal: Yes: (+) Bowel Sounds ...Rectal Exam: Yes: Deferred Renal/: Yes: WNL Breast(s): Yes: WNL Musculoskeletal: Yes: WNL Extremities: Yes: WNL Edema: No Peripheral Pulses WNL: Yes Neurological: Yes: LE weakness ...Motor Strength: WNL Psychiatric: Yes: WNL Labs: Laboratory Results - last 24 hr 09/17/17 09/17/17 09/17/17 05:56 05:56 05:56 WBC 12.8 H D RBC 2.61 L Hgb 9.9 L Hct 29.2 L MCV 111.9 H MCH 38.1 H MCHC 34.0 RDW 14.9 Plt Count 294 MPV 8.3 PT with INR 14.50 H INR 1.28 H PTT (Actin FS) 30.8 Sodium 142 Potassium 3.4 L Chloride 107 Carbon Dioxide 22 Anion Gap 13 BUN 27 H D Creatinine 0.6 L D Creat Clearance w eGFR > 60 Random Glucose 79 D Uric Acid 4.4 D Calcium 7.9 L Phosphorus 2.3 L Magnesium 1.9 Total Bilirubin 0.7 D AST 48 H D ALT 40 Alkaline Phosphatase 59 Total Protein 5.3 L Albumin 1.7 L Problem List - Problems (1) Acute respiratory failure with hypoxemia Code(s): J96.01 - ACUTE RESPIRATORY FAILURE WITH HYPOXIA (2) Anxiety Code(s): F41.9 - ANXIETY DISORDER, UNSPECIFIED (3) Aspiration pneumonia Code(s): J69.0 - PNEUMONITIS DUE TO INHALATION OF FOOD AND VOMIT (4) CVA (cerebral vascular accident) Code(s): I63.9 - CEREBRAL INFARCTION, UNSPECIFIED Qualifiers: CVA mechanism: unspecified Qualified Code(s): I63.9 - Cerebral infarction, unspecified (5) Chronic kidney disease (CKD) Code(s): N18.9 - CHRONIC KIDNEY DISEASE, UNSPECIFIED (6) Dementia with behavioral disturbance Code(s): F03.91 - UNSPECIFIED DEMENTIA WITH BEHAVIORAL DISTURBANCE Qualifiers: Dementia type: vascular dementia Qualified Code(s): F01.51 - Vascular dementia with behavioral disturbance (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 PLAN: ABX coverage BD TX Follow cultures IVF Replete lytes VTE prophylaxis Wean trials with trial of extubation Dr Brooks Critical care time spent in reviewing chart, evaluating patient and formulating plan - 36 minutes.
[2017-09-17] MEDS: ACETAMINOPHEN 650 MG SUPP.RECT PR PRN (16:56)
[2017-09-17] MEDS: LACTATED RINGERS SOLUTION 1,000 ML/1,000 ML INFUS.BAG IV SCH (21:16)
[2017-09-17] MEDS: ACETYLCYSTEINE 20% 200MG/ML 4 ML VIAL *FOR ORAL / INH USE ONLY NEB SCH (22:22)
[2017-09-17] MEDS: ALBUTEROL SO4 0.042% IH SOL 1.25 MG/3 ML VIAL.NEB NEB SCH (22:23)
[2017-09-18 06:29] LABS: BASO % 0.4 % (0-2.0); EOS % 3.5 % (0-4.5); HEMATOCRIT 30.2 % (35.4-49); HEMOGLOBIN 10.4 GM/dL (11.7-16.9); LYMPH % 9.6 % (8-40); MCH 38.3 pg (25.7-33.7); MCHC 34.3 g/dl (32.0-35.9); MEAN CELL VOLUME 111.7 fl (80-96); MEAN PLT VOLUME 8.2 fl (7.5-11.1); NEUT % 75.5 % (42.8-82.8); PLATELET COUNT 352 K/MM3 (134-434); RDW 14.5 % (11.9-15.9); WHITE BLOOD COUNT 12.8 K/mm3 (4.0-10.0)
[2017-09-18 06:46] LABS: INR 1.2 (0.82-1.09); PROTHROMBIN TIME (PATIENT) 13.6 SEC (9.98-11.88)
[2017-09-18 06:48] LABS: ACTIVATED PTT 27.5 SECONDS (26.9-34.4)
[2017-09-18 07:01] LABS: ALBUMIN 1.8 g/dl (3.4-5.0); ANION GAP 6 (8-16); BLOOD UREA NITROGEN 20 mg/dL (7-18); CALCIUM 7.9 mg/dL (8.5-10.1); CHLORIDE 105 mmol/L (98-107); CO2 29 mmol/L (21-32); GLUCOSE,RANDOM 119 mg/dL (74-106); MAGNESIUM 1.8 mg/dL (1.8-2.4); POTASSIUM 3.4 mmol/L (3.5-5.1); SODIUM 140 mmol/L (136-145)
[2017-09-18 07:06] LABS: ALK PHOS 67 U/L (45-117); BILIRUBIN,TOTAL 0.5 mg/dL (0.2-1.0); CREATININE 0.6 mg/dL (0.7-1.3); PHOSPHOROUS 2.2 mg/dL (2.5-4.9); SGOT/AST 65 U/L (15-37); SGPT/ALT 48 U/L (12-78); TOT PROT 5.4 g/dl (6.4-8.2)
--- NOTE | 2017-09-18 07:15 | PN ---
Progress Note, Physician Chief Complaint: ID Vancomycin and Ertepenen - Current Medication List Current Medications: Active Medications Acetaminophen (Tylenol Suppository -) 650 mg [place] Q6H PRN PRN Reason: FEVER Last Admin: 09/17/17 16:56 Dose: 650 mg Acetylcysteine (Mucomyst 20 Oral / Inh Use Only*) 300 mg NEB RTID [facility] Last Admin: 09/17/17 22:22 Dose: 300 mg Albuterol Sulfate (Ventolin 0.042trength) -) 1 amp NEB RTID [facility] Last Admin: 09/17/17 22:23 Dose: 1 amp Chlorhexidine Gluconate (Peridex -) 15 ml MM BID [facility] Last Admin: 09/17/17 21:00 Dose: Not Given Haloperidol (Haldol Injection (Fast Acting) -) 2.5 mg IM Q6H PRN PRN Reason: AGITATION Propofol (Diprivan -) 1,000,000 mcg in 100 mls @ 2.313 mls/hr IVPB TITR [facility]; 5 MCG/KG/MIN PRN Reason: Protocol Last Titration: 09/17/17 07:52 Dose: 0 mcg/kg/min, 0 mls/hr Lactated Ringer's (Lactated Ringers Solution) 1,000 ml in 1,000 mls @ 83 mls/ hr IV ASDIR [facility] Last Admin: 09/17/17 21:16 Dose: 83 mls/hr Vancomycin HCl 1,000 mg/ (Dextrose) 250 mls @ 250 mls/hr IVPB BID [facility] PRN Reason: Protocol Last Admin: 09/17/17 21:15 Dose: 250 mls/hr Ertapenem 1 gm/ Sodium (Chloride) 100 mls @ 200 mls/hr IVPB DAILY [facility] Last Admin: 09/17/17 10:13 Dose: 200 mls/hr Lorazepam (Ativan Injection -) 0.5 mg IVPUSH TID PRN PRN Reason: ANXIETY Metoprolol Tartrate (Lopressor Injection -) 5 mg IVPB Q4H PRN PRN Reason: HYPERTENSION Mupirocin (Bactroban Ointment (For Decolonization) -) 1 applic NS BID [facility] Stop: 09/21/17 09:59 Last Admin: 09/17/17 21:15 Dose: 1 applic Pantoprazole Sodium (Protonix Iv) 40 mg IVPUSH DAILY [facility] Last Admin: 09/17/17 10:18 Dose: 40 mg - Objective Vital Signs: Vital Signs Temperature 100.8 F H 09/18/17 06:00 Pulse Rate 66 09/18/17 06:00 Respiratory Rate 24 09/18/17 06:00 Blood Pressure 140/73 09/18/17 06:00 O2 Sat by Pulse Oximetry (%) 93 L 09/17/17 20:45 Constitutional: Yes: No Distress, Other (Extubated) Cardiovascular: Yes: S1, S2 Respiratory: Yes: WNL, Regular, CTA Bilaterally, Rhonchi Gastrointestinal: Yes: WNL, Normal Bowel Sounds, Soft. No: Tenderness, Tenderness, Rebound Edema: No Labs: CBC, BMP 09/18/17 06:05 09/18/17 06:05 INR, PTT INR 1.20 (0.82-1.09) H 09/18/17 06:05 Assessment/Plan Microbiology 09/16/17 23:00 Sputum - Endotrachea Suction/Ventilator Gram Stain - Final 09/16/17 19:00 Urine For Antigen Detection Legionella Antigen - Final 09/16/17 19:00 Urine For Antigen Detection Streptococcus pneumoniae Antigen (M - Final 09/15/17 20:10 Urine - Urine Abernathy Urine Culture - Final NO GROWTH OBTAINED 09/15/17 17:45 Blood - Peripheral Venous Blood Culture - Preliminary NO GROWTH OBTAINED AFTER 48 HOURS, INCUBATION TO CONTINUE FOR 3 DAYS. 09/15/17 17:45 Blood - Peripheral Venous Blood Culture - Preliminary NO GROWTH OBTAINED AFTER 48 HOURS, INCUBATION TO CONTINUE FOR 3 DAYS. Laboratory Tests 09/18/17 09/18/17 06:05 06:05 WBC 12.8 H Hgb 10.4 L Hct 30.2 L Plt Count 352 BUN 20 H D Creatinine 0.6 L Creat Clearance w eGFR > 60 Assessment Pneumonia unspecified ? aspiration Respiratory failure now extubated Urinary tract infection( culture neg) PCN allergy Plan Antibiotics can be adjusted ? stop Vanco once sputum back Lets see Jatinder ÁLVAREZ
[2017-09-18] MEDS: ACETYLCYSTEINE 20% 200MG/ML 4 ML VIAL *FOR ORAL / INH USE ONLY NEB SCH ×3 (07:30→21:22)
[2017-09-18] MEDS: ALBUTEROL SO4 0.042% IH SOL 1.25 MG/3 ML VIAL.NEB NEB SCH ×3 (07:30→21:22)
[2017-09-18] MEDS ORDERED: ALBUTEROL SO4 0.083% IH SOL 2.5 MG/3 ML VIAL.NEB. NEB ONE ×2 (07:39→21:08)
[2017-09-18] MEDS ORDERED: NAPH,MB-DB/K PH,MBDB POWDER PACKET PO ONE ×2 (08:45→09:15)
--- NOTE | 2017-09-18 08:54 | PN ---
Progress Note, Physician History of Present Illness: 24 HOUR EVENTS Extubated yesterday, desaturated a bit but improved after suction copious secretions and subsequently did well, +fevers overnight. SUBJECTIVE Extubated and makes eye contact/tracks examiner and family around the room, follows commands, but otherwise nonverbal and does not interact or provide subjective report. INTAKE & OUTPUT Intake: 1634cc Output: 450cc Net: BM: None reported LINES/TUBES/DRAINS Abernathy placed 09/15/17 ET Tube placed 09/15/17 - Current Medication List Current Medications: Active Medications Acetaminophen (Tylenol Suppository -) 650 mg AL Q6H PRN PRN Reason: FEVER Last Admin: 09/17/17 16:56 Dose: 650 mg Acetylcysteine (Mucomyst 20 Oral / Inh Use Only*) 300 mg NEB RTID [facility] Last Admin: 09/18/17 07:30 Dose: 300 mg Albuterol Sulfate (Ventolin 0.042trength) -) 1 amp NEB RTID [facility] Last Admin: 09/18/17 07:30 Dose: 1 amp Chlorhexidine Gluconate (Peridex -) 15 ml MM BID [facility] Last Admin: 09/17/17 21:00 Dose: Not Given Haloperidol (Haldol Injection (Fast Acting) -) 2.5 mg IM Q6H PRN PRN Reason: AGITATION Propofol (Diprivan -) 1,000,000 mcg in 100 mls @ 2.313 mls/hr IVPB TITR [facility]; 5 MCG/KG/MIN PRN Reason: Protocol Last Titration: 09/17/17 07:52 Dose: 0 mcg/kg/min, 0 mls/hr Lactated Ringer's (Lactated Ringers Solution) 1,000 ml in 1,000 mls @ 83 mls/ hr IV ASDIR [facility] Last Admin: 09/17/17 21:16 Dose: 83 mls/hr Vancomycin HCl 1,000 mg/ (Dextrose) 250 mls @ 250 mls/hr IVPB BID [facility] PRN Reason: Protocol Last Admin: 09/17/17 21:15 Dose: 250 mls/hr Ertapenem 1 gm/ Sodium (Chloride) 100 mls @ 200 mls/hr IVPB DAILY [facility] Last Admin: 09/17/17 10:13 Dose: 200 mls/hr Lorazepam (Ativan Injection -) 0.5 mg IVPUSH TID PRN PRN Reason: ANXIETY Metoprolol Tartrate (Lopressor Injection -) 5 mg IVPB Q4H PRN PRN Reason: HYPERTENSION Mupirocin (Bactroban Ointment (For Decolonization) -) 1 applic NS BID [facility] Stop: 09/21/17 09:59 Last Admin: 09/17/17 21:15 Dose: 1 applic Pantoprazole Sodium (Protonix Iv) 40 mg IVPUSH DAILY [facility] Last Admin: 09/17/17 10:18 Dose: 40 mg Potassium Phos/Sodium Phos (Phos-Nak Packet -) 2 packet PO ONCE ONE Stop: 09/18/17 08:46 - Objective Vital Signs: Vital Signs Temperature 100.9 F H 09/18/17 08:00 Pulse Rate 64 09/18/17 08:00 Respiratory Rate 24 09/18/17 08:12 Blood Pressure 128/62 09/18/17 08:00 O2 Sat by Pulse Oximetry (%) 93 L 09/18/17 08:12 Constitutional: Yes: No Distress, Calm Eyes: Yes: WNL, Conjunctiva Clear, EOM Intact HENT: Yes: WNL, Atraumatic, Normocephalic Neck: Yes: WNL, Supple, Trachea Midline Cardiovascular: Yes: WNL, Regular Rate and Rhythm Respiratory: Yes: WNL, Regular, On Venti-Mask, Other (coarse lung sounds throughout). No: Cough, Stridor Gastrointestinal: Yes: WNL, Normal Bowel Sounds, Soft Genitourinary: Yes: Abernathy Present Extremities: No: Calf Tenderness, Cool, Erythema Peripheral Pulses: Left Doralis Pedis: 2+, Right Dorsalis Pedis: 2+ Integumentary: Yes: WNL. No: Erythema, Jaundice, Rash Neurological: Yes: Alert, Other (nonverbal, follows commands to squeeze hands and does track with eyes but otherwise does not interact with examiner). No: Oriented, Facial Droop, Tremors Psychiatric: No: Agitated Labs: CBC, BMP 09/18/17 06:05 09/18/17 06:05 INR, PTT INR 1.20 (0.82-1.09) H 09/18/17 06:05 - ....Imaging Chest X-ray: Report Reviewed, Image Reviewed, Other (Left lower lobe increased opacity which could be pleural effusion with compressive atelectasis versus infective process, right basilar atelectasis)
[2017-09-18] MEDS ORDERED: PT OWN MED DRAWER 7, Y5N ONE ×3 (09:03→14:12)
[2017-09-18] MEDS: PANTOPRAZOLE SODIUM 40 MG VIAL IVPUSH SCH (09:17)
[2017-09-18] MEDS: VANCOMYCIN 1,000 MG in DEXTROSE 5%-WATER - 250 ML IVPB SCH ×2 (09:17→22:30)
[2017-09-18] MEDS: MUPIROCIN 2% TOPICAL OINTMENT FOR DECOLONIZATION NS SCH ×2 (09:22→22:30)
[2017-09-18] MEDS: ERTAPENEM SODIUM 1 GM in SODIUM CHLORIDE 100 ML IVPB SCH (09:22)
[2017-09-18] MEDS: CHLORHEXIDINE GLUCONATE 0.12% 15ML CUP MM SCH (09:23)
--- NOTE | 2017-09-18 10:47 | CONSULT ---
Admitting History and Physical - Primary Care Physician PCP: Manuel Galloway - Admission History of Present Illness: 81 YO M BIBA from home for AMS and respiratory failure after applesauce aspiration event, intubated, copious secretions. PMH- Dysphagia,HTN, HLD, dementia, multiple ischemic CVA, bronchitis, GI bleed, renal insufficiency, UTI, anxiety, depression, gout Last mbs 05/2017 with silent aspiration on nectar thick liquid. Extubated yesterday. Copious secretions. Pt's reported pt was verbal before admission, and was on a puree and very soft food diet. He was on honey thick liquid that she gave him, as as she "couldnt trust him" to drink alone due to impulsivity. She gave him liquids from a cup, but if he coughed, she would then give them on a spoon. 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) Rheumatology: Yes: Gout - Smoking History Smoking history: Unknown if ever smoked Have you smoked in the past 12 months: No Aproximately how many cigarettes per day: 0 - Alcohol/Substance Use Hx Alcohol Use: No History of Substance Use: reports: None - Social 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 History - Admission Reason For Visit: SEPSIS - Diagnostics X-ray: Report Reviewed CT Scan: Report Reviewed - General Mental Status: Awake and Alert Attention: Distractible - Hearing Hearing: Normal Hearing Aide: No With Patient: No Speech Evaluation - Communication Primary Language: LAO - Speech Characteristics Voice Loudness: Mildly Soft/Quiet Voice Pitch: Yes: Mildly Low Voice Phonatory-based Quality: Yes: Dysphonia Speech Pattern: Impaired Speech Clarity: < 25% - Language/Verbal Expression Functional Communication Status: Yes: Severely Impaired - Swallow Evaluation/Bedside Assessment Current Nutritional Intake: NPO, NG Tube Oral Secretions: Yes: Copious Secretions Facial Symmetry at Rest: Facial Droop Right A-P Transit: Impaired Recommendations - Speech Evaluation, Impression/Plan Impression: Good eye contact. Poor speech initiation. Limited unintelligible words produced. Does not respond to most simple questions eg name?. Copious secretions. H/o dysphagia with SILENT aspiration on nectar thick liquid on last mbs. Too weak for po trials. Likely aspirating on secretions presently. - Disposition Discharge to: To be Determined - Dysphagia Impressions/Plan Swallowing Skills: Impaired Dysphagia Impressions: Moderate Impairment, Severe Impairment, Ongoing Evaluation, Suspect Aspiration *Silent aspiration: cannot be R/O at bedside Recommendations: Modified Barium Swallow (when pt becomes stronger and less congested.), Other (Mouth care.Continue percussion/vibration Chest PT, suction PRN.) - Recommendations Diet Consistency: NPO Liquids: NPO
--- NOTE | 2017-09-18 11:59 | PN ---
Teaching Attending Note Name of Resident: Leti Topete ATTENDING PHYSICIAN STATEMENT I saw and evaluated the patient. I reviewed the resident's note and discussed the case with the resident. I agree with the resident's findings and plan as documented. SUBJECTIVE: Patient seen and examined in the ICU. Remains extubated on VM O2. Awake and interactive. Low grade temp. Congested cough noted. No pressors. CXR: Poor inspiratory effort, suggestion of basilar atelectass +/- effusion Left > Right Intake & Output 09/15/17 09/16/17 09/17/17 09/18/17 23:59 23:59 23:59 23:59 Intake Total 435 861.5 1634 1286 Output Total 300 600 450 275 Balance 135 261.5 1184 1011 Weight 149 lb 3 oz 149 lb 3 oz 149 lb 4.047 oz 150 lb 14.4 oz Last Vital Signs Temp Pulse Resp BP Pulse Ox 100.9 F H 64 24 128/62 93 L 09/18/17 08:00 09/18/17 08:00 09/18/17 08:12 09/18/17 08:00 09/18/17 08:12 Active Medications Acetaminophen (Tylenol Suppository -) 650 mg DE Q6H PRN PRN Reason: FEVER Last Admin: 09/17/17 16:56 Dose: 650 mg Acetylcysteine (Mucomyst 20 Oral / Inh Use Only*) 300 mg NEB RTID [facility] Last Admin: 09/18/17 07:30 Dose: 300 mg Albuterol Sulfate (Ventolin 0.042trength) -) 1 amp NEB RTID [facility] Last Admin: 09/18/17 07:30 Dose: 1 amp Chlorhexidine Gluconate (Peridex -) 15 ml MM BID [facility] Last Admin: 09/18/17 09:23 Dose: Not Given Haloperidol (Haldol Injection (Fast Acting) -) 2.5 mg IM Q6H PRN PRN Reason: AGITATION Propofol (Diprivan -) 1,000,000 mcg in 100 mls @ 2.313 mls/hr IVPB TITR [facility]; 5 MCG/KG/MIN PRN Reason: Protocol Last Titration: 09/17/17 07:52 Dose: 0 mcg/kg/min, 0 mls/hr Lactated Ringer's (Lactated Ringers Solution) 1,000 ml in 1,000 mls @ 83 mls/ hr IV ASDIR [facility] Last Admin: 09/17/17 21:16 Dose: 83 mls/hr Vancomycin HCl 1,000 mg/ (Dextrose) 250 mls @ 250 mls/hr IVPB BID [facility] PRN Reason: Protocol Last Admin: 09/18/17 09:17 Dose: 250 mls/hr Ertapenem 1 gm/ Sodium (Chloride) 100 mls @ 200 mls/hr IVPB DAILY [facility] Last Admin: 09/18/17 09:22 Dose: 200 mls/hr Lorazepam (Ativan Injection -) 0.5 mg IVPUSH TID PRN PRN Reason: ANXIETY Metoprolol Tartrate (Lopressor Injection -) 5 mg IVPB Q4H PRN PRN Reason: HYPERTENSION Mupirocin (Bactroban Ointment (For Decolonization) -) 1 applic NS BID [facility] Stop: 09/21/17 09:59 Last Admin: 09/18/17 09:22 Dose: 1 applic Pantoprazole Sodium (Protonix Iv) 40 mg IVPUSH DAILY [facility] Last Admin: 09/18/17 09:17 Dose: 40 mg Constitutional: Yes: Extubated on VM O2 and awake Eyes: Yes: WNL, PERRL HENT: Yes: WNL, Atraumatic, Normocephalic Neck: Yes: WNL, Supple, Trachea Midline Cardiovascular: Yes: WNL, Regular Rate and Rhythm Respiratory: Yes: Basilar rhonchi Left > Right Gastrointestinal: Yes: (+) Bowel Sounds ...Rectal Exam: Yes: Deferred Renal/: Yes: WNL Breast(s): Yes: WNL Musculoskeletal: Yes: WNL Extremities: Yes: WNL Edema: No Peripheral Pulses WNL: Yes Neurological: Yes: LE weakness ...Motor Strength: WNL Psychiatric: Yes: WNL Labs: Laboratory Results - last 24 hr 09/18/17 09/18/17 09/18/17 06:05 06:05 06:05 WBC 12.8 H RBC 2.70 L Hgb 10.4 L Hct 30.2 L MCV 111.7 H MCH 38.3 H MCHC 34.3 RDW 14.5 Plt Count 352 MPV 8.2 Neutrophils % 75.5 Lymphocytes % 9.6 D Monocytes % 11.0 H D Eosinophils % 3.5 D Basophils % 0.4 PT with INR 13.60 H INR 1.20 H PTT (Actin FS) 27.5 Sodium 140 Potassium 3.4 L Chloride 105 Carbon Dioxide 29 D Anion Gap 6 L BUN 20 H D Creatinine 0.6 L Creat Clearance w eGFR > 60 Random Glucose 119 H D Calcium 7.9 L Phosphorus 2.2 L Magnesium 1.8 Total Bilirubin 0.5 D AST 65 H D ALT 48 Alkaline Phosphatase 67 Creatine Kinase Total Protein 5.4 L Albumin 1.8 L 09/18/17 06:05 WBC RBC Hgb Hct MCV MCH MCHC RDW Plt Count MPV Neutrophils % Lymphocytes % Monocytes % Eosinophils % Basophils % PT with INR INR PTT (Actin FS) Sodium Potassium Chloride Carbon Dioxide Anion Gap BUN Creatinine Creat Clearance w eGFR Random Glucose Calcium Phosphorus Magnesium Total Bilirubin AST ALT Alkaline Phosphatase Creatine Kinase 120 Total Protein Albumin Problem List - Problems (1) Acute respiratory failure with hypoxemia Code(s): J96.01 - ACUTE RESPIRATORY FAILURE WITH HYPOXIA (2) Anxiety Code(s): F41.9 - ANXIETY DISORDER, UNSPECIFIED (3) Aspiration pneumonia Code(s): J69.0 - PNEUMONITIS DUE TO INHALATION OF FOOD AND VOMIT (4) CVA (cerebral vascular accident) Code(s): I63.9 - CEREBRAL INFARCTION, UNSPECIFIED Qualifiers: CVA mechanism: unspecified Qualified Code(s): I63.9 - Cerebral infarction, unspecified (5) Chronic kidney disease (CKD) Code(s): N18.9 - CHRONIC KIDNEY DISEASE, UNSPECIFIED (6) Dementia with behavioral disturbance Code(s): F03.91 - UNSPECIFIED DEMENTIA WITH BEHAVIORAL DISTURBANCE Qualifiers: Dementia type: vascular dementia Qualified Code(s): F01.51 - Vascular dementia with behavioral disturbance (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 PLAN: ABX coverage BD TX Follow final cultures IVF VTE prophylaxis O2 to maintain saturation Aspiration precautions Chest PT Dr Brooks Critical care time spent in reviewing chart, evaluating patient and formulating plan - 36 minutes.
[2017-09-18] MEDS: LACTATED RINGERS SOLUTION 1,000 ML/1,000 ML INFUS.BAG IV SCH ×2 (13:49→23:12)
--- NOTE | 2017-09-18 16:12 | PN ---
Progress Note (short form) - Note Progress Note: ################## medical (icu) note Current Medications Acetaminophen (Tylenol Suppository -) 650 mg NM Q6H PRN PRN Reason: FEVER Last Admin: 09/17/17 16:56 Dose: 650 mg Acetylcysteine (Mucomyst 20 Oral / Inh Use Only*) 300 mg NEB RTID [facility] Last Admin: 09/18/17 14:00 Dose: 300 mg Albuterol Sulfate (Ventolin 0.042trength) -) 1 amp NEB RTID [facility] Last Admin: 09/18/17 14:00 Dose: 1 amp Chlorhexidine Gluconate (Peridex -) 15 ml MM BID [facility] Last Admin: 09/18/17 09:23 Dose: Not Given Haloperidol (Haldol Injection (Fast Acting) -) 2.5 mg IM Q6H PRN PRN Reason: AGITATION Propofol (Diprivan -) 1,000,000 mcg in 100 mls @ 2.313 mls/hr IVPB TITR [facility]; 5 MCG/KG/MIN PRN Reason: Protocol Last Titration: 09/17/17 07:52 Dose: 0 mcg/kg/min, 0 mls/hr Lactated Ringer's (Lactated Ringers Solution) 1,000 ml in 1,000 mls @ 83 mls/ hr IV ASDIR [facility] Last Admin: 09/18/17 13:49 Dose: 83 mls/hr Vancomycin HCl 1,000 mg/ (Dextrose) 250 mls @ 250 mls/hr IVPB BID [facility] PRN Reason: Protocol Last Admin: 09/18/17 09:17 Dose: 250 mls/hr Ertapenem 1 gm/ Sodium (Chloride) 100 mls @ 200 mls/hr IVPB DAILY [facility] Last Admin: 09/18/17 09:22 Dose: 200 mls/hr Lorazepam (Ativan Injection -) 0.5 mg IVPUSH TID PRN PRN Reason: ANXIETY Metoprolol Tartrate (Lopressor Injection -) 5 mg IVPB Q4H PRN PRN Reason: HYPERTENSION Mupirocin (Bactroban Ointment (For Decolonization) -) 1 applic NS BID [facility] Stop: 09/21/17 09:59 Last Admin: 09/18/17 09:22 Dose: 1 applic Pantoprazole Sodium (Protonix Iv) 40 mg IVPUSH DAILY [facility] Last Admin: 09/18/17 09:17 Dose: 40 mg Laboratory Results - last 24 hr 09/18/17 09/18/17 09/18/17 06:05 06:05 06:05 WBC 12.8 H RBC 2.70 L Hgb 10.4 L Hct 30.2 L MCV 111.7 H MCH 38.3 H MCHC 34.3 RDW 14.5 Plt Count 352 MPV 8.2 Neutrophils % 75.5 Lymphocytes % 9.6 D Monocytes % 11.0 H D Eosinophils % 3.5 D Basophils % 0.4 PT with INR 13.60 H INR 1.20 H PTT (Actin FS) 27.5 Sodium 140 Potassium 3.4 L Chloride 105 Carbon Dioxide 29 D Anion Gap 6 L BUN 20 H D Creatinine 0.6 L Creat Clearance w eGFR > 60 Random Glucose 119 H D Calcium 7.9 L Phosphorus 2.2 L Magnesium 1.8 Total Bilirubin 0.5 D AST 65 H D ALT 48 Alkaline Phosphatase 67 Creatine Kinase Total Protein 5.4 L Albumin 1.8 L 09/18/17 06:05 WBC RBC Hgb Hct MCV MCH MCHC RDW Plt Count MPV Neutrophils % Lymphocytes % Monocytes % Eosinophils % Basophils % PT with INR INR PTT (Actin FS) Sodium Potassium Chloride Carbon Dioxide Anion Gap BUN Creatinine Creat Clearance w eGFR Random Glucose Calcium Phosphorus Magnesium Total Bilirubin AST ALT Alkaline Phosphatase Creatine Kinase 120 Total Protein Albumin Vital Signs Temp 100.9 F H 09/18/17 08:00 Pulse 72 09/18/17 12:00 Resp 22 09/18/17 12:00 BP 127/96 09/18/17 12:00 Pulse Ox 93 L 09/18/17 08:12 Intake & Output 09/17/17 09/18/17 09/18/17 23:59 11:59 23:59 Intake Total 340 1286 Output Total 350 275 100 Balance -10 1011 -100 Weight 150 lb 14.4 oz Intake: IV 996 LACTATED RINGERS SOLUTION 996 1,000 ml In 1,000 ml @ 83 mls/hr IV ASDIR [facility] Rx #:[id number] Tube Feeding 240 240 Tube Irrigant 100 50 Output: Urine 350 275 100 Abernathy 350 275 100 Other: Voiding Method Indwelling Catheter Indwelling Catheter Weight Measurement Method Built in [facility] CC: awake calm & quiet ```````````````````` skin--no acute lesions lungs--BS vented heart--RR abd--soft, BS quiet ext--no edema neuro--rousable; sensorium clouded but calm & non combative ``````````````````````````````````` Impression > Resp failure--2nd asp PNA (as described) PERSONNEL REPRESENTATIVE note read; no improvement on CXR; mgmt as per Pulm > Asp PNA--with underlying Hx of dysphagia; on dual Abs (see ID note); sputum C& S with gram(+) cocci in clusters. > fever--low grade; ongoing likely 2nd to aspiration event and residual inflamation; to check for FLU also > dehydration--improved with IVF > dementia--with behavior component; has been calm thus far > Leukocytosis--cultrures negative to date wBC improved, on dual Abs > Bacturia--U C& S negative > Low Potassium--replenish as needed ~~~~~~~~~~~~~ Dr Galloway Problem List - Problems (1) Delirium due to another medical condition Code(s): F05 - DELIRIUM DUE TO KNOWN PHYSIOLOGICAL CONDITION (2) Aspiration pneumonia Code(s): J69.0 - PNEUMONITIS DUE TO INHALATION OF FOOD AND VOMIT (3) Acute respiratory failure with hypoxemia Code(s): J96.01 - ACUTE RESPIRATORY FAILURE WITH HYPOXIA (4) Sepsis Code(s): A41.9 - SEPSIS, UNSPECIFIED ORGANISM Qualifiers: (5) Benign hypertensive renal disease Code(s): I12.9 - HYPERTENSIVE CHRONIC KIDNEY DISEASE W STG 1-4/UNSP CHR KDNY (6) CVA (cerebral vascular accident) Code(s): I63.9 - CEREBRAL INFARCTION, UNSPECIFIED Qualifiers: CVA mechanism: unspecified Qualified Code(s): I63.9 - Cerebral infarction, unspecified (7) Dementia with behavioral disturbance Code(s): F03.91 - UNSPECIFIED DEMENTIA WITH BEHAVIORAL DISTURBANCE Qualifiers: Dementia type: vascular dementia Qualified Code(s): F01.51 - Vascular dementia with behavioral disturbance (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
[2017-09-18] MEDS ORDERED: KCL 10 MEQ IVPB 10 MEQ/100 ML INFUS.BAG IVPB SCH (16:30)
[2017-09-18] MEDS ORDERED: ACETAMINOPHEN 325 MG TABLET (FP) ONE (18:27)
[2017-09-19 06:33] LABS: BASO % 0.5 % (0-2.0); EOS % 4.7 % (0-4.5); HEMOGLOBIN 9.4 GM/dL (11.7-16.9); LYMPH % 12.5 % (8-40); MCH 37.8 pg (25.7-33.7); MCHC 33.7 g/dl (32.0-35.9); MEAN CELL VOLUME 112.2 fl (80-96); MEAN PLT VOLUME 8.1 fl (7.5-11.1); MONO % 12.2 % (3.8-10.2); NEUT % 70.1 % (42.8-82.8); PLATELET COUNT 350 K/MM3 (134-434); RBC 2.49 M/mm3 (4.00-5.60); RDW 14.3 % (11.9-15.9); WHITE BLOOD COUNT 11.1 K/mm3 (4.0-10.0)
[2017-09-19 06:38] LABS: ALBUMIN 1.6 g/dl (3.4-5.0); ANION GAP 8 (8-16); BILIRUBIN,TOTAL 0.4 mg/dL (0.2-1.0); BLOOD UREA NITROGEN 12 mg/dL (7-18); CALCIUM 7.9 mg/dL (8.5-10.1); CHLORIDE 106 mmol/L (98-107); CO2 28 mmol/L (21-32); CREATININE 0.4 mg/dL (0.7-1.3); GLUCOSE,RANDOM 84 mg/dL (74-106); MAGNESIUM 1.8 mg/dL (1.8-2.4); POTASSIUM 3.3 mmol/L (3.5-5.1); SGOT/AST 43 U/L (15-37); SGPT/ALT 41 U/L (12-78); SODIUM 142 mmol/L (136-145)
[2017-09-19 06:39] LABS: ALK PHOS 56 U/L (45-117)
[2017-09-19] MEDS ORDERED: POTASSIUM CHLORIDE ORAL LIQUID 20 MEQ/15 ML PO ONE (07:30)
--- NOTE | 2017-09-19 07:32 | PN ---
Progress Note (short form) - Note Progress Note: alert extubated he has ngt for feeding Vital Signs Period Temp Pulse Resp BP Sys/Peña Pulse Ox Last 24 Hr 97.5 F-100.9 F 64-85 16-29 114-143/55-96 93-98 cor-rrr llungs decreased bs at bases abd soft,nt ext no edema CBC, BMP 09/19/17 06:00 cbc pending Microbiology 09/18/17 18:00 Nasopharyngeal Swab Influenza Types A,B Antigen (KELSI) - Final 09/18/17 18:00 Nasopharyngeal Swab - Final 09/15/17 17:45 Blood - Peripheral Venous Blood Culture - Preliminary NO GROWTH OBTAINED AFTER 72 HOURS, INCUBATION TO CONTINUE FOR 2 DAYS. 09/15/17 17:45 Blood - Peripheral Venous Blood Culture - Preliminary NO GROWTH OBTAINED AFTER 72 HOURS, INCUBATION TO CONTINUE FOR 2 DAYS. 09/16/17 23:00 Sputum - Endotrachea Suction/Ventilator Gram Stain - Final 09/16/17 23:00 Sputum - Endotrachea Suction/Ventilator Sputum Culture - Preliminary Presumptive Mssa (Pbp2a Neg) 09/15/17 20:10 Urine - Urine Abernathy Urine Culture - Final NO GROWTH OBTAINED 09/16/17 19:00 Urine For Antigen Detection Legionella Antigen - Final 09/16/17 19:00 Urine For Antigen Detection Streptococcus pneumoniae Antigen (M - Final a/p probable pneumonia ?aspiration pen allergy d/c vancomycin today f/u cultures continue ertapenem until final culture is back Problem List - Problems (1) Sepsis Code(s): A41.9 - SEPSIS, UNSPECIFIED ORGANISM Qualifiers: (2) Respiratory failure Code(s): J96.90 - RESPIRATORY FAILURE, UNSP, UNSP W HYPOXIA OR HYPERCAPNIA (3) Pneumonia Code(s): J18.9 - PNEUMONIA, UNSPECIFIED ORGANISM Qualifiers: Pneumonia type: aspiration pneumonia Aspiration pneumonia type: unspecified Laterality: unspecified laterality Lung location: unspecified part of lung Qualified Code(s): J69.0 - Pneumonitis due to inhalation of food and vomit (4) UTI (urinary tract infection) Code(s): N39.0 - URINARY TRACT INFECTION, SITE NOT SPECIFIED (5) Penicillin allergy Code(s): Z88.0 - ALLERGY STATUS TO PENICILLIN
--- NOTE | 2017-09-19 07:45 | PN ---
Progress Note (short form) - Note Progress Note: Seen and examined in the ICU Patient wake following simple commands but non verbal Sputum culture w/ MSSA Febrile 100.9 BP stable Resp status stable Current Medications Acetaminophen (Tylenol Suppository -) 650 mg [place] Q6H PRN PRN Reason: FEVER Last Admin: 09/17/17 16:56 Dose: 650 mg Acetylcysteine (Mucomyst 20 Oral / Inh Use Only*) 300 mg NEB RTID [facility] Last Admin: 09/18/17 21:22 Dose: 300 mg Albuterol Sulfate (Ventolin 0.042trength) -) 1 amp NEB RTID [facility] Last Admin: 09/18/17 21:22 Dose: 1 amp Haloperidol (Haldol Injection (Fast Acting) -) 2.5 mg IM Q6H PRN PRN Reason: AGITATION Lactated Ringer's (Lactated Ringers Solution) 1,000 ml in 1,000 mls @ 83 mls/ hr IV ASDIR [facility] Last Admin: 09/18/17 23:12 Dose: 83 mls/hr Ertapenem 1 gm/ Sodium (Chloride) 100 mls @ 200 mls/hr IVPB DAILY [facility] Last Admin: 09/18/17 09:22 Dose: 200 mls/hr Lorazepam (Ativan Injection -) 0.5 mg IVPUSH TID PRN PRN Reason: ANXIETY Metoprolol Tartrate (Lopressor Injection -) 5 mg IVPB Q4H PRN PRN Reason: HYPERTENSION Mupirocin (Bactroban Ointment (For Decolonization) -) 1 applic NS BID [facility] Stop: 09/21/17 09:59 Last Admin: 09/18/17 22:30 Dose: 1 applic Pantoprazole Sodium (Protonix Iv) 40 mg IVPUSH DAILY [facility] Last Admin: 09/18/17 09:17 Dose: 40 mg Potassium Chloride (Potassium Chloride Oral Liquid) 40 meq PO ONCE ONE Stop: 09/19/17 07:31 Vital Signs Period Temp Pulse Resp BP Sys/Peña Pulse Ox Last 24 Hr 97.5 F-100.9 F 64-85 16-29 114-143/55-96 93-98 Intake & Output 09/16/17 09/17/17 09/18/17 09/19/17 23:59 23:59 23:59 23:59 Intake Total 861.5 1634 2822 1246 Output Total 600 450 675 300 Balance 261.5 1184 2147 946 Weight 67.67 kg 67.7 kg 68.447 kg 69.655 kg Exam: Neuro: awake, following simple commands. strength 3/5 CV: SM Pulm: diminished in bases Abd: SNTND +BS Ext: WWP, trace edema CBCD WBC 12.8 K/mm3 (4.0-10.0) H 09/18/17 06:05 RBC 2.70 M/mm3 (4.00-5.60) L 09/18/17 06:05 Hgb 10.4 GM/dL (11.7-16.9) L 09/18/17 06:05 Hct 30.2 % (35.4-49) L 09/18/17 06:05 MCV 111.7 fl (80-96) H 09/18/17 06:05 MCHC 34.3 g/dl (32.0-35.9) 09/18/17 06:05 RDW 14.5 % (11.9-15.9) 09/18/17 06:05 Plt Count 352 K/MM3 (134-434) 09/18/17 06:05 MPV 8.2 fl (7.5-11.1) 09/18/17 06:05 CMP Sodium 142 mmol/L (136-145) 09/19/17 06:00 Potassium 3.3 mmol/L (3.5-5.1) L 09/19/17 06:00 Chloride 106 mmol/L (98-107) 09/19/17 06:00 Carbon Dioxide 28 mmol/L (21-32) 09/19/17 06:00 Anion Gap 8 (8-16) 09/19/17 06:00 BUN 12 mg/dL (7-18) D 09/19/17 06:00 Creatinine 0.4 mg/dL (0.7-1.3) L D 09/19/17 06:00 Creat Clearance w eGFR > 60 (>60) 09/19/17 06:00 Random Glucose 84 mg/dL (74-106) D 09/19/17 06:00 Calcium 7.9 mg/dL (8.5-10.1) L 09/19/17 06:00 Total Bilirubin 0.4 mg/dL (0.2-1.0) 09/19/17 06:00 AST 43 U/L (15-37) H D 09/19/17 06:00 ALT 41 U/L (12-78) 09/19/17 06:00 Alkaline Phosphatase 56 U/L (45-117) 09/19/17 06:00 Total Protein 5.0 g/dl (6.4-8.2) L 09/19/17 06:00 Albumin 1.6 g/dl (3.4-5.0) L 09/19/17 06:00 CARDIAC ENZYMES Creatine Kinase 120 IU/L (39-308) 09/18/17 06:05 Troponin I 0.05 ng/ml (0.00-0.05) D 09/15/17 18:47 Microbiology 09/18/17 18:00 Nasopharyngeal Swab Influenza Types A,B Antigen (KELSI) - Final 09/18/17 18:00 Nasopharyngeal Swab - Final 09/15/17 17:45 Blood - Peripheral Venous Blood Culture - Preliminary NO GROWTH OBTAINED AFTER 72 HOURS, INCUBATION TO CONTINUE FOR 2 DAYS. 09/15/17 17:45 Blood - Peripheral Venous Blood Culture - Preliminary NO GROWTH OBTAINED AFTER 72 HOURS, INCUBATION TO CONTINUE FOR 2 DAYS. 09/16/17 23:00 Sputum - Endotrachea Suction/Ventilator Gram Stain - Final 09/16/17 23:00 Sputum - Endotrachea Suction/Ventilator Sputum Culture - Preliminary Presumptive Mssa (Pbp2a Neg) 09/15/17 20:10 Urine - Urine Abernathy Urine Culture - Final NO GROWTH OBTAINED 09/16/17 19:00 Urine For Antigen Detection Legionella Antigen - Final 09/16/17 19:00 Urine For Antigen Detection Streptococcus pneumoniae Antigen (M - Final CXR: retrocardiac opacity +/- effusion Problem List - Problems (1) Acute respiratory failure with hypoxemia Code(s): J96.01 - ACUTE RESPIRATORY FAILURE WITH HYPOXIA (2) Anxiety Code(s): F41.9 - ANXIETY DISORDER, UNSPECIFIED (3) Aspiration pneumonia Code(s): J69.0 - PNEUMONITIS DUE TO INHALATION OF FOOD AND VOMIT (4) CVA (cerebral vascular accident) Code(s): I63.9 - CEREBRAL INFARCTION, UNSPECIFIED Qualifiers: CVA mechanism: unspecified Qualified Code(s): I63.9 - Cerebral infarction, unspecified (5) Chronic kidney disease (CKD) Code(s): N18.9 - CHRONIC KIDNEY DISEASE, UNSPECIFIED (6) Dementia with behavioral disturbance Code(s): F03.91 - UNSPECIFIED DEMENTIA WITH BEHAVIORAL DISTURBANCE Qualifiers: Dementia type: vascular dementia Qualified Code(s): F01.51 - Vascular dementia with behavioral disturbance (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 PLAN: ABX coverage fro MSSA pna, narrow per ID BD TX, pulmonary toilet wean O2 for sat >89% renal dose medications VTE prophylaxis O2 to maintain saturation Aspiration precautions Speech is following, cont NGT until able to pass swallow evaluation Boerem ACNP Pulm/CCM CCT: 35m
[2017-09-19] MEDS: ACETYLCYSTEINE 20% 200MG/ML 4 ML VIAL *FOR ORAL / INH USE ONLY NEB SCH ×3 (08:23→20:55)
[2017-09-19] MEDS: ALBUTEROL SO4 0.042% IH SOL 1.25 MG/3 ML VIAL.NEB NEB SCH ×3 (08:24→20:55)
[2017-09-19] MEDS: PANTOPRAZOLE SODIUM 40 MG VIAL IVPUSH SCH (09:13)
[2017-09-19] MEDS: MUPIROCIN 2% TOPICAL OINTMENT FOR DECOLONIZATION NS SCH ×2 (09:14→23:51)
[2017-09-19] MEDS: ERTAPENEM SODIUM 1 GM in SODIUM CHLORIDE 100 ML IVPB SCH (09:35)
[2017-09-19] MEDS ORDERED: ACETAMINOPHEN 325 MG TABLET (FP) ONE (15:54)
[2017-09-19] MEDS: ACETAMINOPHEN 650 MG SUPP.RECT PR PRN (15:57)
[2017-09-19] MEDS ORDERED: LOPERAMIDE HCL 1 MG/5 ML UNIT DOSE CUP NGT PRN (16:18)
--- NOTE | 2017-09-19 16:22 | PN ---
Progress Note (short form) - Note Progress Note: %%%%%%%%%%%%%%%% Medical (ICU) note Current Medications Acetaminophen (Tylenol Suppository -) 650 mg IN Q6H PRN PRN Reason: FEVER Last Admin: 09/19/17 15:57 Dose: 650 mg Acetylcysteine (Mucomyst 20 Oral / Inh Use Only*) 300 mg NEB RTID [facility] Last Admin: 09/19/17 13:55 Dose: 300 mg Albuterol Sulfate (Ventolin 0.042trength) -) 1 amp NEB RTID [facility] Last Admin: 09/19/17 08:24 Dose: 1 amp Haloperidol (Haldol Injection (Fast Acting) -) 2.5 mg IM Q6H PRN PRN Reason: AGITATION Lactated Ringer's (Lactated Ringers Solution) 1,000 ml in 1,000 mls @ 83 mls/ hr IV ASDIR [facility] Last Admin: 09/18/17 23:12 Dose: 83 mls/hr Ertapenem 1 gm/ Sodium (Chloride) 100 mls @ 200 mls/hr IVPB DAILY [facility] Last Admin: 09/19/17 09:35 Dose: 200 mls/hr Loperamide HCl (Imodium Liquid -) 2 mg NGT Q6H PRN PRN Reason: DIARRHEA Lorazepam (Ativan Injection -) 0.5 mg IVPUSH TID PRN PRN Reason: ANXIETY Metoprolol Tartrate (Lopressor Injection -) 5 mg IVPB Q4H PRN PRN Reason: HYPERTENSION Mupirocin (Bactroban Ointment (For Decolonization) -) 1 applic NS BID [facility] Stop: 09/21/17 09:59 Last Admin: 09/19/17 09:14 Dose: 1 applic Pantoprazole Sodium (Protonix Iv) 40 mg IVPUSH DAILY [facility] Last Admin: 09/19/17 09:13 Dose: 40 mg Laboratory Results - last 24 hr 09/19/17 09/19/17 06:00 06:00 WBC 11.1 H RBC 2.49 L Hgb 9.4 L Hct 28.0 L MCV 112.2 H MCH 37.8 H MCHC 33.7 RDW 14.3 Plt Count 350 MPV 8.1 Neutrophils % 70.1 Lymphocytes % 12.5 D Monocytes % 12.2 H Eosinophils % 4.7 H Basophils % 0.5 Sodium 142 Potassium 3.3 L Chloride 106 Carbon Dioxide 28 Anion Gap 8 BUN 12 D Creatinine 0.4 L D Creat Clearance w eGFR > 60 Random Glucose 84 D Calcium 7.9 L Phosphorus 3.0 D Magnesium 1.8 Total Bilirubin 0.4 AST 43 H D ALT 41 Alkaline Phosphatase 56 Total Protein 5.0 L Albumin 1.6 L Vital Signs Temp 97.5 F L 09/19/17 07:19 Pulse 66 09/19/17 14:00 Resp 18 09/19/17 14:00 BP 141/71 09/19/17 14:00 Pulse Ox 98 09/19/17 07:27 Intake & Output 09/18/17 09/19/17 09/19/17 23:59 11:59 23:59 Intake Total 1536 1246 1400 Output Total 400 300 250 Balance 8512 121 0386 Weight 153 lb 9 oz Intake: IV 836 611 3114 LACTATED RINGERS SOLUTION 007 281 3351 1,000 ml In 1,000 ml @ 83 mls/hr IV ASDIR [facility] Rx #:[id number] IVPB 250 250 100 Tube Feeding 240 300 Tube Irrigant 50 Output: Urine 400 300 250 [place] 400 300 250 Other: Voiding Method Indwelling Catheter Indwelling Catheter Bowel Movement Yes Yes: large brown liquid # Bowel Movements 2 Weight Measurement Method Built in [facility] CC: awake alert calm & quiet ```````````````````` skin--no acute lesions; IV site clean lungs--bilat rhonchi; unlabored heart--RR abd--soft, BS quiet ext--no edema neuro--rousable; sensorium clouded but calm & non combative ``````````````````````````````````` Impression > Resp failure--2nd asp PNA (as described) 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 > fever--no fever thus far; FLu swab negative > dehydration--improved with IVF; Bun + Cr better but now having diarrhea > dementia--with behavior component; has been calm thus far > Leukocytosis--normalizing > Bacturia--U C& S negative > Low Potassium--replenish as needed ~~~~~~~~~~~~~ Dr Galloway Problem List - Problems (1) Delirium due to another medical condition Code(s): F05 - DELIRIUM DUE TO KNOWN PHYSIOLOGICAL CONDITION (2) Aspiration pneumonia Code(s): J69.0 - PNEUMONITIS DUE TO INHALATION OF FOOD AND VOMIT (3) Acute respiratory failure with hypoxemia Code(s): J96.01 - ACUTE RESPIRATORY FAILURE WITH HYPOXIA (4) Sepsis Code(s): A41.9 - SEPSIS, UNSPECIFIED ORGANISM Qualifiers: (5) Benign hypertensive renal disease Code(s): I12.9 - HYPERTENSIVE CHRONIC KIDNEY DISEASE W STG 1-4/UNSP CHR KDNY (6) CVA (cerebral vascular accident) Code(s): I63.9 - CEREBRAL INFARCTION, UNSPECIFIED Qualifiers: CVA mechanism: unspecified Qualified Code(s): I63.9 - Cerebral infarction, unspecified (7) Dementia with behavioral disturbance Code(s): F03.91 - UNSPECIFIED DEMENTIA WITH BEHAVIORAL DISTURBANCE Qualifiers: Dementia type: vascular dementia Qualified Code(s): F01.51 - Vascular dementia with behavioral disturbance (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
[2017-09-19] MEDS: LORazepam 2 MG/ML SDV VIAL IVPUSH PRN (16:51)
[2017-09-19] MEDS: LACTATED RINGERS SOLUTION 1,000 ML/1,000 ML INFUS.BAG IV SCH (20:00)
[2017-09-19] MEDS ORDERED: ALBUTEROL SO4 0.083% IH SOL 2.5 MG/3 ML VIAL.NEB. NEB ONE (20:50)
[2017-09-20 06:27] LABS: ANION GAP 9 (8-16); BLOOD UREA NITROGEN 10 mg/dL (7-18); CALCIUM 8.1 mg/dL (8.5-10.1); CHLORIDE 107 mmol/L (98-107); CO2 27 mmol/L (21-32); CREATININE 0.5 mg/dL (0.7-1.3); GLUCOSE,RANDOM 78 mg/dL (74-106); MAGNESIUM 1.9 mg/dL (1.8-2.4); PHOSPHOROUS 2.5 mg/dL (2.5-4.9); POTASSIUM 3.9 mmol/L (3.5-5.1); SODIUM 143 mmol/L (136-145)
[2017-09-20] MEDS: ACETYLCYSTEINE 20% 200MG/ML 4 ML VIAL *FOR ORAL / INH USE ONLY NEB SCH ×3 (08:50→20:41)
[2017-09-20] MEDS: ALBUTEROL SO4 0.042% IH SOL 1.25 MG/3 ML VIAL.NEB NEB SCH ×3 (08:50→20:41)
--- NOTE | 2017-09-20 08:55 | PN ---
Progress Note (short form) - Note Progress Note: alert extubated he has ngt for feeding coughing reports he swelled up like a balloon when he got penicillin years ago Vital Signs Period Temp Pulse Resp BP Sys/Peña Pulse Ox Last 24 Hr 97.8 F-98.9 F 60-72 18-24 117-143/56-73 96-97 cor-rrr lungs bilateral rhonchi abd soft,nt ext no edema +NGT cxray unchanged CBC, BMP 09/19/17 06:00 09/20/17 05:50 Microbiology 09/15/17 17:45 Blood - Peripheral Venous Blood Culture - Preliminary NO GROWTH OBTAINED AFTER 96 HOURS, INCUBATION TO CONTINUE FOR 1 DAYS. 09/15/17 17:45 Blood - Peripheral Venous Blood Culture - Preliminary NO GROWTH OBTAINED AFTER 96 HOURS, INCUBATION TO CONTINUE FOR 1 DAYS. 09/16/17 23:00 Sputum - Endotrachea Suction/Ventilator Gram Stain - Final 09/16/17 23:00 Sputum - Endotrachea Suction/Ventilator Sputum Culture - Final Staphylococcus Aureus 09/18/17 18:00 Nasopharyngeal Swab Influenza Types A,B Antigen (KELSI) - Final 09/18/17 18:00 Nasopharyngeal Swab - Final 09/15/17 20:10 Urine - Urine Abernathy Urine Culture - Final NO GROWTH OBTAINED 09/16/17 19:00 Urine For Antigen Detection Legionella Antigen - Final 09/16/17 19:00 Urine For Antigen Detection Streptococcus pneumoniae Antigen (M - Final a/p probable pneumonia ?aspiration pen allergy-swells up per sputum culture - pure culture MSSA will switch to vancomycin alone and d/c ertapenem Problem List - Problems (1) Sepsis Code(s): A41.9 - SEPSIS, UNSPECIFIED ORGANISM Qualifiers: (2) Respiratory failure Code(s): J96.90 - RESPIRATORY FAILURE, UNSP, UNSP W HYPOXIA OR HYPERCAPNIA (3) Pneumonia Code(s): J18.9 - PNEUMONIA, UNSPECIFIED ORGANISM Qualifiers: Pneumonia type: aspiration pneumonia Aspiration pneumonia type: unspecified Laterality: unspecified laterality Lung location: unspecified part of lung Qualified Code(s): J69.0 - Pneumonitis due to inhalation of food and vomit (4) UTI (urinary tract infection) Code(s): N39.0 - URINARY TRACT INFECTION, SITE NOT SPECIFIED (5) Penicillin allergy Code(s): Z88.0 - ALLERGY STATUS TO PENICILLIN
--- NOTE | 2017-09-20 09:39 | PN ---
Progress Note (short form) - Note Progress Note: PULM/CCM 24HR -no acute events overnight -on bolus feeds per NG -afebile, to narrow to Vanco only, off erta per ID Vital Signs Temp 98.8 F 09/20/17 06:00 Pulse 65 09/20/17 08:00 Resp 20 09/20/17 08:34 BP 125/65 09/20/17 08:00 Pulse Ox 97 09/20/17 08:34 Intake & Output 09/19/17 09/19/17 09/20/17 11:59 23:59 12:59 Intake Total 1246 1400 1336 Output Total 300 250 350 Balance 946 1150 986 Weight 69.655 kg 70 kg Intake: IV 996 1000 996 LACTATED RINGERS SOLUTION 996 1000 996 1,000 ml In 1,000 ml @ 83 mls/hr IV ASDIR [facility] Rx #:[id number] IVPB 250 100 Tube Feeding 300 240 Tube Irrigant 100 Output: Urine 300 250 350 [place] 300 250 350 Other: Voiding Method Indwelling Catheter Indwelling Catheter Indwelling Catheter Bowel Movement Yes Yes: large brown liquid Yes # Bowel Movements 2 1 Weight Measurement Method Built in [facility] Built in [facility] Current Medications Acetaminophen (Tylenol Suppository -) 650 mg [place] Q6H PRN PRN Reason: FEVER Last Admin: 09/17/17 16:56 Dose: 650 mg Acetylcysteine (Mucomyst 20 Oral / Inh Use Only*) 300 mg NEB RTID [facility] Last Admin: 09/18/17 21:22 Dose: 300 mg Albuterol Sulfate (Ventolin 0.042trength) -) 1 amp NEB RTID [facility] Last Admin: 09/18/17 21:22 Dose: 1 amp Haloperidol (Haldol Injection (Fast Acting) -) 2.5 mg IM Q6H PRN PRN Reason: AGITATION Lactated Ringer's (Lactated Ringers Solution) 1,000 ml in 1,000 mls @ 83 mls/ hr IV ASDIR [facility] Last Admin: 09/18/17 23:12 Dose: 83 mls/hr Ertapenem 1 gm/ Sodium (Chloride) 100 mls @ 200 mls/hr IVPB DAILY [facility] Last Admin: 09/18/17 09:22 Dose: 200 mls/hr Lorazepam (Ativan Injection -) 0.5 mg IVPUSH TID PRN PRN Reason: ANXIETY Metoprolol Tartrate (Lopressor Injection -) 5 mg IVPB Q4H PRN PRN Reason: HYPERTENSION Mupirocin (Bactroban Ointment (For Decolonization) -) 1 applic NS BID [facility] Stop: 09/21/17 09:59 Last Admin: 09/18/17 22:30 Dose: 1 applic Pantoprazole Sodium (Protonix Iv) 40 mg IVPUSH DAILY [facility] Last Admin: 09/18/17 09:17 Dose: 40 mg Potassium Chloride (Potassium Chloride Oral Liquid) 40 meq PO ONCE ONE Stop: 09/19/17 07:31 Exam: Neuro: awake, following simple commands. strength 3/5, weak cough CV: III/ PASHA, regular Pulm: diminished in bases, clear anteroion Abd: SNTND +BS Ext: WWP, trace edema CXR: still with some basilar congestion, infiltrate, largely unchanged, NGT in satisfactory position CBC, BMP 09/19/17 06:00 09/20/17 05:50 Microbiology 09/18/17 18:00 Nasopharyngeal Swab Influenza Types A,B Antigen (KELSI) - Final 09/18/17 18:00 Nasopharyngeal Swab - Final 09/15/17 17:45 Blood - Peripheral Venous Blood Culture - Preliminary NO GROWTH OBTAINED AFTER 72 HOURS, INCUBATION TO CONTINUE FOR 2 DAYS. 09/15/17 17:45 Blood - Peripheral Venous Blood Culture - Preliminary NO GROWTH OBTAINED AFTER 72 HOURS, INCUBATION TO CONTINUE FOR 2 DAYS. 09/16/17 23:00 Sputum - Endotrachea Suction/Ventilator Gram Stain - Final 09/16/17 23:00 Sputum - Endotrachea Suction/Ventilator Sputum Culture - Preliminary Presumptive Mssa (Pbp2a Neg) 09/15/17 20:10 Urine - Urine [place]nathy Urine Culture - Final NO GROWTH OBTAINED 09/16/17 19:00 Urine For Antigen Detection Legionella Antigen - Final 09/16/17 19:00 Urine For Antigen Detection Streptococcus pneumoniae Antigen (M - Final CXR: retrocardiac opacity +/- effusion Problem List - Problems (1) Acute respiratory failure with hypoxemia Code(s): J96.01 - ACUTE RESPIRATORY FAILURE WITH HYPOXIA (2) Anxiety Code(s): F41.9 - ANXIETY DISORDER, UNSPECIFIED (3) Aspiration pneumonia Code(s): J69.0 - PNEUMONITIS DUE TO INHALATION OF FOOD AND VOMIT (4) CVA (cerebral vascular accident) Code(s): I63.9 - CEREBRAL INFARCTION, UNSPECIFIED Qualifiers: CVA mechanism: unspecified Qualified Code(s): I63.9 - Cerebral infarction, unspecified (5) Chronic kidney disease (CKD) Code(s): N18.9 - CHRONIC KIDNEY DISEASE, UNSPECIFIED (6) Dementia with behavioral disturbance Code(s): F03.91 - UNSPECIFIED DEMENTIA WITH BEHAVIORAL DISTURBANCE Qualifiers: Dementia type: vascular dementia Qualified Code(s): F01.51 - Vascular dementia with behavioral disturbance (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 PLAN: Vanco for MSSA per ID given PCN allergy, d/c erta BD TX, pulmonary toilet wean O2 for sat >89% renal dose medications VTE prophylaxis O2 to maintain saturation Aspiration precautions Speech is following, cont NGT until able to pass swallow evaluation, may need FEES ok for floor Carpenter ACNP [id number]
[2017-09-20] MEDS ORDERED: PT OWN MED DRAWER 7, Y5N ONE ×2 (09:55→21:17)
[2017-09-20] MEDS: VANCOMYCIN 1,000 MG in DEXTROSE 5%-WATER - 250 ML IVPB SCH ×2 (10:11→21:19)
[2017-09-20] MEDS: MUPIROCIN 2% TOPICAL OINTMENT FOR DECOLONIZATION NS SCH ×2 (10:11→21:19)
[2017-09-20] MEDS: PANTOPRAZOLE SODIUM 40 MG VIAL IVPUSH SCH (10:11)
--- NOTE | 2017-09-20 17:50 | PN ---
Progress Note (short form) - Note Progress Note: medical (ICU) note Current Medications Acetaminophen (Tylenol Suppository -) 650 mg [place] Q6H PRN PRN Reason: FEVER Last Admin: 09/19/17 15:57 Dose: 650 mg Acetylcysteine (Mucomyst 20 Oral / Inh Use Only*) 300 mg NEB RTID [facility] Last Admin: 09/20/17 14:43 Dose: 300 mg Albuterol Sulfate (Ventolin 0.042trength) -) 1 amp NEB RTID [facility] Last Admin: 09/20/17 14:43 Dose: 1 amp Amino Acids (Prosource No Carb Liquid Pkt) 30 ml NGT DAILY [facility] Haloperidol (Haldol Injection (Fast Acting) -) 2.5 mg IM Q6H PRN PRN Reason: AGITATION Vancomycin HCl 1,000 mg/ (Dextrose) 250 mls @ 166.667 mls/hr IVPB BID [facility] PRN Reason: Protocol Last Admin: 09/20/17 10:11 Dose: 166.667 mls/hr Dextrose (D5w -) 1,000 mls @ 22 mls/hr IV .[id number] [facility] Loperamide HCl (Imodium Liquid -) 2 mg NGT Q6H PRN PRN Reason: DIARRHEA Last Admin: 09/19/17 16:51 Dose: 2 mg Lorazepam (Ativan Injection -) 0.5 mg IVPUSH TID PRN PRN Reason: ANXIETY Last Admin: 09/19/17 16:51 Dose: 0.5 mg Metoprolol Tartrate (Lopressor Injection -) 5 mg IVPB Q4H PRN PRN Reason: HYPERTENSION Mupirocin (Bactroban Ointment (For Decolonization) -) 1 applic NS BID [facility] Stop: 09/21/17 09:59 Last Admin: 09/20/17 10:11 Dose: 1 applic Pantoprazole Sodium (Protonix Iv) 40 mg IVPUSH DAILY [facility] Last Admin: 09/20/17 10:11 Dose: 40 mg Laboratory Results - last 24 hr 09/20/17 05:50 Sodium 143 Potassium 3.9 Chloride 107 Carbon Dioxide 27 Anion Gap 9 BUN 10 Creatinine 0.5 L D Random Glucose 78 Calcium 8.1 L Phosphorus 2.5 Magnesium 1.9 Vital Signs Temp 98.8 F 09/20/17 06:00 Pulse 71 09/20/17 16:00 Resp 18 09/20/17 16:00 BP 142/69 09/20/17 16:00 Pulse Ox 96 09/20/17 16:33 Intake & Output 09/19/17 09/20/17 09/20/17 22:59 11:59 23:59 Intake Total 1014 Output Total Balance 1014 Weight Intake: IV 664 LACTATED RINGERS SOLUTION 664 1,000 ml In 1,000 ml @ 83 mls/hr IV ASDIR [facility] Rx #:[id number] IVPB 350 Tube Feeding Tube Irrigant Output: Urine [place] Other: Voiding Method Bowel Movement # Bowel Movements Weight Measurement Method CC: awake alert calm & quiet ```````````````````` skin--Rt butt skin opening lungs--bilat rhonchi; unlabored heart--RR abd--soft, BS quiet ext--trace edema neuro--rousable; good eye contact; impoverished cognition ``````````````````````````````````` Impression > Resp failure--2nd asp PNA (as described) 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 PLAN: cut RL and use D5w at 22/hr for now; recheck CXR in AM. > anemia--will recheck CBC in AM; may in part be dilutional; will cut back on fluids. > Diarrhea--has abated; keep PRN Imodium, will check CDiff if he makes abnL stool > Asp PNA--with underlying Hx of dysphagia; sputum C&S with gram(+) cocci in clusters MSSA (see ID note); check Vanco trough. > fever--no fever thus far; FLu swab negative > dehydration--improved Bun/cr with IVF; will stop RL > dementia--with behavior component; has been calm thus far > dysphagia--has NGT; will up feeds to 240cc TID bolus with residual checks prior to each bolus > Low Potassium--replenish as needed > decub ulcer--Buttock; apply adhesive ````````````````````````````````````````````````````````````````````````````` Family members at bedside every day since admission and are being kept abreast of his condition & plans ~~~~~~~~~~~~~~~~~~~~~~~ Dr Galloway Problem List - Problems (1) Delirium due to another medical condition Code(s): F05 - DELIRIUM DUE TO KNOWN PHYSIOLOGICAL CONDITION (2) Aspiration pneumonia Code(s): J69.0 - PNEUMONITIS DUE TO INHALATION OF FOOD AND VOMIT (3) Acute respiratory failure with hypoxemia Code(s): J96.01 - ACUTE RESPIRATORY FAILURE WITH HYPOXIA (4) Sepsis Code(s): A41.9 - SEPSIS, UNSPECIFIED ORGANISM Qualifiers: (5) Benign hypertensive renal disease Code(s): I12.9 - HYPERTENSIVE CHRONIC KIDNEY DISEASE W STG 1-4/UNSP CHR KDNY (6) CVA (cerebral vascular accident) Code(s): I63.9 - CEREBRAL INFARCTION, UNSPECIFIED Qualifiers: CVA mechanism: unspecified Qualified Code(s): I63.9 - Cerebral infarction, unspecified (7) Dementia with behavioral disturbance Code(s): F03.91 - UNSPECIFIED DEMENTIA WITH BEHAVIORAL DISTURBANCE Qualifiers: Dementia type: vascular dementia Qualified Code(s): F01.51 - Vascular dementia with behavioral disturbance (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
[2017-09-20] MEDS: DEXTROSE 5%-WATER - 1,000 ML IV SCH (21:19)
[2017-09-20] MEDS: LORazepam 2 MG/ML SDV VIAL IVPUSH PRN (23:35)
[2017-09-21 05:59] LABS: HEMATOCRIT 27.7 % (35.4-49); HEMOGLOBIN 9.7 GM/dL (11.7-16.9); MCH 38.6 pg (25.7-33.7); MCHC 34.9 g/dl (32.0-35.9); MEAN CELL VOLUME 110.8 fl (80-96); MEAN PLT VOLUME 7.7 fl (7.5-11.1); PLATELET COUNT 417 K/MM3 (134-434); WHITE BLOOD COUNT 9.8 K/mm3 (4.0-10.0)
[2017-09-21 06:16] LABS: ADD RBC MORPHOLOGY YES
[2017-09-21 06:19] LABS: MACROCYTOSIS 3+
[2017-09-21 06:25] LABS: ANION GAP 8 (8-16); BLOOD UREA NITROGEN 8 mg/dL (7-18); CALCIUM 7.9 mg/dL (8.5-10.1); CHLORIDE 101 mmol/L (98-107); CO2 29 mmol/L (21-32); CREATININE 0.4 mg/dL (0.7-1.3); GLUCOSE,RANDOM 77 mg/dL (74-106); SODIUM 138 mmol/L (136-145)
[2017-09-21] MEDS ORDERED: ALBUTEROL SO4 0.083% IH SOL 2.5 MG/3 ML VIAL.NEB. NEB ONE ×3 (07:47→21:28)
[2017-09-21] MEDS: ALBUTEROL SO4 0.042% IH SOL 1.25 MG/3 ML VIAL.NEB NEB SCH ×3 (08:05→21:50)
[2017-09-21] MEDS: ACETYLCYSTEINE 20% 200MG/ML 4 ML VIAL *FOR ORAL / INH USE ONLY NEB SCH ×3 (08:05→21:50)
--- NOTE | 2017-09-21 08:06 | PN ---
Progress Note, Physician Chief Complaint: ID Vancomycin now day 6 antibiotics PCN allergic patient with MSSA in sputum Did have fever on admission but not currently - Current Medication List Current Medications: Active Medications Acetaminophen (Tylenol Suppository -) 650 mg [place] Q6H PRN PRN Reason: FEVER Last Admin: 09/19/17 15:57 Dose: 650 mg Acetylcysteine (Mucomyst 20 Oral / Inh Use Only*) 300 mg NEB RTID [facility] Last Admin: 09/20/17 20:41 Dose: 300 mg Albuterol Sulfate (Ventolin 0.042trength) -) 1 amp NEB RTID [facility] Last Admin: 09/20/17 20:41 Dose: 1 amp Amino Acids (Prosource No Carb Liquid Pkt) 30 ml NGT DAILY [facility] Haloperidol (Haldol Injection (Fast Acting) -) 2.5 mg IM Q6H PRN PRN Reason: AGITATION Vancomycin HCl 1,000 mg/ (Dextrose) 250 mls @ 166.667 mls/hr IVPB BID [facility] PRN Reason: Protocol Last Admin: 09/20/17 21:19 Dose: 166.667 mls/hr Dextrose (D5w -) 1,000 mls @ 22 mls/hr IV ASDIR [facility] Last Admin: 09/20/17 21:19 Dose: 22 mls/hr Loperamide HCl (Imodium Liquid -) 2 mg NGT Q6H PRN PRN Reason: DIARRHEA Last Admin: 09/19/17 16:51 Dose: 2 mg Lorazepam (Ativan Injection -) 0.5 mg IVPUSH TID PRN PRN Reason: ANXIETY Last Admin: 09/20/17 23:35 Dose: 0.5 mg Metoprolol Tartrate (Lopressor Injection -) 5 mg IVPB Q4H PRN PRN Reason: HYPERTENSION Mupirocin (Bactroban Ointment (For Decolonization) -) 1 applic NS BID [facility] Stop: 09/21/17 09:59 Last Admin: 09/20/17 21:19 Dose: 1 applic Pantoprazole Sodium (Protonix Iv) 40 mg IVPUSH DAILY [facility] Last Admin: 09/20/17 10:11 Dose: 40 mg - Objective Vital Signs: Vital Signs Temperature 98.0 F 09/21/17 06:00 Pulse Rate 64 09/21/17 06:00 Respiratory Rate 20 09/21/17 06:00 Blood Pressure 141/72 09/21/17 06:00 O2 Sat by Pulse Oximetry (%) 96 09/20/17 21:00 Constitutional: Yes: Moderate Distress Neck: Yes: WNL, Supple Cardiovascular: Yes: S1, S2 Respiratory: Yes: WNL, CTA Bilaterally, Rhonchi Gastrointestinal: Yes: Soft. No: Tenderness, Tenderness, Rebound Extremities: Yes: Other Edema: Yes Labs: CBC, BMP 09/21/17 05:15 09/21/17 05:15 INR, PTT INR 1.20 (0.82-1.09) H 09/18/17 06:05 Assessment/Plan Microbiology 09/16/17 23:00 Sputum - Endotrachea Suction/Ventilator Gram Stain - Final 09/16/17 23:00 Sputum - Endotrachea Suction/Ventilator Sputum Culture - Final Staphylococcus Aureus 09/15/17 20:10 Urine - Urine Abernathy Urine Culture - Final NO GROWTH OBTAINED 09/15/17 17:45 Blood - Peripheral Venous Blood Culture - Final NO GROWTH AFTER 5 DAYS INCUBATION 09/15/17 17:45 Blood - Peripheral Venous Blood Culture - Final NO GROWTH AFTER 5 DAYS INCUBATION Laboratory Tests 09/16/17 09/21/17 09/21/17 06:30 05:15 05:15 WBC 19.8 H 9.8 Hgb 9.7 L Hct 27.7 L Plt Count 417 BUN 8 Creatinine 0.4 L Assessment Working diagnosis respiratory failure with fever ( resolved) and sepsis ( resolved) MSSA in sputum ? Colonization Got Ertepenem until yesterday Plan Continue Vancomycin as ordered and check level trough tomorrow Ritu ÁLVAREZ
[2017-09-21 08:10] LABS: MAGNESIUM 1.6 mg/dL (1.8-2.4); PHOSPHOROUS 2.3 mg/dL (2.5-4.9)
[2017-09-21] MEDS ORDERED: PT OWN MED DRAWER 7, Y5N ONE (09:27)
[2017-09-21] MEDS: PANTOPRAZOLE SODIUM 40 MG VIAL IVPUSH SCH (09:29)
[2017-09-21] MEDS: AMINO ACIDS/PROTEIN HYDROLYS 30 ML LIQUID.PKT NGT SCH (09:29)
[2017-09-21] MEDS: VANCOMYCIN 1,000 MG in DEXTROSE 5%-WATER - 250 ML IVPB SCH (09:29)
[2017-09-21 09:56] LABS: MAGNESIUM 1.6 mg/dL (1.8-2.4); PHOSPHOROUS 2.1 mg/dL (2.5-4.9)
--- NOTE | 2017-09-21 12:43 | PN ---
Progress Note, [employer] - Note Progress Note: MBS when medically stable. Continue NGT for now. Selected Entries 09/21/17 09/21/17 09/21/17 02:00 06:00 09:28 Lunch NPO Temperature 98.0 F 98.0 F 09/21/17 09/21/17 10:05 12:00 Lunch NPO Temperature 98 F Laboratory Tests 09/19/17 09/21/17 06:00 05:15 WBC 11.1 H 9.8
--- NOTE | 2017-09-21 13:35 | PN ---
Physical Exam: SUBJECTIVE: Patient reports he feels possibly slightly improved from yesterday. Slightly improved in breathing and mentating at baseline as per who is at bedside. Patient denies SOB, pain, or other symptoms. OBJECTIVE: No acute events overnight Vital Signs Period Temp Pulse Resp BP Sys/Peña Pulse Ox Last 24 Hr 98 F-98.4 F 63-78 18-25 114-153/55-75 96-96 GENERAL: The patient is awake, alert, and fully oriented, in no acute distress. HEAD: Normal with no signs of trauma. EYES: PERRL, extraocular movements intact, sclera anicteric, conjunctiva clear. No ptosis. ENT: Ears normal, nares patent, oropharynx clear without exudates, moist mucous membranes. NECK: Trachea midline, full range of motion, supple. LUNGS: +Diffuse crackles appreciated throughout lung perry. Patient otherwise oxygenating well on supplemental oxygen. HEART: Regular rate and rhythm, S1, S2 without murmur, rub or gallop. ABDOMEN: Soft, nontender, nondistended, normoactive bowel sounds, no guarding, no rebound, no hepatosplenomegaly, no masses. EXTREMITIES: 2+ pulses, warm, well-perfused, no edema. NEUROLOGICAL: Cranial nerves II through XII grossly intact. Normal speech. PSYCH: Normal mood, normal affect. SKIN: Warm, dry, normal turgor, no rashes or lesions noted Laboratory Results - last 24 hr 09/21/17 09/21/17 09/21/17 05:15 05:15 09:00 WBC 9.8 RBC 2.50 L Hgb 9.7 L Hct 27.7 L MCV 110.8 H MCH 38.6 H MCHC 34.9 RDW 14.0 Plt Count 417 MPV 7.7 Macrocytosis 3+ Sodium 138 Potassium 4.0 Chloride 101 Carbon Dioxide 29 Anion Gap 8 BUN 8 Creatinine 0.4 L Random Glucose 77 Calcium 7.9 L Phosphorus 2.3 L Magnesium 1.6 L Vancomycin Pre-Dose 19.216 H* 09/21/17 09:00 WBC RBC Hgb Hct MCV MCH MCHC RDW Plt Count MPV Macrocytosis Sodium Potassium Chloride Carbon Dioxide Anion Gap BUN Creatinine Random Glucose Calcium Phosphorus 2.1 L Magnesium 1.6 L Vancomycin Pre-Dose Active Medications Generic Name Dose Route Start Last Admin Trade Name Freq PRN Reason Stop Dose Admin Acetaminophen 650 mg 03/06/18 22:02 09/19/17 15:57 Tylenol Suppository - [place] 650 mg Q6H PRN Administration FEVER Acetylcysteine 300 mg 09/17/17 22:00 09/21/17 08:05 Mucomyst 20 Oral / Inh Use Only* NEB 300 mg RTID LORENE Administration Albuterol Sulfate 1 amp 09/17/17 22:00 09/21/17 08:05 Ventolin 0.042trength) - NEB 1 amp RTID LORENE Administration Amino Acids 30 ml 09/21/17 10:00 09/21/17 09:29 Prosource No Carb Liquid Pkt NGT 30 ml DAILY [facility] Administration Enoxaparin Sodium 40 mg 09/21/17 13:15 Lovenox - SQ DAILY [facility] Haloperidol 2.5 mg 09/15/17 22:05 Haldol Injection (Fast Acting) - IM Q6H PRN AGITATION Vancomycin HCl 1,000 mg/ 250 mls @ 166.667 mls/hr 09/20/17 10:00 09/21/17 09: 29 Dextrose IVPB 166.667 mls/hr BID LORENE Administration Protocol Dextrose 1,000 mls @ 22 mls/hr 09/20/17 17:45 09/20/17 21:19 D5w - IV 22 mls/hr ASDIR [facility] Administration Loperamide HCl 2 mg 09/19/17 16:18 09/19/17 16:51 Imodium Liquid - NGT 2 mg Q6H PRN Administration DIARRHEA Lorazepam 0.5 mg 09/15/17 22:03 09/20/17 23:35 Ativan Injection - IVPUSH 0.5 mg TID PRN Administration ANXIETY Metoprolol Tartrate 5 mg 09/15/17 22:07 Lopressor Injection - IVPB Q4H PRN HYPERTENSION Pantoprazole Sodium 40 mg 09/16/17 10:00 09/21/17 09:29 Protonix Iv IVPUSH 40 mg DAILY [facility] Administration ASSESSMENT/PLAN: Mr. Kc is a 81 yo male w/ pmh of HTN, multiple CVAs (ischemic), aspiration pneumonia, HLD, dementia, GI Bleed, anxiety, depression, gout, admitted to ICU from SNF for left lower lobe pneumonia after witnessed applesauch aspiration w/ subsequent intubation and qSOFA 3 score. SOB/Aspiration pneumonia -2ndare to presenting aspiration pneumonia. CXR reveals improved aeration with increased Left lung base changes concerning for atelectasis vs. infiltrate. - Patient currently satting well on 50% mask; trial initiated with nasal cannula at 3L O2. - sputum grew gram(+) cocci in clusters / MSSA. Undergoing treatment w/ vancomycin - defer to ID for continued management. - Will Prophylaxis -SCDs, SQH, replenish electrolytes as needed. -PPI Dysphagia -NGT in place. Feeds TID. Failed speech evaluation to date. Will continue to evaluate for starting oral feeds. Disposition -Family at bedside and up to date with status -Will likely transfer to floor soon pending continued improvement of breathing and CXR. Tomorrow can transfer likely Visit type - Emergency Visit Emergency Visit: Yes ED Registration Date: 09/15/17 Care time: The patient presented to the Emergency Department on the above date and was hospitalized for further evaluation of their emergent condition. - New Patient This patient is new to me today: Yes Date on this admission: 09/21/17 - Critical Care Critical Care patient: Yes Total Critical Care Time (in minutes): 35 Critical Care Statement: The care of this patient involved high complexity decision making to prevent further life threatening deterioration of the patient 's condition and/or to evaluate & treat vital organ system(s) failure or risk of failure.
--- NOTE | 2017-09-21 13:38 | PN ---
Teaching Attending Note Name of Resident: Dylon Hamilton ATTENDING PHYSICIAN STATEMENT I saw and evaluated the patient. I reviewed the resident's note and discussed the case with the resident. I agree with the resident's findings and plan as documented. SUBJECTIVE: Pt seen and examined in the ICU. Remains on 50% ventimask. More somnolent today per at bedside. No fevers or chills. OBJECTIVE: Last Vital Signs Temp Pulse Resp BP Pulse Ox 98.8 F 73 20 123/63 96 09/21/17 14:00 09/21/17 14:00 09/21/17 14:00 09/21/17 14:00 09/21/17 10:05 Intake & Output 09/18/17 09/19/17 09/20/17 09/21/17 22:59 22:59 23:59 23:59 Intake Total 454 Output Total 300 Balance 154 Weight 70.987 kg Gen: mildly tachypneic at rest Heart: RRR Lung: scattered rhonchi Abd: soft, nontender Ext: no edema CBC, BMP 09/21/17 05:15 09/21/17 05:15 Active Medications Acetaminophen (Tylenol Suppository -) 650 mg [place] Q6H PRN PRN Reason: FEVER Last Admin: 09/19/17 15:57 Dose: 650 mg Acetylcysteine (Mucomyst 20 Oral / Inh Use Only*) 300 mg NEB RTID [facility] Last Admin: 09/21/17 13:46 Dose: 300 mg Albuterol Sulfate (Ventolin 0.042trength) -) 1 amp NEB RTID [facility] Last Admin: 09/21/17 13:46 Dose: 1 amp Amino Acids (Prosource No Carb Liquid Pkt) 30 ml NGT DAILY [facility] Last Admin: 09/21/17 09:29 Dose: 30 ml Enoxaparin Sodium (Lovenox -) 40 mg SQ DAILY [facility] Haloperidol (Haldol Injection (Fast Acting) -) 2.5 mg IM Q6H PRN PRN Reason: AGITATION Vancomycin HCl 1,000 mg/ (Dextrose) 250 mls @ 166.667 mls/hr IVPB BID L[facility]ENE PRN Reason: Protocol Last Admin: 09/21/17 09:29 Dose: 166.667 mls/hr Dextrose (D5w -) 1,000 mls @ 22 mls/hr IV ASDIR [facility] Last Admin: 09/20/17 21:19 Dose: 22 mls/hr Loperamide HCl (Imodium Liquid -) 2 mg NGT Q6H PRN PRN Reason: DIARRHEA Last Admin: 09/19/17 16:51 Dose: 2 mg Lorazepam (Ativan Injection -) 0.5 mg IVPUSH TID PRN PRN Reason: ANXIETY Last Admin: 09/20/17 23:35 Dose: 0.5 mg Metoprolol Tartrate (Lopressor Injection -) 5 mg IVPB Q4H PRN PRN Reason: HYPERTENSION Pantoprazole Sodium (Protonix Iv) 40 mg IVPUSH DAILY [facility] Last Admin: 09/21/17 09:29 Dose: 40 mg ASSESSMENT AND PLAN: Acute Hypoxic Respiratory Failure MSSA Pneumonia Sepsis resolving Acute Kidney Injury improving Dysphagia - antibiotics per ID - aspiration precautions - inhaled bronchodilators - O2 to keep SpO2 >90% - swallow eval - DVT prophylaxis - can monitor on telemetry with pulse oximetry monitoring critical care time spent in reviewing chart, evaluating patient and formulating plan 35 min
[2017-09-21] MEDS ORDERED: MAGNESIUM 2GM/50ML STERILE WATER IVPB IVPB ONE (14:00)
[2017-09-21] MEDS ORDERED: CALCIUM ACETATE 667 MG CAPSULE (FP) PO ONE (14:02)
[2017-09-21] MEDS ORDERED: FUROSEMIDE 40 MG/4 ML INJECTABLE VIAL IVPUSH ONE (14:07)
[2017-09-21] MEDS ORDERED: MAGNESIUM SULF 50% (8.12 MEQ/2 ML-1 GM VIAL) ONE (14:33)
[2017-09-21] MEDS: ENOXAPARIN NA (PORCINE) 40 MG/0.4 ML DISP.SYRIN SQ SCH (14:53)
--- NOTE | 2017-09-21 17:01 | PN ---
Progress Note (short form) - Note Progress Note: &&&&&&&&&&&&&&&& Medical (ICU) note Current Medications Acetaminophen (Tylenol Suppository -) 650 mg [place] Q6H PRN PRN Reason: FEVER Last Admin: 09/19/17 15:57 Dose: 650 mg Acetylcysteine (Mucomyst 20 Oral / Inh Use Only*) 300 mg NEB RTID [facility] Last Admin: 09/21/17 13:46 Dose: 300 mg Albuterol Sulfate (Ventolin 0.042trength) -) 1 amp NEB RTID [facility] Last Admin: 09/21/17 13:46 Dose: 1 amp Amino Acids (Prosource No Carb Liquid Pkt) 30 ml NGT DAILY [facility] Last Admin: 09/21/17 09:29 Dose: 30 ml Enoxaparin Sodium (Lovenox -) 40 mg SQ DAILY [facility] Last Admin: 09/21/17 14:53 Dose: 40 mg Haloperidol (Haldol Injection (Fast Acting) -) 2.5 mg IM Q6H PRN PRN Reason: AGITATION Dextrose (D5w -) 1,000 mls @ 22 mls/hr IV ASDIR [facility] Last Admin: 09/20/17 21:19 Dose: 22 mls/hr Vancomycin HCl 750 mg/ (Dextrose) 250 mls @ 250 mls/hr IVPB BID [facility] PRN Reason: Protocol Loperamide HCl (Imodium Liquid -) 2 mg NGT Q6H PRN PRN Reason: DIARRHEA Last Admin: 09/19/17 16:51 Dose: 2 mg Lorazepam (Ativan Injection -) 0.5 mg IVPUSH TID PRN PRN Reason: ANXIETY Last Admin: 09/20/17 23:35 Dose: 0.5 mg Metoprolol Tartrate (Lopressor Injection -) 5 mg IVPB Q4H PRN PRN Reason: HYPERTENSION Pantoprazole Sodium (Protonix Iv) 40 mg IVPUSH DAILY [facility] Last Admin: 09/21/17 09:29 Dose: 40 mg Laboratory Results - last 24 hr 09/21/17 09/21/17 09/21/17 05:15 05:15 09:00 WBC 9.8 RBC 2.50 L Hgb 9.7 L Hct 27.7 L MCV 110.8 H MCH 38.6 H MCHC 34.9 RDW 14.0 Plt Count 417 MPV 7.7 Macrocytosis 3+ Sodium 138 Potassium 4.0 Chloride 101 Carbon Dioxide 29 Anion Gap 8 BUN 8 Creatinine 0.4 L Random Glucose 77 Calcium 7.9 L Phosphorus 2.3 L Magnesium 1.6 L Vancomycin Pre-Dose 19.216 H* 09/21/17 09:00 WBC RBC Hgb Hct MCV MCH MCHC RDW Plt Count MPV Macrocytosis Sodium Potassium Chloride Carbon Dioxide Anion Gap BUN Creatinine Random Glucose Calcium Phosphorus 2.1 L Magnesium 1.6 L Vancomycin Pre-Dose Vital Signs Temp 98.8 F 09/21/17 14:00 Pulse 70 09/21/17 16:00 Resp 20 09/21/17 16:00 BP 122/61 09/21/17 16:00 Pulse Ox 96 09/21/17 10:05 Intake & Output 09/20/17 09/21/17 09/21/17 23:59 11:59 23:59 Intake Total 1374 454 905 Output Total 600 300 500 Balance 774 154 405 Weight 156 lb 8 oz Intake: IV 774 154 415 D5w - 1,000 ml @ 22 mls/ 110 154 415 hr IV ASDIR [facility] Rx#: [id number] LACTATED RINGERS SOLUTION 664 1,000 ml In 1,000 ml @ 83 mls/hr IV ASDIR [facility] Rx #:[id number] IVPB 600 250 Tube Feeding 240 240 Tube Irrigant 60 Output: Urine 600 300 500 Abernathy 600 300 500 Other: Voiding Method Indwelling Catheter Indwelling Catheter Weight Measurement Method Built in [facility] CC: awake calm & quiet ```````````````````` skin--Rt butt skin opening lungs--bilat rhonchi L>R; unlabored heart--RR abd--soft, BS quiet ext--trace edema neuro--rousable; good eye contact; impoverished cognition ``````````````````````````````````` Impression > Resp failure--2nd asp PNA (as described) SOLUTION STRATEGIST note read; CXR a bit improved, still needs high flow oxygen. PLAN: recheck CXR in AM. > anemia--H/h seems stable; will cut back on fluids. > Diarrhea--has abated, Cdiff negative; keep PRN Imodium. > Asp PNA--with underlying Hx of dysphagia; sputum C&S with gram(+) cocci in clusters MSSA (see ID note); vanco trough high, will adjust. > dementia--with behavior component; has been calm thus far > dysphagia--has NGT; will change to continuous feeds as per RD's recommendations > Low Potassium/Mag--replenish as needed > decub ulcer--Buttock; apply adhesive ````````````````````````````````````````````````````````````````````````````` Family members at bedside every day since admission and are being kept abreast of his condition & plans ~~~~~~~~~~~~~~~~~~~~~~~ Dr Galloway Problem List - Problems (1) Delirium due to another medical condition Code(s): F05 - DELIRIUM DUE TO KNOWN PHYSIOLOGICAL CONDITION (2) Aspiration pneumonia Code(s): J69.0 - PNEUMONITIS DUE TO INHALATION OF FOOD AND VOMIT (3) Acute respiratory failure with hypoxemia Code(s): J96.01 - ACUTE RESPIRATORY FAILURE WITH HYPOXIA (4) Sepsis Code(s): A41.9 - SEPSIS, UNSPECIFIED ORGANISM Qualifiers: (5) Benign hypertensive renal disease Code(s): I12.9 - HYPERTENSIVE CHRONIC KIDNEY DISEASE W STG 1-4/UNSP CHR KDNY (6) CVA (cerebral vascular accident) Code(s): I63.9 - CEREBRAL INFARCTION, UNSPECIFIED Qualifiers: CVA mechanism: unspecified Qualified Code(s): I63.9 - Cerebral infarction, unspecified (7) Dementia with behavioral disturbance Code(s): F03.91 - UNSPECIFIED DEMENTIA WITH BEHAVIORAL DISTURBANCE Qualifiers: Dementia type: vascular dementia Qualified Code(s): F01.51 - Vascular dementia with behavioral disturbance (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
[2017-09-21] MEDS ORDERED: ACETAMINOPHEN 650 MG/20.3 ML ORAL SOLUTION (CUPS) PO PRN (18:14)
[2017-09-21] MEDS ORDERED: ACETAMINOPHEN 325 MG TABLET (FP) ONE (18:17)
[2017-09-21] MEDS: DEXTROSE 5%-WATER - 1,000 ML IV SCH (18:54)
[2017-09-21] MEDS: VANCOMYCIN 750 MG in DEXTROSE 5%-WATER - 250 ML IVPB SCH (21:38)
[2017-09-22 05:53] LABS: BASO % 1.5 % (0-2.0); EOS % 3.7 % (0-4.5); HEMATOCRIT 28.2 % (35.4-49); HEMOGLOBIN 9.9 GM/dL (11.7-16.9); LYMPH % 16.1 % (8-40); MCH 38.7 pg (25.7-33.7); MCHC 35.1 g/dl (32.0-35.9); MEAN CELL VOLUME 110.4 fl (80-96); MEAN PLT VOLUME 7.6 fl (7.5-11.1); MONO % 12.2 % (3.8-10.2); NEUT % 66.5 % (42.8-82.8); PLATELET COUNT 419 K/MM3 (134-434); RBC 2.55 M/mm3 (4.00-5.60); RDW 14.3 % (11.9-15.9); WHITE BLOOD COUNT 8.2 K/mm3 (4.0-10.0)
[2017-09-22 06:19] LABS: ALBUMIN 1.8 g/dl (3.4-5.0); ANION GAP 9 (8-16); BLOOD UREA NITROGEN 9 mg/dL (7-18); CALCIUM 7.8 mg/dL (8.5-10.1); CHLORIDE 98 mmol/L (98-107); CO2 30 mmol/L (21-32); GLUCOSE,RANDOM 82 mg/dL (74-106); MAGNESIUM 2.2 mg/dL (1.8-2.4); POTASSIUM 3.7 mmol/L (3.5-5.1); SODIUM 137 mmol/L (136-145)
[2017-09-22 06:23] LABS: ALK PHOS 57 U/L (45-117); BILIRUBIN,TOTAL 0.4 mg/dL (0.2-1.0); CREATININE 0.5 mg/dL (0.7-1.3); SGOT/AST 21 U/L (15-37); SGPT/ALT 24 U/L (12-78); TOT PROT 5.2 g/dl (6.4-8.2)
[2017-09-22] MEDS ORDERED: PT OWN MED DRAWER 7, Y5N ONE ×2 (06:55→10:00)
[2017-09-22] MEDS ORDERED: ALBUTEROL SO4 0.083% IH SOL 2.5 MG/3 ML VIAL.NEB. NEB ONE (07:52)
--- NOTE | 2017-09-22 07:58 | PN ---
Physical Exam: SUBJECTIVE: Patient seen and examined - reports he has no pain and is breathing well on oxygen but would like to have his NG tube out. Patient has no other complaints. OBJECTIVE: No acute events overnight. Vital Signs Period Temp Pulse Resp BP Sys/Peña Pulse Ox Last 24 Hr 98 F-98.8 F 65-80 16-22 114-147/60-80 96-100 GENERAL: The patient is awake, alert, and fully oriented, in no acute distress. HEAD: Normal with no signs of trauma. EYES: PERRL, extraocular movements intact, sclera anicteric, conjunctiva clear. No ptosis. ENT: Ears normal, nares patent, oropharynx clear without exudates, moist mucous membranes. NECK: Trachea midline, full range of motion, supple. LUNGS: +Diffuse crackles appreciated but grossly improved from yesterday. Patient currently on 50% venti mask as oxygenation decreased while sleeping on nasal cannula trial. HEART: Regular rate and rhythm, S1, S2 without murmur, rub or gallop. ABDOMEN: Soft, nontender, nondistended, normoactive bowel sounds, no guarding, no rebound, no hepatosplenomegaly, no masses. EXTREMITIES: 2+ pulses, warm, well-perfused, no edema. NEUROLOGICAL: Cranial nerves II through XII grossly intact. Normal speech. PSYCH: Normal mood, normal affect. SKIN: Warm, dry, normal turgor, no rashes or lesions noted Laboratory Results - last 24 hr 09/21/17 09/21/17 09/21/17 05:15 09:00 09:00 WBC RBC Hgb Hct MCV MCH MCHC RDW Plt Count MPV Neutrophils % Lymphocytes % Monocytes % Eosinophils % Basophils % Sodium 138 Potassium 4.0 Chloride 101 Carbon Dioxide 29 Anion Gap 8 BUN 8 Creatinine 0.4 L Creat Clearance w eGFR Random Glucose 77 Calcium 7.9 L Phosphorus 2.3 L 2.1 L Magnesium 1.6 L 1.6 L Total Bilirubin AST ALT Alkaline Phosphatase Total Protein Albumin Vancomycin Pre-Dose 19.216 H* 09/22/17 09/22/17 05:25 05:25 WBC 8.2 RBC 2.55 L Hgb 9.9 L Hct 28.2 L MCV 110.4 H MCH 38.7 H MCHC 35.1 RDW 14.3 Plt Count 419 MPV 7.6 Neutrophils % 66.5 Lymphocytes % 16.1 D Monocytes % 12.2 H Eosinophils % 3.7 Basophils % 1.5 Sodium 137 Potassium 3.7 Chloride 98 Carbon Dioxide 30 Anion Gap 9 BUN 9 Creatinine 0.5 L D Creat Clearance w eGFR > 60 Random Glucose 82 Calcium 7.8 L Phosphorus 3.0 D Magnesium 2.2 D Total Bilirubin 0.4 AST 21 D ALT 24 D Alkaline Phosphatase 57 Total Protein 5.2 L Albumin 1.8 L Vancomycin Pre-Dose Active Medications Generic Name Dose Route Start Last Admin Trade Name Freq PRN Reason Stop Dose Admin Acetaminophen 650 mg 09/21/17 18:14 Tylenol Oral Solution - PO Q6H PRN PAIN Acetylcysteine 300 mg 09/17/17 22:00 09/21/17 21:50 Mucomyst 20 Oral / Inh Use Only* NEB 300 mg RTID [facility] Administration Albuterol Sulfate 1 amp 09/17/17 22:00 09/21/17 21:50 Ventolin 0.042trength) - NEB 1 amp RTID [facility] Administration Amino Acids 30 ml 09/21/17 10:00 09/21/17 09:29 Prosource No Carb Liquid Pkt NGT 30 ml DAILY [facility] Administration Enoxaparin Sodium 40 mg 09/21/17 13:15 09/21/17 14:53 Lovenox - SQ 40 mg DAILY [facility] Administration Haloperidol 2.5 mg 09/15/17 22:05 Haldol Injection (Fast Acting) - IM Q6H PRN AGITATION Dextrose 1,000 mls @ 22 mls/hr 09/20/17 17:45 09/21/17 18:54 D5w - IV 22 mls/hr ASDIR [facility] Administration Vancomycin HCl 750 mg/ 250 mls @ 250 mls/hr 09/21/17 22:00 09/21/17 21:38 Dextrose IVPB 250 mls/hr BID [facility] Administration Protocol Loperamide HCl 2 mg 09/19/17 16:18 09/19/17 16:51 Imodium Liquid - NGT 2 mg Q6H PRN Administration DIARRHEA Lorazepam 0.5 mg 09/15/17 22:03 09/20/17 23:35 Ativan Injection - IVPUSH 0.5 mg TID PRN Administration ANXIETY Metoprolol Tartrate 5 mg 09/15/17 22:07 Lopressor Injection - IVPB Q4H PRN HYPERTENSION Pantoprazole Sodium 40 mg 09/16/17 10:00 09/21/17 09:29 Protonix Iv IVPUSH 40 mg DAILY [facility] Administration ASSESSMENT/PLAN: Mr. Kc is a 81 yo male w/ pmh of HTN, multiple CVAs (ischemic), aspiration pneumonia, HLD, dementia, GI Bleed, anxiety, depression, gout, admitted to ICU from SNF for left lower lobe pneumonia after witnessed applesauce aspiration w/ subsequent intubation and qSOFA 3 score. SOB/Aspiration pneumonia - 2ndary to presenting aspiration pneumonia. CXR less congested after 40mg of IV lasix yesterday however left retrocardiac opacity concerning for pleural effusion / compressive atelectasis noted. - Patient transitioned to nasal cannula, currently satting high 90's on 4L. Titrating to SpO2>90%. - Patient receiving inhaled bronchodilators as needed - sputum grew gram(+) cocci in clusters / MSSA. Undergoing treatment w/ vancomycin - defer to ID for continued management. Prophylaxis -SCDs, SQH, replenish electrolytes as needed. -PPI Dysphagia -NGT in place. Feeds TID. -Speech study scheduled for later today to evaluate for starting oral feeds. Disposition -Family at bedside and up to date with status -Patient transferred to med/surg floor for further care. Visit type - Emergency Visit Emergency Visit: Yes ED Registration Date: 09/15/17 Care time: The patient presented to the Emergency Department on the above date and was hospitalized for further evaluation of their emergent condition. - New Patient This patient is new to me today: No - Critical Care Critical Care patient: Yes Total Critical Care Time (in minutes): 40 Critical Care Statement: The care of this patient involved high complexity decision making to prevent further life threatening deterioration of the patient 's condition and/or to evaluate & treat vital organ system(s) failure or risk of failure.
[2017-09-22] MEDS: ACETYLCYSTEINE 20% 200MG/ML 4 ML VIAL *FOR ORAL / INH USE ONLY NEB SCH ×2 (08:14→20:47)
[2017-09-22] MEDS: ALBUTEROL SO4 0.042% IH SOL 1.25 MG/3 ML VIAL.NEB NEB SCH ×2 (08:14→20:47)
--- NOTE | 2017-09-22 08:23 | PN ---
Progress Note (short form) - Note Progress Note: alert he has ngt for feeding reports he swelled up like a balloon when he got penicillin years ago Vital Signs Period Temp Pulse Resp BP Sys/Peña Pulse Ox Last 24 Hr 98 F-98.8 F 65-80 16-22 114-147/60-80 96-100 cor-rrr lungs decreased bs at bases abd soft,nt ext no edema CBC, BMP 09/22/17 05:25 09/22/17 05:25 Microbiology 09/20/17 18:45 Stool Clostridium difficile Antigen (KELSI) - Final 09/20/17 18:45 Stool Clostridium difficile Toxin Assay - Final 09/15/17 17:45 Blood - Peripheral Venous Blood Culture - Final NO GROWTH AFTER 5 DAYS INCUBATION 09/15/17 17:45 Blood - Peripheral Venous Blood Culture - Final NO GROWTH AFTER 5 DAYS INCUBATION 09/16/17 23:00 Sputum - Endotrachea Suction/Ventilator Gram Stain - Final 09/16/17 23:00 Sputum - Endotrachea Suction/Ventilator Sputum Culture - Final Staphylococcus Aureus 09/18/17 18:00 Nasopharyngeal Swab Influenza Types A,B Antigen (KELSI) - Final 09/18/17 18:00 Nasopharyngeal Swab - Final 09/15/17 20:10 Urine - Urine Abernathy Urine Culture - Final NO GROWTH OBTAINED 09/16/17 19:00 Urine For Antigen Detection Legionella Antigen - Final 09/16/17 19:00 Urine For Antigen Detection Streptococcus pneumoniae Antigen (M - Final a/p respiratory failure- extubated, stable probable pneumonia ?aspiration pen allergy-swells up per sputum culture - pure culture MSSA continue vancomycin- day #7 antibiotics- to continue clinically improving vanco trough Problem List - Problems (1) Sepsis Code(s): A41.9 - SEPSIS, UNSPECIFIED ORGANISM Qualifiers: (2) Respiratory failure Code(s): J96.90 - RESPIRATORY FAILURE, UNSP, UNSP W HYPOXIA OR HYPERCAPNIA (3) Pneumonia Code(s): J18.9 - PNEUMONIA, UNSPECIFIED ORGANISM Qualifiers: Pneumonia type: aspiration pneumonia Aspiration pneumonia type: unspecified Laterality: unspecified laterality Lung location: unspecified part of lung Qualified Code(s): J69.0 - Pneumonitis due to inhalation of food and vomit (4) UTI (urinary tract infection) Code(s): N39.0 - URINARY TRACT INFECTION, SITE NOT SPECIFIED (5) Penicillin allergy Code(s): Z88.0 - ALLERGY STATUS TO PENICILLIN
[2017-09-22] MEDS: AMINO ACIDS/PROTEIN HYDROLYS 30 ML LIQUID.PKT NGT SCH ×2 (10:10→18:16)
[2017-09-22] MEDS: VANCOMYCIN 750 MG in DEXTROSE 5%-WATER - 250 ML IVPB SCH (10:10)
[2017-09-22] MEDS: ENOXAPARIN NA (PORCINE) 40 MG/0.4 ML DISP.SYRIN SQ SCH (10:10)
[2017-09-22] MEDS: PANTOPRAZOLE SODIUM 40 MG VIAL IVPUSH SCH (10:10)
--- NOTE | 2017-09-22 11:29 | PN ---
Teaching Attending Note Name of Resident: Dylon Hamilton ATTENDING PHYSICIAN STATEMENT I saw and evaluated the patient. I reviewed the resident's note and discussed the case with the resident. I agree with the resident's findings and plan as documented. SUBJECTIVE: Pt seen and examined in the ICU. More alert today, less short of breath. No fevers recorded. OBJECTIVE: Last Vital Signs Temp Pulse Resp BP Pulse Ox 98.6 F 66 20 127/66 100 09/22/17 10:00 09/22/17 10:00 09/22/17 10:00 09/22/17 10:00 09/22/17 06:00 Intake & Output 09/19/17 09/20/17 09/21/17 09/22/17 22:59 23:59 23:59 23:59 Intake Total 1915 236 Output Total 1999 600 Balance -85 -364 Weight 70.987 kg 70.08 kg Gen: less tachypneic Heart: RRR, +systolic murmur Lung: left sided rhonchi Abd: soft, nontender Ext: no edema CBC, BMP 09/22/17 05:25 09/22/17 05:25 Active Medications Acetaminophen (Tylenol Oral Solution -) 650 mg PO Q6H PRN PRN Reason: PAIN Acetylcysteine (Mucomyst 20 Oral / Inh Use Only*) 300 mg NEB RTID [facility] Last Admin: 09/22/17 08:14 Dose: 300 mg Albuterol Sulfate (Ventolin 0.042trength) -) 1 amp NEB RTID [facility] Last Admin: 09/22/17 08:14 Dose: 1 amp Amino Acids (Prosource No Carb Liquid Pkt) 30 ml NGT DAILY [facility] Last Admin: 09/22/17 10:10 Dose: 30 ml Enoxaparin Sodium (Lovenox -) 40 mg SQ DAILY [facility] Last Admin: 09/22/17 10:10 Dose: 40 mg Haloperidol (Haldol Injection (Fast Acting) -) 2.5 mg IM Q6H PRN PRN Reason: AGITATION Dextrose (D5w -) 1,000 mls @ 22 mls/hr IV ASDIR [facility] Last Admin: 09/21/17 18:54 Dose: 22 mls/hr Vancomycin HCl 750 mg/ (Dextrose) 250 mls @ 250 mls/hr IVPB BID LORENE PRN Reason: Protocol Last Admin: 09/22/17 10:10 Dose: 250 mls/hr Potassium Chloride 10 meq/ (Sodium Chloride) 105 mls @ 100 mls/hr IVPB Q60M [facility] Stop: 09/22/17 12:29 Loperamide HCl (Imodium Liquid -) 2 mg NGT Q6H PRN PRN Reason: DIARRHEA Last Admin: 09/19/17 16:51 Dose: 2 mg Lorazepam (Ativan Injection -) 0.5 mg IVPUSH TID PRN PRN Reason: ANXIETY Last Admin: 09/20/17 23:35 Dose: 0.5 mg Metoprolol Tartrate (Lopressor Injection -) 5 mg IVPB Q4H PRN PRN Reason: HYPERTENSION Pantoprazole Sodium (Protonix Iv) 40 mg IVPUSH DAILY [facility] Last Admin: 09/22/17 10:10 Dose: 40 mg ASSESSMENT AND PLAN: Acute Hypoxic Respiratory Failure MSSA Pneumonia Sepsis resolving Acute Kidney Injury improving Dysphagia - antibiotics per ID - aspiration precautions - inhaled bronchodilators - O2 to keep SpO2 >90% - swallow eval - DVT prophylaxis - can monitor on floor critical care time spent in reviewing chart, evaluating patient and formulating plan 35 min
[2017-09-22] MEDS ORDERED: POTASSIUM CHLORIDE 10 MEQ in SODIUM CHLORIDE 100 ML IVPB SCH (11:30)
--- NOTE | 2017-09-22 14:09 | PN ---
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 Reviewed with pt's who would like MBS deferred until he is stronger. Pt is more alert, and verbal but with impaired word retrieval and functional language/cognition. Dysphonic. Vocal wetness. NGT in place. MBS pending, when appropriate.
--- NOTE | 2017-09-22 14:10 | PN ---
Progress Note (short form) - Note Progress Note: \\\\\\\\\\\\\\\\\ medical note ///////////// Current Medications Acetaminophen (Tylenol Oral Solution -) 650 mg PO Q6H PRN PRN Reason: PAIN Acetylcysteine (Mucomyst 20 Oral / Inh Use Only*) 300 mg NEB RTID [facility] Last Admin: 09/22/17 08:14 Dose: 300 mg Albuterol Sulfate (Ventolin 0.042trength) -) 1 amp NEB RTID [facility] Last Admin: 09/22/17 08:14 Dose: 1 amp Amino Acids (Prosource No Carb Liquid Pkt) 30 ml NGT DAILY [facility] Last Admin: 09/22/17 10:10 Dose: 30 ml Enoxaparin Sodium (Lovenox -) 40 mg SQ DAILY [facility] Last Admin: 09/22/17 10:10 Dose: 40 mg Haloperidol (Haldol Injection (Fast Acting) -) 2.5 mg IM Q6H PRN PRN Reason: AGITATION Dextrose (D5w -) 1,000 mls @ 22 mls/hr IV ASDIR [facility] Last Admin: 09/21/17 18:54 Dose: 22 mls/hr Vancomycin HCl 750 mg/ (Dextrose) 250 mls @ 250 mls/hr IVPB BID [facility] PRN Reason: Protocol Last Admin: 09/22/17 10:10 Dose: 250 mls/hr Loperamide HCl (Imodium Liquid -) 2 mg NGT Q6H PRN PRN Reason: DIARRHEA Last Admin: 09/19/17 16:51 Dose: 2 mg Lorazepam (Ativan Injection -) 0.5 mg IVPUSH TID PRN PRN Reason: ANXIETY Last Admin: 09/20/17 23:35 Dose: 0.5 mg Metoprolol Tartrate (Lopressor Injection -) 5 mg IVPB Q4H PRN PRN Reason: HYPERTENSION Pantoprazole Sodium (Protonix Iv) 40 mg IVPUSH DAILY [facility] Last Admin: 09/22/17 10:10 Dose: 40 mg Laboratory Results - last 24 hr 09/22/17 09/22/17 05:25 05:25 WBC 8.2 RBC 2.55 L Hgb 9.9 L Hct 28.2 L MCV 110.4 H MCH 38.7 H MCHC 35.1 RDW 14.3 Plt Count 419 MPV 7.6 Neutrophils % 66.5 Lymphocytes % 16.1 D Monocytes % 12.2 H Eosinophils % 3.7 Basophils % 1.5 Sodium 137 Potassium 3.7 Chloride 98 Carbon Dioxide 30 Anion Gap 9 BUN 9 Creatinine 0.5 L D Creat Clearance w eGFR > 60 Random Glucose 82 Calcium 7.8 L Phosphorus 3.0 D Magnesium 2.2 D Total Bilirubin 0.4 AST 21 D ALT 24 D Alkaline Phosphatase 57 Total Protein 5.2 L Albumin 1.8 L Vital Signs Temp 98.6 F 09/22/17 10:00 Pulse 81 09/22/17 13:17 Resp 18 09/22/17 13:17 BP 121/68 09/22/17 13:17 Pulse Ox 99 09/22/17 12:22 Intake & Output 09/21/17 09/22/17 09/22/17 23:59 11:59 23:59 Intake Total 1461 236 Output Total 1700 600 Balance -239 -364 Weight 154 lb 8 oz Intake: IV 481 176 D5w - 1,000 ml @ 22 mls/ 481 176 hr IV ASDIR LORENE Rx#: [id number] IVPB 500 0 Tube Feeding 400 40 Tube Irrigant 80 20 Output: Urine 1700 600 [place] 1700 600 Other: Voiding Method Indwelling Catheter Indwelling Catheter Indwelling Catheter Bowel Movement No Yes Weight Measurement Method Built in [facility] CC: awake calm & quiet ```````````````````` lungs--bilat rhonchi L>R; unlabored heart--RR abd--soft, BS quiet neuro--rousable; good eye contact; impoverished cognition ``````````````````````````````````` Impression > Resp failure--resolved; 2nd asp PNA (as described) CXR shows possible effusion ; PLAN: recheck CXR in AM; may need Chest CT. > anemia--H/h seems stable. > Diarrhea--none reported. > Asp PNA--with underlying Hx of dysphagia; sputum C&S with gram(+) cocci in clusters MSSA (see ID note); for MBS once on med surg. > dementia--with behavior component; has been calm thus far > dysphagia--has NGT; will change to continuous feeds as per RD's recommendations > Low Potassium/Mag--replenish as needed > decub ulcer--Buttock; apply adhesive ~~~~~~~~~~~~~~~~~~~~~~~~~~ Dr Galloway Problem List - Problems (1) Delirium due to another medical condition Code(s): F05 - DELIRIUM DUE TO KNOWN PHYSIOLOGICAL CONDITION (2) Aspiration pneumonia Code(s): J69.0 - PNEUMONITIS DUE TO INHALATION OF FOOD AND VOMIT (3) Acute respiratory failure with hypoxemia Code(s): J96.01 - ACUTE RESPIRATORY FAILURE WITH HYPOXIA (4) Sepsis Code(s): A41.9 - SEPSIS, UNSPECIFIED ORGANISM Qualifiers: (5) Benign hypertensive renal disease Code(s): I12.9 - HYPERTENSIVE CHRONIC KIDNEY DISEASE W STG 1-4/UNSP CHR KDNY (6) CVA (cerebral vascular accident) Code(s): I63.9 - CEREBRAL INFARCTION, UNSPECIFIED Qualifiers: CVA mechanism: unspecified Qualified Code(s): I63.9 - Cerebral infarction, unspecified (7) Dementia with behavioral disturbance Code(s): F03.91 - UNSPECIFIED DEMENTIA WITH BEHAVIORAL DISTURBANCE Qualifiers: Dementia type: vascular dementia Qualified Code(s): F01.51 - Vascular dementia with behavioral disturbance (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
[2017-09-22] MEDS ORDERED: DEXTROSE 5%-WATER - 1,000 ML IV SCH (16:03)
[2017-09-22] MEDS ORDERED: LOPERAMIDE HCL 1 MG/5 ML UNIT DOSE CUP NGT PRN (16:03)
[2017-09-22] MEDS ORDERED: METOPROLOL TARTRATE 5 MG/5 ML VIAL IVPB PRN (16:03)
[2017-09-22] MEDS ORDERED: LORazepam 2 MG/ML SDV VIAL IVPUSH PRN (16:03)
[2017-09-22] MEDS ORDERED: HALOPERIDOL LACTATE 5 MG/ML IM PRN (16:03)
[2017-09-22] MEDS ORDERED: ACETAMINOPHEN 650 MG/20.3 ML ORAL SOLUTION (CUPS) PO PRN (16:03)
[2017-09-22] MEDS ORDERED: VANCOMYCIN 750 MG in DEXTROSE 5%-WATER - 250 ML IVPB SCH (22:00)
[2017-09-22] MEDS ORDERED: DEXTROSE 5%-0.45% SALINE 1,000 ML IV SCH (22:15)
[2017-09-23] MEDS: ACETYLCYSTEINE 20% 200MG/ML 4 ML VIAL *FOR ORAL / INH USE ONLY NEB SCH ×3 (07:38→21:30)
[2017-09-23] MEDS: ALBUTEROL SO4 0.042% IH SOL 1.25 MG/3 ML VIAL.NEB NEB SCH ×3 (07:38→21:30)
[2017-09-23 08:06] LABS: ANION GAP 10 (8-16); BLOOD UREA NITROGEN 10 mg/dL (7-18); CALCIUM 7.9 mg/dL (8.5-10.1); CHLORIDE 98 mmol/L (98-107); CO2 30 mmol/L (21-32); CREATININE 0.6 mg/dL (0.7-1.3); GLUCOSE,RANDOM 73 mg/dL (74-106); POTASSIUM 3.4 mmol/L (3.5-5.1); SODIUM 138 mmol/L (136-145)
[2017-09-23] MEDS: AMINO ACIDS/PROTEIN HYDROLYS 30 ML LIQUID.PKT NGT SCH (09:00)
[2017-09-23 11:29] LABS: HEMATOCRIT 29.3 % (35.4-49); HEMOGLOBIN 10.5 GM/dL (11.7-16.9); MCH 39.4 pg (25.7-33.7); MCHC 35.6 g/dl (32.0-35.9); MEAN CELL VOLUME 110.4 fl (80-96); MEAN PLT VOLUME 7.3 fl (7.5-11.1); PLATELET COUNT 397 K/MM3 (134-434); RBC 2.66 M/mm3 (4.00-5.60); RDW 14.4 % (11.9-15.9); WHITE BLOOD COUNT 8.7 K/mm3 (4.0-10.0)
--- NOTE | 2017-09-23 11:42 | PN ---
Progress Note (short form) - Note Progress Note: awake, responsive +cough no NGT Vital Signs Period Temp Pulse Resp BP Sys/Peña Pulse Ox Last 24 Hr 97.9 F-98.4 F 67-82 18-20 121-162/64-91 95-99 cor-rrr lungs bilateral rhonchi abd soft,nt ext trace edema CBC, BMP 09/23/17 06:00 09/23/17 06:00 Microbiology 09/20/17 18:45 Stool Clostridium difficile Antigen (KELSI) - Final 09/20/17 18:45 Stool Clostridium difficile Toxin Assay - Final 09/15/17 17:45 Blood - Peripheral Venous Blood Culture - Final NO GROWTH AFTER 5 DAYS INCUBATION 09/15/17 17:45 Blood - Peripheral Venous Blood Culture - Final NO GROWTH AFTER 5 DAYS INCUBATION 09/16/17 23:00 Sputum - Endotrachea Suction/Ventilator Gram Stain - Final 09/16/17 23:00 Sputum - Endotrachea Suction/Ventilator Sputum Culture - Final Staphylococcus Aureus 09/18/17 18:00 Nasopharyngeal Swab Influenza Types A,B Antigen (KELSI) - Final 09/18/17 18:00 Nasopharyngeal Swab - Final 09/15/17 20:10 Urine - Urine Abernathy Urine Culture - Final NO GROWTH OBTAINED 09/16/17 19:00 Urine For Antigen Detection Legionella Antigen - Final 09/16/17 19:00 Urine For Antigen Detection Streptococcus pneumoniae Antigen (M - Final Active Medications Acetaminophen (Tylenol Oral Solution -) 650 mg PO Q6H PRN PRN Reason: PAIN Acetylcysteine (Mucomyst 20 Oral / Inh Use Only*) 300 mg NEB RTID [facility] Last Admin: 09/23/17 07:38 Dose: 300 mg Albuterol Sulfate (Ventolin 0.042trength) -) 1 amp NEB RTID [facility] Last Admin: 09/23/17 07:38 Dose: 1 amp Amino Acids (Prosource No Carb Liquid Pkt) 30 ml NGT BID@0800,1730 [facility] Last Admin: 09/23/17 09:00 Dose: Not Given Enoxaparin Sodium (Lovenox -) 40 mg SQ DAILY [facility] Haloperidol (Haldol Injection (Fast Acting) -) 2.5 mg IM Q6H PRN PRN Reason: AGITATION Vancomycin HCl 750 mg/ (Dextrose) 250 mls @ 250 mls/hr IVPB BID LORENE PRN Reason: Protocol Dextrose/Sodium Chloride (D5-1/2ns -) 1,000 mls @ 50 mls/hr IV ASDIR [facility] Last Admin: 09/22/17 23:14 Dose: 50 mls/hr Loperamide HCl (Imodium Liquid -) 2 mg NGT Q6H PRN PRN Reason: DIARRHEA Lorazepam (Ativan Injection -) 0.5 mg IVPUSH Q8H PRN PRN Reason: ANXIETY Last Admin: 09/22/17 18:16 Dose: 0.5 mg Metoprolol Tartrate (Lopressor Injection -) 5 mg IVPB Q4H PRN PRN Reason: HYPERTENSION Last Admin: 09/22/17 18:16 Dose: 5 mg Pantoprazole Sodium (Protonix Iv) 40 mg IVPUSH DAILY [facility] a/p respiratory failure- extubated, stable probable pneumonia pen allergy-swells up per sputum culture - pure culture MSSA continue vancomycin- day #8 antibiotics- to continue clinically improving for swallowing evaluation today chest PT if possible incentive spirometry if possible Problem List - Problems (1) Sepsis Code(s): A41.9 - SEPSIS, UNSPECIFIED ORGANISM Qualifiers: (2) Respiratory failure Code(s): J96.90 - RESPIRATORY FAILURE, UNSP, UNSP W HYPOXIA OR HYPERCAPNIA (3) Pneumonia Code(s): J18.9 - PNEUMONIA, UNSPECIFIED ORGANISM Qualifiers: Pneumonia type: aspiration pneumonia Aspiration pneumonia type: unspecified Laterality: unspecified laterality Lung location: unspecified part of lung Qualified Code(s): J69.0 - Pneumonitis due to inhalation of food and vomit (4) UTI (urinary tract infection) Code(s): N39.0 - URINARY TRACT INFECTION, SITE NOT SPECIFIED (5) Penicillin allergy Code(s): Z88.0 - ALLERGY STATUS TO PENICILLIN
[2017-09-23] MEDS: ENOXAPARIN NA (PORCINE) 40 MG/0.4 ML DISP.SYRIN SQ SCH (11:44)
[2017-09-23] MEDS: PANTOPRAZOLE SODIUM 40 MG VIAL IVPUSH SCH (11:50)
--- NOTE | 2017-09-23 14:03 | PN ---
Progress Note (short form) - Note Progress Note: medical Current Medications Acetaminophen (Tylenol Oral Solution -) 650 mg PO Q6H PRN PRN Reason: PAIN Acetylcysteine (Mucomyst 20 Oral / Inh Use Only*) 300 mg NEB RTID [facility] Last Admin: 09/23/17 07:38 Dose: 300 mg Albuterol Sulfate (Ventolin 0.042trength) -) 1 amp NEB RTID [facility] Last Admin: 09/23/17 07:38 Dose: 1 amp Amino Acids (Prosource No Carb Liquid Pkt) 30 ml NGT BID@0800,1730 [facility] Last Admin: 09/23/17 09:00 Dose: Not Given Enoxaparin Sodium (Lovenox -) 40 mg SQ DAILY [facility] Last Admin: 09/23/17 11:44 Dose: 40 mg Haloperidol (Haldol Injection (Fast Acting) -) 2.5 mg IM Q6H PRN PRN Reason: AGITATION Vancomycin HCl 750 mg/ (Dextrose) 250 mls @ 250 mls/hr IVPB BID [facility] PRN Reason: Protocol Dextrose/Sodium Chloride (D5-1/2ns -) 1,000 mls @ 50 mls/hr IV ASDIR [facility] Last Admin: 09/22/17 23:14 Dose: 50 mls/hr Loperamide HCl (Imodium Liquid -) 2 mg NGT Q6H PRN PRN Reason: DIARRHEA Lorazepam (Ativan Injection -) 0.5 mg IVPUSH Q8H PRN PRN Reason: ANXIETY Last Admin: 09/22/17 18:16 Dose: 0.5 mg Metoprolol Tartrate (Lopressor Injection -) 5 mg IVPB Q4H PRN PRN Reason: HYPERTENSION Last Admin: 09/22/17 18:16 Dose: 5 mg Pantoprazole Sodium (Protonix Iv) 40 mg IVPUSH DAILY [facility] Last Admin: 09/23/17 11:50 Dose: 40 mg Laboratory Results - last 24 hr 09/23/17 09/23/17 06:00 06:00 WBC 8.7 RBC 2.66 L Hgb 10.5 L Hct 29.3 L MCV 110.4 H MCH 39.4 H MCHC 35.6 RDW 14.4 Plt Count 397 MPV 7.3 L Sodium 138 Potassium 3.4 L Chloride 98 Carbon Dioxide 30 Anion Gap 10 BUN 10 Creatinine 0.6 L Random Glucose 73 L Calcium 7.9 L Vital Signs Temp 97.7 F 09/23/17 12:01 Pulse 70 09/23/17 12:01 Resp 18 09/23/17 12:01 BP 144/80 09/23/17 12:01 Pulse Ox 95 09/23/17 09:00 Intake & Output 09/22/17 09/23/17 09/23/17 23:59 11:59 23:59 Intake Total 450 Output Total 1000 500 Balance -1000 -50 Intake: IV 200 D5-1/2Ns - 1,000 ml @ 50 200 mls/hr IV ASDIR LORENE Rx#: [id number] IVPB 250 Output: Urine 1000 500 [place]nathy 1000 500 Other: Voiding Method Indwelling Catheter Indwelling Catheter Bowel Movement Yes No CC: awake ```````````````````` lungs--bilat rhonchi L>R; unlabored heart--RR abd--soft, BS quiet neuro--rousable; good eye contact; impoverished cognition ``````````````````````````````````` Impression > Resp failure--resolved; 2nd asp PNA (as described) CXR shows possible effusion ; PLAN: may need Chest CT. > anemia--H/h seems stable. > Diarrhea--none reported. > Asp PNA--with underlying Hx of dysphagia; sputum C&S with gram(+) cocci in clusters MSSA (see ID note); did well with purees; will resume. 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 > Low Potassium/Mag--replenish as needed > decub ulcer--stage 2, Buttock; apply adhesives ~~~~~~~~~~~~~~~~~~~~~~~~~~ Dr Galloway Problem List - Problems (1) Delirium due to another medical condition Code(s): F05 - DELIRIUM DUE TO KNOWN PHYSIOLOGICAL CONDITION (2) Aspiration pneumonia Code(s): J69.0 - PNEUMONITIS DUE TO INHALATION OF FOOD AND VOMIT (3) Acute respiratory failure with hypoxemia Code(s): J96.01 - ACUTE RESPIRATORY FAILURE WITH HYPOXIA (4) Sepsis Code(s): A41.9 - SEPSIS, UNSPECIFIED ORGANISM Qualifiers: (5) Benign hypertensive renal disease Code(s): I12.9 - HYPERTENSIVE CHRONIC KIDNEY DISEASE W STG 1-4/UNSP CHR KDNY (6) CVA (cerebral vascular accident) Code(s): I63.9 - CEREBRAL INFARCTION, UNSPECIFIED Qualifiers: CVA mechanism: unspecified Qualified Code(s): I63.9 - Cerebral infarction, unspecified (7) Dementia with behavioral disturbance Code(s): F03.91 - UNSPECIFIED DEMENTIA WITH BEHAVIORAL DISTURBANCE Qualifiers: Dementia type: vascular dementia Qualified Code(s): F01.51 - Vascular dementia with behavioral disturbance (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
[2017-09-23] MEDS ORDERED: POTASSIUM CHLORIDE ORAL LIQUID 20 MEQ/15 ML PO ONE (14:15)
--- NOTE | 2017-09-23 14:25 | PN ---
Progress Note, Physician History of Present Illness: pulmonary drowsy,-resp distress - Current Medication List Current Medications: Active Medications Acetylcysteine (Mucomyst 20 Oral / Inh Use Only*) 300 mg NEB RTID [facility] Last Admin: 09/23/17 14:01 Dose: 300 mg Albuterol Sulfate (Ventolin 0.042trength) -) 1 amp NEB RTID [facility] Last Admin: 09/23/17 14:01 Dose: 1 amp Enoxaparin Sodium (Lovenox -) 40 mg SQ DAILY [facility] Last Admin: 09/23/17 11:44 Dose: 40 mg Haloperidol (Haldol Injection (Fast Acting) -) 2.5 mg IM Q6H PRN PRN Reason: AGITATION Vancomycin HCl 750 mg/ (Dextrose) 250 mls @ 250 mls/hr IVPB BID [facility] PRN Reason: Protocol Dextrose/Sodium Chloride (D5-1/2ns -) 1,000 mls @ 50 mls/hr IV ASDIR [facility] Last Admin: 09/22/17 23:14 Dose: 50 mls/hr Lorazepam (Ativan Injection -) 0.5 mg IVPUSH Q8H PRN PRN Reason: ANXIETY Last Admin: 09/22/17 18:16 Dose: 0.5 mg Metoprolol Tartrate (Lopressor Injection -) 5 mg IVPB Q4H PRN PRN Reason: HYPERTENSION Last Admin: 09/22/17 18:16 Dose: 5 mg Pantoprazole Sodium (Protonix Iv) 40 mg IVPUSH DAILY [facility] Last Admin: 09/23/17 11:50 Dose: 40 mg - Objective Vital Signs: Vital Signs Temperature 97.7 F 09/23/17 12:01 Pulse Rate 70 09/23/17 12:01 Respiratory Rate 18 09/23/17 12:01 Blood Pressure 144/80 09/23/17 12:01 O2 Sat by Pulse Oximetry (%) 95 09/23/17 09:00 Constitutional: Yes: Well Nourished, Calm Eyes: Yes: WNL HENT: Yes: WNL Neck: Yes: WNL Cardiovascular: Yes: Regular Rate and Rhythm, S1, S2 Respiratory: Yes: Rhonchi (bilateral rhonchi) Gastrointestinal: Yes: Normal Bowel Sounds, Soft Extremities: Yes: WNL Edema: No Labs: CBC, BMP 09/23/17 06:00 09/23/17 06:00 INR, PTT INR 1.20 (0.82-1.09) H 09/18/17 06:05 Problem List - Problems (1) Respiratory failure Code(s): J96.90 - RESPIRATORY FAILURE, UNSP, UNSP W HYPOXIA OR HYPERCAPNIA (2) Sepsis Code(s): A41.9 - SEPSIS, UNSPECIFIED ORGANISM Qualifiers: (3) Acute respiratory failure with hypoxemia Code(s): J96.01 - ACUTE RESPIRATORY FAILURE WITH HYPOXIA (4) Altered mental status Code(s): R41.82 - ALTERED MENTAL STATUS, UNSPECIFIED Qualifiers: Altered mental status type: disorientation Qualified Code(s): R41.0 - Disorientation, unspecified (5) Aspiration pneumonia Code(s): J69.0 - PNEUMONITIS DUE TO INHALATION OF FOOD AND VOMIT (6) Dysphagia as late effect of cerebrovascular disease Code(s): I69.991 - DYSPHAGIA FOLLOWING UNSPECIFIED CEREBROVASCULAR DISEASE (7) HTN (hypertension) Code(s): I10 - ESSENTIAL (PRIMARY) HYPERTENSION Qualifiers: Hypertension type: essential hypertension Qualified Code(s): I10 - Essential (primary) hypertension (8) Pneumonia Code(s): J18.9 - PNEUMONIA, UNSPECIFIED ORGANISM Qualifiers: Pneumonia type: aspiration pneumonia Aspiration pneumonia type: unspecified Laterality: unspecified laterality Lung location: unspecified part of lung Qualified Code(s): J69.0 - Pneumonitis due to inhalation of food and vomit Assessment/Plan ASSESSMENT AND PLAN: Acute Hypoxic Respiratory Failure improving MSSA Pneumonia Sepsis resolving Acute Kidney Injury improving Dysphagia - antibiotics per ID - aspiration precautions - inhaled bronchodilators - O2 to keep SpO2 >90% - swallow eval - DVT prophylaxis DR PRITCHARD
[2017-09-23] MEDS: VANCOMYCIN 750 MG in DEXTROSE 5%-WATER - 250 ML IVPB SCH ×3 (14:57→23:24)
[2017-09-23] MEDS ORDERED: FUROSEMIDE 40 MG/4 ML INJECTABLE VIAL IVPUSH ONE (19:15)
[2017-09-23] MEDS ORDERED: POTASSIUM CHLORIDE TABS 10 MEQ TABLET.ER (FP) PO ONE (19:15)
[2017-09-23] MEDS ORDERED: ALBUTEROL SO4 0.083% IH SOL 2.5 MG/3 ML VIAL.NEB. NEB ONE (20:50)
[2017-09-23] MEDS ORDERED: PT OWN MED DRAWER 7, Y5N ONE (21:41)
[2017-09-24] MEDS: ACETAMINOPHEN 650 MG SUPP.RECT PR PRN (02:28)
[2017-09-24] MEDS ORDERED: ALBUTEROL SO4 0.083% IH SOL 2.5 MG/3 ML VIAL.NEB. NEB ONE (03:32)
--- NOTE | 2017-09-24 03:49 | RAPID ---
Physical Examination Vital Signs: Vital Signs Temperature 100.9 F H 09/24/17 01:29 Pulse Rate 79 09/23/17 20:28 Respiratory Rate 20 09/23/17 20:28 Blood Pressure 138/81 09/23/17 20:28 O2 Sat by Pulse Oximetry (%) 95 09/23/17 09:00 Findings/Remarks: Rapid response called at 3:40am. It was reported that patient was desaturating to the 70s on 5L nasal cannula. On arrival, patient was put on nonrebreather mask and saturating in the mid-80s. Patient was unarousable to stimulation but awoke in response to pain. Patient's saturation improved to the 90s and he was awake/alert. PE GEN: mildly diaphoretic Cards: RRR, loud systolic murmur heard in 2nd R intercostal space Lungs: CTA, no wheezes or crackles heard EXT: mild peripheral edema A/P Aspiration PNA vs cardiac event; patient has clinically improved Stat ABG, CBC, chemistries, lactate, EKG, troponin, CKMB Re-evaluate in the AM Labs: CBC, BMP 09/23/17 06:00 09/23/17 06:00
[2017-09-24 04:21] LABS: ARTERIAL BLD GAS O2 SATURATION 94.5 % (90-98.9); ARTERIAL BLOOD GAS BASE EXCESS 6.6 meq/l (-2-2); ARTERIAL BLOOD GAS PCO2 38.1 mmHg (35-45); ARTERIAL BLOOD GAS PO2 66.3 mmHg (70-100); ARTERIAL BLOOD GAS pH 7.51 (7.35-7.45)
[2017-09-24 04:22] LABS: ALLENS TEST POSITIVE
[2017-09-24 04:48] LABS: BASO % 1.1 % (0-2.0); EOS % 0.2 % (0-4.5); HEMATOCRIT 29.7 % (35.4-49); HEMOGLOBIN 10.4 GM/dL (11.7-16.9); LYMPH % 9.5 % (8-40); MCH 38.2 pg (25.7-33.7); MCHC 34.9 g/dl (32.0-35.9); MEAN CELL VOLUME 109.3 fl (80-96); MONO % 8.8 % (3.8-10.2); NEUT % 80.4 % (42.8-82.8); PLATELET COUNT 371 K/MM3 (134-434); RBC 2.72 M/mm3 (4.00-5.60); RDW 14.3 % (11.9-15.9); WHITE BLOOD COUNT 13.4 K/mm3 (4.0-10.0)
[2017-09-24 05:11] LABS: ANION GAP 11 (8-16); BLOOD UREA NITROGEN 9 mg/dL (7-18); CALCIUM 8.1 mg/dL (8.5-10.1); CHLORIDE 97 mmol/L (98-107); CO2 29 mmol/L (21-32); CREATININE 0.7 mg/dL (0.7-1.3); GLUCOSE,RANDOM 102 mg/dL (74-106); MAGNESIUM 2.1 mg/dL (1.8-2.4); PHOSPHOROUS 3.3 mg/dL (2.5-4.9); POTASSIUM 3.5 mmol/L (3.5-5.1); SODIUM 137 mmol/L (136-145)
[2017-09-24 06:21] LABS: ADD RBC MORPHOLOGY YES
[2017-09-24 06:22] LABS: ANISOCYTOSIS 2+; MACROCYTOSIS 2+
[2017-09-24] MEDS: ACETYLCYSTEINE 20% 200MG/ML 4 ML VIAL *FOR ORAL / INH USE ONLY NEB SCH ×3 (07:35→20:45)
[2017-09-24] MEDS: ALBUTEROL SO4 0.042% IH SOL 1.25 MG/3 ML VIAL.NEB NEB SCH ×3 (07:35→20:45)
[2017-09-24] MEDS ORDERED: AMINO ACIDS 4.25%/D5W 1,000 ML IV SCH (09:30)
[2017-09-24] MEDS: ENOXAPARIN NA (PORCINE) 40 MG/0.4 ML DISP.SYRIN SQ SCH (10:17)
[2017-09-24] MEDS: PANTOPRAZOLE SODIUM 40 MG VIAL IVPUSH SCH (10:17)
[2017-09-24] MEDS: VANCOMYCIN 750 MG in DEXTROSE 5%-WATER - 250 ML IVPB SCH ×2 (10:17→23:02)
--- NOTE | 2017-09-24 10:47 | CON.CARD ---
Consult Consult Specialty:: Cardiology Referred by:: Dr. Galloway Reason for Consultation:: Elevated troponin, sob - History of Present Illness Chief Complaint: Admitted 09/15 with respiratory failure History of Present Illness: 81 year old man with a h/o HTN, HLD, CVA, dementia, h/o aspiration pneumonia admitted 09/15/17 with respiratory failure presumed secondary to aspiration pneumonia, pt was intubated in the ER, treated in the ICU for several days, then transferred to [facility]. Last night pt had acute decompensation with hypoxia, cough, possible recurrence of aspiration. Supplemental O2 was given and pts hypoxia improved. Blood work showed a mildly elevated troponin. Pt was seen and examined today with his at bedside. On review of prior admission pt had an echo 07/2016 which showed based on report likely moderate aortic stenosis with normal LV systolic function. Pt unable to provide a history at this time but states that he has no known h/o cardiac issues including no h /o OR or revascularization. He has not complained of chest pain to her in the past nor during this admission. Pt currently comfortable on partial nonrebreather. as per he has been edematous since admission and still is but it is overall improved. 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 Cardio/Vascular: Yes: Aortic Stenosis, HTN, Hyperlipdemia Pulmonary: Yes: Bronchitis Gastrointestinal: Yes: GI Bleed (History of) Renal/: Yes: Renal Inusuff (mild), UTI Infectious Disease: Yes: Other (UTI; asp PNA) Psych: Yes: Anxiety, Depression, Other (dementia with behavior component) Musculoskeletal: Yes: Other (Gait dysfunction likely 2nd old CVA) Rheumatology: Yes: Gout - Alcohol/Substance Use Hx Alcohol Use: No History of Substance Use: reports: None - Smoking History Smoking history: Unknown if ever smoked Have you smoked in the past 12 months: No Aproximately how many cigarettes per day: 0 - Social History Usual Living Arrangement: Half-Way 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 Home Medications - Allergies Allergies/Adverse Reactions: Allergies Allergy/AdvReac Type Severity Reaction Status Date / Time Penicillins Allergy Mild Nausea Verified 05/13/17 13:08 - Home Medications Home Medications: Ambulatory Orders Allopurinol [Zyloprim -] 300 mg PO DAILY 09/24/14 Atorvastatin Ca [Lipitor] 20 mg PO HS 09/24/14 Pantoprazole Sodium [Protonix -] 40 mg PO DAILY #14 tablet.ec 07/22/16 Aspirin [ASA -] 81 mg PO DAILY 08/02/16 Atenolol [Tenormin] 50 mg PO DAILY 08/02/16 Alprazolam 1 mg PO DAILY PRN #30 tablet MDD 1 01/02/17 Hydroxyurea [Hydrea 500Mg Capsule -] 500 mg PO DAILY #30 cap MDD 1 01/02/17 Docusate Sodium [Colace -] 100 mg PO BID 05/13/17 Haloperidol [Haldol -] 2 mg PO BID 05/13/17 Escitalopram Oxalate [Lexapro -] 20 mg PO DAILY #30 tablet 05/17/17 Foam Bandage [Optifoam] 1 each TP DAILY #30 bandage 05/17/17 Risperidone [Risperdal -] 0.25 mg PO BID #60 tablet 05/17/17 Family Disease History - Family Disease History Family Disease History: Heart Disease: Mother (CHF) Review of Systems - Review of Systems Constitutional: reports: Lethargy, Weakness. denies: No Symptoms, Chills, Diaphoresis, Fever, Loss of Appetite, Malaise, Night Sweats, Unintentional Wgt. Loss, Other Eyes: denies: No Symptoms, Blind Spots, Blurred Vision, Double Vision, Eye Pain , Floaters, Photophobia, Recent Change in Vision, Other HENT: denies: No Symptoms, Difficult Swallowing, Ear Discharge, Ear Pain, Epistaxis, Gingival Bleeding, Hearing Loss, Mouth Swelling, Nasal Congestion, Ocular Prosthesis, Throat Pain, Toothache, Ringing in Ears, Other Neck: denies: No Symptoms, Decreased ROM, Lumps, Pain on Movement, Stiffness, Swollen Glands, Tenderness, Other Cardiovascular: reports: Edema, Shortness of Breath. denies: No Symptoms, Chest Pain, Palpitations, Other Respiratory: reports: Cough, SOB. denies: No Symptoms, Exercise Intolerance, Hemoptysis, Orthopnea, PND, Snoring, SOB on Exertion, Wheezing, Other Gastrointestinal: denies: No Symptoms, Abdominal Pain, Bloating, Constipation, Diarrhea, Dysphagia, Indigestion, Melena, Nausea, Rectal Bleeding, Vomiting, Vomiting Blood, Other Genitourinary: denies: No Symptoms, Burning, Discharge, Dysuria, Flank Pain, Frequency, Hematuria, Incontinence, Lesions, Menses, Pain, Testicular Mass, Testicular Pain, Testicular Swelling, Urgency, Vaginal Bleeding, Other Breasts: denies: No Symptoms Reported, See HPI, Breast Implants, Discharge from Nipple, Lumps, Pain, Skin Changes, Other Musculoskeletal: reports: Muscle Weakness. denies: No Symptoms, Back Pain, Crepitus, Decreased ROM, Extremity Pain, Joint Pain, Joint Swelling, Muscle Pain , Muscle Cramps, Other Integumentary: denies: No Symptoms, Blister, Bruising, Change in Color, Eczema, Erythema, Incision, Lesions, Lump, Pallor, Pruritis, Rash, Wound, Other Neurological: reports: Confusion, Pre-Existing Deficit, Weakness. denies: No Symptoms, Change in LOC, Change in Speech, Dizziness, Headache, Incoordination, Numbness, Parasthesia, Seizure, Syncope, Tremors, Unsteady Gait, Other Endocrine: denies: No Symptoms, Excessive Sweating, Flushing, Increased Hunger, Increased Thirst, Intolerance to Cold, Intolerance to Heat, Unexplained Weight Gain, Unexplained Weight Loss, Other Hematology/Lymphatic: denies: No Symptoms, Easily Bruised, Excessive Bleeding, Swollen Glands, Other Psychiatric: denies: No Symptoms, Altered Sleep Pattern, Anxiety, Depression, Hallucinations, Panic, Paranoia, Suicidal, Other - Risk Factors Known Risk Factors: Yes: Age, Hypertension, Physical Inactivity Vital Signs: Vital Signs Temperature 98.7 F 09/24/17 06:09 Pulse Rate 75 09/24/17 06:09 Respiratory Rate 20 09/24/17 06:09 Blood Pressure 146/74 09/24/17 06:09 O2 Sat by Pulse Oximetry (%) 94 L 09/23/17 21:00 Constitutional: Yes: No Distress, Calm Eyes: Yes: Conjunctiva Clear, EOM Intact, PERRL HENT: Yes: Atraumatic, Normocephalic Neck: Yes: Supple, Trachea Midline Respiratory: Yes: Regular, Diminished, On Venti-Mask, Rhonchi. No: Rales, Wheezes Gastrointestinal: Yes: Normal Bowel Sounds, Soft. No: Distention, Tenderness Cardiovascular: Yes: Regular Rate and Rhythm. No: Bradycardia, Tachycardia, Pulse Irregular, Gallop, Rub, Varicosities JVD: No Carotid Bruit: No PMI: Non-Displaced Heart Sounds: Yes: S1, S2. No: Split S2, S3, S4, Clicks, Gallop, Rub, Bruit Murmur: Yes: Systolic Murmur, Grade 3 Musculoskeletal: Yes: Muscle Weakness Edema: Yes Edema: LUE: Trace, RUE: 1+, LLE: Trace, RLE: Trace Peripheral Pulses: 2+ Left Doralis Pedis, 2+ Right Dorsalis Pedis Neurological: No: Alert, Oriented Psychiatric: No: Alert, Oriented - Other Data Labs, Other Data: CBC, BMP 09/24/17 04:20 09/24/17 04:20 INR, PTT INR 1.20 (0.82-1.09) H 09/18/17 06:05 Troponin, BNP 09/24/17 04:20 Troponin I 0.16 H D Troponin, BNP 09/24/17 04:20 Troponin I 0.16 H D EKG- 09/24 NSR 86bpm, LAD, possible lateral infarct vs LAFB, nonspecific ST abnl , no sig changes from admission EKG Echo: Report Reviewed Imaging - Results Chest X-ray: Report Reviewed, Image Reviewed Cat Scan: Report Reviewed, Image Reviewed EKG: Report Reviewed, Image Reviewed Other: Report Reviewed, Image Reviewed Assessment/Plan 81 year old man with a h/o HTN, HLD, CVA, h/o GI bleed dementia, h/o aspiration pneumonia admitted 09/15/17 with respiratory failure presumed secondary to aspiration pneumonia, pt was intubated in the ER, treated in the ICU for several days, then transferred to [facility]. Last night pt had acute decompensation with hypoxia, cough, possible recurrence of aspiration. Supplemental O2 was given and pts hypoxia improved. Blood work showed a mildly elevated troponin. Pt was seen and examined today with his at bedside. On review of prior admission pt had an echo 07/2016 which showed based on report likely moderate aortic stenosis with normal LV systolic function. Pt unable to provide a history at this time but states that he has no known h/o cardiac issues including no h/o OR or revascularization. He has not complained of chest pain to her in the past nor during this admission. Pt currently comfortable on partial nonrebreather. as per he has been edematous since admission and still is but it is overall improved. Elevated troponin-minimally elevated troponin with normal CK level -acute decompensation last night likely a primary respiratory event with possible recurrent aspiration less likely ACS -etiology of mild troponin elevation likely due to demand ischemia in setting of hypoxia superimposed on likely underlying CAD (based on chest CT) and known at least moderate Aortic stenosis -EKG showed no significant change from admission ekg -pt condition improved with supplemental O2 -Trend cardiac enzymes, 2nd set due at 12pm -repeat Echo (last done 07/2016) to re-evaluate degree of Aortic stenosis and LV function -cont IV bblocker for now until tolerates po then can transition to po -does not require full dose AC at this time (for the purpose of ACS) -need to clarify h/o GI bleed to determine if ASA therapy is safe to start, if so would start ASA 81mg daily -start statin once tolerates po meds Aortic stenosis -echo from 07/2017, degree of Aortic stenosis not reported however the Peak and mean gradient and calculated MORENITA c/w Moderate borderline severe -repeat echo today to re-evaluate degree of -pt unlikely to be a candidate for AVR including TAVR but would depend on his baseline condition SOB/Cough/resp failure -intubated on admission for resp failure, now on med surg floor with decompensation overnight, currently comfortable with partial non-rebreather -likely due to aspiration/pna with atelectesis secondary to pleural effusion -component of Hypoalbuminemia leading to third spacing and peripheral edema in addition to pleural effusion -Possible degree of Diastolic/Valvular CHF although not clear at this time -would not diurese at this point but can use Lasix prn -Pulmonary following
--- NOTE | 2017-09-24 11:29 | PN ---
Progress Note (short form) - Note Progress Note: Lethargic with a congested cough on VMO2. 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 CT: LLL consolidation and atelectasis. minimal RLL consolidation/infiltrate Intake & Output 09/21/17 09/22/17 09/23/17 09/24/17 23:59 23:59 23:59 23:59 Intake Total 2241 574 1448 Output Total 1999 1600 1700 Balance -85 -1364 -700 Weight 156 lb 8 oz 154 lb 8 oz Last Vital Signs Temp Pulse Resp BP Pulse Ox 97.8 F 76 20 128/67 95 09/24/17 09:00 09/24/17 09:00 09/24/17 09:00 09/24/17 09:00 09/24/17 09:00 Active Medications Acetaminophen (Tylenol Suppository -) 650 mg NM Q6H PRN PRN Reason: FEVER Last Admin: 09/24/17 02:28 Dose: 650 mg Acetylcysteine (Mucomyst 20 Oral / Inh Use Only*) 300 mg NEB RTID LORENE Last Admin: 09/24/17 07:35 Dose: 300 mg Albuterol Sulfate (Ventolin 0.042trength) -) 1 amp NEB RTID LORENE Last Admin: 09/24/17 07:35 Dose: 1 amp Enoxaparin Sodium (Lovenox -) 40 mg SQ DAILY LORENE Last Admin: 09/24/17 10:17 Dose: 40 mg Haloperidol (Haldol Injection (Fast Acting) -) 2.5 mg IM Q6H PRN PRN Reason: AGITATION Vancomycin HCl 750 mg/ (Dextrose) 250 mls @ 250 mls/hr IVPB BID LORENE PRN Reason: Protocol Last Admin: 09/24/17 10:17 Dose: 250 mls/hr Metronidazole (Flagyl 500mg Premixed Ivpb -) 500 mg in 100 mls @ 100 mls/hr IVPB Q8H-IV LORENE Last Admin: 09/24/17 10:17 Dose: 100 mls/hr Amino Acids (Clinimix -) 1,000 mls @ 22 mls/hr IV Q12H LORENE Lorazepam (Ativan Injection -) 0.5 mg IVPUSH Q8H PRN PRN Reason: ANXIETY Last Admin: 09/22/17 18:16 Dose: 0.5 mg Metoprolol Tartrate (Lopressor Injection -) 5 mg IVPB Q4H PRN PRN Reason: HYPERTENSION Last Admin: 09/22/17 18:16 Dose: 5 mg Pantoprazole Sodium (Protonix Iv) 40 mg IVPUSH DAILY LORENE Last Admin: 09/24/17 10:17 Dose: 40 mg Constitutional: Yes: Lethargic, mildly tachypneic on VM O2 Eyes: Yes: WNL HENT: Yes: dry membranes Neck: Yes: WNL Cardiovascular: Yes: Regular Rate and Rhythm, S1, S2 Respiratory: Yes: bibasilar coarse Rhonchi Left > Right Gastrointestinal: Yes: Normal Bowel Sounds, Soft Extremities: Yes: WNL Edema: No Labs: Laboratory Results - last 24 hr 09/23/17 09/24/17 09/24/17 06:00 03:41 03:55 WBC 8.7 RBC 2.66 L Hgb 10.5 L Hct 29.3 L MCV 110.4 H MCH 39.4 H MCHC 35.6 RDW 14.4 Plt Count 397 MPV 7.3 L Neutrophils % Lymphocytes % Monocytes % Eosinophils % Basophils % Hypochromia Anisocytosis Macrocytosis Anticoagulation Therapy No Result Required. Puncture Site Right radial ABG pH 7.51 H ABG pCO2 at Pt Temp 38.1 ABG pO2 at Pt Temp 66.3 L D ABG HCO3 29.9 H ABG O2 Sat (Measured) 94.5 ABG O2 Content 11.0 L ABG Base Excess 6.6 H Markie Test Positive O2 Delivery Device [id number] Oxygen Flow Rate Yes Vent Mode No Result Required. Vent Rate No Result Required. Mechanical Rate No Result Required. Pressure Support Vent No Result Required. Sodium Potassium Chloride Carbon Dioxide Anion Gap BUN Creatinine POC Glucometer 114 Random Glucose Lactic Acid Calcium Phosphorus Magnesium Creatine Kinase Troponin I 09/24/17 09/24/17 09/24/17 04:20 04:20 04:20 WBC 13.4 H D RBC 2.72 L Hgb 10.4 L Hct 29.7 L MCV 109.3 H MCH 38.2 H MCHC 34.9 RDW 14.3 Plt Count 371 MPV 8.0 Neutrophils % 80.4 D Lymphocytes % 9.5 D Monocytes % 8.8 Eosinophils % 0.2 D Basophils % 1.1 Hypochromia 1+ Anisocytosis 2+ Macrocytosis 2+ Anticoagulation Therapy Puncture Site ABG pH ABG pCO2 at Pt Temp ABG pO2 at Pt Temp ABG HCO3 ABG O2 Sat (Measured) ABG O2 Content ABG Base Excess Markie Test O2 Delivery Device Oxygen Flow Rate Vent Mode Vent Rate Mechanical Rate Pressure Support Vent Sodium 137 Potassium 3.5 Chloride 97 L Carbon Dioxide 29 Anion Gap 11 BUN 9 Creatinine 0.7 POC Glucometer Random Glucose 102 D Lactic Acid 1.2 Calcium 8.1 L Phosphorus 3.3 Magnesium 2.1 Creatine Kinase 49 Troponin I 0.16 H D Problem List - Problems (1) Respiratory failure Code(s): J96.90 - RESPIRATORY FAILURE, UNSP, UNSP W HYPOXIA OR HYPERCAPNIA (2) Sepsis Code(s): A41.9 - SEPSIS, UNSPECIFIED ORGANISM Qualifiers: (3) Acute respiratory failure with hypoxemia Code(s): J96.01 - ACUTE RESPIRATORY FAILURE WITH HYPOXIA (4) Altered mental status Code(s): R41.82 - ALTERED MENTAL STATUS, UNSPECIFIED Qualifiers: Altered mental status type: disorientation Qualified Code(s): R41.0 - Disorientation, unspecified (5) Aspiration pneumonia Code(s): J69.0 - PNEUMONITIS DUE TO INHALATION OF FOOD AND VOMIT (6) Dysphagia as late effect of cerebrovascular disease Code(s): I69.991 - DYSPHAGIA FOLLOWING UNSPECIFIED CEREBROVASCULAR DISEASE (7) HTN (hypertension) Code(s): I10 - ESSENTIAL (PRIMARY) HYPERTENSION Qualifiers: Hypertension type: essential hypertension Qualified Code(s): I10 - Essential (primary) hypertension (8) Pneumonia Code(s): J18.9 - PNEUMONIA, UNSPECIFIED ORGANISM Qualifiers: Pneumonia type: aspiration pneumonia Aspiration pneumonia type: unspecified Laterality: unspecified laterality Lung location: unspecified part of lung Qualified Code(s): J69.0 - Pneumonitis due to inhalation of food and vomit Assessment/Plan ASSESSMENT AND PLAN: Acute Hypoxic Respiratory Failure improving MSSA Pneumonia Sepsis resolving Acute Kidney Injury improving Dysphagia (?) New aspiration episode - antibiotics per ID (may need to broaden if WBC continues to rise or respiratory status worsens) - aspiration precautions - inhaled bronchodilators - O2 to keep SpO2 >90% - Chest PT - DVT prophylaxis - Check AM CXR Dr Brooks
--- NOTE | 2017-09-24 12:34 | PN ---
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 Nursing documented that he was not able to eat much dinner time as he was "coughing too much." Rapid Response at 340 am. Now NPO. Selected Entries 09/23/17 09/23/17 09/23/17 01:00 06:41 12:01 Temperature 98.4 F 97.9 F 97.7 F 09/23/17 09/23/17 09/23/17 14:19 18:22 20:28 Temperature 97.9 F 98.6 F 99.5 F 09/24/17 09/24/17 09/24/17 01:29 06:09 09:00 Temperature 100.9 F H 98.7 F 97.8 F Laboratory Tests 09/23/17 09/24/17 06:00 04:20 WBC 8.7 13.4 H D WBC elevated. Mr Courtney did not penetrate or aspirate during mbs. However, there are many factor that can facilitate aspiration such as distractibility with delayed or absent swallow, bolus size, rate, HOB positioning, etc. Per pt's , pt was coughing and congested all day yesterday. Pt "only given 1 /2 tsp of pudding but didnt even swallow it" because he was congested and coughing. She reports he was suctioned down in ICU, but since he is more awake, he can not be suctioned and refuses it. IMP: Aspiration on secretions is suspected. Plan for nutrition? Pt's wishes? Pt is a full code at this time. Reviewed with pt's options for PEG for total intake of nutrition/hydration/meds vs to supplement PO when he is stronger. She was told that a PEG will not stop him from aspirating secretions and he is at risk of aspirating TF as well. She also said that she wants him resuscitated but may not want him on a vent? trach LT if that occurred. She would like her to make these decisions. I advised her to talk with Dr. Galloway regarding her wishes.
[2017-09-24 14:14] LABS: N-TERMINAL BNP 3276.91 pg/ml (5-450)
[2017-09-24] MEDS ORDERED: DEXTROSE 5%-LACTATED RINGERS 1,000 ML IV SCH (14:15)
--- NOTE | 2017-09-24 14:25 | PN ---
Progress Note (short form) - Note Progress Note: ID Vancomycin metronidazole ( added) Selected Entries 09/24/17 14:04 Temperature 98.6 F Pulse Rate 84 Respiratory 20 Rate Blood Pressure 126/67 Laboratory Tests 09/24/17 04:20 WBC 13.4 H D Hgb 10.4 L Assessment Recurrent aspirations Antibiotic allergies Functional status poor Plan Discussed with Dr Deleon I would favor stopping all antibiotics with comfort care as antibiotics are not going to significantly alter the poor functional status and risk of recurrent aspiration Ritu ÁLVAREZ
--- NOTE | 2017-09-24 14:32 | PN ---
Progress Note (short form) - Note Progress Note: medical Current Medications Acetaminophen (Tylenol Suppository -) 650 mg DE Q6H PRN PRN Reason: FEVER Last Admin: 09/24/17 02:28 Dose: 650 mg Acetylcysteine (Mucomyst 20 Oral / Inh Use Only*) 300 mg NEB RTID LORENE Last Admin: 09/24/17 07:35 Dose: 300 mg Albuterol Sulfate (Ventolin 0.042trength) -) 1 amp NEB RTID LORENE Last Admin: 09/24/17 07:35 Dose: 1 amp Enoxaparin Sodium (Lovenox -) 40 mg SQ DAILY LORENE Last Admin: 09/24/17 10:17 Dose: 40 mg Haloperidol (Haldol Injection (Fast Acting) -) 2.5 mg IM Q6H PRN PRN Reason: AGITATION Vancomycin HCl 750 mg/ (Dextrose) 250 mls @ 250 mls/hr IVPB BID LORENE PRN Reason: Protocol Last Admin: 09/24/17 10:17 Dose: 250 mls/hr Metronidazole (Flagyl 500mg Premixed Ivpb -) 500 mg in 100 mls @ 100 mls/hr IVPB Q8H-IV LORENE Last Admin: 09/24/17 10:17 Dose: 100 mls/hr Dextrose/Lactated Ringer's (D5-Lr -) 1,000 mls @ 42 mls/hr IV ASDIR LORENE Lorazepam (Ativan Injection -) 0.5 mg IVPUSH Q8H PRN PRN Reason: ANXIETY Last Admin: 09/22/17 18:16 Dose: 0.5 mg Metoprolol Tartrate (Lopressor Injection -) 5 mg IVPB Q4H PRN PRN Reason: HYPERTENSION Last Admin: 09/22/17 18:16 Dose: 5 mg Pantoprazole Sodium (Protonix Iv) 40 mg IVPUSH DAILY [facility] Last Admin: 09/24/17 10:17 Dose: 40 mg Laboratory Results - last 24 hr 09/24/17 09/24/17 09/24/17 03:41 03:55 04:20 WBC 13.4 H D RBC 2.72 L Hgb 10.4 L Hct 29.7 L MCV 109.3 H MCH 38.2 H MCHC 34.9 RDW 14.3 Plt Count 371 MPV 8.0 Neutrophils % 80.4 D Lymphocytes % 9.5 D Monocytes % 8.8 Eosinophils % 0.2 D Basophils % 1.1 Hypochromia 1+ Anisocytosis 2+ Macrocytosis 2+ Anticoagulation Therapy No Result Required. Puncture Site Right radial ABG pH 7.51 H ABG pCO2 at Pt Temp 38.1 ABG pO2 at Pt Temp 66.3 L D ABG HCO3 29.9 H ABG O2 Sat (Measured) 94.5 ABG O2 Content 11.0 L ABG Base Excess 6.6 H Markie Test Positive O2 Delivery Device [id number] Oxygen Flow Rate Yes Vent Mode No Result Required. Vent Rate No Result Required. Mechanical Rate No Result Required. Pressure Support Vent No Result Required. Sodium Potassium Chloride Carbon Dioxide Anion Gap BUN Creatinine POC Glucometer 114 Random Glucose Lactic Acid Calcium Phosphorus Magnesium Creatine Kinase Troponin I B-Natriuretic Peptide 09/24/17 09/24/17 09/24/17 04:20 04:20 13:14 WBC RBC Hgb Hct MCV MCH MCHC RDW Plt Count MPV Neutrophils % Lymphocytes % Monocytes % Eosinophils % Basophils % Hypochromia Anisocytosis Macrocytosis Anticoagulation Therapy Puncture Site ABG pH ABG pCO2 at Pt Temp ABG pO2 at Pt Temp ABG HCO3 ABG O2 Sat (Measured) ABG O2 Content ABG Base Excess Markie Test O2 Delivery Device Oxygen Flow Rate Vent Mode Vent Rate Mechanical Rate Pressure Support Vent Sodium 137 Potassium 3.5 Chloride 97 L Carbon Dioxide 29 Anion Gap 11 BUN 9 Creatinine 0.7 POC Glucometer Random Glucose 102 D Lactic Acid 1.2 Calcium 8.1 L Phosphorus 3.3 Magnesium 2.1 Creatine Kinase 49 Troponin I 0.16 H D B-Natriuretic Peptide Cancelled Vital Signs Temp 98.6 F 09/24/17 14:04 Pulse 84 09/24/17 14:04 Resp 20 09/24/17 14:04 BP 126/67 09/24/17 14:04 Pulse Ox 95 09/24/17 09:00 Intake & Output 09/23/17 09/24/17 09/24/17 23:59 11:59 23:59 Intake Total 550 Output Total 1200 200 Balance -650 -200 Intake: IV 550 D5-1/2Ns - 1,000 ml @ 50 550 mls/hr IV ASDIR LORENE Rx#: [id number] Output: Urine 1200 200 [place] 1200 200 Other: Voiding Method Indwelling Catheter Indwelling Catheter Bowel Movement Yes # Bowel Movements 1 CC: [email or web address] ```````````````````` lungs--bilat rhonchi L>R; unlabored heart--RR w M abd--soft, BS quiet neuro--awake, listless impoverished cognition ``````````````````````````````````` Impression > Resp failure--reprisal of resp distress overnight; with o2 desat likely 2nd new aspiration event; chest CT shows multiple areas of consolidation and secretion build up that he himself cannot mobilize. He is now back on high flow oxygen and being kept NPO. The overal prognosis is now unfavorable given the extensive abnormalities on the CT; and his preponderance to aspirate on his own secretions. I have discussed the crux of the problem with his ; and informed her that this cannot be prevented even by placing a feeding tube. She will confer with family to see what they wish to do. PLAN: cont current Tx. > (+)troponin--amid his acute resp distress/hypoxic event. EKG essentially unchanged; await 2nd TNI; discussed with Cardio who felt this was 2nd hypoxic event alone. Will try to place into Tele Unit; discussed with admitting who has stated that there are "No available beds at present". VSS thus far. > anemia--H/h seems stable. > Asp PNA--chronic & recurrent (see above note) with extensive consolidation of various areas of the lung: PLAN NPO for now; IV nurishment only. > dementia--with behavior component; has been calm thus far > dysphagia--see BIOINFORMATICIAN note > Low Potassium/Mag--replenish as needed > decub ulcer--stage 2, Buttock; apply adhesives ~~~~~~~~~~~~~~~~~~~~~~~~~~ Dr Galloway Problem List - Problems (1) Delirium due to another medical condition Code(s): F05 - DELIRIUM DUE TO KNOWN PHYSIOLOGICAL CONDITION (2) Aspiration pneumonia Code(s): J69.0 - PNEUMONITIS DUE TO INHALATION OF FOOD AND VOMIT (3) Acute respiratory failure with hypoxemia Code(s): J96.01 - ACUTE RESPIRATORY FAILURE WITH HYPOXIA (4) Sepsis Code(s): A41.9 - SEPSIS, UNSPECIFIED ORGANISM Qualifiers: (5) Benign hypertensive renal disease Code(s): I12.9 - HYPERTENSIVE CHRONIC KIDNEY DISEASE W STG 1-4/UNSP CHR KDNY (6) CVA (cerebral vascular accident) Code(s): I63.9 - CEREBRAL INFARCTION, UNSPECIFIED Qualifiers: CVA mechanism: unspecified Qualified Code(s): I63.9 - Cerebral infarction, unspecified (7) Dementia with behavioral disturbance Code(s): F03.91 - UNSPECIFIED DEMENTIA WITH BEHAVIORAL DISTURBANCE Qualifiers: Dementia type: vascular dementia Qualified Code(s): F01.51 - Vascular dementia with behavioral disturbance (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
[2017-09-24] MEDS: AA 2.75 %/CALCIUM/LYTES/D7.5W 1,000 ML IVPB SCH (15:26)
[2017-09-24] MEDS: SCOPOLAMINE HYDROBROMIDE 1 PATCH PATCH.TD72 TD SCH (15:58)
--- NOTE | 2017-09-24 16:35 | EKG ---
Test Reason : Blood Pressure : / mmHG Vent. Rate : 086 BPM Atrial Rate : 086 BPM P-R Int : 154 ms QRS Dur : 096 ms QT Int : 418 ms P-R-T Axes : 011 -33 034 degrees QTc Int : 500 ms NORMAL SINUS RHYTHM LEFT AXIS DEVIATION POSSIBLE LATERAL INFARCT , AGE UNDETERMINED PROLONGED QT ABNORMAL ECG WHEN COMPARED WITH ECG OF 15-SEP-2017 18:54, T WAVE INVERSION NO LONGER EVIDENT IN LATERAL LEADS QT HAS LENGTHENED Confirmed by CARLOS FITZGERALD MD ([id number]) on 09/24/2017 4:35:00 PM Referred By: Confirmed By:CARLOS FITZGERALD MD
[2017-09-25] MEDS: ACETAMINOPHEN 650 MG SUPP.RECT PR PRN (04:32)
[2017-09-25 07:01] LABS: HEMATOCRIT 28.4 % (35.4-49); HEMOGLOBIN 9.8 GM/dL (11.7-16.9); MCH 37.9 pg (25.7-33.7); MCHC 34.5 g/dl (32.0-35.9); MEAN CELL VOLUME 109.9 fl (80-96); MEAN PLT VOLUME 7.7 fl (7.5-11.1); PLATELET COUNT 423 K/MM3 (134-434); RBC 2.59 M/mm3 (4.00-5.60); RDW 14.2 % (11.9-15.9); WHITE BLOOD COUNT 8.6 K/mm3 (4.0-10.0)
[2017-09-25 07:07] LABS: ANION GAP 12 (8-16); BLOOD UREA NITROGEN 13 mg/dL (7-18); CALCIUM 8.3 mg/dL (8.5-10.1); CHLORIDE 99 mmol/L (98-107); CO2 29 mmol/L (21-32); GLUCOSE,RANDOM 91 mg/dL (74-106); PHOSPHOROUS 3.9 mg/dL (2.5-4.9); POTASSIUM 3.4 mmol/L (3.5-5.1); SODIUM 140 mmol/L (136-145)
[2017-09-25] MEDS ORDERED: ALBUTEROL SO4 0.083% IH SOL 2.5 MG/3 ML VIAL.NEB. NEB ONE ×2 (07:29→13:46)
[2017-09-25] MEDS: ACETYLCYSTEINE 20% 200MG/ML 4 ML VIAL *FOR ORAL / INH USE ONLY NEB SCH ×3 (07:40→20:41)
[2017-09-25] MEDS: ALBUTEROL SO4 0.042% IH SOL 1.25 MG/3 ML VIAL.NEB NEB SCH ×3 (07:40→20:42)
--- NOTE | 2017-09-25 09:26 | PN ---
Progress Note, Physician Chief Complaint: Basically non-verbal Denies chest pain Overall TnI trend flat CPK all normal. History of Present Illness: BP stable, normal - Current Medication List Current Medications: Active Medications Acetaminophen (Tylenol Suppository -) 650 mg AR Q6H PRN PRN Reason: FEVER Last Admin: 09/25/17 04:32 Dose: 650 mg Acetylcysteine (Mucomyst 20 Oral / Inh Use Only*) 300 mg NEB RTID [facility] Last Admin: 09/25/17 07:40 Dose: 300 mg Albuterol Sulfate (Ventolin 0.042trength) -) 1 amp NEB RTID [facility] Last Admin: 09/25/17 07:40 Dose: 1 amp Enoxaparin Sodium (Lovenox -) 40 mg SQ DAILY [facility] Last Admin: 09/24/17 10:17 Dose: 40 mg Haloperidol (Haldol Injection (Fast Acting) -) 2.5 mg IM Q6H PRN PRN Reason: AGITATION Metronidazole (Flagyl 500mg Premixed Ivpb -) 500 mg in 100 mls @ 100 mls/hr IVPB Q8H-IV [facility] Last Admin: 09/25/17 02:32 Dose: 100 mls/hr AA 2.75 %/CALCIUM/LYTES/D7.5W (Clinimix 2.75%-7.5% Solution) 1,000 mls @ 25 mls /hr IVPB DAILY [facility] Last Admin: 09/24/17 15:26 Dose: 25 mls/hr Lorazepam (Ativan Injection -) 0.5 mg IVPUSH Q8H PRN PRN Reason: ANXIETY Last Admin: 09/22/17 18:16 Dose: 0.5 mg Metoprolol Tartrate (Lopressor Injection -) 5 mg IVPB Q4H PRN PRN Reason: HYPERTENSION Last Admin: 09/22/17 18:16 Dose: 5 mg Pantoprazole Sodium (Protonix Iv) 40 mg IVPUSH DAILY [facility] Last Admin: 09/24/17 10:17 Dose: 40 mg Scopolamine HBr (Transderm-Scop -) 1 patch TD Q72H [facility] Last Admin: 09/24/17 15:58 Dose: 1 patch - Objective Vital Signs: Vital Signs Temperature 98.5 F 09/25/17 06:20 Pulse Rate 74 09/25/17 06:20 Respiratory Rate 20 09/25/17 06:20 Blood Pressure 141/75 09/25/17 06:20 O2 Sat by Pulse Oximetry (%) 99 09/24/17 21:00 Constitutional: Yes: No Distress Cardiovascular: Yes: Regular Rate and Rhythm Respiratory: Yes: Other (rhonchi and coarse breath sounds b/l) Gastrointestinal: Yes: Soft Edema: No Labs: CBC, BMP 09/25/17 05:30 09/25/17 05:30 INR, PTT INR 1.20 (0.82-1.09) H 09/18/17 06:05 Microbiology 09/16/17 23:00 Sputum - Endotrachea Suction/Ventilator Gram Stain - Final 09/16/17 23:00 Sputum - Endotrachea Suction/Ventilator Sputum Culture - Final Staphylococcus Aureus Laboratory Tests 09/24/17 09/24/17 09/24/17 03:55 04:20 13:14 WBC Hgb Plt Count ABG pH 7.51 H ABG pCO2 at Pt Temp 38.1 ABG pO2 at Pt Temp 66.3 L D Sodium Potassium Creatinine Creatine Kinase 49 46 Creatine Kinase Index Troponin I 0.16 H D 0.16 H 09/25/17 09/25/17 09/25/17 05:30 05:30 05:30 WBC 8.6 D Hgb 9.8 L Plt Count 423 ABG pH ABG pCO2 at Pt Temp ABG pO2 at Pt Temp Sodium 140 Potassium 3.4 L Creatinine 1.0 D Creatine Kinase 151 Creatine Kinase Index 3.4 Troponin I 0.18 H Assessment/Plan 81 year old man with a h/o HTN, HLD, CVA, h/o GI bleed dementia, h/o aspiration pneumonia admitted 09/15/17 with respiratory failure presumed secondary to aspiration pneumonia, pt was intubated in the ER, treated in the ICU for several days, then transferred to [facility] surg. Then had acute decompensation with hypoxia, cough, possible recurrence of aspiration. Supplemental O2 was given and pts hypoxia improved. Blood work showed a mildly elevated troponin. On review of prior admission pt had an echo 07/2016 which showed based on report likely moderate aortic stenosis with normal LV systolic function. Pt unable to provide a history at this time but states that he has no known h/o cardiac issues including no h/o HI or revascularization. He has not complained of chest pain to her in the past nor during this admission. He continues to deny chest pain/ Elevated troponin-minimally elevated troponin with normal CK level -acute decompensation last night likely a primary respiratory event with possible recurrent aspiration less likely ACS -etiology of mild troponin elevation likely due to demand ischemia in setting of hypoxia superimposed on likely underlying CAD (based on chest CT) and known at least moderate Aortic stenosis -EKG showed no significant change from admission ekg -Cardiac enzyme trend is flat, supporting above -repeat echo, moderate -cont IV bblocker for now until tolerates po then can transition to po -does not require full dose AC at this time (for the purpose of ACS) -need to clarify h/o GI bleed to determine if ASA therapy is safe to start, if so would start ASA 81mg daily -start statin once tolerates po meds Aortic stenosis -moderate -serial echo f/u SOB/Cough/resp failure -likely due to aspiration/pna ( see CT Chest report) with atelectesis secondary to pleural effusion -component of Hypoalbuminemia leading to third spacing and peripheral edema in addition to pleural effusion -Possible degree of Diastolic/Valvular CHF -would not diurese at this point but can use Lasix prn IF shows clear evidence of volume overload -Pulmonary following
[2017-09-25] MEDS: ENOXAPARIN NA (PORCINE) 40 MG/0.4 ML DISP.SYRIN SQ SCH (10:07)
[2017-09-25] MEDS: PANTOPRAZOLE SODIUM 40 MG VIAL IVPUSH SCH (10:07)
--- NOTE | 2017-09-25 12:37 | PN ---
Progress Note (short form) - Note Progress Note: PULMONARY NONVERBAL APPEARS ACUTE ON CHRONICALLY ILL REMAINS NPO FAMILY TO DECIDE ON GOALS OF CARE REMAINS ON ANTIBIOTICS PALE/ANICTERIC SCATTERED RHONCHI B/L S1S2 DISTANT BS+ SCD'S HEEL OFFLOADERS LABS/MEDS/NOTES REVIEWED ACUTE HYPOXIC RESP FAILURE MSSA PNA SEPSIS ANSELMO ABS/O2/BD/CHEST PT GOALS OF CARE TO BE DETERMINED POOR PROGNOSIS Micah MCCORMICK MD
[2017-09-25] MEDS ORDERED: POTASSIUM CHLORIDE 10 MEQ in SODIUM CHLORIDE 100 ML IVPB SCH (12:45)
[2017-09-25] MEDS: AA 2.75 %/CALCIUM/LYTES/D7.5W 1,000 ML IVPB SCH (14:16)
--- NOTE | 2017-09-25 16:34 | PN ---
Progress Note (short form) - Note Progress Note: ^^^^^^^^ medical ^^^^^^^^ Current Medications Acetaminophen (Tylenol Suppository -) 650 mg AK Q6H PRN PRN Reason: FEVER Last Admin: 09/25/17 04:32 Dose: 650 mg Acetylcysteine (Mucomyst 20 Oral / Inh Use Only*) 300 mg NEB RTID [facility] Last Admin: 09/25/17 13:45 Dose: 300 mg Albuterol Sulfate (Ventolin 0.042trength) -) 1 amp NEB RTID [facility] Last Admin: 09/25/17 13:45 Dose: 1 amp Enoxaparin Sodium (Lovenox -) 40 mg SQ DAILY [facility] Last Admin: 09/25/17 10:07 Dose: 40 mg Haloperidol (Haldol Injection (Fast Acting) -) 2.5 mg IM Q6H PRN PRN Reason: AGITATION Metronidazole (Flagyl 500mg Premixed Ivpb -) 500 mg in 100 mls @ 100 mls/hr IVPB Q8H-IV [facility] Last Admin: 09/25/17 10:07 Dose: 100 mls/hr AA 2.75 %/CALCIUM/LYTES/D7.5W (Clinimix 2.75%-7.5% Solution) 1,000 mls @ 25 mls /hr IVPB DAILY [facility] Last Admin: 09/25/17 14:16 Dose: Not Given Lorazepam (Ativan Injection -) 0.25 mg IVPUSH Q6H PRN PRN Reason: ANXIETY Metoprolol Tartrate (Lopressor Injection -) 5 mg IVPB Q4H PRN PRN Reason: HYPERTENSION Last Admin: 09/22/17 18:16 Dose: 5 mg Pantoprazole Sodium (Protonix Iv) 40 mg IVPUSH DAILY [facility] Last Admin: 09/25/17 10:07 Dose: 40 mg Scopolamine HBr (Transderm-Scop -) 1 patch TD Q72H [facility] Last Admin: 09/24/17 15:58 Dose: 1 patch Laboratory Results - last 24 hr 09/24/17 09/25/17 09/25/17 21:00 05:30 05:30 WBC 8.6 D RBC 2.59 L Hgb 9.8 L Hct 28.4 L MCV 109.9 H MCH 37.9 H MCHC 34.5 RDW 14.2 Plt Count 423 MPV 7.7 Sodium 140 Potassium 3.4 L Chloride 99 Carbon Dioxide 29 Anion Gap 12 BUN 13 D Creatinine 1.0 D Random Glucose 91 Calcium 8.3 L Phosphorus 3.9 Creatine Kinase Creatine Kinase Index CK-MB (CK-2) Troponin I Vancomycin Pre-Dose 28.827 H* D 09/25/17 05:30 WBC RBC Hgb Hct MCV MCH MCHC RDW Plt Count MPV Sodium Potassium Chloride Carbon Dioxide Anion Gap BUN Creatinine Random Glucose Calcium Phosphorus Creatine Kinase 151 Creatine Kinase Index 3.4 CK-MB (CK-2) 5.278 H Troponin I 0.18 H Vancomycin Pre-Dose Vital Signs Temp 98 F 09/25/17 14:17 Pulse 76 09/25/17 14:17 Resp 20 09/25/17 14:17 BP 141/63 09/25/17 14:17 Pulse Ox 99 09/25/17 11:21 Intake & Output 09/24/17 09/25/17 09/25/17 23:59 11:59 23:59 Intake Total 650 275 Output Total 200 200 Balance 450 275 -200 Intake: IV 100 175 Saline lock 100 175 IVPB 550 100 Output: Urine 200 200 [place] 200 200 Other: Voiding Method Indwelling Catheter Indwelling Catheter Bowel Movement No CC: groggy ```````````````````` skin--no redness lungs--bilat rhonchi L>R; unlabored heart--RR w M abd--soft, BS quiet neuro--drowsy but rousable; exhibits some twitching when touched ; impoverished cognition ``````````````````````````````````` Impression > Resp failure--2nd what now seems to be is chronic aspiration; CT shows multiple areas of consolidation and secretion build up that he himself cannot mobilize. He is on high flow oxygen and being kept NPO. The overal prognosis is now unfavorable given his preponderance to aspirate on his own secretions. I have again discussed the problem with his & children; and informed her that this cannot be prevented even by placing a feeding tube. PLAN: cont supp Tx for now; he is still a full code. > (+)troponin--discussed with Cardio who felt this was 2nd hypoxic event alone and not ACS; values are level; EKG noted T wave changes only but not S-T. > anemia--H/h seems stable. > Asp PNA--chronic & recurrent (see above note) with extensive consolidation of various areas of the lung: PLAN NPO for now; IV nurishment only; transderm Skop applied in effort to minimize secretion output; reasons and ill effects discussed with family. > dementia--with behavior component; family has noted twitching which is consistent with a high level of anxiety; PLAN adjust ativan to .25mg IVP > dysphagia--options limited; discussed dynamics with family; Feeding tube will not prevent further aspirations > Low Potassium/Mag--replenish as needed > decub ulcer--stage 2, Buttock; apply adhesives ~~~~~~~~~~~~~~~~~~~~~~~~~~ Dr Galloway Problem List - Problems (1) Delirium due to another medical condition Code(s): F05 - DELIRIUM DUE TO KNOWN PHYSIOLOGICAL CONDITION (2) Aspiration pneumonia Code(s): J69.0 - PNEUMONITIS DUE TO INHALATION OF FOOD AND VOMIT (3) Acute respiratory failure with hypoxemia Code(s): J96.01 - ACUTE RESPIRATORY FAILURE WITH HYPOXIA (4) Sepsis Code(s): A41.9 - SEPSIS, UNSPECIFIED ORGANISM Qualifiers: (5) Benign hypertensive renal disease Code(s): I12.9 - HYPERTENSIVE CHRONIC KIDNEY DISEASE W STG 1-4/UNSP CHR KDNY (6) CVA (cerebral vascular accident) Code(s): I63.9 - CEREBRAL INFARCTION, UNSPECIFIED Qualifiers: CVA mechanism: unspecified Qualified Code(s): I63.9 - Cerebral infarction, unspecified (7) Dementia with behavioral disturbance Code(s): F03.91 - UNSPECIFIED DEMENTIA WITH BEHAVIORAL DISTURBANCE Qualifiers: Dementia type: vascular dementia Qualified Code(s): F01.51 - Vascular dementia with behavioral disturbance (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
[2017-09-25] MEDS: LORazepam 2 MG/ML SDV VIAL IVPUSH PRN (18:17)
[2017-09-26 08:17] LABS: CHLORIDE 103 mmol/L (98-107); POTASSIUM 3.5 mmol/L (3.5-5.1); SODIUM 140 mmol/L (136-145)
[2017-09-26 08:26] LABS: ANION GAP 7 (8-16); BLOOD UREA NITROGEN 16 mg/dL (7-18); CALCIUM 8.1 mg/dL (8.5-10.1); CO2 30 mmol/L (21-32); CREATININE 1.2 mg/dL (0.7-1.3); GLUCOSE,RANDOM 97 mg/dL (74-106)
[2017-09-26] MEDS: ACETYLCYSTEINE 20% 200MG/ML 4 ML VIAL *FOR ORAL / INH USE ONLY NEB SCH ×3 (09:00→20:50)
[2017-09-26] MEDS: ALBUTEROL SO4 0.042% IH SOL 1.25 MG/3 ML VIAL.NEB NEB SCH ×3 (09:00→20:50)
[2017-09-26] MEDS ORDERED: PT OWN MED DRAWER 7, Y5N ONE (09:02)
[2017-09-26] MEDS: ENOXAPARIN NA (PORCINE) 40 MG/0.4 ML DISP.SYRIN SQ SCH (10:16)
[2017-09-26] MEDS: PANTOPRAZOLE SODIUM 40 MG VIAL IVPUSH SCH (10:16)
[2017-09-26] MEDS: AA 2.75 %/CALCIUM/LYTES/D7.5W 1,000 ML IVPB SCH ×2 (10:16→18:57)
--- NOTE | 2017-09-26 10:34 | PN ---
Progress Note (short form) - Note Progress Note: Remains lethargic with a congested cough on VM O2. No acute distress. No acute events documented overnight. Intake & Output 09/23/17 09/24/17 09/25/17 09/26/17 23:59 23:59 23:59 23:59 Intake Total 6311 012 8520 562 Output Total 1700 200 300 100 Balance -624 172 8980 462 Last Vital Signs Temp Pulse Resp BP Pulse Ox 98.2 F 81 18 145/81 95 09/26/17 06:17 09/26/17 10:20 09/26/17 10:20 09/26/17 10:20 09/25/17 21:00 Active Medications Acetaminophen (Tylenol Suppository -) 650 mg TN Q6H PRN PRN Reason: FEVER Last Admin: 09/25/17 04:32 Dose: 650 mg Acetylcysteine (Mucomyst 20 Oral / Inh Use Only*) 300 mg NEB RTID [facility] Last Admin: 09/26/17 09:00 Dose: 300 mg Albuterol Sulfate (Ventolin 0.042trength) -) 1 amp NEB RTID [facility] Last Admin: 09/26/17 09:00 Dose: 1 amp Enoxaparin Sodium (Lovenox -) 40 mg SQ DAILY [facility] Last Admin: 09/26/17 10:16 Dose: 40 mg Haloperidol (Haldol Injection (Fast Acting) -) 2.5 mg IM Q6H PRN PRN Reason: AGITATION Metronidazole (Flagyl 500mg Premixed Ivpb -) 500 mg in 100 mls @ 100 mls/hr IVPB Q8H-IV [facility] Last Admin: 09/26/17 10:16 Dose: 100 mls/hr AA 2.75 %/CALCIUM/LYTES/D7.5W (Clinimix 2.75%-7.5% Solution) 1,000 mls @ 42 mls /hr IVPB DAILY [facility] Last Admin: 09/26/17 10:16 Dose: Not Given Lorazepam (Ativan Injection -) 0.25 mg IVPUSH Q6H PRN PRN Reason: ANXIETY Last Admin: 09/25/17 18:17 Dose: 0.25 mg Metoprolol Tartrate (Lopressor Injection -) 5 mg IVPB Q4H PRN PRN Reason: HYPERTENSION Last Admin: 09/22/17 18:16 Dose: 5 mg Pantoprazole Sodium (Protonix Iv) 40 mg IVPUSH DAILY [facility] Last Admin: 09/26/17 10:16 Dose: 40 mg Scopolamine HBr (Transderm-Scop -) 1 patch TD Q72H [facility] Last Admin: 09/24/17 15:58 Dose: 1 patch Constitutional: Yes: Lethargic, mildly tachypneic on VM O2 Eyes: Yes: WNL HENT: Yes: dry membranes Neck: Yes: WNL Cardiovascular: Yes: Regular Rate and Rhythm, S1, S2 Respiratory: Yes: bibasilar coarse Rhonchi Left > Right Gastrointestinal: Yes: Normal Bowel Sounds, Soft Extremities: Yes: WNL Edema: No Labs: Laboratory Results - last 24 hr 09/26/17 06:18 Sodium 140 Potassium 3.5 Chloride 103 Carbon Dioxide 30 Anion Gap 7 L BUN 16 D Creatinine 1.2 Random Glucose 97 Calcium 8.1 L Problem List - Problems (1) Respiratory failure Code(s): J96.90 - RESPIRATORY FAILURE, UNSP, UNSP W HYPOXIA OR HYPERCAPNIA (2) Sepsis Code(s): A41.9 - SEPSIS, UNSPECIFIED ORGANISM Qualifiers: (3) Acute respiratory failure with hypoxemia Code(s): J96.01 - ACUTE RESPIRATORY FAILURE WITH HYPOXIA (4) Altered mental status Code(s): R41.82 - ALTERED MENTAL STATUS, UNSPECIFIED Qualifiers: Altered mental status type: disorientation Qualified Code(s): R41.0 - Disorientation, unspecified (5) Aspiration pneumonia Code(s): J69.0 - PNEUMONITIS DUE TO INHALATION OF FOOD AND VOMIT (6) Dysphagia as late effect of cerebrovascular disease Code(s): I69.991 - DYSPHAGIA FOLLOWING UNSPECIFIED CEREBROVASCULAR DISEASE (7) HTN (hypertension) Code(s): I10 - ESSENTIAL (PRIMARY) HYPERTENSION Qualifiers: Hypertension type: essential hypertension Qualified Code(s): I10 - Essential (primary) hypertension (8) Pneumonia Code(s): J18.9 - PNEUMONIA, UNSPECIFIED ORGANISM Qualifiers: Pneumonia type: aspiration pneumonia Aspiration pneumonia type: unspecified Laterality: unspecified laterality Lung location: unspecified part of lung Qualified Code(s): J69.0 - Pneumonitis due to inhalation of food and vomit Assessment/Plan ASSESSMENT AND PLAN: Acute Hypoxic Respiratory Failure improving MSSA Pneumonia Sepsis resolving Acute Kidney Injury improving Dysphagia Recurrent aspiration episodes - antibiotics per ID - aspiration precautions - inhaled bronchodilators - O2 to keep SpO2 >90% - Chest PT - DVT prophylaxis - Ongoing discussions for GO: ideally should be DNR/DNI given overall poor functional status and anticipated outcome Dr Brooks
--- NOTE | 2017-09-26 14:02 | PN ---
Progress Note (short form) - Note Progress Note: >>>>>>>>>>> medical note <<<<<<<<<<<<<< Current Medications Acetaminophen (Tylenol Suppository -) 650 mg [place] Q6H PRN PRN Reason: FEVER Last Admin: 09/25/17 04:32 Dose: 650 mg Acetylcysteine (Mucomyst 20 Oral / Inh Use Only*) 300 mg NEB RTID [facility] Last Admin: 09/26/17 09:00 Dose: 300 mg Albuterol Sulfate (Ventolin 0.042trength) -) 1 amp NEB RTID [facility] Last Admin: 09/26/17 09:00 Dose: 1 amp Enoxaparin Sodium (Lovenox -) 40 mg SQ DAILY [facility] Last Admin: 09/26/17 10:16 Dose: 40 mg Haloperidol (Haldol Injection (Fast Acting) -) 2.5 mg IM Q6H PRN PRN Reason: AGITATION AA 2.75 %/CALCIUM/LYTES/D7.5W (Clinimix 2.75%-7.5% Solution) 1,000 mls @ 42 mls /hr IVPB DAILY [facility] Last Admin: 09/26/17 10:16 Dose: Not Given Lorazepam (Ativan Injection -) 0.25 mg IVPUSH Q6H PRN PRN Reason: ANXIETY Last Admin: 09/25/17 18:17 Dose: 0.25 mg Metoprolol Tartrate (Lopressor Injection -) 5 mg IVPB Q4H PRN PRN Reason: HYPERTENSION Last Admin: 09/22/17 18:16 Dose: 5 mg Pantoprazole Sodium (Protonix Iv) 40 mg IVPUSH DAILY [facility] Last Admin: 09/26/17 10:16 Dose: 40 mg Scopolamine HBr (Transderm-Scop -) 1 patch TD Q72H [facility] Last Admin: 09/24/17 15:58 Dose: 1 patch Laboratory Results - last 24 hr 09/26/17 06:18 Sodium 140 Potassium 3.5 Chloride 103 Carbon Dioxide 30 Anion Gap 7 L BUN 16 D Creatinine 1.2 Random Glucose 97 Calcium 8.1 L Vital Signs Temp 98.5 F 09/26/17 13:35 Pulse 67 09/26/17 13:35 Resp 18 09/26/17 13:35 BP 146/73 09/26/17 13:35 Pulse Ox 95 09/25/17 21:00 Intake & Output 09/25/17 09/26/17 09/26/17 23:59 11:59 23:59 Intake Total 1168 562 Output Total 300 100 Balance 868 462 Intake: IV 968 562 Saline lock 968 462 saline lock 2 100 IVPB 200 Output: Urine 300 100 [place] 300 100 Other: Voiding Method Indwelling Catheter Indwelling Catheter Bowel Movement No CC: awake; alert in NAD ```````````````````` skin--no redness; IV sites clear of redness lungs--bilat rhonchi L>R; unlabored heart--RR w M abd--soft, BS quiet neuro--drowsy but rousable, good eye contact; impoverished cognition ``````````````````````````````````` Impression > Resp failure--2nd what now seems to be is chronic aspiration; CT shows multiple areas of consolidation and secretion build up that he himself cannot mobilize. He is on high flow oxygen and being kept NPO. The overal prognosis is now unfavorable given his preponderance to aspirate on his own secretions. Family aware of condition and outlook. PLAN: cont supp Tx ; he is still a full code; wishes to take him home; does not wish to get hospice yet. > anemia--H/h seems stable. > Asp PNA--chronic & recurrent (see above note) with extensive consolidation of various areas of the lung: PLAN IV nurishment & transderm Skop applied in effort to minimize secretion output; reasons and ill effects discussed with family. > dementia--with behavior component; family has noted twitching which is consistent with a high level of anxiety; PLAN adjust ativan to .25mg IVP > dysphagia--options limited; discussed dynamics with family; Feeding tube will not prevent further aspirations; will now give trial dose of pudding > Low Potassium/Mag--replenish as needed > decub ulcer--stage 2, Buttock; topicals being applied ~~~~~~~~~~~~~~~~~~~~~~~~~~ Dr Galloway Problem List - Problems (1) Delirium due to another medical condition Code(s): F05 - DELIRIUM DUE TO KNOWN PHYSIOLOGICAL CONDITION (2) Aspiration pneumonia Code(s): J69.0 - PNEUMONITIS DUE TO INHALATION OF FOOD AND VOMIT (3) Acute respiratory failure with hypoxemia Code(s): J96.01 - ACUTE RESPIRATORY FAILURE WITH HYPOXIA (4) Sepsis Code(s): A41.9 - SEPSIS, UNSPECIFIED ORGANISM Qualifiers: (5) Benign hypertensive renal disease Code(s): I12.9 - HYPERTENSIVE CHRONIC KIDNEY DISEASE W STG 1-4/UNSP CHR KDNY (6) CVA (cerebral vascular accident) Code(s): I63.9 - CEREBRAL INFARCTION, UNSPECIFIED Qualifiers: CVA mechanism: unspecified Qualified Code(s): I63.9 - Cerebral infarction, unspecified (7) Dementia with behavioral disturbance Code(s): F03.91 - UNSPECIFIED DEMENTIA WITH BEHAVIORAL DISTURBANCE Qualifiers: Dementia type: vascular dementia Qualified Code(s): F01.51 - Vascular dementia with behavioral disturbance (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
[2017-09-26] MEDS: LORazepam 2 MG/ML SDV VIAL IVPUSH PRN (19:03)
--- NOTE | 2017-09-26 19:12 | PN ---
Progress Note, Physician Chief Complaint: Pt has eyes open; family at bedside. His says he had "a little pudding" today. History of Present Illness: The patient is a 81-year-old white male with a significant past medical history of CVA, quadriplegia, dementia, hypertension, hyperlipidemia, and aspiration pneumonia, who presents to the emergency department for respiratory distress since this afternoon. As per EMS, the patient was found unresponsive at the scene, with a red substance around his mouth. As per family members, the patient had difficulty breathing last night but notes that his O2 sat stabilized when he went to bed. Family also states the patient was hypotensive yesterday. Family states that the patient was sleeping and unresponsive this morning, but notes that when he woke up he began to cough and the O2 level dropped. EMS states they put him on CPAP but his O2 sat continued to drop. Upon arrival patient is being bagged. Patient has no history of intubations, smoking , COPD. Patient was intubated in the ED. - Current Medication List Current Medications: Active Medications Acetaminophen (Tylenol Suppository -) 650 mg [place] Q6H PRN PRN Reason: FEVER Last Admin: 09/25/17 04:32 Dose: 650 mg Acetylcysteine (Mucomyst 20 Oral / Inh Use Only*) 300 mg NEB RTID [facility] Last Admin: 09/26/17 15:01 Dose: 300 mg Albuterol Sulfate (Ventolin 0.042trength) -) 1 amp NEB RTID [facility] Last Admin: 09/26/17 15:01 Dose: 1 amp Enoxaparin Sodium (Lovenox -) 40 mg SQ DAILY [facility] Last Admin: 09/26/17 10:16 Dose: 40 mg Haloperidol (Haldol Injection (Fast Acting) -) 2.5 mg IM Q6H PRN PRN Reason: AGITATION AA 2.75 %/CALCIUM/LYTES/D7.5W (Clinimix 2.75%-7.5% Solution) 1,000 mls @ 42 mls /hr IVPB DAILY [facility] Last Admin: 09/26/17 18:57 Dose: 42 mls/hr Lorazepam (Ativan Injection -) 0.25 mg IVPUSH Q6H PRN PRN Reason: ANXIETY Last Admin: 09/26/17 19:03 Dose: 0.25 mg Metoprolol Tartrate (Lopressor Injection -) 5 mg IVPB Q4H PRN PRN Reason: HYPERTENSION Last Admin: 09/22/17 18:16 Dose: 5 mg Multivitamins/Minerals (Infuvite Adult -) 10 ml IV DAILY [facility] Pantoprazole Sodium (Protonix Iv) 40 mg IVPUSH DAILY [facility] Last Admin: 09/26/17 10:16 Dose: 40 mg Scopolamine HBr (Transderm-Scop -) 1 patch TD Q72H [facility] Last Admin: 09/24/17 15:58 Dose: 1 patch - Objective Vital Signs: Vital Signs Temperature 100.0 F H 09/26/17 18:00 Pulse Rate 82 09/26/17 18:00 Respiratory Rate 20 09/26/17 18:00 Blood Pressure 137/75 09/26/17 18:00 O2 Sat by Pulse Oximetry (%) 96 09/26/17 09:00 Constitutional: Yes: Anxious Eyes: Yes: WNL HENT: Yes: WNL Neck: Yes: Decreased ROM Cardiovascular: Yes: S1, S2 Respiratory: Yes: Regular Gastrointestinal: Yes: Soft Genitourinary: Yes: Abernathy Present. No: Anuria Musculoskeletal: Yes: Muscle Weakness, Other (quadriplegia) Extremities: Yes: Cool Edema: No Peripheral Pulses WNL: Yes Neurological: Yes: Alert, Pre-Existing Deficit, Weakness Psychiatric: Yes: Other Labs: CBC, BMP 09/25/17 05:30 09/26/17 06:18 INR, PTT INR 1.20 (0.82-1.09) H 09/18/17 06:05 Abnormal Lab Results 09/26/17 06:18 Anion Gap 7 L Calcium 8.1 L - ....Imaging Ultrasound: Report Reviewed (ECHO: normal LVEF; moderate ) Problem List - Problems (1) Incontinent of urine Assessment/Plan: Abernathy catheter (250 ml output am shift). Code(s): R32 - UNSPECIFIED URINARY INCONTINENCE (2) Respiratory failure Assessment/Plan: s/p intubation. Aspiration pneumonia. Code(s): J96.90 - RESPIRATORY FAILURE, UNSP, UNSP W HYPOXIA OR HYPERCAPNIA (3) Sepsis Assessment/Plan: WBCs now WNL. Off antibiotics. Code(s): A41.9 - SEPSIS, UNSPECIFIED ORGANISM Qualifiers: (4) Acute respiratory failure with hypoxemia Assessment/Plan: f/u with pulomonologist Code(s): J96.01 - ACUTE RESPIRATORY FAILURE WITH HYPOXIA (5) Dementia Code(s): F03.90 - UNSPECIFIED DEMENTIA WITHOUT BEHAVIORAL DISTURBANCE (6) Aortic stenosis Assessment/Plan: ECHOs both 2016 and 09/2017: normal LVEF; moderate ; normal LV size. Code(s): I35.0 - NONRHEUMATIC AORTIC (VALVE) STENOSIS (7) Aspiration pneumonia Assessment/Plan: low grade fever; on Tylenol. Code(s): J69.0 - PNEUMONITIS DUE TO INHALATION OF FOOD AND VOMIT (8) Anxiety Assessment/Plan: on Ativan. Code(s): F41.9 - ANXIETY DISORDER, UNSPECIFIED (9) Decubitus skin ulcer Assessment/Plan: decubiti of sacrum and heel. Code(s): L89.90 - PRESSURE ULCER OF UNSPECIFIED SITE, UNSPECIFIED STAGE Qualifiers: Pressure ulcer location: buttock Pressure ulcer stage: stage 2
[2017-09-26] MEDS ORDERED: ALBUTEROL SO4 0.083% IH SOL 2.5 MG/3 ML VIAL.NEB. NEB ONE (20:57)
[2017-09-27 08:00] LABS: HEMATOCRIT 25.2 % (35.4-49); HEMOGLOBIN 8.8 GM/dL (11.7-16.9); MCH 38.4 pg (25.7-33.7); MEAN CELL VOLUME 109.9 fl (80-96); MEAN PLT VOLUME 7.6 fl (7.5-11.1); PLATELET COUNT 425 K/MM3 (134-434); RDW 14.6 % (11.9-15.9); WHITE BLOOD COUNT 9.5 K/mm3 (4.0-10.0)
[2017-09-27] MEDS: ACETYLCYSTEINE 20% 200MG/ML 4 ML VIAL *FOR ORAL / INH USE ONLY NEB SCH ×3 (08:10→19:59)
[2017-09-27] MEDS: ALBUTEROL SO4 0.042% IH SOL 1.25 MG/3 ML VIAL.NEB NEB SCH ×3 (08:10→19:59)
[2017-09-27 08:12] LABS: CALCIUM 7.9 mg/dL (8.5-10.1); CHLORIDE 105 mmol/L (98-107); POTASSIUM 3.5 mmol/L (3.5-5.1); SODIUM 142 mmol/L (136-145)
[2017-09-27 08:20] LABS: ANION GAP 4 (8-16); BLOOD UREA NITROGEN 18 mg/dL (7-18); CO2 33 mmol/L (21-32); CREATININE 1.2 mg/dL (0.7-1.3); GLUCOSE,RANDOM 92 mg/dL (74-106)
[2017-09-27] MEDS: ENOXAPARIN NA (PORCINE) 40 MG/0.4 ML DISP.SYRIN SQ SCH (10:50)
--- NOTE | 2017-09-27 11:35 | PN ---
Progress Note (short form) - Note Progress Note: RN and concerned that his mental status and his ability to swallow is worse than yesterday. He is awake and tracking. Saturation is 94% on NC2 and breathing is non-labored. He has been unable to take PO this AM. Intake & Output 09/24/17 09/25/17 09/26/17 09/27/17 23:59 23:59 23:59 23:59 Intake Total 650 1443 662 500 Output Total 200 300 300 Balance 450 1143 362 500 Last Vital Signs Temp Pulse Resp BP Pulse Ox 98.7 F 78 20 131/75 94 L 09/27/17 05:35 09/27/17 05:35 09/27/17 05:35 09/27/17 05:35 09/26/17 21:00 Home Medication List Medication Instructions Recorded Confirmed Type Allopurinol [Zyloprim -] 300 mg PO DAILY 09/24/14 05/13/17 History Atorvastatin Ca [Lipitor] 20 mg PO HS 09/24/14 05/13/17 History Aspirin [ASA -] 81 mg PO DAILY 08/02/16 05/13/17 History Atenolol [Tenormin] 50 mg PO DAILY 08/02/16 05/13/17 History Docusate Sodium [Colace -] 100 mg PO BID 05/13/17 05/13/17 History Haloperidol [Haldol -] 2 mg PO BID 05/13/17 05/13/17 History Active Medications Generic Name Dose Route Start Last Admin Trade Name Freq PRN Reason Stop Dose Admin Acetaminophen 650 mg 09/24/17 01:46 09/25/17 04:32 Tylenol Suppository - CT 650 mg Q6H PRN Administration FEVER Acetylcysteine 300 mg 09/22/17 20:00 09/27/17 08:10 Mucomyst 20 Oral / Inh Use Only* NEB 300 mg RTID [facility] Administration Albuterol Sulfate 1 amp 09/22/17 20:00 09/27/17 08:10 Ventolin 0.042trength) - NEB 1 amp RTID [facility] Administration Enoxaparin Sodium 40 mg 09/23/17 10:00 09/27/17 10:50 Lovenox - SQ 40 mg DAILY [facility] Administration Haloperidol 2.5 mg 09/22/17 16:03 Haldol Injection (Fast Acting) - IM Q6H PRN AGITATION AA 2.75 %/CALCIUM/LYTES/D7.5W 1,000 mls @ 42 mls/hr 09/25/17 16:39 09/26/17 18:57 Clinimix 2.75%-7.5% Solution IVPB 42 mls/hr DAILY [facility] Administration Lorazepam 0.25 mg 09/25/17 16:23 09/26/17 19:03 Ativan Injection - IVPUSH 0.25 mg Q6H PRN Administration ANXIETY Metoprolol Tartrate 5 mg 09/22/17 16:03 09/22/17 18:16 Lopressor Injection - IVPB 5 mg Q4H PRN Administration HYPERTENSION Multivitamins/Minerals 10 ml 09/27/17 10:00 Infuvite Adult - IV DAILY [facility] Pantoprazole Sodium 40 mg 09/23/17 10:00 09/26/17 10:16 Protonix Iv IVPUSH 40 mg DAILY [facility] Administration Pantoprazole Sodium 40 mg 09/27/17 12:00 Protonix Iv IVPUSH DAILY [facility] Scopolamine HBr 1 patch 09/24/17 15:30 09/24/17 15:58 Transderm-Scop - TD 1 patch Q72H [facility] Administration Constitutional: Yes: Awake, not following commands, NAD on NC O2 Eyes: Yes: WNL HENT: Yes: dry membranes Neck: Yes: WNL Cardiovascular: Yes: Regular Rate and Rhythm, S1, S2 Respiratory: Yes: bibasilar coarse Rhonchi Left > Right Gastrointestinal: Yes: Normal Bowel Sounds, Soft Extremities: Yes: WNL Edema: No Labs: Laboratory Results - last 24 hr 09/27/17 09/27/17 06:35 06:35 WBC 9.5 RBC 2.30 L Hgb 8.8 L D Hct 25.2 L MCV 109.9 H MCH 38.4 H MCHC 35.0 RDW 14.6 Plt Count 425 MPV 7.6 Sodium 142 Potassium 3.5 Chloride 105 Carbon Dioxide 33 H Anion Gap 4 L BUN 18 Creatinine 1.2 Random Glucose 92 Calcium 7.9 L Creatine Kinase 82 Troponin I 0.10 H D Problem List - Problems (1) Respiratory failure Code(s): J96.90 - RESPIRATORY FAILURE, UNSP, UNSP W HYPOXIA OR HYPERCAPNIA (2) Sepsis Code(s): A41.9 - SEPSIS, UNSPECIFIED ORGANISM Qualifiers: (3) Acute respiratory failure with hypoxemia Code(s): J96.01 - ACUTE RESPIRATORY FAILURE WITH HYPOXIA (4) Altered mental status Code(s): R41.82 - ALTERED MENTAL STATUS, UNSPECIFIED Qualifiers: Altered mental status type: disorientation Qualified Code(s): R41.0 - Disorientation, unspecified (5) Aspiration pneumonia Code(s): J69.0 - PNEUMONITIS DUE TO INHALATION OF FOOD AND VOMIT (6) Dysphagia as late effect of cerebrovascular disease Code(s): I69.991 - DYSPHAGIA FOLLOWING UNSPECIFIED CEREBROVASCULAR DISEASE (7) HTN (hypertension) Code(s): I10 - ESSENTIAL (PRIMARY) HYPERTENSION Qualifiers: Hypertension type: essential hypertension Qualified Code(s): I10 - Essential (primary) hypertension (8) Pneumonia Code(s): J18.9 - PNEUMONIA, UNSPECIFIED ORGANISM Qualifiers: Pneumonia type: aspiration pneumonia Aspiration pneumonia type: unspecified Laterality: unspecified laterality Lung location: unspecified part of lung Qualified Code(s): J69.0 - Pneumonitis due to inhalation of food and vomit Assessment/Plan ASSESSMENT AND PLAN: Acute Hypoxic Respiratory Failure improving MSSA Pneumonia Sepsis resolving Acute Kidney Injury improving Dysphagia Recurrent aspiration episodes - STAT Head CT to R/O new HR CONSULTANT event - antibiotics per ID - Check blood glucose - aspiration precautions - inhaled bronchodilators - O2 to keep SpO2 >90% - Chest PT - DVT prophylaxis - Ongoing discussions for GOC: ideally should be DNR/DNI given overall poor functional status and anticipated outcome Dr Brooks
[2017-09-27 12:39] LABS: HEMATOCRIT 27.1 % (35.4-49); HEMOGLOBIN 9.2 GM/dL (11.7-16.9); MCH 37.2 pg (25.7-33.7); MCHC 33.8 g/dl (32.0-35.9); MEAN PLT VOLUME 7.5 fl (7.5-11.1); PLATELET COUNT 425 K/MM3 (134-434); RBC 2.46 M/mm3 (4.00-5.60); RDW 14.5 % (11.9-15.9); WHITE BLOOD COUNT 10.3 K/mm3 (4.0-10.0)
[2017-09-27] MEDS: LORazepam 2 MG/ML SDV VIAL IVPUSH PRN (14:44)
[2017-09-27] MEDS: PANTOPRAZOLE SODIUM 40 MG VIAL IVPUSH SCH ×2 (14:51→14:52)
[2017-09-27] MEDS: SCOPOLAMINE HYDROBROMIDE 1 PATCH PATCH.TD72 TD SCH (14:52)
[2017-09-27] MEDS: MULTIVIT INJ. ADULT COMBO WITH VIT K 1 COMBO 10 ML VIAL IV SCH (14:52)
[2017-09-27] MEDS: AA 2.75 %/CALCIUM/LYTES/D7.5W 1,000 ML IVPB SCH (14:53)
[2017-09-27] MEDS: ACETAMINOPHEN 650 MG SUPP.RECT PR PRN (15:03)
--- NOTE | 2017-09-27 19:05 | PN ---
Progress Note, Physician History of Present Illness: stable, on face mask - Current Medication List Current Medications: Active Medications Acetaminophen (Tylenol Suppository -) 650 mg IN Q6H PRN PRN Reason: FEVER Last Admin: 09/27/17 15:03 Dose: 650 mg Acetylcysteine (Mucomyst 20 Oral / Inh Use Only*) 300 mg NEB RTID [facility] Last Admin: 09/27/17 13:48 Dose: 300 mg Albuterol Sulfate (Ventolin 0.042trength) -) 1 amp NEB RTID [facility] Last Admin: 09/27/17 13:48 Dose: 1 amp Enoxaparin Sodium (Lovenox -) 40 mg SQ DAILY [facility] Last Admin: 09/27/17 10:50 Dose: 40 mg Haloperidol (Haldol Injection (Fast Acting) -) 2.5 mg IM Q6H PRN PRN Reason: AGITATION AA 2.75 %/CALCIUM/LYTES/D7.5W (Clinimix 2.75%-7.5% Solution) 1,000 mls @ 42 mls /hr IVPB DAILY [facility] Last Admin: 09/27/17 14:53 Dose: 42 mls/hr Lorazepam (Ativan Injection -) 0.25 mg IVPUSH Q6H PRN PRN Reason: ANXIETY Last Admin: 09/27/17 14:44 Dose: 0.25 mg Metoprolol Tartrate (Lopressor Injection -) 5 mg IVPB Q4H PRN PRN Reason: HYPERTENSION Last Admin: 09/22/17 18:16 Dose: 5 mg Multivitamins/Minerals (Infuvite Adult -) 10 ml IV DAILY [facility] Last Admin: 09/27/17 14:52 Dose: 10 ml Pantoprazole Sodium (Protonix Iv) 40 mg IVPUSH DAILY [facility] Last Admin: 09/27/17 14:51 Dose: 40 mg Pantoprazole Sodium (Protonix Iv) 40 mg IVPUSH DAILY [facility] Last Admin: 09/27/17 14:52 Dose: Not Given Scopolamine HBr (Transderm-Scop -) 1 patch TD Q72H [facility] Last Admin: 09/27/17 14:52 Dose: 1 patch - Objective Vital Signs: Vital Signs Temperature 99.9 F H 09/27/17 18:54 Pulse Rate 64 09/27/17 17:03 Respiratory Rate 20 09/27/17 17:03 Blood Pressure 138/74 09/27/17 17:03 O2 Sat by Pulse Oximetry (%) 94 L 09/26/17 21:00 Constitutional: Yes: No Distress HENT: Yes: Atraumatic Neck: Yes: Supple Cardiovascular: Yes: Regular Rate and Rhythm Respiratory: Yes: Rhonchi Gastrointestinal: Yes: Normal Bowel Sounds Extremities: Yes: WNL Edema: LLE: Trace, RLE: Trace Neurological: Yes: Lethargy Labs: CBC, BMP 09/27/17 12:25 09/27/17 06:35 INR, PTT INR 1.20 (0.82-1.09) H 09/18/17 06:05 Problem List - Problems (1) Acute respiratory failure with hypoxia Assessment/Plan: on face mask o2 sats stable Code(s): J96.01 - ACUTE RESPIRATORY FAILURE WITH HYPOXIA (2) Anxiety and depression Code(s): F41.9 - ANXIETY DISORDER, UNSPECIFIED; F32.9 - MAJOR DEPRESSIVE DISORDER, SINGLE EPISODE, UNSPECIFIED (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 Code(s): I69.320 - APHASIA FOLLOWING CEREBRAL INFARCTION (4) Aspiration pneumonia Assessment/Plan: not on abx at this moent on dysphagia puree diet, tolerating as per family and nurse Code(s): J69.0 - PNEUMONITIS DUE TO INHALATION OF FOOD AND VOMIT (5) Benign hypertensive renal disease Code(s): I12.9 - HYPERTENSIVE CHRONIC KIDNEY DISEASE W STG 1-4/UNSP CHR KDNY (6) CVA (cerebral vascular accident) Code(s): I63.9 - CEREBRAL INFARCTION, UNSPECIFIED Qualifiers: CVA mechanism: unspecified Qualified Code(s): I63.9 - Cerebral infarction, unspecified (7) Chronic kidney disease (CKD) Code(s): N18.9 - CHRONIC KIDNEY DISEASE, UNSPECIFIED (8) Dementia Code(s): F03.90 - UNSPECIFIED DEMENTIA WITHOUT BEHAVIORAL DISTURBANCE (9) GERD (gastroesophageal reflux disease) Assessment/Plan: on protonix Code(s): K21.9 - GASTRO-ESOPHAGEAL REFLUX DISEASE WITHOUT ESOPHAGITIS Qualifiers: Esophagitis presence: esophagitis presence not specified Qualified Code(s) : K21.9 - Gastro-esophageal reflux disease without esophagitis (10) Generalized weakness Code(s): R53.1 - WEAKNESS (11) HLD (hyperlipidemia) Code(s): E78.5 - HYPERLIPIDEMIA, UNSPECIFIED Qualifiers: Hyperlipidemia type: pure hypercholesterolemia Qualified Code(s): E78.00 - Pure hypercholesterolemia, unspecified; E78.0 - Pure hypercholesterolemia (12) HTN (hypertension) Code(s): I10 - ESSENTIAL (PRIMARY) HYPERTENSION Qualifiers: Hypertension type: essential hypertension Qualified Code(s): I10 - Essential (primary) hypertension Assessment/Plan covering today for dr cadet
--- NOTE | 2017-09-27 21:42 | PN ---
Progress Note, Physician Chief Complaint: Pt has eyes open; answers verbal queries with difficulty, coughing frequently. Denies chest pain. History of Present Illness: The patient is a 81-year-old white male with a significant past medical history of CVA, quadriplegia, dementia, hypertension, hyperlipidemia, and aspiration pneumonia, who presents to the emergency department for respiratory distress since this afternoon. As per EMS, the patient was found unresponsive at the scene, with a red substance around his mouth. As per family members, the patient had difficulty breathing last night but notes that his O2 sat stabilized when he went to bed. Family also states the patient was hypotensive yesterday. Family states that the patient was sleeping and unresponsive this morning, but notes that when he woke up he began to cough and the O2 level dropped. EMS states they put him on CPAP but his O2 sat continued to drop. Upon arrival patient is being bagged. Patient has no history of intubations, smoking , COPD. Patient was intubated in the ED. - Current Medication List Current Medications: Active Medications Acetaminophen (Tylenol Suppository -) 650 mg [place] Q6H PRN PRN Reason: FEVER Last Admin: 09/27/17 15:03 Dose: 650 mg Acetylcysteine (Mucomyst 20 Oral / Inh Use Only*) 300 mg NEB RTID [facility] Last Admin: 09/27/17 19:59 Dose: 300 mg Albuterol Sulfate (Ventolin 0.042trength) -) 1 amp NEB RTID [facility] Last Admin: 09/27/17 19:59 Dose: 1 amp Enoxaparin Sodium (Lovenox -) 40 mg SQ DAILY [facility] Last Admin: 09/27/17 10:50 Dose: 40 mg Haloperidol (Haldol Injection (Fast Acting) -) 2.5 mg IM Q6H PRN PRN Reason: AGITATION AA 2.75 %/CALCIUM/LYTES/D7.5W (Clinimix 2.75%-7.5% Solution) 1,000 mls @ 42 mls /hr IVPB DAILY [facility] Last Admin: 09/27/17 14:53 Dose: 42 mls/hr Lorazepam (Ativan Injection -) 0.25 mg IVPUSH Q6H PRN PRN Reason: ANXIETY Last Admin: 09/27/17 14:44 Dose: 0.25 mg Metoprolol Tartrate (Lopressor Injection -) 5 mg IVPB Q4H PRN PRN Reason: HYPERTENSION Last Admin: 09/22/17 18:16 Dose: 5 mg Multivitamins/Minerals (Infuvite Adult -) 10 ml IV DAILY [facility] Last Admin: 09/27/17 14:52 Dose: 10 ml Pantoprazole Sodium (Protonix Iv) 40 mg IVPUSH DAILY [facility] Last Admin: 09/27/17 14:51 Dose: 40 mg Pantoprazole Sodium (Protonix Iv) 40 mg IVPUSH DAILY [facility] Last Admin: 09/27/17 14:52 Dose: Not Given Scopolamine HBr (Transderm-Scop -) 1 patch TD Q72H [facility] Last Admin: 09/27/17 14:52 Dose: 1 patch - Objective Vital Signs: Vital Signs Temperature 99.5 F 09/27/17 20:56 Pulse Rate 63 09/27/17 20:56 Respiratory Rate 20 09/27/17 20:56 Blood Pressure 133/75 09/27/17 20:56 O2 Sat by Pulse Oximetry (%) 97 09/27/17 20:41 Constitutional: Yes: Anxious Eyes: Yes: WNL HENT: Yes: WNL Neck: Yes: Decreased ROM Cardiovascular: Yes: S1, S2 Respiratory: Yes: Regular Gastrointestinal: Yes: Soft Genitourinary: No: Anuria Musculoskeletal: Yes: Muscle Weakness, Other (quadriplegia) Extremities: Yes: Cool Edema: No Peripheral Pulses WNL: Yes Integumentary: Yes: WNL Neurological: Yes: Weakness, Other Psychiatric: Yes: Other (dementia) Labs: CBC, BMP 09/27/17 12:25 09/27/17 06:35 INR, PTT INR 1.20 (0.82-1.09) H 09/18/17 06:05 Problem List - Problems (1) Incontinent of urine Assessment/Plan: f/u serially; return to negative fluid balance. Code(s): R32 - UNSPECIFIED URINARY INCONTINENCE (2) Respiratory failure Assessment/Plan: s/p intubation. Aspiration pneumonia. Code(s): J96.90 - RESPIRATORY FAILURE, UNSP, UNSP W HYPOXIA OR HYPERCAPNIA (3) Sepsis Assessment/Plan: WBCs rising. Off antibiotics. Code(s): A41.9 - SEPSIS, UNSPECIFIED ORGANISM Qualifiers: (4) Acute respiratory failure with hypoxemia Assessment/Plan: f/u with pulomonologist Code(s): J96.01 - ACUTE RESPIRATORY FAILURE WITH HYPOXIA (5) Dementia Code(s): F03.90 - UNSPECIFIED DEMENTIA WITHOUT BEHAVIORAL DISTURBANCE (6) Aortic stenosis Assessment/Plan: ECHOs both 2016 and 09/2017: normal LVEF; moderate ; normal LV size. Code(s): I35.0 - NONRHEUMATIC AORTIC (VALVE) STENOSIS (7) Aspiration pneumonia Code(s): J69.0 - PNEUMONITIS DUE TO INHALATION OF FOOD AND VOMIT (8) Anxiety Code(s): F41.9 - ANXIETY DISORDER, UNSPECIFIED (9) Decubitus skin ulcer Assessment/Plan: decubiti of sacrum and heel. Code(s): L89.90 - PRESSURE ULCER OF UNSPECIFIED SITE, UNSPECIFIED STAGE Qualifiers: Pressure ulcer location: buttock Pressure ulcer stage: stage 2 (10) Elevated troponin Assessment/Plan: TNI 0.16-->0.10; CK wnl. Likely 2ndary to earlier respiratory failure, CHF, rather than demand ischemia. Code(s): R74.8 - ABNORMAL LEVELS OF OTHER SERUM ENZYMES
[2017-09-28] MEDS: ACETAMINOPHEN 650 MG SUPP.RECT PR PRN (01:31)
[2017-09-28] MEDS ORDERED: PT OWN MED DRAWER 7, Y5N ONE ×3 (07:38→20:08)
[2017-09-28] MEDS: ACETYLCYSTEINE 20% 200MG/ML 4 ML VIAL *FOR ORAL / INH USE ONLY NEB SCH ×3 (07:44→20:50)
[2017-09-28] MEDS: ALBUTEROL SO4 0.042% IH SOL 1.25 MG/3 ML VIAL.NEB NEB SCH ×3 (07:45→20:50)
[2017-09-28] MEDS: ENOXAPARIN NA (PORCINE) 40 MG/0.4 ML DISP.SYRIN SQ SCH (09:27)
[2017-09-28] MEDS: PANTOPRAZOLE SODIUM 40 MG VIAL IVPUSH SCH (09:27)
--- NOTE | 2017-09-28 11:00 | PN ---
Progress Note (short form) - Note Progress Note: PULMONARY Not answering questions but awake, alert. Saturating well on 50% ventimask. Last Vital Signs Temp Pulse Resp BP Pulse Ox 98.7 F 56 L 20 142/60 99 09/28/17 09:00 09/28/17 09:00 09/28/17 09:00 09/28/17 09:00 09/28/17 09:00 Gen: NAD at rest Heart: RRR Lung: bilateral rhonchi Abd: soft, nontender Ext: UE edema CBC, BMP 09/27/17 12:25 09/27/17 06:35 Active Medications Acetaminophen (Tylenol Suppository -) 650 mg [place] Q6H PRN PRN Reason: FEVER Last Admin: 09/28/17 01:31 Dose: 650 mg Acetylcysteine (Mucomyst 20 Oral / Inh Use Only*) 300 mg NEB RTID [facility] Last Admin: 09/28/17 07:44 Dose: 300 mg Albuterol Sulfate (Ventolin 0.042trength) -) 1 amp NEB RTID [facility] Last Admin: 09/28/17 07:45 Dose: 1 amp Enoxaparin Sodium (Lovenox -) 40 mg SQ DAILY [facility] Last Admin: 09/28/17 09:27 Dose: 40 mg Haloperidol (Haldol Injection (Fast Acting) -) 2.5 mg IM Q6H PRN PRN Reason: AGITATION AA 2.75 %/CALCIUM/LYTES/D7.5W (Clinimix 2.75%-7.5% Solution) 1,000 mls @ 42 mls /hr IVPB DAILY [facility] Last Admin: 09/27/17 14:53 Dose: 42 mls/hr Lorazepam (Ativan Injection -) 0.25 mg IVPUSH Q6H PRN PRN Reason: ANXIETY Last Admin: 09/27/17 14:44 Dose: 0.25 mg Metoprolol Tartrate (Lopressor Injection -) 5 mg IVPB Q4H PRN PRN Reason: HYPERTENSION Last Admin: 09/22/17 18:16 Dose: 5 mg Multivitamins/Minerals (Infuvite Adult -) 10 ml IV DAILY [facility] Last Admin: 09/27/17 14:52 Dose: 10 ml Pantoprazole Sodium (Protonix Iv) 40 mg IVPUSH DAILY [facility] Last Admin: 09/28/17 09:27 Dose: 40 mg Scopolamine HBr (Transderm-Scop -) 1 patch TD Q72H [facility] Last Admin: 09/27/17 14:52 Dose: 1 patch A/P Acute Hypoxic Respiratory Failure improving MSSA Pneumonia Sepsis resolving Acute Kidney Injury improving Dysphagia - antibiotics per ID - aspiration precautions - inhaled bronchodilators - O2 to keep SpO2 >90% - swallow eval in progress - continue clinimix - DVT prophylaxis
--- NOTE | 2017-09-28 11:03 | EKG ---
Test Reason : Blood Pressure : / mmHG Vent. Rate : 062 BPM Atrial Rate : 062 BPM P-R Int : 154 ms QRS Dur : 100 ms QT Int : 394 ms P-R-T Axes : 042 -42 078 degrees QTc Int : 399 ms NORMAL SINUS RHYTHM LEFT AXIS DEVIATION NONSPECIFIC T WAVE ABNORMALITY ABNORMAL ECG WHEN COMPARED WITH ECG OF 24-SEP-2017 04:09, QT HAS SHORTENED Confirmed by ANKIT BOSS MD ([id number]) on 09/28/2017 11:03:25 AM Referred By: Confirmed By:ANKIT BOSS MD
[2017-09-28] MEDS: AA 2.75 %/CALCIUM/LYTES/D7.5W 1,000 ML IVPB SCH (11:13)
[2017-09-28] MEDS: MULTIVIT INJ. ADULT COMBO WITH VIT K 1 COMBO 10 ML VIAL IV SCH (11:13)
--- NOTE | 2017-09-28 14:21 | PN ---
Progress Note (short form) - Note Progress Note: medical Current Medications Acetaminophen (Tylenol Suppository -) 650 mg MA Q6H PRN PRN Reason: FEVER Last Admin: 09/28/17 01:31 Dose: 650 mg Acetylcysteine (Mucomyst 20 Oral / Inh Use Only*) 300 mg NEB RTID [facility] Last Admin: 09/28/17 13:06 Dose: 300 mg Albuterol Sulfate (Ventolin 0.042trength) -) 1 amp NEB RTID [facility] Last Admin: 09/28/17 13:06 Dose: 1 amp Enoxaparin Sodium (Lovenox -) 40 mg SQ DAILY [facility] Last Admin: 09/28/17 09:27 Dose: 40 mg Haloperidol (Haldol Injection (Fast Acting) -) 2.5 mg IM Q6H PRN PRN Reason: AGITATION AA 2.75 %/CALCIUM/LYTES/D7.5W (Clinimix 2.75%-7.5% Solution) 1,000 mls @ 42 mls /hr IVPB DAILY [facility] Last Admin: 09/28/17 11:13 Dose: 42 mls/hr Lorazepam (Ativan Injection -) 0.25 mg IVPUSH Q6H PRN PRN Reason: ANXIETY Last Admin: 09/27/17 14:44 Dose: 0.25 mg Metoprolol Tartrate (Lopressor Injection -) 5 mg IVPB Q4H PRN PRN Reason: HYPERTENSION Last Admin: 09/22/17 18:16 Dose: 5 mg Multivitamins/Minerals (Infuvite Adult -) 10 ml IV DAILY [facility] Last Admin: 09/28/17 11:13 Dose: 10 ml Pantoprazole Sodium (Protonix Iv) 40 mg IVPUSH DAILY [facility] Last Admin: 09/28/17 09:27 Dose: 40 mg Scopolamine HBr (Transderm-Scop -) 1 patch TD Q72H [facility] Last Admin: 09/27/17 14:52 Dose: 1 patch Laboratory Results - last 24 hr 09/27/17 18:09 POC Glucometer 116 Vital Signs Temperature 98.7 F 09/28/17 09:00 Pulse Rate 56 L 09/28/17 09:00 Respiratory Rate 20 09/28/17 09:00 Blood Pressure 142/60 09/28/17 09:00 O2 Sat by Pulse Oximetry (%) 99 09/28/17 09:00 CC: awake; poorly interactive ```````````````````` skin--IV sites clear of redness lungs--bilat rhonchi L>R; unlabored heart--RR w M abd--soft, BS quiet ext--no pedal edema appreciated neuro--drowsy but rousable, good eye contact; impoverished cognition ``````````````````````````````````` Impression > Resp failure--still Oxygen dep to keep sats over 90%. The overal prognosis is unfavorable given his preponderance to aspirate on his own secretions. Family aware of condition and outlook. PLAN: cont supp Tx ; issue of placing feeding tube is still in question; he is still a full code; wishes to take him home ; does not wish to get hospice yet. > anemia--H/h seems stable. > fevers--on and off; likely 2nd aspiration > Asp PNA--chronic & recurrent (see above note) with extensive consolidation of various areas of the lung: PLAN IV nurishment & transderm Skop applied in effort to minimize secretion output; reasons and ill effects discussed with family. > dementia--with behavior component; family has noted twitching which is consistent with a high level of anxiety; PLAN adjust ativan to .25mg IVP > dysphagia--options limited; discussed dynamics with family; Feeding tube will not prevent further aspirations; PO intake is sparse; not capable of meeting own nutritional and hydration needs; issue of placing feeding tube to be re- visited > Low Potassium/Mag--replenish as needed > decub ulcer--stage 2, Buttock; topicals being applied ~~~~~~~~~~~~~~~~~~~~~~~~~~ Dr Galloway Problem List - Problems (1) Delirium due to another medical condition Code(s): F05 - DELIRIUM DUE TO KNOWN PHYSIOLOGICAL CONDITION (2) Aspiration pneumonia Code(s): J69.0 - PNEUMONITIS DUE TO INHALATION OF FOOD AND VOMIT (3) Acute respiratory failure with hypoxemia Code(s): J96.01 - ACUTE RESPIRATORY FAILURE WITH HYPOXIA (4) Sepsis Code(s): A41.9 - SEPSIS, UNSPECIFIED ORGANISM Qualifiers: (5) Benign hypertensive renal disease Code(s): I12.9 - HYPERTENSIVE CHRONIC KIDNEY DISEASE W STG 1-4/UNSP CHR KDNY (6) CVA (cerebral vascular accident) Code(s): I63.9 - CEREBRAL INFARCTION, UNSPECIFIED Qualifiers: CVA mechanism: unspecified Qualified Code(s): I63.9 - Cerebral infarction, unspecified (7) Dementia with behavioral disturbance Code(s): F03.91 - UNSPECIFIED DEMENTIA WITH BEHAVIORAL DISTURBANCE Qualifiers: Dementia type: vascular dementia Qualified Code(s): F01.51 - Vascular dementia with behavioral disturbance (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
--- NOTE | 2017-09-28 15:35 | PN ---
Progress Note, Physician History of Present Illness: seen and examined today in nad. at bedside. pt more alert, more communicative. no new complaints. - Current Medication List Current Medications: Active Medications Acetaminophen (Tylenol Suppository -) 650 mg [place] Q6H PRN PRN Reason: FEVER Last Admin: 09/28/17 01:31 Dose: 650 mg Acetylcysteine (Mucomyst 20 Oral / Inh Use Only*) 300 mg NEB RTID [facility] Last Admin: 09/28/17 13:06 Dose: 300 mg Albuterol Sulfate (Ventolin 0.042trength) -) 1 amp NEB RTID [facility] Last Admin: 09/28/17 13:06 Dose: 1 amp Enoxaparin Sodium (Lovenox -) 40 mg SQ DAILY [facility] Last Admin: 09/28/17 09:27 Dose: 40 mg Haloperidol (Haldol Injection (Fast Acting) -) 2.5 mg IM Q6H PRN PRN Reason: AGITATION AA 2.75 %/CALCIUM/LYTES/D7.5W (Clinimix 2.75%-7.5% Solution) 1,000 mls @ 42 mls /hr IVPB DAILY [facility] Last Admin: 09/28/17 11:13 Dose: 42 mls/hr Lorazepam (Ativan Injection -) 0.25 mg IVPUSH Q6H PRN PRN Reason: ANXIETY Last Admin: 09/27/17 14:44 Dose: 0.25 mg Metoprolol Tartrate (Lopressor Injection -) 5 mg IVPB Q4H PRN PRN Reason: HYPERTENSION Last Admin: 09/22/17 18:16 Dose: 5 mg Multivitamins/Minerals (Infuvite Adult -) 10 ml IV DAILY [facility] Last Admin: 09/28/17 11:13 Dose: 10 ml Pantoprazole Sodium (Protonix Iv) 40 mg IVPUSH DAILY [facility] Last Admin: 09/28/17 09:27 Dose: 40 mg Scopolamine HBr (Transderm-Scop -) 1 patch TD Q72H [facility] Last Admin: 09/27/17 14:52 Dose: 1 patch - Objective Vital Signs: Vital Signs Temperature 97.6 F 09/28/17 14:21 Pulse Rate 62 09/28/17 14:21 Respiratory Rate 20 09/28/17 14:21 Blood Pressure 131/57 09/28/17 14:21 O2 Sat by Pulse Oximetry (%) 99 09/28/17 09:00 Constitutional: Yes: No Distress, Calm Eyes: Yes: Conjunctiva Clear, EOM Intact HENT: Yes: Atraumatic, Normocephalic Neck: Yes: Supple, Trachea Midline Cardiovascular: Yes: Regular Rate and Rhythm, Murmur, S1, S2. No: Bradycardia, Tachycardia, Pulse Irregular, Bruit, JVD, Gallop, Rub, S3, S4, Varicosities Respiratory: Yes: Regular, Diminished, On Venti-Mask, Rhonchi. No: Rales, SOB, Wheezes Gastrointestinal: Yes: Normal Bowel Sounds, Soft. No: Distention, Tenderness Musculoskeletal: Yes: WNL Extremities: Yes: WNL Edema: RUE: Trace Peripheral Pulses WNL: Yes Peripheral Pulses: Left Doralis Pedis: 2+, Right Dorsalis Pedis: 2+ Neurological: Yes: Alert Psychiatric: Yes: Alert Labs: CBC, BMP 09/27/17 12:25 09/27/17 06:35 INR, PTT INR 1.20 (0.82-1.09) H 09/18/17 06:05 - ....Imaging Chest X-ray: Report Reviewed, Image Reviewed EKG: Report Reviewed, Image Reviewed Other: Report Reviewed, Image Reviewed Assessment/Plan 81 year old man with a h/o HTN, HLD, CVA, h/o GI bleed dementia, h/o aspiration pneumonia admitted 09/15/17 with respiratory failure presumed secondary to aspiration pneumonia, pt was intubated in the ER, treated in the ICU for several days, then transferred to [facility]. Then had acute decompensation with hypoxia, cough, possible recurrence of aspiration. Supplemental O2 was given and pts hypoxia improved. Blood work showed a mildly elevated troponin. Elevated troponin-minimally elevated troponin with normal CK level -acute decompensation last night likely a primary respiratory event with possible recurrent aspiration less likely ACS -etiology of mild troponin elevation likely due to hypoxia superimposed on likely underlying CAD (based on chest CT) and known at least moderate Aortic stenosis -EKG showed no significant change from admission ekg -cardiac enzymes did not trend up -no further ischemic work up needed at this time -echo showed moderate -cont Lopressor IV for now until tolerates po bblocker Aortic stenosis -moderate -no further work up needed at this time, monitor with serial echos as outpatient SOB/Cough/resp failure -likely due to aspiration/pna with atelectesis secondary to pleural effusion -component of Hypoalbuminemia leading to third spacing and peripheral edema in addition to pleural effusion -edema has improved -does not require diuresis at this time -Pulmonary following
--- NOTE | 2017-09-28 15:46 | PN ---
Progress Note (short form) - Note Progress Note: Addendum: spoke with at bedside (at [facility]) discussing: -current condition as it concerns his medical issues; swallowing capabilities; and nutritional intake -need for artificial feeding (feeding tube); benefits and risks -overall prognosis and recovery (which at this time appears unfavorable) -her role in his care. She (as well as relatives) have decided against placement of a feeding tube ( even though it was explained that it may improve nutrition and hydration; but will not reduce risk of aspiration), based on his known wishes at a time when he was more lucid. She is calm and coherent and appears to have understood what I have indicated to her in total. She was invited to ask questions (should any come up); and will plan for discharge on 09/29/17 once all OP services are in place. Problem List - Problems (1) Delirium due to another medical condition Code(s): F05 - DELIRIUM DUE TO KNOWN PHYSIOLOGICAL CONDITION (2) Aspiration pneumonia Code(s): J69.0 - PNEUMONITIS DUE TO INHALATION OF FOOD AND VOMIT (3) Acute respiratory failure with hypoxemia Code(s): J96.01 - ACUTE RESPIRATORY FAILURE WITH HYPOXIA (4) Sepsis Code(s): A41.9 - SEPSIS, UNSPECIFIED ORGANISM Qualifiers: (5) Benign hypertensive renal disease Code(s): I12.9 - HYPERTENSIVE CHRONIC KIDNEY DISEASE W STG 1-4/UNSP CHR KDNY (6) CVA (cerebral vascular accident) Code(s): I63.9 - CEREBRAL INFARCTION, UNSPECIFIED Qualifiers: CVA mechanism: unspecified Qualified Code(s): I63.9 - Cerebral infarction, unspecified (7) Dementia with behavioral disturbance Code(s): F03.91 - UNSPECIFIED DEMENTIA WITH BEHAVIORAL DISTURBANCE Qualifiers: Dementia type: vascular dementia Qualified Code(s): F01.51 - Vascular dementia with behavioral disturbance (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
--- NOTE | 2017-09-28 15:56 | PN ---
Progress Note, BEHAVIOR THERAPIST - Note Progress Note: Medical events noted. Pt on pureed diet. No liquids.
--- NOTE | 2017-09-28 16:06 | PN ---
Progress Note, ELECTROMECHANICAL TECHNOLOGIST - Note Progress Note: Medical events noted. On puree/ no liquids po. Scopolamine patch. Less congested. Selected Entries 09/27/17 09/27/17 09/27/17 01:00 05:35 15:22 Breakfast Lunch 25% Supper Temperature 98.6 F 98.7 F 101.6 F H 09/27/17 09/27/17 09/27/17 17:03 18:19 18:54 Breakfast Lunch Supper 0 Temperature 100.3 F H 99.9 F H 09/27/17 09/28/17 09/28/17 20:56 01:15 02:22 Breakfast Lunch Supper Temperature 99.5 F 100.1 F H 99.1 F 09/28/17 09/28/17 09/28/17 06:00 09:00 10:09 Breakfast 25% Lunch Supper Temperature 97.7 F 98.7 F 09/28/17 14:21 Breakfast Lunch 0 Supper Temperature 97.6 F Laboratory Tests 09/25/17 09/27/17 05:30 06:35 WBC 8.6 D 9.5 Family has decided against TF. Pending d/c with suction machine. Consider trial honey thick liquid on tsp.
[2017-09-29] MEDS: ACETYLCYSTEINE 20% 200MG/ML 4 ML VIAL *FOR ORAL / INH USE ONLY NEB SCH ×3 (07:40→21:10)
[2017-09-29] MEDS: ALBUTEROL SO4 0.042% IH SOL 1.25 MG/3 ML VIAL.NEB NEB SCH ×3 (07:40→21:10)
[2017-09-29] MEDS ORDERED: PT OWN MED DRAWER 7, Y5N ONE (07:46)
[2017-09-29] MEDS: ENOXAPARIN NA (PORCINE) 40 MG/0.4 ML DISP.SYRIN SQ SCH (09:08)
[2017-09-29] MEDS: PANTOPRAZOLE SODIUM 40 MG VIAL IVPUSH SCH (09:08)
--- NOTE | 2017-09-29 10:26 | PN ---
Progress Note, Physician Chief Complaint: Seen and examined No acute distress son at bedside Appears clinically improved since I saw him last week - Current Medication List Current Medications: Active Medications Acetaminophen (Tylenol Suppository -) 650 mg [place] Q6H PRN PRN Reason: FEVER Last Admin: 09/28/17 01:31 Dose: 650 mg Acetylcysteine (Mucomyst 20 Oral / Inh Use Only*) 300 mg NEB RTID [facility] Last Admin: 09/29/17 07:40 Dose: 300 mg Albuterol Sulfate (Ventolin 0.042trength) -) 1 amp NEB RTID [facility] Last Admin: 09/29/17 07:40 Dose: 1 amp Enoxaparin Sodium (Lovenox -) 40 mg SQ DAILY [facility] Last Admin: 09/29/17 09:08 Dose: 40 mg Haloperidol (Haldol Injection (Fast Acting) -) 2.5 mg IM Q6H PRN PRN Reason: AGITATION AA 2.75 %/CALCIUM/LYTES/D7.5W (Clinimix 2.75%-7.5% Solution) 1,000 mls @ 42 mls /hr IVPB DAILY [facility] Last Admin: 09/28/17 11:13 Dose: 42 mls/hr Lorazepam (Ativan Injection -) 0.25 mg IVPUSH Q6H PRN PRN Reason: ANXIETY Last Admin: 09/27/17 14:44 Dose: 0.25 mg Metoprolol Tartrate (Lopressor Injection -) 5 mg IVPB Q4H PRN PRN Reason: HYPERTENSION Last Admin: 09/22/17 18:16 Dose: 5 mg Multivitamins/Minerals (Infuvite Adult -) 10 ml IV DAILY [facility] Last Admin: 09/28/17 11:13 Dose: 10 ml Pantoprazole Sodium (Protonix Iv) 40 mg IVPUSH DAILY [facility] Last Admin: 09/29/17 09:08 Dose: 40 mg Scopolamine HBr (Transderm-Scop -) 1 patch TD Q72H [facility] Last Admin: 09/27/17 14:52 Dose: 1 patch - Objective Vital Signs: Vital Signs Temperature 98.7 F 09/29/17 06:00 Pulse Rate 81 09/29/17 06:00 Respiratory Rate 20 09/29/17 06:00 Blood Pressure 121/85 09/29/17 06:00 O2 Sat by Pulse Oximetry (%) 98 09/28/17 21:00 Constitutional: Yes: No Distress, Calm Cardiovascular: Yes: Regular Rate and Rhythm Respiratory: Yes: Other (no active wheezing or rales) Gastrointestinal: Yes: Soft Edema: No (Venodynes) Labs: CBC, BMP 09/27/17 12:25 09/27/17 06:35 INR, PTT INR 1.20 (0.82-1.09) H 09/18/17 06:05 Microbiology 09/27/17 16:30 Blood - Peripheral Venous Blood Culture - Preliminary NO GROWTH OBTAINED AFTER 24 HOURS, INCUBATION TO CONTINUE FOR 4 DAYS. 09/27/17 16:30 Blood - Peripheral Venous Blood Culture - Preliminary NO GROWTH OBTAINED AFTER 24 HOURS, INCUBATION TO CONTINUE FOR 4 DAYS. Laboratory Tests 09/25/17 09/27/17 09/27/17 05:30 06:35 12:25 WBC 10.3 H Hgb 9.2 L Plt Count 425 Sodium 142 Potassium 3.5 Creatinine 1.2 Troponin I 0.18 H 0.10 H D Assessment/Plan Assessment/Plan 81 year old man with a h/o HTN, HLD, CVA, h/o GI bleed dementia, h/o aspiration pneumonia admitted 09/15/17 with respiratory failure presumed secondary to aspiration pneumonia, pt was intubated in the ER, treated in the ICU for several days, then transferred to [facility]. Then had acute decompensation with hypoxia, cough, possible recurrence of aspiration. Supplemental O2 was given and pts hypoxia improved. Blood work showed a mildly elevated troponin. Elevated troponin-minimally elevated troponin with normal CK level -acute decompensation last night likely a primary respiratory event with possible recurrent aspiration less likely ACS -etiology of mild troponin elevation likely due to hypoxia superimposed on likely underlying CAD (based on chest CT) and known at least moderate Aortic stenosis -EKG showed no significant change from admission ekg -cardiac enzymes did not trend up -no further ischemic work up needed at this time -echo showed moderate -cont Lopressor IV for now until tolerates po bblocker Aortic stenosis -moderate -no further work up needed at this time, monitor with serial echos as outpatient
--- NOTE | 2017-09-29 10:46 | PN ---
Progress Note (short form) - Note Progress Note: PULMONARY More alert, awake today. Grandson at bedside. No fevers recorded. Last Vital Signs Temp Pulse Resp BP Pulse Ox 97.6 F 66 20 152/76 98 09/29/17 09:00 09/29/17 09:00 09/29/17 09:00 09/29/17 09:00 09/29/17 09:00 Gen: NAD at rest Heart: RRR Lung: less rhonchi Abd: soft, nontender Ext: UE edema CBC, BMP 09/27/17 12:25 09/27/17 06:35 Active Medications Acetaminophen (Tylenol Suppository -) 650 mg [place] Q6H PRN PRN Reason: FEVER Last Admin: 09/28/17 01:31 Dose: 650 mg Acetylcysteine (Mucomyst 20 Oral / Inh Use Only*) 300 mg NEB RTID [facility] Last Admin: 09/29/17 07:40 Dose: 300 mg Albuterol Sulfate (Ventolin 0.042trength) -) 1 amp NEB RTID [facility] Last Admin: 09/29/17 07:40 Dose: 1 amp Enoxaparin Sodium (Lovenox -) 40 mg SQ DAILY [facility] Last Admin: 09/29/17 09:08 Dose: 40 mg Haloperidol (Haldol Injection (Fast Acting) -) 2.5 mg IM Q6H PRN PRN Reason: AGITATION AA 2.75 %/CALCIUM/LYTES/D7.5W (Clinimix 2.75%-7.5% Solution) 1,000 mls @ 42 mls /hr IVPB DAILY [facility] Last Admin: 09/28/17 11:13 Dose: 42 mls/hr Lorazepam (Ativan Injection -) 0.25 mg IVPUSH Q6H PRN PRN Reason: ANXIETY Last Admin: 09/27/17 14:44 Dose: 0.25 mg Metoprolol Tartrate (Lopressor Injection -) 5 mg IVPB Q4H PRN PRN Reason: HYPERTENSION Last Admin: 09/22/17 18:16 Dose: 5 mg Multivitamins/Minerals (Infuvite Adult -) 10 ml IV DAILY [facility] Last Admin: 09/28/17 11:13 Dose: 10 ml Pantoprazole Sodium (Protonix Iv) 40 mg IVPUSH DAILY [facility] Last Admin: 09/29/17 09:08 Dose: 40 mg Scopolamine HBr (Transderm-Scop -) 1 patch TD Q72H [facility] Last Admin: 09/27/17 14:52 Dose: 1 patch A/P Acute Hypoxic Respiratory Failure improving MSSA Pneumonia Sepsis resolving Acute Kidney Injury improving Dysphagia - antibiotics completed - aspiration precautions - inhaled bronchodilators - O2 to keep SpO2 >90% - DVT prophylaxis
[2017-09-29] MEDS: MULTIVIT INJ. ADULT COMBO WITH VIT K 1 COMBO 10 ML VIAL IV SCH (10:58)
[2017-09-29] MEDS: AA 2.75 %/CALCIUM/LYTES/D7.5W 1,000 ML IVPB SCH (10:59)
--- NOTE | 2017-09-29 11:44 | PN ---
Progress Note, EXTRUSION PRESS OPERATOR - Note Progress Note: Selected Entries 09/28/17 09/28/17 09/28/17 01:15 02:22 06:00 Breakfast Temperature 100.1 F H 99.1 F 97.7 F 09/28/17 09/28/17 09/28/17 09:00 14:21 16:55 Breakfast Temperature 98.7 F 97.6 F 97.9 F 09/28/17 09/29/17 09/29/17 22:00 06:00 09:00 Breakfast Temperature 97.5 F L 98.7 F 97.6 F 09/29/17 10:46 Breakfast 50% Temperature Honey thick liquid initiated on tsp, with compensatory strategies used to minimize aspiration. Grandson educated on feeding technique and mouth care before PO intake.
--- NOTE | 2017-09-29 14:46 | DS ---
Physical Examination Vital Signs: Vital Signs Temperature 97.6 F 09/29/17 09:00 Pulse Rate 66 09/29/17 09:00 Respiratory Rate 20 09/29/17 09:00 Blood Pressure 152/76 09/29/17 09:00 O2 Sat by Pulse Oximetry (%) 98 09/29/17 09:00 Findings/Remarks: skin--sacral sore stage 2; clean eyes--midline; eomi lungs--bilat rhonchi; unlabored heart--RR abd--soft, NT ext--no edema appreciated; feet & heels appear normal neuro--awake, aware of others but cognitively impoverished; paucity of speech; able to move extremties but not lift against gravity Labs: CBC, BMP 09/27/17 12:25 09/27/17 06:35 Discharge Summary Reason For Visit: SEPSIS Current Active Problems Aortic stenosis (Acute) Elevated troponin (Acute) Incontinent of urine (Acute) Respiratory failure (Acute) dysphagia aspiration pneumonia functional quadroplegia anemia hypertension dementia thrombocytosis hyperuricemia anxiety disorder electrolyte imbalance dehydration (resolved) Coronary artery disease (stable) lipidemia decubitus ulcer-sacrum history of CVA Procedures: Principal: ET intubation Other Procedures: modified barium swallow Hospital Course: A bedridden chronically ill 81 y/o M with history of chronic dysphagia, was admitted via ER in resp distress that required ET intubation. Pureed foods were then suctioned from the tube that suggested aspiration. He was cultured and covered with antibiotics. he was placed on a ventilator and taken to ICU; where he was stabilized and eventually successfully extubated. Sputum cultures grew staph but was MSSA. BC were negative. He was seen by ID environmental remediation consultant and Tx'd accordingly with IV Antibiotics. Once extubated he was kept NPO and seen by UR COORDINATOR who eventually did a MBS. The study revealed that he could safely swallow pureed foods, but when he was fed afterwards, he developed acute coughing, fevers, and further distress that required BIPAP device. Chest CT showed scattered infiltrates and consolidations to suggest chronic and acute aspirations. The CT also showed calcific coronary artery disease. Troponin done while in acute resp distress was elevated but did not trend up and had little changes in the EKG. He was seen by cardiology who did not feel this required any further intervention and did not feel it was a case of ACS. He gradually re- stabilized and was down graded to a V-mask as his oxygen saturations improved. He was again re-tried on PO feeds and this time he did not developed any acute respiratory symptoms, but his intake was minimal. The matter of placing a feeding tube (for nutritional needs) was then discussed with the family (); the pro's and con's of doing so were reviewed in full; and it was ultimately decided by the family not to place the feeding tube (based upon the patient's known wishes at a time when he was more lucid) at this time. He was again seen by speech path, who encouraged further (but slow) PO feedings, and it was decided upon by the family to discharge him home under their care and VNS. They were instructed on methods of care/support/feeding. They were also told that his condition was tenuous and that he could deteriorate rapidly if he aspirated again; or if his nutritional needs could not be met; of which they clearly understood and acknowledged. Condition: Guarded - Instructions Diet, Activity, Other Instructions: pureed and liquids thickened to "honey" To be fed in small but frequent intervals To be placed in an upright (sitting up) position when being fed advised to check his BP; and HR and oxygen saturation advised to fully crush any medication and mix with pureed foods advised turn and off load sarcal area; and cleanse after each BM or urination Referrals: Manuel Galloway MD [Primary Care Provider] - Disposition: VNS/HOME HEALTH CARE - Home Medications Comprehensive Discharge Medication List: Ambulatory Orders Allopurinol [Zyloprim -] 300 mg PO DAILY 09/24/14 Atenolol [Tenormin] 50 mg PO DAILY 08/02/16 Alprazolam 1 mg PO DAILY PRN #30 tablet MDD 1 01/02/17 Foam Bandage [Optifoam] 1 each TP DAILY #30 bandage 05/17/17 Acetaminophen 500 mg PO TID PRN #30 tablet 09/28/17 Albuterol Sulfate 0.042% [Ventolin 0.042% (Half-Strength) -] 1 amp NEB RTID PRN #90 amp 09/28/17 Scopolamine Hydrobromide [Transderm-Scop -] 1 patch TD Q72H #7 patch.[id number]
[2017-09-29] MEDS: ACETAMINOPHEN 650 MG SUPP.RECT PR PRN (17:56)
[2017-09-29] MEDS ORDERED: ALBUTEROL SO4 0.083% IH SOL 2.5 MG/3 ML VIAL.NEB. NEB ONE (20:56)
[2017-09-30] MEDS: ALBUTEROL SO4 0.042% IH SOL 1.25 MG/3 ML VIAL.NEB NEB SCH ×3 (07:10→20:13)
[2017-09-30] MEDS: ACETYLCYSTEINE 20% 200MG/ML 4 ML VIAL *FOR ORAL / INH USE ONLY NEB SCH ×3 (07:10→20:13)
[2017-09-30] MEDS: MULTIVIT INJ. ADULT COMBO WITH VIT K 1 COMBO 10 ML VIAL IV SCH (09:47)
[2017-09-30] MEDS: AA 2.75 %/CALCIUM/LYTES/D7.5W 1,000 ML IVPB SCH (09:47)
[2017-09-30] MEDS: ENOXAPARIN NA (PORCINE) 40 MG/0.4 ML DISP.SYRIN SQ SCH (09:50)
[2017-09-30] MEDS: PANTOPRAZOLE SODIUM 40 MG VIAL IVPUSH SCH (09:50)
--- NOTE | 2017-09-30 11:28 | PN ---
Progress Note (short form) - Note Progress Note: PULMONARY Doing well. Remains alert, awake today. No fevers recorded. Saturating 97% on 2L nasal cannula. Last Vital Signs Temp Pulse Resp BP Pulse Ox 97.9 F 67 18 112/61 95 09/30/17 10:05 09/30/17 10:13 09/30/17 10:05 09/30/17 10:05 09/30/17 10:13 Gen: NAD at rest Heart: RRR Lung: less rhonchi Abd: soft, nontender Ext: UE edema CBC, BMP 09/27/17 12:25 09/27/17 06:35 Active Medications Acetaminophen (Tylenol Suppository -) 650 mg DE Q6H PRN PRN Reason: FEVER Last Admin: 09/29/17 17:56 Dose: 650 mg Acetylcysteine (Mucomyst 20 Oral / Inh Use Only*) 300 mg NEB RTID [facility] Last Admin: 09/30/17 07:10 Dose: 300 mg Albuterol Sulfate (Ventolin 0.042trength) -) 1 amp NEB RTID [facility] Last Admin: 09/30/17 07:10 Dose: 1 amp Enoxaparin Sodium (Lovenox -) 40 mg SQ DAILY [facility] Last Admin: 09/30/17 09:50 Dose: 40 mg Haloperidol (Haldol Injection (Fast Acting) -) 2.5 mg IM Q6H PRN PRN Reason: AGITATION AA 2.75 %/CALCIUM/LYTES/D7.5W (Clinimix 2.75%-7.5% Solution) 1,000 mls @ 42 mls /hr IVPB DAILY [facility] Last Admin: 09/30/17 09:47 Dose: 42 mls/hr Lorazepam (Ativan Injection -) 0.25 mg IVPUSH Q6H PRN PRN Reason: ANXIETY Last Admin: 09/27/17 14:44 Dose: 0.25 mg Metoprolol Tartrate (Lopressor Injection -) 5 mg IVPB Q4H PRN PRN Reason: HYPERTENSION Last Admin: 09/22/17 18:16 Dose: 5 mg Multivitamins/Minerals (Infuvite Adult -) 10 ml IV DAILY [facility] Last Admin: 09/30/17 09:47 Dose: 10 ml Pantoprazole Sodium (Protonix Iv) 40 mg IVPUSH DAILY [facility] Last Admin: 09/30/17 09:50 Dose: 40 mg Scopolamine HBr (Transderm-Scop -) 1 patch TD Q72H [facility] Last Admin: 09/27/17 14:52 Dose: 1 patch A/P Acute Hypoxic Respiratory Failure improving MSSA Pneumonia Sepsis resolving Acute Kidney Injury improving Dysphagia - antibiotics completed - aspiration precautions - inhaled bronchodilators - O2 to keep SpO2 >90% - will need home O2 - DVT prophylaxis
--- NOTE | 2017-09-30 12:09 | PN ---
Progress Note, Physician Chief Complaint: Covering DR Galloway Events noted Pt pulled out iv line-- had clinimix running Ate his entire breakfast today per [employer] Appetite very good now no complaints feels well - Current Medication List Current Medications: Active Medications Acetaminophen (Tylenol Suppository -) 650 mg [place] Q6H PRN PRN Reason: FEVER Last Admin: 09/29/17 17:56 Dose: 650 mg Acetylcysteine (Mucomyst 20 Oral / Inh Use Only*) 300 mg NEB RTID [facility] Last Admin: 09/30/17 07:10 Dose: 300 mg Albuterol Sulfate (Ventolin 0.042trength) -) 1 amp NEB RTID [facility] Last Admin: 09/30/17 07:10 Dose: 1 amp Enoxaparin Sodium (Lovenox -) 40 mg SQ DAILY [facility] Last Admin: 09/30/17 09:50 Dose: 40 mg Haloperidol (Haldol Injection (Fast Acting) -) 2.5 mg IM Q6H PRN PRN Reason: AGITATION AA 2.75 %/CALCIUM/LYTES/D7.5W (Clinimix 2.75%-7.5% Solution) 1,000 mls @ 42 mls /hr IVPB DAILY [facility] Last Admin: 09/30/17 09:47 Dose: 42 mls/hr Lorazepam (Ativan Injection -) 0.25 mg IVPUSH Q6H PRN PRN Reason: ANXIETY Last Admin: 09/27/17 14:44 Dose: 0.25 mg Metoprolol Tartrate (Lopressor Injection -) 5 mg IVPB Q4H PRN PRN Reason: HYPERTENSION Last Admin: 09/22/17 18:16 Dose: 5 mg Multivitamins/Minerals (Infuvite Adult -) 10 ml IV DAILY [facility] Last Admin: 09/30/17 09:47 Dose: 10 ml Pantoprazole Sodium (Protonix Iv) 40 mg IVPUSH DAILY [facility] Last Admin: 09/30/17 09:50 Dose: 40 mg Scopolamine HBr (Transderm-Scop -) 1 patch TD Q72H [facility] Last Admin: 09/27/17 14:52 Dose: 1 patch - Objective Vital Signs: Vital Signs Temperature 97.9 F 09/30/17 10:05 Pulse Rate 67 09/30/17 10:13 Respiratory Rate 18 09/30/17 10:05 Blood Pressure 112/61 03/21/18 10:05 O2 Sat by Pulse Oximetry (%) 95 09/30/17 10:13 Constitutional: Yes: No Distress Cardiovascular: Yes: Regular Rate and Rhythm Respiratory: Yes: Diminished Gastrointestinal: Yes: Normal Bowel Sounds, Soft. No: Tenderness Edema: No Labs: CBC, BMP 09/27/17 12:25 09/27/17 06:35 INR, PTT INR 1.20 (0.82-1.09) H 09/18/17 06:05 Problem List - Problems (1) Respiratory failure Code(s): J96.90 - RESPIRATORY FAILURE, UNSP, UNSP W HYPOXIA OR HYPERCAPNIA (2) Sepsis Code(s): A41.9 - SEPSIS, UNSPECIFIED ORGANISM Qualifiers: (3) UTI (urinary tract infection) Code(s): N39.0 - URINARY TRACT INFECTION, SITE NOT SPECIFIED (4) Acute renal insufficiency Code(s): N28.9 - DISORDER OF KIDNEY AND URETER, UNSPECIFIED (5) Acute respiratory failure with hypoxemia Code(s): J96.01 - ACUTE RESPIRATORY FAILURE WITH HYPOXIA (6) Altered mental status Code(s): R41.82 - ALTERED MENTAL STATUS, UNSPECIFIED Qualifiers: Altered mental status type: disorientation Qualified Code(s): R41.0 - Disorientation, unspecified (7) Aspiration pneumonia Code(s): J69.0 - PNEUMONITIS DUE TO INHALATION OF FOOD AND VOMIT Assessment/Plan PLAN Awaiting VNS - family wishes to take him home Aspiration precautions pt improved clinically DC Clinimix as pt is eating well now dc planning --home with VNS
[2017-09-30] MEDS: SCOPOLAMINE HYDROBROMIDE 1 PATCH PATCH.TD72 TD SCH (17:31)
[2017-09-30] MEDS ORDERED: ALBUTEROL SO4 0.083% IH SOL 2.5 MG/3 ML VIAL.NEB. NEB ONE (20:03)
[2017-10-01] MEDS: ALBUTEROL SO4 0.042% IH SOL 1.25 MG/3 ML VIAL.NEB NEB SCH ×2 (07:40→13:16)
[2017-10-01] MEDS: ACETYLCYSTEINE 20% 200MG/ML 4 ML VIAL *FOR ORAL / INH USE ONLY NEB SCH ×2 (07:40→13:16)
[2017-10-01] MEDS: PANTOPRAZOLE SODIUM 40 MG VIAL IVPUSH SCH (09:08)
[2017-10-01] MEDS: ENOXAPARIN NA (PORCINE) 40 MG/0.4 ML DISP.SYRIN SQ SCH (09:08)
[2017-10-01] MEDS: MULTIVIT INJ. ADULT COMBO WITH VIT K 1 COMBO 10 ML VIAL IV SCH (09:08)
--- NOTE | 2017-10-01 10:36 | PN ---
Progress Note (short form) - Note Progress Note: PULMONARY Doing remarkably well. Remains alert, awake today. No fevers recorded. Saturates 93-94% on room air without exertion. Last Vital Signs Temp Pulse Resp BP Pulse Ox 98.3 F 60 20 144/67 97 10/01/17 08:10 10/01/17 09:15 10/01/17 08:10 10/01/17 08:10 10/01/17 09:15 Gen: NAD at rest Heart: RRR Lung: less rhonchi Abd: soft, nontender Ext: no edema CBC, BMP 09/27/17 12:25 09/27/17 06:35 Active Medications Acetaminophen (Tylenol Suppository -) 650 mg [place] Q6H PRN PRN Reason: FEVER Last Admin: 09/29/17 17:56 Dose: 650 mg Acetylcysteine (Mucomyst 20 Oral / Inh Use Only*) 300 mg NEB RTID [facility] Last Admin: 10/01/17 07:40 Dose: 300 mg Albuterol Sulfate (Ventolin 0.042trength) -) 1 amp NEB RTID [facility] Last Admin: 10/01/17 07:40 Dose: 1 amp Enoxaparin Sodium (Lovenox -) 40 mg SQ DAILY [facility] Last Admin: 10/01/17 09:08 Dose: 40 mg Haloperidol (Haldol Injection (Fast Acting) -) 2.5 mg IM Q6H PRN PRN Reason: AGITATION Lorazepam (Ativan Injection -) 0.25 mg IVPUSH Q6H PRN PRN Reason: ANXIETY Last Admin: 09/27/17 14:44 Dose: 0.25 mg Metoprolol Tartrate (Lopressor Injection -) 5 mg IVPB Q4H PRN PRN Reason: HYPERTENSION Last Admin: 09/22/17 18:16 Dose: 5 mg Multivitamins/Minerals (Infuvite Adult -) 10 ml IV DAILY [facility] Last Admin: 10/01/17 09:08 Dose: Not Given Pantoprazole Sodium (Protonix Iv) 40 mg IVPUSH DAILY [facility] Last Admin: 10/01/17 09:08 Dose: Not Given Scopolamine HBr (Transderm-Scop -) 1 patch TD Q72H [facility] Last Admin: 09/30/17 17:31 Dose: 1 patch A/P Acute Hypoxic Respiratory Failure improving MSSA Pneumonia Sepsis resolving Acute Kidney Injury improving Dysphagia - antibiotics completed - aspiration precautions - inhaled bronchodilators - O2 to keep SpO2 >90% - if SpO2 >90% even while doing care will not need home O2 - DVT prophylaxis
--- NOTE | 2017-10-01 10:58 | PN ---
Progress Note (short form) - Note Progress Note: ^^^^^^^^^^^^^^ Medical==addendum to discharge summary ^^^^^^^^^^^^^^ Current Medications Acetaminophen (Tylenol Suppository -) 650 mg [place] Q6H PRN PRN Reason: FEVER Last Admin: 09/29/17 17:56 Dose: 650 mg Acetylcysteine (Mucomyst 20 Oral / Inh Use Only*) 300 mg NEB RTID [facility] Last Admin: 10/01/17 07:40 Dose: 300 mg Albuterol Sulfate (Ventolin 0.042trength) -) 1 amp NEB RTID [facility] Last Admin: 10/01/17 07:40 Dose: 1 amp Enoxaparin Sodium (Lovenox -) 40 mg SQ DAILY [facility] Last Admin: 10/01/17 09:08 Dose: 40 mg Haloperidol (Haldol Injection (Fast Acting) -) 2.5 mg IM Q6H PRN PRN Reason: AGITATION Lorazepam (Ativan Injection -) 0.25 mg IVPUSH Q6H PRN PRN Reason: ANXIETY Last Admin: 09/27/17 14:44 Dose: 0.25 mg Metoprolol Tartrate (Lopressor Injection -) 5 mg IVPB Q4H PRN PRN Reason: HYPERTENSION Last Admin: 09/22/17 18:16 Dose: 5 mg Multivitamins/Minerals (Infuvite Adult -) 10 ml IV DAILY [facility] Last Admin: 10/01/17 09:08 Dose: Not Given Pantoprazole Sodium (Protonix Iv) 40 mg IVPUSH DAILY [facility] Last Admin: 10/01/17 09:08 Dose: Not Given Scopolamine HBr (Transderm-Scop -) 1 patch TD Q72H [facility] Last Admin: 09/30/17 17:31 Dose: 1 patch Vital Signs Temperature 98.3 F 10/01/17 08:10 Pulse Rate 60 10/01/17 09:15 Respiratory Rate 20 10/01/17 08:10 Blood Pressure 144/67 10/01/17 08:10 O2 Sat by Pulse Oximetry (%) 97 10/01/17 09:15 CC; None `````````````````` skin--good color eyes--midline lungs--few rhonchi; unlabored heart--RR abd--soft ext--no edema neuro--awake; alert; vocalizes; moves somewhat on command ````````````````````````````````````````````````````````````` A bedridden chronically ill 81 y/o M with history of chronic dysphagia, was admitted via ER in resp distress that required ET intubation. Pureed foods were then suctioned from the tube that suggested aspiration. He was cultured and covered with antibiotics. he was placed on a ventilator and taken to ICU; where he was stabilized and eventually successfully extubated. Sputum cultures grew staph but was MSSA. BC were negative. He was seen by ID quantitative consultant and Tx'd accordingly with IV Antibiotics. Once extubated he was kept NPO and seen by SOUND EDITOR who eventually did a MBS. The study revealed that he could safely swallow pureed foods, but when he was fed afterwards, he developed acute coughing, fevers, and further distress that required BIPAP device. Chest CT showed scattered infiltrates and consolidations to suggest chronic and acute aspirations. The CT also showed calcific coronary artery disease. Troponin done while in acute resp distress was elevated but did not trend up and had little changes in the EKG. He was seen by cardiology who did not feel this required any further intervention and did not feel it was a case of ACS. He gradually re- stabilized and was down graded to a V-mask as his oxygen saturations improved. He was again re-tried on PO feeds and this time he did not developed any acute respiratory symptoms, but his intake was minimal. The matter of placing a feeding tube (for nutritional needs) was then discussed with the family (); the pro's and con's of doing so were reviewed in full; and it was ultimately decided by the family not to place the feeding tube (based upon the patient's known wishes at a time when he was more lucid) at this time. He was again seen by speech path, who encouraged further (but slow) PO feedings, and it was decided upon by the family to discharge him home under their care and VNS. They were instructed on methods of care/support/feeding. They were also told that his condition was tenuous and that he could deteriorate rapidly if he aspirated again; or if his nutritional needs could not be met; of which they clearly understood and acknowledged. Addendum: over the past few days, his PO intake has improved, without coughing and respiratory distress; his breathing has been less labored and his oxygenation has been "in range" this AM without supplemental oxygen. Plan: will hope to d/c home today as previously planned Problem List - Problems (1) Delirium due to another medical condition Code(s): F05 - DELIRIUM DUE TO KNOWN PHYSIOLOGICAL CONDITION (2) Aspiration pneumonia Code(s): J69.0 - PNEUMONITIS DUE TO INHALATION OF FOOD AND VOMIT (3) Acute respiratory failure with hypoxemia Code(s): J96.01 - ACUTE RESPIRATORY FAILURE WITH HYPOXIA (4) Sepsis Code(s): A41.9 - SEPSIS, UNSPECIFIED ORGANISM Qualifiers: (5) Benign hypertensive renal disease Code(s): I12.9 - HYPERTENSIVE CHRONIC KIDNEY DISEASE W STG 1-4/UNSP CHR KDNY (6) CVA (cerebral vascular accident) Code(s): I63.9 - CEREBRAL INFARCTION, UNSPECIFIED Qualifiers: CVA mechanism: unspecified Qualified Code(s): I63.9 - Cerebral infarction, unspecified (7) Dementia with behavioral disturbance Code(s): F03.91 - UNSPECIFIED DEMENTIA WITH BEHAVIORAL DISTURBANCE Qualifiers: Dementia type: vascular dementia Qualified Code(s): F01.51 - Vascular dementia with behavioral disturbance (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
--- NOTE | 2017-10-01 13:41 | PN ---
Progress Note, Physician History of Present Illness: seen and examined today in [facility]. sitting up in bed, awake and alert, being assisted with eating thickened liquids, seems to be tolerating swallowing. - Current Medication List Current Medications: Active Medications Acetaminophen (Tylenol Suppository -) 650 mg [place] Q6H PRN PRN Reason: FEVER Last Admin: 09/29/17 17:56 Dose: 650 mg Acetylcysteine (Mucomyst 20 Oral / Inh Use Only*) 300 mg NEB RTID [facility] Last Admin: 10/01/17 13:16 Dose: 300 mg Albuterol Sulfate (Ventolin 0.042trength) -) 1 amp NEB RTID [facility] Last Admin: 10/01/17 13:16 Dose: 1 amp Enoxaparin Sodium (Lovenox -) 40 mg SQ DAILY [facility] Last Admin: 10/01/17 09:08 Dose: 40 mg Lorazepam (Ativan Injection -) 0.25 mg IVPUSH Q6H PRN PRN Reason: ANXIETY Last Admin: 09/27/17 14:44 Dose: 0.25 mg Scopolamine HBr (Transderm-Scop -) 1 patch TD Q72H [facility] Last Admin: 09/30/17 17:31 Dose: 1 patch - Objective Vital Signs: Vital Signs Temperature 98.3 F 10/01/17 08:10 Pulse Rate 63 10/01/17 13:08 Respiratory Rate 20 10/01/17 08:10 Blood Pressure 144/67 10/01/17 08:10 O2 Sat by Pulse Oximetry (%) 97 10/01/17 13:08 Constitutional: Yes: No Distress, Calm HENT: Yes: Atraumatic, Normocephalic Cardiovascular: Yes: Regular Rate and Rhythm Respiratory: Yes: Regular, Diminished. No: Rales, Rhonchi, SOB, Wheezes Gastrointestinal: Yes: Normal Bowel Sounds, Soft. No: Distention, Tenderness Extremities: Yes: WNL Edema: No Peripheral Pulses WNL: Yes Neurological: Yes: Alert Psychiatric: Yes: Alert Labs: CBC, BMP 09/27/17 12:25 09/27/17 06:35 INR, PTT INR 1.20 (0.82-1.09) H 09/18/17 06:05 - ....Imaging Chest X-ray: Report Reviewed, Image Reviewed EKG: Report Reviewed, Image Reviewed Other: Report Reviewed, Image Reviewed Assessment/Plan 81 year old man with a h/o HTN, HLD, CVA, h/o GI bleed dementia, h/o aspiration pneumonia admitted 09/15/17 with respiratory failure presumed secondary to aspiration pneumonia, pt was intubated in the ER, treated in the ICU for several days, then transferred to [facility]. Then had acute decompensation with hypoxia, cough, possible recurrence of aspiration. Supplemental O2 was given and pts hypoxia improved. Blood work showed a mildly elevated troponin. Elevated troponin-minimally elevated troponin with normal CK level -no further ischemic work up needed at this time -echo showed moderate -considered initiation of low dose bblocker however pt has HR range in the 50s- 60s thus risk likely greater than benefit at this point -this can be further evaluated as outpatient Aortic stenosis -moderate -no further work up needed at this time, monitor with serial echos as outpatient HTN-has been variable, some mildly elevated readings others low normal -does not require standing HTN meds at this point, can be re-evalauted as outpatient as pts condition improves Ok for discharge planning from a cardiac standpoint, please call with any additional questions.
[2017-10-01 18:55] VITALS: BP 140/68; PULSE 62; TEMP 98.7
== END 2017-10-01 18:40 | disposition home health service (06) | DRG 871 ==
LOC: JER 17:11 → JERBED 19:41 → JICU 21:12 → J7W 09-22 14:12
PROVIDERS: ADMIT Internal Medicine; ATTEND Internal Medicine
PROC: 0BH17EZ Insertion of Endotracheal Airway into Trachea, Via Natural or Artificial Opening (ICD-10-PCS; principal; 2017-09-15)
PROC: 5A1945Z Respiratory Ventilation, 24-96 Consecutive Hours (ICD-10-PCS; 2017-09-15)
DX: A41.9 Sepsis, unspecified organism (principal); J96.01 Acute respiratory failure with hypoxia; J96.02 Acute respiratory failure with hypercapnia; R53.2 Functional quadriplegia; J69.0 Pneumonitis due to inhalation of food and vomit; F03.91 Unspecified dementia, unspecified severity, with behavioral disturbance; M62.82 Rhabdomyolysis; F05 Delirium due to known physiological condition; N39.0 Urinary tract infection, site not specified; N17.9 Acute kidney failure, unspecified; J98.11 Atelectasis; B95.61 Methicillin susceptible Staphylococcus aureus infection as the cause of diseases classified elsewhere; Z88.0 Allergy status to penicillin; L89.152 Pressure ulcer of sacral region, stage 2; I12.9 Hypertensive chronic kidney disease with stage 1 through stage 4 chronic kidney disease, or unspecified chronic kidney disease; N18.9 Chronic kidney disease, unspecified; I35.0 Nonrheumatic aortic (valve) stenosis; I69.391 Dysphagia following cerebral infarction; R13.10 Dysphagia, unspecified; M10.9 Gout, unspecified; E78.00 Pure hypercholesterolemia, unspecified; F41.9 Anxiety disorder, unspecified; F32.9 Major depressive disorder, single episode, unspecified; I44.4 Left anterior fascicular block; D47.3 Essential (hemorrhagic) thrombocythemia; E86.0 Dehydration; R19.7 Diarrhea, unspecified; D64.9 Anemia, unspecified; R74.8 Abnormal levels of other serum enzymes
CPT/HCPCS: 36415; 36600; 70450-TC; 71045-TC-FY; 71250-TC; 74230-TC-FY; 80048; 80053; 81003; 81015; 82375; 82550; 82553; 82803; 82962; 83050; 83605; 83735; 83880; 84100; 84443; 84484; 84550; 85025; 85027; 85610; 85730; 87040; 87070; 87086; 87186; 87205; 87324; 87449; 87804; 87899; 92611-GN; 93005; 93010; 93306-TC; 94002; 94640; 94761; 99285-25; G0480; J0131; J7030